=== PATIENT | female | born 1930 | race Caucasian/White ===

== ENCOUNTER → 2017-04-05 | Outpatient (CLI) | payer MEDICARE | END | disposition home or self-care (01) | LOC: KCIC US 14:12 | DX: N83.291 Other ovarian cyst, right side (principal); Z90.710 Acquired absence of both cervix and uterus | CPT/HCPCS: 76856 ==

== ENCOUNTER → 2017-04-14 | Outpatient (CLI) | payer MEDICARE ==
[2017-04-14] MEDS: IOHEXOL 240 MG/ML 50ML VIAL. PO (14:45)
[2017-04-14] MEDS: IOHEXOL 300 MG/ML 100ML VIAL. IV (15:11)
[2017-04-14 15:17] LABS: ISTAT CREATININE 0.7 mg/dL (0.6-1.1)
== END | disposition home or self-care (01) ==
LOC: KCIC CT 13:53
DX: N28.1 Cyst of kidney, acquired (principal); D73.89 Other diseases of spleen; Z90.49 Acquired absence of other specified parts of digestive tract
CPT/HCPCS: 74177; 82565; Q9966; Q9967

== ENCOUNTER 2017-04-26 10:33 | Inpatient (IN) | payer MEDICARE ==
[2017-04-26 11:10] LABS: ADD MAN DIFF? NO
[2017-04-26 11:14] LABS: BASO % 0 % (0-3); EOS # 0.1 x10^3/uL (0.0-0.7); EOS % 1 % (0-3); HEMATOCRIT 45.6 % (36.0-47.0); HEMOGLOBIN 15.1 g/dL (12.0-15.5); LYMPH # 1.2 x10^3/uL (1.0-4.8); LYMPH % 10 % (24-48); MEAN CORPUSCULAR HEMOGLOBIN 30 pg (25-35); MEAN CORPUSCULAR HGB CONC 33 g/dL (31-37); MEAN CORPUSCULAR VOLUME 89 fL (79-100); MONO # 0.5 x10^3/uL (0.0-1.1); MONO % 5 % (0-9); NEUT # 9.6 x10^3uL (1.8-7.7); NEUT % 83 % (31-73); PLATELET COUNT 157 x10^3/uL (140-400); RED CELL DISTRIBUTION WIDTH 13.4 % (11.5-14.5); WHITE BLOOD COUNT 11.5 x10^3/uL (4.0-11.0)
[2017-04-26 11:23] LABS: ANION GAP 8 (6-14); BLOOD UREA NITROGEN 13 mg/dL (7-20); BUN/CREATININE RATIO 19 (6-20); CALCIUM 9.4 mg/dL (8.5-10.1); CARBON DIOXIDE 35 mmol/L (21-32); CHLORIDE 98 mmol/L (98-107); CREATININE 0.7 mg/dL (0.6-1.0); GFR 79.5; GLUCOSE 131 mg/dL (70-99); POTASSIUM 4.3 mmol/L (3.5-5.1); SODIUM 141 mmol/L (136-145)
[2017-04-26 11:28] LABS: ALBUMIN 3.6 g/dL (3.4-5.0); ALBUMIN/GLOBULIN RATIO 0.8 (1.0-1.7); ALK PHOS 106 U/L (46-116); ALT (SGPT) 22 U/L (14-59); AST (SGOT) 29 U/L (15-37); TOTAL BILIRUBIN 0.8 mg/dL (0.2-1.0); TOTAL PROTEIN 7.9 g/dL (6.4-8.2)
[2017-04-26 11:31] LABS: TROPONINI < 0.017 ng/mL (0.000-0.055)
[2017-04-26 11:34] LABS: NT-PRO BNP 958 pg/mL (0-449)
[2017-04-26 11:35] LABS: THYROID STIM HORMONE (TSH) 1.832 uIU/mL (0.358-3.74)
[2017-04-26] MEDS: AZITHRMYCN 500MG IVPB FOR OMNI 250 ML IV (12:39)
[2017-04-26] MEDS ORDERED: HYDROcodone/APAP 10/325 1 TAB TABLET PO (12:45)
[2017-04-26] MEDS ORDERED: MAGNESIUM HYDROXIDE 2,400 MG/30 ML ORAL.SUSP. PO (12:45)
[2017-04-26] MEDS ORDERED: LIDOCAINE 2% 20 ML VIAL. (12:49)
[2017-04-26 12:52] LABS: INFLUENZA A PATIENT NEGATIVE (NEGATIVE); INFLUENZA B PATIENT NEGATIVE (NEGATIVE); OBC FLU VALID
[2017-04-26] MEDS ORDERED: MIDAZOLAM HCL/PF 2 MG/2 ML VIAL. (13:08)
[2017-04-26] MEDS ORDERED: fentaNYL PF VIAL 100 MCG/2 ML VIAL (13:08)
[2017-04-26] MEDS ORDERED: ONDANSETRON PF 4 MG/2 ML VIAL. IV (13:15)
[2017-04-26] MEDS: LIDOCAINE 2% 20 ML VIAL. IJ (14:03)
[2017-04-26] MEDS: fentaNYL PF VIAL 100 MCG/2 ML VIAL IV (14:03)
[2017-04-26] MEDS: MIDAZOLAM HCL/PF 2 MG/2 ML VIAL. IV (14:04)
[2017-04-26] MEDS ORDERED: ceFAZolin SODIUM 1 GM in IV DEXTROSE 5% 50 ML IV (14:15)
[2017-04-26] MEDS ORDERED: ZOLPIDEM 5 MG TABLET. PO (14:15)
[2017-04-26] MEDS: cefTRIAXone IV Push 1 GM VIAL. IVP (15:00)
[2017-04-26] MEDS ORDERED: CHOLECALCIFEROL (VITAMIN D3) 1,000 UNIT TABLET PO (15:00)
[2017-04-26] MEDS: IPRATRPIUM/ALBUTEROL 0.5/2.5MG 3 ML NEBU. NEB ×2 (15:59→19:16)
[2017-04-26] MEDS ORDERED: IPRATRPIUM/ALBUTEROL 0.5/2.5MG 3 ML NEBU. NEB (16:00)
[2017-04-26] MEDS: fentaNYL 25MCG/HR PATCH 1 PATCH PATCH.TD72 TD (16:17)
[2017-04-26] MEDS: LOSARTAN POTASSIUM 25 MG TABLET. PO (16:17)
[2017-04-26] MEDS: ceFAZolin SODIUM IV Push 1 GM VIAL. IVP ×2 (16:18→21:15)
[2017-04-26] MEDS: PANTOPRAZOLE 40 MG TABLET.DR. PO (16:28)
[2017-04-26] MEDS: ALPRAZolam 0.25 MG TABLET PO ×2 (17:00→20:58)
[2017-04-26] MEDS: BUDESONIDE 0.5 MG/2 ML NEBU. NEB (19:16)
[2017-04-26 20:49] LABS: POC GLUCOSE 145 mg/dL (70-99)
[2017-04-26] MEDS: PREGABALIN 75 MG CAPSULE PO (20:58)
[2017-04-26] MEDS: HYDROXYCHLOROQUINE 200 MG TABLET PO (20:58)
[2017-04-26] MEDS: DULoxetine HCL 20 MG CAPSULE.DR PO (20:58)
[2017-04-26] MEDS: DOCUSATE SODIUM 100 MG CAPSULE. PO (20:58)
[2017-04-26] MEDS: ZOLPIDEM 5 MG TABLET. PO (20:59)
[2017-04-26] MEDS: ACETAMINOPHEN 325 MG TABLET. PO (21:10)
[2017-04-26] MEDS: LABETALOL 20 MG/4 ML DISP.SYRIN. IVP (21:32)
[2017-04-27 05:51] LABS: ADD MAN DIFF? NO
[2017-04-27 05:56] LABS: BASO % 0 % (0-3); EOS # 0.1 x10^3/uL (0.0-0.7); EOS % 1 % (0-3); HEMATOCRIT 40.9 % (36.0-47.0); HEMOGLOBIN 13.2 g/dL (12.0-15.5); LYMPH # 1.7 x10^3/uL (1.0-4.8); LYMPH % 17 % (24-48); MEAN CORPUSCULAR HEMOGLOBIN 29 pg (25-35); MEAN CORPUSCULAR HGB CONC 32 g/dL (31-37); MEAN CORPUSCULAR VOLUME 91 fL (79-100); MONO # 0.7 x10^3/uL (0.0-1.1); MONO % 7 % (0-9); NEUT # 7.3 x10^3uL (1.8-7.7); NEUT % 74 % (31-73); PLATELET COUNT 141 x10^3/uL (140-400); RED BLOOD COUNT 4.52 x10^6/uL (3.50-5.40); RED CELL DISTRIBUTION WIDTH 13.5 % (11.5-14.5); WHITE BLOOD COUNT 9.8 x10^3/uL (4.0-11.0)
[2017-04-27] MEDS: ceFAZolin SODIUM IV Push 1 GM VIAL. IVP (06:11)
[2017-04-27 06:19] LABS: ANION GAP 8 (6-14); BLOOD UREA NITROGEN 11 mg/dL (7-20); CALCIUM 8.7 mg/dL (8.5-10.1); CARBON DIOXIDE 33 mmol/L (21-32); CHLORIDE 99 mmol/L (98-107); CHOLESTEROL 164 mg/dL (0-200); CREATININE 0.8 mg/dL (0.6-1.0); GFR 68.2; GLUCOSE 90 mg/dL (70-99); HDLC 62 mg/dL (40-60); LDLC 82 mg/dL (0-100); NON-HDL CHOLESTEROL 102 mg/dL (0-129); POTASSIUM 3.6 mmol/L (3.5-5.1); SODIUM 140 mmol/L (136-145); TRIGLYCERIDES 101 mg/dL (0-150); VLDLC 20 mg/dL (0-40)
[2017-04-27 06:23] LABS: CHOLESTEROL/HDL RATIO 2.6
[2017-04-27] MEDS: IPRATRPIUM/ALBUTEROL 0.5/2.5MG 3 ML NEBU. NEB ×4 (07:32→19:36)
[2017-04-27] MEDS: BUDESONIDE 0.5 MG/2 ML NEBU. NEB ×2 (07:32→19:36)
[2017-04-27 08:31] LABS: POC GLUCOSE 94 mg/dL (70-99)
[2017-04-27] MEDS: PANTOPRAZOLE 40 MG TABLET.DR. PO (08:53)
[2017-04-27] MEDS: AZITHROMYCIN 250 MG TABLET. PO (08:54)
[2017-04-27] MEDS: PREGABALIN 75 MG CAPSULE PO ×2 (08:55→20:51)
[2017-04-27] MEDS: DULoxetine HCL 20 MG CAPSULE.DR PO ×2 (08:55→20:51)
[2017-04-27] MEDS: HYDROXYCHLOROQUINE 200 MG TABLET PO ×2 (08:56→20:51)
[2017-04-27] MEDS: ALPRAZolam 0.25 MG TABLET PO ×2 (08:56→20:51)
[2017-04-27] MEDS: DOCUSATE SODIUM 100 MG CAPSULE. PO ×2 (08:57→20:51)
[2017-04-27] MEDS: LOSARTAN POTASSIUM 25 MG TABLET. PO (08:57)
[2017-04-27] MEDS ORDERED: LIDOCAINE 2%/EPI 1:100,000 20 ML VIAL. (12:04)
[2017-04-27 12:34] LABS: POC GLUCOSE 95 mg/dL (70-99)
[2017-04-27] MEDS ORDERED: MIDAZOLAM HCL/PF 2 MG/2 ML VIAL. ×2 (13:33→14:03)
[2017-04-27] MEDS ORDERED: fentaNYL PF VIAL 100 MCG/2 ML VIAL (13:33)
[2017-04-27] MEDS ORDERED: diphenhydrAMINE 50 MG/ML VIAL (14:13)
[2017-04-27] MEDS: diphenhydrAMINE 50 MG/ML VIAL IVP (15:02)
[2017-04-27] MEDS: MIDAZOLAM HCL/PF 2 MG/2 ML VIAL. IV (15:04)
[2017-04-27] MEDS: fentaNYL PF VIAL 100 MCG/2 ML VIAL IV (15:04)
[2017-04-27] MEDS: BACITRACIN 50,000 UNIT in IV NORMAL SALINE 250ML 250 ML IRR (15:04)
[2017-04-27] MEDS: LIDOCAINE 2%/EPI 1:100,000 20 ML VIAL. IJ (15:05)
[2017-04-27] MEDS: cefTRIAXone IV Push 1 GM VIAL. IVP (17:05)
[2017-04-27 17:43] LABS: POC GLUCOSE 208 mg/dL (70-99)
[2017-04-27] MEDS ORDERED: ONDANSETRON PF 4 MG/2 ML VIAL. IV (17:45)
[2017-04-27] MEDS ORDERED: NO ANTICOAGULANT THERAPY. MC (17:45)
[2017-04-27] MEDS: LACTOBACILLUS RHAMNOSUS GG 1 CAPSULE. PO (20:51)
[2017-04-27] MEDS: ZOLPIDEM 5 MG TABLET. PO (20:51)
[2017-04-27 21:00] LABS: POC GLUCOSE 149 mg/dL (70-99)
[2017-04-28 00:11] LABS: HEMOGLOBIN A1C 5.4 % (4.8-5.6)
[2017-04-28 03:22] LABS: ADD MAN DIFF? NO
[2017-04-28] MEDS: HYDROcodone/APAP 5/325MG 1 TAB TABLET PO (03:24)
[2017-04-28 03:36] LABS: ANION GAP 5 (6-14); BLOOD UREA NITROGEN 13 mg/dL (7-20); CARBON DIOXIDE 34 mmol/L (21-32); CHLORIDE 99 mmol/L (98-107); CREATININE 0.8 mg/dL (0.6-1.0); GFR 68.2; GLUCOSE 101 mg/dL (70-99); POTASSIUM 3.8 mmol/L (3.5-5.1); SODIUM 138 mmol/L (136-145)
[2017-04-28 05:04] LABS: BASO % 0 % (0-3); EOS # 0.2 x10^3/uL (0.0-0.7); EOS % 2 % (0-3); HEMATOCRIT 39.6 % (36.0-47.0); LYMPH # 1.5 x10^3/uL (1.0-4.8); LYMPH % 15 % (24-48); MEAN CORPUSCULAR HEMOGLOBIN 30 pg (25-35); MEAN CORPUSCULAR HGB CONC 33 g/dL (31-37); MEAN CORPUSCULAR VOLUME 90 fL (79-100); MONO # 0.8 x10^3/uL (0.0-1.1); MONO % 9 % (0-9); NEUT # 7.1 x10^3uL (1.8-7.7); NEUT % 75 % (31-73); PLATELET COUNT 139 x10^3/uL (140-400); RED CELL DISTRIBUTION WIDTH 13.8 % (11.5-14.5); WHITE BLOOD COUNT 9.5 x10^3/uL (4.0-11.0)
[2017-04-28] MEDS: IPRATRPIUM/ALBUTEROL 0.5/2.5MG 3 ML NEBU. NEB ×4 (07:36→20:06)
[2017-04-28] MEDS: BUDESONIDE 0.5 MG/2 ML NEBU. NEB ×2 (07:36→20:06)
[2017-04-28 09:02] LABS: POC GLUCOSE 93 mg/dL (70-99)
[2017-04-28] MEDS: PANTOPRAZOLE 40 MG TABLET.DR. PO (09:05)
[2017-04-28] MEDS: AZITHROMYCIN 250 MG TABLET. PO (09:05)
[2017-04-28] MEDS: DOCUSATE SODIUM 100 MG CAPSULE. PO ×2 (09:05→22:36)
[2017-04-28] MEDS: HYDROXYCHLOROQUINE 200 MG TABLET PO ×2 (09:05→22:41)
[2017-04-28] MEDS: LACTOBACILLUS RHAMNOSUS GG 1 CAPSULE. PO ×2 (09:05→22:42)
[2017-04-28] MEDS: ALPRAZolam 0.25 MG TABLET PO ×2 (09:05→22:41)
[2017-04-28] MEDS: PREGABALIN 75 MG CAPSULE PO ×2 (09:05→22:42)
[2017-04-28] MEDS: LOSARTAN POTASSIUM 25 MG TABLET. PO (09:06)
[2017-04-28] MEDS: DULoxetine HCL 20 MG CAPSULE.DR PO ×2 (11:06→22:43)
[2017-04-28] MEDS: LACTULOSE 20 GM/30 ML SOLUTION. PO (11:11)
[2017-04-28 21:40] LABS: POC GLUCOSE 155 mg/dL (70-99)
[2017-04-28] MEDS: CEFPODOXIME PROXETIL 100 MG TABLET. PO (22:41)
[2017-04-28] MEDS: ZOLPIDEM 5 MG TABLET. PO (22:42)
[2017-04-29] MEDS: BUDESONIDE 0.5 MG/2 ML NEBU. NEB (07:06)
[2017-04-29] MEDS: IPRATRPIUM/ALBUTEROL 0.5/2.5MG 3 ML NEBU. NEB ×2 (07:06→11:28)
[2017-04-29 08:02] LABS: POC GLUCOSE 121 mg/dL (70-99)
[2017-04-29] MEDS: DULoxetine HCL 20 MG CAPSULE.DR PO (08:35)
[2017-04-29] MEDS: PANTOPRAZOLE 40 MG TABLET.DR. PO (08:35)
[2017-04-29] MEDS: AZITHROMYCIN 250 MG TABLET. PO (08:35)
[2017-04-29] MEDS: CEFPODOXIME PROXETIL 100 MG TABLET. PO (08:35)
[2017-04-29] MEDS: HYDROXYCHLOROQUINE 200 MG TABLET PO (08:35)
[2017-04-29] MEDS: PREGABALIN 75 MG CAPSULE PO (08:36)
[2017-04-29] MEDS: LACTOBACILLUS RHAMNOSUS GG 1 CAPSULE. PO (08:36)
[2017-04-29] MEDS: DOCUSATE SODIUM 100 MG CAPSULE. PO (08:36)
[2017-04-29] MEDS: LOSARTAN POTASSIUM 25 MG TABLET. PO (08:36)
[2017-04-29] MEDS: ALPRAZolam 0.25 MG TABLET PO (08:36)
[2017-04-29 11:33] LABS: POC GLUCOSE 121 mg/dL (70-99)
[2017-04-29] MEDS: fentaNYL 25MCG/HR PATCH 1 PATCH PATCH.TD72 TD (11:51)
[2017-04-29] MEDS: CARVEDILOL 3.125 MG TABLET. PO (13:25)
== END 2017-04-29 15:17 | disposition home health service (06) | DRG 242 ==
LOC: ER 10:33 → 2 NORTH 13:00
PROC: 5A1213Z Performance of Cardiac Pacing, Intermittent (ICD-10-PCS; 2017-04-26)
PROC: 0JH606Z Insertion of Pacemaker, Dual Chamber into Chest Subcutaneous Tissue and Fascia, Open Approach (ICD-10-PCS; principal; 2017-04-27)
PROC: 02H63JZ Insertion of Pacemaker Lead into Right Atrium, Percutaneous Approach (ICD-10-PCS; 2017-04-27)
PROC: 02HK3JZ Insertion of Pacemaker Lead into Right Ventricle, Percutaneous Approach (ICD-10-PCS; 2017-04-27)
DX: I49.5 Sick sinus syndrome (principal); J96.21 Acute and chronic respiratory failure with hypoxia; I11.0 Hypertensive heart disease with heart failure; J18.9 Pneumonia, unspecified organism; E11.42 Type 2 diabetes mellitus with diabetic polyneuropathy; I50.9 Heart failure, unspecified; J44.0 Chronic obstructive pulmonary disease with (acute) lower respiratory infection; J44.1 Chronic obstructive pulmonary disease with (acute) exacerbation; E78.5 Hyperlipidemia, unspecified; G47.33 Obstructive sleep apnea (adult) (pediatric); G90.01 Carotid sinus syncope; I25.10 Atherosclerotic heart disease of native coronary artery without angina pectoris; J20.9 Acute bronchitis, unspecified; K21.9 Gastro-esophageal reflux disease without esophagitis; K59.00 Constipation, unspecified; M06.9 Rheumatoid arthritis, unspecified; M79.7 Fibromyalgia; Z80.8 Family history of malignant neoplasm of other organs or systems; Z82.49 Family history of ischemic heart disease and other diseases of the circulatory system; Z87.81 Personal history of (healed) traumatic fracture; Z87.891 Personal history of nicotine dependence; Z90.710 Acquired absence of both cervix and uterus; Z91.19 Patient's noncompliance with other medical treatment and regimen; Z99.81 Dependence on supplemental oxygen; E66.9 Obesity, unspecified; Z68.30 Body mass index [BMI] 30.0-30.9, adult; F32.9 Major depressive disorder, single episode, unspecified; G89.29 Other chronic pain; Z88.2 Allergy status to sulfonamides; Z91.041 Radiographic dye allergy status
CPT/HCPCS: 33210; 33217; 36415; 71045; 71250; 80048; 80053; 80061; 82962; 83036; 83880; 84443; 84484; 85025; 87804; 87804-59; 93005; 93306; 93970; 94640; 94760; 96365; 96367; 99152; 99153; 99285-25; C1785; C1892; C1898; J0456; J0690; J0696; J1200; J1644; J2250; J3010; J3490; J7050; J7620; J7626; Q0144

== ENCOUNTER → 2017-05-22 | Outpatient (CLI) | payer MEDICARE | END | disposition home or self-care (01) | LOC: PMGWOUND 13:13 | DX: E11.621 Type 2 diabetes mellitus with foot ulcer (principal); L97.412 Non-pressure chronic ulcer of right heel and midfoot with fat layer exposed; F32.9 Major depressive disorder, single episode, unspecified; F41.9 Anxiety disorder, unspecified; M19.90 Unspecified osteoarthritis, unspecified site; E78.00 Pure hypercholesterolemia, unspecified; E66.9 Obesity, unspecified; E11.42 Type 2 diabetes mellitus with diabetic polyneuropathy; J44.9 Chronic obstructive pulmonary disease, unspecified; K21.9 Gastro-esophageal reflux disease without esophagitis; I25.10 Atherosclerotic heart disease of native coronary artery without angina pectoris; J44.0 Chronic obstructive pulmonary disease with (acute) lower respiratory infection; J44.1 Chronic obstructive pulmonary disease with (acute) exacerbation; I11.0 Hypertensive heart disease with heart failure; I50.9 Heart failure, unspecified; E78.5 Hyperlipidemia, unspecified; G47.33 Obstructive sleep apnea (adult) (pediatric); G89.29 Other chronic pain; M06.9 Rheumatoid arthritis, unspecified; Z87.891 Personal history of nicotine dependence; Z90.49 Acquired absence of other specified parts of digestive tract; Z90.710 Acquired absence of both cervix and uterus; Z68.30 Body mass index [BMI] 30.0-30.9, adult | CPT/HCPCS: 97597 ==

== ENCOUNTER → 2017-05-30 | Outpatient (CLI) | payer MEDICARE | END | disposition home or self-care (01) | LOC: PMGWOUND 13:00 | DX: E11.621 Type 2 diabetes mellitus with foot ulcer (principal); L97.412 Non-pressure chronic ulcer of right heel and midfoot with fat layer exposed; F32.9 Major depressive disorder, single episode, unspecified; F41.9 Anxiety disorder, unspecified; M19.90 Unspecified osteoarthritis, unspecified site; E78.00 Pure hypercholesterolemia, unspecified; E66.9 Obesity, unspecified; E11.42 Type 2 diabetes mellitus with diabetic polyneuropathy; J44.9 Chronic obstructive pulmonary disease, unspecified; K21.9 Gastro-esophageal reflux disease without esophagitis; I25.10 Atherosclerotic heart disease of native coronary artery without angina pectoris; J44.0 Chronic obstructive pulmonary disease with (acute) lower respiratory infection; J44.1 Chronic obstructive pulmonary disease with (acute) exacerbation; I11.0 Hypertensive heart disease with heart failure; I50.9 Heart failure, unspecified; G47.33 Obstructive sleep apnea (adult) (pediatric); G89.29 Other chronic pain; M06.9 Rheumatoid arthritis, unspecified; Z87.891 Personal history of nicotine dependence; Z90.49 Acquired absence of other specified parts of digestive tract; Z90.710 Acquired absence of both cervix and uterus; Z68.30 Body mass index [BMI] 30.0-30.9, adult; Z95.0 Presence of cardiac pacemaker; Z98.62 Peripheral vascular angioplasty status | CPT/HCPCS: 99214 ==

== ENCOUNTER → 2017-06-06 | Outpatient (CLI) | payer MEDICARE | END | disposition home or self-care (01) | LOC: PMGWOUND 11:55 | DX: E11.621 Type 2 diabetes mellitus with foot ulcer (principal); L97.512 Non-pressure chronic ulcer of other part of right foot with fat layer exposed; L97.411 Non-pressure chronic ulcer of right heel and midfoot limited to breakdown of skin; F41.9 Anxiety disorder, unspecified; I25.10 Atherosclerotic heart disease of native coronary artery without angina pectoris; J44.1 Chronic obstructive pulmonary disease with (acute) exacerbation; K21.9 Gastro-esophageal reflux disease without esophagitis; I11.0 Hypertensive heart disease with heart failure; I50.9 Heart failure, unspecified; F32.9 Major depressive disorder, single episode, unspecified; G47.33 Obstructive sleep apnea (adult) (pediatric); G89.29 Other chronic pain; E78.00 Pure hypercholesterolemia, unspecified; M06.9 Rheumatoid arthritis, unspecified; E11.42 Type 2 diabetes mellitus with diabetic polyneuropathy; M19.90 Unspecified osteoarthritis, unspecified site; Z90.49 Acquired absence of other specified parts of digestive tract; Z90.710 Acquired absence of both cervix and uterus; Z87.891 Personal history of nicotine dependence; Z98.62 Peripheral vascular angioplasty status; Z68.30 Body mass index [BMI] 30.0-30.9, adult; Z95.0 Presence of cardiac pacemaker | CPT/HCPCS: 97597 ==

== ENCOUNTER 2018-02-13 07:30 | Emergency (ER) | payer MEDICARE ==
[~2018-02-13] VITALS: Ht 152.4 cm; Wt 69.4 kg
[~2018-02-13 07:30] MED LIST: ALBU2.5V14 IH; ALBU2.5V14 NEB; ALPR0.25 PO; ALPR0.254 PO; ALPR0.5T PO; ALPR0.5T10 PO; ALPR0.5T6 PO; AMOX500C PO; AZIT250T6 PO; BISA-42 PO; CARV12.511 PO; CARV3.1210 PO; CARV6.25 PO; CEFP100T PO; CHOL100013 PO; CLON0.2T PO; CRAN400T5 PO; CRAN500C6 PO; CRESTOR5 MG PO; CYCL10TA2 PO; DOCU-109 PO; DULO20CA PO; DULO30CA2 PO; DULO60CA6 PO; FENT1PAT13 TP; FENT1PAT15 TP; FENT1PAT17 TP; FENT1PAT90 TD; FLUT1DIS3 IH; FURO20TA3 PO; HYDR-2769 PO; HYDR-3135 PO; HYDR200T5 PO; INSU100I11 SQ; INSU100I16 SQ; LIDO700A39 TP; LIDO700A4 TP; LOSA25TA PO; LOSA25TA54 PO; MELA1TAB11 PO; MELA3TAB2 PO; METO-239 PO; MULT-208 PO; NIAC500C6 PO; OMEP20CA9 PO; POLY500P13 MC; POTA10TA12 PO; PRED-220 PO; PRED20TA PO; PREG75CA PO; TOBR5DRO6 OS; TOBR5DRO6 OU; ZOLP10TA4 PO; ZOLP5TAB PO; melatonin PO
[2018-02-13] MEDS ORDERED: ACETAMINOPHEN 325 MG TABLET. PO ONE (08:15)
--- NOTE | 2018-02-13 08:21 | PHYS DOC ---
Past Medical History Past Medical History: Arthritis, CAD, CHF, Constipation, COPD, Depression, Diabetes-Type II, Fibromyalgia, GERD, Hypertension, Pneumonia, UTI, Other Additional Past Medical Histor: NEUROPATHY Past Surgical History: Appendectomy, Cholecystectomy, Hysterectomy, Pacemaker, Other Additional Past Surgical Histo: NECK/BACK,HIP,EYE,CARPAL TUNNEL Alcohol Use: None Drug Use: None Adult General Chief Complaint Chief Complaint: LACERATION/AVULSION HPI HPI 87 y/o female presents to ER for complaints of mechanical fall. She reports she was attempting to get out of bed this morning when she lost her balance causing her to fall forward. Patient states she struck her head on the wooden floor having laceration to her forehead. Patient reports she had her corrective glasses on- she denies glasses broke during the fall. She reports she does have some tenderness around her eyebrows with no wounds or abrasions. Denies loss of consciousness. Patient denies any symptoms prior to the fall. Patient denies any dizziness or vision changes. Patient states she has chronic pain and has a fentanyl patch on. Patient denies any acute neck or back pain. Patient denies any vomiting episodes. Patient's son Tono who is at bedside denies patient with confusion or change in mental status since fall. Review of Systems Review of Systems Constitutional: Denies lethargy/confusion Eyes: Denies change in visual acuity, redness, or eye pain [] HENT: Denies nosebleed Respiratory: Denies cough or shortness of breath [] Cardiovascular: Denies CP GI: Denies abdominal pain, nausea, vomiting, bloody stools or diarrhea [] : Denies dysuria or hematuria [] Musculoskeletal: Reports chronic neck/back pain no acute changes. Reports lt upper arm pain Integument: Reports laceration mid forehead. Reports bruising to upper arms/ knees- which she reports she bruises easy and most bruising from previous injury Neurologic: Denies focal weakness or sensory changes. Denies dizziness. Reports mild WATSON All other systems were reviewed and found to be within normal limits, except as documented in this note. Current Medications Current Medications Current Medications Medications (Trade) Dose Ordered Sig/Lindsey Start Time Stop Time Status Last Admin Dose Admin Acetaminophen (Tylenol) 650 mg 1X ONCE 02/13/18 08:15 02/13/18 08:16 DC 02/13/18 08:15 650 MG Allergies Allergies Allergies Coded Allergies Type Severity Reaction Last Updated Verified Iodinated Contrast- Oral and IV Dye Allergy Intermediate Itching 07/31/17 Yes I S O L A T I O N *CONTACT* Allergy Unknown 07/31/17 Yes Physical Exam Physical Exam Constitutional: Well developed, well nourished, no acute distress, non-toxic appearance. Clear speech HENT: Normocephalic, abrasion/laceration mid forehead at hairline- no active bleeding/swelling or ecchymosis at site; bilateral ears normal, oropharynx moist , no oral injuries, bruising to bridge of nose- no swelling or open wounds. Bilat. nares patent Eyes: 2mm PERRLA, EOMI- no pain with eye movement, no nystagmus, conjunctiva normal, no discharge. [] Neck: Normal range of motion, diffuse tenderness on palp. of neck with pt reporting chronic in nature- no midline spinal deformity/crepitus, supple, no stridor. [] Cardiovascular: Heart rate regular rhythm, no murmur [] Lungs & Thorax: Bilateral breath sounds clear to auscultation. Resp. equal/ nonlabored. No chest wall tenderness/visible injury Abdomen: Bowel sounds normal, soft, no tenderness Skin: Warm, dry Back: Diffuse tenderness on palp. of back- no focal area or visible injury- pt reports pain to be chronic in nature with no acute change- no midline spinal deformity, no CVA tenderness. [] Extremities: Pelvis stable/nontender. No cyanosis, no clubbing, ROM intact, no edema. Bruising to upper extremities/bilat. knees- nontender on palp. with pt reporting she bruises easy and doesn't feel these are from today's fall. Lt upper arm midshaft tenderness with lateral ecchymosis- no deformity or open wounds. Pt has full ROM of lt shoulder/elbow/wrist/hand. 2+ radial bilat. 2+ posterior tibial/dorsalis pedis Neurologic: Alert and oriented X 3, normal motor function, normal sensory function, no focal deficits noted. [] Psychologic: Affect normal, judgement normal, mood normal. [] Current Patient Data Vital Signs Vital Signs Date Time Temp Pulse Resp B/P (MAP) Pulse Ox O2 Delivery O2 Flow Rate FiO2 02/13/18 10:24 82 20 186/85 (118) 96 Nasal Cannula 2.0 1/8/19 07:50 97.7 97.7 Lab Values Laboratory Tests Test 02/13/18 09:40 Urine Collection Type Clean catch Urine Color Yellow Urine Clarity Clear Urine pH 6.5 Urine Specific Landers 1.020 Urine Protein Negative mg/dL (NEG-TRACE) Urine Glucose (UA) Negative mg/dL (NEG) Urine Ketones (Stick) Negative mg/dL (NEG) Urine Blood Negative (NEG) Urine Nitrite Negative (NEG) Urine Bilirubin Negative (NEG) Urine Urobilinogen Dipstick 0.2 mg/dL (0.2 mg/dL) Urine Leukocyte Esterase Small (NEG) Urine RBC 0 /HPF (0-2) Urine WBC 1-4 /HPF (0-4) Urine Squamous Epithelial Cells Occ /LPF Urine Bacteria 0 /HPF (0-FEW) Urine Mucus Slight /LPF EKG EKG [] Radiology/Procedures Radiology/Procedures Laceration Repair by me: [id number] Anesthesia: none Location: Forehead hairline Foreign body: None detected after copious irrigation and exploration Technique: Dermabond Complexity: No subcutaneous sutures/edge excision Post Closure Length: 0.5 cm Patient's bleeding was easily controlled in the department and there is no indication of anemia. No evidence of neurologic injury, vascular injury, or foreign body. Patient is appropriate for outpatient follow up. 48 hour wound check. Scar minimization instructions given. PROCEDURE: CT HEAD AND CERVICAL SPINE WO Examination: CT head and cervical spine without contrast CT HEAD INDICATION: fall- front/back head injury
previous COMPARISON: None Available. Exposure: One or more of the following individualized dose reduction techniques were utilized for this examination: 1. Automated exposure control 2. Adjustment of the mA and/or kV according to patient size 3. Use of iterative reconstruction technique TECHNIQUE: 5 mm contiguous axial images were obtained from the skull base to the vertex in both bone and soft tissue algorithm. FINDINGS: Moderate bilateral periventricular white matter hypodensities likely chronic small vessel ischemic disease. There is mild soft tissue swelling identified in the mid upper forehead region likely secondary to soft tissue injury. No evidence of acute intracranial hemorrhage. No extra-axial fluid collections. No mass effect or midline shift. Ventricular size is appropriate. Basal cisterns are patent. No fractures identified.Silva-white differentiation is preserved.Paranasal sinuses and mastoid air cells are clear. IMPRESSION: 1. No acute intracranial findings. 2. Mild soft tissue swelling identified in the mid upper forehead region likely secondary to soft tissue injury. . CT CERVICAL SPINE INDICATION: fall- front/back head injury
previous COMPARISON: None Available. Technique: 2.5 mm contiguous axial images were obtained from the skull base through the cervicothoracic junction in both bone and soft tissue algorithm. Additional sagittal and coronal reconstructions were also performed. FINDINGS: Vertebral body heights are maintained. There is loss of normal cervical lordosis. The lateral masses of C1 are aligned upon C2. No fractures identified. Moderate to severe intervertebral disc height loss identified at C3-C4, C4-C5 vertebral levels. There is mild 2 mm anterolisthesis of C4 on C5. Moderate size anterior osteophyte formation identified at C4, C5, C6 vertebral levels. Diffuse disc bulges identified at C4-C5, C5-C6, C6-C7 vertebral levels. There is a small bony density measuring 7 mm extending from the medial left inferior facet of C4 extending into the spinal canal could be a bony excrescence or exostosis. Multilevel facet degenerative changes. Severe degenerative changes C1-C2 vertebral level. Calcification identified at the C1-C2 vertebral levels likely ligamentous calcification with mild narrowing of the cervicocranial junction. IMPRESSION: 1. Moderate to severe degenerative changes cervical spine as described above. There is a loss of normal cervical lordosis. No obvious acute fracture visualized. 2. A 7 mm small bony density extending from the medial left inferior facet of C4 extending into the spinal canal could be a bony excrescence or exostosis. Electronically signed by: Carl Medina MD (02/13/2018 10:14 AM) [facility] DICTATED and SIGNED BY: CARL MEDINA MD DATE: 02/13/18 0959 PROCEDURE: HUMERUS LEFT Left humerus, 2 views, 02/13/2017: HISTORY: Arm injury, pain There is mild patchy bony demineralization. Degenerative changes are present at the left shoulder. There are periarticular calcifications adjacent to the left AC joint. No acute fracture is identified. A pacemaker generator and leads are projected over the left upper chest. IMPRESSION: No acute bony abnormality is detected. Electronically signed by: Kenton Recinos MD (02/13/2018 8:52 AM) [facility] DICTATED and SIGNED BY: KENTON RECINOS MD DATE: 02/13/18 1022 Course & Med Decision Making Course & Med Decision Making Pertinent Labs and Imaging studies reviewed. (See chart for details) [] Dragon Disclaimer Dragon Disclaimer This electronic medical record was generated, in whole or in part, using a voice recognition dictation system. Departure Departure Impression: Primary Impression: Head injury Additional Impressions: Left upper arm injury Fall Disposition: HOME, SELF-CARE Condition: STABLE Referrals: KARAN KIMBLE MD (PCP) Patient Instructions: Arm Sling Use, [id number], Contusion, Fall Prevention and Home Safety, Head Injury, Adult, Laceration Care, Adult, Tissue Adhesive Wound Care Additional Instructions: Keep your appointment tomorrow with your primary care physician for reevaluation. Continue home medications as prescribed. Return to the emergency Department as soon as possible if experiencing any neurologic changes as discussed in head injury instructions. Problem Qualifiers CALVIN MCKEON APRN Feb 13, 2018 08:21
--- NOTE | 2018-02-13 08:56 | RAD ---
Left humerus, 2 views, 02/13/2017: HISTORY: Arm injury, pain There is mild patchy bony demineralization. Degenerative changes are present at the left shoulder. There are periarticular calcifications adjacent to the left AC joint. No acute fracture is identified. A pacemaker generator and leads are projected over the left upper chest. IMPRESSION: No acute bony abnormality is detected. Electronically signed by: Kenton Recinos MD (02/13/2018 8:52 AM) [facility]
[2018-02-13 10:01] LABS: BILIRUBIN,URINE NEGATIVE (NEG); CLARITY,URINE CLEAR; COLOR,URINE YELLOW; NITRITE,URINE NEGATIVE (NEG); PH,URINE 6.5; PROTEIN,URINE NEGATIVE (NEG-TRACE); UROBILINOGEN,URINE 0.2 mg/dL (0.2 mg/dL)
--- NOTE | 2018-02-13 10:19 | RAD ---
Examination: CT head and cervical spine without contrast CT HEAD INDICATION: fall- front/back head injury
previous COMPARISON: None Available. Exposure: One or more of the following individualized dose reduction techniques were utilized for this examination: 1. Automated exposure control 2. Adjustment of the mA and/or kV according to patient size 3. Use of iterative reconstruction technique TECHNIQUE: 5 mm contiguous axial images were obtained from the skull base to the vertex in both bone and soft tissue algorithm. FINDINGS: Moderate bilateral periventricular white matter hypodensities likely chronic small vessel ischemic disease. There is mild soft tissue swelling identified in the mid upper forehead region likely secondary to soft tissue injury. No evidence of acute intracranial hemorrhage. No extra-axial fluid collections. No mass effect or midline shift. Ventricular size is appropriate. Basal cisterns are patent. No fractures identified.Silva-white differentiation is preserved.Paranasal sinuses and mastoid air cells are clear. IMPRESSION: 1. No acute intracranial findings. 2. Mild soft tissue swelling identified in the mid upper forehead region likely secondary to soft tissue injury. . CT CERVICAL SPINE INDICATION: fall- front/back head injury
previous COMPARISON: None Available. Technique: 2.5 mm contiguous axial images were obtained from the skull base through the cervicothoracic junction in both bone and soft tissue algorithm. Additional sagittal and coronal reconstructions were also performed. FINDINGS: Vertebral body heights are maintained. There is loss of normal cervical lordosis. The lateral masses of C1 are aligned upon C2. No fractures identified. Moderate to severe intervertebral disc height loss identified at C3-C4, C4-C5 vertebral levels. There is mild 2 mm anterolisthesis of C4 on C5. Moderate size anterior osteophyte formation identified at C4, C5, C6 vertebral levels. Diffuse disc bulges identified at C4-C5, C5-C6, C6-C7 vertebral levels. There is a small bony density measuring 7 mm extending from the medial left inferior facet of C4 extending into the spinal canal could be a bony excrescence or exostosis. Multilevel facet degenerative changes. Severe degenerative changes C1-C2 vertebral level. Calcification identified at the C1-C2 vertebral levels likely ligamentous calcification with mild narrowing of the cervicocranial junction. IMPRESSION: 1. Moderate to severe degenerative changes cervical spine as described above. There is a loss of normal cervical lordosis. No obvious acute fracture visualized. 2. A 7 mm small bony density extending from the medial left inferior facet of C4 extending into the spinal canal could be a bony excrescence or exostosis. Electronically signed by: Carl Nelson MD (02/13/2018 10:14 AM) [facility]
[2018-02-13 10:20] LABS: BACTERIA,URINE 0 /HPF (0-FEW); RBC,URINE 0 /HPF (0-2); SQUAMOUS EPITHELIAL CELL,UR OCC /LPF
[2018-02-13 10:24] VITALS: BP 186/85
== END 2018-02-13 10:47 | disposition home or self-care (01) ==
LOC: ER 07:30
DX: S01.81XA Laceration without foreign body of other part of head, initial encounter (principal); S40.022A Contusion of left upper arm, initial encounter; M54.2 Cervicalgia; K21.9 Gastro-esophageal reflux disease without esophagitis; J44.9 Chronic obstructive pulmonary disease, unspecified; I11.0 Hypertensive heart disease with heart failure; I50.9 Heart failure, unspecified; E11.40 Type 2 diabetes mellitus with diabetic neuropathy, unspecified; I25.10 Atherosclerotic heart disease of native coronary artery without angina pectoris; Z95.0 Presence of cardiac pacemaker; Z91.041 Radiographic dye allergy status; W18.09XA Striking against other object with subsequent fall, initial encounter; Y93.89 Activity, other specified; Y92.89 Other specified places as the place of occurrence of the external cause; Y99.8 Other external cause status
CPT/HCPCS: 12011; 70450; 72125; 73060; 81001; 87086; 99284-25

== ENCOUNTER 2018-02-23 12:09 | Emergency (ER) | payer MEDICARE ==
[~2018-02-23] VITALS: Ht 152.4 cm; Wt 68.0 kg
[2018-02-23] MEDS: KETOROLAC 15 MG/ML VIAL. IV ONE (13:17)
[2018-02-23] MEDS: PROCHLORPERAZINE 10 MG/2 ML VIAL. IV ONE (13:18)
[2018-02-23] MEDS: MORPHINE SULFATE 4 MG/ML VIAL. IV ONE ×2 (13:18→14:34)
[2018-02-23] MEDS: IV NORMAL SALINE 500ML BAG 500 ML IV ONE (13:19)
[2018-02-23 13:49] LABS: CALCIUM 9.2 mg/dL (8.5-10.1); GFR 52.6; POTASSIUM 3.8 mmol/L (3.5-5.1)
[2018-02-23 14:22] LABS: BASO % 0 % (0-3); EOS # 0.1 x10^3/uL (0.0-0.7); EOS % 1 % (0-3); HEMATOCRIT 39.9 % (36.0-47.0); HEMOGLOBIN 13.5 g/dL (12.0-15.5); LYMPH # 1.3 x10^3/uL (1.0-4.8); LYMPH % 17 % (24-48); MEAN CORPUSCULAR HEMOGLOBIN 30 pg (25-35); MEAN CORPUSCULAR HGB CONC 34 g/dL (31-37); MEAN CORPUSCULAR VOLUME 88 fL (79-100); MONO # 0.5 x10^3/uL (0.0-1.1); MONO % 7 % (0-9); NEUT # 5.8 x10^3uL (1.8-7.7); NEUT % 76 % (31-73); PLATELET COUNT 172 x10^3/uL (140-400); RED BLOOD COUNT 4.54 x10^6/uL (3.50-5.40); RED CELL DISTRIBUTION WIDTH 14.5 % (11.5-14.5); WHITE BLOOD COUNT 7.7 x10^3/uL (4.0-11.0)
[2018-02-23] MEDS ORDERED: HYDR2TAB31 PO (15:02)
[2018-02-23 15:12] VITALS: BP 150/68
--- NOTE | 2018-02-23 15:18 | PHYS DOC ---
Past Medical History Past Medical History: Arthritis, CAD, CHF, Constipation, COPD, Depression, Diabetes-Type II, Fibromyalgia, GERD, Hypertension, Pneumonia, UTI, Other Additional Past Medical Histor: NEUROPATHY Past Surgical History: Appendectomy, Cholecystectomy, Hysterectomy, Pacemaker, Other Additional Past Surgical Histo: NECK/BACK,HIP,EYE,CARPAL TUNNEL Alcohol Use: None Drug Use: None Adult General Chief Complaint Chief Complaint: HEADACHE HPI HPI Patient is a 87 year old female who presents with generalized headaches. The patient fell about one week earlier. She was evaluated in this emergency department for facial trauma. She underwent CT scan of the head, neck, and face. There were no acute findings on her scan. She was discharged to home. The patient presents to the ER today complaining of persistent headaches. Headaches are bitemporal in nature and her normal pain medications including hydrocodone and fentanyl patch at home have not alleviated her headache symptoms. She also took some ibuprofen without relief. No nausea or vomiting. No vision changes. No dizziness or gait disturbance. The patient does have 24/7 nursing care in home at baseline. Primary complaint today is headache. No focal neurologic complaints. Review of Systems Review of Systems Constitutional: Denies fever or chills Eyes: Denies change in visual acuity HENT: Denies nasal congestion or sore throat Respiratory: Denies cough or shortness of breath Cardiovascular: No additional information not addressed in HPI GI: Denies abdominal pain, nausea, vomiting : Denies Musculoskeletal: Denies back pain Integument: Denies rash or skin lesions Neurologic: WATSON as documented above. No focal neurologic complaints Endocrine: Denies polyuria or polydipsia All other systems were reviewed and found to be within normal limits, except as documented in this note. Current Medications Current Medications Current Medications Medications (Trade) Dose Ordered Sig/Lindsey Start Time Stop Time Status Last Admin Dose Admin Ketorolac Tromethamine (Toradol 15mg Vial) 15 mg 1X ONCE 02/23/18 13:00 02/23/18 13:01 DC 02/23/18 13:17 15 MG Morphine Sulfate (Morphine Sulfate) 4 mg 1X ONCE 02/23/18 14:15 02/23/18 14:16 DC 02/23/18 14:34 4 MG Prochlorperazine Edisylate (Compazine) 10 mg 1X ONCE 02/23/18 13:00 02/23/18 13:01 DC 02/23/18 13:18 10 MG Sodium Chloride 500 ml @ 500 mls/hr 1X ONCE 02/23/18 13:00 02/23/18 13:59 DC 02/23/18 13:19 500 MLS/HR Allergies Allergies Allergies Coded Allergies Type Severity Reaction Last Updated Verified Iodinated Contrast- Oral and IV Dye Allergy Intermediate Itching 07/31/17 Yes I S O L A T I O N *CONTACT* Allergy Unknown 07/31/17 Yes Physical Exam Physical Exam Constitutional: Well developed, well nourished, no acute distress, non-toxic appearance HENT: Normocephalic, ecchymosis present around the bilateral orbits and zygoma, no acute swelling, bilateral external ears normal, oropharynx moist, no oral exudates, nose normal. Eyes: PERRLA, EOMI, conjunctiva normal Neck: Normal range of motion, no tenderness Cardiovascular:Heart rate regular rhythm, no murmur Lungs & Thorax: Bilateral breath sounds clear to auscultation Abdomen: Bowel sounds normal, soft, no tenderness Skin: Warm, dry, no erythema, no rash Back: No tenderness Extremities: No tenderness, no edema Neurologic: Alert and oriented X 3, normal motor function Psychologic: Affect normal Current Patient Data Vital Signs Vital Signs Date Time Temp Pulse Resp B/P (MAP) Pulse Ox O2 Delivery O2 Flow Rate FiO2 02/23/18 14:34 18 95 Room Air 02/23/18 12:28 97.5 65 156/67 (96) 2.0 97.5 Lab Values Laboratory Tests Test 02/23/18 13:10 White Blood Count 7.7 x10^3/uL (4.0-11.0) Red Blood Count 4.54 x10^6/uL (3.50-5.40) Hemoglobin 13.5 g/dL (12.0-15.5) Hematocrit 39.9 % (36.0-47.0) Mean Corpuscular Volume 88 fL (79-100) Mean Corpuscular Hemoglobin 30 pg (25-35) Mean Corpuscular Hemoglobin Concent 34 g/dL (31-37) Red Cell Distribution Width 14.5 % (11.5-14.5) Platelet Count 172 x10^3/uL (140-400) Neutrophils (%) (Auto) 76 % (31-73) H Lymphocytes (%) (Auto) 17 % (24-48) L Monocytes (%) (Auto) 7 % (0-9) Eosinophils (%) (Auto) 1 % (0-3) Basophils (%) (Auto) 0 % (0-3) Neutrophils # (Auto) 5.8 x10^3uL (1.8-7.7) Lymphocytes # (Auto) 1.3 x10^3/uL (1.0-4.8) Monocytes # (Auto) 0.5 x10^3/uL (0.0-1.1) Eosinophils # (Auto) 0.1 x10^3/uL (0.0-0.7) Basophils # (Auto) 0.0 x10^3/uL (0.0-0.2) Sodium Level 137 mmol/L (136-145) Potassium Level 3.8 mmol/L (3.5-5.1) Chloride Level 98 mmol/L (98-107) Carbon Dioxide Level 32 mmol/L (21-32) Anion Gap 7 (6-14) Blood Urea Nitrogen 16 mg/dL (7-20) Creatinine 1.0 mg/dL (0.6-1.0) Estimated GFR (Cockcroft-Gault) 52.6 Glucose Level 181 mg/dL (70-99) H Calcium Level 9.2 mg/dL (8.5-10.1) Troponin I Quantitative 0.023 ng/mL (0.000-0.055) Laboratory Tests 02/23/18 13:10 Laboratory Tests 02/23/18 13:10 EKG EKG [] Radiology/Procedures Radiology/Procedures [] Course & Med Decision Making Course & Med Decision Making Pertinent Labs and Imaging studies reviewed. (See chart for details) Patient is evaluated in the emergency department for headaches. She is initially given a dose of morphine, Compazine, and Toradol. This improved her headache mildly but it did return. Following that, she was given IV morphine only which did relieve her headache. I did review the patient's electronic medical record. She underwent CT scan of the head, C-spine, and face which were negative for acute findings. Today, the patient does have some residual ecchymosis bilaterally on the orbits. She has a normal neurologic exam. She has 5 over 5 motor strength. I discussed option of admission for pain control and possibly MRI to further evaluate her pain symptoms if indicated but the patient adamantly does not want to stay in the hospital. She is on chronic opiates at home and has increased tolerance as a result. Her hydrocodone at home has not been helping her pain symptoms. Plan today is for discharge to home. The patient was placed on Dilaudid tablets to use in lieu of of her hydrocodone to see if this relieves her pain symptoms. She also has some Flexeril at home which did offer her some relief. She is encouraged to continue to use that but not to mix with the Dilaudid. Lastly, the patient is advised to use some over- the-counter Excedrin as this may also offer some benefit for her headaches. Patient is advised to follow closely with her primary care physician, Dr. Castelan, or return to the ER for any new or worsening symptoms. She is agreeable to the plan of care. She is accompanied today by her family who are driving. Dragon Disclaimer Dragon Disclaimer This electronic medical record was generated, in whole or in part, using a voice recognition dictation system. Departure Departure Impression: Primary Impression: Post concussive syndrome Additional Impression: Generalized headaches Disposition: HOME, SELF-CARE Condition: GOOD Patient Instructions: Head Injury, Adult, [id number], Concussion and Brain Injury, [id number] Scripts Hydromorphone Hcl (DILAUDID) 2 Mg Tablet 1 TAB PO TID, #30 TAB Prov: JOB CRAMER DO 02/23/18 Problem Qualifiers JOB CRAMER DO Feb 23, 2018 15:18
== END 2018-02-23 15:19 | disposition home or self-care (01) ==
LOC: ER 12:09
DX: R51 Headache (principal); F07.81 Postconcussional syndrome; M19.90 Unspecified osteoarthritis, unspecified site; I25.10 Atherosclerotic heart disease of native coronary artery without angina pectoris; I11.0 Hypertensive heart disease with heart failure; J44.9 Chronic obstructive pulmonary disease, unspecified; K21.9 Gastro-esophageal reflux disease without esophagitis; E11.40 Type 2 diabetes mellitus with diabetic neuropathy, unspecified; Z90.49 Acquired absence of other specified parts of digestive tract; Z90.710 Acquired absence of both cervix and uterus; Z90.89 Acquired absence of other organs; Z95.0 Presence of cardiac pacemaker; Z91.041 Radiographic dye allergy status
CPT/HCPCS: 36415; 80048; 84484; 85025; 96374; 96375; 96376; 99284; J0780; J1885; J2270; J7040

== ENCOUNTER 2018-03-12 10:07 | Emergency (ER) | payer MEDICARE ==
[~2018-03-12] VITALS: Ht 152.4 cm; Wt 68.0 kg
[~2018-03-12 10:07] MED LIST changes: +HYDR2TAB31 PO; +LIDO700A21 TP; -LIDO700A39 TP; +OMEP20CA10 PO; -OMEP20CA9 PO
[2018-03-12 11:11] LABS: BASO % 0 % (0-3); EOS # 0.1 x10^3/uL (0.0-0.7); EOS % 1 % (0-3); HEMOGLOBIN 13.8 g/dL (12.0-15.5); LYMPH # 1.3 x10^3/uL (1.0-4.8); LYMPH % 19 % (24-48); MEAN CORPUSCULAR HEMOGLOBIN 29 pg (25-35); MEAN CORPUSCULAR HGB CONC 32 g/dL (31-37); MEAN CORPUSCULAR VOLUME 88 fL (79-100); MONO # 0.4 x10^3/uL (0.0-1.1); MONO % 6 % (0-9); NEUT # 5.1 x10^3uL (1.8-7.7); NEUT % 74 % (31-73); PLATELET COUNT 178 x10^3/uL (140-400); RED BLOOD COUNT 4.87 x10^6/uL (3.50-5.40); RED CELL DISTRIBUTION WIDTH 14.5 % (11.5-14.5); WHITE BLOOD COUNT 6.9 x10^3/uL (4.0-11.0)
--- NOTE | 2018-03-12 11:11 | RAD ---
Indication:PT STATES HAVING LEFT SIDED CHEST PAIN. TECHNIQUE:Portable AP chest X-ray COMPARISON:07/27/2017 FINDINGS: Heart is normal in size. Stable position of dual-lead cardiac pacer with leads projecting over the heart. Lungs are clear. No pneumothorax or pleural effusion. Visualized bony thorax is within normal limits. No acute pulmonary process. Electronically signed by: Brian Gallegos DO (03/12/2018 11:06 AM) [id number]
[2018-03-12 11:16] LABS: CALCIUM 9.4 mg/dL (8.5-10.1); CREATININE 1.7 mg/dL (0.6-1.0); GFR 28.5; POTASSIUM 3.6 mmol/L (3.5-5.1)
[2018-03-12 11:22] LABS: ALBUMIN 3.7 g/dL (3.4-5.0); ALBUMIN/GLOBULIN RATIO 0.9 (1.0-1.7); MAGNESIUM 1.9 mg/dL (1.8-2.4); TOTAL BILIRUBIN 0.6 mg/dL (0.2-1.0); TOTAL PROTEIN 7.9 g/dL (6.4-8.2)
[2018-03-12 11:26] LABS: PROTHROMBIN TIME PATIENT 13.2 SEC (11.7-14.0)
--- NOTE | 2018-03-12 11:27 | RAD ---
PQRS Compliance statement: One or more of the following individualized dose reduction techniques were utilized for this examination: 1. Automated exposure control. 2. Adjustment of the mA and/or kV according to patient size. 3. Use of iterative reconstruction technique. Indication:chest pain and weakness and headache
previous TECHNIQUE: CT head without IV contrast COMPARISON:02/13/2018 FINDINGS: No pathologic extra-axial or intra-axial fluid collection. Mild diffuse cerebral atrophy. The ventricles and basal cisterns are within normal limits. Confluent moderate periventricular and deep white matter low-attenuation is seen. No acute intracranial bleed. No focal loss of lindsay-white differentiation. Orbits are within normal limits. No suspicious calvarial lesion. Visualized paranasal sinuses and mastoid air cells are clear. IMPRESSION: 1. No acute intracranial process on this noncontrast CT. If concern for acute ischemic stroke is high, please consider MRI brain. 2. Moderate white matter changes, nonspecific but may be secondary to chronic microvascular ischemic disease. Electronically signed by: Brian Gallegos DO (03/12/2018 11:22 AM) [id number]
[2018-03-12 11:43] LABS: BILIRUBIN,URINE NEGATIVE (NEG); CLARITY,URINE CLEAR; COLOR,URINE YELLOW; NITRITE,URINE NEGATIVE (NEG); PROTEIN,URINE NEGATIVE (NEG-TRACE); UROBILINOGEN,URINE 0.2 mg/dL (0.2 mg/dL)
[2018-03-12 12:01] LABS: BACTERIA,URINE FEW /HPF (0-FEW); SQUAMOUS EPITHELIAL CELL,UR FEW /LPF
[2018-03-12 12:24] VITALS: BP 180/80
[2018-03-12] MEDS ORDERED: ONDA4TAB7 PO (12:24)
--- NOTE | 2018-03-12 12:25 | PHYS DOC ---
Past Medical History Past Medical History: Arthritis, CAD, CHF, Constipation, COPD, Depression, Diabetes-Type II, Fibromyalgia, GERD, Hypertension, Pneumonia, UTI, Other Additional Past Medical Histor: NEUROPATHY Past Surgical History: Appendectomy, Cholecystectomy, Hysterectomy, Pacemaker, Other Additional Past Surgical Histo: NECK/BACK,HIP,EYE,CARPAL TUNNEL, PACEMAKER Alcohol Use: None Drug Use: None Adult General Chief Complaint Chief Complaint: HEADACHE HPI HPI Patient is a 87 year old male who presents with complaining of headache and nausea and photophobia. Patient patient states she had an accidental fall from her bed that was about 3 feet high on February 13 and was seen in the emergency room and had unremarkable CT head and x-rays. Patient complaining of continuing to have headache as a constant pain with photophobia and nausea. Patient states she was in the emergency room twice with unremarkable finding but her headache is not getting better. Patient denies focal neuro deficit, vomiting, chest pain , shortness of breath, fever and chills, urinary symptom. Review of Systems Review of Systems Constitutional: Denies fever or chills [] Eyes: Denies change in visual acuity, redness, or eye pain [] HENT: Denies nasal congestion or sore throat [] Respiratory: Denies cough or shortness of breath [] Cardiovascular: No additional information not addressed in HPI [] GI: Denies abdominal pain, vomiting, bloody stools or diarrhea, reports nausea[ ] : Denies dysuria or hematuria [] Musculoskeletal: Denies back pain or joint pain [] Integument: Denies rash or skin lesions [] Neurologic: Reports headache, denies focal weakness or sensory changes [] Endocrine: Denies polyuria or polydipsia [] All other systems were reviewed and found to be within normal limits, except as documented in this note. Allergies Allergies Allergies Coded Allergies Type Severity Reaction Last Updated Verified Iodinated Contrast- Oral and IV Dye Allergy Intermediate Itching 07/31/17 Yes I S O L A T I O N *CONTACT* Allergy Unknown 07/31/17 Yes Physical Exam Physical Exam Constitutional: Well developed, well nourished, mild distress, non-toxic appearance. [] HENT: Normocephalic, atraumatic, bilateral external ears normal, oropharynx moist, no oral exudates, nose normal. [] Eyes: PERRLA, EOMI, conjunctiva normal, no discharge. [] Neck: Normal range of motion, no tenderness, supple, no stridor. [] Cardiovascular:Heart rate regular rhythm, no murmur [] Lungs & Thorax: Bilateral breath sounds clear to auscultation [] Abdomen: Bowel sounds normal, soft, no tenderness, no masses, no pulsatile masses. [] Skin: Warm, dry, no erythema, no rash. [] Back: No tenderness, no CVA tenderness. [] Extremities: No tenderness, no cyanosis, no clubbing, ROM intact, no edema. [] Neurologic: Alert and oriented X 3, normal motor function, normal sensory function, no focal deficits noted. [] Psychologic: Affect anxious, judgement normal, mood normal. [] Current Patient Data Vital Signs Vital Signs Date Time Temp Pulse Resp B/P (MAP) Pulse Ox O2 Delivery O2 Flow Rate FiO2 03/12/18 12:24 60 18 99 03/12/18 10:15 97.8 134/79 (97) Room Air 97.8 Lab Values Laboratory Tests Test 03/12/18 10:30 03/12/18 11:15 03/12/18 11:22 White Blood Count 6.9 x10^3/uL (4.0-11.0) Red Blood Count 4.87 x10^6/uL (3.50-5.40) Hemoglobin 13.8 g/dL (12.0-15.5) Hematocrit 43.0 % (36.0-47.0) Mean Corpuscular Volume 88 fL (79-100) Mean Corpuscular Hemoglobin 29 pg (25-35) Mean Corpuscular Hemoglobin Concent 32 g/dL (31-37) Red Cell Distribution Width 14.5 % (11.5-14.5) Platelet Count 178 x10^3/uL (140-400) Neutrophils (%) (Auto) 74 % (31-73) H Lymphocytes (%) (Auto) 19 % (24-48) L Monocytes (%) (Auto) 6 % (0-9) Eosinophils (%) (Auto) 1 % (0-3) Basophils (%) (Auto) 0 % (0-3) Neutrophils # (Auto) 5.1 x10^3uL (1.8-7.7) Lymphocytes # (Auto) 1.3 x10^3/uL (1.0-4.8) Monocytes # (Auto) 0.4 x10^3/uL (0.0-1.1) Eosinophils # (Auto) 0.1 x10^3/uL (0.0-0.7) Basophils # (Auto) 0.0 x10^3/uL (0.0-0.2) Prothrombin Time 13.2 SEC (11.7-14.0) Prothrombin Time INR 1.0 (0.8-1.1) Sodium Level 136 mmol/L (136-145) Potassium Level 3.6 mmol/L (3.5-5.1) Chloride Level 97 mmol/L (98-107) L Carbon Dioxide Level 27 mmol/L (21-32) Anion Gap 12 (6-14) Blood Urea Nitrogen 16 mg/dL (7-20) Creatinine 1.7 mg/dL (0.6-1.0) H Estimated GFR (Cockcroft-Gault) 28.5 BUN/Creatinine Ratio 9 (6-20) Glucose Level 171 mg/dL (70-99) H Calcium Level 9.4 mg/dL (8.5-10.1) Magnesium Level 1.9 mg/dL (1.8-2.4) Total Bilirubin 0.6 mg/dL (0.2-1.0) Aspartate Amino Transferase (AST) 29 U/L (15-37) Alanine Aminotransferase (ALT) 21 U/L (14-59) Alkaline Phosphatase 86 U/L (46-116) Creatine Kinase 143 U/L (26-192) Troponin I Quantitative < 0.017 ng/mL (0.000-0.055) SG-Nvd-E-Type Natriuretic Peptide 1636 pg/mL (0-449) H Total Protein 7.9 g/dL (6.4-8.2) Albumin 3.7 g/dL (3.4-5.0) Albumin/Globulin Ratio 0.9 (1.0-1.7) L Urine Collection Type U cath Urine Color Yellow Urine Clarity Clear Urine pH 6.0 Urine Specific [place] 1.015 Urine Protein Negative mg/dL (NEG-TRACE) Urine Glucose (UA) Negative mg/dL (NEG) Urine Ketones (Stick) Negative mg/dL (NEG) Urine Blood Negative (NEG) Urine Nitrite Negative (NEG) Urine Bilirubin Negative (NEG) Urine Urobilinogen Dipstick 0.2 mg/dL (0.2 mg/dL) Urine Leukocyte Esterase Negative (NEG) Urine RBC 1-2 /HPF (0-2) Urine WBC 1-4 /HPF (0-4) Urine Squamous Epithelial Cells Few /LPF Urine Bacteria Few /HPF (0-FEW) Urine Mucus Slight /LPF Lactic Acid Level 2.2 mmol/L (0.4-2.0) H Laboratory Tests 03/12/18 10:30 Laboratory Tests 03/12/18 10:30 EKG EKG EKG interpreted by me. EKG at 1102 showed normal sinus rhythm at rate of 64, left ugarte axis, left bundle branch block, no acute ST and T-wave abnormalities. Radiology/Procedures Radiology/Procedures [address] [address] IMAGING REPORT Signed PATIENT: SYBIL AUGUSTINE ACCOUNT: [id number] : 1930 LOCATION: ER AGE: 87 SEX: F EXAM STATUS: REG ER ORD. PHYSICIAN: REYES GARZA MD REASON: chest pain and weakness PROCEDURE: PORTABLE CHEST 1V Indication:PT STATES HAVING LEFT SIDED CHEST PAIN. TECHNIQUE:Portable AP chest X-ray COMPARISON:07/27/2017 FINDINGS: Heart is normal in size. Stable position of dual-lead cardiac pacer with leads projecting over the heart. Lungs are clear. No pneumothorax or pleural effusion. Visualized bony thorax is within normal limits. No acute pulmonary process. Electronically signed by: Brian Gallegos DO (03/12/2018 11:06 AM) [id number] DICTATED and SIGNED BY: BRIAN GALLEGOS DO DATE: 03/12/[address] [address] IMAGING REPORT Signed PATIENT: SYBIL AUGUSTINE ACCOUNT: [id number] : 1930 LOCATION: ER AGE: 87 SEX: F EXAM STATUS: REG ER ORD. PHYSICIAN: REYES GARZA MD REASON: chest pain and weakness and headache PROCEDURE: CT HEAD WO CONTRAST PQRS Compliance statement: One or more of the following individualized dose reduction techniques were utilized for this examination: 1. Automated exposure control. 2. Adjustment of the mA and/or kV according to patient size. 3. Use of iterative reconstruction technique. Indication:chest pain and weakness and headache
previous TECHNIQUE: CT head without IV contrast COMPARISON:02/13/2018 FINDINGS: No pathologic extra-axial or intra-axial fluid collection. Mild diffuse cerebral atrophy. The ventricles and basal cisterns are within normal limits. Confluent moderate periventricular and deep white matter low-attenuation is seen. No acute intracranial bleed. No focal loss of lindsay-white differentiation. Orbits are within normal limits. No suspicious calvarial lesion. Visualized paranasal sinuses and mastoid air cells are clear. IMPRESSION: 1. No acute intracranial process on this noncontrast CT. If concern for acute ischemic stroke is high, please consider MRI brain. 2. Moderate white matter changes, nonspecific but may be secondary to chronic microvascular ischemic disease. Electronically signed by: Brian Gallegos DO (03/12/2018 11:22 AM) [id number] DICTATED and SIGNED BY: BRIAN GALLEGOS DO DATE: 03/12/18 1119 Course & Med Decision Making Course & Med Decision Making Pertinent Labs and Imaging studies reviewed. (See chart for details) Evaluation of patient in ER showed 87-year-old patient with a fall 4 weeks ago and continued to have headache and nausea and photophobia. Patient unremarkable CT head and labs and EKG and UA and vital signs. I offered patient hospitalization for rehabilitation placement. Patient states she had 24 hours caregiver at home and doesn't want to go to rehabilitation. Patient advised to follow-up with her primary care physician for possible home health care and physical therapist for helping for her symptoms and referral to concussion specialist. Dragon Disclaimer Dragon Disclaimer This electronic medical record was generated, in whole or in part, using a voice recognition dictation system. Departure Departure Impression: Primary Impression: Concussion Additional Impressions: Fall at home Generalized weakness Nausea Headache Photophobia of both eyes Disposition: HOME, SELF-CARE (at 1220) Condition: STABLE Referrals: KARAN KIMBLE MD (PCP) Patient Instructions: Concussion and Brain Injury, Fall Prevention and Home Safety, Nausea, Adult Additional Instructions: Drink plenty of liquids Follow-up with your primary care physician in 2-3 days for providing home physical therapist Return to ER if not getting better Scripts Ondansetron Hcl (ZOFRAN) 4 Mg Tablet 4 MG PO PRN TID PRN for NAUSEA, #15 nausea/vomiting Prov: REYES GARZA MD 03/12/18 Problem Qualifiers REYES GARZA MD Mar 12, 2018 12:25
--- NOTE | 2018-03-12 13:56 | EKG ---
[facility] [address] [place] [address] Test Date: 2018-03-12 Test Time: 11:02:50 Pat Name: SYBIL AUGUSTINE Department: Room: Gender: F Electronic Operator: : 1930 Requested By: REYES GARZA Order Number: [id number] Reading MD: Iftikhar Cruz MD Measurements Intervals [place] Rate: 63 P: -90 CT: 180 QRS: -29 QRSD: 126 T: 128 QT: 460 QTc: 474 Interpretive Statements SINUS RHYTHM LEFTWARD AXIS LEFT BUNDLE BRANCH BLOCK Electronically Signed On 03-13-2018 10:40:46 [employer] by Iftikhar Cruz MD
[2018-03-13] MEDS ORDERED: BISA-42 PO (04:35)
[2018-03-13] MEDS ORDERED: CYCL10TA2 PO (04:35)
[2018-03-13] MEDS ORDERED: LOSA100T14 PO (04:35)
[2018-03-13] MEDS ORDERED: OMEP20CA10 PO (04:35)
[2018-03-13] MEDS ORDERED: SERT50TA PO (04:35)
[2018-03-13] MEDS ORDERED: CARV25TA2 PO (04:35)
[2018-03-13] MEDS ORDERED: MELA3TAB2 PO (04:35)
[2018-03-13] MEDS ORDERED: lidocaine patch 5% (04:42)
[2018-03-13] MEDS ORDERED: ALPR0.254 PO (10:06)
[2018-03-13] MEDS ORDERED: ACET325T9 PO (10:09)
[2018-03-13] MEDS ORDERED: ZOLP5TAB PO (10:09)
[2018-03-13] MEDS ORDERED: HYDR-2761 PO (10:09)
[2018-03-13] MEDS ORDERED: FENT1PAT13 TD (10:09)
[2018-03-13] MEDS ORDERED: IPRA3AMP29 NEB (10:14)
[2018-03-14] MEDS ORDERED: PREG50CA PO (10:42)
[2018-06-04] MEDS ORDERED: LIDO700A21 TP (14:49)
[2018-06-07] MEDS ORDERED: PRED20TA PO (13:17)
[2018-06-07] MEDS ORDERED: AMOX1TAB11 PO (13:17)
[2018-06-07] MEDS ORDERED: ASPI-612 PO (13:17)
== END 2018-03-12 12:45 | disposition home or self-care (01) ==
LOC: ER 10:07
DX: S06.0X9A Concussion with loss of consciousness of unspecified duration, initial encounter (principal); R51 Headache; R53.1 Weakness; H53.143 Visual discomfort, bilateral; R11.0 Nausea; J44.9 Chronic obstructive pulmonary disease, unspecified; K21.9 Gastro-esophageal reflux disease without esophagitis; E11.40 Type 2 diabetes mellitus with diabetic neuropathy, unspecified; I11.0 Hypertensive heart disease with heart failure; I50.9 Heart failure, unspecified; I25.10 Atherosclerotic heart disease of native coronary artery without angina pectoris; Z95.0 Presence of cardiac pacemaker; Z91.041 Radiographic dye allergy status; W06.XXXA Fall from bed, initial encounter; Y93.89 Activity, other specified; Y92.89 Other specified places as the place of occurrence of the external cause; Y99.8 Other external cause status
CPT/HCPCS: 36415; 70450; 71045; 80053; 81001; 82550; 83605; 83735; 83880; 84484; 85025; 85610; 93005; 99284-25

== ENCOUNTER 2018-03-12 23:48 | Inpatient (IN) | payer MEDICARE ==
[~2018-03-12] VITALS: Ht 152.4 cm; Wt 69.9 kg
[~2018-03-12 23:48] MED LIST changes: +ONDA4TAB7 PO
[2018-03-13] VITALS (17 sets, daily range): BP systolic 94–162; BP diastolic 39–94
--- NOTE | 2018-03-13 00:34 | PHYS DOC ---
Past Medical History Past Medical History: Arthritis, CAD, CHF, Constipation, COPD, Depression, Diabetes-Type II, Fibromyalgia, GERD, Hypertension, Pneumonia, UTI, Other Additional Past Medical Histor: NEUROPATHY Past Medical History Limited due to patient's altered mental status Past Surgical History: Appendectomy, Cholecystectomy, Hysterectomy, Pacemaker, Other Additional Past Surgical Histo: NECK/BACK,HIP,EYE,CARPAL TUNNEL, PACEMAKER Past Surgical History Limited due to patient's altered mental status Alcohol Use: None Drug Use: None Social History Limited due to patient's altered mental status Adult General Chief Complaint Chief Complaint: OVERDOSE HPI HPI Patient is a 87 year old female brought in by EMS for concern for possible opiate overdose. History limited secondary to severely altered mental status. Per EMS report patient was found unresponsive on the toilet by caregivers at her home. Daily medications include a fentanyl patch and hydrocodone which "are meds she's been taking for years" according to caregiver. Caregiver denies any extra or increased dose this evening. Caregiver also reports patient received Ambien this evening. The fentanyl patch was removed by EMS and she became responsive following one dose of Narcan while in transport but remained hypotensive. EMS reports systolic blood pressure down to 55 mmHg. On arrival patient was obtunded. Not able to speak but can follow some simple commands. Of note patient was seen here in the ED earlier today for persistent headache, nausea, photophobia since suffering a fall 4 weeks ago. [facility] review says she had an accidental fall from her bed that was 3 feet high on 02/13/[address] head and X-rays. Her CT head, labs, EKG, and UA from today were unremarkable. Acute rehab was offered but patient refused as she has 24 hour caregiver at home. Review of Systems Review of Systems Not able to obtain due to altered mental status Current Medications Current Medications Current Medications Medications (Trade) Dose Ordered Sig/Lindsey Start Time Stop Time Status Last Admin Dose Admin Naloxone HCl (Narcan) 1 mg 1X ONCE 03/13/18 01:00 03/13/18 01:01 DC 03/13/18 01:17 1 MG Allergies Allergies Allergies Coded Allergies Type Severity Reaction Last Updated Verified Iodinated Contrast- Oral and IV Dye Allergy Intermediate Itching 07/31/17 Yes I S O L A T I O N *CONTACT* Allergy Unknown 07/31/17 Yes Physical Exam Physical Exam Constitutional: obtunded, elderly[] HENT: bilateral infraorbital ecchymosis, no epistaxis noted Eyes: 2mm pupils bilaterally, nonreactive, conjunctiva normal, no discharge. [] Neck: supple, no stridor. [] Cardiovascular: Heart rate regular rhythm, no murmur [] Lungs & Thorax: Bilateral breath sounds clear to auscultation, no respiratory distress Abdomen: soft, no tenderness Skin: cool, dry, no rash, ecchymosis to bilateral face as above Extremities: no edema, moves all extremities Neurologic: GCS: 10, Eye opening response to speech, incomprehensible sounds, moves to localized pain, ] Current Patient Data Vital Signs Vital Signs Date Time Temp Pulse Resp B/P (MAP) Pulse Ox O2 Delivery O2 Flow Rate FiO2 03/13/18 01:31 84 18 148/71 (96) 100 Nasal Cannula 2.0 03/12/18 23:48 97.5 97.5 Lab Values Laboratory Tests Test 03/12/18 00:30 03/13/18 01:10 Urine Collection Type U cath Urine Color Yellow Urine Clarity Clear Urine pH 6.0 Urine Specific [place] 1.020 Urine Protein 30 mg/dL (NEG-TRACE) Urine Glucose (UA) Negative mg/dL (NEG) Urine Ketones (Stick) Negative mg/dL (NEG) Urine Blood Large (NEG) Urine Nitrite Negative (NEG) Urine Bilirubin Negative (NEG) Urine Urobilinogen Dipstick 1.0 mg/dL (0.2 mg/dL) Urine Leukocyte Esterase Small (NEG) Urine RBC 20-40 /HPF (0-2) Urine WBC 1-4 /HPF (0-4) Urine Squamous Epithelial Cells Few /LPF Urine Amorphous Sediment Present /HPF Urine Bacteria Mod /HPF (0-FEW) Urine Hyaline Casts Few /HPF Urine Mucus Mod /LPF Urine Opiates Screen Pos (NEG) Urine Methadone Screen Neg (NEG) Urine Barbiturates Neg (NEG) Urine Phencyclidine Screen Neg (NEG) Urine Amphetamine/Methamphetamine Neg (NEG) Urine Benzodiazepines Screen Pos (NEG) Urine Cocaine Screen Neg (NEG) Urine Cannabinoids Screen Neg (NEG) Urine Ethyl Alcohol Neg (NEG) White Blood Count 7.0 x10^3/uL (4.0-11.0) Red Blood Count 4.77 x10^6/uL (3.50-5.40) Hemoglobin 13.6 g/dL (12.0-15.5) Hematocrit 42.4 % (36.0-47.0) Mean Corpuscular Volume 89 fL (79-100) Mean Corpuscular Hemoglobin 29 pg (25-35) Mean Corpuscular Hemoglobin Concent 32 g/dL (31-37) Red Cell Distribution Width 14.7 % (11.5-14.5) H Platelet Count 178 x10^3/uL (140-400) Neutrophils (%) (Auto) 74 % (31-73) H Lymphocytes (%) (Auto) 18 % (24-48) L Monocytes (%) (Auto) 6 % (0-9) Eosinophils (%) (Auto) 2 % (0-3) Basophils (%) (Auto) 0 % (0-3) Neutrophils # (Auto) 5.2 x10^3uL (1.8-7.7) Lymphocytes # (Auto) 1.2 x10^3/uL (1.0-4.8) Monocytes # (Auto) 0.4 x10^3/uL (0.0-1.1) Eosinophils # (Auto) 0.1 x10^3/uL (0.0-0.7) Basophils # (Auto) 0.0 x10^3/uL (0.0-0.2) Prothrombin Time 13.4 SEC (11.7-14.0) Prothrombin Time INR 1.1 (0.8-1.1) PTT 26 SEC (24-38) Sodium Level 138 mmol/L (136-145) Potassium Level 3.6 mmol/L (3.5-5.1) Chloride Level 97 mmol/L (98-107) L Carbon Dioxide Level 31 mmol/L (21-32) Anion Gap 10 (6-14) Blood Urea Nitrogen 16 mg/dL (7-20) Creatinine 1.8 mg/dL (0.6-1.0) H Estimated GFR (Cockcroft-Gault) 26.7 BUN/Creatinine Ratio 9 (6-20) Glucose Level 136 mg/dL (70-99) H Lactic Acid Level 2.0 mmol/L (0.4-2.0) Calcium Level 9.3 mg/dL (8.5-10.1) Magnesium Level 1.9 mg/dL (1.8-2.4) Total Bilirubin 0.6 mg/dL (0.2-1.0) Aspartate Amino Transferase (AST) 25 U/L (15-37) Alanine Aminotransferase (ALT) 19 U/L (14-59) Alkaline Phosphatase 78 U/L (46-116) Ammonia < 10 mcmol/L (11-34) L Creatine Kinase 177 U/L (26-192) Creatine Kinase MB (Mass) 2.4 ng/mL (0.0-3.6) Creatine Kinase MB Relative Index 1.4 % (0-4) Troponin I Quantitative 0.027 ng/mL (0.000-0.055) Total Protein 7.4 g/dL (6.4-8.2) Albumin 3.5 g/dL (3.4-5.0) Albumin/Globulin Ratio 0.9 (1.0-1.7) L Ethyl Alcohol Level < 10 mg/dL (0-10) Laboratory Tests 03/13/18 01:10 Laboratory Tests 03/13/18 01:10 EKG EKG 03/12/18 at 23:57:50[] Normal sinus rhythm, LBBB, unchanged from previous EKG from 07/27/17 Radiology/Procedures Radiology/Procedures Portable Chest Xray (preliminary interpretation by ED physician): mild vascular congestion vs chronic fibrosis, no focal opacity PROCEDURE: CT HEAD AND CERVICAL SPINE WO EXAM: 1. CT HEAD WITHOUT CONTRAST. 2. CT CERVICAL SPINE WITHOUT CONTRAST. HISTORY: Altered mental status. Unresponsive, fall. TECHNIQUE: Computed tomography of the head and cervical spine was performed without intravenous contrast. COMPARISON: 03/12/2018. 02/13/2018. FINDINGS: There are limitations from motion artifact on some series. The examination remains diagnostic for the following. There is no intracranial hemorrhage. Hypoattenuation within the white matter indicates moderate chronic microangiopathic change. Prominence of the lateral ventricles and hemispheric sulci indicates mild to moderate atrophy. The visualized paranasal sinuses appear clear. There are changes of bilateral cataract surgery. The temporal bones are unremarkable. The calvarium reveals no suspicious lesions. Reversal of the normal lordosis is likely positional. There is 2 mm anterolisthesis at C4-5. There is moderate osteoarthritis at C1-2 with bulky pannus posteriorly. This measures up to 12 mm anteroposteriorly and results in moderate to severe central stenosis at the craniocervical junction. No fractures are identified. Degenerative disc disease is moderate to severe from C3 through C7 and within the upper thoracic spine. There is no prevertebral soft tissue swelling. At C2-3, facet osteoarthritis is severe on the right and mild on the left. Uncovertebral osteoarthritis is moderate bilaterally. There is a small posterior disc-osteophyte complex. Central canal stenosis appears mild. Neural foraminal stenosis is moderate to severe bilaterally. At C3-4, there is a small to moderate posterior disc bulge. Central canal stenosis appears mild to moderate. Uncovertebral osteoarthritis is moderate bilaterally. Neural foraminal stenosis is moderate to severe bilaterally. At C4-5, a moderate to large posterior disc-osteophyte complex and ossification of the ligamentum flavum on the left result in severe central canal stenosis. The cord is flattened with central canal diameter approximately 3 mm anteroposteriorly. Facet osteoarthritis is severe on the right. Uncovertebral osteoarthritis is moderate to severe bilaterally. Neural foraminal stenosis is moderate on the left and moderate to severe on the right. At C5-6, there is a small posterior disc bulge. Uncovertebral osteoarthritis is mild bilaterally. Neural foraminal stenosis is moderate on the right greater than left. Central canal stenosis appears mild. At C6-7, there is a moderate to large posterior disc-osteophyte complex. Central canal stenosis is moderate to severe. Uncovertebral osteoarthritis is severe bilaterally. Neural foraminal stenosis is moderate to severe bilaterally. Pacemaker leads are partially visualized. The proximal esophagus is mildly distended with debris. Carotid atherosclerotic calcifications are noted. IMPRESSION: 1. No acute intracranial findings. Moderate chronic microangiopathic white matter change and mild to moderate atrophy for patient age. 2. Motion artifact limits sensitivity for cervical fractures. None are seen. 3. 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 4. Ligamentum flavum hypertrophy and a posterior disc-osteophyte complex at C4-5 resulting in severe central canal stenosis with cord flattening and minimal anteroposterior central canal diameter 3 mm. 5. Additional central canal stenosis is moderate to severe at C6-7 and mild to moderate elsewhere. MRI could further assess stenosis if there is persistent concern. 6. Multifocal moderate to severe neural foraminal stenosis as above. *One or more of the following individualized dose reduction techniques were utilized for this examination: 1. Automated exposure control. 2. Adjustment of the mA and/or kV according to patient size. 3. Use of iterative reconstruction technique. Electronically signed by: Lucila López MD (03/13/2018 1:39 AM) [facility] Course & Med Decision Making Course & Med Decision Making Pertinent Labs and Imaging studies reviewed. (See chart for details) 87 year old female who presented with concern for opiate overdose. Patient has 24 hour caregiver at home responsible for her medication adherence and denies any change in dose or frequency this evening. She received one dose on Narcan while in transport and required an additional dose once she was here with improvement in her mentation. There were no significant findings on chest xray, no intracranial abnormalities on head CT. Cervical spine CT revealed degenerative changes and spinal stenosis. Also no significant laboratory abnormalities including electrolytes, ammonia, and alcohol level. Given her response to Narcan altered mental status likely due to her medications. Of note she was seen earlier today in the ED for persistent headache following a fall she suffered several weeks back. Her work up then was also unrevealing and she was discharged with recommendation of close follow up with her PCP. Patient will be admitted for further observation as she may require additional dose of Narcan. Patient requiring admission for further evaluation and treatment. Discussed with Dr. Castelan (PCP) who is in agreement with admission. Discussed findings and plan with patient and family, who acknowledge understanding and agreement. Dragon Disclaimer Dragon Disclaimer This electronic medical record was generated, in whole or in part, using a voice recognition dictation system. Departure Departure Impression: Primary Impression: Altered mental status Additional Impressions: Opioid overdose Hx of hypotension Disposition: ADMITTED INPATIENT Admitting Physician: Esau Castelan Condition: GUARDED Referrals: ESAU CASTELAN MD (PCP) Critical Care Time Critical care time was 30 minutes which includes time at bedside, spent in discussion of patient's care with specialists and/or family members, with interpretation of laboratory and/or radiological studies and is exclusive of procedures. Problem Qualifiers Primary Impression: Altered mental status Altered mental status type: unspecified Qualified Codes: R41.82 - Altered mental status, unspecified Additional Impressions: Opioid overdose Encounter type: initial encounter Injury intent: accidental or unintentional Qualified Codes: T40.2X1A - Poisoning by other opioids, accidental (unintentional), initial encounter ESAU BRITT DO Mar 13, 2018 00:34
[2018-03-13 00:45] LABS: BILIRUBIN,URINE NEGATIVE (NEG); CLARITY,URINE CLEAR; COLOR,URINE YELLOW; NITRITE,URINE NEGATIVE (NEG); PROTEIN,URINE 30 mg/dL (NEG-TRACE)
[2018-03-13 00:50] LABS: BARBITURATES NEG (NEG); BENZODIAZEPINES POS (NEG); CANNABINOIDS NEG (NEG); COCAINE NEG (NEG); METHADONE NEG (NEG); OPIATES POS (NEG); PHENCYCLIDINE NEG (NEG)
[2018-03-13 00:56] LABS: AMPHETAMINE/METHAMPHETAMINE NEG (NEG)
[2018-03-13] MEDS ORDERED: NALOXONE 2 MG/2 ML DISP.SYRIN. IV ONE (01:00)
[2018-03-13 01:13] LABS: BACTERIA,URINE MOD /HPF (0-FEW); RBC,URINE 20-40 /HPF (0-2)
[2018-03-13 01:14] LABS: AMORPHOUS SEDIMENT,UR PRESENT /HPF; HYALINE CASTS, URINE FEW /HPF; SQUAMOUS EPITHELIAL CELL,UR FEW /LPF
[2018-03-13 01:25] LABS: BASO % 0 % (0-3); EOS # 0.1 x10^3/uL (0.0-0.7); EOS % 2 % (0-3); HEMATOCRIT 42.4 % (36.0-47.0); HEMOGLOBIN 13.6 g/dL (12.0-15.5); LYMPH # 1.2 x10^3/uL (1.0-4.8); LYMPH % 18 % (24-48); MEAN CORPUSCULAR HEMOGLOBIN 29 pg (25-35); MEAN CORPUSCULAR HGB CONC 32 g/dL (31-37); MEAN CORPUSCULAR VOLUME 89 fL (79-100); MONO # 0.4 x10^3/uL (0.0-1.1); MONO % 6 % (0-9); NEUT # 5.2 x10^3uL (1.8-7.7); NEUT % 74 % (31-73); PLATELET COUNT 178 x10^3/uL (140-400); RED BLOOD COUNT 4.77 x10^6/uL (3.50-5.40); RED CELL DISTRIBUTION WIDTH 14.7 % (11.5-14.5)
[2018-03-13 01:36] LABS: CALCIUM 9.3 mg/dL (8.5-10.1); CREATININE 1.8 mg/dL (0.6-1.0); GFR 26.7; POTASSIUM 3.6 mmol/L (3.5-5.1)
[2018-03-13 01:38] LABS: PROTHROMBIN TIME PATIENT 13.4 SEC (11.7-14.0)
[2018-03-13 01:42] LABS: ALBUMIN 3.5 g/dL (3.4-5.0); ALBUMIN/GLOBULIN RATIO 0.9 (1.0-1.7); MAGNESIUM 1.9 mg/dL (1.8-2.4); TOTAL BILIRUBIN 0.6 mg/dL (0.2-1.0); TOTAL PROTEIN 7.4 g/dL (6.4-8.2)
--- NOTE | 2018-03-13 01:44 | RAD ---
EXAM: 1. CT HEAD WITHOUT CONTRAST. 2. CT CERVICAL SPINE WITHOUT CONTRAST. HISTORY: Altered mental status. Unresponsive, fall. TECHNIQUE: Computed tomography of the head and cervical spine was performed without intravenous contrast. COMPARISON: 03/12/2018. 02/13/2018. FINDINGS: There are limitations from motion artifact on some series. The examination remains diagnostic for the following. There is no intracranial hemorrhage. Hypoattenuation within the white matter indicates moderate chronic microangiopathic change. Prominence of the lateral ventricles and hemispheric sulci indicates mild to moderate atrophy. The visualized paranasal sinuses appear clear. There are changes of bilateral cataract surgery. The temporal bones are unremarkable. The calvarium reveals no suspicious lesions. Reversal of the normal lordosis is likely positional. There is 2 mm anterolisthesis at C4-5. There is moderate osteoarthritis at C1-2 with bulky pannus posteriorly. This measures up to 12 mm anteroposteriorly and results in moderate to severe central stenosis at the craniocervical junction. No fractures are identified. Degenerative disc disease is moderate to severe from C3 through C7 and within the upper thoracic spine. There is no prevertebral soft tissue swelling. At C2-3, facet osteoarthritis is severe on the right and mild on the left. Uncovertebral osteoarthritis is moderate bilaterally. There is a small posterior disc-osteophyte complex. Central canal stenosis appears mild. Neural foraminal stenosis is moderate to severe bilaterally. At C3-4, there is a small to moderate posterior disc bulge. Central canal stenosis appears mild to moderate. Uncovertebral osteoarthritis is moderate bilaterally. Neural foraminal stenosis is moderate to severe bilaterally. At C4-5, a moderate to large posterior disc-osteophyte complex and ossification of the ligamentum flavum on the left result in severe central canal stenosis. The cord is flattened with central canal diameter approximately 3 mm anteroposteriorly. Facet osteoarthritis is severe on the right. Uncovertebral osteoarthritis is moderate to severe bilaterally. Neural foraminal stenosis is moderate on the left and moderate to severe on the right. At C5-6, there is a small posterior disc bulge. Uncovertebral osteoarthritis is mild bilaterally. Neural foraminal stenosis is moderate on the right greater than left. Central canal stenosis appears mild. At C6-7, there is a moderate to large posterior disc-osteophyte complex. Central canal stenosis is moderate to severe. Uncovertebral osteoarthritis is severe bilaterally. Neural foraminal stenosis is moderate to severe bilaterally. Pacemaker leads are partially visualized. The proximal esophagus is mildly distended with debris. Carotid atherosclerotic calcifications are noted. IMPRESSION: 1. No acute intracranial findings. Moderate chronic microangiopathic white matter change and mild to moderate atrophy for patient age. 2. Motion artifact limits sensitivity for cervical fractures. None are seen. 3. 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 4. Ligamentum flavum hypertrophy and a posterior disc-osteophyte complex at C4-5 resulting in severe central canal stenosis with cord flattening and minimal anteroposterior central canal diameter 3 mm. 5. Additional central canal stenosis is moderate to severe at C6-7 and mild to moderate elsewhere. MRI could further assess stenosis if there is persistent concern. 6. Multifocal moderate to severe neural foraminal stenosis as above. *One or more of the following individualized dose reduction techniques were utilized for this examination: 1. Automated exposure control. 2. Adjustment of the mA and/or kV according to patient size. 3. Use of iterative reconstruction technique. Electronically signed by: Lucila López MD (03/13/2018 1:39 AM) [facility]
[2018-03-13] MEDS ORDERED: ONDANSETRON PF 4 MG/2 ML VIAL. IV PRN ×2 (02:00→10:15)
[2018-03-13] MEDS ORDERED: DEXTROSE 50% 25 GM / 50ML DISP.SYRIN. IV PRN (02:00)
[2018-03-13] MEDS ORDERED: NALOXONE 2 MG/2 ML DISP.SYRIN. IV PRN (02:00)
[2018-03-13] MEDS ORDERED: SERT50TA PO (04:35)
[2018-03-13] MEDS ORDERED: MELA3TAB2 PO (04:35)
[2018-03-13] MEDS ORDERED: CYCL10TA2 PO (04:35)
[2018-03-13] MEDS ORDERED: CARV25TA2 PO (04:35)
[2018-03-13] MEDS ORDERED: BISA-42 PO (04:35)
[2018-03-13] MEDS ORDERED: LOSA100T14 PO (04:35)
[2018-03-13] MEDS ORDERED: OMEP20CA10 PO (04:35)
[2018-03-13] MEDS ORDERED: lidocaine patch 5% (04:42)
[2018-03-13] MEDS ORDERED: BISACODYL 5 MG TABLET.DR. PO PRN (05:00)
--- NOTE | 2018-03-13 05:06 | NUR ---
Patient admitted to room 107 from the ER at 0235. Patient moved from ER cart to bed x 4 person assist. Heart monitor in place. SR/Apaced noted. Patient alert and answers questions appropriately. 2LNC on. Patient denies any pain or discomfort at this time. Call lightis within reach. Son is at bedside. Will monitor.
[2018-03-13] MEDS ORDERED: NON FORMULARY ITEM (Albuterol Sulfate (Albuterol Sulfate Conc Neb Soln) 1 VIAL) NEB SCH (06:00)
--- NOTE | 2018-03-13 06:39 | EKG ---
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
[2018-03-13] MEDS: INSULIN LISPRO 300 UNITS/3 ML INSULN.PEN. SQ SCH ×3 (07:58→17:00)
[2018-03-13] MEDS: PANTOPRAZOLE 40 MG TABLET.DR. PO SCH (07:59)
[2018-03-13] MEDS: CARVEDILOL 12.5 MG TABLET. PO SCH ×2 (08:00→17:43)
[2018-03-13] MEDS ORDERED: ALBUTEROL SULFATE 2.5 MG/3 ML NEBU. NEB SCH (08:00)
--- NOTE | 2018-03-13 08:00 | RAD ---
Examination: PORTABLE CHEST 1V History: ams;pt unresponsive Comparison/Correlation: 07/26/2017 CT chest without contrast, 03/12/2018 portable chest x-ray exam Findings: Supine portable frontal view chest was obtained. Dual-lead left-sided pacemaker is present. Right upper quadrant surgical clips are present. Heart size normal. No pneumothorax with the patient supine limiting assessment. Old left lower rib fractures are present. Pulmonary vasculature are within normal limits. Marked mitral annular calcification. Impression: No infiltrate. Electronically signed by: Walter Mckinney MD (03/13/2018 7:56 AM) [facility]
[2018-03-13] MEDS: BUDESONIDE 0.5 MG/2 ML NEBU. NEB SCH ×2 (08:31→20:46)
--- NOTE | 2018-03-13 08:40 | NUR ---
IP: Pt has had a hx of mrsa since 2007 with most recent + mrsa screen on 06/26/17. Pt to be in contact precautions until there are 2 negative screens 7 days apart and no open wounds.
[2018-03-13] MEDS ORDERED: CYCLOBENZAPRINE 10 MG TABLET. PO SCH (09:00)
[2018-03-13] MEDS ORDERED: PREGABALIN 75 MG CAPSULE PO SCH (09:00)
[2018-03-13] MEDS ORDERED: NON FORMULARY ITEM (Melatonin 10 MG) PO SCH (09:00)
[2018-03-13] MEDS ORDERED: NON FORMULARY ITEM (Fluticasone/Salmeterol (Advair 250-50 Diskus) 1 PUFF) IH SCH (09:00)
[2018-03-13] MEDS ORDERED: LOSARTAN POTASSIUM 50 MG TABLET. PO SCH (09:00)
[2018-03-13] MEDS: DOCUSATE SODIUM 100 MG CAPSULE. PO SCH ×2 (09:40→20:30)
[2018-03-13] MEDS: CHOLECALCIFEROL (VITAMIN D3) 1,000 UNIT TABLET PO SCH (09:40)
[2018-03-13] MEDS: SERTRALINE 50 MG TABLET. PO SCH (09:40)
[2018-03-13] MEDS: MULTIVITAMIN with MINERAL TABLET. PO SCH (09:40)
[2018-03-13] MEDS ORDERED: ALPR0.254 PO (10:06)
[2018-03-13] MEDS ORDERED: ACET325T9 PO (10:09)
[2018-03-13] MEDS ORDERED: HYDR-2761 PO (10:09)
[2018-03-13] MEDS ORDERED: ZOLP5TAB PO (10:09)
[2018-03-13] MEDS ORDERED: FENT1PAT13 TD (10:09)
[2018-03-13] MEDS ORDERED: IPRA3AMP29 NEB (10:14)
[2018-03-13] MEDS ORDERED: ACETAMINOPHEN 325 MG TABLET. PO PRN (10:15)
[2018-03-13] MEDS ORDERED: ZOLPIDEM 5 MG TABLET. PO PRN (10:15)
[2018-03-13] MEDS ORDERED: HYDROcodone/APAP 5/325MG 1 TAB TABLET PO PRN ×2 (10:15→11:15)
[2018-03-13] MEDS ORDERED: ALBUTEROL SULFATE 2.5 MG/3 ML NEBU. NEB PRN (11:00)
[2018-03-13] MEDS ORDERED: fentaNYL 12MCG/HR PATCH 1 PATCH PATCH.TD72 TD SCH (11:00)
--- NOTE | 2018-03-13 11:03 | PDOC ---
Provider Note Provider Note history and physical dictated [id number] KARAN KIMBLE MD Mar 13, 2018 11:03
[2018-03-13 11:07] LABS: CALCIUM 9.2 mg/dL (8.5-10.1); CREATININE 1.6 mg/dL (0.6-1.0); GFR 30.6; POTASSIUM 3.5 mmol/L (3.5-5.1)
[2018-03-13] MEDS ORDERED: PERFLUTREN PROTEIN-A MICROSPHR 0.22 MG/ML 3 ML VIAL. IV ONE (11:14)
--- NOTE | 2018-03-13 11:48 | HP ---
ADMIT DATE: 03/13/2018 LOCATION: Room 106. HISTORY OF PRESENT ILLNESS: The patient is an 87-year-old white female who lives at home with assistance, confined to a wheelchair, who has chronic debility and chronic low back pain and on chronic narcotics, who has a history of chronic diastolic congestive heart failure, diabetes mellitus type 2, hypertension, hyperlipidemia, chronic obstructive pulmonary disease, chronic hypoxic respiratory failure and diabetes mellitus type 2 with peripheral neuropathy, who apparently had a fall in 02/23/2018. She was having some headaches since that time and she went to the Emergency Room yesterday morning and a CAT scan of the head was unremarkable. She also had a CAT scan of cervical spine, which showed spinal stenosis, but no acute fracture and she was sent home. Then, last evening, she was sitting on the commode and was unresponsive. She got her usual Ambien last night as well as a hydrocodone prior to that and apparently EMT was by and gave her Narcan and she became more responsive. She was hypotensive and she when came into the Emergency Room her blood pressure was low at 55 systolic apparently in the field and then her blood pressures come off and in fact it has been on the high side since admission. CAT scan of the head and cervical spine as mentioned showed no acute abnormality, no subdural hematoma and she was admitted to the Intensive Care Unit. Urine drug screen was positive for benzodiazepine and opiates and she takes both of those at home. Her chest x-ray was unremarkable. She is admitted to the hospital for further evaluation and treatment. ALLERGIES AND INTOLERANCES: IV IODINE AND ORAL IODINE AND SHE ALSO HAS INTOLERANCES TO AMLODIPINE, ATORVASTATIN, CLONIDINE, DOXAZOSIN, FLUVASTATIN, LISINOPRIL, LOVASTATIN, NIACIN, NIFEDIPINE, AND CRESTOR. MEDICATIONS: Include Advair 250/50 mcg 1 puff b.i.d., albuterol nebulized treatments every 4 hours p.r.n., Xanax 0.25 mg at 5:00 p.m. and she takes 0.5 mg at bedtime, carvedilol 12.5 mg b.i.d., which was recently increased last week due to high blood pressure at home, Colace 100 mg b.i.d., Flexeril 10 mg b.i.d. p.r.n., fentanyl 25 mcg every 72 hours, furosemide 20 mg every day p.r.n., losartan 100 mg every day, Lyrica 75 mg b.i.d., melatonin 5 mg at bedtime, [place] 10/325 one tablet t.i.d. p.r.n., Nystatin powder b.i.d., omeprazole 20 mg b.i.d., Plaquenil 200 mg b.i.d., sertraline 50 mg every day, vitamin D at 1000 units every day, Ambien 10 mg at bedtime. PAST MEDICAL HISTORY: Significant for chronic diastolic congestive heart failure, chronic hypoxic respiratory failure, diabetes mellitus type 2, hypertension, hyperlipidemia, chronic obstructive pulmonary disease. She also has a history of debility and chronic low back pain. She also has a history of lumbar spondylosis, right ovarian cyst. She had a lumbar laminectomy in the past. She has fibromyalgia, gastroesophageal reflux disease, anemia. She had an esophageal stricture dilated, cataract extraction, right hip hemiarthroplasty for right hip fracture, last colonoscopy 04/2011 and she had a colon polypectomy, has a permanent pacemaker. SOCIAL HISTORY: She does not drink alcohol nor does she smoke cigarettes. She has 24-hour caregivers. FAMILY HISTORY: Remarkable for mother and father had brain cancer. Mother had congestive heart failure. REVIEW OF SYSTEMS: GENERAL: There has been no fever, chills or sweats in the last 3 days. CARDIOVASCULAR: No chest pain. PULMONARY: No cough or shortness of breath. GASTROINTESTINAL: She has not had a bowel movement a couple of days, but she has also had some nausea. ENDOCRINE: She has diabetes mellitus. NEUROLOGIC: Altered mental status as mentioned last night. The rest of systems reviewed are negative except as stated in history of present illness. PHYSICAL EXAMINATION: VITAL SIGNS: Temperature is 97.7 degrees, pulse 69, respiratory rate 15, blood pressure is 141/94, oxygen saturation 97% on room air. She was 100% on 2 liters per nasal cannula. HEENT: She has got esotropia involving the left eye. Mouth: Tongue is midline. NECK: There is no cervical lymphadenopathy or thyroid enlargement. HEART: Reveals an S1, S2. There is no S3 or murmur. LUNGS: Clear with decreased breath sounds. ABDOMEN: Obese and soft, nontender. EXTREMITIES: Lower extremities without edema. SKIN: No rashes. NEUROLOGIC: Revealed no focal weakness of the extremities or facial asymmetry and she is alert. LABORATORY DATA: Review of her laboratory test, the urine drug screen was positive for opiates and benzodiazepine, negative for alcohol. White count is 7, hemoglobin 13.6, platelet count 178,000 with 74 polys and 18 lymphocytes with INR of 1.1, PTT of 26. Sodium 138, potassium 3.6, chloride 97, total CO2 of 31, BUN of 16, creatinine 1.8, previous creatinine 1.0; blood sugar 136. Liver function tests normal. CPK 177. Troponin level is 0.027 and her albumin was 3.5. Urinalysis showed 1-4 white cells, 20-40 red blood cells. She did have a chest x-ray done, which showed no acute abnormality and no pneumothorax. She had old left rib fractures. Pulmonary vascularity was normal. She had a CAT scan of the head and cervical spine was done and basically had no acute abnormality. She does have a severe cervical spinal stenosis at C4-C5, moderate spinal stenosis at C6-C7. She did have an electrocardiogram done. ASSESSMENT: 1. Toxic encephalopathy, possibly from narcotics and the hypnotic and the tranquilizer. 2. Diabetes mellitus type 2 with peripheral neuropathy. 3. Hypertension. 4. Hyperlipidemia. 5. Chronic hypoxic respiratory failure. 6. Chronic obstructive pulmonary disease. 7. Hyperlipidemia. 8. Chronic diastolic congestive heart failure. 9. Debility. 10. 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 11. Cervical spinal stenosis. 12. Acute kidney injury. PLAN: At this time is to consult Dr. Nix for the acute kidney injury. We will get a renal ultrasound, discontinue losartan. Continue the carvedilol for hypertension. We will decrease the hydrocodone to 5/325 one tablet t.i.d. p.r.n. instead of 10 mg and will discontinue the Xanax at bedtime and just give her the Xanax 0.25 mg at 5:00 p.m., decrease the Ambien to 5 mg at bedtime p.r.n. and we will decrease the Lyrica to 50 mg b.i.d. with acute kidney injury and decrease the fentanyl patch to 12 mcg every 72 hours. She is going to need some narcotics as she has been on it for years and had tolerated well, but we will lower the doses. We will watch and see how she does. We will get a basic metabolic profile tomorrow. Continue with other current medications and she will be seen by Cardiology in consultation also. Obtain an echocardiogram, which she has not had one in the last 6 months and continue telemetry. KARAN KIMBLE MD DR: KATHY/ben JOB#: [id number] / [id number]
--- NOTE | 2018-03-13 11:55 | PDOC2 ---
CARDIAC CONSULT DATE OF CONSULT Date of Consult DATE: 03/13/18 TIME: 11:36 REASON FOR CONSULT Reason for Consult: syncope REFERRING PHYSICIAN Referring Physician: Flip SOURCE Source: Chart review, Patient HISTORY OF PRESENT ILLNESS HISTORY OF PRESENT ILLNESS This is a pleasant 87 yo female admitted for complains of passing out. Reports that she was sitting at the toilet just got transferred from by her plant tech. Apparently her WC was between her and the caregiver and she started getting dizzy with blurred vision then passed out. It was unclear how long she was unconscious but when EMS came her BP was 60/30. She took all her medications that night with ambien, lortab, fentanyl patch in place plus her BP meds. She said that she does not take anything for her DM. No palpitations at that time and no notation of seizure events. Reports that in 02/13/2018 she had a concussion apparently fell out of bed due to the rail failing to stay up when she moving to position herself and obtain a forehead laceration and ecchymoses around her orbital region which is almost gone. She has a PPM due to CSH and SSS. She was obtunded and was given narcan and her mentation slighlyt improved but her BP remained low during transport. Currently she is back to her usual mental state AOx3. No complains of pain, no CP, SOA. NO nausea or vomiting at that time. No prior CAD or CVA. PAST MEDICAL HISTORY Cardiovascular: CHF, HTN, Syncope, Hyperlipidemia, Other (SSS/CSH) Pulmonary: COPD, Pneumonia, Other (BOOP) CENTRAL NERVOUS SYSTEM: Periperal neuropathy GI: Constipation, GERD, Hemorrhoids Heme/Onc: Anemia NOS Psych: Anxiety Musculoskeletal: Osteoarthritis Rheumatologic: Fibromyalgia Infectious disease: No pertinent hx Renal/: UTI Endocrine: Diabetes (2) Dermatology: Other (right foot wound) PAST SURGICAL HISTORY Past Surgical History: Pacemaker, Total hip replacement (right), Other (colon polypectomy; lumbar laminectomy) FAMILY HISTORY Family History: Heart Disease SOCIAL HISTORY Smoke: No ALCOHOL: none Drugs: None Lives: Alone CURRENT MEDICATIONS CURRENT MEDICATIONS Current Medications Medications (Trade) Dose Ordered Sig/Lindsey Route PRN Reason Start Time Stop Time Status Last Admin Dose Admin Naloxone HCl (Narcan) 1 mg 1X ONCE IV 03/13/18 01:00 03/13/18 01:01 DC 03/13/18 01:17 Cyclobenzaprine HCl (Flexeril) 10 mg BID PO 03/13/18 09:00 03/13/18 10:53 DC 03/13/18 09:41 Docusate Sodium (Colace) 100 mg BID PO 03/13/18 09:00 03/13/18 09:40 Pregabalin (Lyrica) 75 mg BID PO 03/13/18 09:00 03/13/18 10:53 DC 03/13/18 09:40 Sertraline HCl (Zoloft) 50 mg DAILY PO 03/13/18 09:00 03/13/18 09:40 Carvedilol (Coreg) 12.5 mg BIDWMEALS PO 03/13/18 08:00 03/13/18 08:00 Vitamin D (Vitamin D3) 1,000 unit DAILY PO 03/13/18 09:00 03/13/18 09:40 Losartan Potassium (Cozaar) 100 mg DAILY PO 03/13/18 09:00 03/13/18 10:53 DC 03/13/18 09:40 Multivitamins (Thera M Plus) 1 tab DAILY PO 03/13/18 09:00 03/13/18 09:40 Pantoprazole Sodium (Protonix) 40 mg DAILYAC PO 03/13/18 07:30 03/13/18 07:59 Albuterol Sulfate (Ventolin Neb Soln) 2.5 mg RTQID [facility] 03/13/18 08:00 03/13/18 10:53 DC 03/13/18 08:31 Budesonide (Pulmicort) 0.5 mg RTBID [facility] 03/13/18 08:00 03/13/18 08:31 ALLERGIES ALLERGIES: Coded Allergies: Iodinated Contrast- Oral and IV Dye (Verified Allergy, Intermediate, Itching, 07/31/17) I S O L A T I O N *CONTACT* (Verified Allergy, Unknown, 07/31/17) mrsa screen + PHYSICAL EXAM General: Alert, Oriented X3, Cooperative, No acute distress HEENT: Mucous membr. moist/pink Lungs: Other Heart: Regular rate (Atrial paced ), Other (2/6 systolic murmur to LLS border) Abdomen: Soft, No tenderness Extremities: No cyanosis Skin: No breakdown, Other (almost gone inferorbital ecchymoses) Neuro: Normal speech, Sensation intact Psych/Mental Status: Mental status NL, Mood NL MUSCULOSKELETAL: Osteoarthritic changes both hands VITALS VITALS Vital Signs Date Time Temp Pulse Resp B/P (MAP) Pulse Ox O2 Delivery O2 Flow Rate FiO2 03/13/18 10:00 64 16 127/47 (73) 99 Nasal Cannula 2.0 03/13/18 08:00 97.7 97.7 LABS Lab: Laboratory Tests Test 03/13/18 01:10 03/13/18 05:05 03/13/18 07:45 03/13/18 07:58 White Blood Count 7.0 x10^3/uL (4.0-11.0) Red Blood Count 4.77 x10^6/uL (3.50-5.40) Hemoglobin 13.6 g/dL (12.0-15.5) Hematocrit 42.4 % (36.0-47.0) Mean Corpuscular Volume 89 fL (79-100) Mean Corpuscular Hemoglobin 29 pg (25-35) Mean Corpuscular Hemoglobin Concent 32 g/dL (31-37) Red Cell Distribution Width 14.7 % (11.5-14.5) Platelet Count 178 x10^3/uL (140-400) Neutrophils (%) (Auto) 74 % (31-73) Lymphocytes (%) (Auto) 18 % (24-48) Monocytes (%) (Auto) 6 % (0-9) Eosinophils (%) (Auto) 2 % (0-3) Basophils (%) (Auto) 0 % (0-3) Neutrophils # (Auto) 5.2 x10^3uL (1.8-7.7) Lymphocytes # (Auto) 1.2 x10^3/uL (1.0-4.8) Monocytes # (Auto) 0.4 x10^3/uL (0.0-1.1) Eosinophils # (Auto) 0.1 x10^3/uL (0.0-0.7) Basophils # (Auto) 0.0 x10^3/uL (0.0-0.2) Prothrombin Time 13.4 SEC (11.7-14.0) Prothromb Time International Ratio 1.1 (0.8-1.1) Activated Partial Thromboplast Time 26 SEC (24-38) Sodium Level 138 mmol/L (136-145) 136 mmol/L (136-145) Potassium Level 3.6 mmol/L (3.5-5.1) 3.5 mmol/L (3.5-5.1) Chloride Level 97 mmol/L (98-107) 100 mmol/L (98-107) Carbon Dioxide Level 31 mmol/L (21-32) 28 mmol/L (21-32) Anion Gap 10 (6-14) 8 (6-14) Blood Urea Nitrogen 16 mg/dL (7-20) 17 mg/dL (7-20) Creatinine 1.8 mg/dL (0.6-1.0) 1.6 mg/dL (0.6-1.0) Estimated GFR (Cockcroft-Gault) 26.7 30.6 BUN/Creatinine Ratio 9 (6-20) Glucose Level 136 mg/dL (70-99) 113 mg/dL (70-99) Lactic Acid Level 2.0 mmol/L (0.4-2.0) Calcium Level 9.3 mg/dL (8.5-10.1) 9.2 mg/dL (8.5-10.1) Magnesium Level 1.9 mg/dL (1.8-2.4) Total Bilirubin 0.6 mg/dL (0.2-1.0) Aspartate Amino Transf (AST/SGOT) 25 U/L (15-37) Alanine Aminotransferase (ALT/SGPT) 19 U/L (14-59) Alkaline Phosphatase 78 U/L (46-116) Ammonia < 10 mcmol/L (11-34) Creatine Kinase 177 U/L (26-192) Creatine Kinase MB (Mass) 2.4 ng/mL (0.0-3.6) Creatine Kinase MB Relative Index 1.4 % (0-4) Troponin I Quantitative 0.027 ng/mL (0.000-0.055) 0.033 ng/mL (0.000-0.055) 0.025 ng/mL (0.000-0.055) Total Protein 7.4 g/dL (6.4-8.2) Albumin 3.5 g/dL (3.4-5.0) Albumin/Globulin Ratio 0.9 (1.0-1.7) Ethyl Alcohol Level < 10 mg/dL (0-10) Glucose (Fingerstick) 88 mg/dL (70-99) ECHOCARDIOGRAM ECHOCARDIOGRAM <Conclusion> There is mild concentric left ventricular hypertrophy. The left ventricular systolic function is normal and the ejection fraction is within normal range. The Ejection Fraction is 60%. The left atrium size is normal. The right atrium size is normal. The aortic valve is not well visualized. Mitral annular calcification is severe. Doppler and Color-flow revealed trace mitral regurgitation. Doppler and Color Flow revealed trace to mild tricuspid regurgitation. The pulmonic valve is not well visualized. There is no evidence of significant pericardial effusion. DATE: 04/27/17 1650 ASSESSMENT/PLAN ASSESSMENT/PLAN 1. Syncope with nontraumatic fall: possibly from orthostasis secondary to polypharmacy, BP meds, benzo, and opioids. 2. Encephalopathy: likely med related. Currently resolved. 3. PPM insitu: due to SSS/CSH ([place]). Interrogation revelaed no associated arrhythmias with normal device function. Tele showed no arrhythmias. 4. HTN: controlled 5. DM2/HLP/DPN 6. 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 Severe Cervical stenosis 8. Traumatic mechanical fall with concussion: 02/13/2018 9. CKD3? Recommendations 1. TTE. Push fluids. 2. Will need adjustment to her medications particularly sleep meds and opioids. 3. Check for orthostasis 4. Restart BP regimen when BP is consitently adequate. 5. Follow up in office in 4 weeks. EMANUEL KELLEY APRN Mar 13, 2018 11:55
[2018-03-13] MEDS ORDERED: PERFLUTREN PROTEIN-A MICROSPHR 0.22 MG/ML 3 ML VIAL. IV PRN (12:00)
--- NOTE | 2018-03-13 12:37 | CARD ---
MR#: [id number] Date of Study: 03/13/2018 Ordering Physician: KARAN KIMBLE, Referring Physician: KARAN KIMBLE Tech: Ladonna Ross RDCS APPROVED REPORT EXAM: Two-dimensional and M-mode echocardiogram with Doppler and color Doppler. Other Information Quality : Fair Technically limited study due to body habitus. INDICATION Syncope Echo Enhancing Agent Agent/Amount Used: Optison 3mL Surgery/Intervention Pacemaker: 2D DIMENSIONS RVDd2.6 (2.9-3.5cm)Left Atrium(2D)4.0 (1.6-4.0cm) IVSd1.5 (0.7-1.1cm)Aortic Root(2D)2.6 (2.0-3.7cm) LVDd3.5 (3.9-5.9cm)LVOT Diameter2.0 (1.8-2.4cm) PWd1.4 (0.7-1.1cm)LVDs3.0 (2.5-4.0cm) FS (%) 27.0 %SV15.6 ml LVEF(%)55.0 (>50%) Aortic Valve AoV Peak Quique.178.8cm/sAoV VTI38.1cm AO Peak GR.12.8mmHgLVOT VTI 17.87cm AO Mean GR.7mmHgAVA (VTI)1.50cm2 Mitral Valve MV E Mjnvdnbp08.9cm/sMV E Peak Gr.5mmHg MV DECEL [id number] A Efrvsfvq410.8cm/s MV E Mean Gr.3mmHgE/A Ratio0.8 TDI Lateral E' P. V6.69cm/sMedial E' P. V4.31cm/s E/Lateral E'14.2E/Medial E'22.0 Tricuspid Valve TR P. [id number]/sRAP [id number] TR Peak Gr.44ihLmYXUO66pdCr Pulmonary Vein S1 Dwlywfzq61.2cm/sS2 Npuruwvb46.79cm/s D2 Awyowzqm93.8cm/s LEFT VENTRICLE The left ventricle is normal size. There is mild concentric left ventricular hypertrophy. The left ve ntricular systolic function is normal and the ejection fraction is within normal range. The Ejection Fraction is 55-60%. Apical motion consistent with pacemaker activation. Transmitral Doppler flow marysol zahira is Grade I-abnormal relaxation pattern. RIGHT VENTRICLE The right ventricle is normal size. There is normal right ventricular wall thickness. The right ventr icular systolic function is normal. There is a pacemaker in the RA/RV. ATRIA The left atrium is mildly dilated. The right atrium size is normal. The interatrial septum is intact with no evidence for an atrial septal defect or patent foramen ovale as noted on 2-D or Doppler imagi ng. AORTIC VALVE The aortic valve is calcified and displays decreased opening. Doppler and Color Flow revealed no sign ificant aortic regurgitation. There is no significant aortic valvular stenosis. MITRAL VALVE The mitral valve is calcified and displays decreased opening. Mitral annular calcification is severe. There is no evidence of mitral valve prolapse. There is no mitral valve stenosis. Doppler and Color- flow revealed trace to mild mitral regurgitation. TRICUSPID VALVE The tricuspid valve is normal in structure and function. Doppler and Color Flow revealed trace tricus pid regurgitation. There is moderate pulmonary hypertension. The PA pressure was estimated at 44 mmHg . There is no tricuspid valve stenosis. PULMONIC VALVE The pulmonic valve is not well visualized. Doppler and Color Flow revealed no pulmonic valvular regur gitation. There is no pulmonic valvular stenosis. GREAT VESSELS The aortic root is normal in size. The ascending aorta is normal in size. The IVC is normal in size a nd collapses >50% with inspiration. PERICARDIAL EFFUSION There is no evidence of significant pericardial effusion. Critical Notification Critical Value: No <Conclusion> The left ventricular systolic function is normal and the ejection fraction is within normal range. Th e Ejection Fraction is 55-60%. Apical motion consistent with pacemaker activation. There is a pacemaker in the RA/RV. Doppler and Color Flow revealed trace tricuspid regurgitation. There is moderate pulmonary hypertensi on. The PA pressure was estimated at 44 mmHg. Signed by : Iftikhar Cruz, Electronically Approved : 03/13/2018 12:35:49
--- NOTE | 2018-03-13 13:53 | PDOC2 ---
NEUROLOGY CONSULT Date of Admission Date of Admission DATE: 03/13/18 TIME: 13:50 Reason for Consult Reason for Consult: Syncope Referring Physician Referring Physician: Dr. Castelan Source Source: Caregiver (one of her private nurses), Chart review, Patient History of Present Illness History of Present Illness The patient is an 87-year-old right-handed female who fainted yesterday. She had a fall on February 13 striking her head and she was knocked out for a few moments. She was trying to get out of her bed and fell forward. Ever since then she has had headaches, blurred vision, nausea, and dizziness. She went to the emergency department yesterday for the symptoms and a repeat her head CT, negative as reviewed below. She also had a head CT and cervical spine CT at the time of her original injury. At baseline she gets around in a wheelchair, she is debilitated by severe neuropathy. I also note that she has severe cervical spondylosis which could contribute to this picture. In any event, the patient took her usual Ambien, Lortab, continued with her fentanyl patch, along with her blood pressure medicines. Her blood pressure has been running higher ever since the head injury. She then lost consciousness. No one witnessed any seizure activity. Systolic blood pressure was 68 per paramedics. Patient was given some Narcan and improved some, and she is feeling back to herself today. She has no history of stroke or other head injury. She has never had a seizure. Past Medical History Cardiovascular: CHF, HTN, Hyperlipidemia Pulmonary: COPD, Pneumonia, Other (sleep apnea) GI: Constipation, GERD, Hemorrhoids, Other (colonic polyps) Psych: Anxiety, Depression Musculoskeletal: low back pain (lumbar and cervical spondylosis), Osteoarthritis Rheumatologic: Fibromyalgia, Gout Renal/: UTI Endocrine: Diabetes Dermatology: Cellulitis Past Surgical History Past Surgical History: Pacemaker, Cholecystectomy, Cataract Removal, Total hip replacement (right), Hysterectomy, Other (cardiac cath, bilateral rotator cuff) Family History Family History: No pertinent hx (negative for seizures) Social History Social History , lives on her own, wheelchair bound, no alcohol or tobacco Current Medications Current Medications Current Medications Naloxone HCl (Narcan) 1 mg 1X ONCE IV Last administered on 03/13/18at 01:17; Start 03/13/18 at 01:00; Stop 03/13/18 at 01:01; Status DC Ondansetron HCl (Zofran) 4 mg PRN Q8HRS PRN IV NAUSEA/VOMITING 1ST CHOICE; Start 03/13/18 at 02:00; Stop 03/13/18 at 10:45; Status DC Insulin Human Lispro (HumaLOG) 0-5 UNITS TIDWMEALS SQ ; Start 03/13/18 at 08:00 Dextrose (Dextrose 50%-Water Syringe) 12.5 gm PRN Q15MIN PRN IV SEE COMMENTS; Start 03/13/18 at 02:00 Naloxone HCl (Narcan) 1 mg PRN Q2HR PRN IV CONFUSION; Start 03/13/18 at 02:00 Bisacodyl (Dulcolax Tab) 5 mg PRN DAILY PRN PO CONSTIPATION 1ST CHOICE; Start 03/13/18 at 05:00 Cyclobenzaprine HCl (Flexeril) 10 mg BID PO Last administered on 03/13/18at 09:41 ; Start 03/13/18 at 09:00; Stop 03/13/18 at 10:53; Status DC Docusate Sodium (Colace) 100 mg BID PO Last administered on 03/13/18at 09:40; Start 03/13/18 at 09:00 Pregabalin (Lyrica) 75 mg BID PO Last administered on 03/13/18at 09:40; Start 03/13/18 at 09:00; Stop 03/13/18 at 10:53; Status DC Sertraline HCl (Zoloft) 50 mg DAILY PO Last administered on 03/13/18at 09:40; Start 03/13/18 at 09:00 Non-Formulary Medication (Albuterol Sulfate (Albuterol Sulfate Conc Neb Soln)) 1 vial Q6HRS NEB ; Start 03/13/18 at 06:00; Status UNV Carvedilol (Coreg) 12.5 mg BIDWMEALS PO Last administered on 03/13/18at 08:00; Start 03/13/18 at 08:00 Vitamin D (Vitamin D3) 1,000 unit DAILY PO Last administered on 03/13/18at 09:40 ; Start 03/13/18 at 09:00 Non-Formulary Medication (Fluticasone/ Salmeterol (Advair 250-50 Diskus)) 1 puff BID IH ; Start 03/13/18 at 09:00; Status UNV Losartan Potassium (Cozaar) 100 mg DAILY PO Last administered on 03/13/18at 09:40 ; Start 03/13/18 at 09:00; Stop 03/13/18 at 10:53; Status DC Non-Formulary Medication (Melatonin ) 10 mg DAILY PO ; Start 03/13/18 at 09:00; Status UNV Multivitamins (Thera M Plus) 1 tab DAILY PO Last administered on 03/13/18at 09:40 ; Start 03/13/18 at 09:00 Pantoprazole Sodium (Protonix) 40 mg DAILYAC PO Last administered on 03/13/18at 07:59; Start 03/13/18 at 07:30 Albuterol Sulfate (Ventolin Neb Soln) 2.5 mg RTQID NEB Last administered on 03/13at 08:31; Start 03/13/18 at 08:00; Stop 03/13/18 at 10:53; Status DC Albuterol Sulfate (Ventolin Neb Soln) 2.5 mg PRN Q6HRS PRN NEB SHORTNESS OF BREATH; Start 03/13/18 at 05:15 Budesonide (Pulmicort) 0.5 mg RTBID NEB Last administered on 03/13/18at 08:31; Start 03/13/18 at 08:00 Acetaminophen (Tylenol) 325 mg PRN Q4HRS PRN PO MILD PAIN / TEMP; Start at 10:15 Alprazolam (Xanax) 0.25 mg DAILYWSUP PO ; Start 03/13/18 at 17:00 Fentanyl (Duragesic 12mcg/ Hr Patch) 1 patch Q72H TD Last administered on at 12:21; Start 03/13/18 at 11:00 Acetaminophen/ Hydrocodone Bitart (Lortab 5/325) 1 tab PRN Q8HRS PRN PO MODERATE-SEVERE PAIN; Start 03/13/18 at 10:15; Stop 03/13/18 at 11:05; Status DC Zolpidem Tartrate (Ambien) 5 mg PRN QHS PRN PO INSOMNIA; Start 03/13/18 at 10:15 Ondansetron HCl (Zofran) 4 mg PRN Q6HRS PRN IV NAUSEA/VOMITING; Start 03/13/18 at 10:15 Albuterol Sulfate (Ventolin Neb Soln) 2.5 mg RTQID PRN NEB SHORTNESS OF BREATH ; Start 03/13/18 at 11:00 Pregabalin (Lyrica) 50 mg BID PO ; Start 03/13/18 at 21:00 Acetaminophen/ Hydrocodone Bitart (Lortab 5/325) 1 tab PRN TID PRN PO MODERATE- SEVERE PAIN; Start 03/13/18 at 11:15 Perflutren Protein Type A Microsphe (Optison) 0.66 mg STK-MED ONCE IV ; Start at 11:14; Stop 03/13/18 at 11:16; Status DC Perflutren Protein Type A Microsphe (Optison) 0.66 mg PRN 1X PRN IV SEE COMMENTS Last administered on 03/13/18at 12:00; Start 03/13/18 at 12:00; Stop at 11:59 Active Scripts Active Lyrica (Pregabalin) 75 Mg Capsule 75 Mg PO BID 30 Days Reported Duoneb 0.5-3(2.5) Mg/3 Ml (Albuterol/Ipratropium) 3 Ml Ampul.neb 3 Ml NEB PRN Q4HRS PRN Tylenol (Acetaminophen) 325 Mg Tablet 1 Tab PO PRN Q4HRS Ambien (Zolpidem Tartrate) 5 Mg Tablet 5 Mg PO PRN QHS PRN Hydrocodone-Apap 5-325 (Hydrocodone Bit/Acetaminophen) 1 Tab Tablet 1 Tab PO PRN Q8HRS PRN FENTANYL 12mcg/hr (Fentanyl) 1 Each Patch.td72 1 Patch TD Q72H Alprazolam 0.25 Mg Tablet 1 Tab PO DAILY17 [lidocaine patch 5% ] DAILY Dulcolax (Bisacodyl) 5 Mg Tablet.dr 5 Mg PO PRN DAILY PRN Melatonin 3 Mg Tablet 10 Mg PO DAILY Carvedilol 25 Mg Tablet 12.5 Mg PO BIDWMEALS Losartan Potassium 100 Mg Tablet 100 Mg PO DAILY Zoloft (Sertraline Hcl) 50 Mg Tablet 1 Tab PO DAILY Cyclobenzaprine Hcl 10 Mg Tablet 1 Tab PO BID Omeprazole 20 Mg Capsule.dr 1 Cap PO DAILY Albuterol Sulfate Conc Neb Soln (Albuterol Sulfate) 2.5 Mg/0.5 Ml Vial.neb 1 Vial NEB Q6HRS Vitamin D (Cholecalciferol (Vitamin D3)) 1,000 Unit Capsule 1 Cap PO DAILY Advair 250-50 Diskus (Fluticasone/Salmeterol) 1 Each Disk.w.dev 1 Puff IH BID Multi-Day Vitamins (Multivitamin) 1 Each Tablet 1 Tab PO DAILY Colace (Docusate Sodium) 100 Mg Capsule 100 Mg PO BID Allergies Allergies: Coded Allergies: Iodinated Contrast- Oral and IV Dye (Verified Allergy, Intermediate, Itching, 07/31/17) I S O L A T I O N *CONTACT* (Verified Allergy, Unknown, 07/31/17) mrsa screen + amlodipine (Verified Allergy, Unknown, 03/13/18) doxazosin (Verified Allergy, Unknown, 03/13/18) lisinopril (Verified Allergy, Unknown, 03/13/18) niacin (Verified Allergy, Unknown, 03/13/18) atorvastatin (Verified Adverse Reaction, Unknown, 03/13/18) clonidine (Verified Adverse Reaction, Unknown, 03/13/18) fluvastatin (Verified Adverse Reaction, Unknown, 03/13/18) lovastatin (Verified Adverse Reaction, Unknown, 03/13/18) nifedipine (Verified Adverse Reaction, Unknown, 03/13/18) rosuvastatin (Verified Adverse Reaction, Unknown, 03/13/18) ROS Review of System Negative for fever, chills, weight loss, shortness of breath, chest pain, indigestion, hematochezia, melena, and dysuria. Full 14-point review of systems is negative. Physical Exam Physical Examination General: Well-developed, well-nourished, white female, in no acute distress HEENT: Normocephalic and�atraumatic.�Temporal arteries�pulsatile and nontender. Neck: Supple without bruit, no meningismus� Musculoskeletal: Stability:�see neurologic. Gait exam:�see neurologic. Tone:�see neurologic.� Strength:�see neurologic.� Neurological: Mental Status:�intact, orientation, memory, attention span/concentration, language, fund of knowledge normal. Cranial Nerves:�Pupils equal and reactive to light, extraocular movements are�intact, visual domínguez are full to confrontation. Facial sensation is normal. There is no facial asymmetry. Vestibulo-ocular reflex is intact. Palate elevates and tongue protrudes in midline. All other cranial related problems are negative except as mentioned before.�Reflexes:�0+ and symmetric with flexor plantar responses. Motor:�4/5 strength with normal tone and bulk. Coordination:�Finger-nose finger and heel-to -lechuga testing are normal. Rapid alternating movements and fine finger movements are intact. Gait:�Not tested. Sensory:�Diffuse loss sparing torso and face Vitals VITALS Vital Signs Date Time Temp Pulse Resp B/P (MAP) Pulse Ox O2 Delivery O2 Flow Rate FiO2 03/13/18 13:18 137/56 (83) 03/13/18 12:21 16 Nasal Cannula 2.0 03/13/18 12:00 97.8 77 96 97.8 Labs Labs Laboratory Tests Test 03/12/18 00:30 03/13/18 01:10 03/13/18 05:05 03/13/18 07:45 Urine Collection Type U cath Urine Color Yellow Urine Clarity Clear Urine pH 6.0 Urine Specific [place] 1.020 Urine Protein 30 mg/dL (NEG-TRACE) Urine Glucose (UA) Negative mg/dL (NEG) Urine Ketones (Stick) Negative mg/dL (NEG) Urine Blood Large (NEG) Urine Nitrite Negative (NEG) Urine Bilirubin Negative (NEG) Urine Urobilinogen Dipstick 1.0 mg/dL (0.2 mg/dL) Urine Leukocyte Esterase Small (NEG) Urine RBC 20-40 /HPF (0-2) Urine WBC 1-4 /HPF (0-4) Urine Squamous Epithelial Cells Few /LPF Urine Amorphous Sediment Present /HPF Urine Bacteria Mod /HPF (0-FEW) Urine Hyaline Casts Few /HPF Urine Mucus Mod /LPF Urine Opiates Screen Pos (NEG) Urine Methadone Screen Neg (NEG) Urine Barbiturates Neg (NEG) Urine Phencyclidine Screen Neg (NEG) Urine Amphetamine/Methamphetamine Neg (NEG) Urine Benzodiazepines Screen Pos (NEG) Urine Cocaine Screen Neg (NEG) Urine Cannabinoids Screen Neg (NEG) Urine Ethyl Alcohol Neg (NEG) White Blood Count 7.0 x10^3/uL (4.0-11.0) Red Blood Count 4.77 x10^6/uL (3.50-5.40) Hemoglobin 13.6 g/dL (12.0-15.5) Hematocrit 42.4 % (36.0-47.0) Mean Corpuscular Volume 89 fL (79-100) Mean Corpuscular Hemoglobin 29 pg (25-35) Mean Corpuscular Hemoglobin Concent 32 g/dL (31-37) Red Cell Distribution Width 14.7 % (11.5-14.5) Platelet Count 178 x10^3/uL (140-400) Neutrophils (%) (Auto) 74 % (31-73) Lymphocytes (%) (Auto) 18 % (24-48) Monocytes (%) (Auto) 6 % (0-9) Eosinophils (%) (Auto) 2 % (0-3) Basophils (%) (Auto) 0 % (0-3) Neutrophils # (Auto) 5.2 x10^3uL (1.8-7.7) Lymphocytes # (Auto) 1.2 x10^3/uL (1.0-4.8) Monocytes # (Auto) 0.4 x10^3/uL (0.0-1.1) Eosinophils # (Auto) 0.1 x10^3/uL (0.0-0.7) Basophils # (Auto) 0.0 x10^3/uL (0.0-0.2) Prothrombin Time 13.4 SEC (11.7-14.0) Prothromb Time International Ratio 1.1 (0.8-1.1) Activated Partial Thromboplast Time 26 SEC (24-38) Sodium Level 138 mmol/L (136-145) Potassium Level 3.6 mmol/L (3.5-5.1) Chloride Level 97 mmol/L (98-107) Carbon Dioxide Level 31 mmol/L (21-32) Anion Gap 10 (6-14) Blood Urea Nitrogen 16 mg/dL (7-20) Creatinine 1.8 mg/dL (0.6-1.0) Estimated GFR (Cockcroft-Gault) 26.7 BUN/Creatinine Ratio 9 (6-20) Glucose Level 136 mg/dL (70-99) Lactic Acid Level 2.0 mmol/L (0.4-2.0) Calcium Level 9.3 mg/dL (8.5-10.1) Magnesium Level 1.9 mg/dL (1.8-2.4) Total Bilirubin 0.6 mg/dL (0.2-1.0) Aspartate Amino Transf (AST/SGOT) 25 U/L (15-37) Alanine Aminotransferase (ALT/SGPT) 19 U/L (14-59) Alkaline Phosphatase 78 U/L (46-116) Ammonia < 10 mcmol/L (11-34) Creatine Kinase 177 U/L (26-192) Creatine Kinase MB (Mass) 2.4 ng/mL (0.0-3.6) Creatine Kinase MB Relative Index 1.4 % (0-4) Troponin I Quantitative 0.027 ng/mL (0.000-0.055) 0.033 ng/mL (0.000-0.055) Total Protein 7.4 g/dL (6.4-8.2) Albumin 3.5 g/dL (3.4-5.0) Albumin/Globulin Ratio 0.9 (1.0-1.7) Ethyl Alcohol Level < 10 mg/dL (0-10) Glucose (Fingerstick) 88 mg/dL (70-99) Test 03/13/18 07:58 03/13/18 12:17 Sodium Level 136 mmol/L (136-145) Potassium Level 3.5 mmol/L (3.5-5.1) Chloride Level 100 mmol/L (98-107) Carbon Dioxide Level 28 mmol/L (21-32) Anion Gap 8 (6-14) Blood Urea Nitrogen 17 mg/dL (7-20) Creatinine 1.6 mg/dL (0.6-1.0) Estimated GFR (Cockcroft-Gault) 30.6 Glucose Level 113 mg/dL (70-99) Calcium Level 9.2 mg/dL (8.5-10.1) Troponin I Quantitative 0.025 ng/mL (0.000-0.055) Glucose (Fingerstick) 95 mg/dL (70-99) Laboratory Tests Test 03/13/18 01:10 03/13/18 05:05 03/13/18 07:45 03/13/18 07:58 White Blood Count 7.0 x10^3/uL (4.0-11.0) Red Blood Count 4.77 x10^6/uL (3.50-5.40) Hemoglobin 13.6 g/dL (12.0-15.5) Hematocrit 42.4 % (36.0-47.0) Mean Corpuscular Volume 89 fL (79-100) Mean Corpuscular Hemoglobin 29 pg (25-35) Mean Corpuscular Hemoglobin Concent 32 g/dL (31-37) Red Cell Distribution Width 14.7 % (11.5-14.5) Platelet Count 178 x10^3/uL (140-400) Neutrophils (%) (Auto) 74 % (31-73) Lymphocytes (%) (Auto) 18 % (24-48) Monocytes (%) (Auto) 6 % (0-9) Eosinophils (%) (Auto) 2 % (0-3) Basophils (%) (Auto) 0 % (0-3) Neutrophils # (Auto) 5.2 x10^3uL (1.8-7.7) Lymphocytes # (Auto) 1.2 x10^3/uL (1.0-4.8) Monocytes # (Auto) 0.4 x10^3/uL (0.0-1.1) Eosinophils # (Auto) 0.1 x10^3/uL (0.0-0.7) Basophils # (Auto) 0.0 x10^3/uL (0.0-0.2) Prothrombin Time 13.4 SEC (11.7-14.0) Prothromb Time International Ratio 1.1 (0.8-1.1) Activated Partial Thromboplast Time 26 SEC (24-38) Sodium Level 138 mmol/L (136-145) 136 mmol/L (136-145) Potassium Level 3.6 mmol/L (3.5-5.1) 3.5 mmol/L (3.5-5.1) Chloride Level 97 mmol/L (98-107) 100 mmol/L (98-107) Carbon Dioxide Level 31 mmol/L (21-32) 28 mmol/L (21-32) Anion Gap 10 (6-14) 8 (6-14) Blood Urea Nitrogen 16 mg/dL (7-20) 17 mg/dL (7-20) Creatinine 1.8 mg/dL (0.6-1.0) 1.6 mg/dL (0.6-1.0) Estimated GFR (Cockcroft-Gault) 26.7 30.6 BUN/Creatinine Ratio 9 (6-20) Glucose Level 136 mg/dL (70-99) 113 mg/dL (70-99) Lactic Acid Level 2.0 mmol/L (0.4-2.0) Calcium Level 9.3 mg/dL (8.5-10.1) 9.2 mg/dL (8.5-10.1) Magnesium Level 1.9 mg/dL (1.8-2.4) Total Bilirubin 0.6 mg/dL (0.2-1.0) Aspartate Amino Transf (AST/SGOT) 25 U/L (15-37) Alanine Aminotransferase (ALT/SGPT) 19 U/L (14-59) Alkaline Phosphatase 78 U/L (46-116) Ammonia < 10 mcmol/L (11-34) Creatine Kinase 177 U/L (26-192) Creatine Kinase MB (Mass) 2.4 ng/mL (0.0-3.6) Creatine Kinase MB Relative Index 1.4 % (0-4) Troponin I Quantitative 0.027 ng/mL (0.000-0.055) 0.033 ng/mL (0.000-0.055) 0.025 ng/mL (0.000-0.055) Total Protein 7.4 g/dL (6.4-8.2) Albumin 3.5 g/dL (3.4-5.0) Albumin/Globulin Ratio 0.9 (1.0-1.7) Ethyl Alcohol Level < 10 mg/dL (0-10) Glucose (Fingerstick) 88 mg/dL (70-99) Test 03/13/18 12:17 Glucose (Fingerstick) 95 mg/dL (70-99) Images Images 1. CT HEAD WITHOUT CONTRAST. 2. CT CERVICAL SPINE WITHOUT CONTRAST. HISTORY: Altered mental status. Unresponsive, fall. TECHNIQUE: Computed tomography of the head and cervical spine was performed without intravenous contrast. COMPARISON: 03/12/2018. 02/13/2018. FINDINGS: There are limitations from motion artifact on some series. The examination remains diagnostic for the following. There is no intracranial hemorrhage. Hypoattenuation within the white matter indicates moderate chronic microangiopathic change. Prominence of the lateral ventricles and hemispheric sulci indicates mild to moderate atrophy. The visualized paranasal sinuses appear clear. There are changes of bilateral cataract surgery. The temporal bones are unremarkable. The calvarium reveals no suspicious lesions. Reversal of the normal lordosis is likely positional. There is 2 mm anterolisthesis at C4-5. There is moderate osteoarthritis at C1-2 with bulky pannus posteriorly. This measures up to 12 mm anteroposteriorly and results in moderate to severe central stenosis at the craniocervical junction. No fractures are identified. Degenerative disc disease is moderate to severe from C3 through C7 and within the upper thoracic spine. There is no prevertebral soft tissue swelling. At C2-3, facet osteoarthritis is severe on the right and mild on the left. Uncovertebral osteoarthritis is moderate bilaterally. There is a small posterior disc-osteophyte complex. Central canal stenosis appears mild. Neural foraminal stenosis is moderate to severe bilaterally. At C3-4, there is a small to moderate posterior disc bulge. Central canal stenosis appears mild to moderate. Uncovertebral osteoarthritis is moderate bilaterally. Neural foraminal stenosis is moderate to severe bilaterally. At C4-5, a moderate to large posterior disc-osteophyte complex and ossification of the ligamentum flavum on the left result in severe central canal stenosis. The cord is flattened with central canal diameter approximately 3 mm anteroposteriorly. Facet osteoarthritis is severe on the right. Uncovertebral osteoarthritis is moderate to severe bilaterally. Neural foraminal stenosis is moderate on the left and moderate to severe on the right. At C5-6, there is a small posterior disc bulge. Uncovertebral osteoarthritis is mild bilaterally. Neural foraminal stenosis is moderate on the right greater than left. Central canal stenosis appears mild. At C6-7, there is a moderate to large posterior disc-osteophyte complex. Central canal stenosis is moderate to severe. Uncovertebral osteoarthritis is severe bilaterally. Neural foraminal stenosis is moderate to severe bilaterally. Pacemaker leads are partially visualized. The proximal esophagus is mildly distended with debris. Carotid atherosclerotic calcifications are noted. IMPRESSION: 1. No acute intracranial findings. Moderate chronic microangiopathic white matter change and mild to moderate atrophy for patient age. 2. Motion artifact limits sensitivity for cervical fractures. None are seen. 3. 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 4. Ligamentum flavum hypertrophy and a posterior disc-osteophyte complex at C4-5 resulting in severe central canal stenosis with cord flattening and minimal anteroposterior central canal diameter 3 mm. 5. Additional central canal stenosis is moderate to severe at C6-7 and mild to moderate elsewhere. MRI could further assess stenosis if there is persistent concern. 6. Multifocal moderate to severe neural foraminal stenosis as above. Assessment/Plan Assessment/Plan Impression: Vasovagal syncope due to pain medications and antihypertensives. Postconcussion syndrome. Severe cervical spondylosis. Also history of lumbar spondylosis. 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 No evidence that she had a stroke or a seizure. Recommendations: Rehabilitation modalities. Neurosurgical intervention probably won't help with this situation overall, she has been wheelchair-bound for years. Cardiac workup. Lab work for other causes of neuropathy. Thank you for letting me help with the patient's care. JOVANY TY MD Mar 13, 2018 13:53
--- NOTE | 2018-03-13 14:14 | RAD ---
Examination: RENAL COMPLETE BILATERAL History: Acute kidney injury Comparison/Correlation: 10/08/2014 bilateral renal ultrasound exam, CT abdomen and pelvis without contrast 05/20/2011 Findings: Bilateral renal ultrasound exam was performed. Right kidney measures 10 cm x 5.16 x 4.6 cm. Left kidney measures 10.2 cm x 5.17 x 4.5 cm. Renal cortical echotexture and contours are normal. No evidence of nephrolithiasis. Right renal lower pole caliectasis is present. Right renal superior pole complex cyst cystic structure measuring up to 2.17 x 1.5 cm is present. Urinary bladder is unremarkable. Bilateral ureteral jets are present. Prevoid urinary bladder volume is 387 cc. Atherocalcific involvement of the aorta is present. Inferior vena cava and proximal aorta are partially obscured by bowel gas. Mid abdominal aortic diameter of 1.7 cm noted. Impression: Right lower pole caliectasis. This finding is new upon correlation with previous examination reports. Correlate clinically in determining further evaluation. No left hydronephrosis. Electronically signed by: Walter Mckinney MD (03/13/2018 2:10 PM) [facility]
[2018-03-13] MEDS ORDERED: ALPRAZolam 0.25 MG TABLET PO SCH (17:00)
[2018-03-13] MEDS: PREGABALIN 50 MG CAPSULE PO SCH (20:31)
[2018-03-13] MEDS: ALBUTEROL SULFATE 2.5 MG/3 ML NEBU. NEB PRN (20:47)
[2018-03-14 04:32] VITALS: BP 130/50
[2018-03-14] MEDS: BUDESONIDE 0.5 MG/2 ML NEBU. NEB SCH (07:51)
[2018-03-14] MEDS: ALBUTEROL SULFATE 2.5 MG/3 ML NEBU. NEB PRN (07:51)
[2018-03-14] MEDS: PANTOPRAZOLE 40 MG TABLET.DR. PO SCH (07:55)
[2018-03-14] MEDS: INSULIN LISPRO 300 UNITS/3 ML INSULN.PEN. SQ SCH (07:55)
[2018-03-14 07:59] VITALS: BP 177/68
[2018-03-14] MEDS: SERTRALINE 50 MG TABLET. PO SCH (08:45)
[2018-03-14] MEDS: DOCUSATE SODIUM 100 MG CAPSULE. PO SCH (08:45)
[2018-03-14] MEDS: MULTIVITAMIN with MINERAL TABLET. PO SCH (08:45)
[2018-03-14] MEDS: CHOLECALCIFEROL (VITAMIN D3) 1,000 UNIT TABLET PO SCH (08:45)
[2018-03-14] MEDS: PREGABALIN 50 MG CAPSULE PO SCH (08:46)
[2018-03-14] MEDS: CARVEDILOL 12.5 MG TABLET. PO SCH (08:46)
--- NOTE | 2018-03-14 10:35 | PDOC ---
PROGRESS NOTES Subjective Subjective feels well and wants to go home. lab and echo reviewed. renal ultrasound reviewed. Objective Objective Vital Signs Date Time Temp Pulse Resp B/P (MAP) Pulse Ox O2 Delivery O2 Flow Rate FiO2 03/14/18 08:46 89 177/68 03/14/18 07:59 97.6 18 95 Nasal Cannula 2.0 97.6 Intake and Output 03/14/18 07:01 Intake Total 940 ml Output Total 250 ml Balance 690 ml Intake Oral 940 ml Output Urine Total 250 ml Physical Exam Abdomen: Soft Heart: Regular rate, Normal S1, Normal S2 Extremities: No edema General: Alert HEENT: Atraumatic Lungs: Clear to auscultation Neuro: Normal speech Psych/Mental Status: Mental status NL Skin: No rashes Assessment Assessment Problems1. vasal vagal syncope 2. Diabetes mellitus type 2 with peripheral neuropathy. 3. Hypertension. 4. Hyperlipidemia. 5. Chronic hypoxic respiratory failure. 6. Chronic obstructive pulmonary disease. 7. Hyperlipidemia. 8. Chronic diastolic congestive heart failure. 9. Debility. 10. 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 11. Cervical spinal stenosis. 12. Acute kidney injury. toxic encephalopathy resolved Medical Problems: (1) Altered mental status Status: Acute (2) Hx of hypotension Status: Acute (3) Opioid overdose Status: Acute Plan Plan of Care decreased ambien and norco and fentanyl patch and xanax at dinner only continue carvedilol dismiss today Comment Review of Relevant I have reviewed the following items lizbeth (where applicable) has been applied. Labs Laboratory Tests Test 03/13/18 01:10 03/13/18 05:00 03/13/18 05:05 03/13/18 07:45 White Blood Count 7.0 x10^3/uL (4.0-11.0) Red Blood Count 4.77 x10^6/uL (3.50-5.40) Hemoglobin 13.6 g/dL (12.0-15.5) Hematocrit 42.4 % (36.0-47.0) Mean Corpuscular Volume 89 fL (79-100) Mean Corpuscular Hemoglobin 29 pg (25-35) Mean Corpuscular Hemoglobin Concent 32 g/dL (31-37) Red Cell Distribution Width 14.7 % (11.5-14.5) Platelet Count 178 x10^3/uL (140-400) Neutrophils (%) (Auto) 74 % (31-73) Lymphocytes (%) (Auto) 18 % (24-48) Monocytes (%) (Auto) 6 % (0-9) Eosinophils (%) (Auto) 2 % (0-3) Basophils (%) (Auto) 0 % (0-3) Neutrophils # (Auto) 5.2 x10^3uL (1.8-7.7) Lymphocytes # (Auto) 1.2 x10^3/uL (1.0-4.8) Monocytes # (Auto) 0.4 x10^3/uL (0.0-1.1) Eosinophils # (Auto) 0.1 x10^3/uL (0.0-0.7) Basophils # (Auto) 0.0 x10^3/uL (0.0-0.2) Prothrombin Time 13.4 SEC (11.7-14.0) Prothromb Time International Ratio 1.1 (0.8-1.1) Activated Partial Thromboplast Time 26 SEC (24-38) Sodium Level 138 mmol/L (136-145) Potassium Level 3.6 mmol/L (3.5-5.1) Chloride Level 97 mmol/L (98-107) Carbon Dioxide Level 31 mmol/L (21-32) Anion Gap 10 (6-14) Blood Urea Nitrogen 16 mg/dL (7-20) Creatinine 1.8 mg/dL (0.6-1.0) Estimated GFR (Cockcroft-Gault) 26.7 BUN/Creatinine Ratio 9 (6-20) Glucose Level 136 mg/dL (70-99) Lactic Acid Level 2.0 mmol/L (0.4-2.0) Calcium Level 9.3 mg/dL (8.5-10.1) Magnesium Level 1.9 mg/dL (1.8-2.4) Total Bilirubin 0.6 mg/dL (0.2-1.0) Aspartate Amino Transf (AST/SGOT) 25 U/L (15-37) Alanine Aminotransferase (ALT/SGPT) 19 U/L (14-59) Alkaline Phosphatase 78 U/L (46-116) Ammonia < 10 mcmol/L (11-34) Creatine Kinase 177 U/L (26-192) Creatine Kinase MB (Mass) 2.4 ng/mL (0.0-3.6) Creatine Kinase MB Relative Index 1.4 % (0-4) Troponin I Quantitative 0.027 ng/mL (0.000-0.055) 0.033 ng/mL (0.000-0.055) Total Protein 7.4 g/dL (6.4-8.2) Albumin 3.5 g/dL (3.4-5.0) Albumin/Globulin Ratio 0.9 (1.0-1.7) Ethyl Alcohol Level < 10 mg/dL (0-10) Nasal Screen MRSA (PCR) Positive (Negative) Glucose (Fingerstick) 88 mg/dL (70-99) Test 03/13/18 07:58 03/13/18 12:17 03/13/18 16:57 03/13/18 20:31 Sodium Level 136 mmol/L (136-145) Potassium Level 3.5 mmol/L (3.5-5.1) Chloride Level 100 mmol/L (98-107) Carbon Dioxide Level 28 mmol/L (21-32) Anion Gap 8 (6-14) Blood Urea Nitrogen 17 mg/dL (7-20) Creatinine 1.6 mg/dL (0.6-1.0) Estimated GFR (Cockcroft-Gault) 30.6 Glucose Level 113 mg/dL (70-99) Calcium Level 9.2 mg/dL (8.5-10.1) Troponin I Quantitative 0.025 ng/mL (0.000-0.055) Glucose (Fingerstick) 95 mg/dL (70-99) 116 mg/dL (70-99) 119 mg/dL (70-99) Test 03/14/18 04:05 03/14/18 07:49 Erythrocyte Sedimentation Rate 18 (0-25) Glucose (Fingerstick) 99 mg/dL (70-99) Laboratory Tests Test 03/13/18 12:17 03/13/18 16:57 03/13/18 20:31 03/14/18 04:05 Glucose (Fingerstick) 95 mg/dL (70-99) 116 mg/dL (70-99) 119 mg/dL (70-99) Erythrocyte Sedimentation Rate 18 (0-25) Test 03/14/18 07:49 Glucose (Fingerstick) 99 mg/dL (70-99) Medications Current Medications Naloxone HCl (Narcan) 1 mg 1X ONCE IV Last administered on 03/13/18at 01:17; Start 03/13/18 at 01:00; Stop 03/13/18 at 01:01; Status DC Ondansetron HCl (Zofran) 4 mg PRN Q8HRS PRN IV NAUSEA/VOMITING 1ST CHOICE; Start 03/13/18 at 02:00; Stop 03/13/18 at 10:45; Status DC Insulin Human Lispro (HumaLOG) 0-5 UNITS TIDWMEALS SQ ; Start 03/13/18 at 08:00 Dextrose (Dextrose 50%-Water Syringe) 12.5 gm PRN Q15MIN PRN IV SEE COMMENTS; Start 03/13/18 at 02:00 Naloxone HCl (Narcan) 1 mg PRN Q2HR PRN IV CONFUSION; Start 03/13/18 at 02:00 Bisacodyl (Dulcolax Tab) 5 mg PRN DAILY PRN PO CONSTIPATION 1ST CHOICE; Start 03/13/18 at 05:00 Cyclobenzaprine HCl (Flexeril) 10 mg BID PO Last administered on 03/13/18at 09:41 ; Start 03/13/18 at 09:00; Stop 03/13/18 at 10:53; Status DC Docusate Sodium (Colace) 100 mg BID PO Last administered on 03/14/18at 08:45; Start 03/13/18 at 09:00 Pregabalin (Lyrica) 75 mg BID PO Last administered on 03/13/18at 09:40; Start 03/13/18 at 09:00; Stop 03/13/18 at 10:53; Status DC Sertraline HCl (Zoloft) 50 mg DAILY PO Last administered on 03/14/18at 08:45; Start 03/13/18 at 09:00 Non-Formulary Medication (Albuterol Sulfate (Albuterol Sulfate Conc Neb Soln)) 1 vial Q6HRS NEB ; Start 03/13/18 at 06:00; Status UNV Carvedilol (Coreg) 12.5 mg BIDWMEALS PO Last administered on 03/14/18at 08:46; Start 03/13/18 at 08:00 Vitamin D (Vitamin D3) 1,000 unit DAILY PO Last administered on 03/14/18 08:45 ; Start 03/13/18 at 09:00 Non-Formulary Medication (Fluticasone/ Salmeterol (Advair 250-50 Diskus)) 1 puff BID IH ; Start 03/13/18 at 09:00; Status UNV Losartan Potassium (Cozaar) 100 mg DAILY PO Last administered on 03/13/18 09:40 ; Start 03/13/18 at 09:00; Stop 03/13/18 at 10:53; Status DC Non-Formulary Medication (Melatonin ) 10 mg DAILY PO ; Start 03/13/18 at 09:00; Status UNV Multivitamins (Thera M Plus) 1 tab DAILY PO Last administered on 03/14/18 08:45 ; Start 03/13/18 at 09:00 Pantoprazole Sodium (Protonix) 40 mg DAILYAC PO Last administered on 03/14/18 07:55; Start 03/13/18 at 07:30 Albuterol Sulfate (Ventolin Neb Soln) 2.5 mg RTQID NEB Last administered on 03/13 08:31; Start 03/13/18 at 08:00; Stop 03/13/18 at 10:53; Status DC Albuterol Sulfate (Ventolin Neb Soln) 2.5 mg PRN Q6HRS PRN NEB SHORTNESS OF BREATH Last administered on 03/14/18 07:51; Start 03/13/18 at 05:15 Budesonide (Pulmicort) 0.5 mg RTBID NEB Last administered on 03/14/18 07:51; Start 03/13/18 at 08:00 Acetaminophen (Tylenol) 325 mg PRN Q4HRS PRN PO MILD PAIN / TEMP Last administered on 03/13/18 20:31; Start 03/13/18 at 10:15 Alprazolam (Xanax) 0.25 mg DAILYWSUP PO Last administered on 03/13/18 17:42; Start 03/13/18 at 17:00 Fentanyl (Duragesic 12mcg/ Hr Patch) 1 patch Q72H TD Last administered on 12:21; Start 03/13/18 at 11:00 Acetaminophen/ Hydrocodone Bitart (Lortab 5/325) 1 tab PRN Q8HRS PRN PO MODERATE-SEVERE PAIN; Start 03/13/18 at 10:15; Stop 03/13/18 at 11:05; Status DC Zolpidem Tartrate (Ambien) 5 mg PRN QHS PRN PO INSOMNIA Last administered on 03/13/18at 20:31; Start 03/13/18 at 10:15 Ondansetron HCl (Zofran) 4 mg PRN Q6HRS PRN IV NAUSEA/VOMITING; Start 03/13/18 at 10:15 Albuterol Sulfate (Ventolin Neb Soln) 2.5 mg RTQID PRN NEB SHORTNESS OF BREATH ; Start 03/13/18 at 11:00 Pregabalin (Lyrica) 50 mg BID PO Last administered on 03/14/18at 08:46; Start 03/13/18 at 21:00 Acetaminophen/ Hydrocodone Bitart (Lortab 5/325) 1 tab PRN TID PRN PO MODERATE- SEVERE PAIN; Start 03/13/18 at 11:15 Perflutren Protein Type A Microsphe (Optison) 0.66 mg STK-MED ONCE IV ; Start at 11:14; Stop 03/13/18 at 11:16; Status DC Perflutren Protein Type A Microsphe (Optison) 0.66 mg PRN 1X PRN IV SEE COMMENTS Last administered on 03/13/18at 12:00; Start 03/13/18 at 12:00; Stop at 11:59 Active Scripts Active Lyrica (Pregabalin) 75 Mg Capsule 75 Mg PO BID 30 Days Reported Duoneb 0.5-3(2.5) Mg/3 Ml (Albuterol/Ipratropium) 3 Ml Ampul.neb 3 Ml NEB PRN Q4HRS PRN Tylenol (Acetaminophen) 325 Mg Tablet 1 Tab PO PRN Q4HRS Ambien (Zolpidem Tartrate) 5 Mg Tablet 5 Mg PO PRN QHS PRN Hydrocodone-Apap 5-325 (Hydrocodone Bit/Acetaminophen) 1 Tab Tablet 1 Tab PO PRN Q8HRS PRN FENTANYL 12mcg/hr (Fentanyl) 1 Each Patch.td72 1 Patch TD Q72H Alprazolam 0.25 Mg Tablet 1 Tab PO DAILY17 [lidocaine patch 5% ] DAILY Dulcolax (Bisacodyl) 5 Mg Tablet.dr 5 Mg PO PRN DAILY PRN Melatonin 3 Mg Tablet 10 Mg PO DAILY Carvedilol 25 Mg Tablet 12.5 Mg PO BIDWMEALS Losartan Potassium 100 Mg Tablet 100 Mg PO DAILY Zoloft (Sertraline Hcl) 50 Mg Tablet 1 Tab PO DAILY Cyclobenzaprine Hcl 10 Mg Tablet 1 Tab PO BID Omeprazole 20 Mg Capsule.dr 1 Cap PO DAILY Albuterol Sulfate Conc Neb Soln (Albuterol Sulfate) 2.5 Mg/0.5 Ml Vial.neb 1 Vial NEB Q6HRS Vitamin D (Cholecalciferol (Vitamin D3)) 1,000 Unit Capsule 1 Cap PO DAILY Advair 250-50 Diskus (Fluticasone/Salmeterol) 1 Each Disk.w.dev 1 Puff IH BID Multi-Day Vitamins (Multivitamin) 1 Each Tablet 1 Tab PO DAILY Colace (Docusate Sodium) 100 Mg Capsule 100 Mg PO BID Vitals/I & O Vital Sign - Last 24 Hours 03/13/18 03/13/18 03/13/18 03/13/18 12:00 12:21 13:17 13:18 Temp 97.8 97.8 Pulse 77 Resp 18 16 B/P (MAP) 145/64 (91) 136/46 (76) 137/56 (83) Pulse Ox 96 O2 Delivery Nasal Cannula Nasal Cannula O2 Flow Rate 2.0 2.0 03/13/18 03/13/18 03/13/18 03/13/18 13:30 15:45 17:38 17:43 Temp 97.6 97.6 Pulse 82 82 Resp 20 B/P (MAP) 136/64 (88) 132/50 (77) 132/50 Pulse Ox 95 95 O2 Delivery Nasal Cannula Nasal Cannula O2 Flow Rate 2.0 2.0 03/13/18 03/13/18 03/13/18 03/13/18 19:55 20:00 20:50 20:54 Temp 98.0 98.0 Pulse 73 Resp 20 B/P (MAP) 126/56 (79) Pulse Ox 97 95 95 O2 Delivery Nasal Cannula Nasal Cannula Nasal Cannula Nasal Cannula O2 Flow Rate 2.0 2.0 2.0 2.0 03/13/18 03/14/18 03/14/1803/14/19 23:48 04:32 07:52 07:59 Temp 97.9 98.0 97.6 97.9 98.0 97.6 Pulse 77 76 89 Resp 20 20 18 B/P (MAP) 148/40 (76) 130/50 (76) 177/68 (104) Pulse Ox 96 94 95 95 O2 Delivery Nasal Cannula Nasal Cannula Nasal Cannula Nasal Cannula O2 Flow Rate 2.0 2.0 2.0 2.0 03/14/18 08:46 Pulse 89 B/P (MAP) 177/68 Intake and Output 03/13/18 03/13/18 03/14/18 15:01 23:01 07:01 Intake Total 840 ml 100 ml Output Total 250 ml Balance 590 ml 100 ml KARAN KIMBLE MD Mar 14, 2018 10:35
[2018-03-14] MEDS ORDERED: PREG50CA PO (10:42)
--- NOTE | 2018-03-14 10:43 | PDOC ---
PROGRESS NOTES Assessment Problems Medical Problems: (1) Altered mental status Status: Acute (2) Hx of hypotension Status: Acute (3) Opioid overdose Status: Acute Vasovagal syncope due to pain medications and antihypertensives. Postconcussion syndrome. Severe cervical spondylosis. Also history of lumbar spondylosis. 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 Lab work so far negative or pending. No evidence that she had a stroke or a seizure. Plan Rehabilitation modalities. Neurosurgical intervention probably won't help with this situation overall, she has been wheelchair-bound for years. Cardiac workup. Okay for discharge, she already has 29/08 nursing at home Follow-up with me as needed, especially if postconcussion symptoms persist Subjective Feels much better, wants to go home Objective Vital Signs Date Time Temp Pulse Resp B/P (MAP) Pulse Ox O2 Delivery O2 Flow Rate FiO2 03/14/18 08:46 89 177/68 03/14/18 07:59 97.6 18 95 Nasal Cannula 2.0 97.6 Intake and Output 03/14/18 07:01 Intake Total 940 ml Output Total 250 ml Balance 690 ml Intake Oral 940 ml Output Urine Total 250 ml PHYSICAL EXAM Alert. Oriented to time, place and person. PERRL. EOMI. CN: no focal findings. Muscle tone: normal. Muscle strength: 4/5 DTR: 0+ Plantar reflex: flexor Gait: not examined in bed. Sensory exam: stocking-glove loss. No cerebellar signs elicited. Small healing ecchymoses below both eyes Review of Relevant I have reviewed the following items lizbeth (where applicable) has been applied. Labs Laboratory Tests Test 03/13/18 01:10 03/13/18 05:00 03/13/18 05:05 03/13/18 07:45 White Blood Count 7.0 x10^3/uL (4.0-11.0) Red Blood Count 4.77 x10^6/uL (3.50-5.40) Hemoglobin 13.6 g/dL (12.0-15.5) Hematocrit 42.4 % (36.0-47.0) Mean Corpuscular Volume 89 fL (79-100) Mean Corpuscular Hemoglobin 29 pg (25-35) Mean Corpuscular Hemoglobin Concent 32 g/dL (31-37) Red Cell Distribution Width 14.7 % (11.5-14.5) Platelet Count 178 x10^3/uL (140-400) Neutrophils (%) (Auto) 74 % (31-73) Lymphocytes (%) (Auto) 18 % (24-48) Monocytes (%) (Auto) 6 % (0-9) Eosinophils (%) (Auto) 2 % (0-3) Basophils (%) (Auto) 0 % (0-3) Neutrophils # (Auto) 5.2 x10^3uL (1.8-7.7) Lymphocytes # (Auto) 1.2 x10^3/uL (1.0-4.8) Monocytes # (Auto) 0.4 x10^3/uL (0.0-1.1) Eosinophils # (Auto) 0.1 x10^3/uL (0.0-0.7) Basophils # (Auto) 0.0 x10^3/uL (0.0-0.2) Prothrombin Time 13.4 SEC (11.7-14.0) Prothromb Time International Ratio 1.1 (0.8-1.1) Activated Partial Thromboplast Time 26 SEC (24-38) Sodium Level 138 mmol/L (136-145) Potassium Level 3.6 mmol/L (3.5-5.1) Chloride Level 97 mmol/L (98-107) Carbon Dioxide Level 31 mmol/L (21-32) Anion Gap 10 (6-14) Blood Urea Nitrogen 16 mg/dL (7-20) Creatinine 1.8 mg/dL (0.6-1.0) Estimated GFR (Cockcroft-Gault) 26.7 BUN/Creatinine Ratio 9 (6-20) Glucose Level 136 mg/dL (70-99) Lactic Acid Level 2.0 mmol/L (0.4-2.0) Calcium Level 9.3 mg/dL (8.5-10.1) Magnesium Level 1.9 mg/dL (1.8-2.4) Total Bilirubin 0.6 mg/dL (0.2-1.0) Aspartate Amino Transf (AST/SGOT) 25 U/L (15-37) Alanine Aminotransferase (ALT/SGPT) 19 U/L (14-59) Alkaline Phosphatase 78 U/L (46-116) Ammonia < 10 mcmol/L (11-34) Creatine Kinase 177 U/L (26-192) Creatine Kinase MB (Mass) 2.4 ng/mL (0.0-3.6) Creatine Kinase MB Relative Index 1.4 % (0-4) Troponin I Quantitative 0.027 ng/mL (0.000-0.055) 0.033 ng/mL (0.000-0.055) Total Protein 7.4 g/dL (6.4-8.2) Albumin 3.5 g/dL (3.4-5.0) Albumin/Globulin Ratio 0.9 (1.0-1.7) Ethyl Alcohol Level < 10 mg/dL (0-10) Nasal Screen MRSA (PCR) Positive (Negative) Glucose (Fingerstick) 88 mg/dL (70-99) Test 03/13/18 07:58 03/13/18 12:17 03/13/18 16:57 03/13/18 20:31 Sodium Level 136 mmol/L (136-145) Potassium Level 3.5 mmol/L (3.5-5.1) Chloride Level 100 mmol/L (98-107) Carbon Dioxide Level 28 mmol/L (21-32) Anion Gap 8 (6-14) Blood Urea Nitrogen 17 mg/dL (7-20) Creatinine 1.6 mg/dL (0.6-1.0) Estimated GFR (Cockcroft-Gault) 30.6 Glucose Level 113 mg/dL (70-99) Calcium Level 9.2 mg/dL (8.5-10.1) Troponin I Quantitative 0.025 ng/mL (0.000-0.055) Glucose (Fingerstick) 95 mg/dL (70-99) 116 mg/dL (70-99) 119 mg/dL (70-99) Test 03/14/18 04:05 03/14/18 07:49 Erythrocyte Sedimentation Rate 18 (0-25) Glucose (Fingerstick) 99 mg/dL (70-99) Laboratory Tests Test 03/13/18 12:17 03/13/18 16:57 03/13/18 20:31 03/14/18 04:05 Glucose (Fingerstick) 95 mg/dL (70-99) 116 mg/dL (70-99) 119 mg/dL (70-99) Erythrocyte Sedimentation Rate 18 (0-25) Test 03/14/18 07:49 Glucose (Fingerstick) 99 mg/dL (70-99) Medications Current Medications Naloxone HCl (Narcan) 1 mg 1X ONCE IV Last administered on 03/13/18at 01:17; Start 03/13/18 at 01:00; Stop 03/13/18 at 01:01; Status DC Ondansetron HCl (Zofran) 4 mg PRN Q8HRS PRN IV NAUSEA/VOMITING 1ST CHOICE; Start 03/13/18 at 02:00; Stop 03/13/18 at 10:45; Status DC Insulin Human Lispro (HumaLOG) 0-5 UNITS TIDWMEALS SQ ; Start 03/13/18 at 08:00 Dextrose (Dextrose 50%-Water Syringe) 12.5 gm PRN Q15MIN PRN IV SEE COMMENTS; Start 03/13/18 at 02:00 Naloxone HCl (Narcan) 1 mg PRN Q2HR PRN IV CONFUSION; Start 03/13/18 at 02:00 Bisacodyl (Dulcolax Tab) 5 mg PRN DAILY PRN PO CONSTIPATION 1ST CHOICE; Start 03/13/18 at 05:00 Cyclobenzaprine HCl (Flexeril) 10 mg BID PO Last administered on 03/13/18at 09:41 ; Start 03/13/18 at 09:00; Stop 03/13/18 at 10:53; Status DC Docusate Sodium (Colace) 100 mg BID PO Last administered on 03/14/18at 08:45; Start 03/13/18 at 09:00 Pregabalin (Lyrica) 75 mg BID PO Last administered on 03/13/18at 09:40; Start 03/13/18 at 09:00; Stop 03/13/18 at 10:53; Status DC Sertraline HCl (Zoloft) 50 mg DAILY PO Last administered on 03/14/18at 08:45; Start 03/13/18 at 09:00 Non-Formulary Medication (Albuterol Sulfate (Albuterol Sulfate Conc Neb Soln)) 1 vial Q6HRS NEB ; Start 03/13/18 at 06:00; Status UNV Carvedilol (Coreg) 12.5 mg BIDWMEALS PO Last administered on 03/14/18at 08:46; Start 03/13/18 at 08:00 Vitamin D (Vitamin D3) 1,000 unit DAILY PO Last administered on 03/14/18 08:45 ; Start 03/13/18 at 09:00 Non-Formulary Medication (Fluticasone/ Salmeterol (Advair 250-50 Diskus)) 1 puff BID IH ; Start 03/13/18 at 09:00; Status UNV Losartan Potassium (Cozaar) 100 mg DAILY PO Last administered on 03/13/18 09:40 ; Start 03/13/18 at 09:00; Stop 03/13/18 at 10:53; Status DC Non-Formulary Medication (Melatonin ) 10 mg DAILY PO ; Start 03/13/18 at 09:00; Status UNV Multivitamins (Thera M Plus) 1 tab DAILY PO Last administered on 03/14/18 08:45 ; Start 03/13/18 at 09:00 Pantoprazole Sodium (Protonix) 40 mg DAILYAC PO Last administered on 03/14/18 07:55; Start 03/13/18 at 07:30 Albuterol Sulfate (Ventolin Neb Soln) 2.5 mg RTQID NEB Last administered on 03/13 08:31; Start 03/13/18 at 08:00; Stop 03/13/18 at 10:53; Status DC Albuterol Sulfate (Ventolin Neb Soln) 2.5 mg PRN Q6HRS PRN NEB SHORTNESS OF BREATH Last administered on 03/14/18 07:51; Start 03/13/18 at 05:15 Budesonide (Pulmicort) 0.5 mg RTBID NEB Last administered on 03/14/18 07:51; Start 03/13/18 at 08:00 Acetaminophen (Tylenol) 325 mg PRN Q4HRS PRN PO MILD PAIN / TEMP Last administered on 03/13/18 20:31; Start 03/13/18 at 10:15 Alprazolam (Xanax) 0.25 mg DAILYWSUP PO Last administered on 03/13/18 17:42; Start 03/13/18 at 17:00 Fentanyl (Duragesic 12mcg/ Hr Patch) 1 patch Q72H TD Last administered on 12:21; Start 03/13/18 at 11:00 Acetaminophen/ Hydrocodone Bitart (Lortab 5/325) 1 tab PRN Q8HRS PRN PO MODERATE-SEVERE PAIN; Start 03/13/18 at 10:15; Stop 03/13/18 at 11:05; Status DC Zolpidem Tartrate (Ambien) 5 mg PRN QHS PRN PO INSOMNIA Last administered on 03/13/18at 20:31; Start 03/13/18 at 10:15 Ondansetron HCl (Zofran) 4 mg PRN Q6HRS PRN IV NAUSEA/VOMITING; Start 03/13/18 at 10:15 Albuterol Sulfate (Ventolin Neb Soln) 2.5 mg RTQID PRN NEB SHORTNESS OF BREATH ; Start 03/13/18 at 11:00 Pregabalin (Lyrica) 50 mg BID PO Last administered on 03/14/18at 08:46; Start 03/13/18 at 21:00 Acetaminophen/ Hydrocodone Bitart (Lortab 5/325) 1 tab PRN TID PRN PO MODERATE- SEVERE PAIN; Start 03/13/18 at 11:15 Perflutren Protein Type A Microsphe (Optison) 0.66 mg STK-MED ONCE IV ; Start at 11:14; Stop 03/13/18 at 11:16; Status DC Perflutren Protein Type A Microsphe (Optison) 0.66 mg PRN 1X PRN IV SEE COMMENTS Last administered on 03/13/18at 12:00; Start 03/13/18 at 12:00; Stop at 11:59 Active Scripts Active Lyrica (Pregabalin) 75 Mg Capsule 75 Mg PO BID 30 Days Reported Duoneb 0.5-3(2.5) Mg/3 Ml (Albuterol/Ipratropium) 3 Ml Ampul.neb 3 Ml NEB PRN Q4HRS PRN Tylenol (Acetaminophen) 325 Mg Tablet 1 Tab PO PRN Q4HRS Ambien (Zolpidem Tartrate) 5 Mg Tablet 5 Mg PO PRN QHS PRN Hydrocodone-Apap 5-325 (Hydrocodone Bit/Acetaminophen) 1 Tab Tablet 1 Tab PO PRN Q8HRS PRN FENTANYL 12mcg/hr (Fentanyl) 1 Each Patch.td72 1 Patch TD Q72H Alprazolam 0.25 Mg Tablet 1 Tab PO DAILY17 [lidocaine patch 5% ] DAILY Dulcolax (Bisacodyl) 5 Mg Tablet.dr 5 Mg PO PRN DAILY PRN Melatonin 3 Mg Tablet 10 Mg PO DAILY Carvedilol 25 Mg Tablet 12.5 Mg PO BIDWMEALS Losartan Potassium 100 Mg Tablet 100 Mg PO DAILY Zoloft (Sertraline Hcl) 50 Mg Tablet 1 Tab PO DAILY Cyclobenzaprine Hcl 10 Mg Tablet 1 Tab PO BID Omeprazole 20 Mg Capsule.dr 1 Cap PO DAILY Albuterol Sulfate Conc Neb Soln (Albuterol Sulfate) 2.5 Mg/0.5 Ml Vial.neb 1 Vial NEB Q6HRS Vitamin D (Cholecalciferol (Vitamin D3)) 1,000 Unit Capsule 1 Cap PO DAILY Advair 250-50 Diskus (Fluticasone/Salmeterol) 1 Each Disk.w.dev 1 Puff IH BID Multi-Day Vitamins (Multivitamin) 1 Each Tablet 1 Tab PO DAILY Colace (Docusate Sodium) 100 Mg Capsule 100 Mg PO BID Vitals/I & O Vital Sign - Last 24 Hours 03/13/18 03/13/18 03/13/18 03/13/18 12:00 12:21 13:17 13:18 Temp 97.8 97.8 Pulse 77 Resp 18 16 B/P (MAP) 145/64 (91) 136/46 (76) 137/56 (83) Pulse Ox 96 O2 Delivery Nasal Cannula Nasal Cannula O2 Flow Rate 2.0 2.0 03/13/18 03/13/18 03/13/18 03/13/18 13:30 15:45 17:38 17:43 Temp 97.6 97.6 Pulse 82 82 Resp 20 B/P (MAP) 136/64 (88) 132/50 (77) 132/50 Pulse Ox 95 95 O2 Delivery Nasal Cannula Nasal Cannula O2 Flow Rate 2.0 2.0 03/13/18 03/13/18 03/13/18 03/13/18 19:55 20:00 20:50 20:54 Temp 98.0 98.0 Pulse 73 Resp 20 B/P (MAP) 126/56 (79) Pulse Ox 97 95 95 O2 Delivery Nasal Cannula Nasal Cannula Nasal Cannula Nasal Cannula O2 Flow Rate 2.0 2.0 2.0 2.0 03/13/18 03/14/18 03/14/18 03/14/18 23:48 04:32 07:52 07:59 Temp 97.9 98.0 97.6 97.9 98.0 97.6 Pulse 77 76 89 Resp 20 20 18 B/P (MAP) 148/40 (76) 130/50 (76) 177/68 (104) Pulse Ox 96 94 95 95 O2 Delivery Nasal Cannula Nasal Cannula Nasal Cannula Nasal Cannula O2 Flow Rate 2.0 2.0 2.0 2.0 03/14/18 08:46 Pulse 89 B/P (MAP) 177/68 Intake and Output 03/13/18 03/13/18 03/14/18 15:01 23:01 07:01 Intake Total 840 ml 100 ml Output Total 250 ml Balance 590 ml 100 ml JOVANY TY MD Mar 14, 2018 10:43
--- NOTE | 2018-03-14 10:43 | DISCH ---
DISCHARGE INSTRUCTIONS Condition on Discharge Condition on Discharge: Stable Activity After Discharge Activity Instructions for Disc: Activity as tolerated Driving Instructions after Dis: Do not drive Weight Bearing Status after Di: As tolerated Diet after Discharge Diet after Discharge: Diabetic No Calorie Level Diet Texture: Regular Liquid Texture: Thin Liquid Wound Incision Care Wound/Incision Care: Change dressing Wound Care Equipment: Dressings Checks after Discharge Checks after discharge: Weigh Yourself Daily Contacting the DR. after DC Call your doctor for: If your condition worsens Follow-Up Follow up with: dr. kimble next week Treatment/Equipment after DC Adaptive Equipment Issued: None, Wheelchair Discharge Respiratory Equipmen: Oxygen KARAN KIMBLE MD Mar 14, 2018 10:43
--- NOTE | 2018-03-14 10:49 | PDOC ---
Provider Note Provider Note discharge summary dictated # [id number] KARAN KIMBLE MD Mar 14, 2018 10:49
[2018-03-14 10:51] VITALS: BP 170/82
--- NOTE | 2018-03-14 11:14 | PDOC2 ---
CONSULT Date of Consult Date of Consult DATE: 03/14/18 TIME: 11:09 Reason for Consult Reason for Consult: Renal failure Identification/Chief Complaint Chief Complaint None this am Source Source: Chart review, Patient History of Present Illness Reason for Visit: The patient is an 87-year-old white female has chronic debility, chronic low back pain -she is on chronic narcotics She has diastolic heart failure, DM , HTN, COPD She fell on 02/23/2018, recently stated having headaches since that time and she went to the Er, Ct scan head was unremarkable, CAT scan of cervical spine, which showed spinal stenosis, but no acute fracture and she was sent home. She was back to ER- unresponsive at home, on Ambien and Narcotics at home,was hypotensive in ER blood pressure 55 systolic apparently in the field Her chest x-ray was unremarkable. Renal consulted for RANDAL She denies any Past hx of CKD, currently feeling fine, ready to go home No N/V/D . No urinary complaints Past Medical History Cardiovascular: CHF, HTN, Hyperlipidemia Pulmonary: COPD, Pneumonia, Other (sleep apnea) CENTRAL NERVOUS SYSTEM: Periperal neuropathy GI: Constipation, GERD, Hemorrhoids, Other (colonic polyps) Heme/Onc: Anemia NOS Psych: Anxiety, Depression Musculoskeletal: low back pain (lumbar and cervical spondylosis), Osteoarthritis Rheumatologic: Fibromyalgia, Gout Infectious disease: No pertinent hx Renal/: UTI Endocrine: Diabetes Dermatology: Cellulitis Past Surgical History Past Surgical History: Pacemaker, Cholecystectomy, Cataract Removal, Total hip replacement (right), Hysterectomy, Other (cardiac cath, bilateral rotator cuff) Family History Family History: Heart Disease Social History No ALCOHOL: none Drugs: None Lives: Alone Current Problem List Problem List Problems Medical Problems: (1) Altered mental status Status: Acute (2) Hx of hypotension Status: Acute (3) Opioid overdose Status: Acute Current Medications Current Medications Current Medications Naloxone HCl (Narcan) 1 mg 1X ONCE IV Last administered on 03/13/18at 01:17; Start 03/13/18 at 01:00; Stop 03/13/18 at 01:01; Status DC Ondansetron HCl (Zofran) 4 mg PRN Q8HRS PRN IV NAUSEA/VOMITING 1ST CHOICE; Start 03/13/18 at 02:00; Stop 03/13/18 at 10:45; Status DC Insulin Human Lispro (HumaLOG) 0-5 UNITS TIDWMEALS SQ ; Start 03/13/18 at 08:00 Dextrose (Dextrose 50%-Water Syringe) 12.5 gm PRN Q15MIN PRN IV SEE COMMENTS; Start 03/13/18 at 02:00 Naloxone HCl (Narcan) 1 mg PRN Q2HR PRN IV CONFUSION; Start 03/13/18 at 02:00 Bisacodyl (Dulcolax Tab) 5 mg PRN DAILY PRN PO CONSTIPATION 1ST CHOICE; Start 03/13/18 at 05:00 Cyclobenzaprine HCl (Flexeril) 10 mg BID PO Last administered on 03/13/18at 09:41 ; Start 03/13/18 at 09:00; Stop 03/13/18 at 10:53; Status DC Docusate Sodium (Colace) 100 mg BID PO Last administered on 03/14/18at 08:45; Start 03/13/18 at 09:00 Pregabalin (Lyrica) 75 mg BID PO Last administered on 03/13/18at 09:40; Start 03/13/18 at 09:00; Stop 03/13/18 at 10:53; Status DC Sertraline HCl (Zoloft) 50 mg DAILY PO Last administered on 03/14/18at 08:45; Start 03/13/18 at 09:00 Non-Formulary Medication (Albuterol Sulfate (Albuterol Sulfate Conc Neb Soln)) 1 vial Q6HRS NEB ; Start 03/13/18 at 06:00; Status UNV Carvedilol (Coreg) 12.5 mg BIDWMEALS PO Last administered on 03/14/18at 08:46; Start 03/13/18 at 08:00 Vitamin D (Vitamin D3) 1,000 unit DAILY PO Last administered on 03/14/18at 08:45 ; Start 03/13/18 at 09:00 Non-Formulary Medication (Fluticasone/ Salmeterol (Advair 250-50 Diskus)) 1 puff BID IH ; Start 03/13/18 at 09:00; Status UNV Losartan Potassium (Cozaar) 100 mg DAILY PO Last administered on 03/13/18at 09:40 ; Start 03/13/18 at 09:00; Stop 03/13/18 at 10:53; Status DC Non-Formulary Medication (Melatonin ) 10 mg DAILY PO ; Start 03/13/18 at 09:00; Status UNV Multivitamins (Thera M Plus) 1 tab DAILY PO Last administered on 03/14/18 08:45 ; Start 03/13/18 at 09:00 Pantoprazole Sodium (Protonix) 40 mg DAILYAC PO Last administered on 03/14/18 07:55; Start 03/13/18 at 07:30 Albuterol Sulfate (Ventolin Neb Soln) 2.5 mg RTQID NEB Last administered on 03/13 08:31; Start 03/13/18 at 08:00; Stop 03/13/18 at 10:53; Status DC Albuterol Sulfate (Ventolin Neb Soln) 2.5 mg PRN Q6HRS PRN NEB SHORTNESS OF BREATH Last administered on 03/14/18 07:51; Start 03/13/18 at 05:15 Budesonide (Pulmicort) 0.5 mg RTBID NEB Last administered on 03/14/18 07:51; Start 03/13/18 at 08:00 Acetaminophen (Tylenol) 325 mg PRN Q4HRS PRN PO MILD PAIN / TEMP Last administered on 03/13/18 20:31; Start 03/13/18 at 10:15 Alprazolam (Xanax) 0.25 mg DAILYWSUP PO Last administered on 03/13/18 17:42; Start 03/13/18 at 17:00 Fentanyl (Duragesic 12mcg/ Hr Patch) 1 patch Q72H TD Last administered on 12:21; Start 03/13/18 at 11:00 Acetaminophen/ Hydrocodone Bitart (Lortab 5/325) 1 tab PRN Q8HRS PRN PO MODERATE-SEVERE PAIN; Start 03/13/18 at 10:15; Stop 03/13/18 at 11:05; Status DC Zolpidem Tartrate (Ambien) 5 mg PRN QHS PRN PO INSOMNIA Last administered on 20:31; Start 03/13/18 at 10:15 Ondansetron HCl (Zofran) 4 mg PRN Q6HRS PRN IV NAUSEA/VOMITING; Start 03/13/18 at 10:15 Albuterol Sulfate (Ventolin Neb Soln) 2.5 mg RTQID PRN NEB SHORTNESS OF BREATH ; Start 03/13/18 at 11:00 Pregabalin (Lyrica) 50 mg BID PO Last administered on 03/14/18at 08:46; Start 03/13/18 at 21:00 Acetaminophen/ Hydrocodone Bitart (Lortab 5/325) 1 tab PRN TID PRN PO MODERATE- SEVERE PAIN; Start 03/13/18 at 11:15 Perflutren Protein Type A Microsphe (Optison) 0.66 mg STK-MED ONCE IV ; Start at 11:14; Stop 03/13/18 at 11:16; Status DC Perflutren Protein Type A Microsphe (Optison) 0.66 mg PRN 1X PRN IV SEE COMMENTS Last administered on 03/13/18at 12:00; Start 03/13/18 at 12:00; Stop at 11:59 Active Scripts Active Lyrica (Pregabalin) 50 Mg Capsule 50 Mg PO BID Reported Duoneb 0.5-3(2.5) Mg/3 Ml (Albuterol/Ipratropium) 3 Ml Ampul.neb 3 Ml NEB PRN Q4HRS PRN Tylenol (Acetaminophen) 325 Mg Tablet 1 Tab PO PRN Q4HRS Ambien (Zolpidem Tartrate) 5 Mg Tablet 5 Mg PO PRN QHS PRN Hydrocodone-Apap 5-325 (Hydrocodone Bit/Acetaminophen) 1 Tab Tablet 1 Tab PO PRN Q8HRS PRN Alprazolam 0.25 Mg Tablet 1 Tab PO DAILY17 Melatonin 3 Mg Tablet 10 Mg PO DAILY Carvedilol 25 Mg Tablet 12.5 Mg PO BIDWMEALS Zoloft (Sertraline Hcl) 50 Mg Tablet 1 Tab PO DAILY Omeprazole 20 Mg Capsule. 1 Cap PO DAILY Vitamin D (Cholecalciferol (Vitamin D3)) 1,000 Unit Capsule 1 Cap PO DAILY Advair 250-50 Diskus (Fluticasone/Salmeterol) 1 Each Disk.w.dev 1 Puff IH BID Multi-Day Vitamins (Multivitamin) 1 Each Tablet 1 Tab PO DAILY Colace (Docusate Sodium) 100 Mg Capsule 100 Mg PO BID Allergies Allergies: Coded Allergies: Iodinated Contrast- Oral and IV Dye (Verified Allergy, Intermediate, Itching, 07/31/17) amlodipine (Verified Allergy, Intermediate, 03/14/18) doxazosin (Verified Allergy, Intermediate, 03/14/18) lisinopril (Verified Allergy, Intermediate, 03/14/18) niacin (Verified Allergy, Intermediate, 03/14/18) I S O L A T I O N *CONTACT* (Verified Allergy, Unknown, 07/31/17) mrsa screen + atorvastatin (Verified Adverse Reaction, Intermediate, 03/14/18) clonidine (Verified Adverse Reaction, Intermediate, 03/14/18) fluvastatin (Verified Adverse Reaction, Intermediate, 03/14/18) lovastatin (Verified Adverse Reaction, Intermediate, 03/14/18) nifedipine (Verified Adverse Reaction, Intermediate, 03/14/18) rosuvastatin (Verified Adverse Reaction, Intermediate, 03/14/18) ROS Review of System As per HPI Physical Exam Physical Exam GEN: NAD HEENT- OM moist Neck Supple CVS: RRR Lungs- - CTA, No use of access muscles GI: NT : No Gray, No CVA or SP tenderness Neuro Normal Skin No rash Ext- No edema Vital Signs Vital Signs Date Time Temp Pulse Resp B/P (MAP) Pulse Ox O2 Delivery O2 Flow Rate FiO2 03/14/18 10:51 98.3 94 17 170/82 (111) 96 Nasal Cannula 2.0 98.3 Assessment & Plan RANDAL - baseline appears to be Normal Creat Etiology Pre-renal/Dehydration Improving with IVF No labs today Getting dced- recommend fu BMP with PCP in 5-7 days Recommend follow up with our office [facility] In June as well CKD stage 2/3- may be her baseline Has DM and HTN Right renal lower pole caliectasis is present. Right renal superior pole complex cyst cystic structure measuring up to 2.17 x 1.5 cm is present On US- a sper pt has been there for 4 yrs or More Defer to primary , if new will need follow up with Urology Discussed above with Pt and RN Labs Labs Laboratory Tests Test 03/13/18 01:10 03/13/18 05:00 03/13/18 05:05 03/13/18 07:45 White Blood Count 7.0 x10^3/uL (4.0-11.0) Red Blood Count 4.77 x10^6/uL (3.50-5.40) Hemoglobin 13.6 g/dL (12.0-15.5) Hematocrit 42.4 % (36.0-47.0) Mean Corpuscular Volume 89 fL (79-100) Mean Corpuscular Hemoglobin 29 pg (25-35) Mean Corpuscular Hemoglobin Concent 32 g/dL (31-37) Red Cell Distribution Width 14.7 % (11.5-14.5) Platelet Count 178 x10^3/uL (140-400) Neutrophils (%) (Auto) 74 % (31-73) Lymphocytes (%) (Auto) 18 % (24-48) Monocytes (%) (Auto) 6 % (0-9) Eosinophils (%) (Auto) 2 % (0-3) Basophils (%) (Auto) 0 % (0-3) Neutrophils # (Auto) 5.2 x10^3uL (1.8-7.7) Lymphocytes # (Auto) 1.2 x10^3/uL (1.0-4.8) Monocytes # (Auto) 0.4 x10^3/uL (0.0-1.1) Eosinophils # (Auto) 0.1 x10^3/uL (0.0-0.7) Basophils # (Auto) 0.0 x10^3/uL (0.0-0.2) Prothrombin Time 13.4 SEC (11.7-14.0) Prothromb Time International Ratio 1.1 (0.8-1.1) Activated Partial Thromboplast Time 26 SEC (24-38) Sodium Level 138 mmol/L (136-145) Potassium Level 3.6 mmol/L (3.5-5.1) Chloride Level 97 mmol/L (98-107) Carbon Dioxide Level 31 mmol/L (21-32) Anion Gap 10 (6-14) Blood Urea Nitrogen 16 mg/dL (7-20) Creatinine 1.8 mg/dL (0.6-1.0) Estimated GFR (Cockcroft-Gault) 26.7 BUN/Creatinine Ratio 9 (6-20) Glucose Level 136 mg/dL (70-99) Lactic Acid Level 2.0 mmol/L (0.4-2.0) Calcium Level 9.3 mg/dL (8.5-10.1) Magnesium Level 1.9 mg/dL (1.8-2.4) Total Bilirubin 0.6 mg/dL (0.2-1.0) Aspartate Amino Transf (AST/SGOT) 25 U/L (15-37) Alanine Aminotransferase (ALT/SGPT) 19 U/L (14-59) Alkaline Phosphatase 78 U/L (46-116) Ammonia < 10 mcmol/L (11-34) Creatine Kinase 177 U/L (26-192) Creatine Kinase MB (Mass) 2.4 ng/mL (0.0-3.6) Creatine Kinase MB Relative Index 1.4 % (0-4) Troponin I Quantitative 0.027 ng/mL (0.000-0.055) 0.033 ng/mL (0.000-0.055) Total Protein 7.4 g/dL (6.4-8.2) Albumin 3.5 g/dL (3.4-5.0) Albumin/Globulin Ratio 0.9 (1.0-1.7) Ethyl Alcohol Level < 10 mg/dL (0-10) Nasal Screen MRSA (PCR) Positive (Negative) Glucose (Fingerstick) 88 mg/dL (70-99) Test 03/13/18 07:58 03/13/18 12:17 03/13/18 16:57 03/13/18 20:31 Sodium Level 136 mmol/L (136-145) Potassium Level 3.5 mmol/L (3.5-5.1) Chloride Level 100 mmol/L (98-107) Carbon Dioxide Level 28 mmol/L (21-32) Anion Gap 8 (6-14) Blood Urea Nitrogen 17 mg/dL (7-20) Creatinine 1.6 mg/dL (0.6-1.0) Estimated GFR (Cockcroft-Gault) 30.6 Glucose Level 113 mg/dL (70-99) Calcium Level 9.2 mg/dL (8.5-10.1) Troponin I Quantitative 0.025 ng/mL (0.000-0.055) Glucose (Fingerstick) 95 mg/dL (70-99) 116 mg/dL (70-99) 119 mg/dL (70-99) Test 03/14/18 04:05 03/14/18 07:49 Erythrocyte Sedimentation Rate 18 (0-25) Vitamin B12 Level 1745 pg/mL (247-911) Glucose (Fingerstick) 99 mg/dL (70-99) Laboratory Tests Test 03/13/18 12:17 03/13/18 16:57 03/13/18 20:31 03/14/18 04:05 Glucose (Fingerstick) 95 mg/dL (70-99) 116 mg/dL (70-99) 119 mg/dL (70-99) Erythrocyte Sedimentation Rate 18 (0-25) Vitamin B12 Level 1745 pg/mL (247-911) Test 03/14/18 07:49 Glucose (Fingerstick) 99 mg/dL (70-99) Review All relevant outside records, renal labs, imaging studies, telemetry/EKG's were reviewed. Images Images Renal US-- Right kidney measures 10 cm x 5.16 x 4.6 cm. Left kidney measures 10.2 cm x 5.17 x 4.5 cm. Renal cortical echotexture and contours are normal. No evidence of nephrolithiasis. Right renal lower pole caliectasis is present. Right renal superior pole complex cyst cystic structure measuring up to 2.17 x 1.5 cm is present. Urinary bladder is unremarkable. Bilateral ureteral jets are present. Prevoid urinary bladder volume is 387 cc. Atherocalcific involvement of the aorta is present. Inferior vena cava and proximal aorta are partially obscured by bowel gas. Mid abdominal aortic diameter of 1.7 cm noted. Impression: Right lower pole caliectasis. This finding is new upon correlation with previous examination reports. Correlate clinically in determining further evaluation. CINTIA WATTS MD Mar 14, 2018 11:14
--- NOTE | 2018-03-14 11:29 | DS ---
DATE OF DISCHARGE: 03/14/2018 CONSULTANTS: Include Dr. Cruz and Dr. Serrano. FINAL DIAGNOSES: 1. Vasovagal syncopal episode. 2. Toxic encephalopathy, resolved. 3. Diabetes mellitus type 2 with peripheral neuropathy. 4. Hypertension. 5. Hyperlipidemia. 6. Chronic hypoxic respiratory failure. 7. Chronic obstructive pulmonary disease. 8. Chronic diastolic congestive heart failure. 9. 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 10. Debility. 11. Cervical spinal stenosis. 12. Acute kidney injury. HOSPITAL COURSE: The patient is an 87-year-old white female who lives at home with 24-hour assistance, confined to a wheelchair, who has chronic debility and chronic low back pain, on chronic narcotics, who has a history of chronic diastolic congestive heart failure, diabetes mellitus type 2 with peripheral neuropathy, hypertension, hyperlipidemia, COPD, chronic hypoxic respiratory failure and had a fall on 02/23/2018. She had some headache subsequent to that. She went to the Emergency Room yesterday morning and CAT scan of the head was unremarkable. She was sent home. Last evening prior to admission, she was sitting on the commode and was unresponsive. She got a usual dose of Ambien and hydrocodone at night and EMT came and gave her Narcan and she became more responsive. She was hypotensive with a blood pressure of 55 in the field and then she came to the Emergency Room. Blood pressure eventually increased to the higher levels. In fact, her systolic was on the high side. CAT scan of the head and cervical spine was negative as mentioned except for cervical spinal stenosis. No acute fracture. Her urine drug screen was positive for benzodiazepine and opiates, which she does take. Chest x-ray was unremarkable. Echocardiogram showed preserved left ventricular ejection fraction with a biventricular pacemaker and moderate pulmonary hypertension. She was seen in consultation by Dr. Cruz and was felt to have a vasovagal syncopal episode. She was seen by Dr. Serrano for Neurology, who concurred. The patient does need chronic narcotics, but the doses were decreased by 50%. The fentanyl was decreased from 25 mcg every 72 hours to 12 mcg every 72 hours, hydrocodone was decreased from 10/325 one tablet t.i.d. p.r.n. to 5 mg t.i.d. p.r.n., Xanax was decreased to just 0.25 mg at 5 p.m. and then the dose at bedtime was discontinued. Lyrica was decreased to 50 mg b.i.d. from 75 mg b.i.d. Her losartan was discontinued as her serum creatinine increased to 1.5-1.6 and she was just treated with carvedilol. She had an ultrasound of her kidneys, which did not show any hydronephrosis. She did have caliectasis involving the right renal lower pole, but there was no hydronephrosis seen. In reviewing her laboratory test, her serum creatinine was 1.6. Nephrology consult was ordered, but the patient was never seen by the equine intern and the patient wanted to go home today. She therefore will be dismissed to home on fentanyl patch 12 mcg every 72 hours, 10 patches, no refill; Ambien 5 mg at bedtime p.r.n., 30 tablets, no refill; [place] 5/325 one tablet t.i.d. p.r.n. for severe pain, 90 tablets, no refill; Lyrica 50 mg 1 b.i.d., 60 tablets, 2 refills; carvedilol 12.5 mg b.i.d., 60 tablets and 2 refills. The patient will also be dismissed on Advair 250/50 mcg 1 puff b.i.d., albuterol nebulized treatments every 4 hours p.r.n. She will discontinue 0.5 mg of Xanax at bedtime. Continue the Colace 100 mg b.i.d., discontinue the Flexeril. Continue with the melatonin, I think the dose actually was 5 mg at bedtime, not 10 and she will also continue with omeprazole 20 mg b.i.d., Plaquenil 200 mg b.i.d., sertraline 50 mg every day, vitamin D 1000 units every day. Make an appointment to see Dr. Castelan in the office next week. KARAN CASTELAN MD DR: KATHY/ben JOB#: [id number] / [id number]
--- NOTE | 2018-03-14 12:32 | NUR ---
Discharge Note: SYBIL AUGUSTINE [address] [place] [address] Discharge instructions and discharge home medications reviewed with Patient and a copy given. All questions have been answered and understanding verbalized. The following instructions and handouts were given: Diet, activity, medication list and follow up instructions provided to patient and caregiver. Discontinued lines and drains: Peripheral IV discontinued and catheter intact. Patient discharged to Home w/services with Primary Tax Manager via Wheelchair
[2018-03-16 14:25] LABS: ALBUM 3.3 g/dL (2.9-4.4); ALPHA 1 0.2 g/dL (0.0-0.4); ALPHA 2 0.8 g/dL (0.4-1.0); BETA 0.9 g/dL (0.7-1.3); GAMMA 1.1 g/dL (0.4-1.8); PROTEIN TOTAL 6.3 g/dL (6.0-8.5); SPEP AG RATIO 1.1 (0.7-1.7)
[2018-03-16 16:16] LABS: ANA INTERP Negative (.)
[2018-06-04] MEDS ORDERED: LIDO700A21 TP (14:49)
== END 2018-03-14 12:00 | disposition home health service (06) | DRG 917 ==
LOC: ER 23:48 → 1 WEST ICU 03-13 01:45 → 6 SOUTH 03-13 13:54
PROVIDERS: ADMIT Internal Medicine; ATTEND Internal Medicine
PROC: 4B02XSZ Measurement of Cardiac Pacemaker, External Approach (ICD-10-PCS; principal; 2018-03-13)
DX: T40.2X1A Poisoning by other opioids, accidental (unintentional), initial encounter (principal); G92 Toxic encephalopathy; J96.11 Chronic respiratory failure with hypoxia; I50.32 Chronic diastolic (congestive) heart failure; I13.0 Hypertensive heart and chronic kidney disease with heart failure and stage 1 through stage 4 chronic kidney disease, or unspecified chronic kidney disease; N17.9 Acute kidney failure, unspecified; E11.42 Type 2 diabetes mellitus with diabetic polyneuropathy; E11.22 Type 2 diabetes mellitus with diabetic chronic kidney disease; J44.9 Chronic obstructive pulmonary disease, unspecified; M47.816 Spondylosis without myelopathy or radiculopathy, lumbar region; G89.29 Other chronic pain; M48.02 Spinal stenosis, cervical region; E78.5 Hyperlipidemia, unspecified; M47.812 Spondylosis without myelopathy or radiculopathy, cervical region; F07.81 Postconcussional syndrome; G47.30 Sleep apnea, unspecified; I25.10 Atherosclerotic heart disease of native coronary artery without angina pectoris; I27.20 Pulmonary hypertension, unspecified; K21.9 Gastro-esophageal reflux disease without esophagitis; M79.7 Fibromyalgia; N18.9 Chronic kidney disease, unspecified; Z96.641 Presence of right artificial hip joint; F32.9 Major depressive disorder, single episode, unspecified; F41.9 Anxiety disorder, unspecified; M19.90 Unspecified osteoarthritis, unspecified site; M10.9 Gout, unspecified; Z17.1 Estrogen receptor negative status [ER-]; Z79.891 Long term (current) use of opiate analgesic; Z80.8 Family history of malignant neoplasm of other organs or systems; Z82.49 Family history of ischemic heart disease and other diseases of the circulatory system; Z90.49 Acquired absence of other specified parts of digestive tract; Z86.010 Personal history of colon polyps; Z90.710 Acquired absence of both cervix and uterus; Z91.81 History of falling; Z95.0 Presence of cardiac pacemaker; Z99.3 Dependence on wheelchair; Z87.01 Personal history of pneumonia (recurrent); Z87.440 Personal history of urinary (tract) infections; Z87.81 Personal history of (healed) traumatic fracture; Z88.8 Allergy status to other drugs, medicaments and biological substances; Z88.6 Allergy status to analgesic agent; Z88.1 Allergy status to other antibiotic agents; Z91.041 Radiographic dye allergy status; Y92.89 Other specified places as the place of occurrence of the external cause
CPT/HCPCS: 99285; C8929; 36415; 70450; 71045; 72125; 76770; 80048; 80053; 80307; 81001; 82140; 82550; 82553; 82607; 82962; 83605; 83735; 83880; 84165; 84484; 85025; 85610; 85651; 85730; 86038; 87086; 87641; 93005; 94640; 94760; 96374; G0480; J1815; J2310; J7613; J7626; Q9956; G0378

== ENCOUNTER → 2018-04-30 | Outpatient (CLI) | payer MEDICARE ==
[~2018-04-30] MED LIST changes: +ACET325T9 PO; +AMLO5TAB10 PO; +AMOX1TAB11 PO; +ASPI-612 PO; +CARV25TA PO; +CARV25TA2 PO; +FENT1PAT13 TD; +HYDR-2761 PO; +IPRA3AMP29 NEB; -LIDO700A21 TP; +LIDO700A39 TP; +LOSA100T14 PO; +PREG50CA PO; +SENN-80 PO; +SERT100T PO; +SERT50TA PO; +lidocaine patch 5%
--- NOTE | 2018-04-30 16:54 | RAD ---
EXAM: Chest, single view. HISTORY: Nonproductive cough. COMPARISON: 03/12/2018 FINDINGS: A frontal view of the chest is obtained. There is slight increased left lung interstitial opacity. There is no consolidation, pleural effusion or pneumothorax. The heart is normal in size. There is a cardiac pacemaker with leads overlying expected position. There is a suspected small left shoulder joint loose body. IMPRESSION: Slight increased left lung interstitial opacity due to atelectasis or interstitial infiltrate. No consolidated pneumonia is seen. Electronically signed by: Ina King MD (04/30/2018 4:52 PM) [place] [id number]
== END | disposition home or self-care (01) ==
LOC: RAD 16:08
PROVIDERS: ATTEND Internal Medicine
DX: R05 Cough (principal); Z95.0 Presence of cardiac pacemaker
CPT/HCPCS: 71045

== ENCOUNTER 2018-05-20 13:50 | Emergency (ER) | payer MEDICARE ==
[~2018-05-20] VITALS: Ht 152.4 cm; Wt 68.0 kg
[~2018-05-20 13:50] MED LIST changes: -AMLO5TAB10 PO; -AMOX1TAB11 PO; -ASPI-612 PO; -CARV25TA PO; -SENN-80 PO; -SERT100T PO
--- NOTE | 2018-05-20 14:32 | RAD ---
EXAM: Chest, single view. HISTORY: Left-sided numbness. Hypertension. COMPARISON: 04/30/2018. FINDINGS: A frontal view of the chest is obtained. There is stable diffuse increased interstitial opacity. There is no consolidation, pleural effusion or pneumothorax. There is stable cardiac silhouette and there are stable cardiac pacemaker leads. There are healed rib fractures. IMPRESSION: Stable diffuse interstitial prominence without mohan congestion. Electronically signed by: Ina King MD (05/20/2018 2:29 PM) [id number]
[2018-05-20 14:53] LABS: BASO % 0 % (0-3); EOS # 0.1 x10^3/uL (0.0-0.7); EOS % 2 % (0-3); HEMATOCRIT 36.4 % (36.0-47.0); HEMOGLOBIN 11.5 g/dL (12.0-15.5); LYMPH # 1.2 x10^3/uL (1.0-4.8); LYMPH % 18 % (24-48); MEAN CORPUSCULAR HEMOGLOBIN 28 pg (25-35); MEAN CORPUSCULAR HGB CONC 32 g/dL (31-37); MEAN CORPUSCULAR VOLUME 88 fL (79-100); MONO # 0.5 x10^3/uL (0.0-1.1); MONO % 7 % (0-9); NEUT # 4.8 x10^3uL (1.8-7.7); NEUT % 72 % (31-73); PLATELET COUNT 178 x10^3/uL (140-400); RED BLOOD COUNT 4.15 x10^6/uL (3.50-5.40); RED CELL DISTRIBUTION WIDTH 14.2 % (11.5-14.5); WHITE BLOOD COUNT 6.7 x10^3/uL (4.0-11.0)
--- NOTE | 2018-05-20 14:58 | RAD ---
CT brain without contrast. HISTORY: Neurologic deficit, facial and upper extremity numbness CT scan of brain was done without contrast. Comparison is made to study from March 13. There is no intracranial hemorrhage or subdural hematoma. Ventricles are normal in size. There is no mass or shift of the midline. There is decreased density in the periventricular white matter consistent with chronic microvascular changes without significant change from the prior study. An acute CVA is not identified. Visualized sinuses are clear. IMPRESSION: 1. No intracranial hemorrhage or mass or acute finding noted. 2. Chronic white matter changes. Electronically signed by: Kavon Huynh MD (05/20/2018 2:55 PM) [id number]
[2018-05-20 15:01] LABS: CALCIUM 8.7 mg/dL (8.5-10.1); GFR 52.6; POTASSIUM 5.6 mmol/L (3.5-5.1)
[2018-05-20 15:02] LABS: PROTHROMBIN TIME PATIENT 13.8 SEC (11.7-14.0)
[2018-05-20 15:08] LABS: ALBUMIN 3.2 g/dL (3.4-5.0); ALBUMIN/GLOBULIN RATIO 0.8 (1.0-1.7); MAGNESIUM 2.1 mg/dL (1.8-2.4); TOTAL BILIRUBIN 0.2 mg/dL (0.2-1.0); TOTAL PROTEIN 7.3 g/dL (6.4-8.2)
[2018-05-20] MEDS ORDERED: ALBUTEROL SULFATE 2.5 MG/3 ML NEBU. CONT NEB ONE (15:30)
--- NOTE | 2018-05-20 16:02 | EKG ---
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
--- NOTE | 2018-05-20 17:07 | PHYS DOC ---
Past Medical History Past Medical History: Arthritis, CAD, CHF, Constipation, COPD, Depression, Diabetes-Type II, Fibromyalgia, GERD, Hypertension, Pneumonia, UTI, Other Additional Past Medical Histor: NEUROPATHY Past Surgical History: Appendectomy, Cholecystectomy, Hysterectomy, Pacemaker, Other Additional Past Surgical Histo: NECK/BACK,HIP,EYE,CARPAL TUNNEL Alcohol Use: None Drug Use: None Adult General Chief Complaint Chief Complaint: NEURO SYMPTOMS/DEFICITS [facility] HPI Patient is a 87 year old female who presents with complaining of left arm numbness. Patient states her physician changed her blood pressure medication recently and she had right upper extremity numbness few days ago that improved. Patient states she had left upper extremity numbness since last night that did not get better. Patient complaining of painful movement of left upper extremity weakness. Patient denies chest pain, shortness of breath, nausea and vomiting, urinary symptom, fever and chills. Review of Systems Review of Systems Constitutional: Denies fever or chills [] Eyes: Denies change in visual acuity, redness, or eye pain [] HENT: Denies nasal congestion or sore throat [] Respiratory: Denies cough or shortness of breath [] Cardiovascular: No additional information not addressed in HPI [] GI: Denies abdominal pain, nausea, vomiting, bloody stools or diarrhea [] : Denies dysuria or hematuria [] Musculoskeletal: Denies back pain or joint pain [] Integument: Denies rash or skin lesions [] Neurologic: Denies headache, focal weakness, reports sensory changes [] Endocrine: Denies polyuria or polydipsia [] All other systems were reviewed and found to be within normal limits, except as documented in this note. Current Medications Current Medications Current Medications Medications (Trade) Dose Ordered Sig/Lindsey Start Time Stop Time Status Last Admin Dose Admin Albuterol Sulfate (Ventolin Neb Soln) 10 mg 1X ONCE 05/20/18 15:30 05/20/18 15:31 DC 05/20/18 15:42 10 MG Sodium Polystyrene Sulfonate (Kayexalate) 30 gm 1X ONCE 05/20/18 17:15 05/20/18 17:16 DC 05/20/18 17:57 30 GM Allergies Allergies Allergies Coded Allergies Type Severity Reaction Last Updated Verified Iodinated Contrast- Oral and IV Dye Allergy Intermediate Itching 07/31/17 Yes amlodipine Allergy Intermediate 03/14/18 Yes doxazosin Allergy Intermediate 03/14/18 Yes lisinopril Allergy Intermediate 03/14/18 Yes niacin Allergy Intermediate 03/14/18 Yes I S O L A T I O N *CONTACT* Allergy Unknown 07/31/17 Yes atorvastatin Adverse Reaction Intermediate 03/14/18 Yes clonidine Adverse Reaction Intermediate 03/14/18 Yes fluvastatin Adverse Reaction Intermediate 03/14/18 Yes lovastatin Adverse Reaction Intermediate 03/14/18 Yes nifedipine Adverse Reaction Intermediate 03/14/18 Yes rosuvastatin Adverse Reaction Intermediate 03/14/18 Yes Physical Exam Physical Exam Constitutional: Well nourished, milddistress, non-toxic appearance. [] HENT: Normocephalic, atraumatic, bilateral external ears normal, oropharynx moist, no oral exudates, nose normal. [] Eyes: PERRLA, EOMI, conjunctiva normal, no discharge. [] Neck: Normal range of motion, no tenderness, supple, no stridor. [] Cardiovascular:Heart rate regular rhythm, no murmur [] Lungs & Thorax: Bilateral breath sounds clear to auscultation [] Abdomen: Bowel sounds normal, soft, no tenderness, no masses, no pulsatile masses. [] Skin: Warm, dry, no erythema, no rash. [] Back: No tenderness, no CVA tenderness. [] Extremities: No tenderness, no cyanosis, no clubbing, ROM intact, no edema. [] Neurologic: Alert and oriented X 3, normal motor function, normal sensory function, no left upper extremity paresthesia, no focal deficits noted. [] Psychologic: Affect anxious, judgement normal, mood normal. [] Current Patient Data Vital Signs Vital Signs Date Time Temp Pulse Resp B/P (MAP) Pulse Ox O2 Delivery O2 Flow Rate FiO2 05/20/18 17:30 64 16 100 05/20/18 15:42 Nasal Cannula 3.0 05/20/18 14:00 98.2 151/63 (92) 98.2 Lab Values Laboratory Tests Test 05/20/18 14:16 05/20/18 14:43 Glucose (Fingerstick) 108 mg/dL (70-99) H White Blood Count 6.7 x10^3/uL (4.0-11.0) Red Blood Count 4.15 x10^6/uL (3.50-5.40) Hemoglobin 11.5 g/dL (12.0-15.5) L Hematocrit 36.4 % (36.0-47.0) Mean Corpuscular Volume 88 fL (79-100) Mean Corpuscular Hemoglobin 28 pg (25-35) Mean Corpuscular Hemoglobin Concent 32 g/dL (31-37) Red Cell Distribution Width 14.2 % (11.5-14.5) Platelet Count 178 x10^3/uL (140-400) Neutrophils (%) (Auto) 72 % (31-73) Lymphocytes (%) (Auto) 18 % (24-48) L Monocytes (%) (Auto) 7 % (0-9) Eosinophils (%) (Auto) 2 % (0-3) Basophils (%) (Auto) 0 % (0-3) Neutrophils # (Auto) 4.8 x10^3uL (1.8-7.7) Lymphocytes # (Auto) 1.2 x10^3/uL (1.0-4.8) Monocytes # (Auto) 0.5 x10^3/uL (0.0-1.1) Eosinophils # (Auto) 0.1 x10^3/uL (0.0-0.7) Basophils # (Auto) 0.0 x10^3/uL (0.0-0.2) Prothrombin Time 13.8 SEC (11.7-14.0) Prothrombin Time INR 1.1 (0.8-1.1) PTT 30 SEC (24-38) Sodium Level 140 mmol/L (136-145) Potassium Level 5.6 mmol/L (3.5-5.1) H Chloride Level 102 mmol/L (98-107) Carbon Dioxide Level 32 mmol/L (21-32) Anion Gap 6 (6-14) Blood Urea Nitrogen 22 mg/dL (7-20) H Creatinine 1.0 mg/dL (0.6-1.0) Estimated GFR (Cockcroft-Gault) 52.6 BUN/Creatinine Ratio 22 (6-20) H Glucose Level 117 mg/dL (70-99) H Lactic Acid Level 0.8 mmol/L (0.4-2.0) Calcium Level 8.7 mg/dL (8.5-10.1) Magnesium Level 2.1 mg/dL (1.8-2.4) Total Bilirubin 0.2 mg/dL (0.2-1.0) Aspartate Amino Transferase (AST) 24 U/L (15-37) Alanine Aminotransferase (ALT) 16 U/L (14-59) Alkaline Phosphatase 79 U/L (46-116) Troponin I Quantitative < 0.017 ng/mL (0.000-0.055) PA-Ryx-H-Type Natriuretic Peptide 1143 pg/mL (0-449) H Total Protein 7.3 g/dL (6.4-8.2) Albumin 3.2 g/dL (3.4-5.0) L Albumin/Globulin Ratio 0.8 (1.0-1.7) L Laboratory Tests 05/20/18 14:43 Laboratory Tests 05/20/18 14:43 EKG EKG EKG interpreted by me. EKG at 1415 showed normal sinus rhythm at rate of 60, abnormal left axis deviation, ST and T wave abnormalities unchanged from previous EKG dated 03/12/2018, LVH, no acute ST and T-wave abnormalities. Radiology/Procedures Radiology/Procedures [][facility] [address] [place] [address] IMAGING REPORT Signed PATIENT: SYBIL AUGUSTINE ACCOUNT: [id number] : 1930 LOCATION: ER AGE: 87 SEX: F EXAM STATUS: PRE ER ORD. PHYSICIAN: REYES GARZA MD REASON: acute neurodeficit PROCEDURE: PORTABLE CHEST 1V EXAM: Chest, single view. HISTORY: Left-sided numbness. Hypertension. COMPARISON: 04/30/2018. FINDINGS: A frontal view of the chest is obtained. There is stable diffuse increased interstitial opacity. There is no consolidation, pleural effusion or pneumothorax. There is stable cardiac silhouette and there are stable cardiac pacemaker leads. There are healed rib fractures. IMPRESSION: Stable diffuse interstitial prominence without mohan congestion. Electronically signed by: Ina Purcell MD (05/20/2018 2:29 PM) [facility] DICTATED and SIGNED BY: INA PURCELL MD DATE: 05/20/18 6480 [facility] [address] [place] [address] IMAGING REPORT Signed PATIENT: SYBIL AUGUSTINE ACCOUNT: [id number] : 1930 LOCATION: ER AGE: 87 SEX: F EXAM STATUS: PRE ER ORD. PHYSICIAN: REYES GARZA MD REASON: acute neurodeficit PROCEDURE: CT HEAD WO CONTRAST CT brain without contrast. HISTORY: Neurologic deficit, facial and upper extremity numbness CT scan of brain was done without contrast. Comparison is made to study from March 13. There is no intracranial hemorrhage or subdural hematoma. Ventricles are normal in size. There is no mass or shift of the midline. There is decreased density in the periventricular white matter consistent with chronic microvascular changes without significant change from the prior study. An acute CVA is not identified. Visualized sinuses are clear. IMPRESSION: 1. No intracranial hemorrhage or mass or acute finding noted. 2. Chronic white matter changes. Electronically signed by: Kavon Huynh MD (05/20/2018 2:55 PM) [facility] DICTATED and SIGNED BY: KAVON HUYNH MD DATE: 05/20/18 145 Course & Med Decision Making Course & Med Decision Making Pertinent Labs and Imaging studies reviewed. (See chart for details) Evaluation of patient in ER showed 87-year-old female patient with complaining of left upper extremity paresthesia since yesterday that resolved in emergency room. Patient had unremarkable physical exam and CT head. Labs showed mild hypokalemia at 5.6 and patient treated with albuterol inhaler and Kayexalate. She also had mild elevation of BUN/creatinine BNP. Patient ambulated without problem. Patient did not want to wait to have urine test. Dr. Castelan, patient' s primary care physician was consulted at 1709 and he recommended to discharge patient home with follow-up with his office tomorrow. He reviewed the list of patient medication and stated patient is not on potassium supplement or potassium retaining medication. Dragon Disclaimer Dragon Disclaimer This electronic medical record was generated, in whole or in part, using a voice recognition dictation system. Departure Departure Impression: Primary Impression: Paresthesia Additional Impressions: Hypokalemia Renal insufficiency CHF (congestive heart failure) Disposition: HOME, SELF-CARE (at 1752) Condition: IMPROVED Referrals: KARAN CASTELAN MD (PCP) Patient Instructions: Hyperkalemia, Paresthesia Additional Instructions: Drink plenty of liquids Follow-up with your primary care physician tomorrow. Return to ER if not getting better NIHSS Stroke Scale NIH Stroke Scale: NIH Stroke Scale Response (Comments) Value Level of Consciousness: 0 Alert/Responsive 0 LOC Questions: 0 Answers both correctly 0 LOC Commands: 0 Performs both tasks 0 Best Gaze: 0 Normal 0 Visual: 0 No visual loss 0 Facial Palsy: 0 Normal, symmetrical 0 Motor - Left Arm 0 No drift 0 Motor - Right Arm 0 No drift 0 Motor - Left Leg 0 No drift 0 Motor: Right Leg 0 No drift 0 Limb Ataxia: 0 Absent 0 Sensory: 0 No loss 0 Best Language: 0 Normal 0 Dysathria: 0 Normal 0 Extinction and Inattention: 0 Normal 0 Total 0 Problem Qualifiers REYES GARZA MD May 20, 2018 17:07
[2018-05-20] MEDS ORDERED: SODIUM POLYSTYRENE SULFONATE 15 GM/60 ML ORAL.SUSP. PO ONE (17:15)
[2018-05-20 17:30] VITALS: BP 139/61
[2018-06-07] MEDS ORDERED: PRED20TA PO (13:17)
[2018-06-07] MEDS ORDERED: AMOX1TAB11 PO (13:17)
[2018-06-07] MEDS ORDERED: ASPI-612 PO (13:17)
== END 2018-05-20 18:04 | disposition home or self-care (01) ==
LOC: ER 13:50
DX: I11.0 Hypertensive heart disease with heart failure (principal); I50.9 Heart failure, unspecified; R20.2 Paresthesia of skin; E87.6 Hypokalemia; N28.9 Disorder of kidney and ureter, unspecified; E11.40 Type 2 diabetes mellitus with diabetic neuropathy, unspecified; I25.10 Atherosclerotic heart disease of native coronary artery without angina pectoris; K21.9 Gastro-esophageal reflux disease without esophagitis; J44.9 Chronic obstructive pulmonary disease, unspecified; Z90.89 Acquired absence of other organs; Z90.710 Acquired absence of both cervix and uterus; Z90.49 Acquired absence of other specified parts of digestive tract; Z95.0 Presence of cardiac pacemaker; Z91.041 Radiographic dye allergy status; Z91.040 Latex allergy status; Z88.6 Allergy status to analgesic agent; Z88.8 Allergy status to other drugs, medicaments and biological substances
CPT/HCPCS: 36415; 70450; 71045; 80053; 82962; 83605; 83735; 83880; 84484; 85025; 85610; 85730; 93005; 94644; 99285; J7613

== ENCOUNTER 2018-06-04 10:04 | Inpatient (IN) | payer MEDICARE ==
[2018-06-04] VITALS (14 sets, daily range): BP systolic 112–180; BP diastolic 42–67
[~2018-06-04] VITALS: Ht 152.4 cm; Wt 72.7 kg
[2018-06-04] MEDS ORDERED: IPRATRPIUM/ALBUTEROL 0.5/2.5MG 3 ML NEBU. NEB ONE (10:15)
[2018-06-04] MEDS ORDERED: methylPREDNISolone SOD SUCC PF 125 MG/2 ML VIAL. IV ONE (10:15)
[2018-06-04] MEDS ORDERED: IPRATRPIUM/ALBUTEROL 0.5/2.5MG 3 ML NEBU. ONE (10:18)
--- NOTE | 2018-06-04 10:18 | PHYS DOC ---
Past Medical History Past Medical History: Arthritis, CAD, CHF, Constipation, COPD, Depression, Diabetes-Type II, Fibromyalgia, GERD, Hypertension, Pneumonia, UTI, Other Additional Past Medical Histor: NEUROPATHY Past Surgical History: Appendectomy, Cholecystectomy, Hysterectomy, Pacemaker, Other Additional Past Surgical Histo: NECK/BACK,HIP,EYE,CARPAL TUNNEL Alcohol Use: None Drug Use: None Adult General Chief Complaint Chief Complaint: SHORTNESS OF BREATH HPI HPI Patient is a 87 year old female history of COPD on home oxygen 2 L has had increasing shortness of breath for 2 days now no cough no fever feel some chest tightness like it's hard to get a deep breath no other known injury or history lives at home alone with a caregiver Dr. Castelan is her doctor she has had pneumonia been admitted several times in the past for this. Symptoms are moderate slowly worsening with time no improvement with her nebulizer. Review of Systems Review of Systems Constitutional: Denies fever or chills [] Eyes: Denies change in visual acuity, redness, or eye pain [] HENT: Denies nasal congestion or sore throat [] Respiratory: Cardiovascular: No additional information not addressed in HPI [] GI: Denies abdominal pain, nausea, vomiting, bloody stools or diarrhea [] Musculoskeletal: Chronic pain Integument: Denies rash or skin lesions [] Neurologic: Denies headache, focal weakness or sensory changes [] Endocrine: Denies polyuria or polydipsia [] All other systems were reviewed and found to be within normal limits, except as documented in this note. Current Medications Current Medications Current Medications Medications (Trade) Dose Ordered Sig/Lindsey Start Time Stop Time Status Last Admin Dose Admin Albuterol/ Ipratropium (Duoneb) 3 ml STK-MED ONCE 06/04/18 10:18 06/04/18 10:19 DC Furosemide (Lasix) 20 mg 1X ONCE 06/04/18 11:30 06/04/18 11:31 DC 06/04/18 11:30 20 MG Methylprednisolone Sodium Succinate (SOLU-Medrol 125MG VIAL) 125 mg 1X ONCE 06/04/18 10:15 06/04/18 10:18 DC 06/04/18 10:31 125 MG Piperacillin Sod/ Tazobactam Sod (Zosyn Per Pharmacy) 1 each PRN DAILY PRN 06/04/18 11:00 Allergies Allergies Allergies Coded Allergies Type Severity Reaction Last Updated Verified Iodinated Contrast- Oral and IV Dye Allergy Intermediate Itching 07/31/17 Yes amlodipine Allergy Intermediate 03/14/18 Yes doxazosin Allergy Intermediate 03/14/18 Yes lisinopril Allergy Intermediate 03/14/18 Yes niacin Allergy Intermediate 03/14/18 Yes I S O L A T I O N *CONTACT* Allergy Unknown 07/31/17 Yes atorvastatin Adverse Reaction Intermediate 03/14/18 Yes clonidine Adverse Reaction Intermediate 03/14/18 Yes fluvastatin Adverse Reaction Intermediate 03/14/18 Yes lovastatin Adverse Reaction Intermediate 03/14/18 Yes nifedipine Adverse Reaction Intermediate 03/14/18 Yes rosuvastatin Adverse Reaction Intermediate 03/14/18 Yes Physical Exam Physical Exam Constitutional: Well developed, patient is ill-appearing overall appears hypoxic and nearly cyanotic on initial evaluation with a sat of 70-72 on 2 L this rapidly improved to 98 on a facemask and we're currently trying to trend down her oxygen to target a sat of 92% HENT: Normocephalic, atraumatic, bilateral external ears normal, oropharynx moist, no oral exudates, nose normal. [] Eyes: PERRLA, EOMI, conjunctiva normal, no discharge. [] Neck: Normal range of motion, no tenderness, supple, no stridor. [] Cardiovascular:Heart rate regular rhythm, 2/6 systolic murmur Lungs & Thorax: There are decreased bibasilar breath sounds Abdomen: Bowel sounds normal, soft, no tenderness, no masses, no pulsatile masses. [] Skin: Warm, dry, no erythema, no rash. [] Back: No tenderness, no CVA tenderness. [] Fentanyl patch dated 426 noted on her back Extremities: No tenderness, no cyanosis, no clubbing, ROM intact, 1+ symmetric edema Neurologic: Alert and oriented X 3, normal motor function, normal sensory function, no focal deficits noted. [] Psychologic: Affect normal, judgement normal, mood normal. [] Current Patient Data Vital Signs Vital Signs Date Time Temp Pulse Resp B/P (MAP) Pulse Ox O2 Delivery O2 Flow Rate FiO2 06/04/18 11:14 99 BiPAP/CPAP 40.0 06/04/18 10:05 98.3 86 24 131/60 (83) 98.3 Lab Values Laboratory Tests Test 06/04/18 10:20 06/04/18 10:50 White Blood Count 7.0 x10^3/uL (4.0-11.0) Red Blood Count 3.87 x10^6/uL (3.50-5.40) Hemoglobin 10.9 g/dL (12.0-15.5) L Hematocrit 34.2 % (36.0-47.0) L Mean Corpuscular Volume 89 fL (79-100) Mean Corpuscular Hemoglobin 28 pg (25-35) Mean Corpuscular Hemoglobin Concent 32 g/dL (31-37) Red Cell Distribution Width 15.3 % (11.5-14.5) H Platelet Count 178 x10^3/uL (140-400) Neutrophils (%) (Auto) 74 % (31-73) H Lymphocytes (%) (Auto) 17 % (24-48) L Monocytes (%) (Auto) 6 % (0-9) Eosinophils (%) (Auto) 3 % (0-3) Basophils (%) (Auto) 0 % (0-3) Neutrophils # (Auto) 5.2 x10^3uL (1.8-7.7) Lymphocytes # (Auto) 1.2 x10^3/uL (1.0-4.8) Monocytes # (Auto) 0.4 x10^3/uL (0.0-1.1) Eosinophils # (Auto) 0.2 x10^3/uL (0.0-0.7) Basophils # (Auto) 0.0 x10^3/uL (0.0-0.2) Prothrombin Time 13.9 SEC (11.7-14.0) Prothrombin Time INR 1.1 (0.8-1.1) Sodium Level 138 mmol/L (136-145) Potassium Level 4.7 mmol/L (3.5-5.1) Chloride Level 98 mmol/L (98-107) Carbon Dioxide Level 36 mmol/L (21-32) H Anion Gap 4 (6-14) L Blood Urea Nitrogen 14 mg/dL (7-20) Creatinine 0.9 mg/dL (0.6-1.0) Estimated GFR (Cockcroft-Gault) 59.4 BUN/Creatinine Ratio 16 (6-20) Glucose Level 106 mg/dL (70-99) H Lactic Acid Level 0.7 mmol/L (0.4-2.0) Calcium Level 9.1 mg/dL (8.5-10.1) Total Bilirubin 0.4 mg/dL (0.2-1.0) Aspartate Amino Transferase (AST) 22 U/L (15-37) Alanine Aminotransferase (ALT) 15 U/L (14-59) Alkaline Phosphatase 85 U/L (46-116) Troponin I Quantitative < 0.017 ng/mL (0.000-0.055) DO-Pkm-P-Type Natriuretic Peptide 1550 pg/mL (0-449) H Total Protein 7.2 g/dL (6.4-8.2) Albumin 3.4 g/dL (3.4-5.0) Albumin/Globulin Ratio 0.9 (1.0-1.7) L O2 Saturation 89 % (92-99) L Arterial Blood pH 7.29 (7.35-7.45) L Arterial Blood pCO2 at Patient Temp 80 mmHg (35-46) *H Arterial Blood pO2 at Patient Temp 60 mmHg (65-108) L Arterial Blood HCO3 38 mmol/L (21-28) H Arterial Blood Base Excess 9 mmol/L (-3-3) H FiO2 40% nc Laboratory Tests 06/04/18 10:20 Laboratory Tests 06/04/18 10:20 EKG EKG []Normal sinus rhythm rate of 79 NO STEMI NOTED. SIMILAR TO 03/12/18 Radiology/Procedures Radiology/Procedures [] Impressions: Impression: 1. There is again some reticular and interstitial opacity bilaterally, could be due to mild interstitial infiltrate or edema, no new lobar consolidation. Electronically signed by: Mateus Bui MD (06/04/2018 11:07 AM) [facility] DICTATED and SIGNED BY: MATEUS BUI MD DATE: 06/04/18 1107 Course & Med Decision Making Course & Med Decision Making Critical care time was 40 minutes minutes for management of acute hypoxemic respiratory failure with close oxygen titration bedside monitoring and reevaluation exclusive of procedures.Pertinent Labs and Imaging studies reviewed. (See chart for details) 3. Acute on chronic diastolic congestive heart failure. 5. Chronic hypoxic respiratory failure. 6. Diabetes mellitus type 2 with peripheral neuropathy. 7. Hypertension. 8. Hyperlipidemia. 9. Chronic obstructive pulmonary disease. 87-year-old female with history of the above presenting with 2 days of shortness of breath with hypoxia fairly profound 2 L 72% decreased breath sounds bilaterally improved workup sh9ows probable pulmonary edema (pna possible zosyn added), noted acute hypoxemic hypercarbic respiratory failure BiPAP was initiated due to the respiratory acidosis i spoked gerardo castelan admit to icu, consult cards and pulm. for now, keep full code. Dragon Disclaimer Dragon Disclaimer This electronic medical record was generated, in whole or in part, using a voice recognition dictation system. Departure Departure Impression: Primary Impression: COPD (chronic obstructive pulmonary disease) Additional Impression: Acute on chronic respiratory failure Disposition: ADMITTED INPATIENT Admitting Physician: Esau Castelan Condition: GUARDED Referrals: ESAU CASTELAN MD (PCP) Problem Qualifiers CARLO HEBERT MD Jun 04, 2018 10:18
[2018-06-04 10:39] LABS: BASO % 0 % (0-3); EOS # 0.2 x10^3/uL (0.0-0.7); EOS % 3 % (0-3); HEMATOCRIT 34.2 % (36.0-47.0); HEMOGLOBIN 10.9 g/dL (12.0-15.5); LYMPH # 1.2 x10^3/uL (1.0-4.8); LYMPH % 17 % (24-48); MEAN CORPUSCULAR HEMOGLOBIN 28 pg (25-35); MEAN CORPUSCULAR HGB CONC 32 g/dL (31-37); MEAN CORPUSCULAR VOLUME 89 fL (79-100); MONO # 0.4 x10^3/uL (0.0-1.1); MONO % 6 % (0-9); NEUT # 5.2 x10^3uL (1.8-7.7); NEUT % 74 % (31-73); PLATELET COUNT 178 x10^3/uL (140-400); RED BLOOD COUNT 3.87 x10^6/uL (3.50-5.40); RED CELL DISTRIBUTION WIDTH 15.3 % (11.5-14.5)
[2018-06-04 10:45] LABS: CALCIUM 9.1 mg/dL (8.5-10.1); CREATININE 0.9 mg/dL (0.6-1.0); GFR 59.4; POTASSIUM 4.7 mmol/L (3.5-5.1)
[2018-06-04 10:49] LABS: PROTHROMBIN TIME PATIENT 13.9 SEC (11.7-14.0)
[2018-06-04 10:51] LABS: ALBUMIN 3.4 g/dL (3.4-5.0); ALBUMIN/GLOBULIN RATIO 0.9 (1.0-1.7); TOTAL BILIRUBIN 0.4 mg/dL (0.2-1.0); TOTAL PROTEIN 7.2 g/dL (6.4-8.2)
[2018-06-04 10:58] LABS: BASE EXCESS ABG 9 mmol/L (-3-3); HCO3 ABG 38 mmol/L (21-28); PO2 ABG 60 mmHg (65-108); SAT O2 ABG 89 % (92-99)
[2018-06-04] MEDS ORDERED: PIP/TAZO PER PHARMACY MC PRN (11:00)
[2018-06-04 11:03] LABS: FIO2 ABG 40% NC; PCO2 ABG 80 mmHg (35-46)
--- NOTE | 2018-06-04 11:10 | RAD ---
PORTABLE CHEST 1V History: Shortness of air Comparison: May 20, 2018 Findings: Single view of the chest is submitted. There is again dual lead left electronic cardiac device. Heart size is stable. There is no pneumothorax or significant pleural fluid. There is no new lobar consolidation. There is some reticular and interstitial opacity bilaterally, overall stable in appearance. Impression: 1. There is again some reticular and interstitial opacity bilaterally, could be due to mild interstitial infiltrate or edema, no new lobar consolidation. Electronically signed by: Manuel Schroeder MD (06/04/2018 11:07 AM) [facility]
--- NOTE | 2018-06-04 11:23 | EKG ---
[facility] [address] [place] [address] Test Date: 2018-06-04 Test Time: 10:15:04 Pat Name: SYBIL AUGUSTINE Department: Room: Gender: F [employer] Attendant: : 1930 Requested By: CARLO HEBETR Order Number: [id number] Reading MD: Monster Zhang Measurements Intervals [place] Rate: 79 P: -9 CO: 180 QRS: -27 QRSD: 122 T: 117 QT: 400 QTc: 460 Interpretive Statements SINUS RHYTHM LEFTWARD AXIS QRS(T) CONTOUR ABNORMALITY CONSIDER ANTEROSEPTAL MYOCARDIAL DAMAGE ST & T ABNORMALITY, CONSIDER HIGH LATERAL ISCHEMIA OR LEFT VENTRICULAR STRAIN ABNORMAL ECG RI6.01 Compared to ECG 05/20/2018 14:15:54 No significant changes Electronically Signed On 06-08-2018 9:18:01 CDT by Monster Zhang
[2018-06-04] MEDS: PIPERACILLIN/TAZOBACTAM 3.375 GM in IV NORMAL SALINE 50ML 50 ML IV SCH ×2 (11:28→17:20)
[2018-06-04] MEDS ORDERED: FUROSEMIDE 20 MG/2 ML VIAL. IVP ONE (11:30)
--- NOTE | 2018-06-04 13:10 | NUR ---
Rec'd from ER per cart. A&O Placed on Bipap 22/07 R18 40%. IV patent. SL. Pur wick replaced after placed on bedpan as was placed by ER with fair results. Son at bedside. Seen by Dr Pizarro. Will cont adm process and keep sat >90-94%.
--- NOTE | 2018-06-04 13:28 | PDOC2 ---
CARDIAC CONSULT DATE OF CONSULT Date of Consult DATE: 06/04/18 TIME: 13:26 REASON FOR CONSULT Reason for Consult: CHF REFERRING PHYSICIAN Referring Physician: Dr. Grimaldo SOURCE Source: Chart review, Patient HISTORY OF PRESENT ILLNESS HISTORY OF PRESENT ILLNESS This is an 87 yo female, with a h/o COPD on chronic O2, who presented secondary to shortness of breath. Patient reports shortness of breath has been presently for the last couple of days. Progressively worsening. This morning, had some pain in her central chest. Describes as tightness and is worsened with deep breathing. Non-radiating. Denies any associated dizziness, diaphoresis, palpitations, or nausea/vomiting. Presently requiring BiPAP. PAST MEDICAL HISTORY Past Medical History Cardiovascular: CHF, HTN, Syncope, Hyperlipidemia, Other (SSS/CSH) Pulmonary: COPD, Pneumonia, Other (BOOP) CENTRAL NERVOUS SYSTEM: Periperal neuropathy GI: Constipation, GERD, Hemorrhoids Heme/Onc: Anemia NOS Psych: Anxiety Musculoskeletal: Osteoarthritis Rheumatologic: Fibromyalgia Infectious disease: No pertinent hx Renal/: UTI Endocrine: Diabetes (2) Dermatology: Other (right foot wound) PAST SURGICAL HISTORY Past Surgical History Pacemaker, Total hip replacement (right), Other (colon polypectomy; lumbar laminectomy) FAMILY HISTORY Family History: Heart Disease SOCIAL HISTORY Social History Smoke: Quit many years ago ALCOHOL: none Drugs: None Lives: Alone CURRENT MEDICATIONS CURRENT MEDICATIONS Current Medications Medications (Trade) Dose Ordered Sig/Lindsey Route PRN Reason Start Time Stop Time Status Last Admin Dose Admin Albuterol/ Ipratropium (Duoneb) 3 ml 1X ONCE NEB 06/04/18 10:15 06/04/18 10:18 DC 06/04/18 10:20 Methylprednisolone Sodium Succinate (SOLU-Medrol 125MG VIAL) 125 mg 1X ONCE IV 06/04/18 10:15 06/04/18 10:18 DC 06/04/18 10:31 Piperacillin Sod/ Tazobactam Sod 3.375 gm/Sodium Chloride 50 ml @ 100 mls/hr Q6HRS IV 06/04/18 12:00 06/04/18 11:28 Furosemide (Lasix) 20 mg 1X ONCE IVP 06/04/18 11:30 06/04/18 11:31 DC 06/04/18 11:30 Lorazepam (Ativan) 0.5 mg 1X ONCE IV 06/04/18 12:30 06/04/18 12:31 DC 06/04/18 12:27 ALLERGIES ALLERGIES: Coded Allergies: Iodinated Contrast- Oral and IV Dye (Verified Allergy, Intermediate, Itching, 07/31/17) amlodipine (Verified Allergy, Intermediate, 03/14/18) doxazosin (Verified Allergy, Intermediate, 03/14/18) lisinopril (Verified Allergy, Intermediate, 03/14/18) niacin (Verified Allergy, Intermediate, 03/14/18) I S O L A T I O N *CONTACT* (Verified Allergy, Unknown, 07/31/17) mrsa screen + atorvastatin (Verified Adverse Reaction, Intermediate, 03/14/18) clonidine (Verified Adverse Reaction, Intermediate, 03/14/18) fluvastatin (Verified Adverse Reaction, Intermediate, 03/14/18) lovastatin (Verified Adverse Reaction, Intermediate, 03/14/18) nifedipine (Verified Adverse Reaction, Intermediate, 03/14/18) rosuvastatin (Verified Adverse Reaction, Intermediate, 03/14/18) ROS Review of System 14 point ROS conducted with pertinent positives noted above in HPI PHYSICAL EXAM General: Alert, Oriented X3, Cooperative, No acute distress HEENT: Atraumatic, Mucous membr. moist/pink Lungs: Other (bibasilar crackles- on BiPAP) Heart: Regular rate, Other (distant heart tones) Extremities: No edema, Normal pulses Skin: No breakdown, No significant lesion Neuro: Sensation intact Psych/Mental Status: Mental status NL MUSCULOSKELETAL: Osteoarthritic changes both hands VITALS VITALS Vital Signs Date Time Temp Pulse Resp B/P (MAP) Pulse Ox O2 Delivery O2 Flow Rate FiO2 06/04/18 11:14 99 BiPAP/CPAP 40.0 06/04/18 10:05 98.3 86 24 131/60 (83) 98.3 LABS Lab: Laboratory Tests Test 06/04/18 10:20 06/04/18 10:50 White Blood Count 7.0 x10^3/uL (4.0-11.0) Red Blood Count 3.87 x10^6/uL (3.50-5.40) Hemoglobin 10.9 g/dL (12.0-15.5) Hematocrit 34.2 % (36.0-47.0) Mean Corpuscular Volume 89 fL (79-100) Mean Corpuscular Hemoglobin 28 pg (25-35) Mean Corpuscular Hemoglobin Concent 32 g/dL (31-37) Red Cell Distribution Width 15.3 % (11.5-14.5) Platelet Count 178 x10^3/uL (140-400) Neutrophils (%) (Auto) 74 % (31-73) Lymphocytes (%) (Auto) 17 % (24-48) Monocytes (%) (Auto) 6 % (0-9) Eosinophils (%) (Auto) 3 % (0-3) Basophils (%) (Auto) 0 % (0-3) Neutrophils # (Auto) 5.2 x10^3uL (1.8-7.7) Lymphocytes # (Auto) 1.2 x10^3/uL (1.0-4.8) Monocytes # (Auto) 0.4 x10^3/uL (0.0-1.1) Eosinophils # (Auto) 0.2 x10^3/uL (0.0-0.7) Basophils # (Auto) 0.0 x10^3/uL (0.0-0.2) Prothrombin Time 13.9 SEC (11.7-14.0) Prothromb Time International Ratio 1.1 (0.8-1.1) Sodium Level 138 mmol/L (136-145) Potassium Level 4.7 mmol/L (3.5-5.1) Chloride Level 98 mmol/L (98-107) Carbon Dioxide Level 36 mmol/L (21-32) Anion Gap 4 (6-14) Blood Urea Nitrogen 14 mg/dL (7-20) Creatinine 0.9 mg/dL (0.6-1.0) Estimated GFR (Cockcroft-Gault) 59.4 BUN/Creatinine Ratio 16 (6-20) Glucose Level 106 mg/dL (70-99) Lactic Acid Level 0.7 mmol/L (0.4-2.0) Calcium Level 9.1 mg/dL (8.5-10.1) Total Bilirubin 0.4 mg/dL (0.2-1.0) Aspartate Amino Transf (AST/SGOT) 22 U/L (15-37) Alanine Aminotransferase (ALT/SGPT) 15 U/L (14-59) Alkaline Phosphatase 85 U/L (46-116) Troponin I Quantitative < 0.017 ng/mL (0.000-0.055) RG-Vtf-A-Type Natriuretic Peptide 1550 pg/mL (0-449) Total Protein 7.2 g/dL (6.4-8.2) Albumin 3.4 g/dL (3.4-5.0) Albumin/Globulin Ratio 0.9 (1.0-1.7) O2 Saturation 89 % (92-99) Arterial Blood pH 7.29 (7.35-7.45) Arterial Blood pCO2 at Patient Temp 80 mmHg (35-46) Arterial Blood pO2 at Patient Temp 60 mmHg (65-108) Arterial Blood HCO3 38 mmol/L (21-28) Arterial Blood Base Excess 9 mmol/L (-3-3) FiO2 40% nc ECHOCARDIOGRAM ECHOCARDIOGRAM <Conclusion> There is mild concentric left ventricular hypertrophy. The left ventricular systolic function is normal and the ejection fraction is within normal range. The Ejection Fraction is 60%. The left atrium size is normal. The right atrium size is normal. The aortic valve is not well visualized. Mitral annular calcification is severe. Doppler and Color-flow revealed trace mitral regurgitation. Doppler and Color Flow revealed trace to mild tricuspid regurgitation. The pulmonic valve is not well visualized. There is no evidence of significant pericardial effusion. DATE: 04/27/17 1650 <Conclusion> The left ventricular systolic function is normal and the ejection fraction is within normal range. The Ejection Fraction is 55-60%. Apical motion consistent with pacemaker activation. There is a pacemaker in the RA/RV. Doppler and Color Flow revealed trace tricuspid regurgitation. There is moderate pulmonary hypertension. The PA pressure was estimated at 44 mmHg. DATE: 03/13/18 1235 ASSESSMENT/PLAN ASSESSMENT/PLAN 1. Acute respiratory failure with AE COPD and possible PNA. requiring BiPAP 2. Chronic diastolic HF; NT pro-BNP mildly elevated, but insignificant bases upon age adjustment. No JVD. Received IV Lasix in ED 3. Chest pain, atypical and most probably pleuritic in nature. Recent echo with preserved LV systolic function. 3. SSS s/p PPM ([facility]) 4. Accelerated HTN 5. Hyperlipidemia; not on statin 6. Diabetes, II; as per PCP 7. Chronic opioid use with fentanyl and lortab Recommendations Trend troponin Lipid panel No further aggressive diuresis warranted Resume home antiHTN therapy. Hydralazine IV PRN Lung optimization as per pulm Consider outpatient ischemic evaluation CHRIS URBANO APRN Jun 04, 2018 13:28
--- NOTE | 2018-06-04 13:40 | PDOC ---
PULMONARY PROGRESS NOTES Vitals Vital Signs Date Time Temp Pulse Resp B/P (MAP) Pulse Ox O2 Delivery O2 Flow Rate FiO2 06/04/18 11:14 99 BiPAP/CPAP 40.0 06/04/18 10:05 98.3 86 24 131/60 (83) 98.3 General: Alert Lungs: Crackles Cardiovascular: S1, S2 Abdomen: Soft, Non-tender Extremities: No Edema Labs Laboratory Tests Test 06/04/18 10:20 06/04/18 10:50 White Blood Count 7.0 x10^3/uL (4.0-11.0) Red Blood Count 3.87 x10^6/uL (3.50-5.40) Hemoglobin 10.9 g/dL (12.0-15.5) Hematocrit 34.2 % (36.0-47.0) Mean Corpuscular Volume 89 fL (79-100) Mean Corpuscular Hemoglobin 28 pg (25-35) Mean Corpuscular Hemoglobin Concent 32 g/dL (31-37) Red Cell Distribution Width 15.3 % (11.5-14.5) Platelet Count 178 x10^3/uL (140-400) Neutrophils (%) (Auto) 74 % (31-73) Lymphocytes (%) (Auto) 17 % (24-48) Monocytes (%) (Auto) 6 % (0-9) Eosinophils (%) (Auto) 3 % (0-3) Basophils (%) (Auto) 0 % (0-3) Neutrophils # (Auto) 5.2 x10^3uL (1.8-7.7) Lymphocytes # (Auto) 1.2 x10^3/uL (1.0-4.8) Monocytes # (Auto) 0.4 x10^3/uL (0.0-1.1) Eosinophils # (Auto) 0.2 x10^3/uL (0.0-0.7) Basophils # (Auto) 0.0 x10^3/uL (0.0-0.2) Prothrombin Time 13.9 SEC (11.7-14.0) Prothromb Time International Ratio 1.1 (0.8-1.1) Sodium Level 138 mmol/L (136-145) Potassium Level 4.7 mmol/L (3.5-5.1) Chloride Level 98 mmol/L (98-107) Carbon Dioxide Level 36 mmol/L (21-32) Anion Gap 4 (6-14) Blood Urea Nitrogen 14 mg/dL (7-20) Creatinine 0.9 mg/dL (0.6-1.0) Estimated GFR (Cockcroft-Gault) 59.4 BUN/Creatinine Ratio 16 (6-20) Glucose Level 106 mg/dL (70-99) Lactic Acid Level 0.7 mmol/L (0.4-2.0) Calcium Level 9.1 mg/dL (8.5-10.1) Total Bilirubin 0.4 mg/dL (0.2-1.0) Aspartate Amino Transf (AST/SGOT) 22 U/L (15-37) Alanine Aminotransferase (ALT/SGPT) 15 U/L (14-59) Alkaline Phosphatase 85 U/L (46-116) Troponin I Quantitative < 0.017 ng/mL (0.000-0.055) HA-Jbm-T-Type Natriuretic Peptide 1550 pg/mL (0-449) Total Protein 7.2 g/dL (6.4-8.2) Albumin 3.4 g/dL (3.4-5.0) Albumin/Globulin Ratio 0.9 (1.0-1.7) O2 Saturation 89 % (92-99) Arterial Blood pH 7.29 (7.35-7.45) Arterial Blood pCO2 at Patient Temp 80 mmHg (35-46) Arterial Blood pO2 at Patient Temp 60 mmHg (65-108) Arterial Blood HCO3 38 mmol/L (21-28) Arterial Blood Base Excess 9 mmol/L (-3-3) FiO2 40% nc Laboratory Tests Test 06/04/18 10:20 06/04/18 10:50 White Blood Count 7.0 x10^3/uL (4.0-11.0) Red Blood Count 3.87 x10^6/uL (3.50-5.40) Hemoglobin 10.9 g/dL (12.0-15.5) Hematocrit 34.2 % (36.0-47.0) Mean Corpuscular Volume 89 fL (79-100) Mean Corpuscular Hemoglobin 28 pg (25-35) Mean Corpuscular Hemoglobin Concent 32 g/dL (31-37) Red Cell Distribution Width 15.3 % (11.5-14.5) Platelet Count 178 x10^3/uL (140-400) Neutrophils (%) (Auto) 74 % (31-73) Lymphocytes (%) (Auto) 17 % (24-48) Monocytes (%) (Auto) 6 % (0-9) Eosinophils (%) (Auto) 3 % (0-3) Basophils (%) (Auto) 0 % (0-3) Neutrophils # (Auto) 5.2 x10^3uL (1.8-7.7) Lymphocytes # (Auto) 1.2 x10^3/uL (1.0-4.8) Monocytes # (Auto) 0.4 x10^3/uL (0.0-1.1) Eosinophils # (Auto) 0.2 x10^3/uL (0.0-0.7) Basophils # (Auto) 0.0 x10^3/uL (0.0-0.2) Prothrombin Time 13.9 SEC (11.7-14.0) Prothromb Time International Ratio 1.1 (0.8-1.1) Sodium Level 138 mmol/L (136-145) Potassium Level 4.7 mmol/L (3.5-5.1) Chloride Level 98 mmol/L (98-107) Carbon Dioxide Level 36 mmol/L (21-32) Anion Gap 4 (6-14) Blood Urea Nitrogen 14 mg/dL (7-20) Creatinine 0.9 mg/dL (0.6-1.0) Estimated GFR (Cockcroft-Gault) 59.4 BUN/Creatinine Ratio 16 (6-20) Glucose Level 106 mg/dL (70-99) Lactic Acid Level 0.7 mmol/L (0.4-2.0) Calcium Level 9.1 mg/dL (8.5-10.1) Total Bilirubin 0.4 mg/dL (0.2-1.0) Aspartate Amino Transf (AST/SGOT) 22 U/L (15-37) Alanine Aminotransferase (ALT/SGPT) 15 U/L (14-59) Alkaline Phosphatase 85 U/L (46-116) Troponin I Quantitative < 0.017 ng/mL (0.000-0.055) ZF-Gjt-K-Type Natriuretic Peptide 1550 pg/mL (0-449) Total Protein 7.2 g/dL (6.4-8.2) Albumin 3.4 g/dL (3.4-5.0) Albumin/Globulin Ratio 0.9 (1.0-1.7) O2 Saturation 89 % (92-99) Arterial Blood pH 7.29 (7.35-7.45) Arterial Blood pCO2 at Patient Temp 80 mmHg (35-46) Arterial Blood pO2 at Patient Temp 60 mmHg (65-108) Arterial Blood HCO3 38 mmol/L (21-28) Arterial Blood Base Excess 9 mmol/L (-3-3) FiO2 40% nc Medications Active Scripts Medications Dose Route/Sig Max Daily Dose Days Date Category Lyrica (Pregabalin) 50 Mg Capsule 50 Mg PO BID 03/14/18 Rx Duoneb 0.5-3(2.5) Mg/3 Ml (Albuterol/Ipratropium) 3 Ml Ampul.neb 3 Ml NEB PRN Q4HRS PRN 03/13/18 Reported Tylenol (Acetaminophen) 325 Mg Tablet 1 Tab PO PRN Q4HRS 03/13/18 Reported Ambien (Zolpidem Tartrate) 5 Mg Tablet 5 Mg PO PRN QHS PRN 03/13/18 Reported Hydrocodone-Apap 5-325 (Hydrocodone Bit/Acetaminophen) 1 Tab Tablet 1 Tab PO PRN Q8HRS PRN 03/13/18 Reported Alprazolam 0.25 Mg Tablet 1 Tab PO DAILY17 03/13/18 Reported Melatonin 3 Mg Tablet 10 Mg PO DAILY 03/13/18 Reported Carvedilol 25 Mg Tablet 12.5 Mg PO BIDWMEALS 03/13/18 Reported Zoloft (Sertraline Hcl) 50 Mg Tablet 1 Tab PO DAILY 03/13/18 Reported Omeprazole 20 Mg Capsule. 1 Cap PO DAILY 03/13/18 Reported Vitamin D (Cholecalciferol (Vitamin D3)) 1,000 Unit Capsule 1 Cap PO DAILY 06/24/17 Reported Advair 250-50 Diskus (Fluticasone/Salmeterol) 1 Each Disk.w.dev 1 Puff IH BID 06/24/17 Reported Multi-Day Vitamins (Multivitamin) 1 Each Tablet 1 Tab PO DAILY 01/18/16 Reported Colace (Docusate Sodium) 100 Mg Capsule 100 Mg PO BID 04/11/13 Reported Impression . NOTE DICTATED SEE DETAILS REGARDING MAC IN BAL FRO 07/2017 A/C RF/PNEUMONIA WILL CHECK CT CHEST SEE ORDERS MEDINA PAYNE MD Jun 04, 2018 13:40
[2018-06-04] MEDS ORDERED: ALBUTEROL SULFATE 2.5 MG/3 ML NEBU. NEB PRN (13:45)
--- NOTE | 2018-06-04 13:57 | NUR ---
IP: patient has hx of MRSA + nasal screen 03/13/18, requires contact precautions until 2 negative results 7 days apart.
[2018-06-04] MEDS ORDERED: methylPREDNISolone SOD SUCC PF 125 MG/2 ML VIAL. IV SCH (14:00)
[2018-06-04] MEDS ORDERED: LIDO700A39 TP (14:49)
[2018-06-04] MEDS ORDERED: AMLO5TAB10 PO (14:49)
[2018-06-04] MEDS ORDERED: SENN-80 PO (14:49)
[2018-06-04] MEDS ORDERED: PREG75CA PO (14:49)
[2018-06-04] MEDS ORDERED: FENT1PAT13 TD (14:49)
[2018-06-04] MEDS ORDERED: SERT100T PO (14:49)
[2018-06-04] MEDS ORDERED: ALPR0.5T PO (14:49)
[2018-06-04] MEDS ORDERED: CARV25TA PO (14:49)
[2018-06-04] MEDS ORDERED: OMEP20CA10 PO (14:49)
[2018-06-04] MEDS: DOXYCYCLINE HYCLATE 100 MG in IV DEXTROSE 5% 100ML 100 ML IV SCH ×2 (15:47→22:39)
[2018-06-04] MEDS ORDERED: ENOXAPARIN 30 MG/0.3 ML SYRINGE. SQ SCH (16:15)
[2018-06-04] MEDS ORDERED: ACETAMINOPHEN 325 MG TABLET. PO PRN (16:15)
[2018-06-04] MEDS: IPRATRPIUM/ALBUTEROL 0.5/2.5MG 3 ML NEBU. NEB SCH ×2 (17:00→19:41)
[2018-06-04] MEDS: ENOXAPARIN 40 MG/0.4 ML SYRINGE. SQ SCH (17:29)
[2018-06-04] MEDS: CARVEDILOL 12.5 MG TABLET. PO SCH (17:31)
--- NOTE | 2018-06-04 17:54 | PDOC ---
Provider Note Provider Note history and physical dictated # [id number] KARAN KIMBLE MD Jun 04, 2018 17:53
--- NOTE | 2018-06-04 20:29 | HP ---
ADMIT DATE: 06/04/2018 LOCATION: She is in Intensive Care Unit in room 106. HISTORY OF PRESENT ILLNESS: The patient is an 87-year-old white female with history of chronic obstructive pulmonary disease, chronic diastolic congestive heart failure, diabetes mellitus type 2 with peripheral neuropathy, hypertension, chronic pain, narcotic dependent, who was admitted to [facility] Emergency Room on 06/04/2018 with a 2-day history of increasing shortness of breath despite using her nebulizer treatments. She denied any significant cough. She sought help with the [facility] Emergency Room, she was hypoxic and hypercapnic and had to be placed on BiPAP. She comes admitted to the Intensive Care Unit for acute on chronic hypoxic and hypercapnic respiratory failure. She was seen by the soil fertility specialist, started on IV Solu-Medrol and also antibiotics. She is currently sleeping with BiPAP when I saw her in the Intensive Care Unit. ALLERGIES AND INTOLERANCES: INCLUDE IV IODINE, ATORVASTATIN, CLONIDINE, DOXAZOSIN, FLUVASTATIN, LISINOPRIL, LOVASTATIN, NIACIN, NIFEDIPINE, AND ROSUVASTATIN. MEDICATIONS PRIOR TO ADMISSION: Include Colace 100 mg b.i.d., vitamin D 1000 units every day, furosemide 20 mg every day p.r.n., melatonin 5 mg at bedtime, albuterol nebulizer treatments q.i.d., Plaquenil 200 mg every day, Advair 250/50 mcg 1 puff daily, MiraLax 17 grams every day as needed, Lyrica 75 mg b.i.d., sertraline 100 mg everyday, carvedilol 25 mg b.i.d., Ambien 5 mg at bedtime, amlodipine 5 mg every day, alprazolam 0.5 mg b.i.d., Masc[place] 5/325 one tablet t.i.d. p.r.n., fentanyl 12 mcg patch every 72 hours. PAST MEDICAL HISTORY: Significant for diabetes mellitus type 2, hypertension, hyperlipidemia, chronic pain, narcotic dependent, depression, diabetes mellitus with peripheral neuropathy, osteoarthritis, chronic obstructive pulmonary disease. She has had an open wound in the right foot in the past followed at the pain clinic in the past. She has generalized osteoarthritis. She has had lumbar spondylosis. She has had esophageal stricture dilated in 2013. She had a colonoscopy in 04/12/2011 and had a biopsy of colonic polyps, internal hemorrhoids. She had a cellulitis, right leg in 2010, pneumonia in the same year in 2010, bile acid gastritis in 2013. She had a cardiac catheterization in 2016, she had a laminectomy in the past, sick sinus syndrome treated with a permanent pacemaker 04/2017, cataract extraction, cholecystectomy, hysterectomy, right hip hemiarthroplasty for hip fracture in 09/2015. History of gout and gastritis in the past. SOCIAL HISTORY: She does not drink alcohol nor does she smoke cigarettes. She has attendants at home to help her. FAMILY HISTORY: Father had breast cancer. Mother had congestive heart failure. REVIEW OF SYSTEMS: Unobtainable as she is sleeping. PHYSICAL EXAMINATION: VITAL SIGNS: Temperature is 97.3 degrees, apical pulse is regular at 78, respiratory rate 23, blood pressure 150/63, oxygen saturation 97% on BiPAP. 40% FiO2. HEENT: Eyes gaze: She is sleeping. She got a BiPAP mask on her face. HEART: Reveals an S1, S2. There is no S3 or murmur. LUNGS: Clear anteriorly with decreased breath sounds. ABDOMEN: Soft, nontender. LOWER EXTREMITIES: Without edema. SKIN: No rashes. NEUROLOGIC: Limited because she is sleeping. LABORATORY DATA: White count 7.0, hemoglobin 10.9 with a platelet count of 178,000, 74 polys and 17 lymphocytes. Arterial blood gas showed a pH 7.29, pCO2 of 80, pO2 of 60, 40% nasal cannula and that was done in the Emergency Room. INR was 1.1. Sodium 138, potassium 4.7, chloride 98, total CO2 of 36, BUN 14, creatinine 0.9, blood sugar 106. Liver function tests were normal. Troponin level negative x 2. Lactic acid 0.2. ProBNP was 1550, albumin level was 3.4. Chest x-ray showed some reticular interstitial opacities bilaterally. EKG showed normal sinus rhythm, left axis deviation, left anterior hemiblock with delayed precordial R-wave progression. ASSESSMENT: 1. Acute on chronic hypoxic and hypercapnic respiratory failure. 2. Acute exacerbation of chronic obstructive pulmonary disease. 3. I suspect pneumonia. 4. Chronic diastolic congestive heart failure. 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 6. Hypertension. 7. Chronic pain, narcotic dependent. PLAN: At this time is to consult Dr. Pizarro, discussed the case with him and we will get a CAT scan of the chest without contrast. I Also ordered an echocardiogram. In addition, we will recheck x-ray. We will recheck her labs tomorrow. I have ordered some Lovenox for deep vein thrombosis prophylaxis. Continue with IV Solu-Medrol and the albuterol nebulizer treatment. She is on IV doxycycline. We will continue with the IV Zosyn. Continue with her Lyrica and sertraline. She received a single dose of IV Lasix in the Emergency Room. Continue carvedilol, amlodipine and see if she was on amlodipine prior to admission, will be double checked, she is not allergic to it. Also consult Dr. Hernandez and again she has Lovenox for deep vein thrombosis prophylaxis. KARAN KIMBLE MD DR: KATHY/ben JOB#: [id number] / [id number]
[2018-06-04] MEDS ORDERED: NON FORMULARY ITEM (Carvedilol (Coreg) 25 MG) PO SCH (21:00)
[2018-06-04] MEDS: methylPREDNISolone SOD SUCC PF 125 MG/2 ML VIAL. IV SCH (22:38)
[2018-06-04] MEDS: DOCUSATE SODIUM 100 MG CAPSULE. PO SCH (22:38)
[2018-06-04] MEDS: PREGABALIN 75 MG CAPSULE PO SCH (22:38)
[2018-06-05] VITALS (15 sets, daily range): BP systolic 116–180; BP diastolic 39–77
[2018-06-05] MEDS: PIPERACILLIN/TAZOBACTAM 3.375 GM in IV NORMAL SALINE 50ML 50 ML IV SCH ×4 (00:26→18:02)
[2018-06-05] MEDS ORDERED: ALPRAZolam 0.5 MG TABLET PO ONE (00:30)
[2018-06-05] MEDS ORDERED: fentaNYL 12MCG/HR PATCH 1 PATCH PATCH.TD72 TD SCH (01:00)
[2018-06-05 05:03] LABS: BASO % 0 % (0-3); EOS % 0 % (0-3); HEMATOCRIT 35.7 % (36.0-47.0); HEMOGLOBIN 11.5 g/dL (12.0-15.5); LYMPH # 0.6 x10^3/uL (1.0-4.8); LYMPH % 11 % (24-48); MEAN CORPUSCULAR HEMOGLOBIN 28 pg (25-35); MEAN CORPUSCULAR HGB CONC 32 g/dL (31-37); MEAN CORPUSCULAR VOLUME 87 fL (79-100); MONO # 0.1 x10^3/uL (0.0-1.1); MONO % 2 % (0-9); NEUT # 4.5 x10^3uL (1.8-7.7); NEUT % 87 % (31-73); PLATELET COUNT 193 x10^3/uL (140-400); WHITE BLOOD COUNT 5.1 x10^3/uL (4.0-11.0)
[2018-06-05 05:26] LABS: ALBUMIN 3.1 g/dL (3.4-5.0); ALBUMIN/GLOBULIN RATIO 0.7 (1.0-1.7); CALCIUM 9.1 mg/dL (8.5-10.1); CREATININE 0.9 mg/dL (0.6-1.0); GFR 59.4; POTASSIUM 3.9 mmol/L (3.5-5.1); TOTAL BILIRUBIN 0.7 mg/dL (0.2-1.0); TOTAL PROTEIN 7.6 g/dL (6.4-8.2)
[2018-06-05 06:45] LABS: % LYMPHS 5 % (24-48); % MONOS 2 % (0-10); % SEGS 93 % (35-66)
[2018-06-05 06:46] LABS: PLT ESTIMATE ADEQUATE (ADEQUATE)
[2018-06-05 06:47] LABS: ANISOCYTOSIS SLIGHT
[2018-06-05] MEDS: IPRATRPIUM/ALBUTEROL 0.5/2.5MG 3 ML NEBU. NEB SCH ×5 (07:00→21:05)
--- NOTE | 2018-06-05 07:12 | CONS ---
DATE OF CONSULTATION: 06/04/2018 ATTENDING PHYSICIAN: Esau Castelan MD REASON FOR CONSULTATION: The patient seen in pulmonary consultation at the request of Dr. Castelan for acute respiratory failure, abnormal chest x-ray. HISTORY OF PRESENT ILLNESS: The patient is an 87-year-old known to me from previous hospitalization a year ago. She was hospitalized with abnormal chest x-ray and CT chest. The patient underwent bronchoscopy. 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 The patient is to follow up with me on 07/17/2017. She was due to follow up in October. Apparently, she had some other medical issues and was unable to follow up. She is currently in the intensive care unit on BiPAP. I took the BiPAP off. She gives no history of ongoing infection. No fever, chills or night sweats. She has a cough, mostly nonproductive. She was just more short of air. An arterial blood gas revealed a pH of 7.29, pCO2 of 80, pO2 of 60. Her white count was 7.0. X-ray revealed some ill-defined infiltrates. PAST MEDICAL HISTORY: 1. Remarkable for previous pneumonia, presumptive BOOP. I think we held her steroids for a while and then underwent bronchoscopy and is status post bronchoscopy dated 07/31/2017. BAL grew out Mycobacterium avium complex. The patient never did follow up in the office as a consequence of suffering a concussion and then had hip replacement. 2. COPD. 3. Hypertension. 4. Rheumatoid arthritis. 5. Obesity. 6. Obstructive sleep apnea, noncompliant. 7. CHF. 8. Questionable fibromyalgia. 9. Gastric esophageal reflux. PAST SURGICAL HISTORY: Status post hysterectomy, cholecystectomy, pacemaker implantation. Neck, back and hip surgery. She also had carpal tunnel release. ALLERGIES: Multiple medications: Please see the list. She is not allergic to any antibiotics. REVIEW OF SYSTEMS: As indicated above. Otherwise, other systems could not be reviewed as a consequence of the patient being on BiPAP. CURRENT MEDICATION: List was reviewed. Home medication list was likewise reviewed. PHYSICAL EXAMINATION: VITAL SIGNS: The patient was afebrile. She was awake, alert, following commands. I did take her off BiPAP for a brief moment, she desaturated. HEENT: Eyes: The sclerae were nonicteric. NECK: Jugular venous distention was not elevated. No lymphadenopathy. CHEST: Full expansion. LUNGS: Crackles throughout both lung domínguez. No wheezes. CARDIOVASCULAR: Regular rate and rhythm with S1, S2, no S3. ABDOMEN: Soft, nontender, nondistended. EXTREMITIES: No clubbing, cyanosis or pitting edema. NEUROLOGIC: The patient was awake, alert, following commands. A detailed neuro exam was not performed. LABORATORY DATA: Reviewed. Again, there are reticular interstitial opacities bilaterally. White count was not elevated. Her microbiology from 07/31/2017 once again grew out Mycobacterium avium complex. IMPRESSION: 1. [id number] hypercapnic hypoxemic respiratory failure. 2. Acute exacerbation of chronic obstructive pulmonary disease. 3. 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 4. Rheumatoid arthritis. 5. Other comorbidities including obstructive sleep apnea, noncompliant with CPAP, depression, type 2 diabetes, fibromyalgia, and hypertension. PLAN: 1. We will initiate empiric antibiotics and steroids. 2. Nebulized treatments. 3. Continue BiPAP. 4. Repeat arterial blood gas. 5. Obtain CT chest, I will review it and make further recommendations. 6. Considering the patient's lack of symptoms, I would not treat the Mycobacterium avium complex that was grown back in July 2017. Depending on the CT scan of the chest, we may repeat bronchoscopy and obtain further cultures. Dr. Castelan, I do appreciate the privilege in sharing in the patient's care. MEDINA PAYNE MD DR: RUSSELL/ben JOB#: [id number] / [id number]
[2018-06-05] MEDS: PANTOPRAZOLE 40 MG TABLET.DR. PO SCH (07:40)
[2018-06-05] MEDS: amLODIPine BESYLATE 5 MG TABLET PO SCH (07:41)
[2018-06-05] MEDS: CARVEDILOL 12.5 MG TABLET. PO SCH ×2 (07:41→18:01)
[2018-06-05] MEDS: ALPRAZolam 0.5 MG TABLET PO SCH ×2 (07:42→20:35)
--- NOTE | 2018-06-05 09:13 | PDOC ---
PULMONARY PROGRESS NOTES Subjective PT NOT MORE SOA Vitals Vital Signs Date Time Temp Pulse Resp B/P (MAP) Pulse Ox O2 Delivery O2 Flow Rate FiO2 06/05/18 08:30 96 Nasal Cannula 5.0 06/05/18 08:00 98.0 61 18 157/62 (93) 98.0 ROS: No Nausea, No Chest Pain, No Abdominal Pain, No Increase Cough General: Alert Lungs: Crackles Cardiovascular: S1, S2 Abdomen: Soft, Non-tender Neuro Exam: Alert Extremities: No Edema Skin: Warm Labs Laboratory Tests Test 06/04/18 10:20 06/04/18 10:50 06/04/18 16:35 06/05/18 04:30 White Blood Count 7.0 x10^3/uL (4.0-11.0) 5.1 x10^3/uL (4.0-11.0) Red Blood Count 3.87 x10^6/uL (3.50-5.40) 4.10 x10^6/uL (3.50-5.40) Hemoglobin 10.9 g/dL (12.0-15.5) 11.5 g/dL (12.0-15.5) Hematocrit 34.2 % (36.0-47.0) 35.7 % (36.0-47.0) Mean Corpuscular Volume 89 fL (79-100) 87 fL (79-100) Mean Corpuscular Hemoglobin 28 pg (25-35) 28 pg (25-35) Mean Corpuscular Hemoglobin Concent 32 g/dL (31-37) 32 g/dL (31-37) Red Cell Distribution Width 15.3 % (11.5-14.5) 15.0 % (11.5-14.5) Platelet Count 178 x10^3/uL (140-400) 193 x10^3/uL (140-400) Neutrophils (%) (Auto) 74 % (31-73) 87 % (31-73) Lymphocytes (%) (Auto) 17 % (24-48) 11 % (24-48) Monocytes (%) (Auto) 6 % (0-9) 2 % (0-9) Eosinophils (%) (Auto) 3 % (0-3) 0 % (0-3) Basophils (%) (Auto) 0 % (0-3) 0 % (0-3) Neutrophils # (Auto) 5.2 x10^3uL (1.8-7.7) 4.5 x10^3uL (1.8-7.7) Lymphocytes # (Auto) 1.2 x10^3/uL (1.0-4.8) 0.6 x10^3/uL (1.0-4.8) Monocytes # (Auto) 0.4 x10^3/uL (0.0-1.1) 0.1 x10^3/uL (0.0-1.1) Eosinophils # (Auto) 0.2 x10^3/uL (0.0-0.7) 0.0 x10^3/uL (0.0-0.7) Basophils # (Auto) 0.0 x10^3/uL (0.0-0.2) 0.0 x10^3/uL (0.0-0.2) Prothrombin Time 13.9 SEC (11.7-14.0) Prothromb Time International Ratio 1.1 (0.8-1.1) Sodium Level 138 mmol/L (136-145) 135 mmol/L (136-145) Potassium Level 4.7 mmol/L (3.5-5.1) 3.9 mmol/L (3.5-5.1) Chloride Level 98 mmol/L (98-107) 94 mmol/L (98-107) Carbon Dioxide Level 36 mmol/L (21-32) 37 mmol/L (21-32) Anion Gap 4 (6-14) 4 (6-14) Blood Urea Nitrogen 14 mg/dL (7-20) 14 mg/dL (7-20) Creatinine 0.9 mg/dL (0.6-1.0) 0.9 mg/dL (0.6-1.0) Estimated GFR (Cockcroft-Gault) 59.4 59.4 BUN/Creatinine Ratio 16 (6-20) 16 (6-20) Glucose Level 106 mg/dL (70-99) 155 mg/dL (70-99) Lactic Acid Level 0.7 mmol/L (0.4-2.0) Calcium Level 9.1 mg/dL (8.5-10.1) 9.1 mg/dL (8.5-10.1) Total Bilirubin 0.4 mg/dL (0.2-1.0) 0.7 mg/dL (0.2-1.0) Aspartate Amino Transf (AST/SGOT) 22 U/L (15-37) 17 U/L (15-37) Alanine Aminotransferase (ALT/SGPT) 15 U/L (14-59) 13 U/L (14-59) Alkaline Phosphatase 85 U/L (46-116) 73 U/L (46-116) Troponin I Quantitative < 0.017 ng/mL (0.000-0.055) < 0.017 ng/mL (0.000-0.055) IM-Geq-C-Type Natriuretic Peptide 1550 pg/mL (0-449) Total Protein 7.2 g/dL (6.4-8.2) 7.6 g/dL (6.4-8.2) Albumin 3.4 g/dL (3.4-5.0) 3.1 g/dL (3.4-5.0) Albumin/Globulin Ratio 0.9 (1.0-1.7) 0.7 (1.0-1.7) O2 Saturation 89 % (92-99) Arterial Blood pH 7.29 (7.35-7.45) Arterial Blood pCO2 at Patient Temp 80 mmHg (35-46) Arterial Blood pO2 at Patient Temp 60 mmHg (65-108) Arterial Blood HCO3 38 mmol/L (21-28) Arterial Blood Base Excess 9 mmol/L (-3-3) FiO2 40% nc Segmented Neutrophils % 93 % (35-66) Lymphocytes % 5 % (24-48) Monocytes % 2 % (0-10) Platelet Estimate Adequate (ADEQUATE) Large Platelets Occ Giant Platelets Anisocytosis Slight Triglycerides Level 125 mg/dL (0-150) Cholesterol Level 183 mg/dL (0-200) LDL Cholesterol, Calculated 96 mg/dL (0-100) VLDL Cholesterol, Calculated 25 mg/dL (0-40) Non-HDL Cholesterol Calculated 121 mg/dL (0-129) HDL Cholesterol 62 mg/dL (40-60) Cholesterol/HDL Ratio 3.0 Test 06/05/18 08:23 Glucose (Fingerstick) 140 mg/dL (70-99) Laboratory Tests Test 06/04/18 10:20 06/04/18 10:50 06/04/18 16:35 06/05/18 04:30 White Blood Count 7.0 x10^3/uL (4.0-11.0) 5.1 x10^3/uL (4.0-11.0) Red Blood Count 3.87 x10^6/uL (3.50-5.40) 4.10 x10^6/uL (3.50-5.40) Hemoglobin 10.9 g/dL (12.0-15.5) 11.5 g/dL (12.0-15.5) Hematocrit 34.2 % (36.0-47.0) 35.7 % (36.0-47.0) Mean Corpuscular Volume 89 fL (79-100) 87 fL (79-100) Mean Corpuscular Hemoglobin 28 pg (25-35) 28 pg (25-35) Mean Corpuscular Hemoglobin Concent 32 g/dL (31-37) 32 g/dL (31-37) Red Cell Distribution Width 15.3 % (11.5-14.5) 15.0 % (11.5-14.5) Platelet Count 178 x10^3/uL (140-400) 193 x10^3/uL (140-400) Neutrophils (%) (Auto) 74 % (31-73) 87 % (31-73) Lymphocytes (%) (Auto) 17 % (24-48) 11 % (24-48) Monocytes (%) (Auto) 6 % (0-9) 2 % (0-9) Eosinophils (%) (Auto) 3 % (0-3) 0 % (0-3) Basophils (%) (Auto) 0 % (0-3) 0 % (0-3) Neutrophils # (Auto) 5.2 x10^3uL (1.8-7.7) 4.5 x10^3uL (1.8-7.7) Lymphocytes # (Auto) 1.2 x10^3/uL (1.0-4.8) 0.6 x10^3/uL (1.0-4.8) Monocytes # (Auto) 0.4 x10^3/uL (0.0-1.1) 0.1 x10^3/uL (0.0-1.1) Eosinophils # (Auto) 0.2 x10^3/uL (0.0-0.7) 0.0 x10^3/uL (0.0-0.7) Basophils # (Auto) 0.0 x10^3/uL (0.0-0.2) 0.0 x10^3/uL (0.0-0.2) Prothrombin Time 13.9 SEC (11.7-14.0) Prothromb Time International Ratio 1.1 (0.8-1.1) Sodium Level 138 mmol/L (136-145) 135 mmol/L (136-145) Potassium Level 4.7 mmol/L (3.5-5.1) 3.9 mmol/L (3.5-5.1) Chloride Level 98 mmol/L (98-107) 94 mmol/L (98-107) Carbon Dioxide Level 36 mmol/L (21-32) 37 mmol/L (21-32) Anion Gap 4 (6-14) 4 (6-14) Blood Urea Nitrogen 14 mg/dL (7-20) 14 mg/dL (7-20) Creatinine 0.9 mg/dL (0.6-1.0) 0.9 mg/dL (0.6-1.0) Estimated GFR (Cockcroft-Gault) 59.4 59.4 BUN/Creatinine Ratio 16 (6-20) 16 (6-20) Glucose Level 106 mg/dL (70-99) 155 mg/dL (70-99) Lactic Acid Level 0.7 mmol/L (0.4-2.0) Calcium Level 9.1 mg/dL (8.5-10.1) 9.1 mg/dL (8.5-10.1) Total Bilirubin 0.4 mg/dL (0.2-1.0) 0.7 mg/dL (0.2-1.0) Aspartate Amino Transf (AST/SGOT) 22 U/L (15-37) 17 U/L (15-37) Alanine Aminotransferase (ALT/SGPT) 15 U/L (14-59) 13 U/L (14-59) Alkaline Phosphatase 85 U/L (46-116) 73 U/L (46-116) Troponin I Quantitative < 0.017 ng/mL (0.000-0.055) < 0.017 ng/mL (0.000-0.055) ML-Zxk-A-Type Natriuretic Peptide 1550 pg/mL (0-449) Total Protein 7.2 g/dL (6.4-8.2) 7.6 g/dL (6.4-8.2) Albumin 3.4 g/dL (3.4-5.0) 3.1 g/dL (3.4-5.0) Albumin/Globulin Ratio 0.9 (1.0-1.7) 0.7 (1.0-1.7) O2 Saturation 89 % (92-99) Arterial Blood pH 7.29 (7.35-7.45) Arterial Blood pCO2 at Patient Temp 80 mmHg (35-46) Arterial Blood pO2 at Patient Temp 60 mmHg (65-108) Arterial Blood HCO3 38 mmol/L (21-28) Arterial Blood Base Excess 9 mmol/L (-3-3) FiO2 40% nc Segmented Neutrophils % 93 % (35-66) Lymphocytes % 5 % (24-48) Monocytes % 2 % (0-10) Platelet Estimate Adequate (ADEQUATE) Large Platelets Occ Giant Platelets Anisocytosis Slight Triglycerides Level 125 mg/dL (0-150) Cholesterol Level 183 mg/dL (0-200) LDL Cholesterol, Calculated 96 mg/dL (0-100) VLDL Cholesterol, Calculated 25 mg/dL (0-40) Non-HDL Cholesterol Calculated 121 mg/dL (0-129) HDL Cholesterol 62 mg/dL (40-60) Cholesterol/HDL Ratio 3.0 Test 06/05/18 08:23 Glucose (Fingerstick) 140 mg/dL (70-99) Medications Active Scripts Medications Dose Route/Sig Max Daily Dose Days Date Category Lyrica (Pregabalin) 50 Mg Capsule 50 Mg PO BID 03/14/18 Rx Duoneb 0.5-3(2.5) Mg/3 Ml (Albuterol/Ipratropium) 3 Ml Ampul.neb 3 Ml NEB PRN Q4HRS PRN 03/13/18 Reported Tylenol (Acetaminophen) 325 Mg Tablet 1 Tab PO PRN Q4HRS 03/13/18 Reported Ambien (Zolpidem Tartrate) 5 Mg Tablet 5 Mg PO PRN QHS PRN 03/13/18 Reported Hydrocodone-Apap 5-325 (Hydrocodone Bit/Acetaminophen) 1 Tab Tablet 1 Tab PO PRN Q8HRS PRN 03/13/18 Reported Alprazolam 0.25 Mg Tablet 1 Tab PO DAILY17 03/13/18 Reported Melatonin 3 Mg Tablet 10 Mg PO DAILY 03/13/18 Reported Carvedilol 25 Mg Tablet 12.5 Mg PO BIDWMEALS 03/13/18 Reported Zoloft (Sertraline Hcl) 50 Mg Tablet 1 Tab PO DAILY 03/13/18 Reported Omeprazole 20 Mg Capsule.dr 1 Cap PO DAILY 03/13/18 Reported Vitamin D (Cholecalciferol (Vitamin D3)) 1,000 Unit Capsule 1 Cap PO DAILY 06/24/17 Reported Advair 250-50 Diskus (Fluticasone/Salmeterol) 1 Each Disk.w.dev 1 Puff IH BID 06/24/17 Reported Multi-Day Vitamins (Multivitamin) 1 Each Tablet 1 Tab PO DAILY 01/18/16 Reported Colace (Docusate Sodium) 100 Mg Capsule 100 Mg PO BID 04/11/13 Reported Impression . IMPRESSION: 1. Awwxe-sh-zsofleu hypercapnic hypoxemic respiratory failure. 2. Acute exacerbation of chronic obstructive pulmonary disease. 3. 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 4. Rheumatoid arthritis. 5. Other comorbidities including obstructive sleep apnea, noncompliant with CPAP, depression, type 2 diabetes, fibromyalgia, and hypertension. CT CHEST IMPRESSION: 1. Patchy airspace opacities identified in the bilateral upper lobes and bibasilar lungs likely atelectasis or infiltrates. Small bilateral pleural effusions. . Coronary artery calcifications. Plan . CT BETTER NO NEED TO TREAT MAC FROM ONE YEAR AGO WILL CONTINUE ANTIBX TRANSFER ;OUT OF ICU 1. We will initiate empiric antibiotics and steroids. 2. Nebulized treatments. 3. Continue BiPAP. 4. Repeat arterial blood gas. 5. CT REVIEWED 6. Considering the patient's lack of symptoms, I would not treat the Mycobacterium avium complex that was grown back in July 2017. MEDINA PAYNE MD Jun 05, 2018 09:13
--- NOTE | 2018-06-05 09:56 | RAD ---
Examination: CT chest without contrast HISTORY: History of respiratory failure COMPARISON: 07/28/2017 TECHNIQUE: Axial CT images of chest were performed without IV contrast. Coronal and sagittal reformats are performed. Exposure: One or more of the following individualized dose reduction techniques were utilized for this examination: 1. Automated exposure control 2. Adjustment of the mA and/or kV according to patient size 3. Use of iterative reconstruction technique FINDINGS: The central airways are patent. Moderate cardiomegaly. Coronary artery calcifications identified. Calcification of the mitral valve identified. Left-sided cardiac pacer is again noted. Coronary artery calcifications identified. Few prominent mediastinal and hilar lymph nodes similar to prior exam. There are patchy airspace opacities identified in the bilateral upper lobes and the bibasilar lungs likely atelectasis or infiltrates. Small bilateral pleural effusions identified, right greater than left. The visualized noncontrasted liver, adrenals grossly appears unremarkable. Few calcified splenic granulomas identified Moderate degenerative changes thoracic spine. IMPRESSION: 1. Patchy airspace opacities identified in the bilateral upper lobes and bibasilar lungs likely atelectasis or infiltrates. Small bilateral pleural effusions. . Coronary artery calcifications. Electronically signed by: Carl Nelson MD (06/05/2018 9:53 AM) [id number]
[2018-06-05] MEDS: methylPREDNISolone SOD SUCC PF 125 MG/2 ML VIAL. IV SCH ×2 (09:59→20:35)
[2018-06-05] MEDS: DOXYCYCLINE HYCLATE 100 MG in IV DEXTROSE 5% 100ML 100 ML IV SCH ×2 (10:01→20:34)
[2018-06-05] MEDS: DOCUSATE SODIUM 100 MG CAPSULE. PO SCH ×2 (10:43→20:35)
[2018-06-05] MEDS: PREGABALIN 75 MG CAPSULE PO SCH ×2 (10:44→20:35)
[2018-06-05] MEDS: SERTRALINE 50 MG TABLET. PO SCH (10:44)
[2018-06-05] MEDS: HYDROcodone/APAP 5/325MG 1 TAB TABLET PO PRN (10:45)
[2018-06-05] MEDS ORDERED: METHYL SALICYLATE/MENTHOL TOPICAL OINTMENT 29GM TUBE. TP PRN (14:30)
--- NOTE | 2018-06-05 14:38 | CARD ---
MR#: [id number] Date of Study: 06/05/2018 Ordering Physician: KARAN KIMBLE, Referring Physician: KARAN KIMBLE, Tech: Jada Walker APPROVED REPORT EXAM: Two-dimensional and M-mode echocardiogram with Doppler and color Doppler. Other Information Quality : AverageHR: 60bpm Rhythm : Pacemaker INDICATION Dyspnea Congestive Heart Failure Surgery/Intervention Pacemaker: Date: 04/2017 RISK FACTORS Hypertension Diabetes 2D DIMENSIONS RVDd3.0 (2.9-3.5cm)Left Atrium(2D)4.1 (1.6-4.0cm) IVSd1.4 (0.7-1.1cm)Aortic Root(2D)2.7 (2.0-3.7cm) LVDd4.3 (3.9-5.9cm)LVOT Diameter2.0 (1.8-2.4cm) PWd1.1 (0.7-1.1cm)LVDs2.9 (2.5-4.0cm) FS (%) 32.8 %SV50.2 ml LVEF(%)61.6 (>50%) Aortic Valve AoV Peak Quique.206.5cm/sAoV VTI48.8cm AO Peak GR.17.1mmHgLVOT Peak Quique.162.7cm/s AO Mean GR.10mmHgAVA (VMAX)2.40cm2 Mitral Valve MV E Fivhlxoz828.6cm/sMV DECEL [id number] MV A Pthvshhq616.6cm/sE/A Ratio1.2 Pulmonary Valve PV Peak Adkfvndg886.8cm/s Tricuspid Valve TR P. Movlbtjc271wx/sRAP [id number] TR Peak Gr.14qmLbTISI32neKy Pulmonary Vein S1 Amovghny47.9cm/sD2 Uyywwcuv81.2cm/s PVa [id number] LEFT VENTRICLE The left ventricle is normal size. There is mild to moderate concentric left ventricular hypertrophy. The left ventricular systolic function is normal. The Ejection Fraction is 55-60%. There is normal L V segmental wall motion. The left ventricular diastolic function and filling is normal for age. RIGHT VENTRICLE The right ventricle is normal size. There is normal right ventricular wall thickness. The right ventr icular systolic function is normal. There is a pacemaker lead in the right ventricle. ATRIA The left atrium is mildly dilated. There is a pacemaker lead seen in the right atrium. The right atri um size is normal. The interatrial septum is intact with no evidence for an atrial septal defect or p atent foramen ovale as noted on 2-D or Doppler imaging. AORTIC VALVE The aortic valve is calcified but opens well. Doppler and Color Flow revealed no significant aortic r egurgitation. There is no significant aortic valvular stenosis. MITRAL VALVE The mitral valve is calcified and displays decreased opening. Mitral annular calcification is moderat e. There is no evidence of mitral valve prolapse. There is no mitral valve stenosis. Trace mitral reg urgitation. TRICUSPID VALVE The tricuspid valve is normal in structure and function. Doppler and Color Flow revealed trace to mil d tricuspid regurgitation with an estimated PAP of 60 mmHg. There is moderate pulmonary hypertension. There is no tricuspid valve stenosis. PULMONIC VALVE The pulmonary valve is normal in structure and function. Doppler and Color Flow revealed mild pulmoni c valvular regurgitation. GREAT VESSELS The aortic root is normal in size. The IVC is normal in size and collapses <50% with inspiration. PERICARDIAL EFFUSION There is no evidence of significant pericardial effusion. Critical Notification Critical Value: No <Conclusion> The left ventricular systolic function is normal. The Ejection Fraction is 55-60%. There is normal LV segmental wall motion. There is a pacemaker lead in the right atrium and right ventricle. The mitral valve is calcified and displays decreased opening but there is no obvious stenosis. Trace to mild tricuspid regurgitation with an estimated PAP of 60 mmHg. There is moderate pulmonary hypertension. There is no evidence of significant pericardial effusion. Signed by : David Jones, Electronically Approved : 06/05/2018 14:38:17
--- NOTE | 2018-06-05 14:59 | PDOC ---
PROGRESS NOTES Subjective Subjective seen earlier today. ct scan of chest noted. infiltrates upper and lower lung lobes. possible atelactasis vs infiltrate. denies cough. afebrile. on oxygen NC. echo with preserved LVEF with mod pulmonary HTN. Objective Objective Vital Signs Date Time Temp Pulse Resp B/P (MAP) Pulse Ox O2 Delivery O2 Flow Rate FiO2 06/05/18 14:20 97.5 64 18 116/76 (89) 98 Nasal Cannula 3.0 97.5 Intake and Output 06/05/18 07:00 Intake Total 350 ml Output Total 1800 ml Balance -1450 ml IV Total 350 ml Output Urine Total 1800 ml # Voids 2 Physical Exam Abdomen: Soft Heart: Regular rate, Normal S1, Normal S2 Extremities: No edema General: Alert HEENT: Atraumatic Lungs: Other (decreased breath sounds) Neuro: Normal speech Psych/Mental Status: Mental status NL Skin: No rashes Assessment Assessment Problems1. Acute on chronic hypoxic and hypercapnic respiratory failure. 2. Acute exacerbation of chronic obstructive pulmonary disease. 3. lung infiltrates vs atelactasis on ct chest 4. Chronic diastolic congestive heart failure. 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 6. Hypertension. 7. Chronic pain, narcotic dependent. Medical Problems: (1) Acute on chronic respiratory failure Status: Acute (2) COPD (chronic obstructive pulmonary disease) Status: Acute Plan Plan of Care continue antibiotics and nebulizer rx and iv solumedrol and oxygen Comment Review of Relevant I have reviewed the following items lizbeth (where applicable) has been applied. Labs Laboratory Tests Test 06/04/18 10:20 06/04/18 10:50 06/04/18 16:35 06/05/18 04:30 White Blood Count 7.0 x10^3/uL (4.0-11.0) 5.1 x10^3/uL (4.0-11.0) Red Blood Count 3.87 x10^6/uL (3.50-5.40) 4.10 x10^6/uL (3.50-5.40) Hemoglobin 10.9 g/dL (12.0-15.5) 11.5 g/dL (12.0-15.5) Hematocrit 34.2 % (36.0-47.0) 35.7 % (36.0-47.0) Mean Corpuscular Volume 89 fL (79-100) 87 fL (79-100) Mean Corpuscular Hemoglobin 28 pg (25-35) 28 pg (25-35) Mean Corpuscular Hemoglobin Concent 32 g/dL (31-37) 32 g/dL (31-37) Red Cell Distribution Width 15.3 % (11.5-14.5) 15.0 % (11.5-14.5) Platelet Count 178 x10^3/uL (140-400) 193 x10^3/uL (140-400) Neutrophils (%) (Auto) 74 % (31-73) 87 % (31-73) Lymphocytes (%) (Auto) 17 % (24-48) 11 % (24-48) Monocytes (%) (Auto) 6 % (0-9) 2 % (0-9) Eosinophils (%) (Auto) 3 % (0-3) 0 % (0-3) Basophils (%) (Auto) 0 % (0-3) 0 % (0-3) Neutrophils # (Auto) 5.2 x10^3uL (1.8-7.7) 4.5 x10^3uL (1.8-7.7) Lymphocytes # (Auto) 1.2 x10^3/uL (1.0-4.8) 0.6 x10^3/uL (1.0-4.8) Monocytes # (Auto) 0.4 x10^3/uL (0.0-1.1) 0.1 x10^3/uL (0.0-1.1) Eosinophils # (Auto) 0.2 x10^3/uL (0.0-0.7) 0.0 x10^3/uL (0.0-0.7) Basophils # (Auto) 0.0 x10^3/uL (0.0-0.2) 0.0 x10^3/uL (0.0-0.2) Prothrombin Time 13.9 SEC (11.7-14.0) Prothromb Time International Ratio 1.1 (0.8-1.1) Sodium Level 138 mmol/L (136-145) 135 mmol/L (136-145) Potassium Level 4.7 mmol/L (3.5-5.1) 3.9 mmol/L (3.5-5.1) Chloride Level 98 mmol/L (98-107) 94 mmol/L (98-107) Carbon Dioxide Level 36 mmol/L (21-32) 37 mmol/L (21-32) Anion Gap 4 (6-14) 4 (6-14) Blood Urea Nitrogen 14 mg/dL (7-20) 14 mg/dL (7-20) Creatinine 0.9 mg/dL (0.6-1.0) 0.9 mg/dL (0.6-1.0) Estimated GFR (Cockcroft-Gault) 59.4 59.4 BUN/Creatinine Ratio 16 (6-20) 16 (6-20) Glucose Level 106 mg/dL (70-99) 155 mg/dL (70-99) Lactic Acid Level 0.7 mmol/L (0.4-2.0) Calcium Level 9.1 mg/dL (8.5-10.1) 9.1 mg/dL (8.5-10.1) Total Bilirubin 0.4 mg/dL (0.2-1.0) 0.7 mg/dL (0.2-1.0) Aspartate Amino Transf (AST/SGOT) 22 U/L (15-37) 17 U/L (15-37) Alanine Aminotransferase (ALT/SGPT) 15 U/L (14-59) 13 U/L (14-59) Alkaline Phosphatase 85 U/L (46-116) 73 U/L (46-116) Troponin I Quantitative < 0.017 ng/mL (0.000-0.055) < 0.017 ng/mL (0.000-0.055) HJ-Xtn-M-Type Natriuretic Peptide 1550 pg/mL (0-449) Total Protein 7.2 g/dL (6.4-8.2) 7.6 g/dL (6.4-8.2) Albumin 3.4 g/dL (3.4-5.0) 3.1 g/dL (3.4-5.0) Albumin/Globulin Ratio 0.9 (1.0-1.7) 0.7 (1.0-1.7) O2 Saturation 89 % (92-99) Arterial Blood pH 7.29 (7.35-7.45) Arterial Blood pCO2 at Patient Temp 80 mmHg (35-46) Arterial Blood pO2 at Patient Temp 60 mmHg (65-108) Arterial Blood HCO3 38 mmol/L (21-28) Arterial Blood Base Excess 9 mmol/L (-3-3) FiO2 40% nc Segmented Neutrophils % 93 % (35-66) Lymphocytes % 5 % (24-48) Monocytes % 2 % (0-10) Platelet Estimate Adequate (ADEQUATE) Large Platelets Occ Giant Platelets Anisocytosis Slight Triglycerides Level 125 mg/dL (0-150) Cholesterol Level 183 mg/dL (0-200) LDL Cholesterol, Calculated 96 mg/dL (0-100) VLDL Cholesterol, Calculated 25 mg/dL (0-40) Non-HDL Cholesterol Calculated 121 mg/dL (0-129) HDL Cholesterol 62 mg/dL (40-60) Cholesterol/HDL Ratio 3.0 Test 06/05/18 08:23 06/05/18 11:30 Glucose (Fingerstick) 140 mg/dL (70-99) 114 mg/dL (70-99) Laboratory Tests Test 06/04/18 16:35 06/05/18 04:30 06/05/18 08:23 06/05/18 11:30 Troponin I Quantitative < 0.017 ng/mL (0.000-0.055) White Blood Count 5.1 x10^3/uL (4.0-11.0) Red Blood Count 4.10 x10^6/uL (3.50-5.40) Hemoglobin 11.5 g/dL (12.0-15.5) Hematocrit 35.7 % (36.0-47.0) Mean Corpuscular Volume 87 fL (79-100) Mean Corpuscular Hemoglobin 28 pg (25-35) Mean Corpuscular Hemoglobin Concent 32 g/dL (31-37) Red Cell Distribution Width 15.0 % (11.5-14.5) Platelet Count 193 x10^3/uL (140-400) Neutrophils (%) (Auto) 87 % (31-73) Lymphocytes (%) (Auto) 11 % (24-48) Monocytes (%) (Auto) 2 % (0-9) Eosinophils (%) (Auto) 0 % (0-3) Basophils (%) (Auto) 0 % (0-3) Neutrophils # (Auto) 4.5 x10^3uL (1.8-7.7) Lymphocytes # (Auto) 0.6 x10^3/uL (1.0-4.8) Monocytes # (Auto) 0.1 x10^3/uL (0.0-1.1) Eosinophils # (Auto) 0.0 x10^3/uL (0.0-0.7) Basophils # (Auto) 0.0 x10^3/uL (0.0-0.2) Segmented Neutrophils % 93 % (35-66) Lymphocytes % 5 % (24-48) Monocytes % 2 % (0-10) Platelet Estimate Adequate (ADEQUATE) Large Platelets Occ Giant Platelets Anisocytosis Slight Sodium Level 135 mmol/L (136-145) Potassium Level 3.9 mmol/L (3.5-5.1) Chloride Level 94 mmol/L (98-107) Carbon Dioxide Level 37 mmol/L (21-32) Anion Gap 4 (6-14) Blood Urea Nitrogen 14 mg/dL (7-20) Creatinine 0.9 mg/dL (0.6-1.0) Estimated GFR (Cockcroft-Gault) 59.4 BUN/Creatinine Ratio 16 (6-20) Glucose Level 155 mg/dL (70-99) Calcium Level 9.1 mg/dL (8.5-10.1) Total Bilirubin 0.7 mg/dL (0.2-1.0) Aspartate Amino Transf (AST/SGOT) 17 U/L (15-37) Alanine Aminotransferase (ALT/SGPT) 13 U/L (14-59) Alkaline Phosphatase 73 U/L (46-116) Total Protein 7.6 g/dL (6.4-8.2) Albumin 3.1 g/dL (3.4-5.0) Albumin/Globulin Ratio 0.7 (1.0-1.7) Triglycerides Level 125 mg/dL (0-150) Cholesterol Level 183 mg/dL (0-200) LDL Cholesterol, Calculated 96 mg/dL (0-100) VLDL Cholesterol, Calculated 25 mg/dL (0-40) Non-HDL Cholesterol Calculated 121 mg/dL (0-129) HDL Cholesterol 62 mg/dL (40-60) Cholesterol/HDL Ratio 3.0 Glucose (Fingerstick) 140 mg/dL (70-99) 114 mg/dL (70-99) Microbiology 06/04/18 Blood Culture - Preliminary, Resulted NO GROWTH AFTER 1 DAY Medications Current Medications Albuterol/ Ipratropium (Duoneb) 3 ml 1X ONCE NEB Last administered on 06/04/18a t 10:20; Start 06/04/18 at 10:15; Stop 06/04/18 at 10:18; Status DC Methylprednisolone Sodium Succinate (SOLU-Medrol 125MG VIAL) 125 mg 1X ONCE IV Last administered on 06/04/18at 10:31; Start 06/04/18 at 10:15; Stop 06/04/18 at 10:18; Status DC Albuterol/ Ipratropium (Duoneb) 3 ml STK-MED ONCE .ROUTE ; Start 06/04/18 at 10:18; Stop 06/04/18 at 10:19; Status DC Piperacillin Sod/ Tazobactam Sod (Zosyn Per Pharmacy) 1 each PRN DAILY PRN MC SEE COMMENTS; Start 06/04/18 at 11:00 Piperacillin Sod/ Tazobactam Sod 3.375 gm/Sodium Chloride 50 ml @ 100 mls/hr Q6HRS IV Last administered on 06/05/18at 12:26; Start 06/04/18 at 12:00 Furosemide (Lasix) 20 mg 1X ONCE IVP Last administered on 06/04/18at 11:30; Start 06/04/18 at 11:30; Stop 06/04/18 at 11:31; Status DC Albuterol/ Ipratropium (Duoneb) 3 ml RTQID NEB Last administered on 06/05/18at 12:18; Start 06/04/18 at 12:00; Stop 06/05/18 at 11:59; Status DC Lorazepam (Ativan) 0.5 mg 1X ONCE IV Last administered on 06/04/18at 12:27; Start 06/04/18 at 12:30; Stop 06/04/18 at 12:31; Status DC Doxycycline Hyclate 100 mg/ Dextrose 100 ml @ 50 mls/hr Q12HR IV Last administered on 06/05/18at 10:01; Start 06/04/18 at 14:00 Albuterol Sulfate (Ventolin Neb Soln) 2.5 mg PRN Q2HR PRN NEB DYSPNEA; Start 06/04/18 at 13:45 Albuterol/ Ipratropium (Duoneb) 3 ml RTQID NEB Last administered on 06/04/18 19:41; Start 06/04/18 at 13:00 Methylprednisolone Sodium Succinate (SOLU-Medrol 125MG VIAL) 80 mg Q12HR IV Last administered on 06/04/18at 15:48; Start 06/04/18 at 14:00; Stop 06/04/18 at 16:14; Status DC Enoxaparin Sodium (Lovenox 40mg Syringe) 40 mg Q24H SQ Last administered on 06/04/18 17:29; Start 06/04/18 at 14:00 Methylprednisolone Sodium Succinate (SOLU-Medrol 125MG VIAL) 40 mg Q12HR IV Last administered on 06/05/18 09:59; Start 06/04/18 at 21:00 Enoxaparin Sodium (Lovenox 30mg Syringe) 30 mg Q24H SQ ; Start 06/04/18 at 16:15; Status UNV Docusate Sodium (Colace) 100 mg BID PO Last administered on 06/05/18 10:43; Start 06/04/18 at 21:00 Pregabalin (Lyrica) 75 mg BID PO Last administered on 06/05/18 10:44; Start 06/04/18 at 21:00 Carvedilol (Coreg) 25 mg BIDWMEALS PO Last administered on 06/05/18 07:41; Start 06/04/18 at 17:00 Sertraline HCl (Zoloft) 100 mg DAILY PO Last administered on 06/05/18 10:44; Start 06/05/18 at 09:00 Acetaminophen (Tylenol) 650 mg PRN Q6HRS PRN PO MILD PAIN / TEMP; Start 06/04/18 at 16:15 Pantoprazole Sodium (Protonix) 40 mg DAILYAC PO Last administered on 06/05/18 07:40; Start 06/05/18 at 07:30 Amlodipine Besylate (Norvasc) 5 mg DAILY PO Last administered on 06/05/18 07:41; Start 06/05/18 at 09:00 Non-Formulary Medication (Carvedilol (Coreg)) 25 mg BID PO ; Start 06/04/18 at 21:00; Status UNV Alprazolam (Xanax) 0.5 mg BID PO Last administered on 06/05/18at 07:42; Start 06/05/18 at 09:00 Fentanyl (Duragesic 12mcg/ Hr Patch) 1 patch Q72H TD Last administered on 06/05/18at 00:43; Start 06/05/18 at 01:00 Acetaminophen/ Hydrocodone Bitart (Lortab 5/325) 1 tab PRN Q8HRS PRN PO SEVERE PAIN Last administered on 06/05/18at 10:45; Start 06/05/18 at 00:15 Alprazolam (Xanax) 0.5 mg 1X ONCE PO Last administered on 06/05/18at 00:26; Start 06/05/18 at 00:30; Stop 06/05/18 at 00:31; Status DC Multi-Ingredient Ointment (Analgesic Stringer) 1 shady PRN QID PRN TP MUSCLE PAIN; Start 06/05/18 at 14:30 Lactobacillus Rhamnosus (Culturelle) 1 cap BID PO ; Start 06/05/18 at 21:00 Active Scripts Active Reported Senna (Sennosides) 8.6 Mg Tablet 8.6 Mg PO BID Zoloft (Sertraline Hcl) 100 Mg Tablet 100 Mg PO DAILY Amlodipine Besylate 5 Mg Tablet 5 Mg PO DAILY Coreg (Carvedilol) 25 Mg Tablet 25 Mg PO BID Lidocaine 1 Each Adh..patch 1 Each TP DAILY FENTANYL 12mcg/hr (Fentanyl) 1 Each Patch.td72 1 Patch TD Q72H Xanax (Alprazolam) 0.5 Mg Tablet 1 Tab PO BID Lyrica (Pregabalin) 75 Mg Capsule 75 Mg PO BID Omeprazole 20 Mg Capsule.dr 20 Mg PO BID Duoneb 0.5-3(2.5) Mg/3 Ml (Albuterol/Ipratropium) 3 Ml Ampul.neb 3 Ml NEB PRN Q4HRS PRN Ambien (Zolpidem Tartrate) 5 Mg Tablet 5 Mg PO PRN QHS PRN Hydrocodone-Apap 5-325 (Hydrocodone Bit/Acetaminophen) 1 Tab Tablet 1 Tab PO PRN Q8HRS PRN Melatonin 3 Mg Tablet 10 Mg PO DAILY Vitamin D (Cholecalciferol (Vitamin D3)) 1,000 Unit Capsule 1 Cap PO DAILY Advair 250-50 Diskus (Fluticasone/Salmeterol) 1 Each Disk.w.dev 1 Puff IH BID Multi-Day Vitamins (Multivitamin) 1 Each Tablet 1 Tab PO DAILY Colace (Docusate Sodium) 100 Mg Capsule 100 Mg PO BID Vitals/I & O Vital Sign - Last 24 Hours 06/04/18 06/04/18 06/04/18 06/04/18 15:00 16:00 16:00 17:00 Temp 97.3 97.3 Pulse 84 68 74 Resp 23 17 15 B/P (MAP) 146/53 (84) 123/57 (79) 150/63 (92) Pulse Ox 98 98 98 O2 Delivery BiPAP/CPAP BiPAP/CPAP Bi-pap BiPAP/CPAP 06/04/18 06/04/18 06/04/18 06/04/18 17:00 17:31 18:00 19:00 Pulse 78 74 83 Resp 18 18 B/P (MAP) 150/63 154/64 (94) 153/67 (95) Pulse Ox 97 99 95 O2 Delivery BiPAP/CPAP BiPAP/CPAP Nasal Cannula O2 Flow Rate 40.0 4.0 06/04/18 06/04/18 06/04/18 06/04/18 19:42 20:00 20:00 20:00 Temp 209.3 209.3 Pulse 72 Resp 24 B/P (MAP) 127/61 (83) Pulse Ox 91 95 O2 Delivery Nasal Cannula Nasal Cannula Nasal Cannula O2 Flow Rate 5.0 4.0 4.0 4.0 06/04/18 06/04/18 06/04/18 06/04/18 21:00 22:00 23:00 23:59 Temp 98.5 98.5 98.5 98.5 Pulse 80 82 125 Resp 17 19 24 B/P (MAP) 117/42 (67) 112/54 (73) 151/62 (91) Pulse Ox 97 97 92 O2 Delivery Nasal Cannula Nasal Cannula Nasal Cannula Nasal Cannula O2 Flow Rate 4.0 4.0 4.0 4.0 06/05/18 06/05/18 06/05/18 06/05/18 00:00 00:01 00:43 01:00 Temp 98.7 98.7 Pulse 84 92 Resp 17 16 21 B/P (MAP) 180/77 (111) 149/69 (95) Pulse Ox 94 92 95 O2 Delivery Nasal Cannula Nasal Cannula Nasal Cannula O2 Flow Rate 4.0 4.0 5.0 4.0 06/05/18 06/05/18 06/05/18 06/05/18 02:00 03:00 04:00 04:00 Temp 98.7 98.7 Pulse 82 65 88 Resp 10 10 14 B/P (MAP) 133/63 (86) 154/68 (96) 153/60 (91) Pulse Ox 98 98 97 O2 Delivery Nasal Cannula Nasal Cannula Nasal Cannula Nasal Cannula O2 Flow Rate 4.0 4.0 4.0 4.0 06/05/18 06/05/18 06/05/18 06/05/18 04:43 05:00 06:00 07:00 Temp 98.2 98.2 Pulse 90 80 80 Resp 10 16 20 B/P (MAP) 124/68 (86) 176/66 (102) 180/71 (107) Pulse Ox 97 97 97 94 O2 Delivery Nasal Cannula Nasal Cannula Nasal Cannula Nasal Cannula O2 Flow Rate 4.0 4.0 4.0 4.0 06/05/18 06/05/18 06/05/18 06/05/18 07:41 07:41 08:00 08:00 Temp 98.0 98.0 Pulse 85 75 61 Resp 18 B/P (MAP) 180/71 180/71 157/62 (93) Pulse Ox 94 O2 Delivery Nasal Cannula Nasal Cannula O2 Flow Rate 4.0 4.0 06/05/18 06/05/18 06/05/18 06/05/18 08:30 09:00 10:00 10:45 Temp 98.0 98.2 98.0 98.2 Pulse 66 68 Resp 18 20 B/P (MAP) 131/53 (79) 165/59 (94) Pulse Ox 96 91 98 O2 Delivery Nasal Cannula Nasal Cannula Nasal Cannula Nasal Cannula O2 Flow Rate 5.0 4.0 5.0 5.0 06/05/18 06/05/18 06/05/18 06/05/18 11:00 12:18 12:26 14:20 Temp 98.2 97.5 98.2 97.5 Pulse 60 64 Resp 18 18 B/P (MAP) 164/56 (92) 116/76 (89) Pulse Ox 97 98 98 O2 Delivery Nasal Cannula Nasal Cannula Nasal Cannula Nasal Cannula O2 Flow Rate 4.0 5.0 4.0 3.0 Intake and Output 06/04/18 06/04/18 06/05/18 15:00 23:00 07:00 Intake Total 50 ml 150 ml 150 ml Output Total 1000 ml 800 ml 0 ml Balance -950 ml -650 ml 150 ml KARAN KIMBLE MD Jun 05, 2018 14:59
--- NOTE | 2018-06-05 15:35 | NUR ---
Patient was transferred from ICU [address] [place] [address] with all personal belongings, wheelchair, dentures, glasses, and clothing. Called report to TAMAR Ortiz and TAMAR Jenkins.
--- NOTE | 2018-06-05 16:52 | PDOC ---
CARDIO Progress Notes Date and Time Date of Service 06/05/2018 Time of Evaluation 1300 Subjective Subjective: No Chest Pain, No shortness of breath, No Palpitations Vitals Vitals Vital Signs Date Time Temp Pulse Resp B/P (MAP) Pulse Ox O2 Delivery O2 Flow Rate FiO2 06/05/18 14:20 97.5 64 18 116/76 (89) 98 Nasal Cannula 3.0 97.5 Weight Weight [ ] Input and Output Intake and Output Intake and Output 06/05/18 07:00 Intake Total 350 ml Output Total 1800 ml Balance -1450 ml IV Total 350 ml Output Urine Total 1800 ml # Voids 2 Laboratory Labs Laboratory Tests Test 06/05/18 04:30 06/05/18 08:23 06/05/18 11:30 White Blood Count 5.1 x10^3/uL (4.0-11.0) Red Blood Count 4.10 x10^6/uL (3.50-5.40) Hemoglobin 11.5 g/dL (12.0-15.5) Hematocrit 35.7 % (36.0-47.0) Mean Corpuscular Volume 87 fL (79-100) Mean Corpuscular Hemoglobin 28 pg (25-35) Mean Corpuscular Hemoglobin Concent 32 g/dL (31-37) Red Cell Distribution Width 15.0 % (11.5-14.5) Platelet Count 193 x10^3/uL (140-400) Neutrophils (%) (Auto) 87 % (31-73) Lymphocytes (%) (Auto) 11 % (24-48) Monocytes (%) (Auto) 2 % (0-9) Eosinophils (%) (Auto) 0 % (0-3) Basophils (%) (Auto) 0 % (0-3) Neutrophils # (Auto) 4.5 x10^3uL (1.8-7.7) Lymphocytes # (Auto) 0.6 x10^3/uL (1.0-4.8) Monocytes # (Auto) 0.1 x10^3/uL (0.0-1.1) Eosinophils # (Auto) 0.0 x10^3/uL (0.0-0.7) Basophils # (Auto) 0.0 x10^3/uL (0.0-0.2) Segmented Neutrophils % 93 % (35-66) Lymphocytes % 5 % (24-48) Monocytes % 2 % (0-10) Platelet Estimate Adequate (ADEQUATE) Large Platelets Occ Giant Platelets Anisocytosis Slight Sodium Level 135 mmol/L (136-145) Potassium Level 3.9 mmol/L (3.5-5.1) Chloride Level 94 mmol/L (98-107) Carbon Dioxide Level 37 mmol/L (21-32) Anion Gap 4 (6-14) Blood Urea Nitrogen 14 mg/dL (7-20) Creatinine 0.9 mg/dL (0.6-1.0) Estimated GFR (Cockcroft-Gault) 59.4 BUN/Creatinine Ratio 16 (6-20) Glucose Level 155 mg/dL (70-99) Calcium Level 9.1 mg/dL (8.5-10.1) Total Bilirubin 0.7 mg/dL (0.2-1.0) Aspartate Amino Transf (AST/SGOT) 17 U/L (15-37) Alanine Aminotransferase (ALT/SGPT) 13 U/L (14-59) Alkaline Phosphatase 73 U/L (46-116) Total Protein 7.6 g/dL (6.4-8.2) Albumin 3.1 g/dL (3.4-5.0) Albumin/Globulin Ratio 0.7 (1.0-1.7) Triglycerides Level 125 mg/dL (0-150) Cholesterol Level 183 mg/dL (0-200) LDL Cholesterol, Calculated 96 mg/dL (0-100) VLDL Cholesterol, Calculated 25 mg/dL (0-40) Non-HDL Cholesterol Calculated 121 mg/dL (0-129) HDL Cholesterol 62 mg/dL (40-60) Cholesterol/HDL Ratio 3.0 Glucose (Fingerstick) 140 mg/dL (70-99) 114 mg/dL (70-99) Microbiology Micro Microbiology 06/04/18 Blood Culture - Preliminary, Resulted NO GROWTH AFTER 1 DAY Physical Exam HEENT: Neck Supple W Full Motion Chest: Symmetric LUNGS: Clear to Auscultation Heart: S1S2, RRR (A paced) Abdomen: Soft N/T Extremities: No Calf Tenderness Neurology: alert, oriented, follow commands Assessment Assessment 1. Acute respiratory failure with AECOPD/moderate pulmonary HTN and possible PNA. SOA better. 2. Chronic diastolic CHF; compensated 3. Atypical Chest pain, EF and WM nml. Likely pleuritic 3. SSS s/p PPM ([facility] [facility]) A paced, stable 4. Accelerated HTN: controlled 5. Hyperlipidemia; not on statin 6. Diabetes, II; as per PCP 7. Chronic opioid use with fentanyl and lortab Recommendations 1. Consider outpt MPI. CT chest pending 2. No further aggressive diuresis warranted, may transfer to 6S 3. Continue secondayr prevention measures. 4. Follow up in 4 weeks. EMANUEL KELLEY [employer] Jun 05, 2018 16:52
[2018-06-05] MEDS: ENOXAPARIN 40 MG/0.4 ML SYRINGE. SQ SCH (18:01)
[2018-06-05] MEDS: LACTOBACILLUS RHAMNOSUS GG 1 CAPSULE. PO SCH (20:35)
[2018-06-06] MEDS: PIPERACILLIN/TAZOBACTAM 3.375 GM in IV NORMAL SALINE 50ML 50 ML IV SCH ×4 (01:00→17:27)
[2018-06-06] MEDS: HYDROcodone/APAP 5/325MG 1 TAB TABLET PO PRN (02:55)
[2018-06-06 03:00] VITALS: BP 151/63
[2018-06-06 07:00] VITALS: BP 160/80
[2018-06-06] MEDS: IPRATRPIUM/ALBUTEROL 0.5/2.5MG 3 ML NEBU. NEB SCH ×6 (07:02→20:43)
[2018-06-06] MEDS: ALPRAZolam 0.5 MG TABLET PO SCH ×2 (08:35→21:08)
[2018-06-06] MEDS: CARVEDILOL 12.5 MG TABLET. PO SCH ×2 (08:36→17:00)
[2018-06-06] MEDS: methylPREDNISolone SOD SUCC PF 125 MG/2 ML VIAL. IV SCH (08:37)
[2018-06-06] MEDS: LACTOBACILLUS RHAMNOSUS GG 1 CAPSULE. PO SCH ×2 (08:38→21:08)
[2018-06-06] MEDS: PREGABALIN 75 MG CAPSULE PO SCH ×2 (08:38→21:08)
[2018-06-06] MEDS: SERTRALINE 50 MG TABLET. PO SCH (08:38)
[2018-06-06] MEDS: ASPIRIN ENTERIC COATED 81 MG TABLET.DR. PO SCH (08:38)
[2018-06-06] MEDS: DOCUSATE SODIUM 100 MG CAPSULE. PO SCH ×2 (08:39→21:08)
[2018-06-06] MEDS: DOXYCYCLINE HYCLATE 100 MG in IV DEXTROSE 5% 100ML 100 ML IV SCH (08:39)
[2018-06-06] MEDS: PANTOPRAZOLE 40 MG TABLET.DR. PO SCH (08:39)
[2018-06-06] MEDS: amLODIPine BESYLATE 5 MG TABLET PO SCH (08:47)
[2018-06-06 11:00] VITALS: BP 111/66
--- NOTE | 2018-06-06 13:21 | PDOC ---
PULMONARY PROGRESS NOTES Subjective PT NOT MORE SOA Vitals Vital Signs Date Time Temp Pulse Resp B/P (MAP) Pulse Ox O2 Delivery O2 Flow Rate FiO2 06/06/18 11:00 97.9 62 18 111/66 (81) 93 Nasal Cannula 2.0 97.9 ROS: No Nausea, No Chest Pain, No Abdominal Pain, No Increase Cough General: Alert Lungs: Crackles Cardiovascular: S1, S2 Abdomen: Soft, Non-tender Neuro Exam: Alert Extremities: No Edema Skin: Warm Labs Laboratory Tests Test 06/04/18 16:35 06/04/18 18:00 06/05/18 04:30 06/05/18 08:23 Troponin I Quantitative < 0.017 ng/mL (0.000-0.055) Nasal Screen MRSA (PCR) Negative (Negative) White Blood Count 5.1 x10^3/uL (4.0-11.0) Red Blood Count 4.10 x10^6/uL (3.50-5.40) Hemoglobin 11.5 g/dL (12.0-15.5) Hematocrit 35.7 % (36.0-47.0) Mean Corpuscular Volume 87 fL (79-100) Mean Corpuscular Hemoglobin 28 pg (25-35) Mean Corpuscular Hemoglobin Concent 32 g/dL (31-37) Red Cell Distribution Width 15.0 % (11.5-14.5) Platelet Count 193 x10^3/uL (140-400) Neutrophils (%) (Auto) 87 % (31-73) Lymphocytes (%) (Auto) 11 % (24-48) Monocytes (%) (Auto) 2 % (0-9) Eosinophils (%) (Auto) 0 % (0-3) Basophils (%) (Auto) 0 % (0-3) Neutrophils # (Auto) 4.5 x10^3uL (1.8-7.7) Lymphocytes # (Auto) 0.6 x10^3/uL (1.0-4.8) Monocytes # (Auto) 0.1 x10^3/uL (0.0-1.1) Eosinophils # (Auto) 0.0 x10^3/uL (0.0-0.7) Basophils # (Auto) 0.0 x10^3/uL (0.0-0.2) Segmented Neutrophils % 93 % (35-66) Lymphocytes % 5 % (24-48) Monocytes % 2 % (0-10) Platelet Estimate Adequate (ADEQUATE) Large Platelets Occ Giant Platelets Anisocytosis Slight Sodium Level 135 mmol/L (136-145) Potassium Level 3.9 mmol/L (3.5-5.1) Chloride Level 94 mmol/L (98-107) Carbon Dioxide Level 37 mmol/L (21-32) Anion Gap 4 (6-14) Blood Urea Nitrogen 14 mg/dL (7-20) Creatinine 0.9 mg/dL (0.6-1.0) Estimated GFR (Cockcroft-Gault) 59.4 BUN/Creatinine Ratio 16 (6-20) Glucose Level 155 mg/dL (70-99) Calcium Level 9.1 mg/dL (8.5-10.1) Total Bilirubin 0.7 mg/dL (0.2-1.0) Aspartate Amino Transf (AST/SGOT) 17 U/L (15-37) Alanine Aminotransferase (ALT/SGPT) 13 U/L (14-59) Alkaline Phosphatase 73 U/L (46-116) Total Protein 7.6 g/dL (6.4-8.2) Albumin 3.1 g/dL (3.4-5.0) Albumin/Globulin Ratio 0.7 (1.0-1.7) Triglycerides Level 125 mg/dL (0-150) Cholesterol Level 183 mg/dL (0-200) LDL Cholesterol, Calculated 96 mg/dL (0-100) VLDL Cholesterol, Calculated 25 mg/dL (0-40) Non-HDL Cholesterol Calculated 121 mg/dL (0-129) HDL Cholesterol 62 mg/dL (40-60) Cholesterol/HDL Ratio 3.0 Glucose (Fingerstick) 140 mg/dL (70-99) Test 06/05/18 11:30 06/05/18 16:44 06/05/18 21:12 06/06/18 07:26 Glucose (Fingerstick) 114 mg/dL (70-99) 115 mg/dL (70-99) 112 mg/dL (70-99) 129 mg/dL (70-99) Test 06/06/18 12:02 Glucose (Fingerstick) 136 mg/dL (70-99) Laboratory Tests Test 06/05/18 16:44 06/05/18 21:12 06/06/18 07:26 06/06/18 12:02 Glucose (Fingerstick) 115 mg/dL (70-99) 112 mg/dL (70-99) 129 mg/dL (70-99) 136 mg/dL (70-99) Medications Active Scripts Medications Dose Route/Sig Max Daily Dose Days Date Category Lyrica (Pregabalin) 50 Mg Capsule 50 Mg PO BID 03/14/18 Rx Duoneb 0.5-3(2.5) Mg/3 Ml (Albuterol/Ipratropium) 3 Ml Ampul.neb 3 Ml NEB PRN Q4HRS PRN 03/13/18 Reported Tylenol (Acetaminophen) 325 Mg Tablet 1 Tab PO PRN Q4HRS 03/13/18 Reported Ambien (Zolpidem Tartrate) 5 Mg Tablet 5 Mg PO PRN QHS PRN 03/13/18 Reported Hydrocodone-Apap 5-325 (Hydrocodone Bit/Acetaminophen) 1 Tab Tablet 1 Tab PO PRN Q8HRS PRN 03/13/18 Reported Alprazolam 0.25 Mg Tablet 1 Tab PO DAILY17 03/13/18 Reported Melatonin 3 Mg Tablet 10 Mg PO DAILY 03/13/18 Reported Carvedilol 25 Mg Tablet 12.5 Mg PO BIDWMEALS 03/13/18 Reported Zoloft (Sertraline Hcl) 50 Mg Tablet 1 Tab PO DAILY 03/13/18 Reported Omeprazole 20 Mg Capsule. 1 Cap PO DAILY 03/13/18 Reported Vitamin D (Cholecalciferol (Vitamin D3)) 1,000 Unit Capsule 1 Cap PO DAILY 06/24/17 Reported Advair 250-50 Diskus (Fluticasone/Salmeterol) 1 Each Disk.w.dev 1 Puff IH BID 06/24/17 Reported Multi-Day Vitamins (Multivitamin) 1 Each Tablet 1 Tab PO DAILY 01/18/16 Reported Colace (Docusate Sodium) 100 Mg Capsule 100 Mg PO BID 04/11/13 Reported Impression . IMPRESSION: 1. Bzaas-ke-osmwjdt hypercapnic hypoxemic respiratory failure. 2. Acute exacerbation of chronic obstructive pulmonary disease. 3. 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 4. Rheumatoid arthritis. 5. Other comorbidities including obstructive sleep apnea, noncompliant with CPAP, depression, type 2 diabetes, fibromyalgia, and hypertension. CT CHEST IMPRESSION: 1. Patchy airspace opacities identified in the bilateral upper lobes and bibasilar lungs likely atelectasis or infiltrates. Small bilateral pleural effusions. . Coronary artery calcifications. Plan . FOLLOW UIP IN MY OFFICE ONCE D/C SPOKE WITH HER HEALTH CARE PROVIDER CT BETTER NO NEED TO TREAT MAC FROM ONE YEAR AGO ORAL ANTIBX AND PRED 02 MEDINA COSTA MD June 06, 2018 13:21
[2018-06-06] MEDS: ENOXAPARIN 40 MG/0.4 ML SYRINGE. SQ SCH (14:22)
[2018-06-06 15:00] VITALS: BP 155/69
--- NOTE | 2018-06-06 15:40 | NUR ---
SW consulted for 24 hour care at home. Chart reviewed and MOON RN. PT/OT recommends home with assistance and pt has private home care 29/08 at home. No other needs noted at this time.
--- NOTE | 2018-06-06 16:09 | PDOC ---
PROGRESS NOTES Subjective Subjective hurts all over,. seen earlier today. blood sugars are okay. not short of breath. Objective Objective Vital Signs Date Time Temp Pulse Resp B/P (MAP) Pulse Ox O2 Delivery O2 Flow Rate FiO2 06/06/18 15:08 Nasal Cannula 2.0 06/06/18 15:00 97.9 78 18 155/69 (97) 95 97.9 Intake and Output 06/06/18 06:59 Intake Total 350 ml Output Total 450 ml Balance -100 ml Intake Oral 350 ml Output Urine Total 450 ml # Bowel Movements 1 Physical Exam Abdomen: Soft Heart: Regular rate, Normal S1, Normal S2 Extremities: No edema General: Alert HEENT: Atraumatic Lungs: Other (decreased breath sounds) Neuro: Normal speech Psych/Mental Status: Mental status NL Skin: No rashes Assessment Assessment Problems. Acute on chronic hypoxic and hypercapnic respiratory failure. 2. Acute exacerbation of chronic obstructive pulmonary disease. 3. lung infiltrates vs atelactasis on ct chest 4. Chronic diastolic congestive heart failure. 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 6. Hypertension. 7. Chronic pain, narcotic dependent. Medical Problems: Medical Problems: (1) Acute on chronic respiratory failure Status: Acute (2) COPD (chronic obstructive pulmonary disease) Status: Acute Plan Plan of Care continue iv solumedrol continue doxycycline but switch to po and iv zosyn continue fentanyl patch and prn norco continue bid xanax Comment Review of Relevant I have reviewed the following items lizbeth (where applicable) has been applied. Labs Laboratory Tests Test 06/04/18 16:35 06/04/18 18:00 06/05/18 04:30 06/05/18 08:23 Troponin I Quantitative < 0.017 ng/mL (0.000-0.055) Nasal Screen MRSA (PCR) Negative (Negative) White Blood Count 5.1 x10^3/uL (4.0-11.0) Red Blood Count 4.10 x10^6/uL (3.50-5.40) Hemoglobin 11.5 g/dL (12.0-15.5) Hematocrit 35.7 % (36.0-47.0) Mean Corpuscular Volume 87 fL (79-100) Mean Corpuscular Hemoglobin 28 pg (25-35) Mean Corpuscular Hemoglobin Concent 32 g/dL (31-37) Red Cell Distribution Width 15.0 % (11.5-14.5) Platelet Count 193 x10^3/uL (140-400) Neutrophils (%) (Auto) 87 % (31-73) Lymphocytes (%) (Auto) 11 % (24-48) Monocytes (%) (Auto) 2 % (0-9) Eosinophils (%) (Auto) 0 % (0-3) Basophils (%) (Auto) 0 % (0-3) Neutrophils # (Auto) 4.5 x10^3uL (1.8-7.7) Lymphocytes # (Auto) 0.6 x10^3/uL (1.0-4.8) Monocytes # (Auto) 0.1 x10^3/uL (0.0-1.1) Eosinophils # (Auto) 0.0 x10^3/uL (0.0-0.7) Basophils # (Auto) 0.0 x10^3/uL (0.0-0.2) Segmented Neutrophils % 93 % (35-66) Lymphocytes % 5 % (24-48) Monocytes % 2 % (0-10) Platelet Estimate Adequate (ADEQUATE) Large Platelets Occ Giant Platelets Anisocytosis Slight Sodium Level 135 mmol/L (136-145) Potassium Level 3.9 mmol/L (3.5-5.1) Chloride Level 94 mmol/L (98-107) Carbon Dioxide Level 37 mmol/L (21-32) Anion Gap 4 (6-14) Blood Urea Nitrogen 14 mg/dL (7-20) Creatinine 0.9 mg/dL (0.6-1.0) Estimated GFR (Cockcroft-Gault) 59.4 BUN/Creatinine Ratio 16 (6-20) Glucose Level 155 mg/dL (70-99) Calcium Level 9.1 mg/dL (8.5-10.1) Total Bilirubin 0.7 mg/dL (0.2-1.0) Aspartate Amino Transf (AST/SGOT) 17 U/L (15-37) Alanine Aminotransferase (ALT/SGPT) 13 U/L (14-59) Alkaline Phosphatase 73 U/L (46-116) Total Protein 7.6 g/dL (6.4-8.2) Albumin 3.1 g/dL (3.4-5.0) Albumin/Globulin Ratio 0.7 (1.0-1.7) Triglycerides Level 125 mg/dL (0-150) Cholesterol Level 183 mg/dL (0-200) LDL Cholesterol, Calculated 96 mg/dL (0-100) VLDL Cholesterol, Calculated 25 mg/dL (0-40) Non-HDL Cholesterol Calculated 121 mg/dL (0-129) HDL Cholesterol 62 mg/dL (40-60) Cholesterol/HDL Ratio 3.0 Glucose (Fingerstick) 140 mg/dL (70-99) Test 06/05/18 11:30 06/05/18 16:44 06/05/18 21:12 06/06/18 07:26 Glucose (Fingerstick) 114 mg/dL (70-99) 115 mg/dL (70-99) 112 mg/dL (70-99) 129 mg/dL (70-99) Test 06/06/18 12:02 Glucose (Fingerstick) 136 mg/dL (70-99) Laboratory Tests Test 06/05/18 16:44 06/05/18 21:12 06/06/18 07:26 06/06/18 12:02 Glucose (Fingerstick) 115 mg/dL (70-99) 112 mg/dL (70-99) 129 mg/dL (70-99) 136 mg/dL (70-99) Microbiology 06/04/18 Blood Culture - Preliminary, Resulted NO GROWTH AFTER 2 DAYS Medications Current Medications Albuterol/ Ipratropium (Duoneb) 3 ml 1X ONCE NEB Last administered on 06/04/18at 10:20; Start 06/04/18 at 10:15; Stop 06/04/18 at 10:18; Status DC Methylprednisolone Sodium Succinate (SOLU-Medrol 125MG VIAL) 125 mg 1X ONCE IV Last administered on 06/04/18at 10:31; Start 06/04/18 at 10:15; Stop 06/04/18 at 10:18; Status DC Albuterol/ Ipratropium (Duoneb) 3 ml STK-MED ONCE .ROUTE ; Start 06/04/18 at 10:18; Stop 06/04/18 at 10:19; Status DC Piperacillin Sod/ Tazobactam Sod (Zosyn Per Pharmacy) 1 each PRN DAILY PRN MC SEE COMMENTS; Start 06/04/18 at 11:00 Piperacillin Sod/ Tazobactam Sod 3.375 gm/Sodium Chloride 50 ml @ 100 mls/hr Q6HRS IV Last administered on 06/06/18 12:54; Start 06/04/18 at 12:00 Furosemide (Lasix) 20 mg 1X ONCE IVP Last administered on 06/04/18at 11:30; Start 06/04/18 at 11:30; Stop 06/04/18 at 11:31; Status DC Albuterol/ Ipratropium (Duoneb) 3 ml RTQID NEB Last administered on 06/06/18at 07:02; Start 06/04/18 at 12:00; Stop 06/05/18 at 11:59; Status DC Lorazepam (Ativan) 0.5 mg 1X ONCE IV Last administered on 06/04/18at 12:27; Start 06/04/18 at 12:30; Stop 06/04/18 at 12:31; Status DC Doxycycline Hyclate 100 mg/ Dextrose 100 ml @ 50 mls/hr Q12HR IV Last administered on 06/06/18at 08:39; Start 06/04/18 at 14:00 Albuterol Sulfate (Ventolin Neb Soln) 2.5 mg PRN Q2HR PRN NEB DYSPNEA; Start 06/04/18 at 13:45 Albuterol/ Ipratropium (Duoneb) 3 ml RTQID NEB Last administered on 06/06/18at 15:05; Start 06/04/18 at 13:00 Methylprednisolone Sodium Succinate (SOLU-Medrol 125MG VIAL) 80 mg Q12HR IV Last administered on 06/04/18at 15:48; Start 06/04/18 at 14:00; Stop 06/04/18 at 16:14; Status DC Enoxaparin Sodium (Lovenox 40mg Syringe) 40 mg Q24H SQ Last administered on 06/06/18 14:22; Start 06/04/18 at 14:00 Methylprednisolone Sodium Succinate (SOLU-Medrol 125MG VIAL) 40 mg Q12HR IV Last administered on 06/06/18at 08:37; Start 06/04/18 at 21:00 Enoxaparin Sodium (Lovenox 30mg Syringe) 30 mg Q24H SQ ; Start 06/04/18 at 16:15; Status UNV Docusate Sodium (Colace) 100 mg BID PO Last administered on 06/05/18 20:35; Start 06/04/18 at 21:00 Pregabalin (Lyrica) 75 mg BID PO Last administered on 06/06/18 08:38; Start 06/04/18 at 21:00 Carvedilol (Coreg) 25 mg BIDWMEALS PO Last administered on 06/06/18 08:36; Sta rt 06/04/18 at 17:00 Sertraline HCl (Zoloft) 100 mg DAILY PO Last administered on 06/06/18 08:38; Start 06/05/18 at 09:00 Acetaminophen (Tylenol) 650 mg PRN Q6HRS PRN PO MILD PAIN / TEMP; Start 06/04/18 at 16:15 Pantoprazole Sodium (Protonix) 40 mg DAILYAC PO Last administered on 06/06/18 08:39; Start 06/05/18 at 07:30 Amlodipine Besylate (Norvasc) 5 mg DAILY PO Last administered on 06/06/18 08:47; Start 06/05/18 at 09:00 Non-Formulary Medication (Carvedilol (Coreg)) 25 mg BID PO ; Start 06/04/18 at 21:00; Status UNV Alprazolam (Xanax) 0.5 mg BID PO Last administered on 06/06/18 08:35; Start 06/05/18 at 09:00 Fentanyl (Duragesic 12mcg/ Hr Patch) 1 patch Q72H TD Last administered on 06/05/18 00:43; Start 06/05/18 at 01:00 Acetaminophen/ Hydrocodone Bitart (Lortab 5/325) 1 tab PRN Q8HRS PRN PO SEVERE PAIN Last administered on 06/06/18 02:55; Start 06/05/18 at 00:15 Alprazolam (Xanax) 0.5 mg 1X ONCE PO Last administered on 06/05/18 00:26; Start 06/05/18 at 00:30; Stop 06/05/18 at 00:31; Status DC Multi-Ingredient Ointment (Analgesic [place]) 1 shady PRN QID PRN TP MUSCLE PAIN; Start 06/05/18 at 14:30 Lactobacillus Rhamnosus (Culturelle) 1 cap BID PO Last administered on 06/06/18at 08:38; Start 06/05/18 at 21:00 Aspirin (Ecotrin) 81 mg DAILYWBKFT PO Last administered on 06/06/18at 08:38; Start 06/06/18 at 08:00 Active Scripts Active Reported Senna (Sennosides) 8.6 Mg Tablet 8.6 Mg PO BID Zoloft (Sertraline Hcl) 100 Mg Tablet 100 Mg PO DAILY Amlodipine Besylate 5 Mg Tablet 5 Mg PO DAILY Coreg (Carvedilol) 25 Mg Tablet 25 Mg PO BID Lidocaine 1 Each Adh..patch 1 Each TP DAILY FENTANYL 12mcg/hr (Fentanyl) 1 Each Patch.td72 1 Patch TD Q72H Xanax (Alprazolam) 0.5 Mg Tablet 1 Tab PO BID Lyrica (Pregabalin) 75 Mg Capsule 75 Mg PO BID Omeprazole 20 Mg Capsule.dr 20 Mg PO BID Duoneb 0.5-3(2.5) Mg/3 Ml (Albuterol/Ipratropium) 3 Ml Ampul.neb 3 Ml NEB PRN Q4HRS PRN Ambien (Zolpidem Tartrate) 5 Mg Tablet 5 Mg PO PRN QHS PRN Hydrocodone-Apap 5-325 (Hydrocodone Bit/Acetaminophen) 1 Tab Tablet 1 Tab PO PRN Q8HRS PRN Melatonin 3 Mg Tablet 10 Mg PO DAILY Vitamin D (Cholecalciferol (Vitamin D3)) 1,000 Unit Capsule 1 Cap PO DAILY Advair 250-50 Diskus (Fluticasone/Salmeterol) 1 Each Disk.w.dev 1 Puff IH BID Multi-Day Vitamins (Multivitamin) 1 Each Tablet 1 Tab PO DAILY Colace (Docusate Sodium) 100 Mg Capsule 100 Mg PO BID Vitals/I & O Vital Sign - Last 24 Hours 06/05/18 06/05/18 06/05/18 06/05/18 18:01 19:00 20:00 21:07 Temp 97.9 97.9 Pulse 63 60 Resp 18 B/P (MAP) 142/49 116/39 (64) Pulse Ox 97 97 O2 Delivery Nasal Cannula Nasal Cannula Nasal Cannula O2 Flow Rate 3.0 4.0 3.0 06/05/18 06/06/18 06/06/18 06/06/18 22:41 02:55 03:00 03:55 Temp 98.4 98.8 98.4 98.8 Pulse 61 74 Resp 18 17 B/P (MAP) 147/57 (87) 151/63 (92) Pulse Ox 98 94 O2 Delivery Nasal Cannula Nasal Cannula Nasal Cannula Nasal Cannula O2 Flow Rate 3.0 3.0 3.0 3.0 06/06/18 06/06/18 06/06/18 06/06/18 07:00 07:04 08:00 08:36 Temp 97.8 97.8 Pulse 84 84 Resp 18 B/P (MAP) 160/80 (106) 160/80 Pulse Ox 94 97 O2 Delivery Nasal Cannula Nasal Cannula Nasal Cannula O2 Flow Rate 3.0 3.0 3.0 06/06/18 06/06/18 06/06/18 06/06/18 08:47 10:58 11:00 15:00 Temp 97.9 97.9 97.9 97.9 Pulse 84 62 78 Resp 18 18 B/P (MAP) 160/80 111/66 (81) 155/69 (97) Pulse Ox 93 95 O2 Delivery Nasal Cannula Nasal Cannula Nasal Cannula O2 Flow Rate 2.0 2.0 2.0 06/06/18 15:08 O2 Delivery Nasal Cannula O2 Flow Rate 2.0 Intake and Output 06/05/18 06/05/18 06/06/18 14:59 22:59 06:59 Intake Total 250 ml 100 ml Output Total 300 ml 150 ml Balance -50 ml -50 ml KARAN KIMBLE MD June 06, 2018 16:09
[2018-06-06 19:00] VITALS: BP 125/48
[2018-06-06] MEDS: AMOXICILLIN/K CLAV 875/125MG TABLET. PO SCH (21:08)
[2018-06-06] MEDS: DOXYCYCLINE HYCLATE 100 MG TABLET PO SCH (21:08)
[2018-06-06 23:00] VITALS: BP 134/66
[2018-06-07 03:00] VITALS: BP 171/67
[2018-06-07] MEDS: HYDROcodone/APAP 5/325MG 1 TAB TABLET PO PRN (03:58)
[2018-06-07 07:00] VITALS: BP 182/78
[2018-06-07] MEDS: IPRATRPIUM/ALBUTEROL 0.5/2.5MG 3 ML NEBU. NEB SCH ×2 (07:47→11:37)
[2018-06-07] MEDS: PANTOPRAZOLE 40 MG TABLET.DR. PO SCH (08:00)
[2018-06-07] MEDS ORDERED: predniSONE 20 MG TABLET PO SCH (09:00)
[2018-06-07] MEDS: SERTRALINE 50 MG TABLET. PO SCH (09:25)
[2018-06-07] MEDS: AMOXICILLIN/K CLAV 875/125MG TABLET. PO SCH (09:25)
[2018-06-07] MEDS: LACTOBACILLUS RHAMNOSUS GG 1 CAPSULE. PO SCH (09:25)
[2018-06-07] MEDS: ASPIRIN ENTERIC COATED 81 MG TABLET.DR. PO SCH (09:26)
[2018-06-07] MEDS: amLODIPine BESYLATE 5 MG TABLET PO SCH (09:26)
[2018-06-07] MEDS: DOCUSATE SODIUM 100 MG CAPSULE. PO SCH (09:26)
[2018-06-07] MEDS: PREGABALIN 75 MG CAPSULE PO SCH (09:27)
[2018-06-07] MEDS: DOXYCYCLINE HYCLATE 100 MG TABLET PO SCH (09:28)
[2018-06-07] MEDS: ALPRAZolam 0.5 MG TABLET PO SCH (09:28)
[2018-06-07] MEDS: CARVEDILOL 12.5 MG TABLET. PO SCH (09:28)
[2018-06-07 11:00] VITALS: BP 100/45
--- NOTE | 2018-06-07 12:13 | PDOC ---
PULMONARY PROGRESS NOTES Subjective PT NOT MORE SOA Vitals Vital Signs Date Time Temp Pulse Resp B/P (MAP) Pulse Ox O2 Delivery O2 Flow Rate FiO2 06/07/18 11:38 Nasal Cannula 2.0 06/07/18 11:00 97.8 60 16 100/45 (63) 94 97.8 ROS: No Nausea, No Chest Pain, No Abdominal Pain, No Increase Cough General: Alert Lungs: Clear Cardiovascular: S1, S2 Abdomen: Soft, Non-tender Neuro Exam: Alert Extremities: No Edema Skin: Warm Labs Laboratory Tests Test 06/05/18 16:44 06/05/18 21:12 06/06/18 07:26 06/06/18 12:02 Glucose (Fingerstick) 115 mg/dL (70-99) 112 mg/dL (70-99) 129 mg/dL (70-99) 136 mg/dL (70-99) Test 06/06/18 17:22 06/06/18 21:03 06/07/18 07:50 06/07/18 11:02 Glucose (Fingerstick) 183 mg/dL (70-99) 114 mg/dL (70-99) 86 mg/dL (70-99) 120 mg/dL (70-99) Laboratory Tests Test 06/06/18 17:22 06/06/18 21:03 06/07/18 07:50 06/07/18 11:02 Glucose (Fingerstick) 183 mg/dL (70-99) 114 mg/dL (70-99) 86 mg/dL (70-99) 120 mg/dL (70-99) Medications Active Scripts Medications Dose Route/Sig Max Daily Dose Days Date Category Lyrica (Pregabalin) 50 Mg Capsule 50 Mg PO BID 03/14/18 Rx Duoneb 0.5-3(2.5) Mg/3 Ml (Albuterol/Ipratropium) 3 Ml Ampul.neb 3 Ml NEB PRN Q4HRS PRN 03/13/18 Reported Tylenol (Acetaminophen) 325 Mg Tablet 1 Tab PO PRN Q4HRS 03/13/18 Reported Ambien (Zolpidem Tartrate) 5 Mg Tablet 5 Mg PO PRN QHS PRN 03/13/18 Reported Hydrocodone-Apap 5-325 (Hydrocodone Bit/Acetaminophen) 1 Tab Tablet 1 Tab PO PRN Q8HRS PRN 03/13/18 Reported Alprazolam 0.25 Mg Tablet 1 Tab PO DAILY17 03/13/18 Reported Melatonin 3 Mg Tablet 10 Mg PO DAILY 03/13/18 Reported Carvedilol 25 Mg Tablet 12.5 Mg PO BIDWMEALS 03/13/18 Reported Zoloft (Sertraline Hcl) 50 Mg Tablet 1 Tab PO DAILY 03/13/18 Reported Omeprazole 20 Mg Capsule.dr 1 Cap PO DAILY 03/13/18 Reported Vitamin D (Cholecalciferol (Vitamin D3)) 1,000 Unit Capsule 1 Cap PO DAILY 06/24/17 Reported Advair 250-50 Diskus (Fluticasone/Salmeterol) 1 Each Disk.w.dev 1 Puff IH BID 06/24/17 Reported Multi-Day Vitamins (Multivitamin) 1 Each Tablet 1 Tab PO DAILY 01/18/16 Reported Colace (Docusate Sodium) 100 Mg Capsule 100 Mg PO BID 04/11/13 Reported Impression . IMPRESSION: 1. [id number] hypercapnic hypoxemic respiratory failure. 2. Acute exacerbation of chronic obstructive pulmonary disease. 3. 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 4. Rheumatoid arthritis. 5. Other comorbidities including obstructive sleep apnea, noncompliant with CPAP, depression, type 2 diabetes, fibromyalgia, and hypertension. CT CHEST IMPRESSION: 1. Patchy airspace opacities identified in the bilateral upper lobes and bibasilar lungs likely atelectasis or infiltrates. Small bilateral pleural effusions. . Coronary artery calcifications. Plan . FOLLOW UIP WITH DR PAYNE IN OFFICE ONCE D/C . DR PAYNE SPOKE WITH HER HEALTH CARE PROVIDER CT BETTER. NO NEED TO TREAT MAC FROM ONE YEAR AGO ORAL ANTIBX AND PRED 02 YONI DUFFY MD June 07, 2018 12:13
--- NOTE | 2018-06-07 13:09 | PDOC ---
PROGRESS NOTES Subjective Subjective feels well. not short of breath . Objective Objective Vital Signs Date Time Temp Pulse Resp B/P (MAP) Pulse Ox O2 Delivery O2 Flow Rate FiO2 06/07/18 11:38 Nasal Cannula 2.0 06/07/18 11:00 97.8 60 16 100/45 (63) 94 97.8 Intake and Output 06/07/18 06:59 Intake Total 720 ml Balance 720 ml Intake Oral 720 ml # Voids 5 # Bowel Movements 2 Physical Exam Abdomen: Soft Heart: Regular rate, Normal S1, Normal S2 Extremities: No edema General: Alert HEENT: Atraumatic Lungs: Other (decreased breath sounds) Neuro: Normal speech Psych/Mental Status: Mental status NL Skin: No rashes Assessment Assessment Problems Acute on chronic hypoxic and hypercapnic respiratory failure. improved 2. Acute exacerbation of chronic obstructive pulmonary disease. better 3. lung infiltrates vs atelactasis on ct chest 4. Chronic diastolic congestive heart failure. 5. Diabetes mellitus type 2 with neuropathy 6. Hypertension. 7. Chronic pain, narcotic dependent. Medical Problems: (1) Acute on chronic respiratory failure Status: Acute (2) COPD (chronic obstructive pulmonary disease) Status: Acute Plan Plan of Care continue prednisone taper and oral antibiotics dismiss today Comment Review of Relevant I have reviewed the following items lizbeth (where applicable) has been applied. Labs Laboratory Tests Test 06/05/18 16:44 06/05/18 21:12 06/06/18 07:26 06/06/18 12:02 Glucose (Fingerstick) 115 mg/dL (70-99) 112 mg/dL (70-99) 129 mg/dL (70-99) 136 mg/dL (70-99) Test 06/06/18 17:22 06/06/18 21:03 06/07/18 07:50 06/07/18 11:02 Glucose (Fingerstick) 183 mg/dL (70-99) 114 mg/dL (70-99) 86 mg/dL (70-99) 120 mg/dL (70-99) Laboratory Tests Test 06/06/18 17:22 06/06/18 21:03 06/07/18 07:50 06/07/18 11:02 Glucose (Fingerstick) 183 mg/dL (70-99) 114 mg/dL (70-99) 86 mg/dL (70-99) 120 mg/dL (70-99) Microbiology 06/04/18 Blood Culture - Preliminary, Resulted NO GROWTH AFTER 2 DAYS Medications Current Medications Albuterol/ Ipratropium (Duoneb) 3 ml 1X ONCE NEB Last administered on 06/04/18at 10:20; Start 06/04/18 at 10:15; Stop 06/04/18 at 10:18; Status DC Methylprednisolone Sodium Succinate (SOLU-Medrol 125MG VIAL) 125 mg 1X ONCE IV Last administered on 06/04/18at 10:31; Start 06/04/18 at 10:15; Stop 06/04/18 at 10:18; Status DC Albuterol/ Ipratropium (Duoneb) 3 ml STK-MED ONCE .ROUTE ; Start 06/04/18 at 10:18; Stop 06/04/18 at 10:19; Status DC Piperacillin Sod/ Tazobactam Sod (Zosyn Per Pharmacy) 1 each PRN DAILY PRN [facility] SEE COMMENTS; Start 06/04/18 at 11:00 Piperacillin Sod/ Tazobactam Sod 3.375 gm/Sodium Chloride 50 ml @ 100 mls/hr Q6HRS IV Last administered on 06/06/18at 17:27; Start 06/04/18 at 12:00; Stop 06/06/18 at 17:52; Status DC Furosemide (Lasix) 20 mg 1X ONCE IVP Last administered on 06/04/18at 11:30; Start 06/04/18 at 11:30; Stop 06/04/18 at 11:31; Status DC Albuterol/ Ipratropium (Duoneb) 3 ml RTQID NEB Last administered on 06/06/18at 07:02; Start 06/04/18 at 12:00; Stop 06/05/18 at 11:59; Status DC Lorazepam (Ativan) 0.5 mg 1X ONCE IV Last administered on 06/04/18at 12:27; Start 06/04/18 at 12:30; Stop 06/04/18 at 12:31; Status DC Doxycycline Hyclate 100 mg/ Dextrose 100 ml @ 50 mls/hr Q12HR IV Last a dministered on 06/06/18at 08:39; Start 06/04/18 at 14:00; Stop 06/06/18 at 16:07; Status DC Albuterol Sulfate (Ventolin Neb Soln) 2.5 mg PRN Q2HR PRN NEB DYSPNEA; Start 06/04/18 at 13:45 Albuterol/ Ipratropium (Duoneb) 3 ml RTQID NEB Last administered on 06/07/18 11:37; Start 06/04/18 at 13:00 Methylprednisolone Sodium Succinate (SOLU-Medrol 125MG VIAL) 80 mg Q12HR IV Last administered on 06/04/18at 15:48; Start 06/04/18 at 14:00; Stop 06/04/18 at 16:14; Status DC Enoxaparin Sodium (Lovenox 40mg Syringe) 40 mg Q24H SQ Last administered on 06/06/18 14:22; Start 06/04/18 at 14:00 Methylprednisolone Sodium Succinate (SOLU-Medrol 125MG VIAL) 40 mg Q12HR IV Last administered on 06/06/18 08:37; Start 06/04/18 at 21:00; Stop 06/06/18 at 17:52; Status DC Enoxaparin Sodium (Lovenox 30mg Syringe) 30 mg Q24H SQ ; Start 06/04/18 at 16:15; Status UNV Docusate Sodium (Colace) 100 mg BID PO Last administered on 06/07/18 09:26; Start 06/04/18 at 21:00 Pregabalin (Lyrica) 75 mg BID PO Last administered on 06/07/18 09:27; Start 06/04/18 at 21:00 Carvedilol (Coreg) 25 mg BIDWMEALS PO Last administered on 06/07/18 09:28; Start 06/04/18 at 17:00 Sertraline HCl (Zoloft) 100 mg DAILY PO Last administered on 06/07/18 09:25; Start 06/05/18 at 09:00 Acetaminophen (Tylenol) 650 mg PRN Q6HRS PRN PO MILD PAIN / TEMP; Start 06/04/18 at 16:15 Pantoprazole Sodium (Protonix) 40 mg DAILYAC PO Last administered on 06/07/18 08:00; Start 06/05/18 at 07:30 Amlodipine Besylate (Norvasc) 5 mg DAILY PO Last administered on 06/07/18 09:26; Start 06/05/18 at 09:00 Non-Formulary Medication (Carvedilol (Coreg)) 25 mg BID PO ; Start 06/04/18 at 21:00; Status UNV Alprazolam (Xanax) 0.5 mg BID PO Last administered on 06/07/18 09:28; Start 06/05/18 at 09:00 Fentanyl (Duragesic 12mcg/ Hr Patch) 1 patch Q72H TD Last administered on 06/05/18 00:43; Start 06/05/18 at 01:00 Acetaminophen/ Hydrocodone Bitart (Lortab 5/325) 1 tab PRN Q8HRS PRN PO SEVERE PAIN Last administered on 06/07/18 03:58; Start 06/05/18 at 00:15 Alprazolam (Xanax) 0.5 mg 1X ONCE PO Last administered on 06/05/18 00:26; Start 06/05/18 at 00:30; Stop 06/05/18 at 00:31; Status DC Multi-Ingredient Ointment (Analgesic [place]) 1 shady PRN QID PRN TP MUSCLE PAIN; Start 06/05/18 at 14:30 Lactobacillus Rhamnosus (Culturelle) 1 cap BID PO Last administered on 06/07/18 09:25; Start 06/05/18 at 21:00 Aspirin (Ecotrin) 81 mg DAILYWBKFT PO Last administered on 06/07/18 09:26; Start 06/06/18 at 08:00 Doxycycline Hyclate (Vibra-Tab) 100 mg BID PO Last administered on 06/07/18 09:28; Start 06/06/18 at 21:00 Prednisone (Prednisone) 30 mg DAILY PO Last administered on 06/07/18 09:26; Start 06/07/18 at 09:00 Amoxicillin/ Clavulanate Potassium (Augmentin 875/ 125mg) 1 tab BID PO Last administered on 06/07/18 09:25; Start 06/06/18 at 21:00 Active Scripts Active Reported Senna (Sennosides) 8.6 Mg Tablet 8.6 Mg PO BID Zoloft (Sertraline Hcl) 100 Mg Tablet 100 Mg PO DAILY Amlodipine Besylate 5 Mg Tablet 5 Mg PO DAILY Coreg (Carvedilol) 25 Mg Tablet 25 Mg PO BID Lidocaine 1 Each Adh..patch 1 Each TP DAILY FENTANYL 12mcg/hr (Fentanyl) 1 Each Patch.td72 1 Patch TD Q72H Xanax (Alprazolam) 0.5 Mg Tablet 1 Tab PO BID Lyrica (Pregabalin) 75 Mg Capsule 75 Mg PO BID Omeprazole 20 Mg Capsule.dr 20 Mg PO BID Duoneb 0.5-3(2.5) Mg/3 Ml (Albuterol/Ipratropium) 3 Ml Ampul.neb 3 Ml NEB PRN Q4HRS PRN Ambien (Zolpidem Tartrate) 5 Mg Tablet 5 Mg PO PRN QHS PRN Hydrocodone-Apap 5-325 (Hydrocodone Bit/Acetaminophen) 1 Tab Tablet 1 Tab PO PRN Q8HRS PRN Melatonin 3 Mg Tablet 10 Mg PO DAILY Vitamin D (Cholecalciferol (Vitamin D3)) 1,000 Unit Capsule 1 Cap PO DAILY Advair 250-50 Diskus (Fluticasone/Salmeterol) 1 Each Disk.w.dev 1 Puff IH BID Multi-Day Vitamins (Multivitamin) 1 Each Tablet 1 Tab PO DAILY Colace (Docusate Sodium) 100 Mg Capsule 100 Mg PO BID Vitals/I & O Vital Sign - Last 24 Hours 06/06/18 06/06/18 06/06/18 06/06/18 15:00 15:08 17:00 19:00 Temp 97.9 98.6 97.9 98.6 Pulse 78 78 64 Resp 18 16 B/P (MAP) 155/69 (97) 155/69 125/48 (73) Pulse Ox 95 95 O2 Delivery Nasal Cannula Nasal Cannula Nasal Cannula O2 Flow Rate 2.0 2.0 1.0 06/06/18 06/06/18 06/06/18 06/07/18 20:00 20:44 23:00 03:00 Temp 98.0 98.1 98.0 98.1 Pulse 61 73 Resp 16 15 B/P (MAP) 134/66 (88) 171/67 (101) Pulse Ox 95 93 96 O2 Delivery Nasal Cannula Nasal Cannula Nasal Cannula Nasal Cannula O2 Flow Rate 1.0 1.0 1.0 06/07/18 06/07/18 06/07/18 06/07/18 03:58 04:58 07:00 07:49 Temp 97.8 97.8 Pulse 84 Resp 20 B/P (MAP) 182/78 (112) Pulse Ox 95 85 O2 Delivery Nasal Cannula Room Air Nasal Cannula Nasal Cannula O2 Flow Rate 1.0 1.0 06/07/18 06/07/18 06/07/18 06/07/18 08:00 09:26 09:28 11:00 Temp 97.8 97.8 Pulse 84 84 60 Resp 16 B/P (MAP) 182/78 182/78 100/45 (63) Pulse Ox 94 O2 Delivery Nasal Cannula Nasal Cannula O2 Flow Rate 1.0 2.0 06/07/18 11:38 O2 Delivery Nasal Cannula O2 Flow Rate 2.0 Intake and Output 06/06/18 06/06/18 06/07/18 14:59 22:59 06:59 Intake Total 480 ml 240 ml Balance 480 ml 240 ml KARAN KIMBLE MD June 07, 2018 13:09
[2018-06-07] MEDS ORDERED: PRED20TA PO (13:17)
[2018-06-07] MEDS ORDERED: AMOX1TAB11 PO (13:17)
[2018-06-07] MEDS ORDERED: ASPI-612 PO (13:17)
--- NOTE | 2018-06-07 13:17 | DISCH ---
DISCHARGE INSTRUCTIONS Condition on Discharge Condition on Discharge: Stable Activity After Discharge Activity Instructions for Disc: Activity as tolerated Driving Instructions after Dis: Do not drive Weight Bearing Status after Di: As tolerated Diet after Discharge Diet after Discharge: Diabetic No Calorie Level Diet Texture: Regular Liquid Texture: Thin Liquid Wound Incision Care Wound/Incision Care: Change dressing Wound Care Equipment: Dressings Checks after Discharge Checks after discharge: Weigh Yourself Daily Contacting the DR. after DC Call your doctor for: If your condition worsens Follow-Up Follow up with: dr. kimble next week Treatment/Equipment after DC Adaptive Equipment Issued: None, Wheelchair Discharge Respiratory Equipmen: Oxygen KARAN KIMBLE MD June 07, 2018 13:17
--- NOTE | 2018-06-07 13:24 | PDOC ---
Provider Note Provider Note discharge summary dictated # [id number] KARAN KIMBLE MD June 07, 2018 13:24
--- NOTE | 2018-06-07 14:00 | NUR ---
Discharged with daughter to home. Ambulated with her own wheelchair. Prescriptions of prednisone and amoxicillin to finalize the treatment of her respiratory issues. With follow up appointments with [facility] for the following week. Took IV out.
--- NOTE | 2018-06-07 19:24 | DS ---
DATE OF DISCHARGE: 06/07/2018 CONSULTANTS: Dr. Pizarro, Dr. Reed and Dr. Hernandez. FINAL DIAGNOSES: 1. Acute on chronic hypoxic and hypercapnic respiratory failure. 2. Acute exacerbation of chronic obstructive pulmonary disease. 3. Diabetes mellitus type 2. 4. Hypertension. 5. Chronic pain, narcotic dependent. 6. Chronic diastolic congestive heart failure. HOSPITAL COURSE: The patient is an 87-year-old white female with a history of COPD and chronic diastolic congestive heart failure, diabetes mellitus type 2 with peripheral neuropathy, hypertension, chronic pain, narcotic dependent, admitted to [facility] Emergency Room on 06/04/2018 with a two-day history of increasing shortness of breath despite using her nebulizer treatments. She denied any significant cough. She sought help at the [facility] Emergency Room. She had acute on chronic hypoxic and hypercapnic respiratory failure, treated with BiPAP and admitted to the Intensive Care Unit. She eventually was weaned off the BiPAP and switched to oxygen per nasal cannula, weaned down to 2 liters per nasal cannula, which she takes at home, seen by Dr. Pizarro and Dr. Reed for Pulmonary and Dr. Hernandez for Cardiology. An echocardiogram showed a preserved left ventricular ejection fraction. She was treated with IV doxycycline and Zosyn and switched to Augmentin. She did not have any significant cough. She had some lung infiltrates in her chest x-ray. 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 Dr. Pizarro felt that it did not need to be treated as it was not causing any symptoms. She had some patchy airspace opacities noted on her CAT scan of the chest, small bilateral pleural effusions with coronary artery calcifications. She continued to improve and she has a 24-hour attendant at home. DISCHARGE MEDICATIONS: She will be dismissed to home on Colace 100 mg b.i.d., vitamin D 1000 units every day, furosemide 20 mg every day p.r.n., melatonin 5 mg at bedtime, albuterol nebulizer treatments q.i.d., Plaquenil 200 mg every day, Advair 250/50 mcg 1 puff b.i.d., MiraLax 17 grams every day p.r.n., Lyrica 75 mg b.i.d., sertraline 100 mg every day, carvedilol 25 mg b.i.d., Ambien 5 mg at bedtime, amlodipine 5 mg every day, alprazolam 0.5 mg b.i.d., [place] 5/325 one tablet t.i.d. p.r.n. and fentanyl patch 12 mcg every 72 hours. DISCHARGE INSTRUCTIONS: She will make an appointment to see Dr. Castelan in the office in 1-2 weeks and follow up with Dr. Pizarro. She will follow up with Dr. Reed in the office in a couple of weeks. She will be dismissed on Augmentin 875 mg 1 b.i.d. for 3 days, prednisone 30 mg for 1 day, 20 mg daily for 2 days and then 10 mg every day for 2 days and then she will stop the prednisone. KARAN CASTELAN MD DR: KATHY/ben JOB#: [id number] / [id number]
== END 2018-06-07 14:00 | disposition home or self-care (01) | DRG 871 ==
LOC: ER 10:04 → 1 WEST ICU 11:50 → 6 SOUTH 06-05 14:11
PROVIDERS: ADMIT Internal Medicine; ATTEND Internal Medicine
PROC: 5A09357 Assistance with Respiratory Ventilation, Less than 24 Consecutive Hours, Continuous Positive Airway Pressure (ICD-10-PCS; principal; 2018-06-04)
DX: A41.9 Sepsis, unspecified organism (principal); J18.9 Pneumonia, unspecified organism; J96.22 Acute and chronic respiratory failure with hypercapnia; J96.21 Acute and chronic respiratory failure with hypoxia; J44.1 Chronic obstructive pulmonary disease with (acute) exacerbation; I50.32 Chronic diastolic (congestive) heart failure; E11.21 Type 2 diabetes mellitus with diabetic nephropathy; E11.42 Type 2 diabetes mellitus with diabetic polyneuropathy; E78.5 Hyperlipidemia, unspecified; F32.9 Major depressive disorder, single episode, unspecified; G47.33 Obstructive sleep apnea (adult) (pediatric); G89.29 Other chronic pain; I11.0 Hypertensive heart disease with heart failure; I25.10 Atherosclerotic heart disease of native coronary artery without angina pectoris; K21.9 Gastro-esophageal reflux disease without esophagitis; M06.9 Rheumatoid arthritis, unspecified; M15.9 Polyosteoarthritis, unspecified; M79.7 Fibromyalgia; Z79.891 Long term (current) use of opiate analgesic; E66.9 Obesity, unspecified; F41.9 Anxiety disorder, unspecified; M10.9 Gout, unspecified; Z80.3 Family history of malignant neoplasm of breast; Z96.641 Presence of right artificial hip joint; Z82.49 Family history of ischemic heart disease and other diseases of the circulatory system; Z87.01 Personal history of pneumonia (recurrent); Z86.010 Personal history of colon polyps; Z90.49 Acquired absence of other specified parts of digestive tract; Z90.710 Acquired absence of both cervix and uterus; Z91.19 Patient's noncompliance with other medical treatment and regimen; Z95.0 Presence of cardiac pacemaker; Z99.81 Dependence on supplemental oxygen; Z87.440 Personal history of urinary (tract) infections; Z68.31 Body mass index [BMI] 31.0-31.9, adult
CPT/HCPCS: 36415; 36600; 71045; 71250; 80053; 80061; 82805; 82962; 83605; 83880; 84484; 85007; 85025; 85610; 87040; 87641; 93005; 93306; 94640; 94660; 94760; 96374; 96375; 99291; J1650; J1940; J2060; J2543; J2930; J3490; J7512; J7620

== ENCOUNTER 2019-01-04 10:16 | Inpatient (IN) | payer MEDICARE ==
[~2019-01-04] VITALS: Ht 152.4 cm; Wt 74.8 kg
[~2019-01-04 10:16] MED LIST changes: +AMLO5TAB10 PO; +AMOX1TAB11 PO; +ASPI-612 PO; +CARV25TA PO; +LIDO700A21 TP; -LIDO700A39 TP; -MELA3TAB2 PO; +MELA3TAB56 PO; +OMEP-229 PO; -OMEP20CA10 PO; +SENN-80 PO; +SERT100T PO
--- NOTE | 2019-01-04 10:39 | PHYS DOC ---
Past Medical History Past Medical History: Arthritis, CAD, CHF, Constipation, COPD, Depression, Diabetes-Type II, Fibromyalgia, GERD, Hypertension, Pneumonia, UTI, Other Additional Past Medical Histor: NEUROPATHY Past Surgical History: Appendectomy, Cholecystectomy, Hysterectomy, Pacemaker, Other Additional Past Surgical Histo: NECK/BACK,HIP,EYE,CARPAL TUNNEL Alcohol Use: None Drug Use: None Adult General Chief Complaint Chief Complaint: SHORTNESS OF BREATH HPI HPI 88-year-old female presents to the emergency department with complaints of fever, vomiting, diarrhea, shortness of breath. Caregivers at bedside and states this morning oxygen saturations were low at 83%. She generally wears 2 L nasal cannula however states she turned up to 3-4 with improvement oxygen saturations. Patient has a history of congestive heart failure, hypertension, pneumonia, COPD. Nothing makes her symptoms worse, nothing makes her symptoms better. Review of Systems Review of Systems Constitutional: Fever Eyes: Denies change in visual acuity, redness, or eye pain [] HENT: Denies nasal congestion or sore throat [] Respiratory: Cough, shortness of breath Cardiovascular: No additional information not addressed in HPI [] GI: Vomiting, diarrhea : Denies dysuria or hematuria [] Musculoskeletal: Denies back pain or joint pain [] Integument: Denies rash or skin lesions [] Neurologic: Denies headache, focal weakness or sensory changes [] All other systems were reviewed and found to be within normal limits, except as documented in this note. Current Medications Current Medications Current Medications Medications (Trade) Dose Ordered Sig/Lindsey Start Time Stop Time Status Last Admin Dose Admin Acetaminophen (Tylenol) 650 mg PRN Q4HRS PRN 01/04/19 11:45 01/05/19 11:44 Albuterol/ Ipratropium (Duoneb) 3 ml RTQID 01/04/19 12:00 01/05/19 11:59 Furosemide (Lasix) 40 mg 1X ONCE 01/04/19 10:45 01/04/19 10:46 DC 01/04/19 11:07 40 MG Heparin Sodium (Porcine) (Heparin Sodium) 1,700 unit PRN Q6HRS PRN 01/04/19 11:45 Heparin Sodium/ Dextrose 500 ml @ 16.3 mls/hr CONT PRN 01/04/19 11:45 Nitroglycerin (Nitrostat) 0.4 mg PRN Q5MIN PRN 01/04/19 11:45 01/05/19 11:44 Ondansetron HCl (Zofran) 4 mg PRN Q8HRS PRN 01/04/19 11:45 01/05/19 11:44 Allergies Allergies Allergies Coded Allergies Type Severity Reaction Last Updated Verified Iodinated Contrast Media Allergy Intermediate Itching 07/31/17 Yes doxazosin Allergy Intermediate 03/14/18 Yes lisinopril Allergy Intermediate 03/14/18 Yes niacin Allergy Intermediate 03/14/18 Yes I S O L A T I O N *CONTACT* Allergy Unknown 07/31/17 Yes atorvastatin Adverse Reaction Intermediate 03/14/18 Yes clonidine Adverse Reaction Intermediate 03/14/18 Yes fluvastatin Adverse Reaction Intermediate 03/14/18 Yes lovastatin Adverse Reaction Intermediate 03/14/18 Yes nifedipine Adverse Reaction Intermediate 03/14/18 Yes rosuvastatin Adverse Reaction Intermediate 03/14/18 Yes Physical Exam Physical Exam Constitutional: Well developed, well nourished, no acute distress, non-toxic appearance. [] HENT: Normocephalic, atraumatic, bilateral external ears normal, oropharynx moist, no oral exudates, nose normal. [] Eyes: PERRLA, EOMI, conjunctiva normal, no discharge. [] Cardiovascular:Heart rate regular rhythm, no murmur [] Lungs & Thorax: Decreased breath sounds, crackles Abdomen: Bowel sounds normal, soft, no tenderness, no masses, no pulsatile masses. [] Skin: Warm, dry, no erythema, no rash. [] Back: No tenderness, no CVA tenderness. [] Extremities: No tenderness, no edema. [] Neurologic: Alert and oriented X 3, no focal deficits noted. [] Psychologic: Affect normal, judgement normal, mood normal. [] Current Patient Data Vital Signs Vital Signs Date Time Temp Pulse Resp B/P (MAP) Pulse Ox O2 Delivery O2 Flow Rate FiO2 01/04/19 10:53 98 Nasal Cannula 3.0 01/04/19 10:29 99.9 89 16 98/49 (65) 99.9 Lab Values Laboratory Tests Test 01/04/19 11:01 White Blood Count 8.4 x10^3/uL (4.0-11.0) Red Blood Count 4.01 x10^6/uL (3.50-5.40) Hemoglobin 9.7 g/dL (12.0-15.5) L Hematocrit 31.5 % (36.0-47.0) L Mean Corpuscular Volume 79 fL (79-100) Mean Corpuscular Hemoglobin 24 pg (25-35) L Mean Corpuscular Hemoglobin Concent 31 g/dL (31-37) Red Cell Distribution Width 17.5 % (11.5-14.5) H Platelet Count 117 x10^3/uL (140-400) L Neutrophils (%) (Auto) 86 % (31-73) H Lymphocytes (%) (Auto) 6 % (24-48) L Monocytes (%) (Auto) 8 % (0-9) Eosinophils (%) (Auto) 0 % (0-3) Basophils (%) (Auto) 0 % (0-3) Neutrophils # (Auto) 7.2 x10^3/uL (1.8-7.7) Lymphocytes # (Auto) 0.5 x10^3/uL (1.0-4.8) L Monocytes # (Auto) 0.7 x10^3/uL (0.0-1.1) Eosinophils # (Auto) 0.0 x10^3/uL (0.0-0.7) Basophils # (Auto) 0.0 x10^3/uL (0.0-0.2) Segmented Neutrophils % 85 % (35-66) H Band Neutrophils % 9 % (0-9) Lymphocytes % 4 % (24-48) L Monocytes % 2 % (0-10) Platelet Estimate Decreased (ADEQUATE) Basophilic Stippling Present Anisocytosis Slight Sodium Level 141 mmol/L (136-145) Potassium Level 4.3 mmol/L (3.5-5.1) Chloride Level 102 mmol/L (98-107) Carbon Dioxide Level 35 mmol/L (21-32) H Anion Gap 4 (6-14) L Blood Urea Nitrogen 25 mg/dL (7-20) H Creatinine 1.4 mg/dL (0.6-1.0) H Estimated GFR (Cockcroft-Gault) 35.6 BUN/Creatinine Ratio 18 (6-20) Glucose Level 126 mg/dL (70-99) H Lactic Acid Level 1.0 mmol/L (0.4-2.0) Calcium Level 7.9 mg/dL (8.5-10.1) L Total Bilirubin 0.4 mg/dL (0.2-1.0) Aspartate Amino Transferase (AST) 33 U/L (15-37) Alanine Aminotransferase (ALT) 13 U/L (14-59) L Alkaline Phosphatase 63 U/L (46-116) Troponin I Quantitative 2.224 ng/mL (0.000-0.055) QG-Qfe-O-Type Natriuretic Peptide 6335 pg/mL (0-449) H Total Protein 6.8 g/dL (6.4-8.2) Albumin 2.7 g/dL (3.4-5.0) L Albumin/Globulin Ratio 0.7 (1.0-1.7) L Laboratory Tests 01/04/19 11:01 Laboratory Tests 01/04/19 11:01 EKG EKG EKG reviewed, heart rate 88, left axis deviation no evidence of ST elevation VA appreciated, interpretation time 1254[] Radiology/Procedures Radiology/Procedures [facility] [address] [place] [address] IMAGING REPORT Signed PATIENT: SYBIL AUGUSTINE ACCOUNT: [id number] : 1930 LOCATION: ER AGE: 88 SEX: F EXAM STATUS: REG ER ORD. PHYSICIAN: FIDELIA SONG MD REASON: cough/fever SOB PROCEDURE: CHEST AP ONLY Single AP view of the chest. Comparison: 06/04/2018. Indication: Cough fever shortness of breath Findings: Left subclavian pacemaker stable. The heart is enlarged but stable. There is no pneumothorax or effusion. Persistent pulmonary vascular congestion. Impression: 1. Cardiomegaly and mild vascular congestion suggests CHF. Electronically signed by: Judd Hassan MD (01/04/2019 10:51 AM) [facility] DICTATED and SIGNED BY: JUDD HASSAN MD DATE: 01/04/19 1051 [] Course & Med Decision Making Course & Med Decision Making Pertinent Labs and Imaging studies reviewed. (See chart for details) []88-year-old female presents to the emergency department with complaints of fever, vomiting, diarrhea, shortness of breath. Caregivers at bedside and states this morning oxygen saturations were low at 83%. She generally wears 2 L nasal cannula however states she turned up to 3-4 with improvement oxygen saturations. Patient has a history of congestive heart failure, hypertension, pneumonia, COPD. Nothing makes her symptoms worse, nothing makes her symptoms better. Dragon Disclaimer Dragon Disclaimer This electronic medical record was generated, in whole or in part, using a voice recognition dictation system. Departure Departure Impression: Primary Impression: CHF exacerbation Additional Impressions: Acute and chronic respiratory failure Elevated troponin Disposition: ADMITTED INPATIENT Admitting Physician: Esau Castelan Condition: STABLE Referrals: ESAU CASTELAN MD (PCP) Critical Care Time Critical care time was 35 minutes exclusive of procedures. Problem Qualifiers Primary Impression: CHF exacerbation Heart failure type: unspecified Qualified Codes: I50.9 - Heart failure, unspecified FIDELIA SONG MD Jan 04, 2019 10:39
[2019-01-04] MEDS ORDERED: FUROSEMIDE 40 MG/4 ML VIAL. IVP ONE (10:45)
[2019-01-04] MEDS ORDERED: IPRATRPIUM/ALBUTEROL 0.5/2.5MG 3 ML NEBU. NEB ONE (10:45)
--- NOTE | 2019-01-04 10:54 | RAD ---
Single AP view of the chest. Comparison: 06/04/2018. Indication: Cough fever shortness of breath Findings: Left subclavian pacemaker stable. The heart is enlarged but stable. There is no pneumothorax or effusion. Persistent pulmonary vascular congestion. Impression: 1. Cardiomegaly and mild vascular congestion suggests CHF. Electronically signed by: Judd Hassan MD (01/04/2019 10:51 AM) [facility]
[2019-01-04 11:12] LABS: BASO % 0 % (0-3); EOS % 0 % (0-3); HEMATOCRIT 31.5 % (36.0-47.0); HEMOGLOBIN 9.7 g/dL (12.0-15.5); LYMPH # 0.5 x10^3/uL (1.0-4.8); LYMPH % 6 % (24-48); MEAN CORPUSCULAR HEMOGLOBIN 24 pg (25-35); MEAN CORPUSCULAR HGB CONC 31 g/dL (31-37); MEAN CORPUSCULAR VOLUME 79 fL (79-100); MONO # 0.7 x10^3/uL (0.0-1.1); MONO % 8 % (0-9); NEUT # 7.2 x10^3/uL (1.8-7.7); NEUT % 86 % (31-73); PLATELET COUNT 117 x10^3/uL (140-400); RED BLOOD COUNT 4.01 x10^6/uL (3.50-5.40); RED CELL DISTRIBUTION WIDTH 17.5 % (11.5-14.5); WHITE BLOOD COUNT 8.4 x10^3/uL (4.0-11.0)
[2019-01-04 11:20] LABS: CALCIUM 7.9 mg/dL (8.5-10.1); CREATININE 1.4 mg/dL (0.6-1.0); GFR 35.6; POTASSIUM 4.3 mmol/L (3.5-5.1)
[2019-01-04 11:26] LABS: ALBUMIN 2.7 g/dL (3.4-5.0); ALBUMIN/GLOBULIN RATIO 0.7 (1.0-1.7); TOTAL BILIRUBIN 0.4 mg/dL (0.2-1.0); TOTAL PROTEIN 6.8 g/dL (6.4-8.2)
[2019-01-04 11:36] LABS: % BANDS 9 % (0-9); % LYMPHS 4 % (24-48); % MONOS 2 % (0-10); % SEGS 85 % (35-66); ANISOCYTOSIS SLIGHT; PLT ESTIMATE DECREASED (ADEQUATE)
[2019-01-04] MEDS ORDERED: ACETAMINOPHEN 325 MG TABLET. PO PRN (11:45)
[2019-01-04] MEDS ORDERED: NITROGLYCERIN SUBLINGUAL 0.4 MG BOTTLE OF 25. SL PRN ×2 (11:45→19:00)
[2019-01-04] MEDS ORDERED: HEPARIN for IV BOLUS 10,000 UNIT/10 ML VIAL. IV PRN (11:45)
[2019-01-04] MEDS ORDERED: ONDANSETRON PF 4 MG/2 ML VIAL. IV PRN (11:45)
[2019-01-04] MEDS ORDERED: HEPARIN 25,000UTS/500ML PREMIX 500 ML IV PRN (11:45)
[2019-01-04] MEDS: IPRATRPIUM/ALBUTEROL 0.5/2.5MG 3 ML NEBU. NEB SCH ×3 (11:48→20:52)
[2019-01-04] MEDS ORDERED: ASPIRIN 325 MG TABLET PO ONE (13:15)
[2019-01-04] MEDS ORDERED: ZOLPIDEM 5 MG TABLET. PO PRN (13:15)
--- NOTE | 2019-01-04 13:17 | PDOC ---
Provider Note Provider Note history and physical dictated # [id number] KARAN KIMBLE MD Jan 04, 2019 13:17
[2019-01-04] MEDS ORDERED: HEPARIN for IV BOLUS 10,000 UNIT/10 ML VIAL. IV ONE (13:30)
--- NOTE | 2019-01-04 13:42 | HP ---
ADMIT DATE: 01/04/2019 LOCATION: She will be admitted to room #203. HISTORY OF PRESENT ILLNESS: The patient is an 88-year-old white female with history of diabetes mellitus type 2 with peripheral neuropathy, hypertension, hyperlipidemia, chronic obstructive pulmonary disease, chronic hypoxic respiratory failure, and chronic diastolic congestive heart failure, who notes an onset of shortness of breath yesterday, which progressed. She normally uses oxygen 2 liters per nasal cannula at home, but had to increase to 3-4 liters at home because her oxygen saturations were in the low 80s. She denies any cough or wheezing. She admits to some loose stools. She denies any dysuria. She was short of breath and she went to the [facility] Emergency Room where her troponin levels were noted to be elevated at 2.2 and pro-BNP was elevated at 6335, BUN was 25, creatinine was 1.4 and her creatinine is usually less than 1. She also had a chest x-ray which consists of congestive heart failure. She denied any chest pain and she subsequently went to the hospital for further evaluation of her shortness of breath and fever. She was noted to have a temperature of 99.9 degrees in the Emergency Room. She also wishes to be a DO NOT RESUSCITATE and her son was in the room who supported that. She received Lasix 40 mg IV in the Emergency Room. ALLERGIES: Include IV IODINE, ATORVASTATIN, CLONIDINE, DOXAZOSIN, FLUVASTATIN, LISINOPRIL, LOVASTATIN, NIACIN, NIFEDIPINE, and CRESTOR. MEDICATIONS: Include Advair 250 mcg 1 puff b.i.d., albuterol nebulized treatments q.i.d. p.r.n., alprazolam 0.5 mg b.i.d., carvedilol 12.5 mg b.i.d., Colace 100 mg b.i.d., fentanyl 12 mcg patch every 72 hours, furosemide 20 mg every day p.r.n., Lyrica 75 mg b.i.d., melatonin 5 mg at bedtime, [place] 5/325 b.i.d. p.r.n., omeprazole 20 mg b.i.d., Plaquenil 200 mg b.i.d., sertraline 100 mg every day, vitamin D 1000 units every day and Ambien 5 mg at bedtime. PAST MEDICAL HISTORY: Significant for diabetes mellitus type 2, treated with diet, she is with peripheral neuropathy, hypertension, hyperlipidemia, chronic obstructive pulmonary disease, chronic hypoxic respiratory failure, on oxygen 2 liters per nasal cannula at home. Fibromyalgia, depression and lumbar spondylosis. She had an esophageal stricture dilated in 2013. She has had a cholecystectomy, right hip hemiarthroplasty in 2015, had a cardiac catheterization in 2006, had a hysterectomy, lumbar laminectomy, cataract extraction and a permanent pacemaker placed in 04/2017 for sick sinus syndrome. Her last echocardiogram was done on 06/05/2018, which showed a left ventricular ejection fraction of 55-60%. SOCIAL HISTORY: She has a in-home caregiver. She does not drink alcohol nor does she smoke cigarettes. She is . She is confined to a wheelchair. FAMILY HISTORY: Noncontributory. REVIEW OF SYSTEMS: GENERAL: She denies any chills or sweats, but had a fever in the Emergency Room. CARDIOVASCULAR: Denies any chest pain. PULMONARY: She has shortness of breath. GASTROINTESTINAL: She had loose stools. ENDOCRINE: She has diabetes mellitus. SKIN: No rashes. Rest of systems are reviewed and are negative except as stated in history of present illness. PHYSICAL EXAMINATION: VITAL SIGNS: Temperature 98.9 degrees, pulse 89, respiratory rate 16, and blood pressure 98/49. Emergency Room doctor said that the last blood pressure was 108 systolic, although I do not see it written. Oxygen saturation 98% on 3 liters per nasal cannula and was 97% on 4 liters nasal cannula on admission. HEENT: Eyes, gaze is conjugate. Mouth is symmetrical. She is edentulous. Tongue is midline without yeast. NECK: No cervical lymphadenopathy or JVD. HEART: Reveals an S1, S2. There is no S3 or murmur. She has got a pacemaker below the left clavicle. LUNGS: Revealed some crackles in the bases with decreased breath sounds bilaterally. ABDOMEN: Bowel sounds are positive, soft, not distended. She does have some right and left lower quadrant tenderness without guarding. EXTREMITIES: Lower extremities without edema. Dorsalis pedis pulses 2+ bilaterally. SKIN: No rashes. NEUROLOGIC: She seems to be a little slow on responses to questions. Her eyes are closed most of the time, but she resides and is coherent, answers questions appropriately, but slower than usual. She has got 5/5 bilateral hand reel cutter, able to dorsi and plantarflex both feet, bend her knees a little bit. SKIN: No rashes. LABORATORY DATA: On review of her test results, the electrocardiogram showed normal sinus rhythm, left axis deviation, left anterior hemiblock with delayed precordial R-wave progression. She had a chest x-ray done, which showed the heart is enlarged, but stable. No pneumothorax or effusion. She had a persistent pulmonary vascular congestion, suggesting congestive heart failure. Her white count was 8.4, hemoglobin 9.7. Previous hemoglobin was 11.5. Platelet count is 117,000, previously it was 193,000. She had 86 polys and 6 lymphocytes and white cell differential. Sodium 141, potassium 4.3, chloride 102, total CO2 of 35, BUN 25, creatinine 1.4, and blood sugar 126. The liver function tests were normal. Albumin 2.7. ProBNP was 6335. Troponin levels increased to 2.2. Lactic acid was 1.0. Urinalysis has not done yet. ASSESSMENT: 1. Non-ST segment elevated myocardial infarction. 2. Acute on chronic diastolic congestive heart failure. 3. Diabetes mellitus type 2 with peripheral neuropathy. 4. Hypertension. 5. Hyperlipidemia with statin intolerance. 6. Acute kidney injury. 7. Acute on chronic hypoxic respiratory failure. 8. Fibromyalgia. 9. Chronic pain. 10. Fever. 11. Diarrhea. 12. Anemia of chronic disease with some progression in the anemia. 13. Thrombocytopenia. 14. Chronic obstructive pulmonary disease. 15. Severe protein-calorie malnutrition. 16. Metabolic encephalopathy. PLAN: At this time is to consult Dr. Cruz for Cardiology. We will admit her to the hospital to telemetry. Do serial cardiac enzymes. I have ordered an echocardiogram. Repeat her CBC and BMP tomorrow. She was given some Lasix in the Emergency Room 40 mg IV. We will continue with her home medications. Blood pressure is running on the low side, so we will decrease the carvedilol to 6.25 mg b.i.d. She wishes to be a do not resuscitate. We will order SCDs for deep vein thrombosis prophylaxis. We will also check a lipid profile tomorrow and discontinue her Colace. Culture of blood if her temperature is 100.5 or higher. Urinalysis and urine culture has also been ordered. She denies being on any antibiotics in the last month. KARAN KIMBLE MD DR: Kenia JOB#: [id number] / [id number]
[2019-01-04 15:00] VITALS: BP 92/42
[2019-01-04] MEDS: CARVEDILOL 6.25 MG TABLET. PO SCH (17:50)
[2019-01-04 19:00] VITALS: BP 141/55
[2019-01-04] MEDS: HYDROcodone/APAP 5/325MG 1 TAB TABLET PO PRN (19:09)
[2019-01-04 19:40] LABS: BILIRUBIN,URINE NEGATIVE (NEG); CLARITY,URINE CLEAR; COLOR,URINE YELLOW; NITRITE,URINE NEGATIVE (NEG); PH,URINE 5.5; PROTEIN,URINE 30 mg/dL (NEG-TRACE); UROBILINOGEN,URINE 0.2 mg/dL (0.2 mg/dL)
[2019-01-04] MEDS ORDERED: VANCOMYCIN PER PHARMACY MC PRN (19:45)
[2019-01-04 19:49] LABS: BACTERIA,URINE MODERATE /HPF (0-FEW); RBC,URINE TNTC /HPF (0-2); SQUAMOUS EPITHELIAL CELL,UR MOD /LPF; YEAST,URINE PRESENT /HPF
[2019-01-04 20:16] LABS: INFLUENZA A PATIENT NEGATIVE (NEGATIVE); INFLUENZA B PATIENT NEGATIVE (NEGATIVE)
[2019-01-04] MEDS ORDERED: VANCOMYCIN 1.75 GM in IV NORMAL SALINE 500ML BAG 500 ML IV ONE (20:45)
[2019-01-04] MEDS: fentaNYL 12MCG/HR PATCH 1 PATCH PATCH.TD72 TD SCH (20:50)
--- NOTE | 2019-01-04 20:56 | NUR ---
PT ADMITTED TO THE UNIT AT APPROX 1415 SON PRESENT UPON ADMISSION. PT EXTREMELY DROWSY AND SMELLS OF URINE. PT BATHED AND NEW GOWN ON. PT ABLE TO ANSWER QUESTIONS APPROPRIATELY AND WILL AROUSE EASILY. HISTORY OBTAINED FROM CAREGIVER SHAYE, GRANDDAUGHTER AND PT. WOUND NOTED TO BUTTOCKS AND PICTURED. CAREGIVER STATES THAT THIS IS ON THE HEALING END OF A BAD PRESSURE ULCER. PT HAS OLD DIABETIC FOOT ULCER ON RIGHT HEEL THAT IS SCABBED OVER AND CALLOUSED. SCRAP TO TOES ON RIGHT FOOT WITH SCABS, SOME NODULE ON BOTTOM RIGHT FOOT AND BLOOD BLISTER UNOPENED TO THE LEFT FOOT.
[2019-01-04] MEDS: HYDROXYCHLOROQUINE 200 MG TABLET PO SCH (21:00)
[2019-01-04] MEDS: ALPRAZolam 0.5 MG TABLET PO SCH (21:00)
[2019-01-04] MEDS ORDERED: CEFEPIME HCL IV Push 1 GM VIAL. IVP SCH ×2 (21:00)
[2019-01-04] MEDS ORDERED: VANCOMYCIN 1.5 GM in IV NORMAL SALINE 500ML BAG 500 ML IV ONE (21:00)
[2019-01-04] MEDS: PREGABALIN 75 MG CAPSULE PO SCH (21:00)
--- NOTE | 2019-01-04 21:28 | NUR ---
Pharmacy Vancomycin Dosing Note S:Consulted to monitor and dose vancomycin started 01/04/19. O:SYBIL AUGUSTINE is a 88 year old F with Empiric . Height: 5 feet, 0 inches Weight: 68.669836 kg [place] Body Weight: 45.50 Adjusted Body Weight: 54.50 Dosing Weight: Actual Other Antibiotics: CEFEPIME LABS: Last BUN: 25 Last Creatinine: 1.4 Creatinine Clearance: 24 mL/min Last WBC: 8.4 Last Procalcitonin: Tmax (past 24 hours): Microbiology: I/O: Drug Levels: Last level: on at Last dose given 01/04/19 at 2130 Vancomycin Dosing: Loading Dose: 1500 mg x1 Dosing Weight: Actual Target Trough: 15-20 A: Based on: WEIGHT, CRCL~24, SHA, P: 1. INITIATE Vancomycin 1000 mg IV q48h AFTER 1500 MG LOADING DOSE 2. Follow up LEVEL PRIOR TO 3RD DOSE IF PT REMAINS ON VANC. 3. Pharmacy will continue to monitor, follow and adjust therapy as needed. ALEX XIE [facility], 01/04/19 [id number]
[2019-01-04] MEDS ORDERED: ANTI-COAG MONITOR BY PHARMACY. MC PRN (21:30)
[2019-01-04 22:53] VITALS: BP 99/47
[2019-01-05 03:00] VITALS: BP 188/64
[2019-01-05 05:26] LABS: ALBUMIN 2.6 g/dL (3.4-5.0); ALBUMIN/GLOBULIN RATIO 0.6 (1.0-1.7); CALCIUM 7.9 mg/dL (8.5-10.1); GFR 52.4; MAGNESIUM 1.6 mg/dL (1.8-2.4); POTASSIUM 3.9 mmol/L (3.5-5.1); TOTAL BILIRUBIN 0.5 mg/dL (0.2-1.0); TOTAL PROTEIN 6.8 g/dL (6.4-8.2)
[2019-01-05 05:35] LABS: CHOLESTEROL/HDL RATIO 3.6
[2019-01-05 05:58] LABS: BASO % 0 % (0-3); EOS % 0 % (0-3); HEMATOCRIT 30.9 % (36.0-47.0); HEMOGLOBIN 9.6 g/dL (12.0-15.5); LYMPH # 0.5 x10^3/uL (1.0-4.8); LYMPH % 6 % (24-48); MEAN CORPUSCULAR HEMOGLOBIN 24 pg (25-35); MEAN CORPUSCULAR HGB CONC 31 g/dL (31-37); MEAN CORPUSCULAR VOLUME 79 fL (79-100); MONO # 0.6 x10^3/uL (0.0-1.1); MONO % 7 % (0-9); NEUT % 86 % (31-73); PLATELET COUNT 101 x10^3/uL (140-400); RED BLOOD COUNT 3.93 x10^6/uL (3.50-5.40); RED CELL DISTRIBUTION WIDTH 17.6 % (11.5-14.5)
[2019-01-05 07:00] VITALS: BP 112/33
[2019-01-05] MEDS: IPRATRPIUM/ALBUTEROL 0.5/2.5MG 3 ML NEBU. NEB SCH ×2 (08:07→11:43)
[2019-01-05] MEDS: PREGABALIN 75 MG CAPSULE PO SCH ×2 (08:48→21:13)
[2019-01-05] MEDS: ALPRAZolam 0.5 MG TABLET PO SCH ×2 (08:48→21:12)
[2019-01-05] MEDS: PANTOPRAZOLE 40 MG TABLET.DR. PO SCH (08:48)
[2019-01-05] MEDS: CHOLECALCIFEROL (VITAMIN D3) 1,000 UNIT TABLET PO SCH (08:48)
[2019-01-05] MEDS: HYDROXYCHLOROQUINE 200 MG TABLET PO SCH ×2 (08:49→21:12)
[2019-01-05] MEDS: SERTRALINE 50 MG TABLET. PO SCH (08:49)
[2019-01-05] MEDS: ASPIRIN CHEWABLE 81 MG TABLET. PO SCH (08:49)
[2019-01-05] MEDS: CARVEDILOL 6.25 MG TABLET. PO SCH ×2 (08:49→17:43)
[2019-01-05] MEDS ORDERED: fentaNYL 12MCG/HR PATCH 1 PATCH PATCH.TD72 TD SCH (09:00)
--- NOTE | 2019-01-05 10:11 | EKG ---
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
--- NOTE | 2019-01-05 10:11 | PDOC ---
Infectious Disease Note Vital Sign Vital Signs Vital Signs Date Time Temp Pulse Resp B/P (MAP) Pulse Ox O2 Delivery O2 Flow Rate FiO2 01/05/19 08:49 98 141/58 01/05/19 08:10 95 Nasal Cannula 4.0 01/05/19 07:00 100.6 22 100.6 Labs Lab Laboratory Tests Test 01/04/19 11:01 01/04/19 14:20 01/04/19 17:17 01/04/19 19:27 White Blood Count 8.4 x10^3/uL (4.0-11.0) Red Blood Count 4.01 x10^6/uL (3.50-5.40) Hemoglobin 9.7 g/dL (12.0-15.5) Hematocrit 31.5 % (36.0-47.0) Mean Corpuscular Volume 79 fL (79-100) Mean Corpuscular Hemoglobin 24 pg (25-35) Mean Corpuscular Hemoglobin Concent 31 g/dL (31-37) Red Cell Distribution Width 17.5 % (11.5-14.5) Platelet Count 117 x10^3/uL (140-400) Neutrophils (%) (Auto) 86 % (31-73) Lymphocytes (%) (Auto) 6 % (24-48) Monocytes (%) (Auto) 8 % (0-9) Eosinophils (%) (Auto) 0 % (0-3) Basophils (%) (Auto) 0 % (0-3) Neutrophils # (Auto) 7.2 x10^3/uL (1.8-7.7) Lymphocytes # (Auto) 0.5 x10^3/uL (1.0-4.8) Monocytes # (Auto) 0.7 x10^3/uL (0.0-1.1) Eosinophils # (Auto) 0.0 x10^3/uL (0.0-0.7) Basophils # (Auto) 0.0 x10^3/uL (0.0-0.2) Segmented Neutrophils % 85 % (35-66) Band Neutrophils % 9 % (0-9) Lymphocytes % 4 % (24-48) Monocytes % 2 % (0-10) Platelet Estimate Decreased (ADEQUATE) Basophilic Stippling Present Anisocytosis Slight Sodium Level 141 mmol/L (136-145) Potassium Level 4.3 mmol/L (3.5-5.1) Chloride Level 102 mmol/L (98-107) Carbon Dioxide Level 35 mmol/L (21-32) Anion Gap 4 (6-14) Blood Urea Nitrogen 25 mg/dL (7-20) Creatinine 1.4 mg/dL (0.6-1.0) Estimated GFR (Cockcroft-Gault) 35.6 BUN/Creatinine Ratio 18 (6-20) Glucose Level 126 mg/dL (70-99) Lactic Acid Level 1.0 mmol/L (0.4-2.0) Calcium Level 7.9 mg/dL (8.5-10.1) Total Bilirubin 0.4 mg/dL (0.2-1.0) Aspartate Amino Transf (AST/SGOT) 33 U/L (15-37) Alanine Aminotransferase (ALT/SGPT) 13 U/L (14-59) Alkaline Phosphatase 63 U/L (46-116) Troponin I Quantitative 2.224 ng/mL (0.000-0.055) 2.419 ng/mL (0.000-0.055) PQ-Mmr-L-Type Natriuretic Peptide 6335 pg/mL (0-449) Total Protein 6.8 g/dL (6.4-8.2) Albumin 2.7 g/dL (3.4-5.0) Albumin/Globulin Ratio 0.7 (1.0-1.7) Glucose (Fingerstick) 112 mg/dL (70-99) Urine Collection Type Unknown Urine Color Yellow Urine Clarity Clear Urine pH 5.5 Urine Specific [place] 1.015 Urine Protein 30 mg/dL (NEG-TRACE) Urine Glucose (UA) Negative mg/dL (NEG) Urine Ketones (Stick) Negative mg/dL (NEG) Urine Blood Large (NEG) Urine Nitrite Negative (NEG) Urine Bilirubin Negative (NEG) Urine Urobilinogen Dipstick 0.2 mg/dL (0.2 mg/dL) Urine Leukocyte Esterase Negative (NEG) Urine RBC Tntc /HPF (0-2) Urine WBC 5-10 /HPF (0-4) Urine Squamous Epithelial Cells Mod /LPF Urine Bacteria Moderate /HPF (0-FEW) Urine Yeast Present /HPF Test 01/04/19 19:30 01/04/19 20:00 01/04/19 20:43 01/05/19 04:45 Influenza Type A Antigen Negative (NEGATIVE) Influenza Type B Antigen Negative (NEGATIVE) Heparin Anti-Xa Act, Unfractionated 0.43 IU/mL (0.30-0.70) 0.26 IU/mL (0.30-0.70) Troponin I Quantitative 3.036 ng/mL (0.000-0.055) Glucose (Fingerstick) 137 mg/dL (70-99) White Blood Count 8.0 x10^3/uL (4.0-11.0) Red Blood Count 3.93 x10^6/uL (3.50-5.40) Hemoglobin 9.6 g/dL (12.0-15.5) Hematocrit 30.9 % (36.0-47.0) Mean Corpuscular Volume 79 fL (79-100) Mean Corpuscular Hemoglobin 24 pg (25-35) Mean Corpuscular Hemoglobin Concent 31 g/dL (31-37) Red Cell Distribution Width 17.6 % (11.5-14.5) Platelet Count 101 x10^3/uL (140-400) Neutrophils (%) (Auto) 86 % (31-73) Lymphocytes (%) (Auto) 6 % (24-48) Monocytes (%) (Auto) 7 % (0-9) Eosinophils (%) (Auto) 0 % (0-3) Basophils (%) (Auto) 0 % (0-3) Neutrophils # (Auto) 7.0 x10^3/uL (1.8-7.7) Lymphocytes # (Auto) 0.5 x10^3/uL (1.0-4.8) Monocytes # (Auto) 0.6 x10^3/uL (0.0-1.1) Eosinophils # (Auto) 0.0 x10^3/uL (0.0-0.7) Basophils # (Auto) 0.0 x10^3/uL (0.0-0.2) Sodium Level 138 mmol/L (136-145) Potassium Level 3.9 mmol/L (3.5-5.1) Chloride Level 99 mmol/L (98-107) Carbon Dioxide Level 34 mmol/L (21-32) Anion Gap 5 (6-14) Blood Urea Nitrogen 26 mg/dL (7-20) Creatinine 1.0 mg/dL (0.6-1.0) Estimated GFR (Cockcroft-Gault) 52.4 BUN/Creatinine Ratio 26 (6-20) Glucose Level 129 mg/dL (70-99) Calcium Level 7.9 mg/dL (8.5-10.1) Magnesium Level 1.6 mg/dL (1.8-2.4) Total Bilirubin 0.5 mg/dL (0.2-1.0) Aspartate Amino Transf (AST/SGOT) 73 U/L (15-37) Alanine Aminotransferase (ALT/SGPT) 14 U/L (14-59) Alkaline Phosphatase 59 U/L (46-116) Total Protein 6.8 g/dL (6.4-8.2) Albumin 2.6 g/dL (3.4-5.0) Albumin/Globulin Ratio 0.6 (1.0-1.7) Triglycerides Level 131 mg/dL (0-150) Cholesterol Level 168 mg/dL (0-200) LDL Cholesterol, Calculated 95 mg/dL (0-100) VLDL Cholesterol, Calculated 26 mg/dL (0-40) Non-HDL Cholesterol Calculated 121 mg/dL (0-129) HDL Cholesterol 47 mg/dL (40-60) Cholesterol/HDL Ratio 3.6 Test 01/05/19 08:25 Glucose (Fingerstick) 119 mg/dL (70-99) Micro 01/04. BLOOD CULTURE Final GRAM POSITIVE COCCI IN CHAINS, SUGGESTIVE OF STREP, IN 2 OF 4 BOTTLES, ONE OF TWO SETS. Objective Assessment Bacteremia with GPC, POA 01/04 (2 of 4 bottles) Fever Questionable UTI, POA h/o MRSA Acute-on chronic respiratory failure Acute-on chronic CHF SHA - better RA on plaquenil Diabetes Pacemaker Plan Plan of Care vancomycin per phamacy protocal Continue Cefepime but adjust dose for renal function f/u cultures Labs in am Maintain aspiration precautions Contact isolation D/w nursing Thank you [id number] Attending Co-Sign The patient was seen and interviewed as well as examined at the bedside. The chart was reviewed. The case was discussed. Agree with the plan of care. RONNIE RANDHAWA APRN Jan 05, 2019 10:11 KRISTIN DARLING MD Jan 05, 2019 12:36
--- NOTE | 2019-01-05 10:34 | CARD ---
MR#: [id number] Date of Study: 01/04/2019 Ordering Physician: KARAN KIMBLE, Referring Physician: KARAN KIMBLE Tech: Ladonna Ross RDCS APPROVED REPORT EXAM: Two-dimensional and M-mode echocardiogram with Doppler and color Doppler. Other Information Quality : Fair Technically limited study due to body habitus. INDICATION Congestive Heart Failure Non STEMI 2D DIMENSIONS RVDd2.4 (2.9-3.5cm)Left Atrium(2D)3.5 (1.6-4.0cm) IVSd0.9 (0.7-1.1cm)Aortic Root(2D)2.6 (2.0-3.7cm) LVDd3.4 (3.9-5.9cm)LVOT Diameter1.9 (1.8-2.4cm) PWd0.9 (0.7-1.1cm)LVDs2.3 (2.5-4.0cm) FS (%) 30.6 %SV27.9 ml LVEF(%)59.3 (>50%) Aortic Valve AoV Peak Quique.191.6cm/sAoV VTI36.4cm AO Peak GR.14.7mmHgLVOT VTI 21.17cm AO Mean GR.9mmHgAVA (VTI)1.70cm2 Mitral Valve MV E Dxezefpn511.5cm/sMV DECEL ZCIF233ne MV A Pxevdszk145.0cm/sE/A Ratio1.2 TDI Lateral E' P. V4.25cm/sMedial E' P. V4.57cm/s E/Lateral E'31.4E/Medial E'29.2 Tricuspid Valve TR P. Tqyuqaow635tm/sRAP [id number] TR Peak Gr.82hvKqYLGH63zjRa Pulmonary Vein S1 Plnyruww84.9cm/sS2 Rijabgqk12.87cm/s D2 Ttyywsqn51.9cm/s LEFT VENTRICLE The left ventricle is normal size. There is normal left ventricular wall thickness. The left ventricu lar systolic function is normal and the ejection fraction is within normal range. The Ejection Fracti on is 55-60%. There is grossly normal LV segmental wall motion. Not well visualized. Tissue Doppler i maging reveals moderate left ventricular diastolic dysfunction. RIGHT VENTRICLE The right ventricle is normal size. The right ventricular systolic function is normal. ATRIA The left atrium is mildly dilated. The right atrium size is normal. The interatrial septum is intact with no evidence for an atrial septal defect or patent foramen ovale as noted on 2-D or Doppler imagi ng. AORTIC VALVE The aortic valve is not well visualized. Doppler and Color Flow revealed no significant aortic regurg itation. Calculated aortic valve area is 1.7 cm2 with maximum pressure gradient of 15 mmHg and mean p ressure gradient of 9 mmHg. Doppler and color-flow analysis revealed mild aortic stenosis. MITRAL VALVE The mitral valve is heavily calcified and displays decreased opening. Mitral annular calcification is severe. There is no evidence of mitral valve prolapse. Calculated mitral valve area is 1.7 cm2 with m aximum pressure gradient of 9 mmHg and mean pressure gradient of 6 mmHg. There is moderate mitral raquel ve stenosis. TRICUSPID VALVE Doppler and Color Flow revealed trace to mild tricuspid regurgitation. There is moderate pulmonary hy pertension. The PA pressure was estimated at 51 mmHg. There is no tricuspid valve stenosis. PULMONIC VALVE The pulmonic valve is not well visualized. Doppler and Color Flow revealed no pulmonic valvular regur gitation. There is no pulmonic valvular stenosis. GREAT VESSELS The aortic root is normal in size. The ascending aorta is not well seen. The IVC is normal in size an d collapses >50% with inspiration. PERICARDIAL EFFUSION There is no evidence of significant pericardial effusion. Critical Notification Critical Value: No <Conclusion> The left ventricular systolic function is normal and the ejection fraction is within normal range. Th e Ejection Fraction is 55-60%. There is grossly normal LV segmental wall motion. Not well visualized. Calculated mitral valve area is 1.7 cm2 with maximum pressure gradient of 9 mmHg and mean pressure gr adient of 6 mmHg. There is moderate mitral valve stenosis. Doppler and Color Flow revealed trace to mild tricuspid regurgitation. There is moderate pulmonary hy pertension. The PA pressure was estimated at 51 mmHg. Signed by : Iftikhar Cruz, Electronically Approved : 01/05/2019 10:34:06
[2019-01-05] MEDS: VANCOMYCIN PER PHARMACY MC PRN (10:41)
[2019-01-05 11:00] VITALS: BP 105/46
--- NOTE | 2019-01-05 11:01 | CONS ---
DATE OF CONSULTATION: 01/05/2019 REQUESTING PHYSICIAN: Dr. Castelan. REASON FOR CONSULTATION: Positive blood culture. HISTORY OF PRESENT ILLNESS: This patient is an 86-year-old female with a past medical history of chronic hypoxic respiratory failure, COPD, oxygen dependent on 2 liters, chronic congestive heart failure and type 2 diabetes, wheelchair bound, who lives at home with 24-hour care. She presented to the ER with worsening shortness of air and elevated troponin level. A chest x-ray showed persistent pulmonary vascular congestion. Blood cultures have returned with Gram-positive cocci in chains suggestive of strep in 2 of 4 bottles. She has been running fevers since. She feels weak and is not very hungry. She denies chest pain or cough. Denies nausea, vomiting, constipation or diarrhea. Her oxygen requirements have increased to 4 liters. Denies rash or itching. She has a Gray catheter in place. Urinalysis was positive for wbc, bacteria, squamous epithelial cells and yeast. Urine culture is pending. PAST MEDICAL HISTORY: History of urinary tract infection with viridans strep E. coli (resistant to ampicillin, Cipro, Levaquin, Bactrim and intermediate susceptibility to nitrofurantoin), history of H. influenza pneumonia, history of MRSA, history of Mycobacterium avium complex in 2018; chronic respiratory failure; COPD, oxygen dependent, 2 liters; chronic diastolic congestive heart failure; hypertension; rheumatoid arthritis obesity; obstructive sleep apnea; fibromyalgia; gastroesophageal reflux disease; diabetes; peripheral neuropathy. PAST SURGICAL HISTORY: Pacemaker placement, lumbar laminectomy, esophageal dilatation, cataract extraction, right hip hemiarthroplasty, colonoscopy with polypectomy. SOCIAL HISTORY: The patient is and lives at home. She is wheelchair bound. She has 24-hour care. She has a Yorkie. She is a former smoker. FAMILY HISTORY: Brain cancer and congestive heart failure. ALLERGIES: Reviewed on the APR. No antibiotics listed. MEDICATIONS: Vancomycin, cefepime, Lasix, heparin, Plaquenil, DuoNeb. Other medications are available and have been reviewed on the APR. REVIEW OF SYSTEMS: Per HPI, otherwise all other review of systems are negative. PHYSICAL EXAMINATION: VITAL SIGNS: Temperature is 100.6, T-max 101.6, blood pressure 141/58, heart rate 98, respiratory rate 22, pulse oximetry 95% on 4 liters oxygen. BMI 33.6. GENERAL: The patient is propped up in bed, resting quietly, arouses to name. HEENT: Pupils equally round. Oral cavity had pink and moist. Dentures in place. NECK: Supple. LUNGS: Diminished aeration in the bases. Nonlabored. HEART: S1 and S2 regular. Pacemaker. ABDOMEN: Obese, soft and nontender with bowel sounds present. GENITOURINARY: Gray in place. EXTREMITIES: No gross edema or cyanosis. SKIN: Warm to touch, no signs of rash. NEUROLOGIC: Arouses to name. Answers simple questions appropriately, but somewhat lethargic and attention span decreased. LABORATORY DATA: Today's WBC 8.0, hemoglobin 9.6, platelets 101. Creatinine 1.0 from 1.4, BUN 26. Sodium 138, potassium 3.9, glucose 129. Lactic acid 1.0. Total bilirubin 0.4, AST 33, ALT 13, albumin 2.7. Troponin 2.419. Urinalysis per HPI. Blood cultures show gram-positive cocci in chains, 2 of 4 bottles (11-29). Urine culture is pending. Influenza screen is negative. Chest x-ray shows cardiomegaly and mild vascular congestion suggestive of CHF. IMPRESSION: 1. Bacteremia with Gram-positive cocci, present on admission. 2. Fever. 3. Questionable urinary tract infection present on admission. 4. History of MRSA. 5. Acute on chronic respiratory failure. 6. Acute on chronic congestive heart failure. 7. Acute kidney injury, improved. 8. Rheumatoid arthritis, on Plaquenil. 9. Diabetes. PLAN: Continue with vancomycin per pharmacy protocol as well as cefepime, but adjust dose for renal function. Awaiting identification of GPC and susceptibilities. We will follow up on urine culture. Labs have been ordered for the morning. Monitor temperature. Maintain aspiration precautions. Contact isolation for history of MRSA. Thank you, Dr. Castelan, for asking us to participate in this patient's care. Should you have further questions or concerns, please call. KRISTIN DARLING MD DR: ANTIONETTE/ben JOB#: [id number] / [id number]
--- NOTE | 2019-01-05 11:06 | PDOC ---
PROGRESS NOTES Subjective Subjective she does not feel well. febrile yesterday. blood culture positive for GPC suggesting strep. started iv vancomycin and cefepime yesterday. has pyuria. wbc normal. currently on iv heparin. NSR now. echo with preserved LVEF with mod mitral stenosis Objective Objective Vital Signs Date Time Temp Pulse Resp B/P (MAP) Pulse Ox O2 Delivery O2 Flow Rate FiO2 01/05/19 08:49 98 141/58 01/05/19 08:10 95 Nasal Cannula 4.0 01/05/19 07:00 100.6 22 100.6 Intake and Output 01/05/19 07:00 Intake Total 1209 ml Output Total 1150 ml Balance 59 ml Intake Oral 520 ml IV Total 689 ml Output Urine Total 1150 ml Physical Exam Abdomen: Soft, Other (mild bilateral lower abdominal tenderness without guarding. not distended. bowel sounds heard.) Heart: Regular rate, Normal S1, Normal S2 Extremities: No edema General: Other (sleepy but does talk) HEENT: Atraumatic Lungs: Clear to auscultation Neuro: Normal speech Psych/Mental Status: Mood NL Skin: No rashes Assessment Assessment ProblemsASSESSMENT: 1. Non-ST segment elevated myocardial infarction. 2. Acute on chronic diastolic congestive heart failure. 3. GPC bacteremia suggesting strep with sepsis 4. pyuria 5. Hyperlipidemia with statin intolerance. 6. Acute kidney injury. due to dehydration resolved 7. Acute on chronic hypoxic respiratory failure. 8. Fibromyalgia. 9. Chronic pain. 10. Fever. 11. Diarrhea. 12. Anemia of chronic disease with some progression in the anemia. 13. Thrombocytopenia. 14. Chronic obstructive pulmonary disease. 15. Severe protein-calorie malnutrition. 16. Metabolic encephalopathy. diabetes mellitus type 2 with peripheral neuropathy hypertension moderate mitral stenosis per echo Medical Problems: (1) Acute and chronic respiratory failure Status: Acute (2) CHF exacerbation Status: Acute (3) Elevated troponin Status: Acute Plan Plan of Care d/c iv heparin drip SQ heparin for DVT prophylaxis continue iv vancomycin and cefepime cxr tomorrow lab tomorrow Comment Review of Relevant I have reviewed the following items lizbeth (where applicable) has been applied. Labs Laboratory Tests Test 01/04/19 11:01 01/04/19 14:20 01/04/19 17:17 01/04/19 19:27 White Blood Count 8.4 x10^3/uL (4.0-11.0) Red Blood Count 4.01 x10^6/uL (3.50-5.40) Hemoglobin 9.7 g/dL (12.0-15.5) Hematocrit 31.5 % (36.0-47.0) Mean Corpuscular Volume 79 fL (79-100) Mean Corpuscular Hemoglobin 24 pg (25-35) Mean Corpuscular Hemoglobin Concent 31 g/dL (31-37) Red Cell Distribution Width 17.5 % (11.5-14.5) Platelet Count 117 x10^3/uL (140-400) Neutrophils (%) (Auto) 86 % (31-73) Lymphocytes (%) (Auto) 6 % (24-48) Monocytes (%) (Auto) 8 % (0-9) Eosinophils (%) (Auto) 0 % (0-3) Basophils (%) (Auto) 0 % (0-3) Neutrophils # (Auto) 7.2 x10^3/uL (1.8-7.7) Lymphocytes # (Auto) 0.5 x10^3/uL (1.0-4.8) Monocytes # (Auto) 0.7 x10^3/uL (0.0-1.1) Eosinophils # (Auto) 0.0 x10^3/uL (0.0-0.7) Basophils # (Auto) 0.0 x10^3/uL (0.0-0.2) Segmented Neutrophils % 85 % (35-66) Band Neutrophils % 9 % (0-9) Lymphocytes % 4 % (24-48) Monocytes % 2 % (0-10) Platelet Estimate Decreased (ADEQUATE) Basophilic Stippling Present Anisocytosis Slight Sodium Level 141 mmol/L (136-145) Potassium Level 4.3 mmol/L (3.5-5.1) Chloride Level 102 mmol/L (98-107) Carbon Dioxide Level 35 mmol/L (21-32) Anion Gap 4 (6-14) Blood Urea Nitrogen 25 mg/dL (7-20) Creatinine 1.4 mg/dL (0.6-1.0) Estimated GFR (Cockcroft-Gault) 35.6 BUN/Creatinine Ratio 18 (6-20) Glucose Level 126 mg/dL (70-99) Lactic Acid Level 1.0 mmol/L (0.4-2.0) Calcium Level 7.9 mg/dL (8.5-10.1) Total Bilirubin 0.4 mg/dL (0.2-1.0) Aspartate Amino Transf (AST/SGOT) 33 U/L (15-37) Alanine Aminotransferase (ALT/SGPT) 13 U/L (14-59) Alkaline Phosphatase 63 U/L (46-116) Troponin I Quantitative 2.224 ng/mL (0.000-0.055) 2.419 ng/mL (0.000-0.055) BK-Rxm-Z-Type Natriuretic Peptide 6335 pg/mL (0-449) Total Protein 6.8 g/dL (6.4-8.2) Albumin 2.7 g/dL (3.4-5.0) Albumin/Globulin Ratio 0.7 (1.0-1.7) Glucose (Fingerstick) 112 mg/dL (70-99) Urine Collection Type Unknown Urine Color Yellow Urine Clarity Clear Urine pH 5.5 Urine Specific [place] 1.015 Urine Protein 30 mg/dL (NEG-TRACE) Urine Glucose (UA) Negative mg/dL (NEG) Urine Ketones (Stick) Negative mg/dL (NEG) Urine Blood Large (NEG) Urine Nitrite Negative (NEG) Urine Bilirubin Negative (NEG) Urine Urobilinogen Dipstick 0.2 mg/dL (0.2 mg/dL) Urine Leukocyte Esterase Negative (NEG) Urine RBC Tntc /HPF (0-2) Urine WBC 5-10 /HPF (0-4) Urine Squamous Epithelial Cells Mod /LPF Urine Bacteria Moderate /HPF (0-FEW) Urine Yeast Present /HPF Test 01/04/19 19:30 01/04/19 20:00 01/04/19 20:43 01/05/19 04:45 Influenza Type A Antigen Negative (NEGATIVE) Influenza Type B Antigen Negative (NEGATIVE) Heparin Anti-Xa Act, Unfractionated 0.43 IU/mL (0.30-0.70) 0.26 IU/mL (0.30-0.70) Troponin I Quantitative 3.036 ng/mL (0.000-0.055) Glucose (Fingerstick) 137 mg/dL (70-99) White Blood Count 8.0 x10^3/uL (4.0-11.0) Red Blood Count 3.93 x10^6/uL (3.50-5.40) Hemoglobin 9.6 g/dL (12.0-15.5) Hematocrit 30.9 % (36.0-47.0) Mean Corpuscular Volume 79 fL (79-100) Mean Corpuscular Hemoglobin 24 pg (25-35) Mean Corpuscular Hemoglobin Concent 31 g/dL (31-37) Red Cell Distribution Width 17.6 % (11.5-14.5) Platelet Count 101 x10^3/uL (140-400) Neutrophils (%) (Auto) 86 % (31-73) Lymphocytes (%) (Auto) 6 % (24-48) Monocytes (%) (Auto) 7 % (0-9) Eosinophils (%) (Auto) 0 % (0-3) Basophils (%) (Auto) 0 % (0-3) Neutrophils # (Auto) 7.0 x10^3/uL (1.8-7.7) Lymphocytes # (Auto) 0.5 x10^3/uL (1.0-4.8) Monocytes # (Auto) 0.6 x10^3/uL (0.0-1.1) Eosinophils # (Auto) 0.0 x10^3/uL (0.0-0.7) Basophils # (Auto) 0.0 x10^3/uL (0.0-0.2) Sodium Level 138 mmol/L (136-145) Potassium Level 3.9 mmol/L (3.5-5.1) Chloride Level 99 mmol/L (98-107) Carbon Dioxide Level 34 mmol/L (21-32) Anion Gap 5 (6-14) Blood Urea Nitrogen 26 mg/dL (7-20) Creatinine 1.0 mg/dL (0.6-1.0) Estimated GFR (Cockcroft-Gault) 52.4 BUN/Creatinine Ratio 26 (6-20) Glucose Level 129 mg/dL (70-99) Calcium Level 7.9 mg/dL (8.5-10.1) Magnesium Level 1.6 mg/dL (1.8-2.4) Total Bilirubin 0.5 mg/dL (0.2-1.0) Aspartate Amino Transf (AST/SGOT) 73 U/L (15-37) Alanine Aminotransferase (ALT/SGPT) 14 U/L (14-59) Alkaline Phosphatase 59 U/L (46-116) Total Protein 6.8 g/dL (6.4-8.2) Albumin 2.6 g/dL (3.4-5.0) Albumin/Globulin Ratio 0.6 (1.0-1.7) Triglycerides Level 131 mg/dL (0-150) Cholesterol Level 168 mg/dL (0-200) LDL Cholesterol, Calculated 95 mg/dL (0-100) VLDL Cholesterol, Calculated 26 mg/dL (0-40) Non-HDL Cholesterol Calculated 121 mg/dL (0-129) HDL Cholesterol 47 mg/dL (40-60) Cholesterol/HDL Ratio 3.6 Test 01/05/19 08:25 Glucose (Fingerstick) 119 mg/dL (70-99) Laboratory Tests Test 01/04/19 11:01 01/04/19 14:20 01/04/19 17:17 01/04/19 19:27 White Blood Count 8.4 x10^3/uL (4.0-11.0) Red Blood Count 4.01 x10^6/uL (3.50-5.40) Hemoglobin 9.7 g/dL (12.0-15.5) Hematocrit 31.5 % (36.0-47.0) Mean Corpuscular Volume 79 fL (79-100) Mean Corpuscular Hemoglobin 24 pg (25-35) Mean Corpuscular Hemoglobin Concent 31 g/dL (31-37) Red Cell Distribution Width 17.5 % (11.5-14.5) Platelet Count 117 x10^3/uL (140-400) Neutrophils (%) (Auto) 86 % (31-73) Lymphocytes (%) (Auto) 6 % (24-48) Monocytes (%) (Auto) 8 % (0-9) Eosinophils (%) (Auto) 0 % (0-3) Basophils (%) (Auto) 0 % (0-3) Neutrophils # (Auto) 7.2 x10^3/uL (1.8-7.7) Lymphocytes # (Auto) 0.5 x10^3/uL (1.0-4.8) Monocytes # (Auto) 0.7 x10^3/uL (0.0-1.1) Eosinophils # (Auto) 0.0 x10^3/uL (0.0-0.7) Basophils # (Auto) 0.0 x10^3/uL (0.0-0.2) Segmented Neutrophils % 85 % (35-66) Band Neutrophils % 9 % (0-9) Lymphocytes % 4 % (24-48) Monocytes % 2 % (0-10) Platelet Estimate Decreased (ADEQUATE) Basophilic Stippling Present Anisocytosis Slight Sodium Level 141 mmol/L (136-145) Potassium Level 4.3 mmol/L (3.5-5.1) Chloride Level 102 mmol/L (98-107) Carbon Dioxide Level 35 mmol/L (21-32) Anion Gap 4 (6-14) Blood Urea Nitrogen 25 mg/dL (7-20) Creatinine 1.4 mg/dL (0.6-1.0) Estimated GFR (Cockcroft-Gault) 35.6 BUN/Creatinine Ratio 18 (6-20) Glucose Level 126 mg/dL (70-99) Lactic Acid Level 1.0 mmol/L (0.4-2.0) Calcium Level 7.9 mg/dL (8.5-10.1) Total Bilirubin 0.4 mg/dL (0.2-1.0) Aspartate Amino Transf (AST/SGOT) 33 U/L (15-37) Alanine Aminotransferase (ALT/SGPT) 13 U/L (14-59) Alkaline Phosphatase 63 U/L (46-116) Troponin I Quantitative 2.224 ng/mL (0.000-0.055) 2.419 ng/mL (0.000-0.055) AY-Nuu-M-Type Natriuretic Peptide 6335 pg/mL (0-449) Total Protein 6.8 g/dL (6.4-8.2) Albumin 2.7 g/dL (3.4-5.0) Albumin/Globulin Ratio 0.7 (1.0-1.7) Glucose (Fingerstick) 112 mg/dL (70-99) Urine Collection Type Unknown Urine Color Yellow Urine Clarity Clear Urine pH 5.5 Urine Specific [place] 1.015 Urine Protein 30 mg/dL (NEG-TRACE) Urine Glucose (UA) Negative mg/dL (NEG) Urine Ketones (Stick) Negative mg/dL (NEG) Urine Blood Large (NEG) Urine Nitrite Negative (NEG) Urine Bilirubin Negative (NEG) Urine Urobilinogen Dipstick 0.2 mg/dL (0.2 mg/dL) Urine Leukocyte Esterase Negative (NEG) Urine RBC Tntc /HPF (0-2) Urine WBC 5-10 /HPF (0-4) Urine Squamous Epithelial Cells Mod /LPF Urine Bacteria Moderate /HPF (0-FEW) Urine Yeast Present /HPF Test 01/04/19 19:30 01/04/19 20:00 01/04/19 20:43 01/05/19 04:45 Influenza Type A Antigen Negative (NEGATIVE) Influenza Type B Antigen Negative (NEGATIVE) Heparin Anti-Xa Act, Unfractionated 0.43 IU/mL (0.30-0.70) 0.26 IU/mL (0.30-0.70) Troponin I Quantitative 3.036 ng/mL (0.000-0.055) Glucose (Fingerstick) 137 mg/dL (70-99) White Blood Count 8.0 x10^3/uL (4.0-11.0) Red Blood Count 3.93 x10^6/uL (3.50-5.40) Hemoglobin 9.6 g/dL (12.0-15.5) Hematocrit 30.9 % (36.0-47.0) Mean Corpuscular Volume 79 fL (79-100) Mean Corpuscular Hemoglobin 24 pg (25-35) Mean Corpuscular Hemoglobin Concent 31 g/dL (31-37) Red Cell Distribution Width 17.6 % (11.5-14.5) Platelet Count 101 x10^3/uL (140-400) Neutrophils (%) (Auto) 86 % (31-73) Lymphocytes (%) (Auto) 6 % (24-48) Monocytes (%) (Auto) 7 % (0-9) Eosinophils (%) (Auto) 0 % (0-3) Basophils (%) (Auto) 0 % (0-3) Neutrophils # (Auto) 7.0 x10^3/uL (1.8-7.7) Lymphocytes # (Auto) 0.5 x10^3/uL (1.0-4.8) Monocytes # (Auto) 0.6 x10^3/uL (0.0-1.1) Eosinophils # (Auto) 0.0 x10^3/uL (0.0-0.7) Basophils # (Auto) 0.0 x10^3/uL (0.0-0.2) Sodium Level 138 mmol/L (136-145) Potassium Level 3.9 mmol/L (3.5-5.1) Chloride Level 99 mmol/L (98-107) Carbon Dioxide Level 34 mmol/L (21-32) Anion Gap 5 (6-14) Blood Urea Nitrogen 26 mg/dL (7-20) Creatinine 1.0 mg/dL (0.6-1.0) Estimated GFR (Cockcroft-Gault) 52.4 BUN/Creatinine Ratio 26 (6-20) Glucose Level 129 mg/dL (70-99) Calcium Level 7.9 mg/dL (8.5-10.1) Magnesium Level 1.6 mg/dL (1.8-2.4) Total Bilirubin 0.5 mg/dL (0.2-1.0) Aspartate Amino Transf (AST/SGOT) 73 U/L (15-37) Alanine Aminotransferase (ALT/SGPT) 14 U/L (14-59) Alkaline Phosphatase 59 U/L (46-116) Total Protein 6.8 g/dL (6.4-8.2) Albumin 2.6 g/dL (3.4-5.0) Albumin/Globulin Ratio 0.6 (1.0-1.7) Triglycerides Level 131 mg/dL (0-150) Cholesterol Level 168 mg/dL (0-200) LDL Cholesterol, Calculated 95 mg/dL (0-100) VLDL Cholesterol, Calculated 26 mg/dL (0-40) Non-HDL Cholesterol Calculated 121 mg/dL (0-129) HDL Cholesterol 47 mg/dL (40-60) Cholesterol/HDL Ratio 3.6 Test 01/05/19 08:25 Glucose (Fingerstick) 119 mg/dL (70-99) Microbiology 01/04/19 Blood Culture - Final, Complete Medications Current Medications Albuterol/ Ipratropium (Duoneb) 3 ml 1X ONCE NEB Last administered on 01/04/19at 10:45; Start 01/04/19 at 10:45; Stop 01/04/19 at 10:46; Status DC Furosemide (Lasix) 40 mg 1X ONCE IVP Last administered on 01/04/19at 11:07; Start 01/04/19 at 10:45; Stop 01/04/19 at 10:46; Status DC Heparin Sodium/ Dextrose 500 ml @ 16.3 mls/hr CONT PRN IV protocol Last administered on 01/04/19at 13:30; Start 01/04/19 at 11:45 Heparin Sodium (Porcine) (Heparin Sodium) 1,700 unit PRN Q6HRS PRN IV FOR UFH LEVEL LESS THAN 0.2; Start 01/04/19 at 11:45 Ondansetron HCl (Zofran) 4 mg PRN Q8HRS PRN IV NAUSEA/VOMITING; Start 01/04/19 at 11:45; Stop 01/05/19 at 11:44 Acetaminophen (Tylenol) 650 mg PRN Q4HRS PRN PO FEVER; Start 01/04/19 at 1 1:45; Stop 01/05/19 at 11:44 Nitroglycerin (Nitrostat) 0.4 mg PRN Q5MIN PRN SL CHEST PAIN; Start 01/04/19 at 11:45; Stop 01/04/19 at 18:59; Status DC Albuterol/ Ipratropium (Duoneb) 3 ml RTQID NEB Last administered on 01/05/19at 08:07; Start 01/04/19 at 12:00; Stop 01/05/19 at 11:59 Heparin Sodium (Porcine) (Heparin Sodium) 4,000 unit 1X ONCE IV Last administered on 01/04/19at 13:28; Start 01/04/19 at 13:30; Stop 01/04/19 at 13:31; Status DC Carvedilol (Coreg) 6.25 mg BIDWMEALS PO Last administered on 01/05/19at 08:49; Start 01/04/19 at 17:00 Aspirin (Ede Aspirin) 325 mg 1X ONCE PO Last administered on 01/04/19at 15:17; Start 01/04/19 at 13:15; Stop 01/04/19 at 13:47; Status DC Aspirin (Children'S Aspirin) 81 mg DAILYWBKFT PO Last administered on 01/05/19at 08:49; Start 01/05/19 at 08:00 Alprazolam (Xanax) 0.5 mg BID PO Last administered on 01/05/19 08:48; Start 01/04/19 at 21:00 Fentanyl (Duragesic 12mcg/ Hr Patch) 1 patch Q3DAYS TD ; Start 01/05/19 at 09:00; Stop 01/04/19 at 18:59; Status DC Pregabalin (Lyrica) 75 mg BID PO Last administered on 01/05/19 08:48; Start 01/04/19 at 21:00 Acetaminophen/ Hydrocodone Bitart (Lortab 5/325) 1 tab PRN BID PRN PO PAIN Last administered on 01/04/19 19:09; Start 01/04/19 at 13:15 Pantoprazole Sodium (Protonix) 40 mg DAILY PO Last administered on 01/05/19 08:48; Start 01/05/19 at 09:00 Hydroxychloroquine Sulfate (Plaquenil) 200 mg BID PO Last administered on 01/05/19 08:49; Start 01/04/19 at 21:00 Sertraline HCl (Zoloft) 100 mg DAILY PO Last administered on 01/05/19 08:49; Start 01/05/19 at 09:00 Zolpidem Tartrate (Ambien) 5 mg PRN QHS PRN PO INSOMNIA; Start 01/04/19 at 13:15 Ondansetron HCl (Zofran Odt) 4 mg PRN Q6HRS PRN PO NAUSEA; Start 01/04/19 at 13:15 Vitamin D (Vitamin D3) 1,000 unit DAILY PO Last administered on 01/05/19 08:48; Start 01/05/19 at 09:00 Albuterol Sulfate (Ventolin Neb Soln) 2.5 mg PRN Q4HRS PRN NEB WHEEZING; Start 01/04/19 at 13:15 Fentanyl (Duragesic 12mcg/ Hr Patch) 1 patch Q3DAYS TD Last administered on 01/04/19at 20:50; Start 01/04/19 at 19:00 Nitroglycerin (Nitrostat) 0.4 mg PRN Q5MIN PRN SL CHEST PAIN; Start 01/04/19 at 19:00; Stop 01/05/19 at 18:59 Cefepime HCl (Maxipime) 1 gm Q12HR IVP ; Start 01/04/19 at 21:00; Stop 01/04/19 at 20:40; Status DC Vancomycin HCl (Vanco Per Pharmacy) 1 each 1X PRN PRN MC SEE COMMENTS Last administered on 01/04/19at 21:25; Start 01/04/19 at 19:45; Stop 01/05/19 at 07:50; Status DC Vancomycin HCl 1.75 gm/Sodium Chloride 500 ml @ 250 mls/hr 1X ONCE IV ; Start 01/04/19 at 20:45; Stop 01/04/19 at 22:44; Status Cancel Cefepime HCl (Maxipime) 1 gm QHS IVP Last administered on 01/04/19at 23:17; Start 01/04/19 at 21:00; Stop 01/05/19 at 09:49; Status DC Vancomycin HCl 1.5 gm/Sodium Chloride 500 ml @ 250 mls/hr 1X ONCE IV Last administered on 01/04/19at 21:19; Start 01/04/19 at 21:00; Stop 01/04/19 at 22:59; Status DC Info (Anti-Coagulation Monitoring By Pharmacy) 1 each PRN DAILY PRN MC SEE COMMENTS Last administered on 01/05/19at 10:49; Start 01/04/19 at 21:30 Vancomycin HCl 1 gm/Sodium Chloride 250 ml @ 250 mls/hr Q48H IV ; Start 01/06/19 at 21:00; Stop 01/05/19 at 10:30; Status DC Vancomycin HCl (Vanco Per Pharmacy) 1 each PRN DAILY PRN MC SEE COMMENTS Last administered on 01/05/19at 10:41; Start 01/05/19 at 07:45 Cefepime HCl (Maxipime) 1 gm BID IVP ; Start 01/05/19 at 10:00 Vancomycin HCl 1 gm/Sodium Chloride 250 ml @ 250 mls/hr QHS IV ; Start 01/05/19 at 21:00 Vancomycin HCl (Vancomycin Trough Level) 1 each 1X ONCE MC ; Start 01/06/19 at 20:30; Stop 01/06/19 at 20:31 Active Scripts Active Prednisone 20 Mg Tablet 30 Mg PO DAILY 4 Days Aspirin Ec (Aspirin) 81 Mg Tablet.dr 81 Mg PO DAILYWBKFT Amox Tr-K Clv 875-125 Mg Tab (Amoxicillin/Potassium Clav) 1 Each Tablet 1 Tab PO BID Reported Senna (Sennosides) 8.6 Mg Tablet 8.6 Mg PO BID Zoloft (Sertraline Hcl) 100 Mg Tablet 100 Mg PO DAILY Amlodipine Besylate 5 Mg Tablet 5 Mg PO DAILY Coreg (Carvedilol) 25 Mg Tablet 25 Mg PO BID Lidocaine 1 Each Adh..patch 1 Each TP DAILY FENTANYL 12mcg/hr (Fentanyl) 1 Each Patch.td72 1 Patch TD Q72H Xanax (Alprazolam) 0.5 Mg Tablet 1 Tab PO BID Lyrica (Pregabalin) 75 Mg Capsule 75 Mg PO BID Omeprazole 20 Mg Capsule.dr 20 Mg PO BID Duoneb 0.5-3(2.5) Mg/3 Ml (Albuterol/Ipratropium) 3 Ml Ampul.neb 3 Ml NEB PRN Q4HRS PRN Ambien (Zolpidem Tartrate) 5 Mg Tablet 5 Mg PO PRN QHS PRN Hydrocodone-Apap 5-325 (Hydrocodone Bit/Acetaminophen) 1 Tab Tablet 1 Tab PO PRN Q8HRS PRN Vitamin D (Cholecalciferol (Vitamin D3)) 1,000 Unit Capsule 1 Cap PO DAILY Advair 250-50 Diskus (Fluticasone/Salmeterol) 1 Each Disk.w.dev 1 Puff IH BID Multi-Day Vitamins (Multivitamin) 1 Each Tablet 1 Tab PO DAILY Colace (Docusate Sodium) 100 Mg Capsule 100 Mg PO BID Vitals/I & O Vital Sign - Last 24 Hours 01/04/19 01/04/19 01/04/19 01/04/19 11:30 12:00 12:30 13:00 Pulse 80 82 80 86 Resp 16 17 17 16 B/P (MAP) 102/50 (67) 107/53 (71) 111/54 (73) 121/57 (78) Pulse Ox 98 98 98 95 O2 Delivery Nasal Cannula Nasal Cannula Nasal Cannula Nasal Cannula O2 Flow Rate 4.0 4.0 4.0 4.0 01/04/19 01/04/19 01/04/19 01/04/19 13:30 14:15 14:54 15:00 Temp 98.7 98.7 Pulse 84 75 Resp 17 18 B/P (MAP) 108/53 (71) 92/42 (59) Pulse Ox 95 98 99 O2 Delivery Nasal Cannula Nasal Cannula Nasal Cannula Nasal Cannula O2 Flow Rate 4.0 4.0 4.0 4.0 01/04/19 01/04/19 01/04/19 01/04/19 17:50 19:00 19:09 20:00 Temp 101.6 101.6 Pulse 75 100 Resp 16 B/P (MAP) 132/47 141/55 (83) Pulse Ox 95 99 O2 Delivery Nasal Cannula Nasal Cannula O2 Flow Rate 4.0 4.0 4.0 01/04/19 01/04/19 01/04/19 01/04/19 20:09 20:50 20:54 22:53 Temp 100.0 100.0 Pulse 77 Resp 16 B/P (MAP) 99/47 (64) Pulse Ox 99 99 98 94 O2 Delivery Nasal Cannula Nasal Cannula Nasal Cannula O2 Flow Rate 4.0 4.0 4.0 4.0 01/05/19 01/05/19 01/05/19 01/05/19 00:50 03:00 07:00 07:54 Temp 99.6 100.6 99.6 100.6 Pulse 100 94 Resp 22 22 B/P (MAP) 188/64 (105) 112/33 (59) Pulse Ox 94 95 O2 Delivery Nasal Cannula Nasal Cannula Nasal Cannula Nasal Cannula O2 Flow Rate 4.0 4.0 4.0 4.0 01/05/19 01/05/19 08:10 08:49 Pulse 98 B/P (MAP) 141/58 Pulse Ox 95 O2 Delivery Nasal Cannula O2 Flow Rate 4.0 Intake and Output 01/04/19 01/04/19 01/05/19 15:00 23:00 07:00 Intake Total 120 ml 1089 ml Output Total 550 ml 600 ml Balance -430 ml 489 ml KARAN KIMBLE MD Jan 05, 2019 11:06
[2019-01-05] MEDS ORDERED: MAGNESIUM SULFATE 2GM 50 ML IV ONE (11:15)
[2019-01-05] MEDS: CEFEPIME HCL IV Push 1 GM VIAL. IVP SCH ×2 (11:28→21:15)
[2019-01-05] MEDS: ENOXAPARIN 40 MG/0.4 ML SYRINGE. SQ SCH (11:29)
--- NOTE | 2019-01-05 13:17 | CONS ---
DATE OF CONSULTATION: 01/05/2019 CONSULTING PHYSICIAN: Dr. Castelan. HISTORY OF PRESENT ILLNESS: The patient is an elderly 88-year-old woman who comes into the hospital in the setting of worsening dyspnea. She has baseline exertional dyspnea and has been essentially bedbound due to spinal canal disease and significant lower extremity weakness. In this setting, she had to increase her oxygen levels because of worsening shortness of breath. Upon arrival to the ER, she was noted to have an elevated troponin of 2.2 with a BNP of greater than 6000. She was given intravenous Lasix and admitted for further evaluation and treatment. This morning, she reports that her breathing is improved. Her troponin peaked at about 3.1. She denies any current chest pain. Previously, she had made clear wishes regarding her wanting to be a do not resuscitate and continue conservative management. PAST MEDICAL HISTORY: 1. History of permanent pacemaker with sick sinus syndrome in 2018. 2. Diastolic heart failure and moderate mitral stenosis with an ejection fraction of 60% on echo in 12/2018. 3. COPD, on home oxygen therapy. 4. Hypertension. 5. Dyslipidemia. 6. History of chronic kidney disease. 7. Thrombocytopenia. 8. History of metabolic encephalopathy. CURRENT CARDIOVASCULAR MEDICATIONS: 1. Aspirin 81 mg daily. 2. Carvedilol 6.25 mg b.i.d. 3. Lovenox 40 mg q. 24 hours. She was initially started on heparin under the presumption that this was a non-ST elevation GA type 1, but over the last 24 hours given her improvement, this was felt to be mostly type 2. ALLERGIES: REVIEWED AND INCLUDE IODINATED CONTRAST, ATORVASTATIN, CLONIDINE, DOXAZOSIN, FLUVASTATIN, LISINOPRIL, LOVASTATIN, NIACIN, NIFEDIPINE, ROSUVASTATIN. REVIEW OF SYSTEMS: Negative unless otherwise mentioned above in HPI. PHYSICAL EXAMINATION: VITAL SIGNS: Afebrile, 93, 20, 105/46, 93% on 4 liters nasal cannula. GENERAL: She is sleepy, but arousable. HEAD AND NECK: Unremarkable. CARDIAC: Regular rate and rhythm without any clear murmurs identified. LUNGS: Notable for decreased breath sounds at the bases. ABDOMEN: Obese, protuberant, nontender, nondistended. EXTREMITIES: Reveal 1+ edema. NEUROLOGIC: She has weakness of the lower extremities, which is symmetric. DIAGNOSTIC STUDIES: Hemoglobin 9.6 and platelet count 101. Creatinine 1.0. Troponin of 3.03. Echocardiogram demonstrates normal LV systolic function with a [id number] mitral stenosis and moderate pulmonary hypertension. Chest x-ray demonstrates cardiomegaly and mild vascular congestion. IMPRESSION: 1. Dyspnea, likely a combination of chronic obstructive pulmonary disease and diastolic heart failure. 2. Non-ST elevation myocardial infarction type 2. 3. Hypertension. 4. Dyslipidemia. 5. Chronic debility. RECOMMENDATIONS: At this present time given the patient's significant debility, lack of any significant wall motion abnormalities and echocardiogram and lack of any anginal symptoms with an EKG that is a fairly benign, we will defer any further aggressive interventions. I agree with Dr. Castelan about discontinuation of heparin. Continue aspirin and carvedilol therapy. She has multiple allergies as noted and therefore does not qualify for lisinopril or statin therapy at this time. Could consider cardiac catheterization or CT angiography to rule out left main disease, although at this present time given the patient's chronically ill state, would not pursue any further aggressive measures. Thank you for this consultation. INDER WRIGHT MD DR: LITA/ben JOB#: [id number] / [id number]
[2019-01-05 15:00] VITALS: BP 109/45
[2019-01-05] MEDS: ALBUTEROL SULFATE 2.5 MG/3 ML NEBU. NEB PRN (15:53)
[2019-01-05 20:21] VITALS: BP 115/45
[2019-01-05] MEDS: HYDROcodone/APAP 5/325MG 1 TAB TABLET PO PRN (21:13)
[2019-01-05] MEDS: VANCOMYCIN 1 GM in IV NORMAL SALINE 250ML 250 ML IV SCH (21:15)
[2019-01-05 23:12] VITALS: BP 98/40
[2019-01-06] VITALS (7 sets, daily range): BP systolic 103–179; BP diastolic 45–77
[2019-01-06 05:01] LABS: BASO % 0 % (0-3); EOS % 1 % (0-3); HEMATOCRIT 30.8 % (36.0-47.0); HEMOGLOBIN 9.5 g/dL (12.0-15.5); LYMPH # 0.6 x10^3/uL (1.0-4.8); LYMPH % 7 % (24-48); MEAN CORPUSCULAR HEMOGLOBIN 24 pg (25-35); MEAN CORPUSCULAR HGB CONC 31 g/dL (31-37); MEAN CORPUSCULAR VOLUME 79 fL (79-100); MONO # 0.7 x10^3/uL (0.0-1.1); MONO % 9 % (0-9); NEUT % 83 % (31-73); PLATELET COUNT 112 x10^3/uL (140-400); RED CELL DISTRIBUTION WIDTH 17.5 % (11.5-14.5); WHITE BLOOD COUNT 8.5 x10^3/uL (4.0-11.0)
[2019-01-06 05:23] LABS: CALCIUM 8.6 mg/dL (8.5-10.1); CREATININE 0.9 mg/dL (0.6-1.0); GFR 59.2; MAGNESIUM 2.1 mg/dL (1.8-2.4); POTASSIUM 3.8 mmol/L (3.5-5.1)
[2019-01-06] MEDS: ALPRAZolam 0.5 MG TABLET PO SCH (07:56)
[2019-01-06] MEDS: CEFEPIME HCL IV Push 1 GM VIAL. IVP SCH ×2 (07:56→22:42)
[2019-01-06] MEDS: PANTOPRAZOLE 40 MG TABLET.DR. PO SCH (07:57)
[2019-01-06] MEDS: ASPIRIN CHEWABLE 81 MG TABLET. PO SCH (07:57)
[2019-01-06] MEDS: PREGABALIN 75 MG CAPSULE PO SCH (07:57)
[2019-01-06] MEDS: SERTRALINE 50 MG TABLET. PO SCH (07:57)
[2019-01-06] MEDS: CARVEDILOL 6.25 MG TABLET. PO SCH ×2 (07:57→18:26)
[2019-01-06] MEDS: HYDROXYCHLOROQUINE 200 MG TABLET PO SCH ×2 (07:57→21:21)
[2019-01-06] MEDS: CHOLECALCIFEROL (VITAMIN D3) 1,000 UNIT TABLET PO SCH (07:58)
[2019-01-06] MEDS: ONDANSETRON ODT 4 MG TAB.RAPDIS. PO PRN (07:59)
--- NOTE | 2019-01-06 09:39 | PDOC ---
Infectious Disease Note Subjective Subjective Resting quietly No fevers last 24 hours Remains on 4L o2 Vital Sign Vital Signs Vital Signs Date Time Temp Pulse Resp B/P (MAP) Pulse Ox O2 Delivery O2 Flow Rate FiO2 01/06/19 07:57 92 179/77 01/06/19 07:00 98.8 18 94 Nasal Cannula 4.0 98.8 Physical Exam PHYSICAL EXAM GENERAL: Asleep HEENT: Oral cavity had pink and moist. Dentures in place. NECK: Supple. LUNGS: Diminished aeration, nonlabored. HEART: S1 and S2 regular. Pacemaker. ABDOMEN: Obese, soft and nontender with bowel sounds present. GENITOURINARY: Gray in place. EXTREMITIES: No gross edema or cyanosis. SKIN: Warm to touch, no signs of rash. Labs Lab Laboratory Tests Test 01/06/19 04:30 01/06/19 08:02 White Blood Count 8.5 x10^3/uL (4.0-11.0) Red Blood Count 3.90 x10^6/uL (3.50-5.40) Hemoglobin 9.5 g/dL (12.0-15.5) Hematocrit 30.8 % (36.0-47.0) Mean Corpuscular Volume 79 fL (79-100) Mean Corpuscular Hemoglobin 24 pg (25-35) Mean Corpuscular Hemoglobin Concent 31 g/dL (31-37) Red Cell Distribution Width 17.5 % (11.5-14.5) Platelet Count 112 x10^3/uL (140-400) Neutrophils (%) (Auto) 83 % (31-73) Lymphocytes (%) (Auto) 7 % (24-48) Monocytes (%) (Auto) 9 % (0-9) Eosinophils (%) (Auto) 1 % (0-3) Basophils (%) (Auto) 0 % (0-3) Neutrophils # (Auto) 7.0 x10^3/uL (1.8-7.7) Lymphocytes # (Auto) 0.6 x10^3/uL (1.0-4.8) Monocytes # (Auto) 0.7 x10^3/uL (0.0-1.1) Eosinophils # (Auto) 0.0 x10^3/uL (0.0-0.7) Basophils # (Auto) 0.0 x10^3/uL (0.0-0.2) Sodium Level 138 mmol/L (136-145) Potassium Level 3.8 mmol/L (3.5-5.1) Chloride Level 99 mmol/L (98-107) Carbon Dioxide Level 33 mmol/L (21-32) Anion Gap 6 (6-14) Blood Urea Nitrogen 33 mg/dL (7-20) Creatinine 0.9 mg/dL (0.6-1.0) Estimated GFR (Cockcroft-Gault) 59.2 Glucose Level 120 mg/dL (70-99) Calcium Level 8.6 mg/dL (8.5-10.1) Magnesium Level 2.1 mg/dL (1.8-2.4) Glucose (Fingerstick) 113 mg/dL (70-99) Micro 01/04. BLOOD CULTURE Final GRAM POSITIVE COCCI IN CHAINS, SUGGESTIVE OF STREP, IN 2 OF 4 BOTTLES, ONE OF TWO SETS. Objective Assessment Bacteremia with GPC, POA 01/04 (2 of 4 bottles) Fever Questionable UTI, POA h/o MRSA Acute-on chronic respiratory failure. 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 The chart was reviewed. The case was discussed. Agree with the plan of care. RONNIE RANDHAWA APRN Jan 06, 2019 09:39 KRISTIN DARLING MD Jan 06, 2019 13:11
--- NOTE | 2019-01-06 10:23 | PDOC ---
PROGRESS NOTES Subjective Subjective sleeping. nurse notes she has been sleepy. eating poorly. lab reviewed. cxr report pending. Objective Objective Vital Signs Date Time Temp Pulse Resp B/P (MAP) Pulse Ox O2 Delivery O2 Flow Rate FiO2 01/06/19 08:01 Nasal Cannula 4.0 01/06/19 07:57 92 179/77 01/06/19 07:00 98.8 18 94 98.8 Intake and Output 01/06/19 07:00 Intake Total 820 ml Output Total 900 ml Balance -80 ml Intake Oral 570 ml IV Total 250 ml Output Urine Total 900 ml Physical Exam Abdomen: Soft Heart: Regular rate, Normal S1, Normal S2 Extremities: No edema General: Other (sleeping) HEENT: Atraumatic Lungs: Clear to auscultation Neuro: Other (sleeping) Psych/Mental Status: Other (sleeping) Skin: No rashes Assessment Assessment Problems1. Non-ST segment elevated myocardial infarction. 2. Acute on chronic diastolic congestive heart failure. clinically compensated 3. GPC bacteremia suggesting strep with sepsis. sepsis resolved 4. pyuria. urine culture pending 5. Hyperlipidemia with statin intolerance. 6. Acute kidney injury. due to dehydration resolved 7. Acute on chronic hypoxic respiratory failure. 8. Fibromyalgia. 9. Chronic pain. 10. Fever. resolved 11. Diarrhea. resolved 12. Anemia of chronic disease with some progression in the anemia. 13. Thrombocytopenia. stable 14. Chronic obstructive pulmonary disease. 15. Severe protein-calorie malnutrition. 16. Metabolic encephalopathy. diabetes mellitus type 2 with peripheral neuropathy hypertension moderate mitral stenosis per echo Medical Problems: (1) Acute and chronic respiratory failure Status: Acute (2) CHF exacerbation Status: Acute (3) Elevated troponin Status: Acute Plan Plan of Care d/c sertraline start hs mirtazepine for depression and to stimulate her appetite change xanax to bid prn continue iv vancomycin and cefepime continue oxygen and nebulizer rx await final blood and urine culture results Comment Review of Relevant I have reviewed the following items lizbeth (where applicable) has been applied. Labs Laboratory Tests Test 01/04/19 11:01 01/04/19 14:20 01/04/19 17:17 01/04/19 19:00 White Blood Count 8.4 x10^3/uL (4.0-11.0) Red Blood Count 4.01 x10^6/uL (3.50-5.40) Hemoglobin 9.7 g/dL (12.0-15.5) Hematocrit 31.5 % (36.0-47.0) Mean Corpuscular Volume 79 fL (79-100) Mean Corpuscular Hemoglobin 24 pg (25-35) Mean Corpuscular Hemoglobin Concent 31 g/dL (31-37) Red Cell Distribution Width 17.5 % (11.5-14.5) Platelet Count 117 x10^3/uL (140-400) Neutrophils (%) (Auto) 86 % (31-73) Lymphocytes (%) (Auto) 6 % (24-48) Monocytes (%) (Auto) 8 % (0-9) Eosinophils (%) (Auto) 0 % (0-3) Basophils (%) (Auto) 0 % (0-3) Neutrophils # (Auto) 7.2 x10^3/uL (1.8-7.7) Lymphocytes # (Auto) 0.5 x10^3/uL (1.0-4.8) Monocytes # (Auto) 0.7 x10^3/uL (0.0-1.1) Eosinophils # (Auto) 0.0 x10^3/uL (0.0-0.7) Basophils # (Auto) 0.0 x10^3/uL (0.0-0.2) Segmented Neutrophils % 85 % (35-66) Band Neutrophils % 9 % (0-9) Lymphocytes % 4 % (24-48) Monocytes % 2 % (0-10) Platelet Estimate Decreased (ADEQUATE) Basophilic Stippling Present Anisocytosis Slight Sodium Level 141 mmol/L (136-145) Potassium Level 4.3 mmol/L (3.5-5.1) Chloride Level 102 mmol/L (98-107) Carbon Dioxide Level 35 mmol/L (21-32) Anion Gap 4 (6-14) Blood Urea Nitrogen 25 mg/dL (7-20) Creatinine 1.4 mg/dL (0.6-1.0) Estimated GFR (Cockcroft-Gault) 35.6 BUN/Creatinine Ratio 18 (6-20) Glucose Level 126 mg/dL (70-99) Lactic Acid Level 1.0 mmol/L (0.4-2.0) Calcium Level 7.9 mg/dL (8.5-10.1) Total Bilirubin 0.4 mg/dL (0.2-1.0) Aspartate Amino Transf (AST/SGOT) 33 U/L (15-37) Alanine Aminotransferase (ALT/SGPT) 13 U/L (14-59) Alkaline Phosphatase 63 U/L (46-116) Troponin I Quantitative 2.224 ng/mL (0.000-0.055) 2.419 ng/mL (0.000-0.055) TB-Ybe-B-Type Natriuretic Peptide 6335 pg/mL (0-449) Total Protein 6.8 g/dL (6.4-8.2) Albumin 2.7 g/dL (3.4-5.0) Albumin/Globulin Ratio 0.7 (1.0-1.7) Glucose (Fingerstick) 112 mg/dL (70-99) Nasal Screen MRSA (PCR) Negative (Negative) Test 01/04/19 19:27 01/04/19 19:30 01/04/19 20:00 01/04/19 20:43 Urine Collection Type Unknown Urine Color Yellow Urine Clarity Clear Urine pH 5.5 Urine Specific [place] 1.015 Urine Protein 30 mg/dL (NEG-TRACE) Urine Glucose (UA) Negative mg/dL (NEG) Urine Ketones (Stick) Negative mg/dL (NEG) Urine Blood Large (NEG) Urine Nitrite Negative (NEG) Urine Bilirubin Negative (NEG) Urine Urobilinogen Dipstick 0.2 mg/dL (0.2 mg/dL) Urine Leukocyte Esterase Negative (NEG) Urine RBC Tntc /HPF (0-2) Urine WBC 5-10 /HPF (0-4) Urine Squamous Epithelial Cells Mod /LPF Urine Bacteria Moderate /HPF (0-FEW) Urine Yeast Present /HPF Influenza Type A Antigen Negative (NEGATIVE) Influenza Type B Antigen Negative (NEGATIVE) Heparin Anti-Xa Act, Unfractionated 0.43 IU/mL (0.30-0.70) Troponin I Quantitative 3.036 ng/mL (0.000-0.055) Glucose (Fingerstick) 137 mg/dL (70-99) Test 01/05/19 04:45 01/05/19 08:25 01/06/19 04:30 01/06/19 08:02 White Blood Count 8.0 x10^3/uL (4.0-11.0) 8.5 x10^3/uL (4.0-11.0) Red Blood Count 3.93 x10^6/uL (3.50-5.40) 3.90 x10^6/uL (3.50-5.40) Hemoglobin 9.6 g/dL (12.0-15.5) 9.5 g/dL (12.0-15.5) Hematocrit 30.9 % (36.0-47.0) 30.8 % (36.0-47.0) Mean Corpuscular Volume 79 fL (79-100) 79 fL (79-100) Mean Corpuscular Hemoglobin 24 pg (25-35) 24 pg (25-35) Mean Corpuscular Hemoglobin Concent 31 g/dL (31-37) 31 g/dL (31-37) Red Cell Distribution Width 17.6 % (11.5-14.5) 17.5 % (11.5-14.5) Platelet Count 101 x10^3/uL (140-400) 112 x10^3/uL (140-400) Neutrophils (%) (Auto) 86 % (31-73) 83 % (31-73) Lymphocytes (%) (Auto) 6 % (24-48) 7 % (24-48) Monocytes (%) (Auto) 7 % (0-9) 9 % (0-9) Eosinophils (%) (Auto) 0 % (0-3) 1 % (0-3) Basophils (%) (Auto) 0 % (0-3) 0 % (0-3) Neutrophils # (Auto) 7.0 x10^3/uL (1.8-7.7) 7.0 x10^3/uL (1.8-7.7) Lymphocytes # (Auto) 0.5 x10^3/uL (1.0-4.8) 0.6 x10^3/uL (1.0-4.8) Monocytes # (Auto) 0.6 x10^3/uL (0.0-1.1) 0.7 x10^3/uL (0.0-1.1) Eosinophils # (Auto) 0.0 x10^3/uL (0.0-0.7) 0.0 x10^3/uL (0.0-0.7) Basophils # (Auto) 0.0 x10^3/uL (0.0-0.2) 0.0 x10^3/uL (0.0-0.2) Heparin Anti-Xa Act, Unfractionated 0.26 IU/mL (0.30-0.70) Sodium Level 138 mmol/L (136-145) 138 mmol/L (136-145) Potassium Level 3.9 mmol/L (3.5-5.1) 3.8 mmol/L (3.5-5.1) Chloride Level 99 mmol/L (98-107) 99 mmol/L (98-107) Carbon Dioxide Level 34 mmol/L (21-32) 33 mmol/L (21-32) Anion Gap 5 (6-14) 6 (6-14) Blood Urea Nitrogen 26 mg/dL (7-20) 33 mg/dL (7-20) Creatinine 1.0 mg/dL (0.6-1.0) 0.9 mg/dL (0.6-1.0) Estimated GFR (Cockcroft-Gault) 52.4 59.2 BUN/Creatinine Ratio 26 (6-20) Glucose Level 129 mg/dL (70-99) 120 mg/dL (70-99) Calcium Level 7.9 mg/dL (8.5-10.1) 8.6 mg/dL (8.5-10.1) Magnesium Level 1.6 mg/dL (1.8-2.4) 2.1 mg/dL (1.8-2.4) Total Bilirubin 0.5 mg/dL (0.2-1.0) Aspartate Amino Transf (AST/SGOT) 73 U/L (15-37) Alanine Aminotransferase (ALT/SGPT) 14 U/L (14-59) Alkaline Phosphatase 59 U/L (46-116) Total Protein 6.8 g/dL (6.4-8.2) Albumin 2.6 g/dL (3.4-5.0) Albumin/Globulin Ratio 0.6 (1.0-1.7) Triglycerides Level 131 mg/dL (0-150) Cholesterol Level 168 mg/dL (0-200) LDL Cholesterol, Calculated 95 mg/dL (0-100) VLDL Cholesterol, Calculated 26 mg/dL (0-40) Non-HDL Cholesterol Calculated 121 mg/dL (0-129) HDL Cholesterol 47 mg/dL (40-60) Cholesterol/HDL Ratio 3.6 Glucose (Fingerstick) 119 mg/dL (70-99) 113 mg/dL (70-99) Laboratory Tests Test 01/06/19 04:30 01/06/19 08:02 White Blood Count 8.5 x10^3/uL (4.0-11.0) Red Blood Count 3.90 x10^6/uL (3.50-5.40) Hemoglobin 9.5 g/dL (12.0-15.5) Hematocrit 30.8 % (36.0-47.0) Mean Corpuscular Volume 79 fL (79-100) Mean Corpuscular Hemoglobin 24 pg (25-35) Mean Corpuscular Hemoglobin Concent 31 g/dL (31-37) Red Cell Distribution Width 17.5 % (11.5-14.5) Platelet Count 112 x10^3/uL (140-400) Neutrophils (%) (Auto) 83 % (31-73) Lymphocytes (%) (Auto) 7 % (24-48) Monocytes (%) (Auto) 9 % (0-9) Eosinophils (%) (Auto) 1 % (0-3) Basophils (%) (Auto) 0 % (0-3) Neutrophils # (Auto) 7.0 x10^3/uL (1.8-7.7) Lymphocytes # (Auto) 0.6 x10^3/uL (1.0-4.8) Monocytes # (Auto) 0.7 x10^3/uL (0.0-1.1) Eosinophils # (Auto) 0.0 x10^3/uL (0.0-0.7) Basophils # (Auto) 0.0 x10^3/uL (0.0-0.2) Sodium Level 138 mmol/L (136-145) Potassium Level 3.8 mmol/L (3.5-5.1) Chloride Level 99 mmol/L (98-107) Carbon Dioxide Level 33 mmol/L (21-32) Anion Gap 6 (6-14) Blood Urea Nitrogen 33 mg/dL (7-20) Creatinine 0.9 mg/dL (0.6-1.0) Estimated GFR (Cockcroft-Gault) 59.2 Glucose Level 120 mg/dL (70-99) Calcium Level 8.6 mg/dL (8.5-10.1) Magnesium Level 2.1 mg/dL (1.8-2.4) Glucose (Fingerstick) 113 mg/dL (70-99) Microbiology 01/04/19 Blood Culture - Preliminary, Resulted NO GROWTH AFTER 1 DAY Medications Current Medications Albuterol/ Ipratropium (Duoneb) 3 ml 1X ONCE NEB Last administered on 01/04/19at 10:45; Start 01/04/19 at 10:45; Stop 01/04/19 at 10:46; Status DC Furosemide (Lasix) 40 mg 1X ONCE IVP Last administered on 01/04/19at 11:07; Start 01/04/19 at 10:45; Stop 01/04/19 at 10:46; Status DC Heparin Sodium/ Dextrose 500 ml @ 16.3 mls/hr CONT PRN IV protocol Last administered on 01/04/19at 13:30; Start 01/04/19 at 11:45; Stop 01/05/19 at 11:04; Status DC Heparin Sodium (Porcine) (Heparin Sodium) 1,700 unit PRN Q6HRS PRN IV FOR UFH LEVEL LESS THAN 0.2; Start 01/04/19 at 11:45; Stop 01/05/19 at 11:04; Status DC Ondansetron HCl (Zofran) 4 mg PRN Q8HRS PRN IV NAUSEA/VOMITING; Start 01/04/19 at 11:45; Stop 01/05/19 at 11:44; Status DC Acetaminophen (Tylenol) 650 mg PRN Q4HRS PRN PO FEVER; Start 01/04/19 at 11:45; Stop 01/05/19 at 11:44; Status DC Nitroglycerin (Nitrostat) 0.4 mg PRN Q5MIN PRN SL CHEST PAIN; Start 01/04/19 at 11:45; Stop 01/04/19 at 18:59; Status DC Albuterol/ Ipratropium (Duoneb) 3 ml RTQID NEB Last administered on 01/05/19at 11:43; Start 01/04/19 at 12:00; Stop 01/05/19 at 11:59; Status DC Heparin Sodium (Porcine) (Heparin Sodium) 4,000 unit 1X ONCE IV Last administered on 01/04/19 13:28; Start 01/04/19 at 13:30; Stop 01/04/19 at 13:31; Status DC Carvedilol (Coreg) 6.25 mg BIDWMEALS PO Last administered on 01/06/19 07:57; Start 01/04/19 at 17:00 Aspirin (Ede Aspirin) 325 mg 1X ONCE PO Last administered on 01/04/19at 15:17; Start 01/04/19 at 13:15; Stop 01/04/19 at 13:47; Status DC Aspirin (Children'S Aspirin) 81 mg DAILYWBKFT PO Last administered on 01/06/19 07:57; Start 01/05/19 at 08:00 Alprazolam (Xanax) 0.5 mg BID PO Last administered on 01/06/19 07:56; Start 01/04/19 at 21:00 Fentanyl (Duragesic 12mcg/ Hr Patch) 1 patch Q3DAYS TD ; Start 01/05/19 at 09:00; Stop 01/04/19 at 18:59; Status DC Pregabalin (Lyrica) 75 mg BID PO Last administered on 01/06/19 07:57; Start 01/04/19 at 21:00 Acetaminophen/ Hydrocodone Bitart (Lortab 5/325) 1 tab PRN BID PRN PO PAIN Last administered on 01/05/19at 21:13; Start 01/04/19 at 13:15 Pantoprazole Sodium (Protonix) 40 mg DAILY PO Last administered on 01/06/19 07:57; Start 01/05/19 at 09:00 Hydroxychloroquine Sulfate (Plaquenil) 200 mg BID PO Last administered on 01/06/19 07:57; Start 01/04/19 at 21:00 Sertraline HCl (Zoloft) 100 mg DAILY PO Last administered on 01/06/19 07:57; Start 01/05/19 at 09:00 Zolpidem Tartrate (Ambien) 5 mg PRN QHS PRN PO INSOMNIA; Start 01/04/19 at 13:15 Ondansetron HCl (Zofran Odt) 4 mg PRN Q6HRS PRN PO NAUSEA Last administered on 01/06/19 07:59; Start 01/04/19 at 13:15 Vitamin D (Vitamin D3) 1,000 unit DAILY PO Last administered on 01/06/19 07:58; Start 01/05/19 at 09:00 Albuterol Sulfate (Ventolin Neb Soln) 2.5 mg PRN Q4HRS PRN NEB WHEEZING Last administered on 01/05/19at 15:53; Start 01/04/19 at 13:15 Fentanyl (Duragesic 12mcg/ Hr Patch) 1 patch Q3DAYS TD Last administered on 01/04/19at 20:50; Start 01/04/19 at 19:00 Nitroglycerin (Nitrostat) 0.4 mg PRN Q5MIN PRN SL CHEST PAIN; Start 01/04/19 at 19:00; Stop 01/05/19 at 18:59; Status DC Cefepime HCl (Maxipime) 1 gm Q12HR IVP ; Start 01/04/19 at 21:00; Stop at 20:40; Status DC Vancomycin HCl (Vanco Per Pharmacy) 1 each 1X PRN PRN MC SEE COMMENTS Last administered on 01/04/19at 21:25; Start 01/04/19 at 19:45; Stop 01/05/19 at 07:50; Status DC Vancomycin HCl 1.75 gm/Sodium Chloride 500 ml @ 250 mls/hr 1X ONCE IV ; Start 01/04/19 at 20:45; Stop 01/04/19 at 22:44; Status Cancel Cefepime HCl (Maxipime) 1 gm QHS IVP Last administered on 01/04/19at 23:17; Start 01/04/19 at 21:00; Stop 01/05/19 at 09:49; Status DC Vancomycin HCl 1.5 gm/Sodium Chloride 500 ml @ 250 mls/hr 1X ONCE IV Last administered on 01/04/19at 21:19; Start 01/04/19 at 21:00; Stop 01/04/19 at 22:59; Status DC Info (Anti-Coagulation Monitoring By Pharmacy) 1 each PRN DAILY PRN MC SEE COMMENTS Last administered on 01/05/19at 10:49; Start 01/04/19 at 21:30 Vancomycin HCl 1 gm/Sodium Chloride 250 ml @ 250 mls/hr Q48H IV ; Start 01/06/19 at 21:00; Stop 01/05/19 at 10:30; Status DC Vancomycin HCl (Vanco Per Pharmacy) 1 each PRN DAILY PRN MC SEE COMMENTS Last administered on 01/05/19at 10:41; Start 01/05/19 at 07:45 Cefepime HCl (Maxipime) 1 gm BID IVP Last administered on 01/06/19at 07:56; Start 01/05/19 at 10:00 Vancomycin HCl 1 gm/Sodium Chloride 250 ml @ 250 mls/hr QHS IV Last administered on 01/05/19at 21:15; Start 01/05/19 at 21:00 Vancomycin HCl (Vancomycin Trough Level) 1 each 1X ONCE MC ; Start 01/06/19 at 20:30; Stop 01/06/19 at 20:31 Enoxaparin Sodium (Lovenox 40mg Syringe) 40 mg Q24H SQ Last administered on 01/05/19at 11:29; Start 01/05/19 at 12:00 Magnesium Sulfate 50 ml @ 25 mls/hr 1X ONCE IV Last administered on 01/05/19at 12:32; Start 01/05/19 at 11:15; Stop 01/05/19 at 13:14; Status DC Active Scripts Active Prednisone 20 Mg Tablet 30 Mg PO DAILY 4 Days Aspirin Ec (Aspirin) 81 Mg Tablet.dr 81 Mg PO DAILYWBKFT Amox Tr-K Clv 875-125 Mg Tab (Amoxicillin/Potassium Clav) 1 Each Tablet 1 Tab PO BID Reported Senna (Sennosides) 8.6 Mg Tablet 8.6 Mg PO BID Zoloft (Sertraline Hcl) 100 Mg Tablet 100 Mg PO DAILY Amlodipine Besylate 5 Mg Tablet 5 Mg PO DAILY Coreg (Carvedilol) 25 Mg Tablet 25 Mg PO BID Lidocaine 1 Each Adh..patch 1 Each TP DAILY FENTANYL 12mcg/hr (Fentanyl) 1 Each Patch.td72 1 Patch TD Q72H Xanax (Alprazolam) 0.5 Mg Tablet 1 Tab PO BID Lyrica (Pregabalin) 75 Mg Capsule 75 Mg PO BID Omeprazole 20 Mg Capsule.dr 20 Mg PO BID Duoneb 0.5-3(2.5) Mg/3 Ml (Albuterol/Ipratropium) 3 Ml Ampul.neb 3 Ml NEB PRN Q4HRS PRN Ambien (Zolpidem Tartrate) 5 Mg Tablet 5 Mg PO PRN QHS PRN Hydrocodone-Apap 5-325 (Hydrocodone Bit/Acetaminophen) 1 Tab Tablet 1 Tab PO PRN Q8HRS PRN Vitamin D (Cholecalciferol (Vitamin D3)) 1,000 Unit Capsule 1 Cap PO DAILY Advair 250-50 Diskus (Fluticasone/Salmeterol) 1 Each Disk.w.dev 1 Puff IH BID Multi-Day Vitamins (Multivitamin) 1 Each Tablet 1 Tab PO DAILY Colace (Docusate Sodium) 100 Mg Capsule 100 Mg PO BID Vitals/I & O Vital Sign - Last 24 Hours 01/05/19 01/05/19 01/05/19 01/05/19 11:00 11:50 15:00 15:57 Temp 99.4 99.4 99.4 99.4 Pulse 93 90 Resp 20 18 B/P (MAP) 105/46 (65) 109/45 (66) Pulse Ox 93 93 O2 Delivery Nasal Cannula Nasal Cannula Nasal Cannula Nasal Cannula O2 Flow Rate 4.0 4.0 4.0 4.0 01/05/19 01/05/19 01/05/19 01/05/19 17:43 20:00 20:21 21:13 Temp 99.8 99.8 Pulse 81 74 Resp 16 B/P (MAP) 130/56 115/45 (68) Pulse Ox 96 96 O2 Delivery Nasal Cannula Nasal Cannula Nasal Cannula O2 Flow Rate 4.0 4.0 4.0 01/05/19 01/05/19 01/06/19 01/06/19 22:13 23:12 03:00 07:00 Temp 98.3 98.4 98.8 98.3 98.4 98.8 Pulse 78 87 88 Resp 16 18 18 B/P (MAP) 98/40 (59) 131/53 (79) 179/77 (111) Pulse Ox 94 95 94 O2 Delivery Nasal Cannula Nasal Cannula Nasal Cannula Nasal Cannula O2 Flow Rate 4.0 4.0 4.0 4.0 01/06/19 01/06/19 07:57 08:01 Pulse 92 B/P (MAP) 179/77 O2 Delivery Nasal Cannula O2 Flow Rate 4.0 Intake and Output 1101/05/19 01/06/19 15:00 23:00 07:00 Intake Total 170 ml 550 ml 100 ml Output Total 150 ml 200 ml 550 ml Balance 20 ml 350 ml -450 ml KARAN KIMBLE MD Jan 06, 2019 10:23
[2019-01-06] MEDS ORDERED: ALPRAZolam 0.5 MG TABLET PO PRN (10:30)
--- NOTE | 2019-01-06 10:38 | RAD ---
CHEST AP ONLY History: Fever, CHF Comparison: January 04, 2019 Findings: Single view of the chest is submitted. There is again dual lead left electronic cardiac device. Pericardial cardiac silhouette is somewhat enlarged although unchanged. There is atherosclerotic calcification near aortic arch. There is somewhat increased right perihilar and right base airspace opacity. There is persistent interstitial opacity greater on the left. There is no significant dependent pleural fluid. Impression: 1. There is somewhat increased right perihilar and right lung base airspace opacity which may be infectious infiltrate. There is again degree of interstitial opacity which could be due to interstitial edema or infiltrate. Electronically signed by: Manuel Schroeder MD (01/06/2019 10:35 AM) [facility] [place]
[2019-01-06] MEDS ORDERED: PREGABALIN 75 MG CAPSULE PO SCH (11:00)
[2019-01-06] MEDS: ENOXAPARIN 40 MG/0.4 ML SYRINGE. SQ SCH (11:27)
[2019-01-06] MEDS: VANCOMYCIN PER PHARMACY MC PRN ×3 (12:02→23:25)
[2019-01-06] MEDS ORDERED: MIRTAZAPINE 15 MG TABLET PO SCH (21:00)
[2019-01-06] MEDS ORDERED: VANCOMYCIN 1 GM in IV NORMAL SALINE 250ML 250 ML IV SCH (21:00)
[2019-01-06] MEDS: VANCOMYCIN 1 GM in IV NORMAL SALINE 250ML 250 ML IV SCH (21:00)
[2019-01-06] MEDS: PREGABALIN 50 MG CAPSULE PO SCH (21:21)
[2019-01-06] MEDS: HYDROcodone/APAP 5/325MG 1 TAB TABLET PO PRN (21:21)
[2019-01-06 21:38] LABS: VANC TR 8.1 mcg/mL (10.0-20.0)
[2019-01-06] MEDS: VANCOMYCIN 1.25 GM in IV NORMAL SALINE 250ML 250 ML IV SCH (23:01)
--- NOTE | 2019-01-06 23:27 | NUR ---
Pharmacy Vancomycin Dosing Note S: Consulted to monitor and dose vancomycin started 01/04/19. O: SYBIL AUGUSTINE is a 88 year old F with Bacteremia Empiric UTI, . Other Antibiotics: CEFEPIME 1GM IV BID LABS: Last BUN: 33 Last Creatinine: 0.9 Creatinine Clearance: 36.8 mL/min Last WBC: 8.5 Last Procalcitonin: Tmax (past 24 hours): 99.8 Microbiology: I/O: 820/900 Drug Levels: Last Trough level: 8.1 on 01/06/19 at 2030 Last dose given 01/05/19 at 2100 Vancomycin Dosing: Dosing Weight: Actual Target Trough: 15-20 A: Based on: Trough, Updated Actual Wt and CrCl P: 1. 01/06/19 2300 Increase Vancomycin 1250 mg IV q24h 2. Follow up Trough level on 01/08/19 at 2230 3. Pharmacy will continue to monitor, follow and adjust therapy as needed. CHRIS TORRES RPH, 01/06/19 2327 Signed: 01/06/19 at 2328 by CHRIS TORRES RPH PHA
[2019-01-07 02:01] VITALS: BP 143/57
[2019-01-07 07:09] LABS: BASO % 0 % (0-3); EOS # 0.1 x10^3/uL (0.0-0.7); EOS % 1 % (0-3); HEMATOCRIT 32.2 % (36.0-47.0); HEMOGLOBIN 9.9 g/dL (12.0-15.5); LYMPH # 0.9 x10^3/uL (1.0-4.8); LYMPH % 11 % (24-48); MEAN CORPUSCULAR HEMOGLOBIN 24 pg (25-35); MEAN CORPUSCULAR HGB CONC 31 g/dL (31-37); MEAN CORPUSCULAR VOLUME 79 fL (79-100); MONO # 0.8 x10^3/uL (0.0-1.1); MONO % 10 % (0-9); NEUT # 6.5 x10^3/uL (1.8-7.7); NEUT % 78 % (31-73); PLATELET COUNT 116 x10^3/uL (140-400); RED CELL DISTRIBUTION WIDTH 17.2 % (11.5-14.5); WHITE BLOOD COUNT 8.3 x10^3/uL (4.0-11.0)
[2019-01-07 07:20] VITALS: BP 156/54
[2019-01-07 08:02] LABS: CALCIUM 8.5 mg/dL (8.5-10.1); CREATININE 0.8 mg/dL (0.6-1.0); GFR 67.8; POTASSIUM 4.1 mmol/L (3.5-5.1)
[2019-01-07] MEDS: ASPIRIN CHEWABLE 81 MG TABLET. PO SCH (08:57)
[2019-01-07] MEDS: CARVEDILOL 6.25 MG TABLET. PO SCH ×2 (08:57→16:29)
[2019-01-07] MEDS: HYDROXYCHLOROQUINE 200 MG TABLET PO SCH ×2 (08:57→22:23)
[2019-01-07] MEDS: CHOLECALCIFEROL (VITAMIN D3) 1,000 UNIT TABLET PO SCH (08:58)
[2019-01-07] MEDS: PREGABALIN 50 MG CAPSULE PO SCH ×2 (08:58→22:22)
[2019-01-07] MEDS: PANTOPRAZOLE 40 MG TABLET.DR. PO SCH (08:58)
[2019-01-07] MEDS: CEFEPIME HCL IV Push 1 GM VIAL. IVP SCH ×2 (09:04→22:21)
[2019-01-07] MEDS: fentaNYL 12MCG/HR PATCH 1 PATCH PATCH.TD72 TD SCH (09:06)
--- NOTE | 2019-01-07 09:26 | NUR ---
IP: Pt has had a hx of mrsa since 2007 with most current a + mrsa screen on 03/13/18. Pt to be in contact precautions until there are 2 negative screens 7 days apart.
--- NOTE | 2019-01-07 10:07 | PDOC ---
Infectious Disease Note Subjective: Subjective Resting quietly No fevers last 24 hours has chills denies any n/v/d/abdo pain has weakness Vital Signs: Vital Signs Vital Signs Date Time Temp Pulse Resp B/P (MAP) Pulse Ox O2 Delivery O2 Flow Rate FiO2 01/07/19 09:06 12 99 Nasal Cannula 3.0 01/07/19 08:57 82 156/54 01/07/19 07:20 98.9 98.9 Physical Exam: PHYSICAL EXAM GENERAL: Asleep HEENT: Oral cavity had pink and moist. Dentures in place. NECK: Supple. LUNGS: Diminished aeration, nonlabored. HEART: S1 and S2 regular. Pacemaker. ABDOMEN: Obese, soft and nontender with bowel sounds present. GENITOURINARY: Gray in place. EXTREMITIES: No gross edema or cyanosis. SKIN: Warm to touch, no signs of rash. Medications: Inpatient Meds: Current Medications Medications (Trade) Dose Ordered Sig/Lindsey Start Time Stop Time Status Last Admin Dose Admin Acetaminophen (Tylenol) 650 mg PRN Q4HRS PRN 01/04/19 11:45 01/05/19 11:44 DC Acetaminophen/ Hydrocodone Bitart (Lortab 5/325) 1 tab PRN BID PRN 01/04/19 13:15 01/06/19 21:21 1 TAB Albuterol Sulfate (Ventolin Neb Soln) 2.5 mg PRN Q4HRS PRN 01/04/19 13:15 01/05/19 15:53 2.5 MG Albuterol/ Ipratropium (Duoneb) 3 ml RTQID 01/04/19 12:00 01/05/19 11:59 DC 01/05/19 11:43 3 ML Alprazolam (Xanax) 0.25 mg PRN BID PRN 01/06/19 10:30 Aspirin (Ede Aspirin) 325 mg 1X ONCE 01/04/19 13:15 01/04/19 13:47 DC 01/04/19 15:17 325 MG Aspirin (Children'S Aspirin) 81 mg DAILYWBKFT 01/05/19 08:00 01/07/19 08:57 81 MG Carvedilol (Coreg) 6.25 mg BIDWMEALS 01/04/19 17:00 01/07/19 08:57 6.25 MG Cefepime HCl (Maxipime) 1 gm BID 01/05/19 10:00 01/07/19 09:04 1 GM Enoxaparin Sodium (Lovenox 40mg Syringe) 40 mg Q24H 01/05/19 12:00 01/06/19 11:27 40 MG Fentanyl (Duragesic 12mcg/ Hr Patch) 1 patch Q3DAYS 01/04/19 19:00 01/07/19 09:06 1 PATCH Furosemide (Lasix) 40 mg 1X ONCE 01/04/19 10:45 01/04/19 10:46 DC 01/04/19 11:07 40 MG Heparin Sodium (Porcine) (Heparin Sodium) 4,000 unit 1X ONCE 01/04/19 13:30 01/04/19 13:31 DC 01/04/19 13:28 4,000 UNIT Heparin Sodium/ Dextrose 500 ml @ 16.3 mls/hr CONT PRN 01/04/19 11:45 01/05/19 11:04 DC 01/04/19 13:30 16.3 MLS/HR Hydroxychloroquine Sulfate (Plaquenil) 200 mg BID 01/04/19 21:00 01/07/19 08:57 200 MG Info (Anti-Coagulation Monitoring By Pharmacy) 1 each PRN DAILY PRN 01/04/19 21:30 01/05/19 10:49 1 EACH Magnesium Sulfate 50 ml @ 25 mls/hr 1X ONCE 01/05/19 11:15 01/05/19 13:14 DC 01/05/19 12:32 25 MLS/HR Mirtazapine (Remeron) 15 mg QHS 01/06/19 21:00 01/06/19 21:21 15 MG Nitroglycerin (Nitrostat) 0.4 mg PRN Q5MIN PRN 01/04/19 19:00 01/05/19 18:59 DC Ondansetron HCl (Zofran Odt) 4 mg PRN Q6HRS PRN 01/04/19 13:15 01/06/19 07:59 4 MG Ondansetron HCl (Zofran) 4 mg PRN Q8HRS PRN 01/04/19 11:45 01/05/19 11:44 DC Pantoprazole Sodium (Protonix) 40 mg DAILY 01/05/19 09:00 01/07/19 08:58 40 MG Pregabalin (Lyrica) 50 mg BID 01/06/19 21:00 01/07/19 08:58 50 MG Sertraline HCl (Zoloft) 100 mg DAILY 01/05/19 09:00 01/06/19 10:19 DC 01/06/19 07:57 100 MG Vancomycin HCl (Vanco Per Pharmacy) 1 each PRN DAILY PRN 01/05/19 07:45 01/06/19 23:25 1 EACH Vancomycin HCl (Vancomycin Trough Level) 1 each 1X ONCE 01/08/19 22:30 01/08/19 22:31 Vancomycin HCl 1.25 gm/Sodium Chloride 250 ml @ 167 mls/hr Q24H 01/06/19 23:00 01/06/19 23:01 167 MLS/HR Vancomycin HCl 1.5 gm/Sodium Chloride 500 ml @ 250 mls/hr 1X ONCE 01/04/19 21:00 01/04/19 22:59 DC 01/04/19 21:19 250 MLS/HR Vancomycin HCl 1.75 gm/Sodium Chloride 500 ml @ 250 mls/hr 1X ONCE 01/04/19 20:45 01/04/19 22:44 Cancel Vancomycin HCl 1 gm/Sodium Chloride 250 ml @ 250 mls/hr QHS 01/05/19 21:00 01/06/19 22:44 DC 01/05/19 21:15 250 MLS/HR Vitamin D (Vitamin D3) 1,000 unit DAILY 01/05/19 09:00 01/07/19 08:58 1,000 UNIT Zolpidem Tartrate (Ambien) 5 mg PRN QHS PRN 01/04/19 13:15 Labs: Lab Laboratory Tests Test 01/06/19 21:18 01/07/19 05:50 01/07/19 07:22 Vancomycin Level Trough 8.1 mcg/mL (10.0-20.0) Vancomycin Last Dose Date 01/05/19 Vancomycin Last Dose Time 2100 White Blood Count 8.3 x10^3/uL (4.0-11.0) Red Blood Count 4.10 x10^6/uL (3.50-5.40) Hemoglobin 9.9 g/dL (12.0-15.5) Hematocrit 32.2 % (36.0-47.0) Mean Corpuscular Volume 79 fL (79-100) Mean Corpuscular Hemoglobin 24 pg (25-35) Mean Corpuscular Hemoglobin Concent 31 g/dL (31-37) Red Cell Distribution Width 17.2 % (11.5-14.5) Platelet Count 116 x10^3/uL (140-400) Neutrophils (%) (Auto) 78 % (31-73) Lymphocytes (%) (Auto) 11 % (24-48) Monocytes (%) (Auto) 10 % (0-9) Eosinophils (%) (Auto) 1 % (0-3) Basophils (%) (Auto) 0 % (0-3) Neutrophils # (Auto) 6.5 x10^3/uL (1.8-7.7) Lymphocytes # (Auto) 0.9 x10^3/uL (1.0-4.8) Monocytes # (Auto) 0.8 x10^3/uL (0.0-1.1) Eosinophils # (Auto) 0.1 x10^3/uL (0.0-0.7) Basophils # (Auto) 0.0 x10^3/uL (0.0-0.2) Sodium Level 140 mmol/L (136-145) Potassium Level 4.1 mmol/L (3.5-5.1) Chloride Level 100 mmol/L (98-107) Carbon Dioxide Level 33 mmol/L (21-32) Anion Gap 7 (6-14) Blood Urea Nitrogen 33 mg/dL (7-20) Creatinine 0.8 mg/dL (0.6-1.0) Estimated GFR (Cockcroft-Gault) 67.8 Glucose Level 82 mg/dL (70-99) Calcium Level 8.5 mg/dL (8.5-10.1) Glucose (Fingerstick) 86 mg/dL (70-99) Objective: Assessment: Bacteremia with GPC, POA 01/04 (2 of 4 bottles) Fever Questionable UTI, POA h/o MRSA Acute-on chronic respiratory failure. 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
--- NOTE | 2019-01-07 10:26 | PDOC ---
PROGRESS NOTES Subjective Subjective she is alert and talking but confused. discussed with son at bedside. lab reviewed. cxr showed increased right perihilar and RLL lung infiltrate . discussed with dr. Hernandez. Objective Objective Vital Signs Date Time Temp Pulse Resp B/P (MAP) Pulse Ox O2 Delivery O2 Flow Rate FiO2 01/07/19 09:06 12 99 Nasal Cannula 3.0 01/07/19 08:57 82 156/54 01/07/19 07:20 98.9 98.9 Intake and Output 01/07/19 07:00 Intake Total 650 ml Output Total 675 ml Balance -25 ml Intake Oral 400 ml IV Total 250 ml Output Urine Total 675 ml # Bowel Movements 1 Physical Exam Abdomen: Soft Heart: Regular rate, Normal S1, Normal S2 Extremities: No edema General: Alert HEENT: Atraumatic Lungs: Other (takes poor deep breaths so decreased breath sounds bilaterally) Neuro: Other (confused) Psych/Mental Status: Other (confused) Skin: No rashes Assessment Assessment Problems1. Non-ST segment elevated myocardial infarction. 2. Acute on chronic diastolic congestive heart failure. clinically compensated 3. GPC bacteremia suggesting strep with sepsis. sepsis resolved 4. pyuria. urine culture pending 5. Hyperlipidemia with statin intolerance. 6. Acute kidney injury. due to dehydration resolved 7. Acute on chronic hypoxic respiratory failure. 8. Fibromyalgia. 9. Chronic pain. 10. Fever. resolved 11. Diarrhea. resolved 12. Anemia of chronic disease with some progression in the anemia. 13. Thrombocytopenia. stable 14. Chronic obstructive pulmonary disease. 15. Severe protein-calorie malnutrition. 16. Metabolic encephalopathy. diabetes mellitus type 2 with peripheral neuropathy hypertension moderate mitral stenosis per echo Medical Problems: (1) Acute and chronic respiratory failure Status: Acute (2) CHF exacerbation Status: Acute (3) Elevated troponin Status: Acute Plan Plan of Care continue iv vancomycin and cefepime await blood and urine culture results decrease hs mirtazepine d/c prn xanax Comment Review of Relevant I have reviewed the following items lizbeth (where applicable) has been applied. Labs Laboratory Tests Test 01/06/19 04:30 01/06/19 08:02 01/06/19 21:18 01/07/19 05:50 White Blood Count 8.5 x10^3/uL (4.0-11.0) 8.3 x10^3/uL (4.0-11.0) Red Blood Count 3.90 x10^6/uL (3.50-5.40) 4.10 x10^6/uL (3.50-5.40) Hemoglobin 9.5 g/dL (12.0-15.5) 9.9 g/dL (12.0-15.5) Hematocrit 30.8 % (36.0-47.0) 32.2 % (36.0-47.0) Mean Corpuscular Volume 79 fL (79-100) 79 fL (79-100) Mean Corpuscular Hemoglobin 24 pg (25-35) 24 pg (25-35) Mean Corpuscular Hemoglobin Concent 31 g/dL (31-37) 31 g/dL (31-37) Red Cell Distribution Width 17.5 % (11.5-14.5) 17.2 % (11.5-14.5) Platelet Count 112 x10^3/uL (140-400) 116 x10^3/uL (140-400) Neutrophils (%) (Auto) 83 % (31-73) 78 % (31-73) Lymphocytes (%) (Auto) 7 % (24-48) 11 % (24-48) Monocytes (%) (Auto) 9 % (0-9) 10 % (0-9) Eosinophils (%) (Auto) 1 % (0-3) 1 % (0-3) Basophils (%) (Auto) 0 % (0-3) 0 % (0-3) Neutrophils # (Auto) 7.0 x10^3/uL (1.8-7.7) 6.5 x10^3/uL (1.8-7.7) Lymphocytes # (Auto) 0.6 x10^3/uL (1.0-4.8) 0.9 x10^3/uL (1.0-4.8) Monocytes # (Auto) 0.7 x10^3/uL (0.0-1.1) 0.8 x10^3/uL (0.0-1.1) Eosinophils # (Auto) 0.0 x10^3/uL (0.0-0.7) 0.1 x10^3/uL (0.0-0.7) Basophils # (Auto) 0.0 x10^3/uL (0.0-0.2) 0.0 x10^3/uL (0.0-0.2) Sodium Level 138 mmol/L (136-145) 140 mmol/L (136-145) Potassium Level 3.8 mmol/L (3.5-5.1) 4.1 mmol/L (3.5-5.1) Chloride Level 99 mmol/L (98-107) 100 mmol/L (98-107) Carbon Dioxide Level 33 mmol/L (21-32) 33 mmol/L (21-32) Anion Gap 6 (6-14) 7 (6-14) Blood Urea Nitrogen 33 mg/dL (7-20) 33 mg/dL (7-20) Creatinine 0.9 mg/dL (0.6-1.0) 0.8 mg/dL (0.6-1.0) Estimated GFR (Cockcroft-Gault) 59.2 67.8 Glucose Level 120 mg/dL (70-99) 82 mg/dL (70-99) Calcium Level 8.6 mg/dL (8.5-10.1) 8.5 mg/dL (8.5-10.1) Magnesium Level 2.1 mg/dL (1.8-2.4) Glucose (Fingerstick) 113 mg/dL (70-99) Vancomycin Level Trough 8.1 mcg/mL (10.0-20.0) Vancomycin Last Dose Date 01/05/19 Vancomycin Last Dose Time 2100 Test 01/07/19 07:22 Glucose (Fingerstick) 86 mg/dL (70-99) Laboratory Tests Test 01/06/19 21:18 01/07/19 05:50 01/07/19 07:22 Vancomycin Level Trough 8.1 mcg/mL (10.0-20.0) Vancomycin Last Dose Date 01/05/19 Vancomycin Last Dose Time 2100 White Blood Count 8.3 x10^3/uL (4.0-11.0) Red Blood Count 4.10 x10^6/uL (3.50-5.40) Hemoglobin 9.9 g/dL (12.0-15.5) Hematocrit 32.2 % (36.0-47.0) Mean Corpuscular Volume 79 fL (79-100) Mean Corpuscular Hemoglobin 24 pg (25-35) Mean Corpuscular Hemoglobin Concent 31 g/dL (31-37) Red Cell Distribution Width 17.2 % (11.5-14.5) Platelet Count 116 x10^3/uL (140-400) Neutrophils (%) (Auto) 78 % (31-73) Lymphocytes (%) (Auto) 11 % (24-48) Monocytes (%) (Auto) 10 % (0-9) Eosinophils (%) (Auto) 1 % (0-3) Basophils (%) (Auto) 0 % (0-3) Neutrophils # (Auto) 6.5 x10^3/uL (1.8-7.7) Lymphocytes # (Auto) 0.9 x10^3/uL (1.0-4.8) Monocytes # (Auto) 0.8 x10^3/uL (0.0-1.1) Eosinophils # (Auto) 0.1 x10^3/uL (0.0-0.7) Basophils # (Auto) 0.0 x10^3/uL (0.0-0.2) Sodium Level 140 mmol/L (136-145) Potassium Level 4.1 mmol/L (3.5-5.1) Chloride Level 100 mmol/L (98-107) Carbon Dioxide Level 33 mmol/L (21-32) Anion Gap 7 (6-14) Blood Urea Nitrogen 33 mg/dL (7-20) Creatinine 0.8 mg/dL (0.6-1.0) Estimated GFR (Cockcroft-Gault) 67.8 Glucose Level 82 mg/dL (70-99) Calcium Level 8.5 mg/dL (8.5-10.1) Glucose (Fingerstick) 86 mg/dL (70-99) Microbiology 01/04/19 Blood Culture - Preliminary, Resulted NO GROWTH AFTER 2 DAYS Medications Current Medications Albuterol/ Ipratropium (Duoneb) 3 ml 1X ONCE NEB Last administered on 01/04/19at 10:45; Start 01/04/19 at 10:45; Stop 01/04/19 at 10:46; Status DC Furosemide (Lasix) 40 mg 1X ONCE IVP Last administered on 01/04/19at 11:07; Start 01/04/19 at 10:45; Stop 01/04/19 at 10:46; Status DC Heparin Sodium/ Dextrose 500 ml @ 16.3 mls/hr CONT PRN IV protocol Last administered on 01/04/19at 13:30; Start 01/04/19 at 11:45; Stop 01/05/19 at 11:04; Status DC Heparin Sodium (Porcine) (Heparin Sodium) 1,700 unit PRN Q6HRS PRN IV FOR UFH LEVEL LESS THAN 0.2; Start 01/04/19 at 11:45; Stop 01/05/19 at 11:04; Status DC Ondansetron HCl (Zofran) 4 mg PRN Q8HRS PRN IV NAUSEA/VOMITING; Start 01/04/19 at 11:45; Stop 01/05/19 at 11:44; Status DC Acetaminophen (Tylenol) 650 mg PRN Q4HRS PRN PO FEVER; Start 01/04/19 at 11:45; Stop 01/05/19 at 11:44; Status DC Nitroglycerin (Nitrostat) 0.4 mg PRN Q5MIN PRN SL CHEST PAIN; Start 01/04/19 at 11:45; Stop 01/04/19 at 18:59; Status DC Albuterol/ Ipratropium (Duoneb) 3 ml RTQID NEB Last administered on 01/05/19at 11:43; Start 01/04/19 at 12:00; Stop 01/05/19 at 11:59; Status DC Heparin Sodium (Porcine) (Heparin Sodium) 4,000 unit 1X ONCE IV Last administered on 01/04/19at 13:28; Start 01/04/19 at 13:30; Stop 01/04/19 at 13:31; Status DC Carvedilol (Coreg) 6.25 mg BIDWMEALS PO Last administered on 01/07/19at 08:57; Start 01/04/19 at 17:00 Aspirin (Ede Aspirin) 325 mg 1X ONCE PO Last administered on 01/04/19at 15:17; Start 01/04/19 at 13:15; Stop 01/04/19 at 13:47; Status DC Aspirin (Children'S Aspirin) 81 mg DAILYWBKFT PO Last administered on 01/07/19at 08:57; Start 01/05/19 at 08:00 Alprazolam (Xanax) 0.5 mg BID PO Last administered on 01/06/19 07:56; Start 01/04/19 at 21:00; Stop 01/06/19 at 10:19; Status DC Fentanyl (Duragesic 12mcg/ Hr Patch) 1 patch Q3DAYS TD ; Start 01/05/19 at 09:00; Stop 01/04/19 at 18:59; Status DC Pregabalin (Lyrica) 75 mg BID PO Last administered on 01/06/19 07:57; Start 01/04/19 at 21:00; Stop 01/06/19 at 10:19; Status DC Acetaminophen/ Hydrocodone Bitart (Lortab 5/325) 1 tab PRN BID PRN PO PAIN Last administered on 01/06/19 21:21; Start 01/04/19 at 13:15 Pantoprazole Sodium (Protonix) 40 mg DAILY PO Last administered on 01/07/19 08:58; Start 01/05/19 at 09:00 Hydroxychloroquine Sulfate (Plaquenil) 200 mg BID PO Last administered on 01/07/19 08:57; Start 01/04/19 at 21:00 Sertraline HCl (Zoloft) 100 mg DAILY PO Last administered on 01/06/19 07:57; Start 01/05/19 at 09:00; Stop 01/06/19 at 10:19; Status DC Zolpidem Tartrate (Ambien) 5 mg PRN QHS PRN PO INSOMNIA; Start 01/04/19 at 13:15 Ondansetron HCl (Zofran Odt) 4 mg PRN Q6HRS PRN PO NAUSEA Last administered on 01/06/19 07:59; Start 01/04/19 at 13:15 Vitamin D (Vitamin D3) 1,000 unit DAILY PO Last administered on 01/07/19 08:58; Start 01/05/19 at 09:00 Albuterol Sulfate (Ventolin Neb Soln) 2.5 mg PRN Q4HRS PRN NEB WHEEZING Last administered on 01/05/19 15:53; Start 01/04/19 at 13:15 Fentanyl (Duragesic 12mcg/ Hr Patch) 1 patch Q3DAYS TD Last administered on 01/07/19 09:06; Start 01/04/19 at 19:00 Nitroglycerin (Nitrostat) 0.4 mg PRN Q5MIN PRN SL CHEST PAIN; Start 01/04/19 at 19:00; Stop 01/05/19 at 18:59; Status DC Cefepime HCl (Maxipime) 1 gm Q12HR IVP ; Start 01/04/19 at 21:00; Stop 01/04/19 at 20:40; Status DC Vancomycin HCl (Vanco Per Pharmacy) 1 each 1X PRN PRN MC SEE COMMENTS Last administered on 01/04/19at 21:25; Start 01/04/19 at 19:45; Stop 01/05/19 at 07:50; Status DC Vancomycin HCl 1.75 gm/Sodium Chloride 500 ml @ 250 mls/hr 1X ONCE IV ; Start 01/04/19 at 20:45; Stop 01/04/19 at 22:44; Status Cancel Cefepime HCl (Maxipime) 1 gm QHS IVP Last administered on 01/04/19at 23:17; Start 01/04/19 at 21:00; Stop 01/05/19 at 09:49; Status DC Vancomycin HCl 1.5 gm/Sodium Chloride 500 ml @ 250 mls/hr 1X ONCE IV Last administered on 01/04/19at 21:19; Start 01/04/19 at 21:00; Stop 01/04/19 at 22:59; Status DC Info (Anti-Coagulation Monitoring By Pharmacy) 1 each PRN DAILY PRN MC SEE COMMENTS Last administered on 01/05/19at 10:49; Start 01/04/19 at 21:30 Vancomycin HCl 1 gm/Sodium Chloride 250 ml @ 250 mls/hr Q48H IV ; Start 01/06/19 at 21:00; Stop 01/05/19 at 10:30; Status DC Vancomycin HCl (Vanco Per Pharmacy) 1 each PRN DAILY PRN MC SEE COMMENTS Last administered on 01/06/19at 23:25; Start 01/05/19 at 07:45 Cefepime HCl (Maxipime) 1 gm BID IVP Last administered on 01/07/19at 09:04; Start 01/05/19 at 10:00 Vancomycin HCl 1 gm/Sodium Chloride 250 ml @ 250 mls/hr QHS IV Last administered on 01/05/19at 21:15; Start 01/05/19 at 21:00; Stop 01/06/19 at 22:44; Status DC Vancomycin HCl (Vancomycin Trough Level) 1 each 1X ONCE MC Last administered on 01/06/19at 20:30; Start 01/06/19 at 20:30; Stop 01/06/19 at 20:31; Status DC Enoxaparin Sodium (Lovenox 40mg Syringe) 40 mg Q24H SQ Last administered on 01/06/19at 11:27; Start 01/05/19 at 12:00 Magnesium Sulfate 50 ml @ 25 mls/hr 1X ONCE IV Last administered on 01/05/19at 12:32; Start 01/05/19 at 11:15; Stop 01/05/19 at 13:14; Status DC Alprazolam (Xanax) 0.25 mg PRN BID PRN PO ANXIETY / AGITATION; Start 01/06/19 a t 10:30 Pregabalin (Lyrica) 50 mg BID PO ; Start 01/06/19 at 11:00; Stop 01/06/19 at 11:04; Status DC Mirtazapine (Remeron) 15 mg QHS PO Last administered on 01/06/19at 21:21; Start 01/06/19 at 21:00 Pregabalin (Lyrica) 50 mg BID PO Last administered on 01/07/19at 08:58; Start 01/06/19 at 21:00 Vancomycin HCl 1.25 gm/Sodium Chloride 250 ml @ 167 mls/hr Q24H IV Last administered on 01/06/19at 23:01; Start 01/06/19 at 23:00 Vancomycin HCl (Vancomycin Trough Level) 1 each 1X ONCE MC ; Start 01/08/19 at 22:30; Stop 01/08/19 at 22:31 Active Scripts Active Prednisone 20 Mg Tablet 30 Mg PO DAILY 4 Days Aspirin Ec (Aspirin) 81 Mg Tablet.dr 81 Mg PO DAILYWBKFT Amox Tr-K Clv 875-125 Mg Tab (Amoxicillin/Potassium Clav) 1 Each Tablet 1 Tab PO BID Reported Senna (Sennosides) 8.6 Mg Tablet 8.6 Mg PO BID Zoloft (Sertraline Hcl) 100 Mg Tablet 100 Mg PO DAILY Amlodipine Besylate 5 Mg Tablet 5 Mg PO DAILY Coreg (Carvedilol) 25 Mg Tablet 25 Mg PO BID Lidocaine 1 Each Adh..patch 1 Each TP DAILY FENTANYL 12mcg/hr (Fentanyl) 1 Each Patch.td72 1 Patch TD Q72H Xanax (Alprazolam) 0.5 Mg Tablet 1 Tab PO BID Lyrica (Pregabalin) 75 Mg Capsule 75 Mg PO BID Omeprazole 20 Mg Capsule.dr 20 Mg PO BID Duoneb 0.5-3(2.5) Mg/3 Ml (Albuterol/Ipratropium) 3 Ml Ampul.neb 3 Ml NEB PRN Q4HRS PRN Ambien (Zolpidem Tartrate) 5 Mg Tablet 5 Mg PO PRN QHS PRN Hydrocodone-Apap 5-325 (Hydrocodone Bit/Acetaminophen) 1 Tab Tablet 1 Tab PO PRN Q8HRS PRN Vitamin D (Cholecalciferol (Vitamin D3)) 1,000 Unit Capsule 1 Cap PO DAILY Advair 250-50 Diskus (Fluticasone/Salmeterol) 1 Each Disk.w.dev 1 Puff IH BID Multi-Day Vitamins (Multivitamin) 1 Each Tablet 1 Tab PO DAILY Colace (Docusate Sodium) 100 Mg Capsule 100 Mg PO BID Vitals/I & O Vital Sign - Last 24 Hours 01/06/19 01/06/19 01/06/19 01/06/19 11:00 15:00 18:26 19:38 Temp 98.8 98.4 98.6 98.8 98.4 98.6 Pulse 80 80 83 86 Resp 18 16 14 B/P (MAP) 116/52 (73) 122/54 (76) 121/52 119/52 (74) Pulse Ox 96 99 95 O2 Delivery Nasal Cannula Nasal Cannula Nasal Cannula O2 Flow Rate 4.0 2.0 4.0 01/06/19 01/06/19 01/06/19 01/06/19 20:00 21:21 22:21 23:46 Temp 99.0 99.0 Pulse 71 Resp 12 B/P (MAP) 103/45 (64) Pulse Ox 95 100 O2 Delivery Nasal Cannula Nasal Cannula Nasal Cannula Nasal Cannula O2 Flow Rate 4.0 4.0 4.0 4.0 01/07/19 01/07/19 01/07/19 01/07/19 02:01 07:20 08:00 08:57 Temp 98.0 98.9 98.0 98.9 Pulse 75 82 82 Resp 14 14 B/P (MAP) 143/57 (85) 156/54 (88) 156/54 Pulse Ox 99 100 O2 Delivery Nasal Cannula Nasal Cannula Nasal Cannula O2 Flow Rate 4.0 4.0 3.0 01/07/19 09:06 Resp 12 Pulse Ox 99 O2 Delivery Nasal Cannula O2 Flow Rate 3.0 Intake and Output 01/06/19 01/06/19 01/07/19 15:00 23:00 07:00 Intake Total 100 ml 200 ml 350 ml Output Total 125 ml 550 ml Balance -25 ml 200 ml -200 ml KARAN KIMBLE MD Jan 07, 2019 10:26
[2019-01-07 10:41] VITALS: BP 137/59
--- NOTE | 2019-01-07 10:51 | NUR ---
SS following for discharge planning. SS reviewed pt chart. Pt is from home with caregiver and is currently requiring oxygen. No PT/OT needs identified at this time. SS will continue to follow for discharge planning.
[2019-01-07] MEDS: ENOXAPARIN 40 MG/0.4 ML SYRINGE. SQ SCH (13:02)
--- NOTE | 2019-01-07 13:18 | PDOC ---
CARDIO Progress Notes Date and Time Date of Service 01/07/19 Time of Evaluation 1300 Subjective Subjective: No Chest Pain, No shortness of breath Vitals Vitals Vital Signs Date Time Temp Pulse Resp B/P (MAP) Pulse Ox O2 Delivery O2 Flow Rate FiO2 01/07/19 13:02 90 Nasal Cannula 3.0 01/07/19 10:41 98.3 89 14 137/59 (85) 98.3 Weight Weight [ ] Input and Output Intake and Output Intake and Output 01/07/19 09:00 Intake Total 650 ml Output Total 675 ml Balance -25 ml Intake Oral 400 ml IV Total 250 ml Output Urine Total 675 ml # Bowel Movements 1 Laboratory Labs Laboratory Tests Test 01/06/19 21:18 01/07/19 05:50 01/07/19 07:22 Vancomycin Level Trough 8.1 mcg/mL (10.0-20.0) Vancomycin Last Dose Date 01/05/19 Vancomycin Last Dose Time 2100 White Blood Count 8.3 x10^3/uL (4.0-11.0) Red Blood Count 4.10 x10^6/uL (3.50-5.40) Hemoglobin 9.9 g/dL (12.0-15.5) Hematocrit 32.2 % (36.0-47.0) Mean Corpuscular Volume 79 fL (79-100) Mean Corpuscular Hemoglobin 24 pg (25-35) Mean Corpuscular Hemoglobin Concent 31 g/dL (31-37) Red Cell Distribution Width 17.2 % (11.5-14.5) Platelet Count 116 x10^3/uL (140-400) Neutrophils (%) (Auto) 78 % (31-73) Lymphocytes (%) (Auto) 11 % (24-48) Monocytes (%) (Auto) 10 % (0-9) Eosinophils (%) (Auto) 1 % (0-3) Basophils (%) (Auto) 0 % (0-3) Neutrophils # (Auto) 6.5 x10^3/uL (1.8-7.7) Lymphocytes # (Auto) 0.9 x10^3/uL (1.0-4.8) Monocytes # (Auto) 0.8 x10^3/uL (0.0-1.1) Eosinophils # (Auto) 0.1 x10^3/uL (0.0-0.7) Basophils # (Auto) 0.0 x10^3/uL (0.0-0.2) Sodium Level 140 mmol/L (136-145) Potassium Level 4.1 mmol/L (3.5-5.1) Chloride Level 100 mmol/L (98-107) Carbon Dioxide Level 33 mmol/L (21-32) Anion Gap 7 (6-14) Blood Urea Nitrogen 33 mg/dL (7-20) Creatinine 0.8 mg/dL (0.6-1.0) Estimated GFR (Cockcroft-Gault) 67.8 Glucose Level 82 mg/dL (70-99) Calcium Level 8.5 mg/dL (8.5-10.1) Procalcitonin 1.69 ng/mL (0.00-0.10) Glucose (Fingerstick) 86 mg/dL (70-99) Microbiology Micro Microbiology 01/04/19 Blood Culture - Preliminary, Resulted NO GROWTH AFTER 2 DAYS 01/04/19 Urine Culture - Final, Complete 01/04/19 Urine Culture Result 1 (NIKOLAS) - Final, Complete Physical Exam HEENT: Neck Supple W Full Motion Chest: Symmetric LUNGS: Clear to Auscultation Heart: S1S2, RRR, murmurs (3/6 systolic murmur ) Abdomen: Soft N/T Extremities: No Calf Tenderness Neurology: alert, follow commands, confused Assessment Assessment 1. Dyspnea in the setting of AE COPD and mild diastolic CHF; improved. 2. Acute on chronic diastolic CHF; Echo with preserved LV systolic function. Appears compensated following diuresis. Supportive care from a CV standpoint. 3. NSTEMI; trop peak 3. Possible type II, demand ischemia with multiple noted culprits. Echo with preserved LV systolic function. Medical management 4. Hypertension; remains mildly elevated. Add Norvasc. 5. Hyperlipidemia; LDL 95 6. SSS s/p PPM 7. Mitral stenosis, moderate 7. CKD 8. Bacteremia, sepsis. ? UTI; continue as per ID. 9. Metabolic encephalopathy CHRIS URBANO APRN Jan 07, 2019 13:18
[2019-01-07 14:07] VITALS: BP 151/59
--- NOTE | 2019-01-07 17:51 | NUR ---
Wound Care: Patient seen per wound care consult. See wound assessment. Patient has stage II pressure ulcer to coccyx. Wound cleansed and assessed. Recommendations for contact layer (left in room) and Aquacel foam dressing. Dressing applied. No other wounds noted upon complete head to toe assessment. Bilateral foams are on heels for protection. Patient repositioned to right side using wedge. Patient on a P-50 bed at this time. Bilateral heels floated using pillows. Dressing change instructions left in room. Bed lowered and call light in reach. Bed alarm set. Will follow patient regarding wound care.
[2019-01-07] MEDS: amLODIPine BESYLATE 5 MG TABLET PO SCH (18:05)
[2019-01-07 19:20] VITALS: BP 104/38
[2019-01-07] MEDS: VANCOMYCIN 1.25 GM in IV NORMAL SALINE 250ML 250 ML IV SCH (22:21)
[2019-01-07] MEDS: LACTOBACILLUS RHAMNOSUS GG 1 CAPSULE. PO SCH (22:22)
[2019-01-07] MEDS: MIRTAZAPINE 15 MG TABLET PO SCH (22:23)
[2019-01-07 22:30] VITALS: BP 151/56
[2019-01-08 03:20] VITALS: BP 148/63
[2019-01-08 07:00] VITALS: BP 144/65
--- NOTE | 2019-01-08 07:09 | PDOC ---
Infectious Disease Note Subjective: Subjective pt sleepy but arousable No fevers no chills denies any n/v/d/abdo pain Vital Signs: Vital Signs Vital Signs Date Time Temp Pulse Resp B/P (MAP) Pulse Ox O2 Delivery O2 Flow Rate FiO2 01/08/19 03:20 99.1 84 20 148/63 (91) 99 Nasal Cannula 3.0 99.1 Physical Exam: PHYSICAL EXAM GENERAL: Asleep HEENT: Oral cavity had pink and moist. Dentures in place. NECK: Supple. LUNGS: Diminished aeration, nonlabored. HEART: S1 and S2 regular. Pacemaker. ABDOMEN: Obese, soft and nontender with bowel sounds present. GENITOURINARY: Gray in place. EXTREMITIES: No gross edema or cyanosis. SKIN: Warm to touch, no signs of rash. Medications: Inpatient Meds: Current Medications Medications (Trade) Dose Ordered Sig/Lindsey Start Time Stop Time Status Last Admin Dose Admin Acetaminophen (Tylenol) 650 mg PRN Q4HRS PRN 01/04/19 11:45 01/05/19 11:44 DC Acetaminophen/ Hydrocodone Bitart (Lortab 5/325) 1 tab PRN BID PRN 01/04/19 13:15 01/06/19 21:21 1 TAB Albuterol Sulfate (Ventolin Neb Soln) 2.5 mg PRN Q4HRS PRN 01/04/19 13:15 01/05/19 15:53 2.5 MG Albuterol/ Ipratropium (Duoneb) 3 ml RTQID 01/04/19 12:00 01/05/19 11:59 DC 01/05/19 11:43 3 ML Alprazolam (Xanax) 0.25 mg PRN BID PRN 01/06/19 10:30 01/07/19 10:27 DC Amlodipine Besylate (Norvasc) 5 mg DAILY 01/07/19 18:00 01/07/19 18:05 5 MG Aspirin (Ede Aspirin) 325 mg 1X ONCE 01/04/19 13:15 01/04/19 13:47 DC 01/04/19 15:17 325 MG Aspirin (Children'S Aspirin) 81 mg DAILYWBKFT 01/05/19 08:00 01/07/19 08:57 81 MG Carvedilol (Coreg) 6.25 mg BIDWMEALS 01/04/19 17:00 01/07/19 16:29 6.25 MG Cefepime HCl (Maxipime) 1 gm BID 01/05/19 10:00 01/07/19 22:21 1 GM Enoxaparin Sodium (Lovenox 40mg Syringe) 40 mg Q24H 01/05/19 12:00 01/07/19 13:02 40 MG Fentanyl (Duragesic 12mcg/ Hr Patch) 1 patch Q3DAYS 01/04/19 19:00 01/07/19 09:06 1 PATCH Furosemide (Lasix) 40 mg 1X ONCE 01/04/19 10:45 01/04/19 10:46 DC 01/04/19 11:07 40 MG Heparin Sodium (Porcine) (Heparin Sodium) 4,000 unit 1X ONCE 01/04/19 13:30 01/04/19 13:31 DC 01/04/19 13:28 4,000 UNIT Heparin Sodium/ Dextrose 500 ml @ 16.3 mls/hr CONT PRN 01/04/19 11:45 01/05/19 11:04 DC 01/04/19 13:30 16.3 MLS/HR Hydroxychloroquine Sulfate (Plaquenil) 200 mg BID 01/04/19 21:00 01/07/19 22:23 200 MG Info (Anti-Coagulation Monitoring By Pharmacy) 1 each PRN DAILY PRN 01/04/19 21:30 01/05/19 10:49 1 EACH Lactobacillus Rhamnosus (Culturelle) 1 cap BID 01/07/19 21:00 01/07/19 22:22 1 CAP Magnesium Sulfate 50 ml @ 25 mls/hr 1X ONCE 01/05/19 11:15 01/05/19 13:14 DC 01/05/19 12:32 25 MLS/HR Mirtazapine (Remeron) 7.5 mg QHS 01/07/19 21:00 01/07/19 22:23 7.5 MG Nitroglycerin (Nitrostat) 0.4 mg PRN Q5MIN PRN 01/04/19 19:00 01/05/19 18:59 DC Ondansetron HCl (Zofran Odt) 4 mg PRN Q6HRS PRN 01/04/19 13:15 01/06/19 07:59 4 MG Ondansetron HCl (Zofran) 4 mg PRN Q8HRS PRN 01/04/19 11:45 01/05/19 11:44 DC Pantoprazole Sodium (Protonix) 40 mg DAILY 01/05/19 09:00 01/07/19 08:58 40 MG Pregabalin (Lyrica) 50 mg BID 01/06/19 21:00 01/07/19 22:22 50 MG Sertraline HCl (Zoloft) 100 mg DAILY 01/05/19 09:00 01/06/19 10:19 DC 01/06/19 07:57 100 MG Vancomycin HCl (Vanco Per Pharmacy) 1 each PRN DAILY PRN 01/05/19 07:45 01/06/19 23:25 1 EACH Vancomycin HCl (Vancomycin Trough Level) 1 each 1X ONCE 01/08/19 22:30 01/08/19 22:31 Vancomycin HCl 1.25 gm/Sodium Chloride 250 ml @ 167 mls/hr Q24H 01/06/19 23:00 01/07/19 22:21 167 MLS/HR Vancomycin HCl 1.5 gm/Sodium Chloride 500 ml @ 250 mls/hr 1X ONCE 01/04/19 21:00 01/04/19 22:59 DC 01/04/19 21:19 250 MLS/HR Vancomycin HCl 1.75 gm/Sodium Chloride 500 ml @ 250 mls/hr 1X ONCE 01/04/19 20:45 01/04/19 22:44 Cancel Vancomycin HCl 1 gm/Sodium Chloride 250 ml @ 250 mls/hr QHS 01/05/19 21:00 01/06/19 22:44 DC 01/05/19 21:15 250 MLS/HR Vitamin D (Vitamin D3) 1,000 unit DAILY 01/05/19 09:00 01/07/19 08:58 1,000 UNIT Zolpidem Tartrate (Ambien) 5 mg PRN QHS PRN 01/04/19 13:15 01/07/19 10:27 DC Labs: Lab Laboratory Tests Test 01/07/19 07:22 Glucose (Fingerstick) 86 mg/dL (70-99) Objective: Assessment: Grp B strep Bacteremia POA 01/04 (2 of 4 bottles) Fever resolved Questionable UTI, POA h/o MRSA Acute-on chronic respiratory failure. Influenza neg Acute-on chronic CHF SHA - better RA on plaquenil Diabetes Pacemaker Plan: Plan of Care DC Vanc Change cefepime to ceftriaxone f/u cultures f/u ct head Maintain aspiration precautions d/w EUSEBIO Sprague MD Jan 08, 2019 07:09
[2019-01-08] MEDS: cefTRIAXone IV Push 2 GM VIAL. IVP SCH (08:11)
[2019-01-08] MEDS: HYDROXYCHLOROQUINE 200 MG TABLET PO SCH ×2 (08:12→21:37)
[2019-01-08] MEDS: CHOLECALCIFEROL (VITAMIN D3) 1,000 UNIT TABLET PO SCH (08:12)
[2019-01-08] MEDS: CARVEDILOL 6.25 MG TABLET. PO SCH ×2 (08:12→17:33)
[2019-01-08] MEDS: PREGABALIN 50 MG CAPSULE PO SCH (08:12)
[2019-01-08] MEDS: PANTOPRAZOLE 40 MG TABLET.DR. PO SCH (08:13)
[2019-01-08] MEDS: LACTOBACILLUS RHAMNOSUS GG 1 CAPSULE. PO SCH (08:13)
[2019-01-08] MEDS: amLODIPine BESYLATE 5 MG TABLET PO SCH (08:13)
[2019-01-08] MEDS: ASPIRIN CHEWABLE 81 MG TABLET. PO SCH (08:13)
--- NOTE | 2019-01-08 10:06 | PDOC ---
PROGRESS NOTES Subjective Subjective more alert and talking. confused. knows she is in hospital but does not know year or month. discussed with family at bedside and nurse. ate most of breakfast today. Objective Objective Vital Signs Date Time Temp Pulse Resp B/P (MAP) Pulse Ox O2 Delivery O2 Flow Rate FiO2 01/08/19 08:13 76 144/65 01/08/19 08:00 Nasal Cannula 4.0 01/08/19 07:00 98.9 20 98 98.9 Intake and Output 01/08/19 07:00 Intake Total 885 ml Output Total 950 ml Balance -65 ml Intake Oral 650 ml IV Total 235 ml Output Urine Total 950 ml # Bowel Movements 2 Physical Exam Abdomen: Soft Heart: Normal S1, Normal S2 Extremities: No edema General: Alert, Other (confused) HEENT: Atraumatic Lungs: Other (clear anteriorly) Neuro: Normal speech Psych/Mental Status: Mood NL Skin: No rashes Assessment Assessment Problems. Non-ST segment elevated myocardial infarction. 2. Acute on chronic diastolic congestive heart failure. clinically compensated 3. Group B streptococcus bacteremia 4. urine culture negative 5. Hyperlipidemia with statin intolerance. 6. Acute kidney injury. due to dehydration resolved 7. Acute on chronic hypoxic respiratory failure. 8. Fibromyalgia. 9. Chronic pain. 10. Fever. resolved 11. Diarrhea. resolved 12. Anemia of chronic disease with some progression in the anemia. 13. Thrombocytopenia. stable 14. Chronic obstructive pulmonary disease. 15. Severe protein-calorie malnutrition. 16. Metabolic encephalopathy. diabetes mellitus type 2 with peripheral neuropathy hypertension moderate mitral stenosis per echo Medical Problems: (1) Acute and chronic respiratory failure Status: Acute (2) CHF exacerbation Status: Acute (3) Elevated troponin Status: Acute Plan Plan of Care continue iv rocephin ct head decrease lyrica d/c and remove fentanyl patch lab tomorrow Comment Review of Relevant I have reviewed the following items lizbeth (where applicable) has been applied. Labs Laboratory Tests Test 01/06/19 21:18 01/07/19 05:50 01/07/19 07:22 Vancomycin Level Trough 8.1 mcg/mL (10.0-20.0) Vancomycin Last Dose Date 01/05/19 Vancomycin Last Dose Time 2100 White Blood Count 8.3 x10^3/uL (4.0-11.0) Red Blood Count 4.10 x10^6/uL (3.50-5.40) Hemoglobin 9.9 g/dL (12.0-15.5) Hematocrit 32.2 % (36.0-47.0) Mean Corpuscular Volume 79 fL (79-100) Mean Corpuscular Hemoglobin 24 pg (25-35) Mean Corpuscular Hemoglobin Concent 31 g/dL (31-37) Red Cell Distribution Width 17.2 % (11.5-14.5) Platelet Count 116 x10^3/uL (140-400) Neutrophils (%) (Auto) 78 % (31-73) Lymphocytes (%) (Auto) 11 % (24-48) Monocytes (%) (Auto) 10 % (0-9) Eosinophils (%) (Auto) 1 % (0-3) Basophils (%) (Auto) 0 % (0-3) Neutrophils # (Auto) 6.5 x10^3/uL (1.8-7.7) Lymphocytes # (Auto) 0.9 x10^3/uL (1.0-4.8) Monocytes # (Auto) 0.8 x10^3/uL (0.0-1.1) Eosinophils # (Auto) 0.1 x10^3/uL (0.0-0.7) Basophils # (Auto) 0.0 x10^3/uL (0.0-0.2) Sodium Level 140 mmol/L (136-145) Potassium Level 4.1 mmol/L (3.5-5.1) Chloride Level 100 mmol/L (98-107) Carbon Dioxide Level 33 mmol/L (21-32) Anion Gap 7 (6-14) Blood Urea Nitrogen 33 mg/dL (7-20) Creatinine 0.8 mg/dL (0.6-1.0) Estimated GFR (Cockcroft-Gault) 67.8 Glucose Level 82 mg/dL (70-99) Calcium Level 8.5 mg/dL (8.5-10.1) Procalcitonin 1.69 ng/mL (0.00-0.10) Glucose (Fingerstick) 86 mg/dL (70-99) Microbiology 01/04/19 Blood Culture - Preliminary, Resulted NO GROWTH AFTER 3 DAYS 01/04/19 Urine Culture - Final, Complete 01/04/19 Urine Culture Result 1 (NIKOLAS) - Final, Complete Medications Current Medications Albuterol/ Ipratropium (Duoneb) 3 ml 1X ONCE NEB Last administered on 01/04/19at 10:45; Start 01/04/19 at 10:45; Stop 01/04/19 at 10:46; Status DC Furosemide (Lasix) 40 mg 1X ONCE IVP Last administered on 01/04/19at 11:07; Start 01/04/19 at 10:45; Stop 01/04/19 at 10:46; Status DC Heparin Sodium/ Dextrose 500 ml @ 16.3 mls/hr CONT PRN IV protocol Last administered on 01/04/19at 13:30; Start 01/04/19 at 11:45; Stop 01/05/19 at 11:04; Status DC Heparin Sodium (Porcine) (Heparin Sodium) 1,700 unit PRN Q6HRS PRN IV FOR UFH LEVEL LESS THAN 0.2; Start 01/04/19 at 11:45; Stop 01/05/19 at 11:04; Status DC Ondansetron HCl (Zofran) 4 mg PRN Q8HRS PRN IV NAUSEA/VOMITING; Start 01/04/19 at 11:45; Stop 01/05/19 at 11:44; Status DC Acetaminophen (Tylenol) 650 mg PRN Q4HRS PRN PO FEVER; Start 01/04/19 at 11:45; Stop 01/05/19 at 11:44; Status DC Nitroglycerin (Nitrostat) 0.4 mg PRN Q5MIN PRN SL CHEST PAIN; Start 01/04/19 at 11:45; Stop 01/04/19 at 18:59; Status DC Albuterol/ Ipratropium (Duoneb) 3 ml RTQID NEB Last administered on 01/05/19at 11:43; Start 01/04/19 at 12:00; Stop 01/05/19 at 11:59; Status DC Heparin Sodium (Porcine) (Heparin Sodium) 4,000 unit 1X ONCE IV Last administered on 01/04/19at 13:28; Start 01/04/19 at 13:30; Stop 01/04/19 at 13:31; Status DC Carvedilol (Coreg) 6.25 mg BIDWMEALS PO Last administered on 01/08/19at 08:12; Start 01/04/19 at 17:00 Aspirin (Ede Aspirin) 325 mg 1X ONCE PO Last administered on 01/04/19at 15:17; Start 01/04/19 at 13:15; Stop 01/04/19 at 13:47; Status DC Aspirin (Children'S Aspirin) 81 mg DAILYWBKFT PO Last administered on 01/08/19at 08:13; Start 01/05/19 at 08:00 Alprazolam (Xanax) 0.5 mg BID PO Last administered on 01/06/19at 07:56; Start 01/04/19 at 21:00; Stop 01/06/19 at 10:19; Status DC Fentanyl (Duragesic 12mcg/ Hr Patch) 1 patch Q3DAYS TD ; Start 01/05/19 at 09:00; Stop 01/04/19 at 18:59; Status DC Pregabalin (Lyrica) 75 mg BID PO Last administered on 01/06/19at 07:57; Start 01/04/19 at 21:00; Stop 01/06/19 at 10:19; Status DC Acetaminophen/ Hydrocodone Bitart (Lortab 5/325) 1 tab PRN BID PRN PO PAIN Last administered on 01/06/19at 21:21; Start 01/04/19 at 13:15 Pantoprazole Sodium (Protonix) 40 mg DAILY PO Last administered on 01/08/19at 08:13; Start 01/05/19 at 09:00 Hydroxychloroquine Sulfate (Plaquenil) 200 mg BID PO Last administered on 01/08/19at 08:12; Start 01/04/19 at 21:00 Sertraline HCl (Zoloft) 100 mg DAILY PO Last administered on 01/06/19at 07:57; Start 01/05/19 at 09:00; Stop 01/06/19 at 10:19; Status DC Zolpidem Tartrate (Ambien) 5 mg PRN QHS PRN PO INSOMNIA; Start 01/04/19 at 13:15; Stop 01/07/19 at 10:27; Status DC Ondansetron HCl (Zofran Odt) 4 mg PRN Q6HRS PRN PO NAUSEA Last administered on 01/06/19at 07:59; Start 01/04/19 at 13:15 Vitamin D (Vitamin D3) 1,000 unit DAILY PO Last administered on 01/08/19 08:12; Start 01/05/19 at 09:00 Albuterol Sulfate (Ventolin Neb Soln) 2.5 mg PRN Q4HRS PRN NEB WHEEZING Last administered on 01/05/19at 15:53; Start 01/04/19 at 13:15 Fentanyl (Duragesic 12mcg/ Hr Patch) 1 patch Q3DAYS TD Last administered on 01/07/19at 09:06; Start 01/04/19 at 19:00 Nitroglycerin (Nitrostat) 0.4 mg PRN Q5MIN PRN SL CHEST PAIN; Start 01/04/19 at 19:00; Stop 01/05/19 at 18:59; Status DC Cefepime HCl (Maxipime) 1 gm Q12HR IVP ; Start 01/04/19 at 21:00; Stop 01/04/19 at 20:40; Status DC Vancomycin HCl (Vanco Per Pharmacy) 1 each 1X PRN PRN MC SEE COMMENTS Last administered on 01/04/19at 21:25; Start 01/04/19 at 19:45; Stop 01/05/19 at 07:50; Status DC Vancomycin HCl 1.75 gm/Sodium Chloride 500 ml @ 250 mls/hr 1X ONCE IV ; Start 01/04/19 at 20:45; Stop 01/04/19 at 22:44; Status Cancel Cefepime HCl (Maxipime) 1 gm QHS IVP Last administered on 01/04/19at 23:17; Start 01/04/19 at 21:00; Stop 01/05/19 at 09:49; Status DC Vancomycin HCl 1.5 gm/Sodium Chloride 500 ml @ 250 mls/hr 1X ONCE IV Last administered on 01/04/19at 21:19; Start 01/04/19 at 21:00; Stop 01/04/19 at 22:59; Status DC Info (Anti-Coagulation Monitoring By Pharmacy) 1 each PRN DAILY PRN MC SEE COMMENTS Last administered on 01/05/19at 10:49; Start 01/04/19 at 21:30 Vancomycin HCl 1 gm/Sodium Chloride 250 ml @ 250 mls/hr Q48H IV ; Start 01/06/19 at 21:00; Stop 01/05/19 at 10:30; Status DC Vancomycin HCl (Vanco Per Pharmacy) 1 each PRN DAILY PRN MC SEE COMMENTS Last administered on 01/06/19at 23:25; Start 01/05/19 at 07:45 Cefepime HCl (Maxipime) 1 gm BID IVP Last administered on 01/07/19at 22:21; Start 01/05/19 at 10:00; Stop 01/08/19 at 07:11; Status DC Vancomycin HCl 1 gm/Sodium Chloride 250 ml @ 250 mls/hr QHS IV Last administered on 01/05/19at 21:15; Start 01/05/19 at 21:00; Stop 01/06/19 at 22:44; Status DC Vancomycin HCl (Vancomycin Trough Level) 1 each 1X ONCE MC Last administered on 01/06/19at 20:30; Start 01/06/19 at 20:30; Stop 01/06/19 at 20:31; Status DC Enoxaparin Sodium (Lovenox 40mg Syringe) 40 mg Q24H SQ Last administered on 01/07/19at 13:02; Start 01/05/19 at 12:00 Magnesium Sulfate 50 ml @ 25 mls/hr 1X ONCE IV Last administered on 01/05/19at 12:32; Start 01/05/19 at 11:15; Stop 01/05/19 at 13:14; Status DC Alprazolam (Xanax) 0.25 mg PRN BID PRN PO ANXIETY / AGITATION; Start 01/06/19 at 10:30; Stop 01/07/19 at 10:27; Status DC Pregabalin (Lyrica) 50 mg BID PO ; Start 01/06/19 at 11:00; Stop 01/06/19 at 11:04; Status DC Mirtazapine (Remeron) 15 mg QHS PO Last administered on 01/06/19at 21:21; Start 01/06/19 at 21:00; Stop 01/07/19 at 10:27; Status DC Pregabalin (Lyrica) 50 mg BID PO Last administered on 01/08/19at 08:12; Start 01/06/19 at 21:00 Vancomycin HCl 1.25 gm/Sodium Chloride 250 ml @ 167 mls/hr Q24H IV Last administered on 01/07/19at 22:21; Start 01/06/19 at 23:00; Stop 01/08/19 at 07:11; Status DC Vancomycin HCl (Vancomycin Trough Level) 1 each 1X ONCE MC ; Start 01/08/19 at 22:30; Stop 01/08/19 at 22:31 Mirtazapine (Remeron) 7.5 mg QHS PO Last administered on 01/07/19at 22:23; Start 01/07/19 at 21:00 Lactobacillus Rhamnosus (Culturelle) 1 cap BID PO Last administered on 01/08/19at 08:13; Start 01/07/19 at 21:00 Amlodipine Besylate (Norvasc) 5 mg DAILY PO Last administered on 01/08/19at 08:13; Start 01/07/19 at 18:00 Ceftriaxone Sodium (Rocephin) 2 gm Q24H IVP Last administered on 01/08/19at 08:11; Start 01/08/19 at 07:30 Active Scripts Active Prednisone 20 Mg Tablet 30 Mg PO DAILY 4 Days Aspirin Ec (Aspirin) 81 Mg Tablet.dr 81 Mg PO DAILYWBKFT Amox Tr-K Clv 875-125 Mg Tab (Amoxicillin/Potassium Clav) 1 Each Tablet 1 Tab PO BID Reported Senna (Sennosides) 8.6 Mg Tablet 8.6 Mg PO BID Zoloft (Sertraline Hcl) 100 Mg Tablet 100 Mg PO DAILY Amlodipine Besylate 5 Mg Tablet 5 Mg PO DAILY Coreg (Carvedilol) 25 Mg Tablet 25 Mg PO BID Lidocaine 1 Each Adh..patch 1 Each TP DAILY FENTANYL 12mcg/hr (Fentanyl) 1 Each Patch.td72 1 Patch TD Q72H Xanax (Alprazolam) 0.5 Mg Tablet 1 Tab PO BID Lyrica (Pregabalin) 75 Mg Capsule 75 Mg PO BID Omeprazole 20 Mg Capsule.dr 20 Mg PO BID Duoneb 0.5-3(2.5) Mg/3 Ml (Albuterol/Ipratropium) 3 Ml Ampul.neb 3 Ml NEB PRN Q4HRS PRN Ambien (Zolpidem Tartrate) 5 Mg Tablet 5 Mg PO PRN QHS PRN Hydrocodone-Apap 5-325 (Hydrocodone Bit/Acetaminophen) 1 Tab Tablet 1 Tab PO PRN Q8HRS PRN Vitamin D (Cholecalciferol (Vitamin D3)) 1,000 Unit Capsule 1 Cap PO DAILY Advair 250-50 Diskus (Fluticasone/Salmeterol) 1 Each Disk.w.dev 1 Puff IH BID Multi-Day Vitamins (Multivitamin) 1 Each Tablet 1 Tab PO DAILY Colace (Docusate Sodium) 100 Mg Capsule 100 Mg PO BID Vitals/I & O Vital Sign - Last 24 Hours 01/07/19 01/07/19 01/07/19 01/07/19 10:41 13:02 14:07 16:29 Temp 98.3 98.3 98.3 98.3 Pulse 89 93 93 Resp 14 14 B/P (MAP) 137/59 (85) 151/59 (89) 151/59 Pulse Ox 95 90 93 O2 Delivery Nasal Cannula Nasal Cannula Nasal Cannula O2 Flow Rate 4.0 3.0 4.0 01/07/19 01/07/19 01/07/19 01/07/19 18:05 19:20 20:00 22:30 Temp 100.3 99.5 100.3 99.5 Pulse 93 95 87 Resp 20 B/P (MAP) 151/59 104/38 (60) 151/56 (87) Pulse Ox 95 96 O2 Delivery Nasal Cannula Nasal Cannula Nasal Cannula O2 Flow Rate 3.0 3.0 3.0 01/08/19 01/08/19 01/08/19 01/08/19 03:20 07:00 08:00 08:12 Temp 99.1 98.9 99.1 98.9 Pulse 84 76 76 Resp 20 20 B/P (MAP) 148/63 (91) 144/65 (91) 144/65 Pulse Ox 99 98 O2 Delivery Nasal Cannula Nasal Cannula Nasal Cannula O2 Flow Rate 3.0 4.0 4.0 01/08/19 08:13 Pulse 76 B/P (MAP) 144/65 Intake and Output 01/07/19 01/07/19 01/08/19 15:00 23:00 07:00 Intake Total 100 ml 350 ml 435 ml Output Total 450 ml 500 ml Balance 100 ml -100 ml -65 ml KARAN KIMBLE MD Jan 08, 2019 10:05
[2019-01-08 10:53] VITALS: BP 102/45
--- NOTE | 2019-01-08 11:34 | PDOC ---
CARDIO Progress Notes Date and Time Date of Service 01/08/2019 Time of Evaluation 1110 Subjective Subjective: No Chest Pain, No shortness of breath, No Palpitations Vitals Vitals Vital Signs Date Time Temp Pulse Resp B/P (MAP) Pulse Ox O2 Delivery O2 Flow Rate FiO2 01/08/19 10:53 98.7 78 20 102/45 (64) 97 Nasal Cannula 4.0 98.7 Weight Weight [ ] Input and Output Intake and Output Intake and Output 01/08/19 07:00 Intake Total 885 ml Output Total 950 ml Balance -65 ml Intake Oral 650 ml IV Total 235 ml Output Urine Total 950 ml # Bowel Movements 2 Microbiology Micro Microbiology 01/04/19 Blood Culture - Preliminary, Resulted NO GROWTH AFTER 3 DAYS 01/04/19 Urine Culture - Final, Complete 01/04/19 Urine Culture Result 1 (NIKOLAS) - Final, Complete Physical Exam HEENT: Neck Supple W Full Motion Chest: Symmetric LUNGS: Other (basilar crackles) Heart: S1S2, RRR (SR), murmurs (3/6 cpial diastolic murmur ) Abdomen: Soft N/T Extremities: No Calf Tenderness Neurology: alert, follow commands, other (periods of confusion) Assessment Assessment 1. Acute on chronic respiratory failure with underlying AECOPD, CHF, and possible aspiration 2. Acute on chronic diastolic CHF: compensated. preserved EF 3. NSTEMI: peaked troponin at 3, likely demand mediated, type 2 4. Sepsis with bacteremia and possible UTI. ID following 5. HTN: controlled, 6. 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 intolerant to statins 7. SSS s/p PPM 8. 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 Metabolic encephalopathy 9. Hx of RA Recommendations 1. ASA. Statin, continue coreg. 2. Outpt stress test. 3. WEN is a consideration if ID deemed it warranted. 4. Supportive care EMANUEL KELLEY [employer] OPERATOR Jan 08, 2019 11:33
[2019-01-08] MEDS: ENOXAPARIN 40 MG/0.4 ML SYRINGE. SQ SCH (12:25)
--- NOTE | 2019-01-08 12:48 | RAD ---
EXAM: Head CT without contrast. HISTORY: Altered mental status. TECHNIQUE: Computed tomographic images of the head were obtained without contrast.. *One or more of the following individualized dose reduction techniques were utilized for this examination: 1. Automated exposure control. 2. Adjustment of the mA and/or kV according to patient size. 3. Use of iterative reconstruction technique. COMPARISON: 05/20/2018. FINDINGS: There is no acute or subacute extra-axial or intraparenchymal hemorrhage. There is no mass effect or midline shift. There is no hydrocephalus. There are areas of decreased attenuation within the cerebral white matter, nonspecific and likely related to chronic small vessel disease. There is cerebral volume loss. There are incidental calcifications within the basal ganglia. There is calcified plaque within the distal vertebral and internal carotid arteries. There is ethmoid sinus because of thickening. There is evidence of lens surgery. The mastoid air cells are clear. There is no suspicious calvarial lesion. IMPRESSION: 1. No acute intracranial finding. Note is made that MRI is more sensitive for acute infarction. 2. Decreased aeration within the cerebral white matter, likely due to chronic small vessel disease. Electronically signed by: Ina King MD (01/08/2019 12:45 PM) [id number]
[2019-01-08 15:27] VITALS: BP 160/59
[2019-01-08 19:20] VITALS: BP 139/69
[2019-01-08] MEDS: HYDROcodone/APAP 5/325MG 1 TAB TABLET PO PRN (21:37)
[2019-01-08] MEDS: PREGABALIN 25 MG CAPSULE PO SCH (21:37)
[2019-01-08] MEDS: MIRTAZAPINE 15 MG TABLET PO SCH (21:38)
[2019-01-08 23:15] VITALS: BP 162/69
[2019-01-09 03:15] VITALS: BP 163/66
[2019-01-09] MEDS: ALBUTEROL SULFATE 2.5 MG/3 ML NEBU. NEB PRN (03:49)
[2019-01-09 05:42] LABS: BASO % 0 % (0-3); EOS # 0.1 x10^3/uL (0.0-0.7); EOS % 1 % (0-3); HEMATOCRIT 30.6 % (36.0-47.0); HEMOGLOBIN 9.4 g/dL (12.0-15.5); LYMPH # 0.8 x10^3/uL (1.0-4.8); LYMPH % 8 % (24-48); MEAN CORPUSCULAR HEMOGLOBIN 24 pg (25-35); MEAN CORPUSCULAR HGB CONC 31 g/dL (31-37); MEAN CORPUSCULAR VOLUME 78 fL (79-100); MONO # 0.8 x10^3/uL (0.0-1.1); MONO % 8 % (0-9); NEUT # 8.5 x10^3/uL (1.8-7.7); NEUT % 83 % (31-73); PLATELET COUNT 142 x10^3/uL (140-400); RED BLOOD COUNT 3.93 x10^6/uL (3.50-5.40); RED CELL DISTRIBUTION WIDTH 16.6 % (11.5-14.5); WHITE BLOOD COUNT 10.3 x10^3/uL (4.0-11.0)
[2019-01-09 06:02] LABS: CREATININE 0.8 mg/dL (0.6-1.0); GFR 67.8; POTASSIUM 3.7 mmol/L (3.5-5.1)
[2019-01-09 06:57] VITALS: BP 160/72
--- NOTE | 2019-01-09 08:30 | PDOC ---
Infectious Disease Note Subjective: Subjective pt sleepy but arousable No fevers no chills denies any n/v/d/abdo pain Vital Signs: Vital Signs Vital Signs Date Time Temp Pulse Resp B/P (MAP) Pulse Ox O2 Delivery O2 Flow Rate FiO2 01/09/19 06:57 98.6 91 20 160/72 (101) 96 Nasal Cannula 4.0 98.6 Physical Exam: PHYSICAL EXAM GENERAL: Asleep HEENT: Oral cavity had pink and moist. Dentures in place. NECK: Supple. LUNGS: Diminished aeration, nonlabored. HEART: S1 and S2 regular. Pacemaker. ABDOMEN: Obese, soft and nontender with bowel sounds present. GENITOURINARY: Gray in place. EXTREMITIES: No gross edema or cyanosis. SKIN: Warm to touch, no signs of rash. Medications: Inpatient Meds: Current Medications Medications (Trade) Dose Ordered Sig/Lindsey Start Time Stop Time Status Last Admin Dose Admin Acetaminophen (Tylenol) 650 mg PRN Q4HRS PRN 01/04/19 11:45 01/05/19 11:44 DC Acetaminophen/ Hydrocodone Bitart (Lortab 5/325) 1 tab PRN BID PRN 01/04/19 13:15 01/08/19 21:37 1 TAB Albuterol Sulfate (Ventolin Neb Soln) 2.5 mg PRN Q4HRS PRN 01/04/19 13:15 01/09/19 03:49 2.5 MG Albuterol/ Ipratropium (Duoneb) 3 ml RTQID 01/04/19 12:00 01/05/19 11:59 DC 01/05/19 11:43 3 ML Alprazolam (Xanax) 0.25 mg PRN BID PRN 01/06/19 10:30 01/07/19 10:27 DC Amlodipine Besylate (Norvasc) 5 mg DAILY 01/07/19 18:00 01/08/19 08:13 5 MG Aspirin (Ede Aspirin) 325 mg 1X ONCE 01/04/19 13:15 01/04/19 13:47 DC 01/04/19 15:17 325 MG Aspirin (Children'S Aspirin) 81 mg DAILYWBKFT 01/05/19 08:00 01/08/19 08:13 81 MG Carvedilol (Coreg) 6.25 mg BIDWMEALS 01/04/19 17:00 01/08/19 17:33 6.25 MG Cefepime HCl (Maxipime) 1 gm BID 01/05/19 10:00 01/08/19 07:11 DC 01/07/19 22:21 1 GM Ceftriaxone Sodium (Rocephin) 2 gm Q24H 01/08/19 07:30 01/08/19 08:11 2 GM Enoxaparin Sodium (Lovenox 40mg Syringe) 40 mg Q24H 01/05/19 12:00 01/08/19 12:25 40 MG Fentanyl (Duragesic 12mcg/ Hr Patch) 1 patch Q3DAYS 01/04/19 19:00 01/08/19 10:07 DC 01/07/19 09:06 1 PATCH Furosemide (Lasix) 40 mg 1X ONCE 01/04/19 10:45 01/04/19 10:46 DC 01/04/19 11:07 40 MG Heparin Sodium (Porcine) (Heparin Sodium) 4,000 unit 1X ONCE 01/04/19 13:30 01/04/19 13:31 DC 01/04/19 13:28 4,000 UNIT Heparin Sodium/ Dextrose 500 ml @ 16.3 mls/hr CONT PRN 01/04/19 11:45 01/05/19 11:04 DC 01/04/19 13:30 16.3 MLS/HR Hydroxychloroquine Sulfate (Plaquenil) 200 mg BID 01/04/19 21:00 01/08/19 21:37 200 MG Info (Anti-Coagulation Monitoring By Pharmacy) 1 each PRN DAILY PRN 01/04/19 21:30 01/08/19 10:59 DC 01/05/19 10:49 1 EACH Lactobacillus Rhamnosus (Culturelle) 1 cap BID 01/07/19 21:00 01/08/19 11:05 DC 01/08/19 08:13 1 CAP Magnesium Sulfate 50 ml @ 25 mls/hr 1X ONCE 01/05/19 11:15 01/05/19 13:14 DC 01/05/19 12:32 25 MLS/HR Mirtazapine (Remeron) 7.5 mg QHS 01/07/19 21:00 01/08/19 21:38 7.5 MG Nitroglycerin (Nitrostat) 0.4 mg PRN Q5MIN PRN 01/04/19 19:00 01/05/19 18:59 DC Ondansetron HCl (Zofran Odt) 4 mg PRN Q6HRS PRN 01/04/19 13:15 01/06/19 07:59 4 MG Ondansetron HCl (Zofran) 4 mg PRN Q8HRS PRN 01/04/19 11:45 01/05/19 11:44 DC Pantoprazole Sodium (Protonix) 40 mg DAILY 01/05/19 09:00 01/08/19 08:13 40 MG Pregabalin (Lyrica) 25 mg BID 01/08/19 21:00 01/08/19 21:37 25 MG Sertraline HCl (Zoloft) 100 mg DAILY 01/05/19 09:00 01/06/19 10:19 DC 01/06/19 07:57 100 MG Vancomycin HCl (Vanco Per Pharmacy) 1 each PRN DAILY PRN 01/05/19 07:45 01/08/19 10:59 DC 01/06/19 23:25 1 EACH Vancomycin HCl (Vancomycin Trough Level) 1 each 1X ONCE 01/08/19 22:30 01/08/19 11:06 DC Vancomycin HCl 1.25 gm/Sodium Chloride 250 ml @ 167 mls/hr Q24H 01/06/19 23:00 01/08/19 07:11 DC 01/07/19 22:21 167 MLS/HR Vancomycin HCl 1.5 gm/Sodium Chloride 500 ml @ 250 mls/hr 1X ONCE 01/04/19 21:00 01/04/19 22:59 DC 01/04/19 21:19 250 MLS/HR Vancomycin HCl 1.75 gm/Sodium Chloride 500 ml @ 250 mls/hr 1X ONCE 01/04/19 20:45 01/04/19 22:44 Cancel Vancomycin HCl 1 gm/Sodium Chloride 250 ml @ 250 mls/hr QHS 01/05/19 21:00 01/06/19 22:44 DC 01/05/19 21:15 250 MLS/HR Vitamin D (Vitamin D3) 1,000 unit DAILY 01/05/19 09:00 01/08/19 08:12 1,000 UNIT Zolpidem Tartrate (Ambien) 5 mg PRN QHS PRN 01/04/19 13:15 01/07/19 10:27 DC Labs: Lab Laboratory Tests Test 01/08/19 20:46 01/09/19 05:20 Glucose (Fingerstick) 189 mg/dL (70-99) White Blood Count 10.3 x10^3/uL (4.0-11.0) Red Blood Count 3.93 x10^6/uL (3.50-5.40) Hemoglobin 9.4 g/dL (12.0-15.5) Hematocrit 30.6 % (36.0-47.0) Mean Corpuscular Volume 78 fL (79-100) Mean Corpuscular Hemoglobin 24 pg (25-35) Mean Corpuscular Hemoglobin Concent 31 g/dL (31-37) Red Cell Distribution Width 16.6 % (11.5-14.5) Platelet Count 142 x10^3/uL (140-400) Neutrophils (%) (Auto) 83 % (31-73) Lymphocytes (%) (Auto) 8 % (24-48) Monocytes (%) (Auto) 8 % (0-9) Eosinophils (%) (Auto) 1 % (0-3) Basophils (%) (Auto) 0 % (0-3) Neutrophils # (Auto) 8.5 x10^3/uL (1.8-7.7) Lymphocytes # (Auto) 0.8 x10^3/uL (1.0-4.8) Monocytes # (Auto) 0.8 x10^3/uL (0.0-1.1) Eosinophils # (Auto) 0.1 x10^3/uL (0.0-0.7) Basophils # (Auto) 0.0 x10^3/uL (0.0-0.2) Sodium Level 142 mmol/L (136-145) Potassium Level 3.7 mmol/L (3.5-5.1) Chloride Level 102 mmol/L (98-107) Carbon Dioxide Level 35 mmol/L (21-32) Anion Gap 5 (6-14) Blood Urea Nitrogen 28 mg/dL (7-20) Creatinine 0.8 mg/dL (0.6-1.0) Estimated GFR (Cockcroft-Gault) 67.8 Glucose Level 112 mg/dL (70-99) Calcium Level 9.0 mg/dL (8.5-10.1) Objective: Assessment: Grp B strep Bacteremia POA 01/04 (2 of 4 bottles) Fever resolved Questionable UTI, POA h/o MRSA Acute-on chronic respiratory failure. 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
[2019-01-09 10:13] VITALS: BP 185/81
[2019-01-09] MEDS ORDERED: CARVEDILOL 6.25 MG TABLET. PO SCH (10:30)
--- NOTE | 2019-01-09 10:32 | PDOC ---
PROGRESS NOTES Subjective Subjective she is more alert. feels better but says she is short of breath. oxygen sat 99% on oxygen 4LNC. denies cough. bp is high. lab reviewed Objective Objective Vital Signs Date Time Temp Pulse Resp B/P (MAP) Pulse Ox O2 Delivery O2 Flow Rate FiO2 01/09/19 10:13 99.0 101 20 185/81 (115) 99 Nasal Cannula 4.0 99.0 Intake and Output 01/09/19 07:00 Intake Total 740 ml Output Total 850 ml Balance -110 ml Intake Oral 740 ml Output Urine Total 850 ml Physical Exam Abdomen: Soft Heart: Normal S1, Normal S2 Extremities: No edema General: Alert HEENT: Atraumatic Lungs: Clear to auscultation, Other (decreased breath sounds) Neuro: Normal speech Psych/Mental Status: Mood NL Skin: No rashes Assessment Assessment Problems Non-ST segment elevated myocardial infarction. 2. Acute on chronic diastolic congestive heart failure. clinically compensated 3. Group B streptococcus bacteremia 4. 5. Hyperlipidemia with statin intolerance. 6. Acute kidney injury. due to dehydration resolved 7. Acute on chronic hypoxic respiratory failure. 8. Fibromyalgia. 9. Chronic pain. 10. Fever. resolved 11. Diarrhea. resolved 12. Anemia of chronic disease with some progression in the anemia. 13. Thrombocytopenia. resolved 14. Chronic obstructive pulmonary disease. 15. Severe protein-calorie malnutrition. 16. Metabolic encephalopathy. diabetes mellitus type 2 with peripheral neuropathy hypertension. bp high moderate mitral stenosis per echo Medical Problems: (1) Acute and chronic respiratory failure Status: Acute (2) CHF exacerbation Status: Acute (3) Elevated troponin Status: Acute Plan Plan of Care continue iv rocephin cxr and oxgen and nebulizer rx increase carvedilol and continue amlodipine Comment Review of Relevant I have reviewed the following items lizbeth (where applicable) has been applied. Labs Laboratory Tests Test 01/08/19 20:46 01/09/19 05:20 Glucose (Fingerstick) 189 mg/dL (70-99) White Blood Count 10.3 x10^3/uL (4.0-11.0) Red Blood Count 3.93 x10^6/uL (3.50-5.40) Hemoglobin 9.4 g/dL (12.0-15.5) Hematocrit 30.6 % (36.0-47.0) Mean Corpuscular Volume 78 fL (79-100) Mean Corpuscular Hemoglobin 24 pg (25-35) Mean Corpuscular Hemoglobin Concent 31 g/dL (31-37) Red Cell Distribution Width 16.6 % (11.5-14.5) Platelet Count 142 x10^3/uL (140-400) Neutrophils (%) (Auto) 83 % (31-73) Lymphocytes (%) (Auto) 8 % (24-48) Monocytes (%) (Auto) 8 % (0-9) Eosinophils (%) (Auto) 1 % (0-3) Basophils (%) (Auto) 0 % (0-3) Neutrophils # (Auto) 8.5 x10^3/uL (1.8-7.7) Lymphocytes # (Auto) 0.8 x10^3/uL (1.0-4.8) Monocytes # (Auto) 0.8 x10^3/uL (0.0-1.1) Eosinophils # (Auto) 0.1 x10^3/uL (0.0-0.7) Basophils # (Auto) 0.0 x10^3/uL (0.0-0.2) Sodium Level 142 mmol/L (136-145) Potassium Level 3.7 mmol/L (3.5-5.1) Chloride Level 102 mmol/L (98-107) Carbon Dioxide Level 35 mmol/L (21-32) Anion Gap 5 (6-14) Blood Urea Nitrogen 28 mg/dL (7-20) Creatinine 0.8 mg/dL (0.6-1.0) Estimated GFR (Cockcroft-Gault) 67.8 Glucose Level 112 mg/dL (70-99) Calcium Level 9.0 mg/dL (8.5-10.1) Laboratory Tests Test 01/08/19 20:46 01/09/19 05:20 Glucose (Fingerstick) 189 mg/dL (70-99) White Blood Count 10.3 x10^3/uL (4.0-11.0) Red Blood Count 3.93 x10^6/uL (3.50-5.40) Hemoglobin 9.4 g/dL (12.0-15.5) Hematocrit 30.6 % (36.0-47.0) Mean Corpuscular Volume 78 fL (79-100) Mean Corpuscular Hemoglobin 24 pg (25-35) Mean Corpuscular Hemoglobin Concent 31 g/dL (31-37) Red Cell Distribution Width 16.6 % (11.5-14.5) Platelet Count 142 x10^3/uL (140-400) Neutrophils (%) (Auto) 83 % (31-73) Lymphocytes (%) (Auto) 8 % (24-48) Monocytes (%) (Auto) 8 % (0-9) Eosinophils (%) (Auto) 1 % (0-3) Basophils (%) (Auto) 0 % (0-3) Neutrophils # (Auto) 8.5 x10^3/uL (1.8-7.7) Lymphocytes # (Auto) 0.8 x10^3/uL (1.0-4.8) Monocytes # (Auto) 0.8 x10^3/uL (0.0-1.1) Eosinophils # (Auto) 0.1 x10^3/uL (0.0-0.7) Basophils # (Auto) 0.0 x10^3/uL (0.0-0.2) Sodium Level 142 mmol/L (136-145) Potassium Level 3.7 mmol/L (3.5-5.1) Chloride Level 102 mmol/L (98-107) Carbon Dioxide Level 35 mmol/L (21-32) Anion Gap 5 (6-14) Blood Urea Nitrogen 28 mg/dL (7-20) Creatinine 0.8 mg/dL (0.6-1.0) Estimated GFR (Cockcroft-Gault) 67.8 Glucose Level 112 mg/dL (70-99) Calcium Level 9.0 mg/dL (8.5-10.1) Microbiology 01/04/19 Blood Culture - Preliminary, Resulted NO GROWTH AFTER 4 DAYS 01/04/19 Urine Culture - Final, Complete 01/04/19 Urine Culture Result 1 (NIKOLAS) - Final, Complete Medications Current Medications Albuterol/ Ipratropium (Duoneb) 3 ml 1X ONCE NEB Last administered on at 10:45; Start 01/04/19 at 10:45; Stop 01/04/19 at 10:46; Status DC Furosemide (Lasix) 40 mg 1X ONCE IVP Last administered on 01/04/19at 11:07; Start 01/04/19 at 10:45; Stop 01/04/19 at 10:46; Status DC Heparin Sodium/ Dextrose 500 ml @ 16.3 mls/hr CONT PRN IV protocol Last administered on 01/04/19at 13:30; Start 01/04/19 at 11:45; Stop 01/05/19 at 11:04; Status DC Heparin Sodium (Porcine) (Heparin Sodium) 1,700 unit PRN Q6HRS PRN IV FOR UFH LEVEL LESS THAN 0.2; Start 01/04/19 at 11:45; Stop 01/05/19 at 11:04; Status DC Ondansetron HCl (Zofran) 4 mg PRN Q8HRS PRN IV NAUSEA/VOMITING; Start 01/04/19 at 11:45; Stop 01/05/19 at 11:44; Status DC Acetaminophen (Tylenol) 650 mg PRN Q4HRS PRN PO FEVER; Start 01/04/19 at 11:45; Stop 01/05/19 at 11:44; Status DC Nitroglycerin (Nitrostat) 0.4 mg PRN Q5MIN PRN SL CHEST PAIN; Start 01/04/19 at 11:45; Stop 01/04/19 at 18:59; Status DC Albuterol/ Ipratropium (Duoneb) 3 ml RTQID NEB Last administered on 01/05/19at 11:43; Start 01/04/19 at 12:00; Stop 01/05/19 at 11:59; Status DC Heparin Sodium (Porcine) (Heparin Sodium) 4,000 unit 1X ONCE IV Last administered on 01/04/19at 13:28; Start 01/04/19 at 13:30; Stop 01/04/19 at 13:31; Status DC Carvedilol (Coreg) 6.25 mg BIDWMEALS PO Last administered on 01/08/19at 17:33; Start 01/04/19 at 17:00 Aspirin (Ede Aspirin) 325 mg 1X ONCE PO Last administered on 01/04/19at 15:17; Start 01/04/19 at 13:15; Stop 01/04/19 at 13:47; Status DC Aspirin (Children'S Aspirin) 81 mg DAILYWBKFT PO Last administered on 01/08/19at 08:13; Start 01/05/19 at 08:00 Alprazolam (Xanax) 0.5 mg BID PO Last administered on 01/06/19 07:56; Start 01/04/19 at 21:00; Stop 01/06/19 at 10:19; Status DC Fentanyl (Duragesic 12mcg/ Hr Patch) 1 patch Q3DAYS TD ; Start 01/05/19 at 09:00; Stop 01/04/19 at 18:59; Status DC Pregabalin (Lyrica) 75 mg BID PO Last administered on 01/06/19 07:57; Start 01/04/19 at 21:00; Stop 01/06/19 at 10:19; Status DC Acetaminophen/ Hydrocodone Bitart (Lortab 5/325) 1 tab PRN BID PRN PO PAIN Last administered on 01/08/19 21:37; Start 01/04/19 at 13:15 Pantoprazole Sodium (Protonix) 40 mg DAILY PO Last administered on 01/08/19 08:13; Start 01/05/19 at 09:00 Hydroxychloroquine Sulfate (Plaquenil) 200 mg BID PO Last administered on 01/08/19 21:37; Start 01/04/19 at 21:00 Sertraline HCl (Zoloft) 100 mg DAILY PO Last administered on 01/06/19 07:57; Start 01/05/19 at 09:00; Stop 01/06/19 at 10:19; Status DC Zolpidem Tartrate (Ambien) 5 mg PRN QHS PRN PO INSOMNIA; Start 01/04/19 at 13:15; Stop 01/07/19 at 10:27; Status DC Ondansetron HCl (Zofran Odt) 4 mg PRN Q6HRS PRN PO NAUSEA Last administered on 01/06/19 07:59; Start 01/04/19 at 13:15 Vitamin D (Vitamin D3) 1,000 unit DAILY PO Last administered on 01/08/19 08:12; Start 01/05/19 at 09:00 Albuterol Sulfate (Ventolin Neb Soln) 2.5 mg PRN Q4HRS PRN NEB WHEEZING Last administered on 01/09/19 03:49; Start 01/04/19 at 13:15 Fentanyl (Duragesic 12mcg/ Hr Patch) 1 patch Q3DAYS TD Last administered on 01/07/19at 09:06; Start 01/04/19 at 19:00; Stop 01/08/19 at 10:07; Status DC Nitroglycerin (Nitrostat) 0.4 mg PRN Q5MIN PRN SL CHEST PAIN; Start 01/04/19 at 19:00; Stop 01/05/19 at 18:59; Status DC Cefepime HCl (Maxipime) 1 gm Q12HR IVP ; Start 01/04/19 at 21:00; Stop at 20:40; Status DC Vancomycin HCl (Vanco Per Pharmacy) 1 each 1X PRN PRN MC SEE COMMENTS Last administered on 01/04/19at 21:25; Start 01/04/19 at 19:45; Stop 01/05/19 at 07:50; Status DC Vancomycin HCl 1.75 gm/Sodium Chloride 500 ml @ 250 mls/hr 1X ONCE IV ; Start 01/04/19 at 20:45; Stop 01/04/19 at 22:44; Status Cancel Cefepime HCl (Maxipime) 1 gm QHS IVP Last administered on 01/04/19at 23:17; Start 01/04/19 at 21:00; Stop 01/05/19 at 09:49; Status DC Vancomycin HCl 1.5 gm/Sodium Chloride 500 ml @ 250 mls/hr 1X ONCE IV Last administered on 01/04/19at 21:19; Start 01/04/19 at 21:00; Stop 01/04/19 at 22:59; Status DC Info (Anti-Coagulation Monitoring By Pharmacy) 1 each PRN DAILY PRN MC SEE COMMENTS Last administered on 01/05/19at 10:49; Start 01/04/19 at 21:30; Stop 01/08/19 at 10:59; Status DC Vancomycin HCl 1 gm/Sodium Chloride 250 ml @ 250 mls/hr Q48H IV ; Start 01/06/19 at 21:00; Stop 01/05/19 at 10:30; Status DC Vancomycin HCl (Vanco Per Pharmacy) 1 each PRN DAILY PRN MC SEE COMMENTS Last administered on 01/06/19at 23:25; Start 01/05/19 at 07:45; Stop 01/08/19 at 10:59; Status DC Cefepime HCl (Maxipime) 1 gm BID IVP Last administered on 01/07/19at 22:21; Start 01/05/19 at 10:00; Stop 01/08/19 at 07:11; Status DC Vancomycin HCl 1 gm/Sodium Chloride 250 ml @ 250 mls/hr QHS IV Last administered on 01/05/19at 21:15; Start 01/05/19 at 21:00; Stop 01/06/19 at 22:44; Status DC Vancomycin HCl (Vancomycin Trough Level) 1 each 1X ONCE MC Last administered on 01/06/19at 20:30; Start 01/06/19 at 20:30; Stop 01/06/19 at 20:31; Status DC Enoxaparin Sodium (Lovenox 40mg Syringe) 40 mg Q24H SQ Last administered on 01/08/19at 12:25; Start 01/05/19 at 12:00 Magnesium Sulfate 50 ml @ 25 mls/hr 1X ONCE IV Last administered on 01/05/19at 12:32; Start 01/05/19 at 11:15; Stop 01/05/19 at 13:14; Status DC Alprazolam (Xanax) 0.25 mg PRN BID PRN PO ANXIETY / AGITATION; Start 01/06/19 at 10:30; Stop 01/07/19 at 10:27; Status DC Pregabalin (Lyrica) 50 mg BID PO ; Start 01/06/19 at 11:00; Stop 01/06/19 at 11:04; Status DC Mirtazapine (Remeron) 15 mg QHS PO Last administered on 01/06/19at 21:21; Start 01/06/19 at 21:00; Stop 01/07/19 at 10:27; Status DC Pregabalin (Lyrica) 50 mg BID PO Last administered on 01/08/19at 08:12; Start 01/06/19 at 21:00; Stop 01/08/19 at 10:01; Status DC Vancomycin HCl 1.25 gm/Sodium Chloride 250 ml @ 167 mls/hr Q24H IV Last admin istered on 01/07/19at 22:21; Start 01/06/19 at 23:00; Stop 01/08/19 at 07:11; Status DC Vancomycin HCl (Vancomycin Trough Level) 1 each 1X ONCE MC ; Start 01/08/19 at 22:30; Stop 01/08/19 at 11:06; Status DC Mirtazapine (Remeron) 7.5 mg QHS PO Last administered on 01/08/19at 21:38; Start 01/07/19 at 21:00 Lactobacillus Rhamnosus (Culturelle) 1 cap BID PO Last administered on 01/08/19at 08:13; Start 01/07/19 at 21:00; Stop 01/08/19 at 11:05; Status DC Amlodipine Besylate (Norvasc) 5 mg DAILY PO Last administered on 01/08/19at 08:13; Start 01/07/19 at 18:00 Ceftriaxone Sodium (Rocephin) 2 gm Q24H IVP Last administered on 01/08/19at 08:11; Start 01/08/19 at 07:30 Pregabalin (Lyrica) 25 mg BID PO Last administered on 01/08/19at 21:37; Start 01/08/19 at 21:00 Active Scripts Active Prednisone 20 Mg Tablet 30 Mg PO DAILY 4 Days Aspirin Ec (Aspirin) 81 Mg Tablet. 81 Mg PO DAILYWBKFT Amox Tr-K Clv 875-125 Mg Tab (Amoxicillin/Potassium Clav) 1 Each Tablet 1 Tab PO BID Reported Senna (Sennosides) 8.6 Mg Tablet 8.6 Mg PO BID Zoloft (Sertraline Hcl) 100 Mg Tablet 100 Mg PO DAILY Amlodipine Besylate 5 Mg Tablet 5 Mg PO DAILY Coreg (Carvedilol) 25 Mg Tablet 25 Mg PO BID Lidocaine 1 Each Adh..patch 1 Each TP DAILY FENTANYL 12mcg/hr (Fentanyl) 1 Each Patch.td72 1 Patch TD Q72H Xanax (Alprazolam) 0.5 Mg Tablet 1 Tab PO BID Lyrica (Pregabalin) 75 Mg Capsule 75 Mg PO BID Omeprazole 20 Mg Capsule.dr 20 Mg PO BID Duoneb 0.5-3(2.5) Mg/3 Ml (Albuterol/Ipratropium) 3 Ml Ampul.neb 3 Ml NEB PRN Q4HRS PRN Ambien (Zolpidem Tartrate) 5 Mg Tablet 5 Mg PO PRN QHS PRN Hydrocodone-Apap 5-325 (Hydrocodone Bit/Acetaminophen) 1 Tab Tablet 1 Tab PO PRN Q8HRS PRN Vitamin D (Cholecalciferol (Vitamin D3)) 1,000 Unit Capsule 1 Cap PO DAILY Advair 250-50 Diskus (Fluticasone/Salmeterol) 1 Each Disk.w.dev 1 Puff IH BID Multi-Day Vitamins (Multivitamin) 1 Each Tablet 1 Tab PO DAILY Colace (Docusate Sodium) 100 Mg Capsule 100 Mg PO BID Vitals/I & O Vital Sign - Last 24 Hours 01/08/19 01/08/19 01/08/19 01/08/19 10:53 15:27 17:33 19:20 Temp 98.7 98.6 98.3 98.7 98.6 98.3 Pulse 78 84 84 82 Resp 20 20 22 B/P (MAP) 102/45 (64) 160/59 (92) 160/59 139/69 (92) Pulse Ox 97 96 98 O2 Delivery Nasal Cannula Nasal Cannula Nasal Cannula O2 Flow Rate 4.0 4.0 4.0 01/08/19 01/08/19 01/08/19 01/09/19 20:00 22:37 23:15 03:15 Temp 98.6 99.4 98.6 99.4 Pulse 81 88 Resp 20 20 B/P (MAP) 162/69 (100) 163/66 (98) Pulse Ox 98 98 96 O2 Delivery Nasal Cannula Nasal Cannula Nasal Cannula Nasal Cannula O2 Flow Rate 4.0 4.0 4.0 4.0 01/09/19 01/09/19 01/09/19 03:49 06:57 10:13 Temp 98.6 99.0 98.6 99.0 Pulse 91 101 Resp 20 20 B/P (MAP) 160/72 (101) 185/81 (115) Pulse Ox 96 99 O2 Delivery Nasal Cannula Nasal Cannula Nasal Cannula O2 Flow Rate 4.0 4.0 4.0 Intake and Output 01/08/19 01/08/19 01/09/19 15:00 23:00 07:00 Intake Total 220 ml 120 ml 400 ml Output Total 400 ml 450 ml Balance 220 ml -280 ml -50 ml KARAN KIMBLE MD Jan 09, 2019 10:32
--- NOTE | 2019-01-09 10:36 | NUR ---
SS following up with discharge planning. No discharge needs noted at this time. Pt is from home with caregiver and is currently requiring oxygen. SS will continue to follow for discharge planning.
[2019-01-09] MEDS ORDERED: ALBUTEROL SULFATE 2.5 MG/3 ML NEBU. NEB PRN (10:45)
[2019-01-09] MEDS: cefTRIAXone IV Push 2 GM VIAL. IVP SCH (10:49)
[2019-01-09] MEDS: HYDROcodone/APAP 5/325MG 1 TAB TABLET PO PRN (10:51)
[2019-01-09] MEDS: PREGABALIN 25 MG CAPSULE PO SCH ×2 (10:55→20:47)
[2019-01-09] MEDS: CHOLECALCIFEROL (VITAMIN D3) 1,000 UNIT TABLET PO SCH (10:55)
[2019-01-09] MEDS: ASPIRIN CHEWABLE 81 MG TABLET. PO SCH (10:56)
[2019-01-09] MEDS: PANTOPRAZOLE 40 MG TABLET.DR. PO SCH (10:56)
[2019-01-09] MEDS: HYDROXYCHLOROQUINE 200 MG TABLET PO SCH ×2 (10:56→20:47)
[2019-01-09] MEDS ORDERED: amLODIPine BESYLATE 5 MG TABLET PO ONE (11:00)
--- NOTE | 2019-01-09 11:00 | PDOC ---
CARDIO Progress Notes Date and Time Date of Service 01/09/2019 Time of Evaluation 1040 Subjective Subjective: No Chest Pain, No Palpitations, Other (currently SOA) Vitals Vitals Vital Signs Date Time Temp Pulse Resp B/P (MAP) Pulse Ox O2 Delivery O2 Flow Rate FiO2 01/09/19 10:13 99.0 101 20 185/81 (115) 99 Nasal Cannula 4.0 99.0 Weight Weight [ ] Input and Output Intake and Output Intake and Output 01/09/19 07:00 Intake Total 740 ml Output Total 850 ml Balance -110 ml Intake Oral 740 ml Output Urine Total 850 ml Laboratory Labs Laboratory Tests Test 01/08/19 20:46 01/09/19 05:20 Glucose (Fingerstick) 189 mg/dL (70-99) White Blood Count 10.3 x10^3/uL (4.0-11.0) Red Blood Count 3.93 x10^6/uL (3.50-5.40) Hemoglobin 9.4 g/dL (12.0-15.5) Hematocrit 30.6 % (36.0-47.0) Mean Corpuscular Volume 78 fL (79-100) Mean Corpuscular Hemoglobin 24 pg (25-35) Mean Corpuscular Hemoglobin Concent 31 g/dL (31-37) Red Cell Distribution Width 16.6 % (11.5-14.5) Platelet Count 142 x10^3/uL (140-400) Neutrophils (%) (Auto) 83 % (31-73) Lymphocytes (%) (Auto) 8 % (24-48) Monocytes (%) (Auto) 8 % (0-9) Eosinophils (%) (Auto) 1 % (0-3) Basophils (%) (Auto) 0 % (0-3) Neutrophils # (Auto) 8.5 x10^3/uL (1.8-7.7) Lymphocytes # (Auto) 0.8 x10^3/uL (1.0-4.8) Monocytes # (Auto) 0.8 x10^3/uL (0.0-1.1) Eosinophils # (Auto) 0.1 x10^3/uL (0.0-0.7) Basophils # (Auto) 0.0 x10^3/uL (0.0-0.2) Sodium Level 142 mmol/L (136-145) Potassium Level 3.7 mmol/L (3.5-5.1) Chloride Level 102 mmol/L (98-107) Carbon Dioxide Level 35 mmol/L (21-32) Anion Gap 5 (6-14) Blood Urea Nitrogen 28 mg/dL (7-20) Creatinine 0.8 mg/dL (0.6-1.0) Estimated GFR (Cockcroft-Gault) 67.8 Glucose Level 112 mg/dL (70-99) Calcium Level 9.0 mg/dL (8.5-10.1) Microbiology Micro Microbiology 01/04/19 Blood Culture - Preliminary, Resulted NO GROWTH AFTER 4 DAYS 01/04/19 Urine Culture - Final, Complete 01/04/19 Urine Culture Result 1 (NIKOLAS) - Final, Complete Physical Exam HEENT: Neck Supple W Full Motion Chest: Symmetric LUNGS: Other (diminished with faint wheeze) Heart: S1S2, RRR (SR), murmurs (3/6 cpial diastolic murmur ) Abdomen: Soft N/T Extremities: No Edema, No Calf Tenderness Neurology: alert, follow commands, other (periods of confusion) Assessment Assessment 1. Acute on chronic respiratory failure with underlying AECOPD, CHF, and possible aspiration 2. Acute on chronic diastolic CHF: preserved EF 3. NSTEMI: peaked troponin at 3, likely demand mediated, type 2 4. Sepsis with bacteremia and possible UTI. ID following 5. HTN: labile 6. 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 intolerant to statins 7. SSS s/p PPM 8. 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 Metabolic encephalopathy: better 9. Hx of RA Recommendations 1. ASA. Statin, continue coreg. Increase norvasc. CXR today. albuterol. Lasix 2. Outpt stress test. 3. WEN is a consideration if ID deemed it warranted. 4. Supportive care EMANUEL KELLEY APRN Jan 09, 2019 11:00
[2019-01-09] MEDS: IPRATRPIUM/ALBUTEROL 0.5/2.5MG 3 ML NEBU. NEB SCH ×3 (11:23→19:31)
[2019-01-09] MEDS ORDERED: POTASSIUM CHLORIDE 20 MEQ TABLET.ER. PO ONE (11:45)
[2019-01-09] MEDS ORDERED: FUROSEMIDE 40 MG/4 ML VIAL. IVP ONE (11:45)
--- NOTE | 2019-01-09 12:13 | RAD ---
CHEST AP ONLY Clinical Indication: Shortness of breath Comparison: AP chest, 3 days ago. Findings: Left chest dual-chamber pacer. Atherosclerotic thoracic aorta. Cardiac size upper limits of normal. Dense mitral annular calcification. Increased interstitial markings are unchanged, may be chronic. Bilateral perihilar airspace opacities are unchanged. Right basilar airspace opacities are mildly worse. Cannot exclude trace left pleural effusion. There is no pneumothorax. Bones appear stable. IMPRESSION: 1. Right basilar airspace disease is mildly worse. Bilateral perihilar opacities are unchanged. 2. Small left pleural effusion. 3. Increased interstitial markings are unchanged. Electronically signed by: Mehran Resendiz MD (01/09/2019 12:10 PM) [id number]
[2019-01-09] MEDS: ENOXAPARIN 40 MG/0.4 ML SYRINGE. SQ SCH (13:52)
[2019-01-09 14:18] VITALS: BP 139/57
[2019-01-09 18:02] VITALS: BP 141/47
[2019-01-09] MEDS: CARVEDILOL 6.25 MG TABLET. PO SCH (18:52)
[2019-01-09] MEDS: MIRTAZAPINE 15 MG TABLET PO SCH (20:48)
[2019-01-09 23:04] VITALS: BP 155/65
[2019-01-10] MEDS: HYDROcodone/APAP 5/325MG 1 TAB TABLET PO PRN ×3 (02:09→22:10)
[2019-01-10 03:09] VITALS: BP 140/49
[2019-01-10 07:00] VITALS: BP 145/64
[2019-01-10] MEDS: IPRATRPIUM/ALBUTEROL 0.5/2.5MG 3 ML NEBU. NEB SCH ×4 (07:23→21:23)
--- NOTE | 2019-01-10 08:34 | PDOC ---
Infectious Disease Note Subjective: Subjective pt says doing ok still sob has some back discomfort No fevers no chills denies any n/v/d/abdo pain Vital Signs: Vital Signs Vital Signs Date Time Temp Pulse Resp B/P (MAP) Pulse Ox O2 Delivery O2 Flow Rate FiO2 01/10/19 07:23 93 Nasal Cannula 3.0 01/10/19 07:00 98.8 81 18 145/64 (91) 98.8 Physical Exam: PHYSICAL EXAM GENERAL: Asleep HEENT: Oral cavity had pink and moist. Dentures in place. NECK: Supple. LUNGS: Diminished aeration, nonlabored. HEART: S1 and S2 regular. Pacemaker. ABDOMEN: Obese, soft and nontender with bowel sounds present. GENITOURINARY: Gray in place. EXTREMITIES: No gross edema or cyanosis. SKIN: Warm to touch, no signs of rash. Medications: Inpatient Meds: Current Medications Medications (Trade) Dose Ordered Sig/Lindsey Start Time Stop Time Status Last Admin Dose Admin Acetaminophen (Tylenol) 650 mg PRN Q4HRS PRN 01/04/19 11:45 01/05/19 11:44 DC Acetaminophen/ Hydrocodone Bitart (Lortab 5/325) 1 tab PRN BID PRN 01/04/19 13:15 01/10/19 02:09 1 TAB Albuterol Sulfate (Ventolin Neb Soln) 2.5 mg PRN Q4HRS PRN 01/09/19 10:45 Albuterol/ Ipratropium (Duoneb) 3 ml RTQID 01/09/19 12:00 01/10/19 07:23 3 ML Alprazolam (Xanax) 0.25 mg PRN BID PRN 01/06/19 10:30 01/07/19 10:27 DC Amlodipine Besylate (Norvasc) 5 mg 1X ONCE 01/09/19 11:00 01/09/19 11:04 DC 01/09/19 11:00 5 MG Aspirin (Ede Aspirin) 325 mg 1X ONCE 01/04/19 13:15 01/04/19 13:47 DC 01/04/19 15:17 325 MG Aspirin (Children'S Aspirin) 81 mg DAILYWBKFT 01/05/19 08:00 01/09/19 10:56 81 MG Carvedilol (Coreg) 6.25 mg BIDWMEALS 01/09/19 17:00 01/09/19 18:52 6.25 MG Cefepime HCl (Maxipime) 1 gm BID 01/05/19 10:00 01/08/19 07:11 DC 01/07/19 22:21 1 GM Ceftriaxone Sodium (Rocephin) 2 gm Q24H 01/08/19 07:30 01/09/19 10:49 2 GM Enoxaparin Sodium (Lovenox 40mg Syringe) 40 mg Q24H 01/05/19 12:00 01/09/19 13:52 40 MG Fentanyl (Duragesic 12mcg/ Hr Patch) 1 patch Q3DAYS 01/04/19 19:00 01/08/19 10:07 DC 01/07/19 09:06 1 PATCH Furosemide (Lasix) 40 mg 1X ONCE 01/09/19 11:45 01/09/19 11:46 DC 01/09/19 13:49 40 MG Heparin Sodium (Porcine) (Heparin Sodium) 4,000 unit 1X ONCE 01/04/19 13:30 01/04/19 13:31 DC 01/04/19 13:28 4,000 UNIT Heparin Sodium/ Dextrose 500 ml @ 16.3 mls/hr CONT PRN 01/04/19 11:45 01/05/19 11:04 DC 01/04/19 13:30 16.3 MLS/HR Hydroxychloroquine Sulfate (Plaquenil) 200 mg BID 01/04/19 21:00 01/09/19 20:47 200 MG Info (Anti-Coagulation Monitoring By Pharmacy) 1 each PRN DAILY PRN 01/04/19 21:30 01/08/19 10:59 DC 01/05/19 10:49 1 EACH Lactobacillus Rhamnosus (Culturelle) 1 cap BID 01/07/19 21:00 01/08/19 11:05 DC 01/08/19 08:13 1 CAP Magnesium Sulfate 50 ml @ 25 mls/hr 1X ONCE 01/05/19 11:15 01/05/19 13:14 DC 01/05/19 12:32 25 MLS/HR Mirtazapine (Remeron) 7.5 mg QHS 01/07/19 21:00 01/09/19 20:48 7.5 MG Nitroglycerin (Nitrostat) 0.4 mg PRN Q5MIN PRN 01/04/19 19:00 01/05/19 18:59 DC Ondansetron HCl (Zofran Odt) 4 mg PRN Q6HRS PRN 01/04/19 13:15 01/06/19 07:59 4 MG Ondansetron HCl (Zofran) 4 mg PRN Q8HRS PRN 01/04/19 11:45 01/05/19 11:44 DC Pantoprazole Sodium (Protonix) 40 mg DAILY 01/05/19 09:00 01/09/19 10:56 40 MG Potassium Chloride (Klor-Con) 20 meq 1X ONCE 01/09/19 11:45 01/09/19 11:46 DC 01/09/19 13:50 20 MEQ Pregabalin (Lyrica) 25 mg BID 01/08/19 21:00 01/09/19 20:47 25 MG Sertraline HCl (Zoloft) 100 mg DAILY 01/05/19 09:00 01/06/19 10:19 DC 01/06/19 07:57 100 MG Vancomycin HCl (Vanco Per Pharmacy) 1 each PRN DAILY PRN 01/05/19 07:45 01/08/19 10:59 DC 01/06/19 23:25 1 EACH Vancomycin HCl (Vancomycin Trough Level) 1 each 1X ONCE 01/08/19 22:30 01/08/19 11:06 DC Vancomycin HCl 1.25 gm/Sodium Chloride 250 ml @ 167 mls/hr Q24H 01/06/19 23:00 01/08/19 07:11 DC 01/07/19 22:21 167 MLS/HR Vancomycin HCl 1.5 gm/Sodium Chloride 500 ml @ 250 mls/hr 1X ONCE 01/04/19 21:00 01/04/19 22:59 DC 01/04/19 21:19 250 MLS/HR Vancomycin HCl 1.75 gm/Sodium Chloride 500 ml @ 250 mls/hr 1X ONCE 01/04/19 20:45 01/04/19 22:44 Cancel Vancomycin HCl 1 gm/Sodium Chloride 250 ml @ 250 mls/hr QHS 01/05/19 21:00 01/06/19 22:44 DC 01/05/19 21:15 250 MLS/HR Vitamin D (Vitamin D3) 1,000 unit DAILY 01/05/19 09:00 01/09/19 10:55 1,000 UNIT Zolpidem Tartrate (Ambien) 5 mg PRN QHS PRN 01/04/19 13:15 01/07/19 10:27 DC Labs: Lab Laboratory Tests Test 01/10/19 07:37 Glucose (Fingerstick) 107 mg/dL (70-99) Objective: Assessment: Grp B strep Bacteremia POA 01/04 (2 of 4 bottles) Fever resolved Questionable UTI, POA ,lactobacillus in uc ,likely contaminant h/o MRSA Acute-on chronic respiratory failure. Influenza neg Acute-on chronic CHF SHA - better RA on plaquenil Diabetes Pacemaker encephalopathy ct head no acute changes Plan: Plan of Care cont ceftriaxone for now will deescalate soon to po antibiotics f/u cultures Maintain aspiration precautions d/w EUSEBIO Sprague MD Jan 10, 2019 08:34
[2019-01-10] MEDS: PREGABALIN 25 MG CAPSULE PO SCH ×2 (08:37→22:11)
[2019-01-10] MEDS: PANTOPRAZOLE 40 MG TABLET.DR. PO SCH (08:38)
[2019-01-10] MEDS: CARVEDILOL 6.25 MG TABLET. PO SCH ×2 (08:38→16:17)
[2019-01-10] MEDS: amLODIPine BESYLATE 10 MG TABLET PO SCH (08:39)
[2019-01-10] MEDS: ASPIRIN CHEWABLE 81 MG TABLET. PO SCH (08:40)
[2019-01-10] MEDS: HYDROXYCHLOROQUINE 200 MG TABLET PO SCH ×2 (08:40→22:11)
[2019-01-10] MEDS: CHOLECALCIFEROL (VITAMIN D3) 1,000 UNIT TABLET PO SCH (08:40)
[2019-01-10] MEDS: cefTRIAXone IV Push 2 GM VIAL. IVP SCH (08:40)
[2019-01-10] MEDS ORDERED: FUROSEMIDE 40 MG/4 ML VIAL. IVP ONE (09:15)
[2019-01-10 10:19] LABS: CALCIUM 9.2 mg/dL (8.5-10.1); CREATININE 0.7 mg/dL (0.6-1.0); GFR 79.2; MAGNESIUM 1.7 mg/dL (1.8-2.4); POTASSIUM 3.6 mmol/L (3.5-5.1)
--- NOTE | 2019-01-10 10:42 | PDOC ---
CARDIO Progress Notes Date and Time Date of Service 01/10/2019 Time of Evaluation 0920 Subjective Subjective: No Chest Pain, No Palpitations, Other (SOA better today) Vitals Vitals Vital Signs Date Time Temp Pulse Resp B/P (MAP) Pulse Ox O2 Delivery O2 Flow Rate FiO2 01/10/19 08:39 81 145/64 01/10/19 07:23 93 Nasal Cannula 3.0 01/10/19 07:00 98.8 18 98.8 Weight Weight [ ] Input and Output Intake and Output Intake and Output 01/10/19 07:00 Intake Total 500 ml Output Total 2050 ml Balance -1550 ml Intake Oral 500 ml Output Urine Total 2050 ml Laboratory Labs Laboratory Tests Test 01/10/19 07:37 01/10/19 08:25 Glucose (Fingerstick) 107 mg/dL (70-99) Sodium Level 139 mmol/L (136-145) Potassium Level 3.6 mmol/L (3.5-5.1) Chloride Level 97 mmol/L (98-107) Carbon Dioxide Level 38 mmol/L (21-32) Anion Gap 4 (6-14) Blood Urea Nitrogen 22 mg/dL (7-20) Creatinine 0.7 mg/dL (0.6-1.0) Estimated GFR (Cockcroft-Gault) 79.2 Glucose Level 134 mg/dL (70-99) Calcium Level 9.2 mg/dL (8.5-10.1) Magnesium Level 1.7 mg/dL (1.8-2.4) Microbiology Micro Microbiology 01/04/19 Blood Culture - Final, Complete NO GROWTH AFTER 5 DAYS 01/04/19 Urine Culture - Final, Complete 01/04/19 Urine Culture Result 1 (NIKOLAS) - Final, Complete Physical Exam HEENT: Neck Supple W Full Motion Chest: Symmetric LUNGS: Other (diminished ) Heart: S1S2, RRR (SR), murmurs (3/6 cpial diastolic murmur ) Abdomen: Soft N/T Extremities: No Edema, No Calf Tenderness Neurology: alert, oriented, follow commands Assessment Assessment 1. Acute on chronic respiratory failure with underlying AECOPD, CHF, and possible aspiration 2. Acute on chronic diastolic CHF: preserved EF 3. NSTEMI: peaked troponin at 3, likely demand mediated, type 2 4. Sepsis with bacteremia and possible UTI. ID following 5. HTN: better with lasix and increased norvasc 6. 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 intolerant to statins 7. SSS s/p PPM 8. Moderate mitral stenosis 7. CKD 2 8. Metabolic encephalopathy:improved 9. Hx of RA 10. Contraction alkalosis Recommendations 1. ASA. Statin, continue coreg, norvasc. Lasix 20 mg IV then 20 mg PO daily. Low dose only and PRN. 2. Outpt stress test. 3. WEN is a consideration if ID deemed it warranted. 4. Supportive care 5. Consider for PCSK9i as an outpt. Follow up as outpt. EMANUEL KELLEY CHIEF METER READER Jan 10, 2019 10:42
[2019-01-10 10:43] VITALS: BP 125/52
[2019-01-10] MEDS ORDERED: FUROSEMIDE 20 MG/2 ML VIAL. IVP ONE (10:45)
[2019-01-10] MEDS ORDERED: POTASSIUM CHLORIDE 20 MEQ TABLET.ER. PO ONE (10:45)
--- NOTE | 2019-01-10 11:53 | PDOC ---
PROGRESS NOTES Subjective Subjective sleepy but talks to me. afebrile. not short of breath now. lasix 20 mg iv ordered by cardiology today. cxr report noted Objective Objective Vital Signs Date Time Temp Pulse Resp B/P (MAP) Pulse Ox O2 Delivery O2 Flow Rate FiO2 01/10/19 11:37 97 Nasal Cannula 3.0 01/10/19 10:43 99.0 74 18 125/52 (76) 99.0 Intake and Output 01/10/19 07:00 Intake Total 500 ml Output Total 2050 ml Balance -1550 ml Intake Oral 500 ml Output Urine Total 2050 ml Physical Exam Abdomen: Soft Heart: Regular rate, Normal S1, Normal S2 Extremities: No edema General: Alert HEENT: Atraumatic Lungs: Clear to auscultation Neuro: Normal speech Psych/Mental Status: Mood NL, Other (sleepy) Skin: No rashes Assessment Assessment Problems Non-ST segment elevated myocardial infarction. 2. Acute on chronic diastolic congestive heart failure. better compensated 3. Group B streptococcus bacteremia 4. 5. Hyperlipidemia with statin intolerance. 6. Acute kidney injury. due to dehydration resolved 7. Acute on chronic hypoxic respiratory failure. 8. Fibromyalgia. 9. Chronic pain. 10. Fever. resolved 11. Diarrhea. resolved 12. Anemia of chronic disease with some progression in the anemia. 13. Thrombocytopenia. resolved 14. Chronic obstructive pulmonary disease. 15. Severe protein-calorie malnutrition. 16. Metabolic encephalopathy. diabetes mellitus type 2 with peripheral neuropathy hypertension. bp high moderate mitral stenosis per echo Medical Problems: (1) Acute and chronic respiratory failure Status: Acute (2) CHF exacerbation Status: Acute (3) Elevated troponin Status: Acute Plan Plan of Care continue iv rocephin continue oxygen and nebulizer rx furosemide per cardiology labs tomorrow Comment Review of Relevant I have reviewed the following items lizbeth (where applicable) has been applied. Labs Laboratory Tests Test 01/08/19 20:46 01/09/19 05:20 01/10/19 07:37 01/10/19 08:25 Glucose (Fingerstick) 189 mg/dL (70-99) 107 mg/dL (70-99) White Blood Count 10.3 x10^3/uL (4.0-11.0) Red Blood Count 3.93 x10^6/uL (3.50-5.40) Hemoglobin 9.4 g/dL (12.0-15.5) Hematocrit 30.6 % (36.0-47.0) Mean Corpuscular Volume 78 fL (79-100) Mean Corpuscular Hemoglobin 24 pg (25-35) Mean Corpuscular Hemoglobin Concent 31 g/dL (31-37) Red Cell Distribution Width 16.6 % (11.5-14.5) Platelet Count 142 x10^3/uL (140-400) Neutrophils (%) (Auto) 83 % (31-73) Lymphocytes (%) (Auto) 8 % (24-48) Monocytes (%) (Auto) 8 % (0-9) Eosinophils (%) (Auto) 1 % (0-3) Basophils (%) (Auto) 0 % (0-3) Neutrophils # (Auto) 8.5 x10^3/uL (1.8-7.7) Lymphocytes # (Auto) 0.8 x10^3/uL (1.0-4.8) Monocytes # (Auto) 0.8 x10^3/uL (0.0-1.1) Eosinophils # (Auto) 0.1 x10^3/uL (0.0-0.7) Basophils # (Auto) 0.0 x10^3/uL (0.0-0.2) Sodium Level 142 mmol/L (136-145) 139 mmol/L (136-145) Potassium Level 3.7 mmol/L (3.5-5.1) 3.6 mmol/L (3.5-5.1) Chloride Level 102 mmol/L (98-107) 97 mmol/L (98-107) Carbon Dioxide Level 35 mmol/L (21-32) 38 mmol/L (21-32) Anion Gap 5 (6-14) 4 (6-14) Blood Urea Nitrogen 28 mg/dL (7-20) 22 mg/dL (7-20) Creatinine 0.8 mg/dL (0.6-1.0) 0.7 mg/dL (0.6-1.0) Estimated GFR (Cockcroft-Gault) 67.8 79.2 Glucose Level 112 mg/dL (70-99) 134 mg/dL (70-99) Calcium Level 9.0 mg/dL (8.5-10.1) 9.2 mg/dL (8.5-10.1) Magnesium Level 1.7 mg/dL (1.8-2.4) Laboratory Tests Test 01/10/19 07:37 01/10/19 08:25 Glucose (Fingerstick) 107 mg/dL (70-99) Sodium Level 139 mmol/L (136-145) Potassium Level 3.6 mmol/L (3.5-5.1) Chloride Level 97 mmol/L (98-107) Carbon Dioxide Level 38 mmol/L (21-32) Anion Gap 4 (6-14) Blood Urea Nitrogen 22 mg/dL (7-20) Creatinine 0.7 mg/dL (0.6-1.0) Estimated GFR (Cockcroft-Gault) 79.2 Glucose Level 134 mg/dL (70-99) Calcium Level 9.2 mg/dL (8.5-10.1) Magnesium Level 1.7 mg/dL (1.8-2.4) Microbiology 01/04/19 Blood Culture - Final, Complete NO GROWTH AFTER 5 DAYS 01/04/19 Urine Culture - Final, Complete 01/04/19 Urine Culture Result 1 (NIKOLAS) - Final, Complete Medications Current Medications Albuterol/ Ipratropium (Duoneb) 3 ml 1X ONCE NEB Last administered on 01/04/19at 10:45; Start 01/04/19 at 10:45; Stop 01/04/19 at 10:46; Status DC Furosemide (Lasix) 40 mg 1X ONCE IVP Last administered on 01/04/19at 11:07; Start 01/04/19 at 10:45; Stop 01/04/19 at 10:46; Status DC Heparin Sodium/ Dextrose 500 ml @ 16.3 mls/hr CONT PRN IV protocol Last administered on 01/04/19at 13:30; Start 01/04/19 at 11:45; Stop 01/05/19 at 11:04; Status DC Heparin Sodium (Porcine) (Heparin Sodium) 1,700 unit PRN Q6HRS PRN IV FOR UFH LEVEL LESS THAN 0.2; Start 01/04/19 at 11:45; Stop 01/05/19 at 11:04; Status DC Ondansetron HCl (Zofran) 4 mg PRN Q8HRS PRN IV NAUSEA/VOMITING; Start 01/04/19 at 11:45; Stop 01/05/19 at 11:44; Status DC Acetaminophen (Tylenol) 650 mg PRN Q4HRS PRN PO FEVER; Start 01/04/19 at 11:45; Stop 01/05/19 at 11:44; Status DC Nitroglycerin (Nitrostat) 0.4 mg PRN Q5MIN PRN SL CHEST PAIN; Start 01/04/19 at 11:45; Stop 01/04/19 at 18:59; Status DC Albuterol/ Ipratropium (Duoneb) 3 ml RTQID NEB Last administered on 01/05/19at 11:43; Start 01/04/19 at 12:00; Stop 01/05/19 at 11:59; Status DC Heparin Sodium (Porcine) (Heparin Sodium) 4,000 unit 1X ONCE IV Last administered on 01/04/19at 13:28; Start 01/04/19 at 13:30; Stop 01/04/19 at 13:31; Status DC Carvedilol (Coreg) 6.25 mg BIDWMEALS PO Last administered on 01/08/19at 17:33; Start 01/04/19 at 17:00; Stop 01/09/19 at 10:29; Status DC Aspirin (Ede Aspirin) 325 mg 1X ONCE PO Last administered on 01/04/19at 15:17; Start 01/04/19 at 13:15; Stop 01/04/19 at 13:47; Status DC Aspirin (Children'S Aspirin) 81 mg DAILYWBKFT PO Last administered on 01/10/19at 08:40; Start 01/05/19 at 08:00 Alprazolam (Xanax) 0.5 mg BID PO Last administered on 01/06/19at 07:56; Start 01/04/19 at 21:00; Stop 01/06/19 at 10:19; Status DC Fentanyl (Duragesic 12mcg/ Hr Patch) 1 patch Q3DAYS TD ; Start 01/05/19 at 09:00; Stop 01/04/19 at 18:59; Status DC Pregabalin (Lyrica) 75 mg BID PO Last administered on 01/06/19at 07:57; Start 01/04/19 at 21:00; Stop 01/06/19 at 10:19; Status DC Acetaminophen/ Hydrocodone Bitart (Lortab 5/325) 1 tab PRN BID PRN PO PAIN Last administered on 01/10/19 02:09; Start 01/04/19 at 13:15 Pantoprazole Sodium (Protonix) 40 mg DAILY PO Last administered on 01/10/19 08:38; Start 01/05/19 at 09:00 Hydroxychloroquine Sulfate (Plaquenil) 200 mg BID PO Last administered on 01/10/19 08:40; Start 01/04/19 at 21:00 Sertraline HCl (Zoloft) 100 mg DAILY PO Last administered on 01/06/19 07:57; Start 01/05/19 at 09:00; Stop 01/06/19 at 10:19; Status DC Zolpidem Tartrate (Ambien) 5 mg PRN QHS PRN PO INSOMNIA; Start 01/04/19 at 13:15; Stop 01/07/19 at 10:27; Status DC Ondansetron HCl (Zofran Odt) 4 mg PRN Q6HRS PRN PO NAUSEA Last administered on 01/06/19at 07:59; Start 01/04/19 at 13:15 Vitamin D (Vitamin D3) 1,000 unit DAILY PO Last administered on 01/10/19 08:40; Start 01/05/19 at 09:00 Albuterol Sulfate (Ventolin Neb Soln) 2.5 mg PRN Q4HRS PRN NEB WHEEZING Last administered on 01/09/19 03:49; Start 01/04/19 at 13:15; Stop 01/09/19 at 10:39; Status DC Fentanyl (Duragesic 12mcg/ Hr Patch) 1 patch Q3DAYS TD Last administered on 01/07/19 09:06; Start 01/04/19 at 19:00; Stop 01/08/19 at 10:07; Status DC Nitroglycerin (Nitrostat) 0.4 mg PRN Q5MIN PRN SL CHEST PAIN; Start 01/04/19 at 19:00; Stop 01/05/19 at 18:59; Status DC Cefepime HCl (Maxipime) 1 gm Q12HR IVP ; Start 01/04/19 at 21:00; Stop 1 03/06/18 at 20:40; Status DC Vancomycin HCl (Vanco Per Pharmacy) 1 each 1X PRN PRN MC SEE COMMENTS Last administered on 01/04/19at 21:25; Start 01/04/19 at 19:45; Stop 01/05/19 at 07:50; Status DC Vancomycin HCl 1.75 gm/Sodium Chloride 500 ml @ 250 mls/hr 1X ONCE IV ; Start 01/04/19 at 20:45; Stop 01/04/19 at 22:44; Status Cancel Cefepime HCl (Maxipime) 1 gm QHS IVP Last administered on 01/04/19at 23:17; Start 01/04/19 at 21:00; Stop 01/05/19 at 09:49; Status DC Vancomycin HCl 1.5 gm/Sodium Chloride 500 ml @ 250 mls/hr 1X ONCE IV Last administered on 01/04/19at 21:19; Start 01/04/19 at 21:00; Stop 01/04/19 at 22:59; Status DC Info (Anti-Coagulation Monitoring By Pharmacy) 1 each PRN DAILY PRN MC SEE COMMENTS Last administered on 01/05/19at 10:49; Start 01/04/19 at 21:30; Stop 01/08/19 at 10:59; Status DC Vancomycin HCl 1 gm/Sodium Chloride 250 ml @ 250 mls/hr Q48H IV ; Start 01/06/19 at 21:00; Stop 01/05/19 at 10:30; Status DC Vancomycin HCl (Vanco Per Pharmacy) 1 each PRN DAILY PRN MC SEE COMMENTS Last administered on 01/06/19at 23:25; Start 01/05/19 at 07:45; Stop 01/08/19 at 10:59; Status DC Cefepime HCl (Maxipime) 1 gm BID IVP Last administered on 01/07/19at 22:21; Start 01/05/19 at 10:00; Stop 01/08/19 at 07:11; Status DC Vancomycin HCl 1 gm/Sodium Chloride 250 ml @ 250 mls/hr QHS IV Last administered on 01/05/19at 21:15; Start 01/05/19 at 21:00; Stop 01/06/19 at 22:44; Status DC Vancomycin HCl (Vancomycin Trough Level) 1 each 1X ONCE MC Last administered on 01/06/19at 20:30; Start 01/06/19 at 20:30; Stop 01/06/19 at 20:31; Status DC Enoxaparin Sodium (Lovenox 40mg Syringe) 40 mg Q24H SQ Last administered on 01/09/19at 13:52; Start 01/05/19 at 12:00 Magnesium Sulfate 50 ml @ 25 mls/hr 1X ONCE IV Last administered on 01/05/19at 12:32; Start 01/05/19 at 11:15; Stop 01/05/19 at 13:14; Status DC Alprazolam (Xanax) 0.25 mg PRN BID PRN PO ANXIETY / AGITATION; Start 01/06/19 at 10:30; Stop 01/07/19 at 10:27; Status DC Pregabalin (Lyrica) 50 mg BID PO ; Start 01/06/19 at 11:00; Stop 01/06/19 at 11:04; Status DC Mirtazapine (Remeron) 15 mg QHS PO Last administered on 01/06/19at 21:21; Start 01/06/19 at 21:00; Stop 01/07/19 at 10:27; Status DC Pregabalin (Lyrica) 50 mg BID PO Last administered on 01/08/19at 08:12; Start 01/06/19 at 21:00; Stop 01/08/19 at 10:01; Status DC Vancomycin HCl 1.25 gm/Sodium Chloride 250 ml @ 167 mls/hr Q24H IV Last admi nistered on 01/07/19at 22:21; Start 01/06/19 at 23:00; Stop 01/08/19 at 07:11; Status DC Vancomycin HCl (Vancomycin Trough Level) 1 each 1X ONCE MC ; Start 01/08/19 at 22:30; Stop 01/08/19 at 11:06; Status DC Mirtazapine (Remeron) 7.5 mg QHS PO Last administered on 01/09/19at 20:48; Start 01/07/19 at 21:00 Lactobacillus Rhamnosus (Culturelle) 1 cap BID PO Last administered on at 08:13; Start 01/07/19 at 21:00; Stop 01/08/19 at 11:05; Status DC Amlodipine Besylate (Norvasc) 5 mg DAILY PO Last administered on 01/08/19at 08:13; Start 01/07/19 at 18:00; Stop 01/09/19 at 11:00; Status DC Ceftriaxone Sodium (Rocephin) 2 gm Q24H IVP Last administered on 01/10/19at 08:40; Start 01/08/19 at 07:30 Pregabalin (Lyrica) 25 mg BID PO Last administered on 01/10/19at 08:37; Start 01/08/19 at 21:00 Carvedilol (Coreg) 12.5 mg BIDWMEALS PO ; Start 01/09/19 at 10:30; Stop 01/09/19 at 11:00; Status DC Albuterol/ Ipratropium (Duoneb) 3 ml RTQID NEB Last administered on 01/10/19at 11:36; Start 01/09/19 at 12:00 Albuterol Sulfate (Ventolin Neb Soln) 2.5 mg PRN Q4HRS PRN NEB SHORTNESS OF BREATH; Start 01/09/19 at 10:45 Amlodipine Besylate (Norvasc) 10 mg DAILY PO Last administered on 01/10/19at 08:39; Start 01/10/19 at 09:00 Carvedilol (Coreg) 6.25 mg BIDWMEALS PO Last administered on 01/10/19at 08:38; Start 01/09/19 at 17:00 Amlodipine Besylate (Norvasc) 5 mg 1X ONCE PO Last administered on 01/09/19at 11:00; Start 01/09/19 at 11:00; Stop 01/09/19 at 11:04; Status DC Furosemide (Lasix) 40 mg 1X ONCE IVP Last administered on 01/09/19at 13:49; Start 01/09/19 at 11:45; Stop 01/09/19 at 11:46; Status DC Potassium Chloride (Klor-Con) 20 meq 1X ONCE PO Last administered on 01/09/19at 13:50; Start 01/09/19 at 11:45; Stop 01/09/19 at 11:46; Status DC Furosemide (Lasix) 40 mg 1X ONCE IVP ; Start 01/10/19 at 09:15; Stop 01/10/19 at 09:17; Status DC Furosemide (Lasix) 20 mg 1X ONCE IVP ; Start 01/10/19 at 10:45; Stop 01/10/19 at 10:46; Status DC Potassium Chloride (Klor-Con) 20 meq 1X ONCE PO ; Start 01/10/19 at 10:45; Sto p 01/10/19 at 10:46; Status DC Furosemide (Lasix) 20 mg DAILY PO ; Start 01/11/19 at 09:00 Aspirin (Ecotrin) 81 mg DAILYWBKFT PO ; Start 01/10/19 at 11:00 Active Scripts Active Prednisone 20 Mg Tablet 30 Mg PO DAILY 4 Days Aspirin Ec (Aspirin) 81 Mg Tablet.dr 81 Mg PO DAILYWBKFT Amox Tr-K Clv 875-125 Mg Tab (Amoxicillin/Potassium Clav) 1 Each Tablet 1 Tab PO BID Reported Senna (Sennosides) 8.6 Mg Tablet 8.6 Mg PO BID Zoloft (Sertraline Hcl) 100 Mg Tablet 100 Mg PO DAILY Amlodipine Besylate 5 Mg Tablet 5 Mg PO DAILY Coreg (Carvedilol) 25 Mg Tablet 25 Mg PO BID Lidocaine 1 Each Adh..patch 1 Each TP DAILY FENTANYL 12mcg/hr (Fentanyl) 1 Each Patch.td72 1 Patch TD Q72H Xanax (Alprazolam) 0.5 Mg Tablet 1 Tab PO BID Lyrica (Pregabalin) 75 Mg Capsule 75 Mg PO BID Omeprazole 20 Mg Capsule.dr 20 Mg PO BID Duoneb 0.5-3(2.5) Mg/3 Ml (Albuterol/Ipratropium) 3 Ml Ampul.neb 3 Ml NEB PRN Q4HRS PRN Ambien (Zolpidem Tartrate) 5 Mg Tablet 5 Mg PO PRN QHS PRN Hydrocodone-Apap 5-325 (Hydrocodone Bit/Acetaminophen) 1 Tab Tablet 1 Tab PO PRN Q8HRS PRN Vitamin D (Cholecalciferol (Vitamin D3)) 1,000 Unit Capsule 1 Cap PO DAILY Advair 250-50 Diskus (Fluticasone/Salmeterol) 1 Each Disk.w.dev 1 Puff IH BID Multi-Day Vitamins (Multivitamin) 1 Each Tablet 1 Tab PO DAILY Colace (Docusate Sodium) 100 Mg Capsule 100 Mg PO BID Vitals/I & O Vital Sign - Last 24 Hours 01/09/19 01/09/19 01/09/19 01/09/19 11:51 14:18 15:39 18:02 Temp 98.8 98.2 98.8 98.2 Pulse 75 67 Resp 20 20 B/P (MAP) 139/57 (84) 141/47 (78) Pulse Ox 99 100 99 100 O2 Delivery Nasal Cannula Nasal Cannula Nasal Cannula Nasal Cannula O2 Flow Rate 4.0 4.0 4.0 4.0 01/09/19 01/09/19 01/09/19 01/09/19 18:52 19:32 20:00 23:04 Temp 99.2 99.2 Pulse 67 81 Resp 22 B/P (MAP) 141/47 155/65 (95) Pulse Ox 98 98 O2 Delivery Nasal Cannula Nasal Cannula Nasal Cannula O2 Flow Rate 4.0 4.0 3.0 01/10/19 01/10/19 01/10/19 01/10/19 02:09 03:09 03:11 07:00 Temp 99.1 98.8 99.1 98.8 Pulse 79 81 Resp 20 18 18 18 B/P (MAP) 140/49 (79) 145/64 (91) Pulse Ox 98 96 96 93 O2 Delivery Nasal Cannula Nasal Cannula Nasal Cannula Nasal Cannula O2 Flow Rate 3.0 3.0 3.0 3.0 01/10/19 01/10/19 01/10/19 01/10/19 07:23 08:38 08:39 10:43 Temp 99.0 99.0 Pulse 81 81 74 Resp 18 B/P (MAP) 145/64 145/64 125/52 (76) Pulse Ox 93 96 O2 Delivery Nasal Cannula Nasal Cannula O2 Flow Rate 3.0 3.0 01/10/19 11:37 Pulse Ox 97 O2 Delivery Nasal Cannula O2 Flow Rate 3.0 Intake and Output 01/09/19 01/09/19 01/10/19 15:00 23:00 07:00 Intake Total 500 ml Output Total 1250 ml 800 ml Balance -750 ml -800 ml KARAN KIMBLE MD Jan 10, 2019 11:53
[2019-01-10] MEDS ORDERED: MAGNESIUM SULFATE 2GM 50 ML IV ONE (12:30)
[2019-01-10] MEDS: ENOXAPARIN 40 MG/0.4 ML SYRINGE. SQ SCH (13:05)
[2019-01-10] MEDS: SERTRALINE 50 MG TABLET. PO SCH (13:05)
[2019-01-10 15:00] VITALS: BP 137/68
[2019-01-10] MEDS ORDERED: LACTULOSE 20 GM/30 ML SOLUTION. PO ONE ×2 (16:00→17:00)
[2019-01-10] MEDS: ASPIRIN ENTERIC COATED 81 MG TABLET.DR. PO SCH (16:17)
[2019-01-10 19:04] VITALS: BP 132/50
[2019-01-10 22:38] VITALS: BP 134/55
[2019-01-11 03:10] VITALS: BP 152/65
[2019-01-11 04:13] LABS: BASO # 0.1 x10^3/uL (0.0-0.2); BASO % 0 % (0-3); EOS # 0.1 x10^3/uL (0.0-0.7); EOS % 1 % (0-3); HEMATOCRIT 31.9 % (36.0-47.0); HEMOGLOBIN 9.8 g/dL (12.0-15.5); LYMPH # 0.5 x10^3/uL (1.0-4.8); LYMPH % 4 % (24-48); MEAN CORPUSCULAR HEMOGLOBIN 24 pg (25-35); MEAN CORPUSCULAR HGB CONC 31 g/dL (31-37); MEAN CORPUSCULAR VOLUME 78 fL (79-100); MONO # 0.8 x10^3/uL (0.0-1.1); MONO % 6 % (0-9); NEUT # 11.7 x10^3/uL (1.8-7.7); NEUT % 89 % (31-73); PLATELET COUNT 219 x10^3/uL (140-400); RED BLOOD COUNT 4.12 x10^6/uL (3.50-5.40); RED CELL DISTRIBUTION WIDTH 16.9 % (11.5-14.5); WHITE BLOOD COUNT 13.2 x10^3/uL (4.0-11.0)
[2019-01-11 04:24] LABS: CALCIUM 9.5 mg/dL (8.5-10.1); CREATININE 0.8 mg/dL (0.6-1.0); GFR 67.8; MAGNESIUM 2.1 mg/dL (1.8-2.4)
[2019-01-11 04:31] LABS: POTASSIUM 2.8 mmol/L (3.5-5.1)
[2019-01-11] MEDS: HYDROcodone/APAP 5/325MG 1 TAB TABLET PO PRN (04:54)
[2019-01-11] MEDS ORDERED: POTASSIUM CHLORIDE 20 MEQ TABLET.ER. PO ONE ×2 (07:00→12:30)
[2019-01-11] MEDS: IPRATRPIUM/ALBUTEROL 0.5/2.5MG 3 ML NEBU. NEB SCH ×4 (07:08→19:34)
[2019-01-11 07:12] VITALS: BP 144/52
[2019-01-11] MEDS: cefTRIAXone IV Push 2 GM VIAL. IVP SCH (08:16)
[2019-01-11] MEDS: MULTIVITAMIN I-VITE TABLET. PO SCH (08:16)
[2019-01-11] MEDS: ASPIRIN ENTERIC COATED 81 MG TABLET.DR. PO SCH (08:17)
[2019-01-11] MEDS: SERTRALINE 50 MG TABLET. PO SCH (08:18)
[2019-01-11] MEDS: PREGABALIN 25 MG CAPSULE PO SCH ×2 (08:18→22:15)
[2019-01-11] MEDS: ONDANSETRON ODT 4 MG TAB.RAPDIS. PO PRN (08:18)
[2019-01-11] MEDS: ASCORBIC ACID 500 MG TABLET PO SCH (08:18)
[2019-01-11] MEDS: CHOLECALCIFEROL (VITAMIN D3) 1,000 UNIT TABLET PO SCH (08:18)
[2019-01-11] MEDS: PANTOPRAZOLE 40 MG TABLET.DR. PO SCH (08:18)
[2019-01-11] MEDS: POTASSIUM CHLORIDE 20 MEQ TABLET.ER. PO SCH (08:18)
[2019-01-11] MEDS: CARVEDILOL 6.25 MG TABLET. PO SCH ×2 (08:19→18:17)
[2019-01-11] MEDS: HYDROXYCHLOROQUINE 200 MG TABLET PO SCH ×2 (08:19→22:12)
[2019-01-11] MEDS: amLODIPine BESYLATE 10 MG TABLET PO SCH (08:19)
--- NOTE | 2019-01-11 08:54 | PDOC ---
Infectious Disease Note Subjective: Subjective pt says doing ok still sob No fevers / chills/n/v/d/abdo pain Vital Signs: Vital Signs Vital Signs Date Time Temp Pulse Resp B/P (MAP) Pulse Ox O2 Delivery O2 Flow Rate FiO2 01/11/19 08:19 89 144/52 01/11/19 07:12 98.6 18 99 Nasal Cannula 3.0 98.6 Physical Exam: PHYSICAL EXAM GENERAL: Asleep HEENT: Oral cavity had pink and moist. Dentures in place. NECK: Supple. LUNGS: Diminished aeration, nonlabored. HEART: S1 and S2 regular. Pacemaker. ABDOMEN: Obese, soft and nontender with bowel sounds present. GENITOURINARY: Gray in place. EXTREMITIES: No gross edema or cyanosis. SKIN: Warm to touch, no signs of rash. Medications: Inpatient Meds: Current Medications Medications (Trade) Dose Ordered Sig/Lindsey Start Time Stop Time Status Last Admin Dose Admin Acetaminophen (Tylenol) 650 mg PRN Q4HRS PRN 01/04/19 11:45 01/05/19 11:44 DC Acetaminophen/ Hydrocodone Bitart (Lortab 5/325) 1 tab PRN BID PRN 01/04/19 13:15 01/11/19 04:54 Albuterol Sulfate (Ventolin Neb Soln) 2.5 mg PRN Q4HRS PRN 01/09/19 10:45 Albuterol/ Ipratropium (Duoneb) 3 ml RTQID 01/09/19 12:00 01/11/19 07:08 Alprazolam (Xanax) 0.25 mg PRN BID PRN 01/06/19 10:30 01/07/19 10:27 DC Amlodipine Besylate (Norvasc) 5 mg 1X ONCE 01/09/19 11:00 01/09/19 11:04 DC 01/09/19 11:00 Ascorbic Acid (Vitamin C) 500 mg DAILY 01/11/19 09:00 01/11/19 08:18 Aspirin (Ede Aspirin) 325 mg 1X ONCE 01/04/19 13:15 01/04/19 13:47 DC 01/04/19 15:17 Aspirin (Children'S Aspirin) 81 mg DAILYWBKFT 01/05/19 08:00 01/10/19 13:38 DC 01/10/19 08:40 Aspirin (Ecotrin) 81 mg DAILYWBKFT 01/10/19 11:00 01/11/19 08:17 Carvedilol (Coreg) 6.25 mg BIDWMEALS 01/09/19 17:00 01/11/19 08:19 Cefepime HCl (Maxipime) 1 gm BID 01/05/19 10:00 01/08/19 07:11 DC 01/07/19 22:21 Ceftriaxone Sodium (Rocephin) 2 gm Q24H 01/08/19 07:30 01/11/19 08:16 Enoxaparin Sodium (Lovenox 40mg Syringe) 40 mg Q24H 01/05/19 12:00 01/10/19 13:05 Fentanyl (Duragesic 12mcg/ Hr Patch) 1 patch Q3DAYS 01/04/19 19:00 01/08/19 10:07 DC 01/07/19 09:06 Furosemide (Lasix) 20 mg DAILY 01/11/19 09:00 01/11/19 06:22 DC Heparin Sodium (Porcine) (Heparin Sodium) 4,000 unit 1X ONCE 01/04/19 13:30 01/04/19 13:31 DC 01/04/19 13:28 Heparin Sodium/ Dextrose 500 ml @ 16.3 mls/hr CONT PRN 01/04/19 11:45 01/05/19 11:04 DC 01/04/19 13:30 Hydroxychloroquine Sulfate (Plaquenil) 200 mg BID 01/04/19 21:00 01/11/19 08:19 Info (Anti-Coagulation Monitoring By Pharmacy) 1 each PRN DAILY PRN 01/04/19 21:30 01/08/19 10:59 DC 01/05/19 10:49 Lactobacillus Rhamnosus (Culturelle) 1 cap BID 01/07/19 21:00 01/08/19 11:05 DC 01/08/19 08:13 Lactulose (Lactulose) 20 gm 1X ONCE 01/10/19 16:00 01/10/19 16:03 DC 01/10/19 16:18 Magnesium Sulfate 50 ml @ 25 mls/hr 1X ONCE 01/10/19 12:30 01/10/19 14:29 DC 01/10/19 13:04 Mirtazapine (Remeron) 7.5 mg QHS 01/07/19 21:00 01/10/19 11:55 DC 01/09/19 20:48 Multivitamins/ Minerals (I-Sarah) 1 tab DAILY 01/11/19 09:00 01/11/19 08:16 Nitroglycerin (Nitrostat) 0.4 mg PRN Q5MIN PRN 01/04/19 19:00 01/05/19 18:59 DC Ondansetron HCl (Zofran Odt) 4 mg PRN Q6HRS PRN 01/04/19 13:15 01/11/19 08:18 Ondansetron HCl (Zofran) 4 mg PRN Q8HRS PRN 01/04/19 11:45 01/05/19 11:44 DC Pantoprazole Sodium (Protonix) 40 mg DAILY 01/05/19 09:00 01/11/19 08:18 Potassium Chloride (Klor-Con) 40 meq 1X ONCE 01/11/19 07:00 01/11/19 07:01 DC 01/11/19 08:17 Pregabalin (Lyrica) 25 mg BID 01/08/19 21:00 01/11/19 08:18 Sertraline HCl (Zoloft) 50 mg DAILY 01/10/19 13:00 01/11/19 08:18 Vancomycin HCl (Vanco Per Pharmacy) 1 each PRN DAILY PRN 01/05/19 07:45 01/08/19 10:59 DC 01/06/19 23:25 Vancomycin HCl (Vancomycin Trough Level) 1 each 1X ONCE 01/08/19 22:30 01/08/19 11:06 DC Vancomycin HCl 1.25 gm/Sodium Chloride 250 ml @ 167 mls/hr Q24H 01/06/19 23:00 01/08/19 07:11 DC 01/07/19 22:21 Vancomycin HCl 1.5 gm/Sodium Chloride 500 ml @ 250 mls/hr 1X ONCE 01/04/19 21:00 01/04/19 22:59 DC 01/04/19 21:19 Vancomycin HCl 1.75 gm/Sodium Chloride 500 ml @ 250 mls/hr 1X ONCE 01/04/19 20:45 01/04/19 22:44 Cancel Vancomycin HCl 1 gm/Sodium Chloride 250 ml @ 250 mls/hr QHS 01/05/19 21:00 01/06/19 22:44 DC 01/05/19 21:15 Vitamin D (Vitamin D3) 1,000 unit DAILY 01/05/19 09:00 01/11/19 08:18 Zolpidem Tartrate (Ambien) 5 mg PRN QHS PRN 01/04/19 13:15 01/07/19 10:27 DC Labs: Lab Laboratory Tests Test 01/10/19 13:02 01/10/19 16:27 01/10/19 21:12 01/11/19 03:30 Glucose (Fingerstick) 179 mg/dL (70-99) 139 mg/dL (70-99) 180 mg/dL (70-99) White Blood Count 13.2 x10^3/uL (4.0-11.0) Red Blood Count 4.12 x10^6/uL (3.50-5.40) Hemoglobin 9.8 g/dL (12.0-15.5) Hematocrit 31.9 % (36.0-47.0) Mean Corpuscular Volume 78 fL (79-100) Mean Corpuscular Hemoglobin 24 pg (25-35) Mean Corpuscular Hemoglobin Concent 31 g/dL (31-37) Red Cell Distribution Width 16.9 % (11.5-14.5) Platelet Count 219 x10^3/uL (140-400) Neutrophils (%) (Auto) 89 % (31-73) Lymphocytes (%) (Auto) 4 % (24-48) Monocytes (%) (Auto) 6 % (0-9) Eosinophils (%) (Auto) 1 % (0-3) Basophils (%) (Auto) 0 % (0-3) Neutrophils # (Auto) 11.7 x10^3/uL (1.8-7.7) Lymphocytes # (Auto) 0.5 x10^3/uL (1.0-4.8) Monocytes # (Auto) 0.8 x10^3/uL (0.0-1.1) Eosinophils # (Auto) 0.1 x10^3/uL (0.0-0.7) Basophils # (Auto) 0.1 x10^3/uL (0.0-0.2) Sodium Level 140 mmol/L (136-145) Potassium Level 2.8 mmol/L (3.5-5.1) Chloride Level 97 mmol/L (98-107) Carbon Dioxide Level 36 mmol/L (21-32) Anion Gap 7 (6-14) Blood Urea Nitrogen 22 mg/dL (7-20) Creatinine 0.8 mg/dL (0.6-1.0) Estimated GFR (Cockcroft-Gault) 67.8 Glucose Level 151 mg/dL (70-99) Calcium Level 9.5 mg/dL (8.5-10.1) Magnesium Level 2.1 mg/dL (1.8-2.4) Test 01/11/19 07:14 Glucose (Fingerstick) 140 mg/dL (70-99) Objective: Assessment: Grp B strep Bacteremia POA 01/04 (2 of 4 bottles) Fever resolved Questionable UTI, POA ,lactobacillus in uc ,likely contaminant h/o MRSA Acute-on chronic respiratory failure. 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 reactive constipation Plan: Plan of Care Change Ceftriaxone to Keflex for 6 more days monitor wbc trend will sign out,call if questions Maintain aspiration precautions d/w EUSEBIO Sprague MD Jan 11, 2019 08:54
[2019-01-11] MEDS ORDERED: FUROSEMIDE 20 MG TABLET PO SCH (09:00)
[2019-01-11] MEDS: CEPHALEXIN 250 MG CAPSULE. PO SCH ×3 (10:04→22:11)
--- NOTE | 2019-01-11 10:26 | PDOC ---
PROGRESS NOTES Subjective Subjective feels better. potassium low 2.8 . frequent soft BM today. lacutlose times 2 given yesterday. Objective Objective Vital Signs Date Time Temp Pulse Resp B/P (MAP) Pulse Ox O2 Delivery O2 Flow Rate FiO2 01/11/19 08:19 89 144/52 01/11/19 08:00 Nasal Cannula 3.0 01/11/19 07:12 98.6 18 99 98.6 Intake and Output 01/11/19 07:00 Intake Total 620 ml Output Total 1325 ml Balance -705 ml Intake Oral 620 ml Output Urine Total 1325 ml Physical Exam Abdomen: Soft Heart: Normal S1, Normal S2 Extremities: No edema General: Alert HEENT: Atraumatic Lungs: Clear to auscultation Neuro: Normal speech Psych/Mental Status: Mood NL Skin: No rashes Assessment Assessment ProblemsNon-ST segment elevated myocardial infarction. 2. Acute on chronic diastolic congestive heart failure. better compensated 3. Group B streptococcus bacteremia 4. 5. Hyperlipidemia with statin intolerance. 6. Acute kidney injury. due to dehydration resolved 7. Acute on chronic hypoxic respiratory failure. 8. Fibromyalgia. 9. Chronic pain. 10. Fever. resolved 11. Diarrhea. resolved 12. Anemia of chronic disease with some progression in the anemia. 13. Thrombocytopenia. resolved 14. Chronic obstructive pulmonary disease. 15. Severe protein-calorie malnutrition. 16. Metabolic encephalopathy. diabetes mellitus type 2 with peripheral neuropathy hypertension. bp high moderate mitral stenosis per echo hypokalemia leukocytosis Medical Problems: (1) Acute and chronic respiratory failure Status: Acute (2) CHF exacerbation Status: Acute (3) Elevated troponin Status: Acute Plan Plan of Care replete kcl continue keflex d/c pantoja lab tomorrow d/c diuretics Comment Review of Relevant I have reviewed the following items lizbeth (where applicable) has been applied. Labs Laboratory Tests Test 01/10/19 07:37 01/10/19 08:25 01/10/19 13:02 01/10/19 16:27 Glucose (Fingerstick) 107 mg/dL (70-99) 179 mg/dL (70-99) 139 mg/dL (70-99) Sodium Level 139 mmol/L (136-145) Potassium Level 3.6 mmol/L (3.5-5.1) Chloride Level 97 mmol/L (98-107) Carbon Dioxide Level 38 mmol/L (21-32) Anion Gap 4 (6-14) Blood Urea Nitrogen 22 mg/dL (7-20) Creatinine 0.7 mg/dL (0.6-1.0) Estimated GFR (Cockcroft-Gault) 79.2 Glucose Level 134 mg/dL (70-99) Calcium Level 9.2 mg/dL (8.5-10.1) Magnesium Level 1.7 mg/dL (1.8-2.4) Test 01/10/19 21:12 01/11/19 03:30 01/11/19 07:14 Glucose (Fingerstick) 180 mg/dL (70-99) 140 mg/dL (70-99) White Blood Count 13.2 x10^3/uL (4.0-11.0) Red Blood Count 4.12 x10^6/uL (3.50-5.40) Hemoglobin 9.8 g/dL (12.0-15.5) Hematocrit 31.9 % (36.0-47.0) Mean Corpuscular Volume 78 fL (79-100) Mean Corpuscular Hemoglobin 24 pg (25-35) Mean Corpuscular Hemoglobin Concent 31 g/dL (31-37) Red Cell Distribution Width 16.9 % (11.5-14.5) Platelet Count 219 x10^3/uL (140-400) Neutrophils (%) (Auto) 89 % (31-73) Lymphocytes (%) (Auto) 4 % (24-48) Monocytes (%) (Auto) 6 % (0-9) Eosinophils (%) (Auto) 1 % (0-3) Basophils (%) (Auto) 0 % (0-3) Neutrophils # (Auto) 11.7 x10^3/uL (1.8-7.7) Lymphocytes # (Auto) 0.5 x10^3/uL (1.0-4.8) Monocytes # (Auto) 0.8 x10^3/uL (0.0-1.1) Eosinophils # (Auto) 0.1 x10^3/uL (0.0-0.7) Basophils # (Auto) 0.1 x10^3/uL (0.0-0.2) Sodium Level 140 mmol/L (136-145) Potassium Level 2.8 mmol/L (3.5-5.1) Chloride Level 97 mmol/L (98-107) Carbon Dioxide Level 36 mmol/L (21-32) Anion Gap 7 (6-14) Blood Urea Nitrogen 22 mg/dL (7-20) Creatinine 0.8 mg/dL (0.6-1.0) Estimated GFR (Cockcroft-Gault) 67.8 Glucose Level 151 mg/dL (70-99) Calcium Level 9.5 mg/dL (8.5-10.1) Magnesium Level 2.1 mg/dL (1.8-2.4) Laboratory Tests Test 01/10/19 13:02 01/10/19 16:27 01/10/19 21:12 01/11/19 03:30 Glucose (Fingerstick) 179 mg/dL (70-99) 139 mg/dL (70-99) 180 mg/dL (70-99) White Blood Count 13.2 x10^3/uL (4.0-11.0) Red Blood Count 4.12 x10^6/uL (3.50-5.40) Hemoglobin 9.8 g/dL (12.0-15.5) Hematocrit 31.9 % (36.0-47.0) Mean Corpuscular Volume 78 fL (79-100) Mean Corpuscular Hemoglobin 24 pg (25-35) Mean Corpuscular Hemoglobin Concent 31 g/dL (31-37) Red Cell Distribution Width 16.9 % (11.5-14.5) Platelet Count 219 x10^3/uL (140-400) Neutrophils (%) (Auto) 89 % (31-73) Lymphocytes (%) (Auto) 4 % (24-48) Monocytes (%) (Auto) 6 % (0-9) Eosinophils (%) (Auto) 1 % (0-3) Basophils (%) (Auto) 0 % (0-3) Neutrophils # (Auto) 11.7 x10^3/uL (1.8-7.7) Lymphocytes # (Auto) 0.5 x10^3/uL (1.0-4.8) Monocytes # (Auto) 0.8 x10^3/uL (0.0-1.1) Eosinophils # (Auto) 0.1 x10^3/uL (0.0-0.7) Basophils # (Auto) 0.1 x10^3/uL (0.0-0.2) Sodium Level 140 mmol/L (136-145) Potassium Level 2.8 mmol/L (3.5-5.1) Chloride Level 97 mmol/L (98-107) Carbon Dioxide Level 36 mmol/L (21-32) Anion Gap 7 (6-14) Blood Urea Nitrogen 22 mg/dL (7-20) Creatinine 0.8 mg/dL (0.6-1.0) Estimated GFR (Cockcroft-Gault) 67.8 Glucose Level 151 mg/dL (70-99) Calcium Level 9.5 mg/dL (8.5-10.1) Magnesium Level 2.1 mg/dL (1.8-2.4) Test 01/11/19 07:14 Glucose (Fingerstick) 140 mg/dL (70-99) Microbiology 01/04/19 Blood Culture - Final, Complete NO GROWTH AFTER 5 DAYS 01/04/19 Urine Culture - Final, Complete 01/04/19 Urine Culture Result 1 (NIKOLAS) - Final, Complete Medications Current Medications Albuterol/ Ipratropium (Duoneb) 3 ml 1X ONCE NEB Last administered on 01/04/19at 10:45; Start 01/04/19 at 10:45; Stop 01/04/19 at 10:46; Status DC Furosemide (Lasix) 40 mg 1X ONCE IVP Last administered on 01/04/19at 11:07; Start 01/04/19 at 10:45; Stop 01/04/19 at 10:46; Status DC Heparin Sodium/ Dextrose 500 ml @ 16.3 mls/hr CONT PRN IV protocol Last administered on 01/04/19at 13:30; Start 01/04/19 at 11:45; Stop 01/05/19 at 11:04; Status DC Heparin Sodium (Porcine) (Heparin Sodium) 1,700 unit PRN Q6HRS PRN IV FOR UFH LEVEL LESS THAN 0.2; Start 01/04/19 at 11:45; Stop 01/05/19 at 11:04; Status DC Ondansetron HCl (Zofran) 4 mg PRN Q8HRS PRN IV NAUSEA/VOMITING; Start 01/04/19 at 11:45; Stop 01/05/19 at 11:44; Status DC Acetaminophen (Tylenol) 650 mg PRN Q4HRS PRN PO FEVER; Start 01/04/19 at 11:45; Stop 01/05/19 at 11:44; Status DC Nitroglycerin (Nitrostat) 0.4 mg PRN Q5MIN PRN SL CHEST PAIN; Start 01/04/19 at 11:45; Stop 01/04/19 at 18:59; Status DC Albuterol/ Ipratropium (Duoneb) 3 ml RTQID NEB Last administered on 01/05/19at 11:43; Start 01/04/19 at 12:00; Stop 01/05/19 at 11:59; Status DC Heparin Sodium (Porcine) (Heparin Sodium) 4,000 unit 1X ONCE IV Last administered on 01/04/19at 13:28; Start 01/04/19 at 13:30; Stop 01/04/19 at 13:31; Status DC Carvedilol (Coreg) 6.25 mg BIDWMEALS PO Last administered on 01/08/19at 17:33; Start 01/04/19 at 17:00; Stop 01/09/19 at 10:29; Status DC Aspirin (Ede Aspirin) 325 mg 1X ONCE PO Last administered on 01/04/19at 15:17; Start 01/04/19 at 13:15; Stop 01/04/19 at 13:47; Status DC Aspirin (Children'S Aspirin) 81 mg DAILYWBKFT PO Last administered on 01/10/19at 08:40; Start 01/05/19 at 08:00; Stop 01/10/19 at 13:38; Status DC Alprazolam (Xanax) 0.5 mg BID PO Last administered on 01/06/19at 07:56; Start 01/04/19 at 21:00; Stop 01/06/19 at 10:19; Status DC Fentanyl (Duragesic 12mcg/ Hr Patch) 1 patch Q3DAYS TD ; Start 01/05/19 at 09:00; Stop 01/04/19 at 18:59; Status DC Pregabalin (Lyrica) 75 mg BID PO Last administered on 01/06/19at 07:57; Start 01/04/19 at 21:00; Stop 01/06/19 at 10:19; Status DC Acetaminophen/ Hydrocodone Bitart (Lortab 5/325) 1 tab PRN BID PRN PO PAIN Last administered on 01/11/19 04:54; Start 01/04/19 at 13:15 Pantoprazole Sodium (Protonix) 40 mg DAILY PO Last administered on 01/11/19at 08:18; Start 01/05/19 at 09:00 Hydroxychloroquine Sulfate (Plaquenil) 200 mg BID PO Last administered on 01/11/19 08:19; Start 01/04/19 at 21:00 Sertraline HCl (Zoloft) 100 mg DAILY PO Last administered on 01/06/19at 07:57; Start 01/05/19 at 09:00; Stop 01/06/19 at 10:19; Status DC Zolpidem Tartrate (Ambien) 5 mg PRN QHS PRN PO INSOMNIA; Start 01/04/19 at 13:15; Stop 01/07/19 at 10:27; Status DC Ondansetron HCl (Zofran Odt) 4 mg PRN Q6HRS PRN PO NAUSEA Last administered on 01/11/19at 08:18; Start 01/04/19 at 13:15 Vitamin D (Vitamin D3) 1,000 unit DAILY PO Last administered on 01/11/19 08:18; Start 01/05/19 at 09:00 Albuterol Sulfate (Ventolin Neb Soln) 2.5 mg PRN Q4HRS PRN NEB WHEEZING Last administered on 01/09/19at 03:49; Start 01/04/19 at 13:15; Stop 01/09/19 at 10:39; Status DC Fentanyl (Duragesic 12mcg/ Hr Patch) 1 patch Q3DAYS TD Last administered on 01/07/19 09:06; Start 01/04/19 at 19:00; Stop 01/08/19 at 10:07; Status DC Nitroglycerin (Nitrostat) 0.4 mg PRN Q5MIN PRN SL CHEST PAIN; Start 01/04/19 at 19:00; Stop 01/05/19 at 18:59; Status DC Cefepime HCl (Maxipime) 1 gm Q12HR IVP ; Start 01/04/19 at 21:00; Stop 12/08 10/25 at 20:40; Status DC Vancomycin HCl (Vanco Per Pharmacy) 1 each 1X PRN PRN MC SEE COMMENTS Last administered on 01/04/19at 21:25; Start 01/04/19 at 19:45; Stop 01/05/19 at 07:50; Status DC Vancomycin HCl 1.75 gm/Sodium Chloride 500 ml @ 250 mls/hr 1X ONCE IV ; Start 01/04/19 at 20:45; Stop 01/04/19 at 22:44; Status Cancel Cefepime HCl (Maxipime) 1 gm QHS IVP Last administered on 01/04/19at 23:17; Start 01/04/19 at 21:00; Stop 01/05/19 at 09:49; Status DC Vancomycin HCl 1.5 gm/Sodium Chloride 500 ml @ 250 mls/hr 1X ONCE IV Last administered on 01/04/19at 21:19; Start 01/04/19 at 21:00; Stop 01/04/19 at 22:59; Status DC Info (Anti-Coagulation Monitoring By Pharmacy) 1 each PRN DAILY PRN MC SEE COMMENTS Last administered on 01/05/19at 10:49; Start 01/04/19 at 21:30; Stop 01/08/19 at 10:59; Status DC Vancomycin HCl 1 gm/Sodium Chloride 250 ml @ 250 mls/hr Q48H IV ; Start 01/06/19 at 21:00; Stop 01/05/19 at 10:30; Status DC Vancomycin HCl (Vanco Per Pharmacy) 1 each PRN DAILY PRN MC SEE COMMENTS Last administered on 01/06/19at 23:25; Start 01/05/19 at 07:45; Stop 01/08/19 at 10:59; Status DC Cefepime HCl (Maxipime) 1 gm BID IVP Last administered on 01/07/19at 22:21; Start 01/05/19 at 10:00; Stop 01/08/19 at 07:11; Status DC Vancomycin HCl 1 gm/Sodium Chloride 250 ml @ 250 mls/hr QHS IV Last administered on 01/05/19at 21:15; Start 01/05/19 at 21:00; Stop 01/06/19 at 22:44; Status DC Vancomycin HCl (Vancomycin Trough Level) 1 each 1X ONCE MC Last administered on 01/06/19at 20:30; Start 01/06/19 at 20:30; Stop 01/06/19 at 20:31; Status DC Enoxaparin Sodium (Lovenox 40mg Syringe) 40 mg Q24H SQ Last administered on 01/10/19at 13:05; Start 01/05/19 at 12:00 Magnesium Sulfate 50 ml @ 25 mls/hr 1X ONCE IV Last administered on 01/05/19at 12:32; Start 01/05/19 at 11:15; Stop 01/05/19 at 13:14; Status DC Alprazolam (Xanax) 0.25 mg PRN BID PRN PO ANXIETY / AGITATION; Start 01/06/19 at 10:30; Stop 01/07/19 at 10:27; Status DC Pregabalin (Lyrica) 50 mg BID PO ; Start 01/06/19 at 11:00; Stop 01/06/19 at 11:04; Status DC Mirtazapine (Remeron) 15 mg QHS PO Last administered on 01/06/19at 21:21; Start 01/06/19 at 21:00; Stop 01/07/19 at 10:27; Status DC Pregabalin (Lyrica) 50 mg BID PO Last administered on 01/08/19at 08:12; Start 01/06/19 at 21:00; Stop 01/08/19 at 10:01; Status DC Vancomycin HCl 1.25 gm/Sodium Chloride 250 ml @ 167 mls/hr Q24H IV Last administered on 01/07/19at 22:21; Start 01/06/19 at 23:00; Stop 01/08/19 at 07:11; Status DC Vancomycin HCl (Vancomycin Trough Level) 1 each 1X ONCE MC ; Start 01/08/19 at 22:30; Stop 01/08/19 at 11:06; Status DC Mirtazapine (Remeron) 7.5 mg QHS PO Last administered on 01/09/19at 20:48; Start 01/07/19 at 21:00; Stop 01/10/19 at 11:55; Status DC Lactobacillus Rhamnosus (Culturelle) 1 cap BID PO Last administered on 01/08/19at 08:13; Start 01/07/19 at 21:00; Stop 01/08/19 at 11:05; Status DC Amlodipine Besylate (Norvasc) 5 mg DAILY PO Last administered on 01/08/19 08:13; Start 01/07/19 at 18:00; Stop 01/09/19 at 11:00; Status DC Ceftriaxone Sodium (Rocephin) 2 gm Q24H IVP Last administered on 01/11/19at 08:16; Start 01/08/19 at 07:30; Stop 01/11/19 at 09:20; Status DC Pregabalin (Lyrica) 25 mg BID PO Last administered on 01/11/19at 08:18; Start 01/08/19 at 21:00 Carvedilol (Coreg) 12.5 mg BIDWMEALS PO ; Start 01/09/19 at 10:30; Stop 01/09/19 at 11:00; Status DC Albuterol/ Ipratropium (Duoneb) 3 ml RTQID NEB Last administered on 01/11/19at 07:08; Start 01/09/19 at 12:00 Albuterol Sulfate (Ventolin Neb Soln) 2.5 mg PRN Q4HRS PRN NEB SHORTNESS OF BREATH; Start 01/09/19 at 10:45 Amlodipine Besylate (Norvasc) 10 mg DAILY PO Last administered on 01/11/19at 08:19; Start 01/10/19 at 09:00 Carvedilol (Coreg) 6.25 mg BIDWMEALS PO Last administered on 01/11/19at 08:19; Start 01/09/19 at 17:00 Amlodipine Besylate (Norvasc) 5 mg 1X ONCE PO Last administered on 01/09/19at 11:00; Start 01/09/19 at 11:00; Stop 01/09/19 at 11:04; Status DC Furosemide (Lasix) 40 mg 1X ONCE IVP Last administered on 01/09/19at 13:49; Start 01/09/19 at 11:45; Stop 01/09/19 at 11:46; Status DC Potassium Chloride (Klor-Con) 20 meq 1X ONCE PO Last administered on 01/09/19at 13:50; Start 01/09/19 at 11:45; Stop 01/09/19 at 11:46; Status DC Furosemide (Lasix) 40 mg 1X ONCE IVP ; Start 01/10/19 at 09:15; Stop 01/10/19 at 09:17; Status DC Furosemide (Lasix) 20 mg 1X ONCE IVP Last administered on 01/10/19at 13:05; Start 01/10/19 at 10:45; Stop 01/11/19 at 06:22; Status DC Potassium Chloride (Klor-Con) 20 meq 1X ONCE PO Last administered on 01/10/19at 13:04; Start 01/10/19 at 10:45; Stop 01/10/19 at 10:46; Status DC Furosemide (Lasix) 20 mg DAILY PO ; Start 01/11/19 at 09:00; Stop 01/11/19 at 06:22; Status DC Aspirin (Ecotrin) 81 mg DAILYWBKFT PO Last administered on 01/11/19at 08:17; Start 01/10/19 at 11:00 Sertraline HCl (Zoloft) 50 mg DAILY PO Last administered on 01/11/19 08:18; Start 01/10/19 at 13:00 Magnesium Sulfate 50 ml @ 25 mls/hr 1X ONCE IV Last administered on 01/10/19at 13:04; Start 01/10/19 at 12:30; Stop 01/10/19 at 14:29; Status DC Potassium Chloride (Klor-Con) 20 meq DAILYWBKFT PO Last administered on 01/11/19at 08:18; Start 01/11/19 at 08:00 Lactulose (Lactulose) 20 gm 1X ONCE PO Last administered on 01/10/19at 17:46; Start 01/10/19 at 17:00; Stop 01/10/19 at 17:01; Status DC Lactulose (Lactulose) 20 gm 1X ONCE PO Last administered on 01/10/19at 16:18; Start 01/10/19 at 16:00; Stop 01/10/19 at 16:03; Status DC Multivitamins/ Minerals (I-Sarah) 1 tab DAILY PO Last administered on 01/11/19at 08:16; Start 01/11/19 at 09:00 Ascorbic Acid (Vitamin C) 500 mg DAILY PO Last administered on 01/11/19at 08:18; Start 01/11/19 at 09:00 Potassium Chloride (Klor-Con) 40 meq 1X ONCE PO Last administered on 01/11/19at 08:17; Start 01/11/19 at 07:00; Stop 01/11/19 at 07:01; Status DC Cephalexin HCl (Keflex) 500 mg TID PO Last administered on 01/11/19at 10:04; Start 01/11/19 at 10:00 Active Scripts Active Prednisone 20 Mg Tablet 30 Mg PO DAILY 4 Days Aspirin Ec (Aspirin) 81 Mg Tablet.dr 81 Mg PO DAILYWBKFT Amox Tr-K Clv 875-125 Mg Tab (Amoxicillin/Potassium Clav) 1 Each Tablet 1 Tab PO BID Reported Senna (Sennosides) 8.6 Mg Tablet 8.6 Mg PO BID Zoloft (Sertraline Hcl) 100 Mg Tablet 100 Mg PO DAILY Amlodipine Besylate 5 Mg Tablet 5 Mg PO DAILY Coreg (Carvedilol) 25 Mg Tablet 25 Mg PO BID Lidocaine 1 Each Adh..patch 1 Each TP DAILY FENTANYL 12mcg/hr (Fentanyl) 1 Each Patch.td72 1 Patch TD Q72H Xanax (Alprazolam) 0.5 Mg Tablet 1 Tab PO BID Lyrica (Pregabalin) 75 Mg Capsule 75 Mg PO BID Omeprazole 20 Mg Capsule.dr 20 Mg PO BID Duoneb 0.5-3(2.5) Mg/3 Ml (Albuterol/Ipratropium) 3 Ml Ampul.neb 3 Ml NEB PRN Q4HRS PRN Ambien (Zolpidem Tartrate) 5 Mg Tablet 5 Mg PO PRN QHS PRN Hydrocodone-Apap 5-325 (Hydrocodone Bit/Acetaminophen) 1 Tab Tablet 1 Tab PO PRN Q8HRS PRN Vitamin D (Cholecalciferol (Vitamin D3)) 1,000 Unit Capsule 1 Cap PO DAILY Advair 250-50 Diskus (Fluticasone/Salmeterol) 1 Each Disk.w.dev 1 Puff IH BID Multi-Day Vitamins (Multivitamin) 1 Each Tablet 1 Tab PO DAILY Colace (Docusate Sodium) 100 Mg Capsule 100 Mg PO BID Vitals/I & O Vital Sign - Last 24 Hours 01/10/19 01/10/19 01/10/19 01/10/19 10:43 11:37 15:00 15:13 Temp 99.0 98.5 99.0 98.5 Pulse 74 82 Resp 18 20 B/P (MAP) 125/52 (76) 137/68 (91) Pulse Ox 96 97 96 96 O2 Delivery Nasal Cannula Nasal Cannula Nasal Cannula Nasal Cannula O2 Flow Rate 3.0 3.0 3.0 3.0 01/10/19 01/10/19 01/10/19 01/10/19 16:17 16:18 17:18 19:04 Temp 97.9 97.9 Pulse 82 74 Resp 18 B/P (MAP) 137/68 132/50 (77) Pulse Ox 96 96 97 O2 Delivery Nasal Cannula Nasal Cannula Nasal Cannula O2 Flow Rate 3.0 3.0 3.0 01/10/19 01/10/19 01/10/19 01/11/19 20:00 21:23 22:38 03:10 Temp 98.0 98.2 98.0 98.2 Pulse 74 76 Resp 18 18 B/P (MAP) 134/55 (81) 152/65 (94) Pulse Ox 98 98 97 O2 Delivery Nasal Cannula Nasal Cannula Nasal Cannula Nasal Cannula O2 Flow Rate 3.0 3.0 3.0 3.0 01/11/19 01/11/19 01/11/19 01/11/19 07:09 07:12 08:00 08:19 Temp 98.6 98.6 Pulse 89 89 Resp 18 B/P (MAP) 144/52 (82) 144/52 Pulse Ox 99 99 O2 Delivery Nasal Cannula Nasal Cannula Nasal Cannula O2 Flow Rate 3.0 3.0 3.0 01/11/19 08:19 Pulse 89 B/P (MAP) 144/52 Intake and Output 01/10/19 01/10/19 01/11/19 15:00 23:00 07:00 Intake Total 150 ml 200 ml 270 ml Output Total 175 ml 350 ml 800 ml Balance -25 ml -150 ml -530 ml KARAN KIMBLE MD Jan 11, 2019 10:26
[2019-01-11 10:42] VITALS: BP 118/48
[2019-01-11] MEDS: ENOXAPARIN 40 MG/0.4 ML SYRINGE. SQ SCH (12:09)
[2019-01-11 14:17] VITALS: BP 121/44
--- NOTE | 2019-01-11 15:31 | PDOC ---
PROGRESS NOTES Subjective Subjective Patient seen and examined Objective Objective Vital Signs Date Time Temp Pulse Resp B/P (MAP) Pulse Ox O2 Delivery O2 Flow Rate FiO2 01/11/19 14:17 98.0 66 18 121/44 (69) 99 Nasal Cannula 3.0 98.0 Intake and Output0 01/11/19 07:00 Intake Total 620 ml Output Total 1325 ml Balance -705 ml Intake Oral 620 ml Output Urine Total 1325 ml Physical Exam Abdomen: Normal bowel sounds Heart: Other (irregular rhythm) General: mild distress Lungs: Other (mildly decreased breath sounds) Assessment Assessment Problems Medical Problems: (1) Acute and chronic respiratory failure Status: Acute (2) CHF exacerbation Status: Acute (3) Elevated troponin Status: Acute 1. Acute on chronic respiratory failure with underlying AECOPD, CHF, and possible aspiration. Patient mildly improved but continues to be severely limited. 2. Acute on chronic diastolic CHF: preserved EF 3. NSTEMI: peaked troponin at 3, likely demand mediated, type 2. Continuing on medical treatment. 4. Sepsis with bacteremia and possible UTI. ID following 5. HTN: better 6. 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 intolerant to statins 7. SSS s/p PPM 8. Moderate mitral stenosis 7. CKD 2 8. Metabolic encephalopathy:improved 9. Hypokalemia. Morning level of 2.8 treated and repeat level of 3.5. Comment Review of Relevant I have reviewed the following items lizbeth (where applicable) has been applied. Labs Laboratory Tests Test 01/10/19 07:37 01/10/19 08:25 01/10/19 13:02 01/10/19 16:27 Glucose (Fingerstick) 107 mg/dL (70-99) 179 mg/dL (70-99) 139 mg/dL (70-99) Sodium Level 139 mmol/L (136-145) Potassium Level 3.6 mmol/L (3.5-5.1) Chloride Level 97 mmol/L (98-107) Carbon Dioxide Level 38 mmol/L (21-32) Anion Gap 4 (6-14) Blood Urea Nitrogen 22 mg/dL (7-20) Creatinine 0.7 mg/dL (0.6-1.0) Estimated GFR (Cockcroft-Gault) 79.2 Glucose Level 134 mg/dL (70-99) Calcium Level 9.2 mg/dL (8.5-10.1) Magnesium Level 1.7 mg/dL (1.8-2.4) Test 01/10/19 21:12 01/11/19 03:30 01/11/19 07:14 01/11/19 11:00 Glucose (Fingerstick) 180 mg/dL (70-99) 140 mg/dL (70-99) White Blood Count 13.2 x10^3/uL (4.0-11.0) Red Blood Count 4.12 x10^6/uL (3.50-5.40) Hemoglobin 9.8 g/dL (12.0-15.5) Hematocrit 31.9 % (36.0-47.0) Mean Corpuscular Volume 78 fL (79-100) Mean Corpuscular Hemoglobin 24 pg (25-35) Mean Corpuscular Hemoglobin Concent 31 g/dL (31-37) Red Cell Distribution Width 16.9 % (11.5-14.5) Platelet Count 219 x10^3/uL (140-400) Neutrophils (%) (Auto) 89 % (31-73) Lymphocytes (%) (Auto) 4 % (24-48) Monocytes (%) (Auto) 6 % (0-9) Eosinophils (%) (Auto) 1 % (0-3) Basophils (%) (Auto) 0 % (0-3) Neutrophils # (Auto) 11.7 x10^3/uL (1.8-7.7) Lymphocytes # (Auto) 0.5 x10^3/uL (1.0-4.8) Monocytes # (Auto) 0.8 x10^3/uL (0.0-1.1) Eosinophils # (Auto) 0.1 x10^3/uL (0.0-0.7) Basophils # (Auto) 0.1 x10^3/uL (0.0-0.2) Sodium Level 140 mmol/L (136-145) Potassium Level 2.8 mmol/L (3.5-5.1) 3.5 mmol/L (3.5-5.1) Chloride Level 97 mmol/L (98-107) Carbon Dioxide Level 36 mmol/L (21-32) Anion Gap 7 (6-14) Blood Urea Nitrogen 22 mg/dL (7-20) Creatinine 0.8 mg/dL (0.6-1.0) Estimated GFR (Cockcroft-Gault) 67.8 Glucose Level 151 mg/dL (70-99) Calcium Level 9.5 mg/dL (8.5-10.1) Magnesium Level 2.1 mg/dL (1.8-2.4) Laboratory Tests Test 01/10/19 16:27 01/10/19 21:12 01/11/19 03:30 01/11/19 07:14 Glucose (Fingerstick) 139 mg/dL (70-99) 180 mg/dL (70-99) 140 mg/dL (70-99) White Blood Count 13.2 x10^3/uL (4.0-11.0) Red Blood Count 4.12 x10^6/uL (3.50-5.40) Hemoglobin 9.8 g/dL (12.0-15.5) Hematocrit 31.9 % (36.0-47.0) Mean Corpuscular Volume 78 fL (79-100) Mean Corpuscular Hemoglobin 24 pg (25-35) Mean Corpuscular Hemoglobin Concent 31 g/dL (31-37) Red Cell Distribution Width 16.9 % (11.5-14.5) Platelet Count 219 x10^3/uL (140-400) Neutrophils (%) (Auto) 89 % (31-73) Lymphocytes (%) (Auto) 4 % (24-48) Monocytes (%) (Auto) 6 % (0-9) Eosinophils (%) (Auto) 1 % (0-3) Basophils (%) (Auto) 0 % (0-3) Neutrophils # (Auto) 11.7 x10^3/uL (1.8-7.7) Lymphocytes # (Auto) 0.5 x10^3/uL (1.0-4.8) Monocytes # (Auto) 0.8 x10^3/uL (0.0-1.1) Eosinophils # (Auto) 0.1 x10^3/uL (0.0-0.7) Basophils # (Auto) 0.1 x10^3/uL (0.0-0.2) Sodium Level 140 mmol/L (136-145) Potassium Level 2.8 mmol/L (3.5-5.1) Chloride Level 97 mmol/L (98-107) Carbon Dioxide Level 36 mmol/L (21-32) Anion Gap 7 (6-14) Blood Urea Nitrogen 22 mg/dL (7-20) Creatinine 0.8 mg/dL (0.6-1.0) Estimated GFR (Cockcroft-Gault) 67.8 Glucose Level 151 mg/dL (70-99) Calcium Level 9.5 mg/dL (8.5-10.1) Magnesium Level 2.1 mg/dL (1.8-2.4) Test 01/11/19 11:00 Potassium Level 3.5 mmol/L (3.5-5.1) Microbiology 01/04/19 Blood Culture - Final, Complete NO GROWTH AFTER 5 DAYS 01/04/19 Urine Culture - Final, Complete 01/04/19 Urine Culture Result 1 (NIKOLAS) - Final, Complete Medications Current Medications Albuterol/ Ipratropium (Duoneb) 3 ml 1X ONCE NEB Last administered on 01/04/19at 10:45; Start 01/04/19 at 10:45; Stop 01/04/19 at 10:46; Status DC Furosemide (Lasix) 40 mg 1X ONCE IVP Last administered on 01/04/19at 11:07; Start 01/04/19 at 10:45; Stop 01/04/19 at 10:46; Status DC Heparin Sodium/ Dextrose 500 ml @ 16.3 mls/hr CONT PRN IV protocol Last administered on 01/04/19at 13:30; Start 01/04/19 at 11:45; Stop 01/05/19 at 11:04; Status DC Heparin Sodium (Porcine) (Heparin Sodium) 1,700 unit PRN Q6HRS PRN IV FOR UFH LEVEL LESS THAN 0.2; Start 01/04/19 at 11:45; Stop 01/05/19 at 11:04; Status DC Ondansetron HCl (Zofran) 4 mg PRN Q8HRS PRN IV NAUSEA/VOMITING; Start 01/04/19 at 11:45; Stop 01/05/19 at 11:44; Status DC Acetaminophen (Tylenol) 650 mg PRN Q4HRS PRN PO FEVER; Start 01/04/19 at 11:45; Stop 01/05/19 at 11:44; Status DC Nitroglycerin (Nitrostat) 0.4 mg PRN Q5MIN PRN SL CHEST PAIN; Start 01/04/19 at 11:45; Stop 01/04/19 at 18:59; Status DC Albuterol/ Ipratropium (Duoneb) 3 ml RTQID NEB Last administered on 01/05/19at 11:43; Start 01/04/19 at 12:00; Stop 01/05/19 at 11:59; Status DC Heparin Sodium (Porcine) (Heparin Sodium) 4,000 unit 1X ONCE IV Last administered on 01/04/19at 13:28; Start 01/04/19 at 13:30; Stop 01/04/19 at 13:31; Status DC Carvedilol (Coreg) 6.25 mg BIDWMEALS PO Last administered on 01/08/19at 17:33; Start 01/04/19 at 17:00; Stop 01/09/19 at 10:29; Status DC Aspirin (Ede Aspirin) 325 mg 1X ONCE PO Last administered on 01/04/19at 15:17; Start 01/04/19 at 13:15; Stop 01/04/19 at 13:47; Status DC Aspirin (Children'S Aspirin) 81 mg DAILYWBKFT PO Last administered on 01/10/19at 08:40; Start 01/05/19 at 08:00; Stop 01/10/19 at 13:38; Status DC Alprazolam (Xanax) 0.5 mg BID PO Last administered on 01/06/19at 07:56; Start 01/04/19 at 21:00; Stop 01/06/19 at 10:19; Status DC Fentanyl (Duragesic 12mcg/ Hr Patch) 1 patch Q3DAYS TD ; Start 01/05/19 at 09:00; Stop 01/04/19 at 18:59; Status DC Pregabalin (Lyrica) 75 mg BID PO Last administered on 01/06/19at 07:57; Start 01/04/19 at 21:00; Stop 01/06/19 at 10:19; Status DC Acetaminophen/ Hydrocodone Bitart (Lortab 5/325) 1 tab PRN BID PRN PO PAIN Last administered on 01/11/19at 04:54; Start 01/04/19 at 13:15 Pantoprazole Sodium (Protonix) 40 mg DAILY PO Last administered on 01/11/19 08:18; Start 01/05/19 at 09:00 Hydroxychloroquine Sulfate (Plaquenil) 200 mg BID PO Last administered on 01/11/19 08:19; Start 01/04/19 at 21:00 Sertraline HCl (Zoloft) 100 mg DAILY PO Last administered on 01/06/19at 07:57; Start 01/05/19 at 09:00; Stop 01/06/19 at 10:19; Status DC Zolpidem Tartrate (Ambien) 5 mg PRN QHS PRN PO INSOMNIA; Start 01/04/19 at 13:15; Stop 01/07/19 at 10:27; Status DC Ondansetron HCl (Zofran Odt) 4 mg PRN Q6HRS PRN PO NAUSEA Last administered on 01/11/19 08:18; Start 01/04/19 at 13:15 Vitamin D (Vitamin D3) 1,000 unit DAILY PO Last administered on 01/11/19 08:18; Start 01/05/19 at 09:00 Albuterol Sulfate (Ventolin Neb Soln) 2.5 mg PRN Q4HRS PRN NEB WHEEZING Last administered on 01/09/19 03:49; Start 01/04/19 at 13:15; Stop 01/09/19 at 10:39; Status DC Fentanyl (Duragesic 12mcg/ Hr Patch) 1 patch Q3DAYS TD Last administered on 01/07/19 09:06; Start 01/04/19 at 19:00; Stop 01/08/19 at 10:07; Status DC Nitroglycerin (Nitrostat) 0.4 mg PRN Q5MIN PRN SL CHEST PAIN; Start 01/04/19 at 19:00; Stop 01/05/19 at 18:59; Status DC Cefepime HCl (Maxipime) 1 gm Q12HR IVP ; Start 01/04/19 at 21:00; Stop 01/04/19 at 20:40; Status DC Vancomycin HCl (Vanco Per Pharmacy) 1 each 1X PRN PRN MC SEE COMMENTS Last administered on 01/04/19at 21:25; Start 01/04/19 at 19:45; Stop 01/05/19 at 07:50; Status DC Vancomycin HCl 1.75 gm/Sodium Chloride 500 ml @ 250 mls/hr 1X ONCE IV ; Start 01/04/19 at 20:45; Stop 01/04/19 at 22:44; Status Cancel Cefepime HCl (Maxipime) 1 gm QHS IVP Last administered on 01/04/19at 23:17; Start 01/04/19 at 21:00; Stop 01/05/19 at 09:49; Status DC Vancomycin HCl 1.5 gm/Sodium Chloride 500 ml @ 250 mls/hr 1X ONCE IV Last administered on 01/04/19at 21:19; Start 01/04/19 at 21:00; Stop 01/04/19 at 22:59; Status DC Info (Anti-Coagulation Monitoring By Pharmacy) 1 each PRN DAILY PRN MC SEE COMMENTS Last administered on 01/05/19at 10:49; Start 01/04/19 at 21:30; Stop 01/08/19 at 10:59; Status DC Vancomycin HCl 1 gm/Sodium Chloride 250 ml @ 250 mls/hr Q48H IV ; Start 01/06/19 at 21:00; Stop 01/05/19 at 10:30; Status DC Vancomycin HCl (Vanco Per Pharmacy) 1 each PRN DAILY PRN MC SEE COMMENTS Last administered on 01/06/19at 23:25; Start 01/05/19 at 07:45; Stop 01/08/19 at 10:59; Status DC Cefepime HCl (Maxipime) 1 gm BID IVP Last administered on 01/07/19at 22:21; Start 01/05/19 at 10:00; Stop 01/08/19 at 07:11; Status DC Vancomycin HCl 1 gm/Sodium Chloride 250 ml @ 250 mls/hr QHS IV Last administered on 01/05/19at 21:15; Start 01/05/19 at 21:00; Stop 01/06/19 at 22:44; Status DC Vancomycin HCl (Vancomycin Trough Level) 1 each 1X ONCE MC Last administered on 01/06/19at 20:30; Start 01/06/19 at 20:30; Stop 01/06/19 at 20:31; Status DC Enoxaparin Sodium (Lovenox 40mg Syringe) 40 mg Q24H SQ Last administered on 01/11/19at 12:09; Start 01/05/19 at 12:00 Magnesium Sulfate 50 ml @ 25 mls/hr 1X ONCE IV Last administered on 01/05/19at 12:32; Start 01/05/19 at 11:15; Stop 01/05/19 at 13:14; Status DC Alprazolam (Xanax) 0.25 mg PRN BID PRN PO ANXIETY / AGITATION; Start 01/06/19 at 10:30; Stop 01/07/19 at 10:27; Status DC Pregabalin (Lyrica) 50 mg BID PO ; Start 01/06/19 at 11:00; Stop 01/06/19 at 11:04; Status DC Mirtazapine (Remeron) 15 mg QHS PO Last administered on 01/06/19at 21:21; Start 01/06/19 at 21:00; Stop 01/07/19 at 10:27; Status DC Pregabalin (Lyrica) 50 mg BID PO Last administered on 01/08/19at 08:12; Start 01/06/19 at 21:00; Stop 01/08/19 at 10:01; Status DC Vancomycin HCl 1.25 gm/Sodium Chloride 250 ml @ 167 mls/hr Q24H IV Last administered on 01/07/19at 22:21; Start 01/06/19 at 23:00; Stop 01/08/19 at 07:11; Status DC Vancomycin HCl (Vancomycin Trough Level) 1 each 1X ONCE MC ; Start 01/08/19 at 22:30; Stop 01/08/19 at 11:06; Status DC Mirtazapine (Remeron) 7.5 mg QHS PO Last administered on 01/09/19at 20:48; Start 01/07/19 at 21:00; Stop 01/10/19 at 11:55; Status DC Lactobacillus Rhamnosus (Culturelle) 1 cap BID PO Last administered on 01/08/19at 08:13; Start 01/07/19 at 21:00; Stop 01/08/19 at 11:05; Status DC Amlodipine Besylate (Norvasc) 5 mg DAILY PO Last administered on 01/08/19at 08:13; Start 01/07/19 at 18:00; Stop 01/09/19 at 11:00; Status DC Ceftriaxone Sodium (Rocephin) 2 gm Q24H IVP Last administered on 01/11/19at 08:16; Start 01/08/19 at 07:30; Stop 01/11/19 at 09:20; Status DC Pregabalin (Lyrica) 25 mg BID PO Last administered on 01/11/19at 08:18; Start 01/08/19 at 21:00 Carvedilol (Coreg) 12.5 mg BIDWMEALS PO ; Start 01/09/19 at 10:30; Stop 01/09/19 at 11:00; Status DC Albuterol/ Ipratropium (Duoneb) 3 ml RTQID NEB Last administered on 01/11/19at 11:20; Start 01/09/19 at 12:00 Albuterol Sulfate (Ventolin Neb Soln) 2.5 mg PRN Q4HRS PRN NEB SHORTNESS OF BREATH; Start 01/09/19 at 10:45 Amlodipine Besylate (Norvasc) 10 mg DAILY PO Last administered on 01/11/19at 08:19; Start 01/10/19 at 09:00 Carvedilol (Coreg) 6.25 mg BIDWMEALS PO Last administered on 01/11/19at 08:19; Start 01/09/19 at 17:00 Amlodipine Besylate (Norvasc) 5 mg 1X ONCE PO Last administered on 01/09/19at 11:00; Start 01/09/19 at 11:00; Stop 01/09/19 at 11:04; Status DC Furosemide (Lasix) 40 mg 1X ONCE IVP Last administered on 01/09/19at 13:49; Start 01/09/19 at 11:45; Stop 01/09/19 at 11:46; Status DC Potassium Chloride (Klor-Con) 20 meq 1X ONCE PO Last administered on 01/09/19at 13:50; Start 01/09/19 at 11:45; Stop 01/09/19 at 11:46; Status DC Furosemide (Lasix) 40 mg 1X ONCE IVP ; Start 01/10/19 at 09:15; Stop 01/10/19 at 09:17; Status DC Furosemide (Lasix) 20 mg 1X ONCE IVP Last administered on 01/10/19at 13:05; Start 01/10/19 at 10:45; Stop 01/11/19 at 06:22; Status DC Potassium Chloride (Klor-Con) 20 meq 1X ONCE PO Last administered on 01/10/19at 13:04; Start 01/10/19 at 10:45; Stop 01/10/19 at 10:46; Status DC Furosemide (Lasix) 20 mg DAILY PO ; Start 01/11/19 at 09:00; Stop 01/11/19 at 06:22; Status DC Aspirin (Ecotrin) 81 mg DAILYWBKFT PO Last administered on 01/11/19at 08:17; Start 01/10/19 at 11:00 Sertraline HCl (Zoloft) 50 mg DAILY PO Last administered on 01/11/19at 08:18; Start 01/10/19 at 13:00 Magnesium Sulfate 50 ml @ 25 mls/hr 1X ONCE IV Last administered on 01/10/19at 13:04; Start 01/10/19 at 12:30; Stop 01/10/19 at 14:29; Status DC Potassium Chloride (Klor-Con) 20 meq DAILYWBKFT PO Last administered on 01/11/19at 08:18; Start 01/11/19 at 08:00 Lactulose (Lactulose) 20 gm 1X ONCE PO Last administered on 01/10/19at 17:46; Start 01/10/19 at 17:00; Stop 01/10/19 at 17:01; Status DC Lactulose (Lactulose) 20 gm 1X ONCE PO Last administered on 01/10/19at 16:18; Start 01/10/19 at 16:00; Stop 01/10/19 at 16:03; Status DC Multivitamins/ Minerals (I-Sarah) 1 tab DAILY PO Last administered on 01/11/19at 08:16; Start 01/11/19 at 09:00 Ascorbic Acid (Vitamin C) 500 mg DAILY PO Last administered on 01/11/19at 08:18; Start 01/11/19 at 09:00 Potassium Chloride (Klor-Con) 40 meq 1X ONCE PO Last administered on 01/11/19at 08:17; Start 01/11/19 at 07:00; Stop 01/11/19 at 07:01; Status DC Cephalexin HCl (Keflex) 500 mg TID PO Last administered on 01/11/19at 13:48; S tart 01/11/19 at 10:00 Potassium Chloride (Klor-Con) 20 meq 1X ONCE PO Last administered on 01/11/19at 12:09; Start 01/11/19 at 12:30; Stop 01/11/19 at 12:31; Status DC Active Scripts Active Prednisone 20 Mg Tablet 30 Mg PO DAILY 4 Days Aspirin Ec (Aspirin) 81 Mg Tablet.dr 81 Mg PO DAILYWBKFT Amox Tr-K Clv 875-125 Mg Tab (Amoxicillin/Potassium Clav) 1 Each Tablet 1 Tab PO BID Reported Senna (Sennosides) 8.6 Mg Tablet 8.6 Mg PO BID Zoloft (Sertraline Hcl) 100 Mg Tablet 100 Mg PO DAILY Amlodipine Besylate 5 Mg Tablet 5 Mg PO DAILY Coreg (Carvedilol) 25 Mg Tablet 25 Mg PO BID Lidocaine 1 Each Adh..patch 1 Each TP DAILY FENTANYL 12mcg/hr (Fentanyl) 1 Each Patch.td72 1 Patch TD Q72H Xanax (Alprazolam) 0.5 Mg Tablet 1 Tab PO BID Lyrica (Pregabalin) 75 Mg Capsule 75 Mg PO BID Omeprazole 20 Mg Capsule.dr 20 Mg PO BID Duoneb 0.5-3(2.5) Mg/3 Ml (Albuterol/Ipratropium) 3 Ml Ampul.neb 3 Ml NEB PRN Q4HRS PRN Ambien (Zolpidem Tartrate) 5 Mg Tablet 5 Mg PO PRN QHS PRN Hydrocodone-Apap 5-325 (Hydrocodone Bit/Acetaminophen) 1 Tab Tablet 1 Tab PO PRN Q8HRS PRN Vitamin D (Cholecalciferol (Vitamin D3)) 1,000 Unit Capsule 1 Cap PO DAILY Advair 250-50 Diskus (Fluticasone/Salmeterol) 1 Each Disk.w.dev 1 Puff IH BID Multi-Day Vitamins (Multivitamin) 1 Each Tablet 1 Tab PO DAILY Colace (Docusate Sodium) 100 Mg Capsule 100 Mg PO BID Vitals/I & O Vital Sign - Last 24 Hours 01/10/19 01/10/19 01/10/19 01/10/19 16:17 16:18 17:18 19:04 Temp 97.9 97.9 Pulse 82 74 Resp 18 B/P (MAP) 137/68 132/50 (77) Pulse Ox 96 96 97 O2 Delivery Nasal Cannula Nasal Cannula Nasal Cannula O2 Flow Rate 3.0 3.0 3.0 01/10/19 01/10/19 01/10/19 01/11/19 20:00 21:23 22:38 03:10 Temp 98.0 98.2 98.0 98.2 Pulse 74 76 Resp 18 18 B/P (MAP) 134/55 (81) 152/65 (94) Pulse Ox 98 98 97 O2 Delivery Nasal Cannula Nasal Cannula Nasal Cannula Nasal Cannula O2 Flow Rate 3.0 3.0 3.0 3.0 01/11/19 01/11/19 01/11/19 01/11/19 07:09 07:12 08:00 08:19 Temp 98.6 98.6 Pulse 89 89 Resp 18 B/P (MAP) 144/52 (82) 144/52 Pulse Ox 99 99 O2 Delivery Nasal Cannula Nasal Cannula Nasal Cannula O2 Flow Rate 3.0 3.0 3.0 01/11/19 01/11/19 01/11/19 01/11/19 08:19 10:42 11:22 14:17 Temp 98.0 98.0 98.0 98.0 Pulse 89 68 66 Resp 18 18 B/P (MAP) 144/52 118/48 (71) 121/44 (69) Pulse Ox 97 99 99 O2 Delivery Nasal Cannula Nasal Cannula Nasal Cannula O2 Flow Rate 3.0 3.0 3.0 Intake and Output 01/10/19 01/10/19 01/11/19 15:00 23:00 07:00 Intake Total 150 ml 200 ml 270 ml Output Total 175 ml 350 ml 800 ml Balance -25 ml -150 ml -530 ml CECILIA NIXON MD Jan 11, 2019 15:31
--- NOTE | 2019-01-11 15:42 | NUR ---
SS following up with discharge planning. PT evaluated and recommended halfway unit at discharge. SS met with pt and discussed with pt's family via phone. Pt and pt's family agreeable to halfway unit and requested that pt go to [facility], ; fax [phone], due to previous experience. SS phoned and faxed referral to [facility]. SS will await acceptance decision and will proceed accordingly with discharge planning.
[2019-01-11 19:30] VITALS: BP 146/62
[2019-01-11 23:45] VITALS: BP 132/53
[2019-01-12] MEDS: HYDROcodone/APAP 5/325MG 1 TAB TABLET PO PRN ×2 (02:33→16:16)
[2019-01-12 03:45] VITALS: BP 141/52
[2019-01-12 04:55] LABS: BASO # 0.1 x10^3/uL (0.0-0.2); BASO % 1 % (0-3); EOS # 0.2 x10^3/uL (0.0-0.7); EOS % 2 % (0-3); HEMATOCRIT 31.2 % (36.0-47.0); HEMOGLOBIN 9.6 g/dL (12.0-15.5); LYMPH % 9 % (24-48); MEAN CORPUSCULAR HEMOGLOBIN 24 pg (25-35); MEAN CORPUSCULAR HGB CONC 31 g/dL (31-37); MEAN CORPUSCULAR VOLUME 77 fL (79-100); MONO # 0.7 x10^3/uL (0.0-1.1); MONO % 6 % (0-9); NEUT # 9.3 x10^3/uL (1.8-7.7); NEUT % 82 % (31-73); PLATELET COUNT 255 x10^3/uL (140-400); RED BLOOD COUNT 4.04 x10^6/uL (3.50-5.40); RED CELL DISTRIBUTION WIDTH 16.8 % (11.5-14.5); WHITE BLOOD COUNT 11.3 x10^3/uL (4.0-11.0)
[2019-01-12 05:19] LABS: CALCIUM 9.2 mg/dL (8.5-10.1); CREATININE 0.7 mg/dL (0.6-1.0); GFR 79.2; MAGNESIUM 1.9 mg/dL (1.8-2.4); POTASSIUM 4.2 mmol/L (3.5-5.1)
[2019-01-12 07:00] VITALS: BP 158/61
[2019-01-12] MEDS: IPRATRPIUM/ALBUTEROL 0.5/2.5MG 3 ML NEBU. NEB SCH ×4 (07:23→19:35)
[2019-01-12] MEDS: POTASSIUM CHLORIDE 20 MEQ TABLET.ER. PO SCH (08:14)
[2019-01-12] MEDS: ASPIRIN ENTERIC COATED 81 MG TABLET.DR. PO SCH (08:14)
[2019-01-12] MEDS: MULTIVITAMIN I-VITE TABLET. PO SCH (08:15)
[2019-01-12] MEDS: CARVEDILOL 6.25 MG TABLET. PO SCH ×2 (08:15→17:57)
[2019-01-12] MEDS: PANTOPRAZOLE 40 MG TABLET.DR. PO SCH (08:15)
[2019-01-12] MEDS: PREGABALIN 25 MG CAPSULE PO SCH ×2 (08:15→21:10)
[2019-01-12] MEDS: amLODIPine BESYLATE 10 MG TABLET PO SCH (08:16)
[2019-01-12] MEDS: CEPHALEXIN 250 MG CAPSULE. PO SCH ×3 (08:16→21:10)
[2019-01-12] MEDS: HYDROXYCHLOROQUINE 200 MG TABLET PO SCH ×2 (08:16→21:10)
[2019-01-12] MEDS: SERTRALINE 50 MG TABLET. PO SCH (08:16)
[2019-01-12] MEDS: CHOLECALCIFEROL (VITAMIN D3) 1,000 UNIT TABLET PO SCH (08:16)
[2019-01-12] MEDS: ASCORBIC ACID 500 MG TABLET PO SCH (08:16)
--- NOTE | 2019-01-12 11:09 | PDOC ---
PROGRESS NOTES Subjective Subjective complains of lower abdominal pain and has tenderness. did not eat breakfast. had a BM yesterday. has purewick.lab reviewed. alert. family at bedside. discussed with nurse. Objective Objective Vital Signs Date Time Temp Pulse Resp B/P (MAP) Pulse Ox O2 Delivery O2 Flow Rate FiO2 01/12/19 08:16 77 158/61 01/12/19 08:00 Nasal Cannula 2.0 01/12/19 07:29 87 01/12/19 07:00 98.7 24 98.7 Intake and Output 01/12/19 07:00 Intake Total 1000 ml Output Total 250 ml Balance 750 ml Intake Oral 1000 ml Output Urine Total 250 ml # Voids 2 # Bowel Movements 4 Physical Exam Abdomen: Soft, Other (lower abdominal tenderness . no guarding. ) Extremities: No edema General: Alert HEENT: Atraumatic Lungs: Clear to auscultation Neuro: Normal speech Psych/Mental Status: Mental status NL Skin: No rashes Assessment Assessment ProblemsNon-ST segment elevated myocardial infarction. 2. Acute on chronic diastolic congestive heart failure. compensated 3. Group B streptococcus bacteremia now on keflex 4. 5. Hyperlipidemia with statin intolerance. 6. Acute kidney injury. due to dehydration resolved 7. Acute on chronic hypoxic respiratory failure. 8. Fibromyalgia. 9. Chronic pain. 10. Fever. resolved 11. Diarrhea. resolved 12. Anemia of chronic disease with some progression in the anemia. 13. Thrombocytopenia. resolved 14. Chronic obstructive pulmonary disease. 15. Severe protein-calorie malnutrition. 16. Metabolic encephalopathy. diabetes mellitus type 2 with peripheral neuropathy hypertension. moderate mitral stenosis per echo lower abdominal pain Medical Problems: (1) Acute and chronic respiratory failure Status: Acute (2) CHF exacerbation Status: Acute (3) Elevated troponin Status: Acute Plan Plan of Care stat ct scan of abdomen and pelvis without iv contrast lab tomorrow continue keflex Comment Review of Relevant I have reviewed the following items lizbeth (where applicable) has been applied. Labs Laboratory Tests Test 01/10/19 13:02 01/10/19 16:27 01/10/19 21:12 01/11/19 03:30 Glucose (Fingerstick) 179 mg/dL (70-99) 139 mg/dL (70-99) 180 mg/dL (70-99) White Blood Count 13.2 x10^3/uL (4.0-11.0) Red Blood Count 4.12 x10^6/uL (3.50-5.40) Hemoglobin 9.8 g/dL (12.0-15.5) Hematocrit 31.9 % (36.0-47.0) Mean Corpuscular Volume 78 fL (79-100) Mean Corpuscular Hemoglobin 24 pg (25-35) Mean Corpuscular Hemoglobin Concent 31 g/dL (31-37) Red Cell Distribution Width 16.9 % (11.5-14.5) Platelet Count 219 x10^3/uL (140-400) Neutrophils (%) (Auto) 89 % (31-73) Lymphocytes (%) (Auto) 4 % (24-48) Monocytes (%) (Auto) 6 % (0-9) Eosinophils (%) (Auto) 1 % (0-3) Basophils (%) (Auto) 0 % (0-3) Neutrophils # (Auto) 11.7 x10^3/uL (1.8-7.7) Lymphocytes # (Auto) 0.5 x10^3/uL (1.0-4.8) Monocytes # (Auto) 0.8 x10^3/uL (0.0-1.1) Eosinophils # (Auto) 0.1 x10^3/uL (0.0-0.7) Basophils # (Auto) 0.1 x10^3/uL (0.0-0.2) Sodium Level 140 mmol/L (136-145) Potassium Level 2.8 mmol/L (3.5-5.1) Chloride Level 97 mmol/L (98-107) Carbon Dioxide Level 36 mmol/L (21-32) Anion Gap 7 (6-14) Blood Urea Nitrogen 22 mg/dL (7-20) Creatinine 0.8 mg/dL (0.6-1.0) Estimated GFR (Cockcroft-Gault) 67.8 Glucose Level 151 mg/dL (70-99) Calcium Level 9.5 mg/dL (8.5-10.1) Magnesium Level 2.1 mg/dL (1.8-2.4) Test 01/11/19 07:14 01/11/19 08:35 01/11/19 11:00 01/12/19 04:30 Glucose (Fingerstick) 140 mg/dL (70-99) Nasal Screen MRSA (PCR) Positive (Negative) Potassium Level 3.5 mmol/L (3.5-5.1) 4.2 mmol/L (3.5-5.1) White Blood Count 11.3 x10^3/uL (4.0-11.0) Red Blood Count 4.04 x10^6/uL (3.50-5.40) Hemoglobin 9.6 g/dL (12.0-15.5) Hematocrit 31.2 % (36.0-47.0) Mean Corpuscular Volume 77 fL (79-100) Mean Corpuscular Hemoglobin 24 pg (25-35) Mean Corpuscular Hemoglobin Concent 31 g/dL (31-37) Red Cell Distribution Width 16.8 % (11.5-14.5) Platelet Count 255 x10^3/uL (140-400) Neutrophils (%) (Auto) 82 % (31-73) Lymphocytes (%) (Auto) 9 % (24-48) Monocytes (%) (Auto) 6 % (0-9) Eosinophils (%) (Auto) 2 % (0-3) Basophils (%) (Auto) 1 % (0-3) Neutrophils # (Auto) 9.3 x10^3/uL (1.8-7.7) Lymphocytes # (Auto) 1.0 x10^3/uL (1.0-4.8) Monocytes # (Auto) 0.7 x10^3/uL (0.0-1.1) Eosinophils # (Auto) 0.2 x10^3/uL (0.0-0.7) Basophils # (Auto) 0.1 x10^3/uL (0.0-0.2) Sodium Level 137 mmol/L (136-145) Chloride Level 97 mmol/L (98-107) Carbon Dioxide Level 36 mmol/L (21-32) Anion Gap 4 (6-14) Blood Urea Nitrogen 21 mg/dL (7-20) Creatinine 0.7 mg/dL (0.6-1.0) Estimated GFR (Cockcroft-Gault) 79.2 Glucose Level 112 mg/dL (70-99) Calcium Level 9.2 mg/dL (8.5-10.1) Magnesium Level 1.9 mg/dL (1.8-2.4) Laboratory Tests Test 01/12/19 04:30 White Blood Count 11.3 x10^3/uL (4.0-11.0) Red Blood Count 4.04 x10^6/uL (3.50-5.40) Hemoglobin 9.6 g/dL (12.0-15.5) Hematocrit 31.2 % (36.0-47.0) Mean Corpuscular Volume 77 fL (79-100) Mean Corpuscular Hemoglobin 24 pg (25-35) Mean Corpuscular Hemoglobin Concent 31 g/dL (31-37) Red Cell Distribution Width 16.8 % (11.5-14.5) Platelet Count 255 x10^3/uL (140-400) Neutrophils (%) (Auto) 82 % (31-73) Lymphocytes (%) (Auto) 9 % (24-48) Monocytes (%) (Auto) 6 % (0-9) Eosinophils (%) (Auto) 2 % (0-3) Basophils (%) (Auto) 1 % (0-3) Neutrophils # (Auto) 9.3 x10^3/uL (1.8-7.7) Lymphocytes # (Auto) 1.0 x10^3/uL (1.0-4.8) Monocytes # (Auto) 0.7 x10^3/uL (0.0-1.1) Eosinophils # (Auto) 0.2 x10^3/uL (0.0-0.7) Basophils # (Auto) 0.1 x10^3/uL (0.0-0.2) Sodium Level 137 mmol/L (136-145) Potassium Level 4.2 mmol/L (3.5-5.1) Chloride Level 97 mmol/L (98-107) Carbon Dioxide Level 36 mmol/L (21-32) Anion Gap 4 (6-14) Blood Urea Nitrogen 21 mg/dL (7-20) Creatinine 0.7 mg/dL (0.6-1.0) Estimated GFR (Cockcroft-Gault) 79.2 Glucose Level 112 mg/dL (70-99) Calcium Level 9.2 mg/dL (8.5-10.1) Magnesium Level 1.9 mg/dL (1.8-2.4) Microbiology 01/04/19 Blood Culture - Final, Complete NO GROWTH AFTER 5 DAYS 01/04/19 Urine Culture - Final, Complete 01/04/19 Urine Culture Result 1 (NIKOLAS) - Final, Complete Medications Current Medications Albuterol/ Ipratropium (Duoneb) 3 ml 1X ONCE NEB Last administered on 01/04/19at 10:45; Start 01/04/19 at 10:45; Stop 01/04/19 at 10:46; Status DC Furosemide (Lasix) 40 mg 1X ONCE IVP Last administered on 01/04/19at 11:07; Start 01/04/19 at 10:45; Stop 01/04/19 at 10:46; Status DC Heparin Sodium/ Dextrose 500 ml @ 16.3 mls/hr CONT PRN IV protocol Last administered on 01/04/19at 13:30; Start 01/04/19 at 11:45; Stop 01/05/19 at 11:04; Status DC Heparin Sodium (Porcine) (Heparin Sodium) 1,700 unit PRN Q6HRS PRN IV FOR UFH LEVEL LESS THAN 0.2; Start 01/04/19 at 11:45; Stop 01/05/19 at 11:04; Status DC Ondansetron HCl (Zofran) 4 mg PRN Q8HRS PRN IV NAUSEA/VOMITING; Start 01/04/19 at 11:45; Stop 01/05/19 at 11:44; Status DC Acetaminophen (Tylenol) 650 mg PRN Q4HRS PRN PO FEVER; Start 01/04/19 at 11:45 ; Stop 01/05/19 at 11:44; Status DC Nitroglycerin (Nitrostat) 0.4 mg PRN Q5MIN PRN SL CHEST PAIN; Start 01/04/19 at 11:45; Stop 01/04/19 at 18:59; Status DC Albuterol/ Ipratropium (Duoneb) 3 ml RTQID NEB Last administered on 01/05/19at 11:43; Start 01/04/19 at 12:00; Stop 01/05/19 at 11:59; Status DC Heparin Sodium (Porcine) (Heparin Sodium) 4,000 unit 1X ONCE IV Last a dministered on 01/04/19at 13:28; Start 01/04/19 at 13:30; Stop 01/04/19 at 13:31; Status DC Carvedilol (Coreg) 6.25 mg BIDWMEALS PO Last administered on 01/08/19at 17:33; Start 01/04/19 at 17:00; Stop 01/09/19 at 10:29; Status DC Aspirin (Ede Aspirin) 325 mg 1X ONCE PO Last administered on 01/04/19at 15:17; Start 01/04/19 at 13:15; Stop 01/04/19 at 13:47; Status DC Aspirin (Children'S Aspirin) 81 mg DAILYWBKFT PO Last administered on 01/10/19at 08:40; Start 01/05/19 at 08:00; Stop 01/10/19 at 13:38; Status DC Alprazolam (Xanax) 0.5 mg BID PO Last administered on 01/06/19at 07:56; Start 01/04/19 at 21:00; Stop 01/06/19 at 10:19; Status DC Fentanyl (Duragesic 12mcg/ Hr Patch) 1 patch Q3DAYS TD ; Start 01/05/19 at 09:00; Stop 01/04/19 at 18:59; Status DC Pregabalin (Lyrica) 75 mg BID PO Last administered on 01/06/19at 07:57; Start 01/04/19 at 21:00; Stop 01/06/19 at 10:19; Status DC Acetaminophen/ Hydrocodone Bitart (Lortab 5/325) 1 tab PRN BID PRN PO PAIN Last administered on 01/12/19at 02:33; Start 01/04/19 at 13:15 Pantoprazole Sodium (Protonix) 40 mg DAILY PO Last administered on 01/12/19at 08:15; Start 01/05/19 at 09:00 Hydroxychloroquine Sulfate (Plaquenil) 200 mg BID PO Last administered on 01/12/19at 08:16; Start 01/04/19 at 21:00 Sertraline HCl (Zoloft) 100 mg DAILY PO Last administered on 01/06/19at 07:57; Start 01/05/19 at 09:00; Stop 01/06/19 at 10:19; Status DC Zolpidem Tartrate (Ambien) 5 mg PRN QHS PRN PO INSOMNIA; Start 01/04/19 at 13:15; Stop 01/07/19 at 10:27; Status DC Ondansetron HCl (Zofran Odt) 4 mg PRN Q6HRS PRN PO NAUSEA Last administered on 01/11/19 08:18; Start 01/04/19 at 13:15 Vitamin D (Vitamin D3) 1,000 unit DAILY PO Last administered on 01/12/19 08:16; Start 01/05/19 at 09:00 Albuterol Sulfate (Ventolin Neb Soln) 2.5 mg PRN Q4HRS PRN NEB WHEEZING Last administered on 01/09/19 03:49; Start 01/04/19 at 13:15; Stop 01/09/19 at 10:39; Status DC Fentanyl (Duragesic 12mcg/ Hr Patch) 1 patch Q3DAYS TD Last administered on 01/07/19 09:06; Start 01/04/19 at 19:00; Stop 01/08/19 at 10:07; Status DC Nitroglycerin (Nitrostat) 0.4 mg PRN Q5MIN PRN SL CHEST PAIN; Start 01/04/19 at 19:00; Stop 01/05/19 at 18:59; Status DC Cefepime HCl (Maxipime) 1 gm Q12HR IVP ; Start 01/04/19 at 21:00; Stop 01/04/19 at 20:40; Status DC Vancomycin HCl (Vanco Per Pharmacy) 1 each 1X PRN PRN MC SEE COMMENTS Last administered on 01/04/19at 21:25; Start 01/04/19 at 19:45; Stop 01/05/19 at 07:50; Status DC Vancomycin HCl 1.75 gm/Sodium Chloride 500 ml @ 250 mls/hr 1X ONCE IV ; Start 01/04/19 at 20:45; Stop 01/04/19 at 22:44; Status Cancel Cefepime HCl (Maxipime) 1 gm QHS IVP Last administered on 01/04/19at 23:17; Start 01/04/19 at 21:00; Stop 01/05/19 at 09:49; Status DC Vancomycin HCl 1.5 gm/Sodium Chloride 500 ml @ 250 mls/hr 1X ONCE IV Last administered on 01/04/19at 21:19; Start 01/04/19 at 21:00; Stop 01/04/19 at 22:59; Status DC Info (Anti-Coagulation Monitoring By Pharmacy) 1 each PRN DAILY PRN MC SEE COMMENTS Last administered on 01/05/19at 10:49; Start 01/04/19 at 21:30; Stop 01/08/19 at 10:59; Status DC Vancomycin HCl 1 gm/Sodium Chloride 250 ml @ 250 mls/hr Q48H IV ; Start 01/06/19 at 21:00; Stop 01/05/19 at 10:30; Status DC Vancomycin HCl (Vanco Per Pharmacy) 1 each PRN DAILY PRN MC SEE COMMENTS Last administered on 01/06/19at 23:25; Start 01/05/19 at 07:45; Stop 01/08/19 at 10:59; Status DC Cefepime HCl (Maxipime) 1 gm BID IVP Last administered on 01/07/19at 22:21; Start 01/05/19 at 10:00; Stop 01/08/19 at 07:11; Status DC Vancomycin HCl 1 gm/Sodium Chloride 250 ml @ 250 mls/hr QHS IV Last administered on 01/05/19at 21:15; Start 01/05/19 at 21:00; Stop 01/06/19 at 22:44; Status DC Vancomycin HCl (Vancomycin Trough Level) 1 each 1X ONCE MC Last administered on 01/06/19at 20:30; Start 01/06/19 at 20:30; Stop 01/06/19 at 20:31; Status DC Enoxaparin Sodium (Lovenox 40mg Syringe) 40 mg Q24H SQ Last administered on 01/11/19at 12:09; Start 01/05/19 at 12:00 Magnesium Sulfate 50 ml @ 25 mls/hr 1X ONCE IV Last administered on 01/05/19at 12:32; Start 01/05/19 at 11:15; Stop 01/05/19 at 13:14; Status DC Alprazolam (Xanax) 0.25 mg PRN BID PRN PO ANXIETY / AGITATION; Start 01/06/19 at 10:30; Stop 01/07/19 at 10:27; Status DC Pregabalin (Lyrica) 50 mg BID PO ; Start 01/06/19 at 11:00; Stop 01/06/19 at 11:04; Status DC Mirtazapine (Remeron) 15 mg QHS PO Last administered on 01/06/19at 21:21; Start 01/06/19 at 21:00; Stop 01/07/19 at 10:27; Status DC Pregabalin (Lyrica) 50 mg BID PO Last administered on 01/08/19 08:12; Start 01/06/19 at 21:00; Stop 01/08/19 at 10:01; Status DC Vancomycin HCl 1.25 gm/Sodium Chloride 250 ml @ 167 mls/hr Q24H IV Last administered on 01/07/19at 22:21; Start 01/06/19 at 23:00; Stop 01/08/19 at 07:11; Status DC Vancomycin HCl (Vancomycin Trough Level) 1 each 1X ONCE MC ; Start 01/08/19 at 22:30; Stop 01/08/19 at 11:06; Status DC Mirtazapine (Remeron) 7.5 mg QHS PO Last administered on 01/09/19at 20:48; Start 01/07/19 at 21:00; Stop 01/10/19 at 11:55; Status DC Lactobacillus Rhamnosus (Culturelle) 1 cap BID PO Last administered on 01/08/19 08:13; Start 01/07/19 at 21:00; Stop 01/08/19 at 11:05; Status DC Amlodipine Besylate (Norvasc) 5 mg DAILY PO Last administered on 01/08/19 08:13; Start 01/07/19 at 18:00; Stop 01/09/19 at 11:00; Status DC Ceftriaxone Sodium (Rocephin) 2 gm Q24H IVP Last administered on 01/11/19at 08:16; Start 01/08/19 at 07:30; Stop 01/11/19 at 09:20; Status DC Pregabalin (Lyrica) 25 mg BID PO Last administered on 01/12/19at 08:15; Start 01/08/19 at 21:00 Carvedilol (Coreg) 12.5 mg BIDWMEALS PO ; Start 01/09/19 at 10:30; Stop 01/09/19 at 11:00; Status DC Albuterol/ Ipratropium (Duoneb) 3 ml RTQID NEB Last administered on 01/12/19at 07:23; Start 01/09/19 at 12:00 Albuterol Sulfate (Ventolin Neb Soln) 2.5 mg PRN Q4HRS PRN NEB SHORTNESS OF BREATH; Start 01/09/19 at 10:45 Amlodipine Besylate (Norvasc) 10 mg DAILY PO Last administered on 01/12/19 08:16; Start 01/10/19 at 09:00 Carvedilol (Coreg) 6.25 mg BIDWMEALS PO Last administered on 01/12/19 08:15; Start 01/09/19 at 17:00 Amlodipine Besylate (Norvasc) 5 mg 1X ONCE PO Last administered on 01/09/19 11:00; Start 01/09/19 at 11:00; Stop 01/09/19 at 11:04; Status DC Furosemide (Lasix) 40 mg 1X ONCE IVP Last administered on 01/09/19at 13:49; Start 01/09/19 at 11:45; Stop 01/09/19 at 11:46; Status DC Potassium Chloride (Klor-Con) 20 meq 1X ONCE PO Last administered on 01/09/19at 13:50; Start 01/09/19 at 11:45; Stop 01/09/19 at 11:46; Status DC Furosemide (Lasix) 40 mg 1X ONCE IVP ; Start 01/10/19 at 09:15; Stop 01/10/19 at 09:17; Status DC Furosemide (Lasix) 20 mg 1X ONCE IVP Last administered on 01/10/19at 13:05; Start 01/10/19 at 10:45; Stop 01/11/19 at 06:22; Status DC Potassium Chloride (Klor-Con) 20 meq 1X ONCE PO Last administered on 01/10/19at 13:04; Start 01/10/19 at 10:45; Stop 01/10/19 at 10:46; Status DC Furosemide (Lasix) 20 mg DAILY PO ; Start 01/11/19 at 09:00; Stop 01/11/19 at 06:22; Status DC Aspirin (Ecotrin) 81 mg DAILYWBKFT PO Last administered on 01/12/19at 08:14; Start 01/10/19 at 11:00 Sertraline HCl (Zoloft) 50 mg DAILY PO Last administered on 12/7/19at 08:16; Start 01/10/19 at 13:00 Magnesium Sulfate 50 ml @ 25 mls/hr 1X ONCE IV Last administered on 01/10/19at 13:04; Start 01/10/19 at 12:30; Stop 01/10/19 at 14:29; Status DC Potassium Chloride (Klor-Con) 20 meq DAILYWBKFT PO Last administered on 01/12/19at 08:14; Start 01/11/19 at 08:00 Lactulose (Lactulose) 20 gm 1X ONCE PO Last administered on 01/10/19at 17:46; Start 01/10/19 at 17:00; Stop 01/10/19 at 17:01; Status DC Lactulose (Lactulose) 20 gm 1X ONCE PO Last administered on 01/10/19at 16:18; Start 01/10/19 at 16:00; Stop 01/10/19 at 16:03; Status DC Multivitamins/ Minerals (I-Sarah) 1 tab DAILY PO Last administered on 01/12/19at 08:15; Start 01/11/19 at 09:00 Ascorbic Acid (Vitamin C) 500 mg DAILY PO Last administered on 01/12/19 08:16; Start 01/11/19 at 09:00 Potassium Chloride (Klor-Con) 40 meq 1X ONCE PO Last administered on 01/11/19at 08:17; Start 01/11/19 at 07:00; Stop 01/11/19 at 07:01; Status DC Cephalexin HCl (Keflex) 500 mg TID PO Last administered on 01/12/19 08:16; Start 01/11/19 at 10:00 Potassium Chloride (Klor-Con) 20 meq 1X ONCE PO Last administered on 01/11/19at 12:09; Start 01/11/19 at 12:30; Stop 01/11/19 at 12:31; Status DC Active Scripts Active Prednisone 20 Mg Tablet 30 Mg PO DAILY 4 Days Aspirin Ec (Aspirin) 81 Mg Tablet.dr 81 Mg PO DAILYWBKFT Amox Tr-K Clv 875-125 Mg Tab (Amoxicillin/Potassium Clav) 1 Each Tablet 1 Tab PO BID Reported Senna (Sennosides) 8.6 Mg Tablet 8.6 Mg PO BID Zoloft (Sertraline Hcl) 100 Mg Tablet 100 Mg PO DAILY Amlodipine Besylate 5 Mg Tablet 5 Mg PO DAILY Coreg (Carvedilol) 25 Mg Tablet 25 Mg PO BID Lidocaine 1 Each Adh..patch 1 Each TP DAILY FENTANYL 12mcg/hr (Fentanyl) 1 Each Patch.td72 1 Patch TD Q72H Xanax (Alprazolam) 0.5 Mg Tablet 1 Tab PO BID Lyrica (Pregabalin) 75 Mg Capsule 75 Mg PO BID Omeprazole 20 Mg Capsule.dr 20 Mg PO BID Duoneb 0.5-3(2.5) Mg/3 Ml (Albuterol/Ipratropium) 3 Ml Ampul.neb 3 Ml NEB PRN Q4HRS PRN Ambien (Zolpidem Tartrate) 5 Mg Tablet 5 Mg PO PRN QHS PRN Hydrocodone-Apap 5-325 (Hydrocodone Bit/Acetaminophen) 1 Tab Tablet 1 Tab PO PRN Q8HRS PRN Vitamin D (Cholecalciferol (Vitamin D3)) 1,000 Unit Capsule 1 Cap PO DAILY Advair 250-50 Diskus (Fluticasone/Salmeterol) 1 Each Disk.w.dev 1 Puff IH BID Multi-Day Vitamins (Multivitamin) 1 Each Tablet 1 Tab PO DAILY Colace (Docusate Sodium) 100 Mg Capsule 100 Mg PO BID Vitals/I & O Vital Sign - Last 24 Hours 01/11/19 01/11/19 01/11/19 01/11/19 11:22 14:17 15:36 18:17 Temp 98.0 98.0 Pulse 66 66 Resp 18 B/P (MAP) 121/44 (69) 121/44 Pulse Ox 99 99 O2 Delivery Nasal Cannula Nasal Cannula Nasal Cannula O2 Flow Rate 3.0 3.0 2.0 01/11/19 01/11/19 01/11/19 01/11/19 19:30 19:37 20:00 23:45 Temp 98.2 98.7 98.2 98.7 Pulse 74 70 Resp 22 20 B/P (MAP) 146/62 (90) 132/53 (79) Pulse Ox 98 91 95 O2 Delivery Nasal Cannula Nasal Cannula Nasal Cannula Nasal Cannula O2 Flow Rate 2.0 2.0 2.0 2.0 01/12/19 01/12/19 01/12/19 01/12/19 02:33 03:33 03:45 07:00 Temp 98.6 98.7 98.6 98.7 Pulse 76 81 Resp 24 24 B/P (MAP) 141/52 (81) 158/61 (93) Pulse Ox 94 94 O2 Delivery Nasal Cannula Nasal Cannula Nasal Cannula Nasal Cannula O2 Flow Rate 2.0 2.0 2.0 01/12/19 01/12/19 01/12/19 01/12/19 07:29 08:00 08:15 08:16 Pulse 77 77 B/P (MAP) 158/61 158/61 Pulse Ox 87 O2 Delivery Nasal Cannula O2 Flow Rate 2.0 Intake and Output 01/11/19 01/11/19 01/12/19 15:00 23:00 07:00 Intake Total 600 ml 400 ml Output Total 250 ml Balance 350 ml 400 ml KARAN KIMBLE MD Jan 12, 2019 11:09
[2019-01-12 11:59] VITALS: BP 123/53
--- NOTE | 2019-01-12 13:49 | RAD ---
Study: CT abdomen and pelvis without contrast Indication: Lower abdominal pain. Comparison: 04/14/2017 Technique: Helical CT imaging performed of the abdomen and pelvis without the use of intravenous contrast. Sagittal and coronal reformats were obtained. One or more of the following individualized dose reduction techniques were utilized for this examination: 1. Automated exposure control 2. Adjustment of the mA and/or kV according to patient size 3. Use of iterative reconstruction technique. Findings: Dense mitral annular calcifications. Pacer wires. Lower lung scarring and atelectasis. Pleural-based nodule at the left lower lobe is unchanged. No new suspicious nodule. Several remote rib fractures. Unremarkable liver. Status post cholecystectomy. No discrete pancreatic mass. Numerous splenic granulomas borderline prominent size of the spleen. Unremarkable adrenal glands. Exophytic cystic structure with thin peripheral calcification measures slightly larger from the prior. Nonspecific perinephric fat stranding. No hydroureteronephrosis. Mild urinary bladder distention. Small focus of air within the bladder. Redemonstrated cystic structure adjacent to the right aspect of the bladder dome that is slightly smaller in size from the prior. Absent uterus. No adnexal mass. Unremarkable colon. Nonobstructed small bowel. The stomach is not well evaluated due to collapse. Extensive calcific plaque throughout the aorta and seen at the branch vessel ostia. No aneurysmal dilatation. No adenopathy. No free fluid or air. Extensive streak artifact from a right hip arthroplasty construct. No complication involving the construct is identified. Degenerative changes at the left hip, pubic symphysis and sacroiliac joints. No CT manifestations of a sacral insufficiency fracture. Advanced degenerative changes throughout the visualized spine. Multilevel neural foraminal and central canal stenosis. Central canal encroachment is most pronounced at L3-L4 but is also present at T11-T12 in the setting of a prominent calcific focus at the ventral epidural space. Impression: 1. No acute abnormality is seen throughout the abdomen or pelvis to account for the patient's symptoms. No bowel obstruction. 2. Small focus of air within the urinary bladder of uncertain etiology. Recommend correlation for recent instrumentation. No urinary bladder wall thickening is appreciated to suggest cystitis. A cystic structure is again seen to the right of the bladder dome and is slightly smaller in size from the prior. This again could represent a bladder diverticulum. 3. Slight interval enlargement of a cystic focus exophytic off the right kidney with thin peripheral calcification. This measures 1.5 cm compared to 1.1 cm. Nonemergent renal sonography is recommended to evaluate for complex features. 4. Additional chronic findings as above. Electronically signed by: ANJALI BLAKE MD (01/12/2019 1:46 PM) [facility]
[2019-01-12] MEDS ORDERED: DICYCLOMINE HCL 10 MG CAPSULE PO PRN (14:30)
[2019-01-12] MEDS: ENOXAPARIN 40 MG/0.4 ML SYRINGE. SQ SCH (14:39)
[2019-01-12 15:00] VITALS: BP 145/75
[2019-01-12 19:10] VITALS: BP 115/41
[2019-01-12 23:30] VITALS: BP 169/70
[2019-01-13 03:55] VITALS: BP 164/66
[2019-01-13 06:23] LABS: BASO % 0 % (0-3); EOS # 0.2 x10^3/uL (0.0-0.7); EOS % 1 % (0-3); HEMATOCRIT 34.1 % (36.0-47.0); HEMOGLOBIN 10.4 g/dL (12.0-15.5); LYMPH % 8 % (24-48); MEAN CORPUSCULAR HEMOGLOBIN 24 pg (25-35); MEAN CORPUSCULAR HGB CONC 31 g/dL (31-37); MEAN CORPUSCULAR VOLUME 77 fL (79-100); MONO # 0.7 x10^3/uL (0.0-1.1); MONO % 6 % (0-9); NEUT # 9.9 x10^3/uL (1.8-7.7); NEUT % 84 % (31-73); PLATELET COUNT 300 x10^3/uL (140-400); RED BLOOD COUNT 4.42 x10^6/uL (3.50-5.40); RED CELL DISTRIBUTION WIDTH 16.5 % (11.5-14.5); WHITE BLOOD COUNT 11.8 x10^3/uL (4.0-11.0)
[2019-01-13 06:50] LABS: ALBUMIN 2.7 g/dL (3.4-5.0); ALBUMIN/GLOBULIN RATIO 0.5 (1.0-1.7); CALCIUM 9.3 mg/dL (8.5-10.1); CREATININE 0.6 mg/dL (0.6-1.0); GFR 94.6; TOTAL BILIRUBIN 0.4 mg/dL (0.2-1.0)
[2019-01-13 07:00] VITALS: BP 163/63
[2019-01-13] MEDS: IPRATRPIUM/ALBUTEROL 0.5/2.5MG 3 ML NEBU. NEB SCH ×4 (07:11→19:40)
[2019-01-13] MEDS: MULTIVITAMIN I-VITE TABLET. PO SCH (08:50)
[2019-01-13] MEDS: SERTRALINE 50 MG TABLET. PO SCH (08:51)
[2019-01-13] MEDS: PREGABALIN 25 MG CAPSULE PO SCH ×2 (08:51→19:48)
[2019-01-13] MEDS: HYDROXYCHLOROQUINE 200 MG TABLET PO SCH ×2 (08:51→19:48)
[2019-01-13] MEDS: CARVEDILOL 6.25 MG TABLET. PO SCH ×2 (08:51→17:00)
[2019-01-13] MEDS: CHOLECALCIFEROL (VITAMIN D3) 1,000 UNIT TABLET PO SCH (08:51)
[2019-01-13] MEDS: ASCORBIC ACID 500 MG TABLET PO SCH (08:51)
[2019-01-13] MEDS: amLODIPine BESYLATE 10 MG TABLET PO SCH (08:51)
[2019-01-13] MEDS: ASPIRIN ENTERIC COATED 81 MG TABLET.DR. PO SCH (08:52)
[2019-01-13] MEDS: CEPHALEXIN 250 MG CAPSULE. PO SCH ×3 (08:52→19:49)
[2019-01-13] MEDS: HYDROcodone/APAP 5/325MG 1 TAB TABLET PO PRN (08:52)
--- NOTE | 2019-01-13 10:57 | PDOC ---
PROGRESS NOTES Subjective Subjective feels better. alert. denies abdominal pain. ct abdomen and pelvis is negative. coherent. lab reviewed. Objective Objective Vital Signs Date Time Temp Pulse Resp B/P (MAP) Pulse Ox O2 Delivery O2 Flow Rate FiO2 01/13/19 08:52 Nasal Cannula 3.0 01/13/19 08:51 84 01/13/19 08:51 163/63 01/13/19 07:14 95 01/13/19 07:00 97.6 18 97.6 Intake and Output 01/13/19 07:00 Intake Total 250 ml Output Total 325 ml Balance -75 ml Intake Oral 250 ml Output Urine Total 325 ml # Voids 6 Physical Exam Abdomen: Soft, No tenderness Heart: Regular rate, Normal S1, Normal S2 Extremities: No edema General: Alert Lungs: Clear to auscultation Neuro: Normal speech Psych/Mental Status: Mental status NL Skin: No rashes Assessment Assessment ProblemsNon-ST segment elevated myocardial infarction. 2. Acute on chronic diastolic congestive heart failure. compensated 3. Group B streptococcus bacteremia now on keflex 4. 5. Hyperlipidemia with statin intolerance. 6. Acute kidney injury. due to dehydration resolved 7. Acute on chronic hypoxic respiratory failure. 8. Fibromyalgia. 9. Chronic pain. 10. Fever. resolved 11. Diarrhea. resolved 12. Anemia of chronic disease with some progression in the anemia. 13. Thrombocytopenia. resolved 14. Chronic obstructive pulmonary disease. 15. Severe protein-calorie malnutrition. 16. Metabolic encephalopathy.improved diabetes mellitus type 2 with peripheral neuropathy hypertension. moderate mitral stenosis per echo lower abdominal pain resolved Medical Problems: (1) Acute and chronic respiratory failure Status: Acute (2) CHF exacerbation Status: Acute (3) Elevated troponin Status: Acute Plan Plan of Care dismiss tomorrow to [facility] continue same meds PT and OT Comment Review of Relevant I have reviewed the following items lizbeth (where applicable) has been applied. Labs Laboratory Tests Test 01/11/19 11:00 01/12/19 04:30 01/13/19 06:10 Potassium Level 3.5 mmol/L (3.5-5.1) 4.2 mmol/L (3.5-5.1) 4.0 mmol/L (3.5-5.1) White Blood Count 11.3 x10^3/uL (4.0-11.0) 11.8 x10^3/uL (4.0-11.0) Red Blood Count 4.04 x10^6/uL (3.50-5.40) 4.42 x10^6/uL (3.50-5.40) Hemoglobin 9.6 g/dL (12.0-15.5) 10.4 g/dL (12.0-15.5) Hematocrit 31.2 % (36.0-47.0) 34.1 % (36.0-47.0) Mean Corpuscular Volume 77 fL (79-100) 77 fL (79-100) Mean Corpuscular Hemoglobin 24 pg (25-35) 24 pg (25-35) Mean Corpuscular Hemoglobin Concent 31 g/dL (31-37) 31 g/dL (31-37) Red Cell Distribution Width 16.8 % (11.5-14.5) 16.5 % (11.5-14.5) Platelet Count 255 x10^3/uL (140-400) 300 x10^3/uL (140-400) Neutrophils (%) (Auto) 82 % (31-73) 84 % (31-73) Lymphocytes (%) (Auto) 9 % (24-48) 8 % (24-48) Monocytes (%) (Auto) 6 % (0-9) 6 % (0-9) Eosinophils (%) (Auto) 2 % (0-3) 1 % (0-3) Basophils (%) (Auto) 1 % (0-3) 0 % (0-3) Neutrophils # (Auto) 9.3 x10^3/uL (1.8-7.7) 9.9 x10^3/uL (1.8-7.7) Lymphocytes # (Auto) 1.0 x10^3/uL (1.0-4.8) 1.0 x10^3/uL (1.0-4.8) Monocytes # (Auto) 0.7 x10^3/uL (0.0-1.1) 0.7 x10^3/uL (0.0-1.1) Eosinophils # (Auto) 0.2 x10^3/uL (0.0-0.7) 0.2 x10^3/uL (0.0-0.7) Basophils # (Auto) 0.1 x10^3/uL (0.0-0.2) 0.0 x10^3/uL (0.0-0.2) Sodium Level 137 mmol/L (136-145) 133 mmol/L (136-145) Chloride Level 97 mmol/L (98-107) 95 mmol/L (98-107) Carbon Dioxide Level 36 mmol/L (21-32) 32 mmol/L (21-32) Anion Gap 4 (6-14) 6 (6-14) Blood Urea Nitrogen 21 mg/dL (7-20) 16 mg/dL (7-20) Creatinine 0.7 mg/dL (0.6-1.0) 0.6 mg/dL (0.6-1.0) Estimated GFR (Cockcroft-Gault) 79.2 94.6 Glucose Level 112 mg/dL (70-99) 115 mg/dL (70-99) Calcium Level 9.2 mg/dL (8.5-10.1) 9.3 mg/dL (8.5-10.1) Magnesium Level 1.9 mg/dL (1.8-2.4) BUN/Creatinine Ratio 27 (6-20) Total Bilirubin 0.4 mg/dL (0.2-1.0) Aspartate Amino Transf (AST/SGOT) 27 U/L (15-37) Alanine Aminotransferase (ALT/SGPT) 11 U/L (14-59) Alkaline Phosphatase 76 U/L (46-116) Total Protein 8.0 g/dL (6.4-8.2) Albumin 2.7 g/dL (3.4-5.0) Albumin/Globulin Ratio 0.5 (1.0-1.7) Laboratory Tests Test 01/13/19 06:10 White Blood Count 11.8 x10^3/uL (4.0-11.0) Red Blood Count 4.42 x10^6/uL (3.50-5.40) Hemoglobin 10.4 g/dL (12.0-15.5) Hematocrit 34.1 % (36.0-47.0) Mean Corpuscular Volume 77 fL (79-100) Mean Corpuscular Hemoglobin 24 pg (25-35) Mean Corpuscular Hemoglobin Concent 31 g/dL (31-37) Red Cell Distribution Width 16.5 % (11.5-14.5) Platelet Count 300 x10^3/uL (140-400) Neutrophils (%) (Auto) 84 % (31-73) Lymphocytes (%) (Auto) 8 % (24-48) Monocytes (%) (Auto) 6 % (0-9) Eosinophils (%) (Auto) 1 % (0-3) Basophils (%) (Auto) 0 % (0-3) Neutrophils # (Auto) 9.9 x10^3/uL (1.8-7.7) Lymphocytes # (Auto) 1.0 x10^3/uL (1.0-4.8) Monocytes # (Auto) 0.7 x10^3/uL (0.0-1.1) Eosinophils # (Auto) 0.2 x10^3/uL (0.0-0.7) Basophils # (Auto) 0.0 x10^3/uL (0.0-0.2) Sodium Level 133 mmol/L (136-145) Potassium Level 4.0 mmol/L (3.5-5.1) Chloride Level 95 mmol/L (98-107) Carbon Dioxide Level 32 mmol/L (21-32) Anion Gap 6 (6-14) Blood Urea Nitrogen 16 mg/dL (7-20) Creatinine 0.6 mg/dL (0.6-1.0) Estimated GFR (Cockcroft-Gault) 94.6 BUN/Creatinine Ratio 27 (6-20) Glucose Level 115 mg/dL (70-99) Calcium Level 9.3 mg/dL (8.5-10.1) Total Bilirubin 0.4 mg/dL (0.2-1.0) Aspartate Amino Transf (AST/SGOT) 27 U/L (15-37) Alanine Aminotransferase (ALT/SGPT) 11 U/L (14-59) Alkaline Phosphatase 76 U/L (46-116) Total Protein 8.0 g/dL (6.4-8.2) Albumin 2.7 g/dL (3.4-5.0) Albumin/Globulin Ratio 0.5 (1.0-1.7) Microbiology 01/04/19 Blood Culture - Final, Complete NO GROWTH AFTER 5 DAYS 01/04/19 Urine Culture - Final, Complete 01/04/19 Urine Culture Result 1 (NIKOLAS) - Final, Complete Medications Current Medications Albuterol/ Ipratropium (Duoneb) 3 ml 1X ONCE NEB Last administered on 01/04/19at 10:45; Start 01/04/19 at 10:45; Stop 01/04/19 at 10:46; Status DC Furosemide (Lasix) 40 mg 1X ONCE IVP Last administered on 01/04/19at 11:07; Start 01/04/19 at 10:45; Stop 01/04/19 at 10:46; Status DC Heparin Sodium/ Dextrose 500 ml @ 16.3 mls/hr CONT PRN IV protocol Last administered on 01/04/19at 13:30; Start 01/04/19 at 11:45; Stop 01/05/19 at 1 1:04; Status DC Heparin Sodium (Porcine) (Heparin Sodium) 1,700 unit PRN Q6HRS PRN IV FOR UFH LEVEL LESS THAN 0.2; Start 01/04/19 at 11:45; Stop 01/05/19 at 11:04; Status DC Ondansetron HCl (Zofran) 4 mg PRN Q8HRS PRN IV NAUSEA/VOMITING; Start 01/04/19 at 11:45; Stop 01/05/19 at 11:44; Status DC Acetaminophen (Tylenol) 650 mg PRN Q4HRS PRN PO FEVER; Start 01/04/19 at 11: 45; Stop 01/05/19 at 11:44; Status DC Nitroglycerin (Nitrostat) 0.4 mg PRN Q5MIN PRN SL CHEST PAIN; Start 01/04/19 at 11:45; Stop 01/04/19 at 18:59; Status DC Albuterol/ Ipratropium (Duoneb) 3 ml RTQID NEB Last administered on 01/05/19at 11:43; Start 01/04/19 at 12:00; Stop 01/05/19 at 11:59; Status DC Heparin Sodium (Porcine) (Heparin Sodium) 4,000 unit 1X ONCE IV Last administered on 01/04/19at 13:28; Start 01/04/19 at 13:30; Stop 01/04/19 at 13:31; Status DC Carvedilol (Coreg) 6.25 mg BIDWMEALS PO Last administered on 01/08/19at 17:33; Start 01/04/19 at 17:00; Stop 01/09/19 at 10:29; Status DC Aspirin (Ede Aspirin) 325 mg 1X ONCE PO Last administered on 01/04/19at 15:17; Start 01/04/19 at 13:15; Stop 01/04/19 at 13:47; Status DC Aspirin (Children'S Aspirin) 81 mg DAILYWBKFT PO Last administered on 01/10/19at 08:40; Start 01/05/19 at 08:00; Stop 01/10/19 at 13:38; Status DC Alprazolam (Xanax) 0.5 mg BID PO Last administered on 01/06/19at 07:56; Start 01/04/19 at 21:00; Stop 01/06/19 at 10:19; Status DC Fentanyl (Duragesic 12mcg/ Hr Patch) 1 patch Q3DAYS TD ; Start 01/05/19 at 09:00; Stop 01/04/19 at 18:59; Status DC Pregabalin (Lyrica) 75 mg BID PO Last administered on 01/06/19at 07:57; Start 01/04/19 at 21:00; Stop 01/06/19 at 10:19; Status DC Acetaminophen/ Hydrocodone Bitart (Lortab 5/325) 1 tab PRN BID PRN PO PAIN Last administered on 01/13/19at 08:52; Start 01/04/19 at 13:15 Pantoprazole Sodium (Protonix) 40 mg DAILY PO Last administered on 01/12/19at 08:15; Start 01/05/19 at 09:00 Hydroxychloroquine Sulfate (Plaquenil) 200 mg BID PO Last administered on 01/13/19at 08:51; Start 01/04/19 at 21:00 Sertraline HCl (Zoloft) 100 mg DAILY PO Last administered on 01/06/19at 07:57; Start 01/05/19 at 09:00; Stop 01/06/19 at 10:19; Status DC Zolpidem Tartrate (Ambien) 5 mg PRN QHS PRN PO INSOMNIA; Start 01/04/19 at 13:15; Stop 01/07/19 at 10:27; Status DC Ondansetron HCl (Zofran Odt) 4 mg PRN Q6HRS PRN PO NAUSEA Last administered on 01/11/19 08:18; Start 01/04/19 at 13:15 Vitamin D (Vitamin D3) 1,000 unit DAILY PO Last administered on 01/13/19 08:51; Start 01/05/19 at 09:00 Albuterol Sulfate (Ventolin Neb Soln) 2.5 mg PRN Q4HRS PRN NEB WHEEZING Last administered on 01/09/19 03:49; Start 01/04/19 at 13:15; Stop 01/09/19 at 10:39; Status DC Fentanyl (Duragesic 12mcg/ Hr Patch) 1 patch Q3DAYS TD Last administered on 01/07/19 09:06; Start 01/04/19 at 19:00; Stop 01/08/19 at 10:07; Status DC Nitroglycerin (Nitrostat) 0.4 mg PRN Q5MIN PRN SL CHEST PAIN; Start 01/04/19 at 19:00; Stop 01/05/19 at 18:59; Status DC Cefepime HCl (Maxipime) 1 gm Q12HR IVP ; Start 01/04/19 at 21:00; Stop 01/04/19 at 20:40; Status DC Vancomycin HCl (Vanco Per Pharmacy) 1 each 1X PRN PRN MC SEE COMMENTS Last administered on 01/04/19at 21:25; Start 01/04/19 at 19:45; Stop 01/05/19 at 07:50; Status DC Vancomycin HCl 1.75 gm/Sodium Chloride 500 ml @ 250 mls/hr 1X ONCE IV ; Start 01/04/19 at 20:45; Stop 01/04/19 at 22:44; Status Cancel Cefepime HCl (Maxipime) 1 gm QHS IVP Last administered on 01/04/19at 23:17; Start 01/04/19 at 21:00; Stop 01/05/19 at 09:49; Status DC Vancomycin HCl 1.5 gm/Sodium Chloride 500 ml @ 250 mls/hr 1X ONCE IV Last administered on 01/04/19at 21:19; Start 01/04/19 at 21:00; Stop 01/04/19 at 22:59; Status DC Info (Anti-Coagulation Monitoring By Pharmacy) 1 each PRN DAILY PRN MC SEE COMMENTS Last administered on 01/05/19at 10:49; Start 01/04/19 at 21:30; Stop 01/08/19 at 10:59; Status DC Vancomycin HCl 1 gm/Sodium Chloride 250 ml @ 250 mls/hr Q48H IV ; Start 01/06/19 at 21:00; Stop 01/05/19 at 10:30; Status DC Vancomycin HCl (Vanco Per Pharmacy) 1 each PRN DAILY PRN MC SEE COMMENTS Last administered on 01/06/19at 23:25; Start 01/05/19 at 07:45; Stop 01/08/19 at 10:59; Status DC Cefepime HCl (Maxipime) 1 gm BID IVP Last administered on 01/07/19at 22:21; Start 01/05/19 at 10:00; Stop 01/08/19 at 07:11; Status DC Vancomycin HCl 1 gm/Sodium Chloride 250 ml @ 250 mls/hr QHS IV Last administered on 01/05/19at 21:15; Start 01/05/19 at 21:00; Stop 01/06/19 at 22:44; Status DC Vancomycin HCl (Vancomycin Trough Level) 1 each 1X ONCE MC Last administered on 01/06/19at 20:30; Start 01/06/19 at 20:30; Stop 01/06/19 at 20:31; Status DC Enoxaparin Sodium (Lovenox 40mg Syringe) 40 mg Q24H SQ Last administered on 01/12/19at 14:39; Start 01/05/19 at 12:00 Magnesium Sulfate 50 ml @ 25 mls/hr 1X ONCE IV Last administered on 01/05/19at 12:32; Start 01/05/19 at 11:15; Stop 01/05/19 at 13:14; Status DC Alprazolam (Xanax) 0.25 mg PRN BID PRN PO ANXIETY / AGITATION; Start 01/06/19 at 10:30; Stop 01/07/19 at 10:27; Status DC Pregabalin (Lyrica) 50 mg BID PO ; Start 01/06/19 at 11:00; Stop 01/06/19 at 11:04; Status DC Mirtazapine (Remeron) 15 mg QHS PO Last administered on 01/06/19at 21:21; Start 01/06/19 at 21:00; Stop 01/07/19 at 10:27; Status DC Pregabalin (Lyrica) 50 mg BID PO Last administered on 01/08/19at 08:12; Start 01/06/19 at 21:00; Stop 01/08/19 at 10:01; Status DC Vancomycin HCl 1.25 gm/Sodium Chloride 250 ml @ 167 mls/hr Q24H IV Last administered on 01/07/19at 22:21; Start 01/06/19 at 23:00; Stop 01/08/19 at 07:11; Status DC Vancomycin HCl (Vancomycin Trough Level) 1 each 1X ONCE MC ; Start 01/08/19 at 22:30; Stop 01/08/19 at 11:06; Status DC Mirtazapine (Remeron) 7.5 mg QHS PO Last administered on 01/09/19at 20:48; Start 01/07/19 at 21:00; Stop 01/10/19 at 11:55; Status DC Lactobacillus Rhamnosus (Culturelle) 1 cap BID PO Last administered on 01/08/19at 08:13; Start 01/07/19 at 21:00; Stop 01/08/19 at 11:05; Status DC Amlodipine Besylate (Norvasc) 5 mg DAILY PO Last administered on 01/08/19at 08:13; Start 01/07/19 at 18:00; Stop 01/09/19 at 11:00; Status DC Ceftriaxone Sodium (Rocephin) 2 gm Q24H IVP Last administered on 01/11/19at 08:16; Start 01/08/19 at 07:30; Stop 01/11/19 at 09:20; Status DC Pregabalin (Lyrica) 25 mg BID PO Last administered on 01/13/19at 08:51; Start 01/08/19 at 21:00 Carvedilol (Coreg) 12.5 mg BIDWMEALS PO ; Start 01/09/19 at 10:30; Stop 01/09/19 at 11:00; Status DC Albuterol/ Ipratropium (Duoneb) 3 ml RTQID NEB Last administered on 01/13/19at 07:11; Start 01/09/19 at 12:00 Albuterol Sulfate (Ventolin Neb Soln) 2.5 mg PRN Q4HRS PRN NEB SHORTNESS OF BREATH; Start 01/09/19 at 10:45 Amlodipine Besylate (Norvasc) 10 mg DAILY PO Last administered on 01/13/19 08:51; Start 01/10/19 at 09:00 Carvedilol (Coreg) 6.25 mg BIDWMEALS PO Last administered on 01/13/19 08:51; Start 01/09/19 at 17:00 Amlodipine Besylate (Norvasc) 5 mg 1X ONCE PO Last administered on 01/09/19at 11:00; Start 01/09/19 at 11:00; Stop 01/09/19 at 11:04; Status DC Furosemide (Lasix) 40 mg 1X ONCE IVP Last administered on 01/09/19 13:49; Start 01/09/19 at 11:45; Stop 01/09/19 at 11:46; Status DC Potassium Chloride (Klor-Con) 20 meq 1X ONCE PO Last administered on 01/09/19at 13:50; Start 01/09/19 at 11:45; Stop 01/09/19 at 11:46; Status DC Furosemide (Lasix) 40 mg 1X ONCE IVP ; Start 01/10/19 at 09:15; Stop 01/10/19 at 09:17; Status DC Furosemide (Lasix) 20 mg 1X ONCE IVP Last administered on 01/10/19at 13:05; Start 01/10/19 at 10:45; Stop 01/11/19 at 06:22; Status DC Potassium Chloride (Klor-Con) 20 meq 1X ONCE PO Last administered on 01/10/19at 13:04; Start 01/10/19 at 10:45; Stop 01/10/19 at 10:46; Status DC Furosemide (Lasix) 20 mg DAILY PO ; Start 01/11/19 at 09:00; Stop 01/11/19 at 06:22; Status DC Aspirin (Ecotrin) 81 mg DAILYWBKFT PO Last administered on 01/13/19 08:52; Start 01/10/19 at 11:00 Sertraline HCl (Zoloft) 50 mg DAILY PO Last administered on 01/13/19 08:51; Start 01/10/19 at 13:00 Magnesium Sulfate 50 ml @ 25 mls/hr 1X ONCE IV Last administered on 01/10/19at 13:04; Start 01/10/19 at 12:30; Stop 01/10/19 at 14:29; Status DC Potassium Chloride (Klor-Con) 20 meq DAILYWBKFT PO Last administered on 01/12/19at 08:14; Start 01/11/19 at 08:00; Stop 01/12/19 at 11:05; Status DC Lactulose (Lactulose) 20 gm 1X ONCE PO Last administered on 01/10/19at 17:46; Start 01/10/19 at 17:00; Stop 01/10/19 at 17:01; Status DC Lactulose (Lactulose) 20 gm 1X ONCE PO Last administered on 01/10/19at 16:18; Start 01/10/19 at 16:00; Stop 01/10/19 at 16:03; Status DC Multivitamins/ Minerals (I-Sarah) 1 tab DAILY PO Last administered on 01/13/19at 08:50; Start 01/11/19 at 09:00 Ascorbic Acid (Vitamin C) 500 mg DAILY PO Last administered on 01/13/19at 08:51; Start 01/11/19 at 09:00 Potassium Chloride (Klor-Con) 40 meq 1X ONCE PO Last administered on 01/11/19at 08:17; Start 01/11/19 at 07:00; Stop 01/11/19 at 07:01; Status DC Cephalexin HCl (Keflex) 500 mg TID PO Last administered on 01/13/19at 08:52; Start 01/11/19 at 10:00 Potassium Chloride (Klor-Con) 20 meq 1X ONCE PO Last administered on 01/11/19at 12:09; Start 01/11/19 at 12:30; Stop 01/11/19 at 12:31; Status DC Dicyclomine HCl (Bentyl) 10 mg PRN Q6HRS PRN PO IBS Last administered on 01/12/19at 14:39; Start 01/12/19 at 14:30 Active Scripts Active Prednisone 20 Mg Tablet 30 Mg PO DAILY 4 Days Aspirin Ec (Aspirin) 81 Mg Tablet.dr 81 Mg PO DAILYWBKFT Amox Tr-K Clv 875-125 Mg Tab (Amoxicillin/Potassium Clav) 1 Each Tablet 1 Tab PO BID Reported Senna (Sennosides) 8.6 Mg Tablet 8.6 Mg PO BID Zoloft (Sertraline Hcl) 100 Mg Tablet 100 Mg PO DAILY Amlodipine Besylate 5 Mg Tablet 5 Mg PO DAILY Coreg (Carvedilol) 25 Mg Tablet 25 Mg PO BID Lidocaine 1 Each Adh..patch 1 Each TP DAILY FENTANYL 12mcg/hr (Fentanyl) 1 Each Patch.td72 1 Patch TD Q72H Xanax (Alprazolam) 0.5 Mg Tablet 1 Tab PO BID Lyrica (Pregabalin) 75 Mg Capsule 75 Mg PO BID Omeprazole 20 Mg Capsule.dr 20 Mg PO BID Duoneb 0.5-3(2.5) Mg/3 Ml (Albuterol/Ipratropium) 3 Ml Ampul.neb 3 Ml NEB PRN Q4 HRS PRN Ambien (Zolpidem Tartrate) 5 Mg Tablet 5 Mg PO PRN QHS PRN Hydrocodone-Apap 5-325 (Hydrocodone Bit/Acetaminophen) 1 Tab Tablet 1 Tab PO PRN Q8HRS PRN Vitamin D (Cholecalciferol (Vitamin D3)) 1,000 Unit Capsule 1 Cap PO DAILY Advair 250-50 Diskus (Fluticasone/Salmeterol) 1 Each Disk.w.dev 1 Puff IH BID Multi-Day Vitamins (Multivitamin) 1 Each Tablet 1 Tab PO DAILY Colace (Docusate Sodium) 100 Mg Capsule 100 Mg PO BID Vitals/I & O Vital Sign - Last 24 Hours 01/12/19 01/12/19 01/12/19 01/12/19 11:40 11:59 15:00 16:08 Temp 98.6 98.5 98.6 98.5 Pulse 70 80 Resp 24 24 B/P (MAP) 123/53 (76) 145/75 (98) Pulse Ox 91 97 96 95 O2 Delivery Nasal Cannula Nasal Cannula Nasal Cannula Nasal Cannula O2 Flow Rate 2.0 2.0 2.0 3.0 01/12/19 01/12/19 01/12/19 01/12/19 16:16 17:16 17:57 19:10 Temp 97.1 97.1 Pulse 91 72 Resp 20 18 21 B/P (MAP) 175/70 115/41 (65) Pulse Ox 96 O2 Delivery Nasal Cannula Nasal Cannula Nasal Cannula O2 Flow Rate 2.0 2.0 2.0 01/12/19 01/12/19 01/12/19 01/13/19 19:38 20:01 23:30 03:55 Temp 97.9 97.7 97.9 97.7 Pulse 85 92 Resp 22 21 B/P (MAP) 169/70 (103) 164/66 (98) Pulse Ox 95 96 97 O2 Delivery Nasal Cannula Nasal Cannula Nasal Cannula Nasal Cannula O2 Flow Rate 3.0 2.0 2.0 2.0 01/13/19 01/13/19 01/13/19 01/13/19 07:00 07:14 08:00 08:51 Temp 97.6 97.6 Pulse 92 83 Resp 18 B/P (MAP) 163/63 (96) 163/63 Pulse Ox 98 95 O2 Delivery Nasal Cannula Nasal Cannula Nasal Cannula O2 Flow Rate 2.0 3.0 2.0 01/13/19 01/13/19 08:51 08:52 Pulse 84 O2 Delivery Nasal Cannula O2 Flow Rate 3.0 Intake and Output 01/12/19 01/12/19 01/13/19 15:00 23:00 07:00 Intake Total 250 ml Output Total 325 ml Balance 250 ml -325 ml KARAN KIMBLE MD Jan 13, 2019 10:57
[2019-01-13 11:00] VITALS: BP 132/50
[2019-01-13] MEDS ORDERED: ASCO500T2 PO (11:08)
[2019-01-13] MEDS ORDERED: SERT50TA8 PO (11:08)
[2019-01-13] MEDS ORDERED: PANT40TA77 PO (11:08)
[2019-01-13] MEDS ORDERED: CARV6.2511 PO (11:08)
[2019-01-13] MEDS ORDERED: PREG25CA PO (11:08)
[2019-01-13] MEDS ORDERED: HYDR-2761 PO (11:08)
[2019-01-13] MEDS ORDERED: ENOX40DI3 SQ (11:08)
[2019-01-13] MEDS ORDERED: AMLO10TA8 PO (11:08)
[2019-01-13] MEDS ORDERED: IPRA3AMP29 NEB (11:08)
[2019-01-13] MEDS ORDERED: CEPH250C PO (11:08)
--- NOTE | 2019-01-13 11:11 | SNU/HH DC ---
DISCHARGE ORDERS DISCHARGE INFORMATION: DISCHARGE DATE: Jan 13, 2019 FINAL DIAGNOSIS Problems Medical Problems: (1) Acute and chronic respiratory failure Status: Acute (2) CHF exacerbation Status: Acute (3) Elevated troponin Status: Acute CONDITION ON DISCHARGE: Stable CODE STATUS: Code Status: DNR/DNI [facility]: SNF STAY <30 DAYS: Yes POST DISCHARGE ORDERS: ACTIVITY ORDERS: Activity as tolerated WEIGHT BEARING STATUS: As tolerated DIET AFTER DISCHARGE: ADA WOUND/INCISION CARE: Change dressing CHECKS AFTER DISCHARGE: CHECKS AFTER DISCHARGE: Weigh Yourself Daily FOLLOW-UP: PHYSICIAN FOLLOW-UP: dr. kimble after dismissal from SNF TREATMENT/EQUIPMENT ORDERS: ADAPTIVE EQUIPMENT NEEDED: None, Wheelchair RESPIRATORY EQUIPMENT NEEDED: Oxygen Physical Therapy For: Evalulation/Treatment Occupational Therapy For: Evaluation/Treatment DISCHARGE MEDICATIONS: Home Meds Active Scripts Ascorbic Acid (VITAMIN C) 500 Mg Tablet, 500 MG PO DAILY for vitamin, #30 TAB Prov:KARAN KIMBLE MD 01/13/19 Pantoprazole Sodium (PANTOPRAZOLE SODIUM ) 40 Mg Tablet.dr, 40 MG PO DAILY for gerd, #30 TAB.SR Prov:KARAN KIMBLE MD 01/13/19 Sertraline Hcl (SERTRALINE HCL) 50 Mg Tablet, 50 MG PO DAILY for depression, #30 TAB Prov:KARAN KIMBLE MD 01/13/19 Pregabalin (LYRICA) 25 Mg Capsule, 25 MG PO BID for fibromyalgia , #60 CAP Prov:KARAN KIMBLE MD 01/13/19 Amlodipine Besylate (AMLODIPINE BESYLATE) 10 Mg Tablet, 10 MG PO DAILY for HTN, #30 TAB Prov:KARAN KIMBLE MD 01/13/19 Carvedilol (CARVEDILOL ) 6.25 Mg Tablet, 6.25 MG PO BIDWMEALS for HTN, #60 TAB Prov:KARAN KIMBLE MD 01/13/19 Enoxaparin Sodium (ENOXAPARIN SODIUM) 40 Mg/0.4 Ml Disp.syrin, 40 MG SQ Q24H for dvt prophylaxis, #15 DIS.SYR Prov:KARAN KIMBLE MD 01/13/19 Ipratropium/Albuterol Sulfate (DUONEB 0.5-3(2.5) MG/3 ML) 3 Ml Ampul.neb, 3 ML NEB RTQID for copd, #120 EACH Prov:KARAN KIMBLE MD 01/13/19 Cephalexin (CEPHALEXIN) 250 Mg Capsule, 500 MG PO TID for strep bacteremia for 3 Days, #18 CAP stop on 01/17 Prov:KARAN KIMBLE MD 01/13/19 Hydrocodone Bit/Acetaminophen (HYDROCODONE-APAP 5-325 ) 1 Tab Tablet, 1 TAB PO PRN Q8HRS PRN for PAIN, #30 TAB 0 Refills Prov:KARAN KIMBLE MD 01/13/19 Aspirin (ASPIRIN EC) 81 Mg Tablet.dr, 81 MG PO DAILYWBKFT for CAD, #30 TAB.SR Prov:KARAN KIMBLE MD 06/07/18 Reported Medications Ipratropium/Albuterol Sulfate (DUONEB 0.5-3(2.5) MG/3 ML) 3 Ml Ampul.neb, 3 ML NEB PRN Q4HRS PRN for SHORTNESS OF BREATH, EACH 03/13/18 Cholecalciferol (Vitamin D3) (VITAMIN D) 1,000 Unit Capsule, 1 CAP PO DAILY, #30 CAP 3 Refills 06/24/17 Multivitamin (MULTI-DAY VITAMINS) 1 Each Tablet, 1 TAB PO DAILY, #30 TAB 01/18/16 Discontinued Reported Medications Sennosides (SENNA) 8.6 Mg Tablet, 8.6 MG PO BID for constipation, TAB 06/04/18 Sertraline Hcl (ZOLOFT) 100 Mg Tablet, 100 MG PO DAILY for ANTI-DEPRESSANT, TAB 0 Refills 06/04/18 Amlodipine Besylate (AMLODIPINE BESYLATE) 5 Mg Tablet, 5 MG PO DAILY for BP, TAB 06/04/18 Carvedilol (COREG) 25 Mg Tablet, 25 MG PO BID for CARDIAC, TAB 06/04/18 Lidocaine (Lidocaine PATCH ) 1 Each Adh..patch, 1 EACH TP DAILY for lower back apin, PATCH 06/04/18 Fentanyl (FENTANYL 12mcg/hr) 1 Each Patch.td72, 1 PATCH TD Q72H for pain, PATCH 06/04/18 Alprazolam (XANAX) 0.5 Mg Tablet, 1 TAB PO BID for anxiety, #60 TAB 06/04/18 Pregabalin (LYRICA) 75 Mg Capsule, 75 MG PO BID for psych, CAP 06/04/18 Omeprazole (OMEPRAZOLE) 20 Mg Capsule.dr, 20 MG PO BID for gerd, CAP 06/04/18 Zolpidem Tartrate (AMBIEN) 5 Mg Tablet, 5 MG PO PRN QHS PRN for INSOMNIA, TAB 0 Refills 03/13/18 Fluticasone/Salmeterol (ADVAIR 250-50 DISKUS) 1 Each Disk.w.dev, 1 PUFF IH BID, #3 INHALER 3 Refills 06/24/17 Docusate Sodium (COLACE) 100 Mg Capsule, 100 MG PO BID 04/11/13 Discontinued Scripts Prednisone (PREDNISONE) 20 Mg Tablet, 30 MG PO DAILY for copd exacerbation for 4 Days, #6 TAB Prov:KARAN KIMBLE MD 06/07/18 Amoxicillin/Potassium Clav (AMOX TR-K CLV 875-125 MG TAB) 1 Each Tablet, 1 TAB PO BID for URI, #6 TAB Prov:KARAN KIMBLE MD 06/07/18 KARAN KIMBLE MD Jan 13, 2019 11:11
[2019-01-13] MEDS ORDERED: HYDR200T5 PO (11:15)
--- NOTE | 2019-01-13 11:21 | PDOC ---
Provider Note Provider Note discharge summary dictated # [id number] KARAN KIMBLE MD Jan 13, 2019 11:21
--- NOTE | 2019-01-13 12:02 | DS ---
DATE OF DISCHARGE: 01/14/2019 CONSULTANTS: Dr. Kurtis Lubin, Dr. Cruz. FINAL DIAGNOSES: 1. Non-ST segment elevated myocardial infarction. 2. Acute on chronic diastolic congestive heart failure. 3. Acute on chronic hypoxic respiratory failure. 4. Diabetes mellitus type 2 with peripheral neuropathy. 5. Hypertension. 6. Hyperlipidemia with statin intolerance. 7. Acute kidney injury. 8. Fibromyalgia. 9. Chronic pain. 10. Anemia of chronic disease. 11. Thrombocytopenia, which resolved. 12. Chronic obstructive pulmonary disease. 13. Severe protein-calorie malnutrition. 14. Metabolic encephalopathy. 15. Polyarthritis. 16. Lower abdominal pain, which resolved with a negative CAT scan. 17. She did have a group B Streptococcus bacteremia with sepsis. HOSPITAL COURSE: The patient is an 88-year-old white female with history of diabetes mellitus type 2 with peripheral neuropathy, hypertension, hyperlipidemia, COPD, chronic hypoxic respiratory failure and chronic diastolic congestive heart failure and noted the onset of shortness of breath, which progressed. She uses oxygen 2 liters nasal cannula at home but increased it to 4 liters and denied any cough or wheezing. She did have some loose stools. Denied any dysuria. [facility]. Troponin levels noted to be elevated at 2.2. ProBNP was increased to 6335, BUN 25, creatinine 1.4. An echocardiogram showed a preserved left ventricular ejection fraction. She was thought to have [id number] diastolic congestive heart failure. She had moderate mitral stenosis and moderate pulmonary hypertension on her echocardiogram. She did receive some IV Lasix and she was seen by Dr. Cruz for Cardiology and Dr. Kurtis Lubin for Infectious Disease. She is a do not resuscitate. The patient's congestive heart failure was compensated. She developed a metabolic encephalopathy and her fentanyl patch was discontinued. Her hydrocodone was continued at b.i.d. p.r.n. at 5/325 mg and her Lyrica was decreased from 75 mg b.i.d. to 25 mg b.i.d. Her mental status improved. Her carvedilol was adjusted and she also was treated with amlodipine for hypertension. She received nebulizer treatments and she has continued to improve. Her mental status also improved. She was eating and drinking much better. Gray catheter was discontinued. She is quite weak and she will be dismissed to a prison facility on 01/14/2019 and will be dismissed on albuterol nebulized treatments q.i.d. and every 4 hours p.r.n. amlodipine 10 mg every day, vitamin C 500 mg every day, aspirin 81 mg every day, carvedilol 6.25 mg b.i.d. and she will be on Keflex 500 mg t.i.d. for a few more days and that will be discontinued, I believe on 01/17/2019; she was on IV antibiotics prior to that; vitamin D at 1000 units every day; Bentyl 10 mg every 6 hours p.r.n.; Lovenox 40 mg subcutaneous daily while she is at the prison facility; Plaquenil 200 mg b.i.d.; [place] 5/325 one b.i.d. p.r.n., 30 tablets, no refill and she will also be dismissed on DuoNeb nebulizer treatments and multiple vitamin once a day and sertraline 50 mg every day, Lyrica 25 mg b.i.d., Protonix 40 mg every day. She received physical and occupational therapy at prison facility. KARAN KIMBLE MD DR: KATHY/ben JOB#: [id number] / [id number]
[2019-01-13] MEDS: ENOXAPARIN 40 MG/0.4 ML SYRINGE. SQ SCH (12:29)
[2019-01-13] MEDS: PANTOPRAZOLE 40 MG TABLET.DR. PO SCH (12:29)
[2019-01-13 13:17] LABS: % BANDS 1 % (0-9); % BASOS 2 % (0-3); % EOS 2 % (0-5); % LYMPHS 13 % (24-48); % MONOS 4 % (0-10); % MYELOS 1 % (0-0); % SEGS 77 % (35-66); PLT ESTIMATE ADEQUATE (ADEQUATE)
[2019-01-13 15:00] VITALS: BP 126/54
[2019-01-13 19:12] VITALS: BP 153/66
[2019-01-13 22:58] VITALS: BP 157/59
[2019-01-14 03:01] VITALS: BP 134/53
[2019-01-14 07:00] VITALS: BP 129/55
[2019-01-14] MEDS: IPRATRPIUM/ALBUTEROL 0.5/2.5MG 3 ML NEBU. NEB SCH ×2 (08:00→11:52)
[2019-01-14] MEDS: SERTRALINE 50 MG TABLET. PO SCH (08:34)
[2019-01-14] MEDS: HYDROXYCHLOROQUINE 200 MG TABLET PO SCH (08:34)
[2019-01-14] MEDS: CEPHALEXIN 250 MG CAPSULE. PO SCH (08:35)
[2019-01-14] MEDS: MULTIVITAMIN I-VITE TABLET. PO SCH (08:35)
[2019-01-14] MEDS: PREGABALIN 25 MG CAPSULE PO SCH (08:35)
[2019-01-14] MEDS: CARVEDILOL 6.25 MG TABLET. PO SCH (08:35)
[2019-01-14] MEDS: PANTOPRAZOLE 40 MG TABLET.DR. PO SCH (08:35)
[2019-01-14] MEDS: CHOLECALCIFEROL (VITAMIN D3) 1,000 UNIT TABLET PO SCH (08:35)
[2019-01-14] MEDS: ASPIRIN ENTERIC COATED 81 MG TABLET.DR. PO SCH (08:35)
[2019-01-14] MEDS: ASCORBIC ACID 500 MG TABLET PO SCH (08:35)
[2019-01-14] MEDS: amLODIPine BESYLATE 10 MG TABLET PO SCH (08:35)
--- NOTE | 2019-01-14 09:44 | PDOC ---
PROGRESS NOTES Subjective Subjective feels better. alert discussed with family. Objective Objective Vital Signs Date Time Temp Pulse Resp B/P (MAP) Pulse Ox O2 Delivery O2 Flow Rate FiO2 01/14/19 08:35 81 129/55 01/14/19 08:21 94 Nasal Cannula 3.0 01/14/19 07:00 98.6 18 98.6 Intake and Output 01/14/19 07:00 Intake Total 300 ml Output Total 200 ml Balance 100 ml Intake Oral 300 ml Output Urine Total 200 ml # Voids 6 Physical Exam Abdomen: Soft Heart: Regular rate, Normal S1, Normal S2 Extremities: No edema General: Alert HEENT: Atraumatic Lungs: Clear to auscultation Neuro: Normal speech Psych/Mental Status: Mood NL Skin: No rashes Assessment Assessment ProblemsNon-ST segment elevated myocardial infarction. 2. Acute on chronic diastolic congestive heart failure. compensated 3. Group B streptococcus bacteremia now on keflex 4. 5. Hyperlipidemia with statin intolerance. 6. Acute kidney injury. due to dehydration resolved 7. Acute on chronic hypoxic respiratory failure. 8. Fibromyalgia. 9. Chronic pain. 10. Fever. resolved 11. Diarrhea. resolved 12. Anemia of chronic disease with some progression in the anemia. 13. Thrombocytopenia. resolved 14. Chronic obstructive pulmonary disease. 15. Severe protein-calorie malnutrition. 16. Metabolic encephalopathy.improved diabetes mellitus type 2 with peripheral neuropathy hypertension. moderate mitral stenosis per echo lower abdominal pain resolved Medical Problems: (1) Acute and chronic respiratory failure Status: Acute (2) CHF exacerbation Status: Acute (3) Elevated troponin Status: Acute Plan Plan of Care dismiss to snf today Comment Review of Relevant I have reviewed the following items lizbeth (where applicable) has been applied. Labs Laboratory Tests Test 01/13/19 06:10 White Blood Count 11.8 x10^3/uL (4.0-11.0) Red Blood Count 4.42 x10^6/uL (3.50-5.40) Hemoglobin 10.4 g/dL (12.0-15.5) Hematocrit 34.1 % (36.0-47.0) Mean Corpuscular Volume 77 fL (79-100) Mean Corpuscular Hemoglobin 24 pg (25-35) Mean Corpuscular Hemoglobin Concent 31 g/dL (31-37) Red Cell Distribution Width 16.5 % (11.5-14.5) Platelet Count 300 x10^3/uL (140-400) Neutrophils (%) (Auto) 84 % (31-73) Lymphocytes (%) (Auto) 8 % (24-48) Monocytes (%) (Auto) 6 % (0-9) Eosinophils (%) (Auto) 1 % (0-3) Basophils (%) (Auto) 0 % (0-3) Neutrophils # (Auto) 9.9 x10^3/uL (1.8-7.7) Lymphocytes # (Auto) 1.0 x10^3/uL (1.0-4.8) Monocytes # (Auto) 0.7 x10^3/uL (0.0-1.1) Eosinophils # (Auto) 0.2 x10^3/uL (0.0-0.7) Basophils # (Auto) 0.0 x10^3/uL (0.0-0.2) Segmented Neutrophils % 77 % (35-66) Band Neutrophils % 1 % (0-9) Lymphocytes % 13 % (24-48) Monocytes % 4 % (0-10) Eosinophils % 2 % (0-5) Basophils % 2 % (0-3) Myelocytes % 1 % (0-0) Platelet Estimate Adequate (ADEQUATE) Sodium Level 133 mmol/L (136-145) Potassium Level 4.0 mmol/L (3.5-5.1) Chloride Level 95 mmol/L (98-107) Carbon Dioxide Level 32 mmol/L (21-32) Anion Gap 6 (6-14) Blood Urea Nitrogen 16 mg/dL (7-20) Creatinine 0.6 mg/dL (0.6-1.0) Estimated GFR (Cockcroft-Gault) 94.6 BUN/Creatinine Ratio 27 (6-20) Glucose Level 115 mg/dL (70-99) Calcium Level 9.3 mg/dL (8.5-10.1) Total Bilirubin 0.4 mg/dL (0.2-1.0) Aspartate Amino Transf (AST/SGOT) 27 U/L (15-37) Alanine Aminotransferase (ALT/SGPT) 11 U/L (14-59) Alkaline Phosphatase 76 U/L (46-116) Total Protein 8.0 g/dL (6.4-8.2) Albumin 2.7 g/dL (3.4-5.0) Albumin/Globulin Ratio 0.5 (1.0-1.7) Microbiology 01/04/19 Blood Culture - Final, Complete NO GROWTH AFTER 5 DAYS 01/04/19 Urine Culture - Final, Complete 01/04/19 Urine Culture Result 1 (NIKOLAS) - Final, Complete Medications Current Medications Albuterol/ Ipratropium (Duoneb) 3 ml 1X ONCE NEB Last administered on 01/04/19at 10:45; Start 01/04/19 at 10:45; Stop 01/04/19 at 10:46; Status DC Furosemide (Lasix) 40 mg 1X ONCE IVP Last administered on 01/04/19at 11:07; Start 01/04/19 at 10:45; Stop 01/04/19 at 10:46; Status DC Heparin Sodium/ Dextrose 500 ml @ 16.3 mls/hr CONT PRN IV protocol Last administered on 01/04/19at 13:30; Start 01/04/19 at 11:45; Stop 01/05/19 at 11:04; Status DC Heparin Sodium (Porcine) (Heparin Sodium) 1,700 unit PRN Q6HRS PRN IV FOR UFH LEVEL LESS THAN 0.2; Start 01/04/19 at 11:45; Stop 01/05/19 at 11:04; Status DC Ondansetron HCl (Zofran) 4 mg PRN Q8HRS PRN IV NAUSEA/VOMITING; Start 01/04/19 at 11:45; Stop 01/05/19 at 11:44; Status DC Acetaminophen (Tylenol) 650 mg PRN Q4HRS PRN PO FEVER; Start 01/04/19 at 11:45; Stop 01/05/19 at 11:44; Status DC Nitroglycerin (Nitrostat) 0.4 mg PRN Q5MIN PRN SL CHEST PAIN; Start 01/04/19 at 11:45; Stop 01/04/19 at 18:59; Status DC Albuterol/ Ipratropium (Duoneb) 3 ml RTQID NEB Last administered on 01/05/19at 11:43; Start 01/04/19 at 12:00; Stop 01/05/19 at 11:59; Status DC Heparin Sodium (Porcine) (Heparin Sodium) 4,000 unit 1X ONCE IV Last administered on 01/04/19at 13:28; Start 01/04/19 at 13:30; Stop 01/04/19 at 13:31; Status DC Carvedilol (Coreg) 6.25 mg BIDWMEALS PO Last administered on 01/08/19at 17:33; Start 01/04/19 at 17:00; Stop 01/09/19 at 10:29; Status DC Aspirin (Ede Aspirin) 325 mg 1X ONCE PO Last administered on 01/04/19at 15:17; Start 01/04/19 at 13:15; Stop 01/04/19 at 13:47; Status DC Aspirin (Children'S Aspirin) 81 mg DAILYWBKFT PO Last administered on 01/10/19at 08:40; Start 01/05/19 at 08:00; Stop 01/10/19 at 13:38; Status DC Alprazolam (Xanax) 0.5 mg BID PO Last administered on 01/06/19at 07:56; Start 01/04/19 at 21:00; Stop 01/06/19 at 10:19; Status DC Fentanyl (Duragesic 12mcg/ Hr Patch) 1 patch Q3DAYS TD ; Start 01/05/19 at 09:00; Stop 01/04/19 at 18:59; Status DC Pregabalin (Lyrica) 75 mg BID PO Last administered on 01/06/19 07:57; Start 01/04/19 at 21:00; Stop 01/06/19 at 10:19; Status DC Acetaminophen/ Hydrocodone Bitart (Lortab 5/325) 1 tab PRN BID PRN PO PAIN Last administered on 01/13/19at 08:52; Start 01/04/19 at 13:15 Pantoprazole Sodium (Protonix) 40 mg DAILY PO Last administered on 01/14/19 08:35; Start 01/05/19 at 09:00 Hydroxychloroquine Sulfate (Plaquenil) 200 mg BID PO Last administered on 01/14/19 08:34; Start 01/04/19 at 21:00 Sertraline HCl (Zoloft) 100 mg DAILY PO Last administered on 01/06/19at 07:57; Start 01/05/19 at 09:00; Stop 01/06/19 at 10:19; Status DC Zolpidem Tartrate (Ambien) 5 mg PRN QHS PRN PO INSOMNIA; Start 01/04/19 at 13:15; Stop 01/07/19 at 10:27; Status DC Ondansetron HCl (Zofran Odt) 4 mg PRN Q6HRS PRN PO NAUSEA Last administered on 01/11/19 08:18; Start 01/04/19 at 13:15 Vitamin D (Vitamin D3) 1,000 unit DAILY PO Last administered on 01/14/19at 08:35; Start 01/05/19 at 09:00 Albuterol Sulfate (Ventolin Neb Soln) 2.5 mg PRN Q4HRS PRN NEB WHEEZING Last administered on 01/09/19 03:49; Start 01/04/19 at 13:15; Stop 01/09/19 at 10:39; Status DC Fentanyl (Duragesic 12mcg/ Hr Patch) 1 patch Q3DAYS TD Last administered on 01/07/19 09:06; Start 01/04/19 at 19:00; Stop 01/08/19 at 10:07; Status DC Nitroglycerin (Nitrostat) 0.4 mg PRN Q5MIN PRN SL CHEST PAIN; Start 01/04/19 at 19:00; Stop 01/05/19 at 18:59; Status DC Cefepime HCl (Maxipime) 1 gm Q12HR IVP ; Start 01/04/19 at 21:00; Stop 01/04/19 at 20:40; Status DC Vancomycin HCl (Vanco Per Pharmacy) 1 each 1X PRN PRN MC SEE COMMENTS Last administered on 01/04/19at 21:25; Start 01/04/19 at 19:45; Stop 01/05/19 at 07:50; Status DC Vancomycin HCl 1.75 gm/Sodium Chloride 500 ml @ 250 mls/hr 1X ONCE IV ; Start 01/04/19 at 20:45; Stop 01/04/19 at 22:44; Status Cancel Cefepime HCl (Maxipime) 1 gm QHS IVP Last administered on 01/04/19at 23:17; Start 01/04/19 at 21:00; Stop 01/05/19 at 09:49; Status DC Vancomycin HCl 1.5 gm/Sodium Chloride 500 ml @ 250 mls/hr 1X ONCE IV Last administered on 01/04/19at 21:19; Start 01/04/19 at 21:00; Stop 01/04/19 at 22:59; Status DC Info (Anti-Coagulation Monitoring By Pharmacy) 1 each PRN DAILY PRN MC SEE COMMENTS Last administered on 01/05/19at 10:49; Start 01/04/19 at 21:30; Stop 01/08/19 at 10:59; Status DC Vancomycin HCl 1 gm/Sodium Chloride 250 ml @ 250 mls/hr Q48H IV ; Start 01/06/19 at 21:00; Stop 01/05/19 at 10:30; Status DC Vancomycin HCl (Vanco Per Pharmacy) 1 each PRN DAILY PRN MC SEE COMMENTS Last administered on 01/06/19at 23:25; Start 01/05/19 at 07:45; Stop 01/08/19 at 10:59; Status DC Cefepime HCl (Maxipime) 1 gm BID IVP Last administered on 01/07/19at 22:21; Start 01/05/19 at 10:00; Stop 01/08/19 at 07:11; Status DC Vancomycin HCl 1 gm/Sodium Chloride 250 ml @ 250 mls/hr QHS IV Last administered on 01/05/19at 21:15; Start 01/05/19 at 21:00; Stop 01/06/19 at 22:44; Status DC Vancomycin HCl (Vancomycin Trough Level) 1 each 1X ONCE MC Last administered on 01/06/19at 20:30; Start 01/06/19 at 20:30; Stop 01/06/19 at 20:31; Status DC Enoxaparin Sodium (Lovenox 40mg Syringe) 40 mg Q24H SQ Last administered on 01/13/19at 12:29; Start 01/05/19 at 12:00 Magnesium Sulfate 50 ml @ 25 mls/hr 1X ONCE IV Last administered on 01/05/19at 12:32; Start 01/05/19 at 11:15; Stop 01/05/19 at 13:14; Status DC Alprazolam (Xanax) 0.25 mg PRN BID PRN PO ANXIETY / AGITATION; Start 01/06/19 at 10:30; Stop 01/07/19 at 10:27; Status DC Pregabalin (Lyrica) 50 mg BID PO ; Start 01/06/19 at 11:00; Stop 01/06/19 at 11:04; Status DC Mirtazapine (Remeron) 15 mg QHS PO Last administered on 01/06/19at 21:21; Start 01/06/19 at 21:00; Stop 01/07/19 at 10:27; Status DC Pregabalin (Lyrica) 50 mg BID PO Last administered on 01/08/19at 08:12; Start 01/06/19 at 21:00; Stop 01/08/19 at 10:01; Status DC Vancomycin HCl 1.25 gm/Sodium Chloride 250 ml @ 167 mls/hr Q24H IV Last administered on 01/07/19at 22:21; Start 01/06/19 at 23:00; Stop 01/08/19 at 07:11; Status DC Vancomycin HCl (Vancomycin Trough Level) 1 each 1X ONCE MC ; Start 01/08/19 at 22:30; Stop 01/08/19 at 11:06; Status DC Mirtazapine (Remeron) 7.5 mg QHS PO Last administered on 01/09/19at 20:48; Start 01/07/19 at 21:00; Stop 01/10/19 at 11:55; Status DC Lactobacillus Rhamnosus (Culturelle) 1 cap BID PO Last administered on 01/08/19at 08:13; Start 01/07/19 at 21:00; Stop 01/08/19 at 11:05; Status DC Amlodipine Besylate (Norvasc) 5 mg DAILY PO Last administered on 01/08/19at 08:13; Start 01/07/19 at 18:00; Stop 01/09/19 at 11:00; Status DC Ceftriaxone Sodium (Rocephin) 2 gm Q24H IVP Last administered on 01/11/19at 08:16; Start 01/08/19 at 07:30; Stop 01/11/19 at 09:20; Status DC Pregabalin (Lyrica) 25 mg BID PO Last administered on 01/14/19at 08:35; Start 01/08/19 at 21:00 Carvedilol (Coreg) 12.5 mg BIDWMEALS PO ; Start 01/09/19 at 10:30; Stop 01/09/19 at 11:00; Status DC Albuterol/ Ipratropium (Duoneb) 3 ml RTQID NEB Last administered on 01/14/19at 08:00; Start 01/09/19 at 12:00 Albuterol Sulfate (Ventolin Neb Soln) 2.5 mg PRN Q4HRS PRN NEB SHORTNESS OF BREATH; Start 01/09/19 at 10:45 Amlodipine Besylate (Norvasc) 10 mg DAILY PO Last administered on 01/14/19at 08:35; Start 01/10/19 at 09:00 Carvedilol (Coreg) 6.25 mg BIDWMEALS PO Last administered on 01/14/19 08:35; Start 01/09/19 at 17:00 Amlodipine Besylate (Norvasc) 5 mg 1X ONCE PO Last administered on 01/09/19at 11:00; Start 01/09/19 at 11:00; Stop 01/09/19 at 11:04; Status DC Furosemide (Lasix) 40 mg 1X ONCE IVP Last administered on 01/09/19at 13:49; Start 01/09/19 at 11:45; Stop 01/09/19 at 11:46; Status DC Potassium Chloride (Klor-Con) 20 meq 1X ONCE PO Last administered on 01/09/19at 13:50; Start 01/09/19 at 11:45; Stop 01/09/19 at 11:46; Status DC Furosemide (Lasix) 40 mg 1X ONCE IVP ; Start 01/10/19 at 09:15; Stop 01/10/19 at 09:17; Status DC Furosemide (Lasix) 20 mg 1X ONCE IVP Last administered on 01/10/19at 13:05; Start 01/10/19 at 10:45; Stop 01/11/19 at 06:22; Status DC Potassium Chloride (Klor-Con) 20 meq 1X ONCE PO Last administered on 01/10/19at 13:04; Start 01/10/19 at 10:45; Stop 01/10/19 at 10:46; Status DC Furosemide (Lasix) 20 mg DAILY PO ; Start 01/11/19 at 09:00; Stop 01/11/19 at 06:22; Status DC Aspirin (Ecotrin) 81 mg DAILYWBKFT PO Last administered on 01/14/19at 08:35; Start 01/10/19 at 11:00 Sertraline HCl (Zoloft) 50 mg DAILY PO Last administered on 01/14/19 08:34; Start 01/10/19 at 13:00 Magnesium Sulfate 50 ml @ 25 mls/hr 1X ONCE IV Last administered on 01/10/19at 13:04; Start 01/10/19 at 12:30; Stop 01/10/19 at 14:29; Status DC Potassium Chloride (Klor-Con) 20 meq DAILYWBKFT PO Last administered on 01/12/19 08:14; Start 01/11/19 at 08:00; Stop 01/12/19 at 11:05; Status DC Lactulose (Lactulose) 20 gm 1X ONCE PO Last administered on 01/10/19 17:46; Start 01/10/19 at 17:00; Stop 01/10/19 at 17:01; Status DC Lactulose (Lactulose) 20 gm 1X ONCE PO Last administered on 01/10/19at 16:18; Start 01/10/19 at 16:00; Stop 01/10/19 at 16:03; Status DC Multivitamins/ Minerals (I-Sarah) 1 tab DAILY PO Last administered on 01/14/19 08:35; Start 01/11/19 at 09:00 Ascorbic Acid (Vitamin C) 500 mg DAILY PO Last administered on 01/14/19 08:35; Start 01/11/19 at 09:00 Potassium Chloride (Klor-Con) 40 meq 1X ONCE PO Last administered on 01/11/19 08:17; Start 01/11/19 at 07:00; Stop 01/11/19 at 07:01; Status DC Cephalexin HCl (Keflex) 500 mg TID PO Last administered on 01/14/19 08:35; Start 01/11/19 at 10:00 Potassium Chloride (Klor-Con) 20 meq 1X ONCE PO Last administered on 01/11/19at 12:09; Start 01/11/19 at 12:30; Stop 01/11/19 at 12:31; Status DC Dicyclomine HCl (Bentyl) 10 mg PRN Q6HRS PRN PO IBS Last administered on 01/12/19at 14:39; Start 01/12/19 at 14:30 Active Scripts Active Hydroxychloroquine Sulfate 200 Mg Tablet 200 Mg PO BID Vitamin C (Ascorbic Acid) 500 Mg Tablet 500 Mg PO DAILY Pantoprazole Sodium (Pantoprazole Sodium) 40 Mg Tablet. 40 Mg PO DAILY Sertraline Hcl 50 Mg Tablet 50 Mg PO DAILY Lyrica (Pregabalin) 25 Mg Capsule 25 Mg PO BID Amlodipine Besylate 10 Mg Tablet 10 Mg PO DAILY Carvedilol (Carvedilol) 6.25 Mg Tablet 6.25 Mg PO BIDWMEALS Enoxaparin Sodium 40 Mg/0.4 Ml Disp.syrin 40 Mg SQ Q24H Duoneb 0.5-3(2.5) Mg/3 Ml (Albuterol/Ipratropium) 3 Ml Ampul.neb 3 Ml NEB RTQID Cephalexin 250 Mg Capsule 500 Mg PO TID 3 Days stop on 01/17 Hydrocodone-Apap 5-325 (Hydrocodone Bit/Acetaminophen) 1 Tab Tablet 1 Tab PO PRN Q8HRS PRN Aspirin Ec (Aspirin) 81 Mg Tablet. 81 Mg PO DAILYWBKFT Reported Duoneb 0.5-3(2.5) Mg/3 Ml (Albuterol/Ipratropium) 3 Ml Ampul.neb 3 Ml NEB PRN Q4HRS PRN Vitamin D (Cholecalciferol (Vitamin D3)) 1,000 Unit Capsule 1 Cap PO DAILY Multi-Day Vitamins (Multivitamin) 1 Each Tablet 1 Tab PO DAILY Vitals/I & O Vital Sign - Last 24 Hours 01/13/19 01/13/19 01/13/19 01/13/19 09:52 11:00 15:00 16:37 Temp 98.5 98.3 98.5 98.3 Pulse 64 76 Resp 18 18 B/P (MAP) 132/50 (77) 126/54 (78) Pulse Ox 97 99 95 O2 Delivery Nasal Cannula Nasal Cannula Nasal Cannula Nasal Cannula O2 Flow Rate 3.0 2.0 2.0 3.0 01/13/19 01/13/19 01/13/19 01/13/19 19:12 19:13 19:42 22:58 Temp 98.3 98.4 98.3 98.4 Pulse 77 86 Resp 20 18 B/P (MAP) 153/66 (95) 157/59 (91) Pulse Ox 98 95 97 O2 Delivery Nasal Cannula Nasal Cannula Nasal Cannula Nasal Cannula O2 Flow Rate 2.0 2.0 3.0 2.0 01/14/19 01/14/19 01/14/19 01/14/19 03:01 07:00 08:21 08:35 Temp 98.2 98.6 98.2 98.6 Pulse 79 81 81 Resp 18 18 B/P (MAP) 134/53 (80) 129/55 (79) 129/55 Pulse Ox 96 97 94 O2 Delivery Nasal Cannula Nasal Cannula Nasal Cannula O2 Flow Rate 2.0 2.0 3.0 01/14/19 08:35 Pulse 81 B/P (MAP) 129/55 Intake and Output 01/13/19 01/13/19 01/14/19 15:00 23:00 07:00 Intake Total 0 ml 300 ml Output Total 200 ml Balance -200 ml 300 ml KARAN KIMBLE MD Jan 14, 2019 09:44
--- NOTE | 2019-01-14 10:17 | NUR ---
SS following up with discharge planning. Discharge order on the chart. SS phoned and faxed discharge orders and script to [facility], ; fax [phone]. Pt will discharge today and go to [facility] at 1300 via stretcher. Transportation arranged by [facility]. Pt, pt's family, and pt's RN notified.
[2019-01-14 11:00] VITALS: BP 119/48
== END 2019-01-14 12:45 | DRG 871 ==
LOC: ER 10:16 → 2 NORTH 11:44
PROVIDERS: ADMIT Internal Medicine; ATTEND Internal Medicine
DX: A40.1 Sepsis due to streptococcus, group B (principal); I21.A1 Myocardial infarction type 2; I50.33 Acute on chronic diastolic (congestive) heart failure; E43 Unspecified severe protein-calorie malnutrition; G93.41 Metabolic encephalopathy; J96.21 Acute and chronic respiratory failure with hypoxia; E87.3 Alkalosis; I13.0 Hypertensive heart and chronic kidney disease with heart failure and stage 1 through stage 4 chronic kidney disease, or unspecified chronic kidney disease; J44.1 Chronic obstructive pulmonary disease with (acute) exacerbation; N17.9 Acute kidney failure, unspecified; N39.0 Urinary tract infection, site not specified; D63.8 Anemia in other chronic diseases classified elsewhere; D69.6 Thrombocytopenia, unspecified; E11.22 Type 2 diabetes mellitus with diabetic chronic kidney disease; E11.42 Type 2 diabetes mellitus with diabetic polyneuropathy; E78.5 Hyperlipidemia, unspecified; E86.0 Dehydration; E87.6 Hypokalemia; F32.9 Major depressive disorder, single episode, unspecified; G89.29 Other chronic pain; I25.10 Atherosclerotic heart disease of native coronary artery without angina pectoris; I25.2 Old myocardial infarction; K59.00 Constipation, unspecified; M79.7 Fibromyalgia; N18.3 Chronic kidney disease, stage 3 (moderate); Z66 Do not resuscitate; Z74.01 Bed confinement status; Z79.82 Long term (current) use of aspirin; Z79.899 Other long term (current) drug therapy; Z80.8 Family history of malignant neoplasm of other organs or systems; Z82.49 Family history of ischemic heart disease and other diseases of the circulatory system; Z86.14 Personal history of Methicillin resistant Staphylococcus aureus infection; Z87.440 Personal history of urinary (tract) infections; Z87.891 Personal history of nicotine dependence; Z90.49 Acquired absence of other specified parts of digestive tract; Z90.710 Acquired absence of both cervix and uterus; Z99.3 Dependence on wheelchair; Z99.81 Dependence on supplemental oxygen; E66.9 Obesity, unspecified; G47.33 Obstructive sleep apnea (adult) (pediatric); M19.90 Unspecified osteoarthritis, unspecified site
CPT/HCPCS: 36415; 70450; 71045; 74176; 80048; 80053; 80061; 80202; 81001; 82962; 83605; 83735; 83880; 84132; 84145; 84484; 85007; 85025; 85520; 87040; 87077; 87086; 87205; 87641; 87804; 93005; 93306; 94640; 94760; 96365; 96375; 96376; J0692; J0696; J1644; J1650; J1940; J3370; J3475; J7040; J7050; J7613; J7620; Q0162; 97110; 99291-25; G0378; J7030

== ENCOUNTER 2019-07-12 10:11 | Inpatient (IN) | payer MEDICARE ==
[~2019-07-12] VITALS: Ht 152.4 cm; Wt 74.9 kg
[~2019-07-12 10:11] MED LIST changes: +AMLO10TA8 PO; +ASCO500T4 PO; +CARV6.2511 PO; +CEPH250C PO; +ENOX40DI3 SQ; +MELA3TAB4 PO; -MELA3TAB56 PO; -OMEP-229 PO; +OMEP20CA16 PO; +PANT40TA77 PO; +PREG-9 PO; +PREG25CA41 PO; -PREG50CA PO; +PREG50CA91 PO; -PREG75CA PO; +SENN-182 PO; -SENN-80 PO; +SERT50TA8 PO
[2019-07-12 11:42] LABS: BASO % 0 % (0-3); EOS # 0.2 x10^3/uL (0.0-0.7); EOS % 3 % (0-3); HEMATOCRIT 29.1 % (36.0-47.0); HEMOGLOBIN 8.9 g/dL (12.0-15.5); LYMPH # 0.8 x10^3/uL (1.0-4.8); LYMPH % 12 % (24-48); MEAN CORPUSCULAR HEMOGLOBIN 23 pg (25-35); MEAN CORPUSCULAR HGB CONC 31 g/dL (31-37); MEAN CORPUSCULAR VOLUME 75 fL (79-100); MONO # 0.3 x10^3/uL (0.0-1.1); MONO % 5 % (0-9); NEUT # 5.2 x10^3/uL (1.8-7.7); NEUT % 80 % (31-73); PLATELET COUNT 169 x10^3/uL (140-400); RED BLOOD COUNT 3.89 x10^6/uL (3.50-5.40); RED CELL DISTRIBUTION WIDTH 17.1 % (11.5-14.5); WHITE BLOOD COUNT 6.4 x10^3/uL (4.0-11.0)
[2019-07-12 11:52] LABS: CALCIUM 8.4 mg/dL (8.5-10.1); CREATININE 0.8 mg/dL (0.6-1.0); GFR 67.8; POTASSIUM 4.3 mmol/L (3.5-5.1)
[2019-07-12 11:56] LABS: PROTHROMBIN TIME PATIENT 13.2 SEC (11.7-14.0)
[2019-07-12 11:58] LABS: ALBUMIN 3.1 g/dL (3.4-5.0); ALBUMIN/GLOBULIN RATIO 0.8 (1.0-1.7); MAGNESIUM 1.8 mg/dL (1.8-2.4); TOTAL BILIRUBIN 0.2 mg/dL (0.2-1.0); TOTAL PROTEIN 6.8 g/dL (6.4-8.2)
--- NOTE | 2019-07-12 12:02 | RAD ---
PORTABLE CHEST 1V Clinical indications: Shortness of air COMPARISON: January 22, 2019. Findings: Bilateral interstitial and nodular lung infiltrates are seen which may represent pulmonary edema. Small bilateral pleural effusions are seen right greater than left. There is elevation of the right hemidiaphragm. This may be due to subpulmonic effusion. No pneumothorax is seen. Heart size is stable. 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 The mediastinum is stable. Old healed left rib cage fractures are seen. IMPRESSION: Moderate CHF. Electronically signed by: Kin Corral MD (07/12/2019 11:59 AM) [id number]
[2019-07-12 12:21] LABS: BILIRUBIN,URINE NEGATIVE (NEG); CLARITY,URINE CLEAR; COLOR,URINE YELLOW; NITRITE,URINE NEGATIVE (NEG); PROTEIN,URINE NEGATIVE (NEG-TRACE); UROBILINOGEN,URINE 0.2 mg/dL (0.2 mg/dL)
[2019-07-12 12:36] LABS: BACTERIA,URINE MODERATE /HPF (0-FEW); RBC,URINE 0 /HPF (0-2)
--- NOTE | 2019-07-12 12:45 | EKG ---
[facility] [address] [place] [id number] Test Date: 2019-07-12 Test Time: 11:37:44 Pat Name: SYBIL AUGUSTINE Department: Room: Gender: F [employer] Operator: : [id number] Requested By: DELMIS LAL Order Number: [id number] Reading MD: Iftikhar Cruz MD Measurements Intervals [place] Rate: 74 P: -40 [place]: 178 QRS: -28 QRSD: 140 T: 118 QT: 418 QTc: 464 Interpretive Statements SINUS RHYTHM LBBB CONSIDER SEPTAL INFARCT - OLD Electronically Signed On 07-18-2019 11:06:12 CDT by Iftikhar Cruz MD
[2019-07-12] MEDS ORDERED: FUROSEMIDE 40 MG/4 ML VIAL. IVP ONE (13:00)
[2019-07-12] MEDS ORDERED: ONDANSETRON PF 4 MG/2 ML VIAL. IV PRN (13:45)
--- NOTE | 2019-07-12 13:46 | PHYS DOC ---
Past Medical History Past Medical History: Arthritis, CAD, CHF, Constipation, COPD, Depression, Diabetes-Type II, Fibromyalgia, GERD, Hypertension, Pneumonia, UTI, Other Additional Past Medical Histor: NEUROPATHY Past Surgical History: Appendectomy, Cholecystectomy, Hysterectomy, Pacemaker, Other Additional Past Surgical Histo: NECK/BACK,HIP,EYE,CARPAL TUNNEL Smoking Status: Former Smoker Alcohol Use: None Drug Use: None General Adult EDM: Chief Complaint: SHORTNESS OF BREATH HPI: HPI: Patient is a 88 year old female who was brought here by EMS from home due to trouble breathing, low oxygen saturation. Patient is normally on for 2 L of oxygen at home. For the last few days, she has been having shortness of breath when she was laying down flat. Patient was on 2 L of oxygen daily but lately has to increase to 3 L daily. Her home health nurse checked on her today, found her with low oxygen saturation so she called EMS to take her here for evaluation. Patient denies any cough or fever, no chest pain, no abdominal pain. Patient denies being exposed to anybody with the coronavirus infection. Review of Systems: Review of Systems: Constitutional: Denies fever or chills. [] Eyes: Denies change in visual acuity. [] HENT: Denies nasal congestion or sore throat. [] Respiratory: Denies cough , positive for shortness of breath. [] Cardiovascular: Denies chest pain or edema. [] GI: Denies abdominal pain, nausea, vomiting, bloody stools or diarrhea. [] : Denies dysuria. [] Musculoskeletal: Denies back pain or joint pain. [] Integument: Denies rash. [] Neurologic: Denies headache, focal weakness or sensory changes. [] Endocrine: Denies polyuria or polydipsia. [] Lymphatic: Denies swollen glands. [] Psychiatric: Denies depression or anxiety. [] Heart Score: Risk Factors: Risk Factors: DM, Current or recent (<one month) smoker, HTN, HLP, family history of CAD, obesity. Risk Scores: Score 0 - 3: 2.5% MACE over next 6 weeks - Discharge Home Score 4 - 6: 20.3% MACE over next 6 weeks - Admit for Clinical Observation Score 7 - 10: 72.7% MACE over next 6 weeks - Early Invasive Strategies Current Medications: Current Medications Medications (Trade) Dose Ordered Sig/Lindsey Start Time Stop Time Status Last Admin Dose Admin Furosemide (Lasix) 60 mg 1X ONCE 07/12/19 13:00 07/12/19 13:01 DC 07/12/19 13:09 60 MG Ondansetron HCl (Zofran) 4 mg PRN Q8HRS PRN 07/12/19 13:45 07/13/19 13:44 Allergies: Allergies: Allergies Coded Allergies Type Severity Reaction Last Updated Verified Iodinated Contrast Media Allergy Intermediate Itching 07/31/17 Yes doxazosin Allergy Intermediate 03/14/18 Yes lisinopril Allergy Intermediate 03/14/18 Yes niacin Allergy Intermediate 03/14/18 Yes I S O L A T I O N *CONTACT* Allergy Unknown 07/31/17 Yes atorvastatin Adverse Reaction Intermediate 03/14/18 Yes clonidine Adverse Reaction Intermediate 03/14/18 Yes fluvastatin Adverse Reaction Intermediate 03/14/18 Yes lovastatin Adverse Reaction Intermediate 03/14/18 Yes nifedipine Adverse Reaction Intermediate 03/14/18 Yes rosuvastatin Adverse Reaction Intermediate 03/14/18 Yes Physical Exam: PE: Constitutional: Well developed, well nourished, no acute distress, non-toxic appearance. [] HENT: Normocephalic, atraumatic, bilateral external ears normal, oropharynx moist, no oral exudates, nose normal. FACIAL EDEMA, PERIORBITAL EDEMA. Eyes: PERRLA, EOMI, conjunctiva normal, no discharge. [] Neck: Normal range of motion, no tenderness, supple, no stridor. [] Cardiovascular:Heart rate regular rhythm, no murmur [] Lungs & Thorax: Bilateral breath sounds WITH DIFFUSE RALES, TACHYPNIC. Abdomen: Bowel sounds normal, soft, no tenderness, no masses, no pulsatile masses. [] Skin: Warm, dry, no erythema, no rash. [] Back: No tenderness, no CVA tenderness. [] Extremities: No tenderness, no cyanosis, no clubbing, ROM intact, no edema. [] Neurologic: Alert and oriented X 3, normal motor function, normal sensory function, no focal deficits noted. [] Psychologic: Affect normal, judgement normal, mood normal. [] Current Patient Data: Labs: Laboratory Tests Test 07/12/19 11:28 07/12/19 12:13 White Blood Count 6.4 x10^3/uL (4.0-11.0) Red Blood Count 3.89 x10^6/uL (3.50-5.40) Hemoglobin 8.9 g/dL (12.0-15.5) L Hematocrit 29.1 % (36.0-47.0) L Mean Corpuscular Volume 75 fL (79-100) L Mean Corpuscular Hemoglobin 23 pg (25-35) L Mean Corpuscular Hemoglobin Concent 31 g/dL (31-37) Red Cell Distribution Width 17.1 % (11.5-14.5) H Platelet Count 169 x10^3/uL (140-400) Neutrophils (%) (Auto) 80 % (31-73) H Lymphocytes (%) (Auto) 12 % (24-48) L Monocytes (%) (Auto) 5 % (0-9) Eosinophils (%) (Auto) 3 % (0-3) Basophils (%) (Auto) 0 % (0-3) Neutrophils # (Auto) 5.2 x10^3/uL (1.8-7.7) Lymphocytes # (Auto) 0.8 x10^3/uL (1.0-4.8) L Monocytes # (Auto) 0.3 x10^3/uL (0.0-1.1) Eosinophils # (Auto) 0.2 x10^3/uL (0.0-0.7) Basophils # (Auto) 0.0 x10^3/uL (0.0-0.2) Platelet Estimate Pending Prothrombin Time 13.2 SEC (11.7-14.0) Prothrombin Time INR 1.0 (0.8-1.1) Sodium Level 141 mmol/L (136-145) Potassium Level 4.3 mmol/L (3.5-5.1) Chloride Level 101 mmol/L (98-107) Carbon Dioxide Level 37 mmol/L (21-32) H Anion Gap 3 (6-14) L Blood Urea Nitrogen 22 mg/dL (7-20) H Creatinine 0.8 mg/dL (0.6-1.0) Estimated GFR (Cockcroft-Gault) 67.8 BUN/Creatinine Ratio 28 (6-20) H Glucose Level 135 mg/dL (70-99) H Calcium Level 8.4 mg/dL (8.5-10.1) L Magnesium Level 1.8 mg/dL (1.8-2.4) Total Bilirubin 0.2 mg/dL (0.2-1.0) Aspartate Amino Transferase (AST) 24 U/L (15-37) Alanine Aminotransferase (ALT) 16 U/L (14-59) Alkaline Phosphatase 85 U/L (46-116) Troponin I Quantitative < 0.017 ng/mL (0.000-0.055) IX-Voe-M-Type Natriuretic Peptide 929 pg/mL (0-449) H Total Protein 6.8 g/dL (6.4-8.2) Albumin 3.1 g/dL (3.4-5.0) L Albumin/Globulin Ratio 0.8 (1.0-1.7) L Urine Collection Type Unknown Urine Color Yellow Urine Clarity Clear Urine pH 7.0 (<5.0-8.0) Urine Specific [place] 1.015 (1.000-1.030) Urine Protein Negative mg/dL (NEG-TRACE) Urine Glucose (UA) Negative mg/dL (NEG) Urine Ketones (Stick) Negative mg/dL (NEG) Urine Blood Negative (NEG) Urine Nitrite Negative (NEG) Urine Bilirubin Negative (NEG) Urine Urobilinogen Dipstick 0.2 mg/dL (0.2 mg/dL) Urine Leukocyte Esterase Trace (NEG) Urine RBC 0 /HPF (0-2) Urine WBC 1-4 /HPF (0-4) Urine Bacteria Moderate /HPF (0-FEW) Laboratory Tests 07/12/19 11:28 Laboratory Tests 07/12/19 11:28 Vital Signs: Vital Signs Date Time Temp Pulse Resp B/P (MAP) Pulse Ox O2 Delivery O2 Flow Rate FiO2 07/12/19 12:40 70 18 106/38 (60) 98 Nasal Cannula 2.0 07/12/19 10:41 98.4 98.4 EKG: EKG: EKG was done at 1137, heart rate of 74 bpm, sinus rhythm, no ST segment elevation, Radiology/Procedures: Radiology/Procedures: [facility] [address] [place] [address] IMAGING REPORT Signed PATIENT: SYBIL AUGUSTINE ACCOUNT: [id number] : 1930 LOCATION: ER AGE: 88 SEX: F EXAM STATUS: REG ER ORD. PHYSICIAN: DELMIS LAL DO REASON: SOA PROCEDURE: PORTABLE CHEST 1V PORTABLE CHEST 1V Clinical indications: Shortness of air COMPARISON: January 22, 2019. Findings: Bilateral interstitial and nodular lung infiltrates are seen which may represent pulmonary edema. Small bilateral pleural effusions are seen right greater than left. There is elevation of the right hemidiaphragm. This may be due to subpulmonic effusion. No pneumothorax is seen. Heart size is stable. 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 The mediastinum is stable. Old healed left rib cage fractures are seen. IMPRESSION: Moderate CHF. Electronically signed by: Angelito Corral MD (07/12/2019 11:59 AM) [id number] DICTATED and SIGNED BY: ANGELITO CORRAL MD DATE: 07/12/19 1159 Course & Med Decision Making: Course & Med Decision Making Pertinent Labs and Imaging studies reviewed. (See chart for details) Patient is an 88-year-old female with history of CHF, however she is not on any Lasix. Patient was evaluated in the ER due to trouble breathing, her chest x- ray showed modest pulmonary edema. Patient was given 60 mg Lasix IV in the ER, she will be admitted to hospital for cardiology evaluation. Dragon Disclaimer: Dragon Disclaimer: This electronic medical record was generated, in whole or in part, using a voice recognition dictation system. Departure Departure Impression: Primary Impression: Acute on chronic diastolic (congestive) heart failure Disposition: ADMITTED INPATIENT Admitting Physician: Esau Castelan Condition: STABLE Referrals: ESAU CASTELAN MD (PCP) Justicifation of Admission Dx: Justifications for Admission: Justification of Admission Dx: Yes CHF: Hemodynamic Instability DELMIS LAL DO Jul 12, 2019 13:46
[2019-07-12 14:50] VITALS: BP 149/67
[2019-07-12] MEDS ORDERED: HYDROcodone/APAP 5/325MG 1 TAB TABLET PO PRN (15:15)
[2019-07-12] MEDS ORDERED: ACETAMINOPHEN 325 MG TABLET. PO PRN (15:15)
[2019-07-12] MEDS ORDERED: BISACODYL 10 MG SUPP.RECT. PR PRN (15:15)
[2019-07-12] MEDS ORDERED: ALBUTEROL SULFATE 2.5 MG/3 ML NEBU. NEB PRN (15:15)
--- NOTE | 2019-07-12 15:21 | PDOC2 ---
CARDIAC CONSULT DATE OF CONSULT Date of Consult DATE: 07/12/19 TIME: 15:11 REASON FOR CONSULT Reason for Consult: CHF REFERRING PHYSICIAN Referring Physician: Too SOURCE Source: Chart review, Patient HISTORY OF PRESENT ILLNESS HISTORY OF PRESENT ILLNESS This is a pleasant 88 yo female admitted for complains of shortness of breath. She has O2 at 2.5 and in the last 2 days this has been more pronounced. She has been urinating more often and has been SOA when supine but no significant peripheral edema. Reports that SBP runs at 140s and at times goes up to 170s. No chest pain, nausea or vomiting. She is WC bound and receives private care. Her O2 sat was checked and was noted in the upper 80s despite O2 use. It is unclear if she has underlying KYLE but known for moderate mitral stenosis. No complains of palpitations and no presyncopa or syncopal spell. She missed her appointment in our office as she was in rehabd at some point from late January to early March. No fever chills and no productive coughing. PAST MEDICAL HISTORY Past Medical History Cardiovascular: CHF, HTN, Syncope, Hyperlipidemia, Other (SSS/CSH), coronary calcifications Pulmonary: COPD, Pneumonia, Other (BOOP) CENTRAL NERVOUS SYSTEM: Peripheral neuropathy GI: Constipation, GERD, Hemorrhoids Heme/Onc: Anemia NOS Psych: Anxiety Musculoskeletal: Osteoarthritis Rheumatologic: Fibromyalgia, RA Infectious disease: No pertinent hx Renal/: UTI Endocrine: Diabetes (2), CKD2 Dermatology: PAST SURGICAL HISTORY Past Surgical History Pacemaker, Total hip replacement (right), Other (colon polypectomy; lumbar laminectomy) FAMILY HISTORY Family History: Heart Disease SOCIAL HISTORY Smoke: No ALCOHOL: none Drugs: None Lives: Alone CURRENT MEDICATIONS CURRENT MEDICATIONS Current Medications Medications (Trade) Dose Ordered Sig/Lindsey Route PRN Reason Start Time Stop Time Status Last Admin Dose Admin Furosemide (Lasix) 60 mg 1X ONCE IVP 07/12/19 13:00 07/12/19 13:01 DC 07/12/19 13:09 ALLERGIES ALLERGIES: Coded Allergies: Iodinated Contrast Media (Verified Allergy, Intermediate, Itching, 07/31/17) doxazosin (Verified Allergy, Intermediate, 03/14/18) lisinopril (Verified Allergy, Intermediate, 03/14/18) niacin (Verified Allergy, Intermediate, 03/14/18) I S O L A T I O N *CONTACT* (Verified Allergy, Unknown, 07/31/17) mrsa screen + atorvastatin (Verified Adverse Reaction, Intermediate, 03/14/18) clonidine (Verified Adverse Reaction, Intermediate, 03/14/18) fluvastatin (Verified Adverse Reaction, Intermediate, 03/14/18) lovastatin (Verified Adverse Reaction, Intermediate, 03/14/18) nifedipine (Verified Adverse Reaction, Intermediate, 03/14/18) rosuvastatin (Verified Adverse Reaction, Intermediate, 03/14/18) ROS Review of System 14 point ROS evaluated with pertinent positives noted per HPI PHYSICAL EXAM General: Alert, Oriented X3, Cooperative, No acute distress HEENT: Mucous membr. moist/pink Lungs: Other (basilar crackles) Heart: Regular rate (SR), Normal S1, Other (apical diastolic murmur /, S3) Abdomen: Soft, No tenderness Extremities: No cyanosis, No edema Skin: No breakdown, No significant lesion Neuro: Normal speech, Sensation intact Psych/Mental Status: Mental status NL, Mood NL MUSCULOSKELETAL: Osteoarthritic changes both hands VITALS/I&O VITALS/I&O: Vital Signs Date Time Temp Pulse Resp B/P (MAP) Pulse Ox O2 Delivery O2 Flow Rate FiO2 07/12/19 14:10 82 18 179/63 (101) 97 Nasal Cannula 2.0 07/12/19 10:41 98.4 98.4 LABS Lab: Laboratory Tests Test 07/12/19 11:28 07/12/19 12:13 White Blood Count 6.4 x10^3/uL (4.0-11.0) Red Blood Count 3.89 x10^6/uL (3.50-5.40) Hemoglobin 8.9 g/dL (12.0-15.5) L Hematocrit 29.1 % (36.0-47.0) L Mean Corpuscular Volume 75 fL (79-100) L Mean Corpuscular Hemoglobin 23 pg (25-35) L Mean Corpuscular Hemoglobin Concent 31 g/dL (31-37) Red Cell Distribution Width 17.1 % (11.5-14.5) H Platelet Count 169 x10^3/uL (140-400) Neutrophils (%) (Auto) 80 % (31-73) H Lymphocytes (%) (Auto) 12 % (24-48) L Monocytes (%) (Auto) 5 % (0-9) Eosinophils (%) (Auto) 3 % (0-3) Basophils (%) (Auto) 0 % (0-3) Neutrophils # (Auto) 5.2 x10^3/uL (1.8-7.7) Lymphocytes # (Auto) 0.8 x10^3/uL (1.0-4.8) L Monocytes # (Auto) 0.3 x10^3/uL (0.0-1.1) Eosinophils # (Auto) 0.2 x10^3/uL (0.0-0.7) Basophils # (Auto) 0.0 x10^3/uL (0.0-0.2) Platelet Estimate Pending Prothrombin Time 13.2 SEC (11.7-14.0) Prothrombin Time INR 1.0 (0.8-1.1) Sodium Level 141 mmol/L (136-145) Potassium Level 4.3 mmol/L (3.5-5.1) Chloride Level 101 mmol/L (98-107) Carbon Dioxide Level 37 mmol/L (21-32) H Anion Gap 3 (6-14) L Blood Urea Nitrogen 22 mg/dL (7-20) H Creatinine 0.8 mg/dL (0.6-1.0) Estimated GFR (Cockcroft-Gault) 67.8 BUN/Creatinine Ratio 28 (6-20) H Glucose Level 135 mg/dL (70-99) H Calcium Level 8.4 mg/dL (8.5-10.1) L Magnesium Level 1.8 mg/dL (1.8-2.4) Total Bilirubin 0.2 mg/dL (0.2-1.0) Aspartate Amino Transferase (AST) 24 U/L (15-37) Alanine Aminotransferase (ALT) 16 U/L (14-59) Alkaline Phosphatase 85 U/L (46-116) Troponin I Quantitative < 0.017 ng/mL (0.000-0.055) [id number]-Type Natriuretic Peptide 929 pg/mL (0-449) H Total Protein 6.8 g/dL (6.4-8.2) Albumin 3.1 g/dL (3.4-5.0) L Albumin/Globulin Ratio 0.8 (1.0-1.7) L Urine Collection Type Unknown Urine Color Yellow Urine Clarity Clear Urine pH 7.0 (<5.0-8.0) Urine Specific [place] 1.015 (1.000-1.030) Urine Protein Negative mg/dL (NEG-TRACE) Urine Glucose (UA) Negative mg/dL (NEG) Urine Ketones (Stick) Negative mg/dL (NEG) Urine Blood Negative (NEG) Urine Nitrite Negative (NEG) Urine Bilirubin Negative (NEG) Urine Urobilinogen Dipstick 0.2 mg/dL (0.2 mg/dL) Urine Leukocyte Esterase Trace (NEG) Urine RBC 0 /HPF (0-2) Urine WBC 1-4 /HPF (0-4) Urine Bacteria Moderate /HPF (0-FEW) Laboratory Tests 07/12/19 11:28 Laboratory Tests 07/12/19 11:28 ECHOCARDIOGRAM ECHOCARDIOGRAM <Conclusion> The left ventricular systolic function is normal and the ejection fraction is within normal range. The Ejection Fraction is 55-60%. There is grossly normal LV segmental wall motion. Not well visualized. Calculated mitral valve area is 1.7 cm2 with maximum pressure gradient of 9 mmHg and mean pressure gradient of 6 mmHg. There is moderate mitral valve stenosis. Doppler and Color Flow revealed trace to mild tricuspid regurgitation. There is moderate pulmonary hypertension. The PA pressure was estimated at 51 mmHg. DATE: 01/04/19 1445 HEART CATH HEART CATH FINDINGS 1. Hemodynamics: Left ventricular end-diastolic pressure of 6 mmHg. No pullback gradient across the aortic valve. 2. Coronary angiography: a. The left main coronary artery arose from the left sinus of Valsalva, gave rise to the left anterior descending and left circumflex arteries and did not show any significant stenosis. b. The left anterior descending artery did not show any significant stenosis. c. The left circumflex artery did not show any significant stenosis. d. The right coronary artery was a large and dominant vessel arising from the right sinus of Valsalva that showed 50-60% stenosis in the proximal segment that was physiologically insignificant based on FFR measurement. Conclusion Nonobstructive coronary artery disease involving right coronary artery, proved physiologically insignificant with IFR measurement. Recommendations Medical Therapy DATE: 01/22/19 1155 ASSESSMENT/PLAN ASSESSMENT/PLAN 1. Acute on chronic diastolic CHF 2. CAD: moderate lesion to RCA 01/2019 LHC 3. Moderate mitral stenosis 4. COPD 5. HTN: labile episode 6. HLP 7. PPM with SSS: [facility] 8. Statin allergy Recommendations 1. Interrogate device, Discussed with RN, will utilize ER ANJU and if not accessible then will notify [facility]. 2. Consider PCSK9i for HLP/CAD 3. Secondary prevention measures. Lasix 60 mg received in ED with good UOP. Continue lasix therapy. 4. Limited TTE today and note MS and EF, FLP 5. Continue home BP regimen and will adjust per trend EMANUEL KELLEY CDA TEACHER Jul 12, 2019 15:21
[2019-07-12 15:30] LABS: HYPOCHROMIA SLIGHT; PLT ESTIMATE ADEQUATE (ADEQUATE)
[2019-07-12 15:31] LABS: ANISOCYTOSIS SLIGHT; MICROCYTOSIS SLIGHT
--- NOTE | 2019-07-12 15:38 | PDOC ---
Provider Note Provider Note history and physical dictated # [id number] Justicifation of Admission Dx: Justifications for Admission: Justification of Admission Dx: Yes Comments: acute on chronic diastolic chf treated with iv lasix. acute on chronic hypoxic respiratory failure KARAN KIMBLE MD Jul 12, 2019 15:38
--- NOTE | 2019-07-12 16:41 | HP ---
ADMIT DATE: 07/12/2019 LOCATION: She is in room 250. HISTORY OF PRESENT ILLNESS: The patient is an 88-year-old white female with history of diabetes mellitus type 2 with peripheral neuropathy, treated with diet; hypertension, hyperlipidemia who has mitral stenosis and nonobstructive coronary artery disease as well as chronic obstructive pulmonary disease and chronic hypoxic respiratory failure, was maintained on oxygen 2.5 liters per nasal cannula at home, who was admitted to [facility] through the Emergency Room on 07/12/2019 with shortness of breath. She notes shortness of breath for the last couple of days, especially today and also oxygen saturations were around 89% at home. She sought help at the [facility] Emergency Room. She says she takes furosemide 20 mg on Mondays, Wednesdays, and Fridays at home. A chest x-ray showed bilateral interstitial and alveolar infiltrates. She was given 60 mg of Lasix IV in the Emergency Room. She is subsequently admitted to the hospital for further evaluation and treatment. She denies any chest pain. ALLERGIES: INCLUDE IV IODINE, ATORVASTATIN, CLONIDINE, DOXAZOSIN, FLUVASTATIN, LISINOPRIL, LOVASTATIN, NIACIN, NIFEDIPINE, AND ROSUVASTATIN. MEDICATIONS: Advair Diskus 250/50 mcg 1 puff b.i.d., albuterol nebulizer treatments every 4 hours p.r.n., alprazolam 0.5 mg b.i.d., amlodipine 10 mg every day, aspirin 81 mg every day, carvedilol 6.25 mg b.i.d., Colace 100 mg b.i.d., fentanyl 12 mcg patch every 72 hours, furosemide 20 mg p.o. t.i.d. p.r.n., Lidoderm patch p.r.n., Lyrica 50 mg b.i.d., melatonin 5 mg at bedtime, Minerva 5/325 one tablet t.i.d. p.r.n., omeprazole 20 mg b.i.d., MiraLax p.r.n., Requip 1 mg p.o. t.i.d., sertraline is 100 mg every day, vitamin D is 1000 units every day and Ambien 5 mg at bedtime. PAST MEDICAL HISTORY: Significant for hospitalization at [facility] 01/2019 for chest pain, which was due to esophageal spasm. She underwent a cardiac catheterization seen by Dr. Jones and it showed a 50-60% stenosis, right coronary artery, which was felt with resistance testing and was felt to be nonobstructive coronary artery disease. The patient has a history of chronic diastolic congestive heart failure. She had an echocardiogram done, I believe in 12/2018, which showed a preserved left ventricular ejection fraction with moderate pulmonary hypertension and moderate mitral stenosis. She has a history of nonobstructive coronary artery disease as mentioned. She had a non-ST segment elevated myocardial infarction due to demand ischemia in 01/2019, diabetes mellitus type 2 with peripheral neuropathy, treated with diet; hypertension. Hyperlipidemia with statin intolerance, chronic hypoxic respiratory failure, chronic obstructive pulmonary disease, chronic diastolic congestive heart failure, anemia of chronic disease. She also has a history of gastroesophageal reflux disease. She had trigger fingers in the past. She has had a dilatation of esophageal stricture in 2007. She has a permanent pacemaker for sick sinus syndrome in 04/2017, cataract extraction, cholecystectomy, hysterectomy, right hip hemiarthroplasty for hip fracture in 09/2015, erosive gastritis in the past, fibromyalgia, gout in the past, lumbar spondylosis, bile-induced gastritis, cellulitis in right leg in 2010, pneumonia in 2010, colon polyps that were biopsied in 2011. SOCIAL HISTORY: She does not drink alcohol nor does she smoke cigarettes. She is confined to a wheelchair and she has caregivers at home. FAMILY HISTORY: Noncontributory. REVIEW OF SYSTEMS: GENERAL: She denies any fever, chills or sweats in the last 3 days. CARDIOVASCULAR: No chest pain. PULMONARY: She has shortness of breath but no cough. GASTROINTESTINAL: No diarrhea. ENDOCRINE: She has diabetes mellitus, treated with diet. SKIN: No rashes. Rest of systems reviewed are negative except as stated in history of present illness. PHYSICAL EXAMINATION: VITAL SIGNS: Temperature is 98.4 degrees, apical pulse is 82, respiratory rate 18, blood pressure 179/63, oxygen saturation 97% on 2 liters per nasal cannula. HEENT: Eyes: Gaze is conjugate. Mouth: Tongue is midline. She wears dentures. NECK: No cervical lymphadenopathy. HEART: Reveals an S1, S2. There is no S3 or murmur. LUNGS: Reveal decreased breath sounds with few rhonchi. ABDOMEN: Soft, nontender, obese. EXTREMITIES: Lower extremities without edema. Both feet are warm. 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 No facial asymmetry. She did not notice any increased swelling in the face or neck. LABORATORY DATA: White count was 6.4, hemoglobin 8.9. Previous hemoglobin was 9.8. Her platelet count is 169,000, 80 polys and 12 lymphocytes. INR 1.0. Sodium 141, potassium 4.3, chloride 101, total CO2 was 37 with BUN 22 and creatinine 0.8, blood sugar was 135. Liver function tests normal. ProBNP 929. Troponin levels less than 0.017. Albumin was 3.1. Urinalysis showed 0 red cells and 1-4 white cells. EKG showed a sinus rhythm with delayed precordial R-wave progression with possible old anterior wall myocardial infarction. The chest x-ray showed bilateral interstitial and nodular lung infiltrates, which could represent pulmonary edema. She has small bilateral pleural effusions, right side was greater than the left. She had elevation of right hemidiaphragm. Heart size was stable. It was consistent with congestive heart failure per the radiologist. ASSESSMENT: 1. Acute on chronic diastolic congestive heart failure. 2. Acute on chronic hypoxic respiratory failure. 3. Mitral stenosis. 4. Moderate pulmonary hypertension. 5. Diabetes mellitus type 2 with peripheral neuropathy, treated with diet. 6. Hypertension. 7. Hyperlipidemia with statin intolerance. 8. Anemia of chronic disease. 9. Chronic obstructive pulmonary disease. 10. Nonobstructive coronary artery disease. 11. Fibromyalgia. 12. Chronic pain. PLAN: At this time is to consult Dr. Jones. We will put her on Lasix 40 mg IV daily. She got 60 of Lasix already. So was given Lasix 40 IV tomorrow, potassium chloride 20 mEq every day. Put her on Lovenox for deep vein thrombosis prophylaxis. Resume her home medications. Put her on a cardiac diet. We will also consult the cyber incident analyst. Recheck her labs again tomorrow. KARAN KIMBLE MD DR: KATHY/ben JOB#: [id number] / [id number]
[2019-07-12] MEDS: CARVEDILOL 6.25 MG TABLET. PO SCH (17:20)
[2019-07-12] MEDS: ENOXAPARIN 40 MG/0.4 ML SYRINGE. SQ SCH (17:21)
[2019-07-12 19:28] VITALS: BP 141/42
[2019-07-12] MEDS: rOPINIRole 1 MG TABLET. PO SCH (20:24)
[2019-07-12] MEDS: ALPRAZolam 0.5 MG TABLET PO SCH (20:24)
[2019-07-12] MEDS: ZOLPIDEM 5 MG TABLET. PO SCH (20:24)
[2019-07-12] MEDS: DOCUSATE SODIUM 100 MG CAPSULE. PO SCH (20:25)
[2019-07-12] MEDS: PREGABALIN 50 MG CAPSULE PO SCH (20:25)
[2019-07-12 23:22] VITALS: BP 132/39
[2019-07-13 03:59] VITALS: BP 129/42
[2019-07-13 06:08] LABS: BASO % 0 % (0-3); EOS # 0.2 x10^3/uL (0.0-0.7); EOS % 3 % (0-3); HEMATOCRIT 28.1 % (36.0-47.0); HEMOGLOBIN 8.5 g/dL (12.0-15.5); LYMPH # 1.1 x10^3/uL (1.0-4.8); LYMPH % 20 % (24-48); MEAN CORPUSCULAR HEMOGLOBIN 23 pg (25-35); MEAN CORPUSCULAR HGB CONC 30 g/dL (31-37); MEAN CORPUSCULAR VOLUME 74 fL (79-100); MONO # 0.5 x10^3/uL (0.0-1.1); MONO % 9 % (0-9); NEUT % 68 % (31-73); PLATELET COUNT 173 x10^3/uL (140-400); RED BLOOD COUNT 3.78 x10^6/uL (3.50-5.40); RED CELL DISTRIBUTION WIDTH 17.1 % (11.5-14.5); WHITE BLOOD COUNT 5.8 x10^3/uL (4.0-11.0)
[2019-07-13 06:21] LABS: CALCIUM 8.5 mg/dL (8.5-10.1); CREATININE 0.8 mg/dL (0.6-1.0); GFR 67.8; MAGNESIUM 1.6 mg/dL (1.8-2.4); POTASSIUM 3.9 mmol/L (3.5-5.1)
[2019-07-13 06:29] LABS: CHOLESTEROL/HDL RATIO 3.5
[2019-07-13 07:15] VITALS: BP 142/64
[2019-07-13] MEDS: CHOLECALCIFEROL (VITAMIN D3) 1,000 UNIT TABLET PO SCH (08:52)
[2019-07-13] MEDS: rOPINIRole 1 MG TABLET. PO SCH ×3 (08:52→21:43)
[2019-07-13] MEDS: ASPIRIN 325 MG TABLET PO SCH (08:53)
[2019-07-13] MEDS: ALPRAZolam 0.5 MG TABLET PO SCH ×2 (08:53→21:43)
[2019-07-13] MEDS: SERTRALINE 50 MG TABLET. PO SCH (08:53)
[2019-07-13] MEDS: POTASSIUM CHLORIDE 20 MEQ TABLET.ER. PO SCH (08:54)
[2019-07-13] MEDS: DOCUSATE SODIUM 100 MG CAPSULE. PO SCH ×2 (08:54→21:43)
[2019-07-13] MEDS: PREGABALIN 50 MG CAPSULE PO SCH ×2 (08:54→21:44)
[2019-07-13] MEDS: PANTOPRAZOLE 40 MG TABLET.DR. PO SCH (08:55)
[2019-07-13] MEDS: CARVEDILOL 6.25 MG TABLET. PO SCH ×2 (08:55→18:06)
[2019-07-13] MEDS: MULTIVITAMIN with MINERAL TABLET. PO SCH (08:55)
[2019-07-13] MEDS: amLODIPine BESYLATE 10 MG TABLET PO SCH (08:55)
[2019-07-13] MEDS: FUROSEMIDE 40 MG/4 ML VIAL. IVP SCH (08:55)
[2019-07-13] MEDS: POLYETHYLENE GLYCOL 3350 17 GM PACKET. PO PRN (08:56)
--- NOTE | 2019-07-13 10:54 | CONS ---
DATE OF CONSULTATION: PULMONARY CONSULTATION ATTENDING PHYSICIAN: Esau Castelan MD. REASON FOR CONSULTATION: Dyspnea. HISTORY OF PRESENT ILLNESS: The patient is an 88-year-old who has no significant tobacco history. She is normally on oxygen at 2.5-3 liters. She was brought into the hospital with increasing dyspnea. She has history of peripheral neuropathy, hyperlipidemia, and hypertension. The patient denied any chest pains. She states that she was taking Lasix 20 mg on Mondays, Wednesdays, and Fridays and the Lasix dose may have been recently changed or reduced. In the Emergency Room, her chest x-ray was performed and that was reviewed by me. She has development of bilateral infiltrates, interstitial and alveolar with small pleural effusions, more on the right and elevated right hemidiaphragm. This is consistent with CHF. She had previous x-rays in January which showed mild congestive heart failure at that time and this is worse. She also had a left heart catheterization in 01/2019 and it showed normal left ventricular end-diastolic pressure of 6. Nonobstructive coronary artery disease involving right coronary artery. The patient's echocardiogram in 12/2018 had an EF of 55%-60% and moderate mitral valve stenosis. There was also moderate secondary pulmonary hypertension with a PA pressure of 51. I have been asked to see her for further evaluation. PAST MEDICAL HISTORY: Significant for history of prior left heart catheterization as discussed above. History of chronic diastolic heart failure, history of moderate mitral stenosis. History of non-ST SC, peripheral neuropathy, GE reflux. PAST SURGICAL HISTORY: All surgeries from Dr. Castelan's H and P's were reviewed and as discussed there. SOCIAL HISTORY: Does not have any history of tobacco or alcohol use. FAMILY HISTORY: Noncontributory to lungs. REVIEW OF SYSTEMS: Twelve-point system obtained. Pertinent positives discussed in my history of present illness, otherwise noncontributory. All systems that were negative were reviewed as well. ALLERGIES: All reviewed as listed in the MRAD. MEDICATIONS: All reviewed as listed in the MRAD including Lovenox for DVT prophylaxis and furosemide IV daily. PHYSICAL EXAMINATION: VITAL SIGNS: She is currently on oxygen at 3 liters. Blood pressure 142/64, afebrile, pulse ox 96%. HEENT: Sclerae nonicteric. NECK: Supple. LUNGS: With few crackles posteriorly. CARDIOVASCULAR: With a regular rate. ABDOMEN: Soft, nontender. EXTREMITIES: With no pitting edema. LABORATORY DATA: Reviewed. White cell count 5.8, hemoglobin 8.5 and platelets are 173. BUN is 21 and a creatinine of 0.8. IMPRESSION: 1. Acute on chronic respiratory failure secondary to development of congestive heart failure. 2. The patient with history of chronic diastolic heart failure and moderate mitral stenosis, likely contributing factor to congestive heart failure. 3. Abnormal chest x-ray with bilateral interstitial and alveolar infiltrates and elevated right hemidiaphragm consistent with congestive heart failure. 4. No significant history of tobacco use. 5. 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 RECOMMENDATIONS: 1. From a pulmonary standpoint, she needs to be diuresed. Currently on Lasix. 2. We follow the response to treatment with a chest x-ray in the next 48 hours. 3. If the chest x-ray does not improve, then we will consider noncontrast CT chest. 4. Follow Cardiology recommendations. 5. Clinically, no suspicion for pneumonia. 6. DVT prophylaxis with Lovenox. 7. Discussed with RN and we will follow along with you. YONI MALIK MD DR: EMILEE/ben JOB#: [id number] / [id number]
--- NOTE | 2019-07-13 10:57 | PDOC ---
PROGRESS NOTES Subjective Subjective shortness of breath at times. had a good diuresis. magnesium low. constipated. Objective Objective Vital Signs Date Time Temp Pulse Resp B/P (MAP) Pulse Ox O2 Delivery O2 Flow Rate FiO2 07/13/19 08:55 73 142/64 07/13/19 08:00 Nasal Cannula 3.0 07/13/19 07:15 97.9 18 96 97.9 Intake and Output 07/13/19 07:00 Intake Total 170 ml Output Total 2150 ml Balance -1980 ml Intake Oral 170 ml Output Urine Total 2150 ml Physical Exam Abdomen: Soft Heart: Regular rate, Normal S1, Normal S2 Extremities: No edema General: Alert HEENT: Atraumatic Lungs: Other (few crackles right lung base. bilateral decreased breath sounds) Neuro: Normal speech Psych/Mental Status: Mental status NL Skin: No rashes Assessment Assessment 1. Acute on chronic diastolic congestive heart failure. 2. Acute on chronic hypoxic respiratory failure. 3. Mitral stenosis. 4. Moderate pulmonary hypertension. 5. Diabetes mellitus type 2 with peripheral neuropathy, treated with diet. 6. Hypertension. 7. Hyperlipidemia with statin intolerance. 8. Anemia of chronic disease. 9. Chronic obstructive pulmonary disease. 10. Nonobstructive coronary artery disease. 11. Fibromyalgia. 12. Chronic pain. hypomagnesemia constipation Plan Plan of Care continue iv lasix iv magnesium today labs and cxr tomorrow continue lovenox for dvt prophylaxis lactulose today Comment Review of Relevant I have reviewed the following items lizbeth (where applicable) has been applied. Labs Laboratory Tests Test 07/12/19 11:28 07/12/19 12:13 07/12/19 16:49 07/12/19 20:33 White Blood Count 6.4 x10^3/uL (4.0-11.0) Red Blood Count 3.89 x10^6/uL (3.50-5.40) Hemoglobin 8.9 g/dL (12.0-15.5) Hematocrit 29.1 % (36.0-47.0) Mean Corpuscular Volume 75 fL (79-100) Mean Corpuscular Hemoglobin 23 pg (25-35) Mean Corpuscular Hemoglobin Concent 31 g/dL (31-37) Red Cell Distribution Width 17.1 % (11.5-14.5) Platelet Count 169 x10^3/uL (140-400) Neutrophils (%) (Auto) 80 % (31-73) Lymphocytes (%) (Auto) 12 % (24-48) Monocytes (%) (Auto) 5 % (0-9) Eosinophils (%) (Auto) 3 % (0-3) Basophils (%) (Auto) 0 % (0-3) Neutrophils # (Auto) 5.2 x10^3/uL (1.8-7.7) Lymphocytes # (Auto) 0.8 x10^3/uL (1.0-4.8) Monocytes # (Auto) 0.3 x10^3/uL (0.0-1.1) Eosinophils # (Auto) 0.2 x10^3/uL (0.0-0.7) Basophils # (Auto) 0.0 x10^3/uL (0.0-0.2) Platelet Estimate Adequate (ADEQUATE) Hypochromasia Slight Anisocytosis Slight Microcytosis Slight Prothrombin Time 13.2 SEC (11.7-14.0) Prothromb Time International Ratio 1.0 (0.8-1.1) Sodium Level 141 mmol/L (136-145) Potassium Level 4.3 mmol/L (3.5-5.1) Chloride Level 101 mmol/L (98-107) Carbon Dioxide Level 37 mmol/L (21-32) Anion Gap 3 (6-14) Blood Urea Nitrogen 22 mg/dL (7-20) Creatinine 0.8 mg/dL (0.6-1.0) Estimated GFR (Cockcroft-Gault) 67.8 BUN/Creatinine Ratio 28 (6-20) Glucose Level 135 mg/dL (70-99) Calcium Level 8.4 mg/dL (8.5-10.1) Magnesium Level 1.8 mg/dL (1.8-2.4) Total Bilirubin 0.2 mg/dL (0.2-1.0) Aspartate Amino Transf (AST/SGOT) 24 U/L (15-37) Alanine Aminotransferase (ALT/SGPT) 16 U/L (14-59) Alkaline Phosphatase 85 U/L (46-116) Troponin I Quantitative < 0.017 ng/mL (0.000-0.055) JD-Yrd-D-Type Natriuretic Peptide 929 pg/mL (0-449) Total Protein 6.8 g/dL (6.4-8.2) Albumin 3.1 g/dL (3.4-5.0) Albumin/Globulin Ratio 0.8 (1.0-1.7) Urine Collection Type Unknown Urine Color Yellow Urine Clarity Clear Urine pH 7.0 (<5.0-8.0) Urine Specific [place] 1.015 (1.000-1.030) Urine Protein Negative mg/dL (NEG-TRACE) Urine Glucose (UA) Negative mg/dL (NEG) Urine Ketones (Stick) Negative mg/dL (NEG) Urine Blood Negative (NEG) Urine Nitrite Negative (NEG) Urine Bilirubin Negative (NEG) Urine Urobilinogen Dipstick 0.2 mg/dL (0.2 mg/dL) Urine Leukocyte Esterase Trace (NEG) Urine RBC 0 /HPF (0-2) Urine WBC 1-4 /HPF (0-4) Urine Bacteria Moderate /HPF (0-FEW) Glucose (Fingerstick) 144 mg/dL (70-99) 122 mg/dL (70-99) Test 07/13/19 05:20 07/13/19 05:30 07/13/19 07:27 07/13/19 09:06 Triglycerides Level 171 mg/dL (0-150) Cholesterol Level 203 mg/dL (0-200) LDL Cholesterol, Calculated 111 mg/dL (0-100) VLDL Cholesterol, Calculated 34 mg/dL (0-40) Non-HDL Cholesterol Calculated 145 mg/dL (0-129) HDL Cholesterol 58 mg/dL (40-60) Cholesterol/HDL Ratio 3.5 White Blood Count 5.8 x10^3/uL (4.0-11.0) Red Blood Count 3.78 x10^6/uL (3.50-5.40) Hemoglobin 8.5 g/dL (12.0-15.5) Hematocrit 28.1 % (36.0-47.0) Mean Corpuscular Volume 74 fL (79-100) Mean Corpuscular Hemoglobin 23 pg (25-35) Mean Corpuscular Hemoglobin Concent 30 g/dL (31-37) Red Cell Distribution Width 17.1 % (11.5-14.5) Platelet Count 173 x10^3/uL (140-400) Neutrophils (%) (Auto) 68 % (31-73) Lymphocytes (%) (Auto) 20 % (24-48) Monocytes (%) (Auto) 9 % (0-9) Eosinophils (%) (Auto) 3 % (0-3) Basophils (%) (Auto) 0 % (0-3) Neutrophils # (Auto) 4.0 x10^3/uL (1.8-7.7) Lymphocytes # (Auto) 1.1 x10^3/uL (1.0-4.8) Monocytes # (Auto) 0.5 x10^3/uL (0.0-1.1) Eosinophils # (Auto) 0.2 x10^3/uL (0.0-0.7) Basophils # (Auto) 0.0 x10^3/uL (0.0-0.2) Sodium Level 142 mmol/L (136-145) Potassium Level 3.9 mmol/L (3.5-5.1) Chloride Level 98 mmol/L (98-107) Carbon Dioxide Level 41 mmol/L (21-32) Anion Gap 3 (6-14) Blood Urea Nitrogen 21 mg/dL (7-20) Creatinine 0.8 mg/dL (0.6-1.0) Estimated GFR (Cockcroft-Gault) 67.8 Glucose Level 86 mg/dL (70-99) Calcium Level 8.5 mg/dL (8.5-10.1) Magnesium Level 1.6 mg/dL (1.8-2.4) Troponin I Quantitative < 0.017 ng/mL (0.000-0.055) Glucose (Fingerstick) 86 mg/dL (70-99) 191 mg/dL (70-99) Laboratory Tests Test 07/12/19 11:28 07/12/19 12:13 07/12/19 16:49 07/12/19 20:33 White Blood Count 6.4 x10^3/uL (4.0-11.0) Red Blood Count 3.89 x10^6/uL (3.50-5.40) Hemoglobin 8.9 g/dL (12.0-15.5) Hematocrit 29.1 % (36.0-47.0) Mean Corpuscular Volume 75 fL (79-100) Mean Corpuscular Hemoglobin 23 pg (25-35) Mean Corpuscular Hemoglobin Concent 31 g/dL (31-37) Red Cell Distribution Width 17.1 % (11.5-14.5) Platelet Count 169 x10^3/uL (140-400) Neutrophils (%) (Auto) 80 % (31-73) Lymphocytes (%) (Auto) 12 % (24-48) Monocytes (%) (Auto) 5 % (0-9) Eosinophils (%) (Auto) 3 % (0-3) Basophils (%) (Auto) 0 % (0-3) Neutrophils # (Auto) 5.2 x10^3/uL (1.8-7.7) Lymphocytes # (Auto) 0.8 x10^3/uL (1.0-4.8) Monocytes # (Auto) 0.3 x10^3/uL (0.0-1.1) Eosinophils # (Auto) 0.2 x10^3/uL (0.0-0.7) Basophils # (Auto) 0.0 x10^3/uL (0.0-0.2) Platelet Estimate Adequate (ADEQUATE) Hypochromasia Slight Anisocytosis Slight Microcytosis Slight Prothrombin Time 13.2 SEC (11.7-14.0) Prothromb Time International Ratio 1.0 (0.8-1.1) Sodium Level 141 mmol/L (136-145) Potassium Level 4.3 mmol/L (3.5-5.1) Chloride Level 101 mmol/L (98-107) Carbon Dioxide Level 37 mmol/L (21-32) Anion Gap 3 (6-14) Blood Urea Nitrogen 22 mg/dL (7-20) Creatinine 0.8 mg/dL (0.6-1.0) Estimated GFR (Cockcroft-Gault) 67.8 BUN/Creatinine Ratio 28 (6-20) Glucose Level 135 mg/dL (70-99) Calcium Level 8.4 mg/dL (8.5-10.1) Magnesium Level 1.8 mg/dL (1.8-2.4) Total Bilirubin 0.2 mg/dL (0.2-1.0) Aspartate Amino Transf (AST/SGOT) 24 U/L (15-37) Alanine Aminotransferase (ALT/SGPT) 16 U/L (14-59) Alkaline Phosphatase 85 U/L (46-116) Troponin I Quantitative < 0.017 ng/mL (0.000-0.055) BZ-Pvz-U-Type Natriuretic Peptide 929 pg/mL (0-449) Total Protein 6.8 g/dL (6.4-8.2) Albumin 3.1 g/dL (3.4-5.0) Albumin/Globulin Ratio 0.8 (1.0-1.7) Urine Collection Type Unknown Urine Color Yellow Urine Clarity Clear Urine pH 7.0 (<5.0-8.0) Urine Specific [place] 1.015 (1.000-1.030) Urine Protein Negative mg/dL (NEG-TRACE) Urine Glucose (UA) Negative mg/dL (NEG) Urine Ketones (Stick) Negative mg/dL (NEG) Urine Blood Negative (NEG) Urine Nitrite Negative (NEG) Urine Bilirubin Negative (NEG) Urine Urobilinogen Dipstick 0.2 mg/dL (0.2 mg/dL) Urine Leukocyte Esterase Trace (NEG) Urine RBC 0 /HPF (0-2) Urine WBC 1-4 /HPF (0-4) Urine Bacteria Moderate /HPF (0-FEW) Glucose (Fingerstick) 144 mg/dL (70-99) 122 mg/dL (70-99) Test 07/13/19 05:20 07/13/19 05:30 07/13/19 07:27 07/13/19 09:06 Triglycerides Level 171 mg/dL (0-150) Cholesterol Level 203 mg/dL (0-200) LDL Cholesterol, Calculated 111 mg/dL (0-100) VLDL Cholesterol, Calculated 34 mg/dL (0-40) Non-HDL Cholesterol Calculated 145 mg/dL (0-129) HDL Cholesterol 58 mg/dL (40-60) Cholesterol/HDL Ratio 3.5 White Blood Count 5.8 x10^3/uL (4.0-11.0) Red Blood Count 3.78 x10^6/uL (3.50-5.40) Hemoglobin 8.5 g/dL (12.0-15.5) Hematocrit 28.1 % (36.0-47.0) Mean Corpuscular Volume 74 fL (79-100) Mean Corpuscular Hemoglobin 23 pg (25-35) Mean Corpuscular Hemoglobin Concent 30 g/dL (31-37) Red Cell Distribution Width 17.1 % (11.5-14.5) Platelet Count 173 x10^3/uL (140-400) Neutrophils (%) (Auto) 68 % (31-73) Lymphocytes (%) (Auto) 20 % (24-48) Monocytes (%) (Auto) 9 % (0-9) Eosinophils (%) (Auto) 3 % (0-3) Basophils (%) (Auto) 0 % (0-3) Neutrophils # (Auto) 4.0 x10^3/uL (1.8-7.7) Lymphocytes # (Auto) 1.1 x10^3/uL (1.0-4.8) Monocytes # (Auto) 0.5 x10^3/uL (0.0-1.1) Eosinophils # (Auto) 0.2 x10^3/uL (0.0-0.7) Basophils # (Auto) 0.0 x10^3/uL (0.0-0.2) Sodium Level 142 mmol/L (136-145) Potassium Level 3.9 mmol/L (3.5-5.1) Chloride Level 98 mmol/L (98-107) Carbon Dioxide Level 41 mmol/L (21-32) Anion Gap 3 (6-14) Blood Urea Nitrogen 21 mg/dL (7-20) Creatinine 0.8 mg/dL (0.6-1.0) Estimated GFR (Cockcroft-Gault) 67.8 Glucose Level 86 mg/dL (70-99) Calcium Level 8.5 mg/dL (8.5-10.1) Magnesium Level 1.6 mg/dL (1.8-2.4) Troponin I Quantitative < 0.017 ng/mL (0.000-0.055) Glucose (Fingerstick) 86 mg/dL (70-99) 191 mg/dL (70-99) Medications Current Medications Furosemide (Lasix) 60 mg 1X ONCE IVP Last administered on 07/12/19at 13:09; Start 07/12/19 at 13:00; Stop 07/12/19 at 13:01; Status DC Ondansetron HCl (Zofran) 4 mg PRN Q8HRS PRN IV NAUSEA/VOMITING; Start 07/12/19 at 13:45; Stop 07/13/19 at 13:44 Furosemide (Lasix) 40 mg DAILY IVP Last administered on 07/13/19 08:55; Start 07/13/19 at 09:00 Potassium Chloride (Klor-Con) 20 meq DAILYWBKFT PO Last administered on 07/13/19 08:54; Start 07/13/19 at 08:00 Enoxaparin Sodium (Lovenox 40mg Syringe) 40 mg Q24H SQ Last administered on 07/12/19 17:21; Start 07/12/19 at 17:00 Alprazolam (Xanax) 0.5 mg BID PO Last administered on 07/13/19 08:53; Start 07/12/19 at 21:00 Aspirin (Ede Aspirin) 81 mg DAILYWBKFT PO Last administered on 07/13/19 08:53; Start 07/13/19 at 08:00 Carvedilol (Coreg) 6.25 mg BIDWMEALS PO Last administered on 07/13/19 08:55; Start 07/12/19 at 17:00 Docusate Sodium (Colace) 100 mg BID PO Last administered on 07/13/19 08:54; Start 07/12/19 at 21:00 Fentanyl (Duragesic 12mcg/ Hr Patch) 1 patch Q3DAYS TD ; Start 07/15/19 at 09:00 Pregabalin (Lyrica) 50 mg BID PO Last administered on 07/13/19 08:54; Start 07/12/19 at 21:00 Pantoprazole Sodium (Protonix) 40 mg DAILYAC PO Last administered on 07/13/19 08:55; Start 07/13/19 at 07:30 Ropinirole HCl (Requip) 1 mg TID PO Last administered on 07/13/19 08:52; Start 07/12/19 at 21:00 Sertraline HCl (Zoloft) 100 mg DAILY PO Last administered on 07/13/19 08:53; Start 07/13/19 at 09:00 Zolpidem Tartrate (Ambien) 5 mg QHS PO Last administered on 07/12/19 20:24; Start 07/12/19 at 21:00 Vitamin D (Vitamin D3) 1,000 unit DAILY PO Last administered on 07/13/19 08:52; Start 07/13/19 at 09:00 Acetaminophen/ Hydrocodone Bitart (Lortab 5/325) 1 tab PRN TID PRN PO MODERATE PAIN, SEVERE PAIN Last administered on 07/12/19at 20:28; Start 07/12/19 at 15:15 Acetaminophen (Tylenol) 650 mg PRN Q6HRS PRN PO MILD PAIN / TEMP > 100.3'F; Start 07/12/19 at 15:15 Albuterol Sulfate (Ventolin Neb Soln) 2.5 mg PRN Q4HRS PRN NEB SHORTNESS OF BREATH; Start 07/12/19 at 15:15 Bisacodyl (Dulcolax Supp) 10 mg PRN DAILY PRN DC CONSTIPATION; Start 07/12/19 at 15:15 Polyethylene Glycol (miraLAX PACKET) 17 gm PRN DAILY PRN PO CONSTIPATION Last administered on 07/13/19at 08:56; Start 07/12/19 at 15:15 Amlodipine Besylate (Norvasc) 10 mg DAILY PO Last administered on 07/13/19at 08:55; Start 07/13/19 at 09:00 Multivitamins (Thera M Plus) 1 tab DAILY PO Last administered on 07/13/19at 08:55; Start 07/13/19 at 09:00 Active Scripts Active FENTANYL 12mcg/hr (Fentanyl) 1 Each Patch.td72 1 Patch TP Q3DAYS Lyrica (Pregabalin) 50 Mg Capsule 1 Cap PO BID Hydroxychloroquine Sulfate 200 Mg Tablet 200 Mg PO BID Vitamin C (Ascorbic Acid) 500 Mg Tablet 500 Mg PO DAILY Pantoprazole Sodium (Pantoprazole Sodium) 40 Mg Tablet. 40 Mg PO DAILY Sertraline Hcl 50 Mg Tablet 50 Mg PO DAILY Amlodipine Besylate 10 Mg Tablet 10 Mg PO DAILY Carvedilol (Carvedilol) 6.25 Mg Tablet 6.25 Mg PO BIDWMEALS Duoneb 0.5-3(2.5) Mg/3 Ml (Albuterol/Ipratropium) 3 Ml Ampul.neb 3 Ml NEB RTQID Hydrocodone-Apap 5-325 (Hydrocodone Bit/Acetaminophen) 1 Tab Tablet 1 Tab PO PRN Q8HRS PRN Aspirin Ec (Aspirin) 81 Mg Tablet. 81 Mg PO DAILYWBKFT Reported Duoneb 0.5-3(2.5) Mg/3 Ml (Albuterol/Ipratropium) 3 Ml Ampul.neb 3 Ml NEB PRN Q4HRS PRN Vitamin D (Cholecalciferol (Vitamin D3)) 1,000 Unit Capsule 1 Cap PO DAILY Multi-Day Vitamins (Multivitamin) 1 Each Tablet 1 Tab PO DAILY Vitals/I & O Vital Sign - Last 24 Hours 07/12/19 07/12/19 07/12/19 07/12/19 11:10 11:40 12:10 12:40 Pulse 74 74 80 70 Resp 22 20 22 18 B/P (MAP) 133/57 (82) 142/47 (78) 129/54 (79) 106/38 (60) Pulse Ox 99 100 98 98 O2 Delivery Nasal Cannula Nasal Cannula Nasal Cannula Nasal Cannula O2 Flow Rate 2.0 2.0 2.0 2.0 07/12/19 07/12/19 07/12/19 07/12/19 13:10 13:40 14:10 14:50 Temp 97.7 97.7 Pulse 72 78 82 75 Resp 18 18 18 22 B/P (MAP) 121/63 (82) 168/68 (101) 179/63 (101) 149/67 (94) Pulse Ox 98 99 97 92 O2 Delivery Nasal Cannula Nasal Cannula Nasal Cannula Nasal Cannula O2 Flow Rate 2.0 2.0 2.0 4.0 07/12/19 07/12/19 07/12/19 07/12/19 15:30 17:20 19:28 19:38 Temp 97.5 97.5 Pulse 75 63 Resp 16 B/P (MAP) 149/67 141/42 (75) Pulse Ox 93 O2 Delivery Nasal Cannula Nasal Cannula Nasal Cannula O2 Flow Rate 3.0 2.0 3.0 07/12/19 07/12/19 07/12/19 07/13/19 20:28 21:28 23:22 03:59 Temp 98.2 98.5 98.2 98.5 Pulse 66 74 Resp 20 20 16 16 B/P (MAP) 132/39 (70) 129/42 (71) Pulse Ox 91 95 95 97 O2 Delivery Nasal Cannula Nasal Cannula Nasal Cannula Nasal Cannula O2 Flow Rate 2.0 2.0 2.0 3.0 07/13/19 07/13/19 07/13/19 07/13/19 07:15 08:00 08:55 08:55 Temp 97.9 97.9 Pulse 73 73 73 Resp 18 B/P (MAP) 142/64 (90) 142/64 142/64 Pulse Ox 96 O2 Delivery Nasal Cannula Nasal Cannula O2 Flow Rate 3.0 3.0 Intake and Output 07/12/19 07/12/19 07/13/19 15:00 23:00 07:00 Intake Total 120 ml 50 ml Output Total 1200 ml 950 ml Balance -1080 ml -900 ml KARAN KIMBLE MD Jul 13, 2019 10:57
[2019-07-13] MEDS ORDERED: POTASSIUM CHLORIDE 20 MEQ TABLET.ER. PO ONE (11:00)
[2019-07-13] MEDS ORDERED: MAGNESIUM SULFATE 2GM 50 ML IV ONE (11:00)
[2019-07-13 11:30] VITALS: BP 137/67
[2019-07-13] MEDS: LACTULOSE 20 GM/30 ML SOLUTION. PO SCH ×2 (12:02→15:00)
[2019-07-13 15:22] VITALS: BP 134/63
[2019-07-13] MEDS: ENOXAPARIN 40 MG/0.4 ML SYRINGE. SQ SCH (18:07)
[2019-07-13 19:24] VITALS: BP 125/51
[2019-07-13] MEDS: ZOLPIDEM 5 MG TABLET. PO SCH (21:43)
[2019-07-13 22:30] VITALS: BP 121/52
[2019-07-14 03:59] VITALS: BP 152/61
[2019-07-14 06:02] LABS: CALCIUM 8.8 mg/dL (8.5-10.1); CREATININE 0.8 mg/dL (0.6-1.0); GFR 67.8; MAGNESIUM 1.9 mg/dL (1.8-2.4); POTASSIUM 3.9 mmol/L (3.5-5.1)
[2019-07-14 07:00] VITALS: BP 129/57
--- NOTE | 2019-07-14 07:36 | RAD ---
CHEST AP ONLY 07/14/2019 5:00 AM INDICATION: Congestive heart failure COMPARISON: 07/12/2019, 01/22/2019 TECHNIQUE: Portable frontal view of the chest is provided. FINDINGS: The cardiomediastinal silhouette is similar in appearance. There is improving aeration of the right lung base. Left chest wall cardiac device is in similar position. Trace right pleural effusion appears marginally decreased. There is improving pulmonary vascular congestion with mild residual. No pneumothorax. No suspicious osseous abnormality. IMPRESSION: Improving changes associated with congestive heart failure, as described in detail above. Electronically signed by: Brenda Granda MD (07/14/2019 7:34 AM) [facility]
[2019-07-14] MEDS: CHOLECALCIFEROL (VITAMIN D3) 1,000 UNIT TABLET PO SCH (08:59)
[2019-07-14] MEDS: POLYETHYLENE GLYCOL 3350 17 GM PACKET. PO PRN (08:59)
[2019-07-14] MEDS: MULTIVITAMIN with MINERAL TABLET. PO SCH (09:00)
[2019-07-14] MEDS: ASPIRIN 325 MG TABLET PO SCH (09:00)
[2019-07-14] MEDS: ALPRAZolam 0.5 MG TABLET PO SCH ×2 (09:00→21:56)
[2019-07-14] MEDS: amLODIPine BESYLATE 10 MG TABLET PO SCH (09:00)
[2019-07-14] MEDS: rOPINIRole 1 MG TABLET. PO SCH ×3 (09:01→21:56)
[2019-07-14] MEDS: PREGABALIN 50 MG CAPSULE PO SCH ×2 (09:01→21:57)
[2019-07-14] MEDS: PANTOPRAZOLE 40 MG TABLET.DR. PO SCH (09:01)
[2019-07-14] MEDS: SERTRALINE 50 MG TABLET. PO SCH (09:01)
[2019-07-14] MEDS: DOCUSATE SODIUM 100 MG CAPSULE. PO SCH ×2 (09:01→21:57)
[2019-07-14] MEDS: CARVEDILOL 6.25 MG TABLET. PO SCH ×2 (09:01→17:46)
[2019-07-14] MEDS: POTASSIUM CHLORIDE 20 MEQ TABLET.ER. PO SCH (09:02)
[2019-07-14] MEDS: FUROSEMIDE 40 MG/4 ML VIAL. IVP SCH (09:02)
--- NOTE | 2019-07-14 10:31 | PDOC ---
PULMONARY PROGRESS NOTES Subjective Feeling better today, reports improvement in her SOB Denies Cough or CP Vitals Vital Signs Date Time Temp Pulse Resp B/P (MAP) Pulse Ox O2 Delivery O2 Flow Rate FiO2 07/14/19 09:01 68 129/57 07/14/19 08:00 Nasal Cannula 3.0 07/14/19 07:00 98.3 16 98 98.3 ROS: No Nausea, No Chest Pain, No Abdominal Pain, No Increase Cough General: Alert Lungs: Clear Cardiovascular: S1, S2 Abdomen: Soft, Non-tender Neuro Exam: Alert, Oriented Extremities: No Edema Labs Laboratory Tests Test 07/12/19 11:28 07/12/19 12:13 07/12/19 16:49 07/12/19 20:33 White Blood Count 6.4 x10^3/uL (4.0-11.0) Red Blood Count 3.89 x10^6/uL (3.50-5.40) Hemoglobin 8.9 g/dL (12.0-15.5) Hematocrit 29.1 % (36.0-47.0) Mean Corpuscular Volume 75 fL (79-100) Mean Corpuscular Hemoglobin 23 pg (25-35) Mean Corpuscular Hemoglobin Concent 31 g/dL (31-37) Red Cell Distribution Width 17.1 % (11.5-14.5) Platelet Count 169 x10^3/uL (140-400) Neutrophils (%) (Auto) 80 % (31-73) Lymphocytes (%) (Auto) 12 % (24-48) Monocytes (%) (Auto) 5 % (0-9) Eosinophils (%) (Auto) 3 % (0-3) Basophils (%) (Auto) 0 % (0-3) Neutrophils # (Auto) 5.2 x10^3/uL (1.8-7.7) Lymphocytes # (Auto) 0.8 x10^3/uL (1.0-4.8) Monocytes # (Auto) 0.3 x10^3/uL (0.0-1.1) Eosinophils # (Auto) 0.2 x10^3/uL (0.0-0.7) Basophils # (Auto) 0.0 x10^3/uL (0.0-0.2) Platelet Estimate Adequate (ADEQUATE) Hypochromasia Slight Anisocytosis Slight Microcytosis Slight Prothrombin Time 13.2 SEC (11.7-14.0) Prothromb Time International Ratio 1.0 (0.8-1.1) Sodium Level 141 mmol/L (136-145) Potassium Level 4.3 mmol/L (3.5-5.1) Chloride Level 101 mmol/L (98-107) Carbon Dioxide Level 37 mmol/L (21-32) Anion Gap 3 (6-14) Blood Urea Nitrogen 22 mg/dL (7-20) Creatinine 0.8 mg/dL (0.6-1.0) Estimated GFR (Cockcroft-Gault) 67.8 BUN/Creatinine Ratio 28 (6-20) Glucose Level 135 mg/dL (70-99) Calcium Level 8.4 mg/dL (8.5-10.1) Magnesium Level 1.8 mg/dL (1.8-2.4) Total Bilirubin 0.2 mg/dL (0.2-1.0) Aspartate Amino Transf (AST/SGOT) 24 U/L (15-37) Alanine Aminotransferase (ALT/SGPT) 16 U/L (14-59) Alkaline Phosphatase 85 U/L (46-116) Troponin I Quantitative < 0.017 ng/mL (0.000-0.055) QD-Csw-A-Type Natriuretic Peptide 929 pg/mL (0-449) Total Protein 6.8 g/dL (6.4-8.2) Albumin 3.1 g/dL (3.4-5.0) Albumin/Globulin Ratio 0.8 (1.0-1.7) Urine Collection Type Unknown Urine Color Yellow Urine Clarity Clear Urine pH 7.0 (<5.0-8.0) Urine Specific [place] 1.015 (1.000-1.030) Urine Protein Negative mg/dL (NEG-TRACE) Urine Glucose (UA) Negative mg/dL (NEG) Urine Ketones (Stick) Negative mg/dL (NEG) Urine Blood Negative (NEG) Urine Nitrite Negative (NEG) Urine Bilirubin Negative (NEG) Urine Urobilinogen Dipstick 0.2 mg/dL (0.2 mg/dL) Urine Leukocyte Esterase Trace (NEG) Urine RBC 0 /HPF (0-2) Urine WBC 1-4 /HPF (0-4) Urine Bacteria Moderate /HPF (0-FEW) Glucose (Fingerstick) 144 mg/dL (70-99) 122 mg/dL (70-99) Test 07/13/19 05:20 07/13/19 05:30 07/13/19 07:27 07/13/19 09:06 Triglycerides Level 171 mg/dL (0-150) Cholesterol Level 203 mg/dL (0-200) LDL Cholesterol, Calculated 111 mg/dL (0-100) VLDL Cholesterol, Calculated 34 mg/dL (0-40) Non-HDL Cholesterol Calculated 145 mg/dL (0-129) HDL Cholesterol 58 mg/dL (40-60) Cholesterol/HDL Ratio 3.5 White Blood Count 5.8 x10^3/uL (4.0-11.0) Red Blood Count 3.78 x10^6/uL (3.50-5.40) Hemoglobin 8.5 g/dL (12.0-15.5) Hematocrit 28.1 % (36.0-47.0) Mean Corpuscular Volume 74 fL (79-100) Mean Corpuscular Hemoglobin 23 pg (25-35) Mean Corpuscular Hemoglobin Concent 30 g/dL (31-37) Red Cell Distribution Width 17.1 % (11.5-14.5) Platelet Count 173 x10^3/uL (140-400) Neutrophils (%) (Auto) 68 % (31-73) Lymphocytes (%) (Auto) 20 % (24-48) Monocytes (%) (Auto) 9 % (0-9) Eosinophils (%) (Auto) 3 % (0-3) Basophils (%) (Auto) 0 % (0-3) Neutrophils # (Auto) 4.0 x10^3/uL (1.8-7.7) Lymphocytes # (Auto) 1.1 x10^3/uL (1.0-4.8) Monocytes # (Auto) 0.5 x10^3/uL (0.0-1.1) Eosinophils # (Auto) 0.2 x10^3/uL (0.0-0.7) Basophils # (Auto) 0.0 x10^3/uL (0.0-0.2) Sodium Level 142 mmol/L (136-145) Potassium Level 3.9 mmol/L (3.5-5.1) Chloride Level 98 mmol/L (98-107) Carbon Dioxide Level 41 mmol/L (21-32) Anion Gap 3 (6-14) Blood Urea Nitrogen 21 mg/dL (7-20) Creatinine 0.8 mg/dL (0.6-1.0) Estimated GFR (Cockcroft-Gault) 67.8 Glucose Level 86 mg/dL (70-99) Calcium Level 8.5 mg/dL (8.5-10.1) Magnesium Level 1.6 mg/dL (1.8-2.4) Troponin I Quantitative < 0.017 ng/mL (0.000-0.055) Glucose (Fingerstick) 86 mg/dL (70-99) 191 mg/dL (70-99) Test 07/13/19 12:06 07/13/19 17:11 07/13/19 20:43 07/14/19 05:00 Glucose (Fingerstick) 113 mg/dL (70-99) 153 mg/dL (70-99) 135 mg/dL (70-99) Sodium Level 141 mmol/L (136-145) Potassium Level 3.9 mmol/L (3.5-5.1) Chloride Level 98 mmol/L (98-107) Carbon Dioxide Level 41 mmol/L (21-32) Anion Gap 2 (6-14) Blood Urea Nitrogen 19 mg/dL (7-20) Creatinine 0.8 mg/dL (0.6-1.0) Estimated GFR (Cockcroft-Gault) 67.8 Glucose Level 90 mg/dL (70-99) Calcium Level 8.8 mg/dL (8.5-10.1) Magnesium Level 1.9 mg/dL (1.8-2.4) Test 07/14/19 07:08 Glucose (Fingerstick) 98 mg/dL (70-99) Laboratory Tests Test 07/13/19 12:06 07/13/19 17:11 07/13/19 20:43 07/14/19 05:00 Glucose (Fingerstick) 113 mg/dL (70-99) 153 mg/dL (70-99) 135 mg/dL (70-99) Sodium Level 141 mmol/L (136-145) Potassium Level 3.9 mmol/L (3.5-5.1) Chloride Level 98 mmol/L (98-107) Carbon Dioxide Level 41 mmol/L (21-32) Anion Gap 2 (6-14) Blood Urea Nitrogen 19 mg/dL (7-20) Creatinine 0.8 mg/dL (0.6-1.0) Estimated GFR (Cockcroft-Gault) 67.8 Glucose Level 90 mg/dL (70-99) Calcium Level 8.8 mg/dL (8.5-10.1) Magnesium Level 1.9 mg/dL (1.8-2.4) Test 07/14/19 07:08 Glucose (Fingerstick) 98 mg/dL (70-99) Medications Active Scripts Medications Dose Route/Sig Max Daily Dose Days Date Category FENTANYL 12mcg/hr (Fentanyl) 1 Each Patch.td72 1 Patch TP Q3DAYS 01/23/19 Rx Lyrica (Pregabalin) 50 Mg Capsule 1 Cap PO BID 01/23/19 Rx Hydroxychloroquine Sulfate 200 Mg Tablet 200 Mg PO BID 01/13/19 Rx Vitamin C (Ascorbic Acid) 500 Mg Tablet 500 Mg PO DAILY 01/13/19 Rx Pantoprazole Sodium (Pantoprazole Sodium) 40 Mg Tablet. 40 Mg PO DAILY 01/13/19 Rx Sertraline Hcl 50 Mg Tablet 50 Mg PO DAILY 01/13/19 Rx Amlodipine Besylate 10 Mg Tablet 10 Mg PO DAILY 01/13/19 Rx Carvedilol (Carvedilol) 6.25 Mg Tablet 6.25 Mg PO BIDWMEALS 01/13/19 Rx Duoneb 0.5-3(2.5) Mg/3 Ml (Albuterol/Ipratropium) 3 Ml Ampul.neb 3 Ml NEB RTQID 01/13/19 Rx Hydrocodone-Apap 5-325 (Hydrocodone Bit/Acetaminophen) 1 Tab Tablet 1 Tab PO PRN Q8HRS PRN 01/13/19 Rx Aspirin Ec (Aspirin) 81 Mg Tablet. 81 Mg PO DAILYWBKFT 06/07/18 Rx Duoneb 0.5-3(2.5) Mg/3 Ml (Albuterol/Ipratropium) 3 Ml Ampul.neb 3 Ml NEB PRN Q4HRS PRN 03/13/18 Reported Vitamin D (Cholecalciferol (Vitamin D3)) 1,000 Unit Capsule 1 Cap PO DAILY 06/24/17 Reported Multi-Day Vitamins (Multivitamin) 1 Each Tablet 1 Tab PO DAILY 01/18/16 Reported Comments CXR 07/14/2019 IMPRESSION: Improving changes associated with congestive heart failure, as described in detail above. Impression . IMPRESSION: 1. Acute on chronic respiratory failure secondary to development of congestive heart failure. 2. The patient with history of chronic diastolic heart failure and moderate mitral stenosis, likely contributing factor to congestive heart failure. 3. Abnormal chest x-ray with bilateral interstitial and alveolar infiltrates and elevated right hemidiaphragm consistent with congestive heart failure. 4. No significant history of tobacco use. 5. 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 >100,000 CFU/ML FINAL ID= [STAPHYLOCOCCUS EPIDERMIDIS] Plan . RECOMMENDATIONS: Supplemental oxygen to keep sats above 92%, now on 3 liters N/C CXR reviewed with repeat CXR in am, If the chest x-ray does not improve, then we will consider noncontrast CT chest. Follow Cardiology recommendations for diuresis monitor electrolytes DVT prophylaxis with Lovenox: protonix/lovenox Discussed with YONI LEARY MD Jul 14, 2019 10:31
--- NOTE | 2019-07-14 10:52 | PDOC ---
PROGRESS NOTES Subjective Subjective feels better. not short of breath . good diuresis. lab reviewed. she had a BM. cxr improved Objective Objective Vital Signs Date Time Temp Pulse Resp B/P (MAP) Pulse Ox O2 Delivery O2 Flow Rate FiO2 07/14/19 09:01 68 129/57 07/14/19 08:00 Nasal Cannula 3.0 07/14/19 07:00 98.3 16 98 98.3 Intake and Output 07/14/19 07:00 Intake Total 100 ml Output Total 1625 ml Balance -1525 ml Intake Oral 100 ml Output Urine Total 1625 ml # Bowel Movements 1 Physical Exam Abdomen: Soft Heart: Regular rate, Normal S1, Normal S2 Extremities: No edema General: Alert HEENT: Atraumatic Lungs: Other (decreased breath sounds bilaterally) Neuro: Normal speech Psych/Mental Status: Mental status NL Skin: No rashes Assessment Assessment 1. Acute on chronic diastolic congestive heart failure. improving 2. Acute on chronic hypoxic respiratory failure. 3. Mitral stenosis. 4. Moderate pulmonary hypertension. 5. Diabetes mellitus type 2 with peripheral neuropathy, treated with diet. 6. Hypertension. 7. Hyperlipidemia with statin intolerance. 8. Anemia of chronic disease. 9. Chronic obstructive pulmonary disease. 10. Nonobstructive coronary artery disease. 11. Fibromyalgia. 12. Chronic pain. hypomagnesemia treated Plan Plan of Care continue iv lasix and kcl continue oxygen lab tomorrow echocardiogram just done Comment Review of Relevant I have reviewed the following items lizbeth (where applicable) has been applied. Labs Laboratory Tests Test 07/12/19 11:28 07/12/19 12:13 07/12/19 16:49 07/12/19 20:33 White Blood Count 6.4 x10^3/uL (4.0-11.0) Red Blood Count 3.89 x10^6/uL (3.50-5.40) Hemoglobin 8.9 g/dL (12.0-15.5) Hematocrit 29.1 % (36.0-47.0) Mean Corpuscular Volume 75 fL (79-100) Mean Corpuscular Hemoglobin 23 pg (25-35) Mean Corpuscular Hemoglobin Concent 31 g/dL (31-37) Red Cell Distribution Width 17.1 % (11.5-14.5) Platelet Count 169 x10^3/uL (140-400) Neutrophils (%) (Auto) 80 % (31-73) Lymphocytes (%) (Auto) 12 % (24-48) Monocytes (%) (Auto) 5 % (0-9) Eosinophils (%) (Auto) 3 % (0-3) Basophils (%) (Auto) 0 % (0-3) Neutrophils # (Auto) 5.2 x10^3/uL (1.8-7.7) Lymphocytes # (Auto) 0.8 x10^3/uL (1.0-4.8) Monocytes # (Auto) 0.3 x10^3/uL (0.0-1.1) Eosinophils # (Auto) 0.2 x10^3/uL (0.0-0.7) Basophils # (Auto) 0.0 x10^3/uL (0.0-0.2) Platelet Estimate Adequate (ADEQUATE) Hypochromasia Slight Anisocytosis Slight Microcytosis Slight Prothrombin Time 13.2 SEC (11.7-14.0) Prothromb Time International Ratio 1.0 (0.8-1.1) Sodium Level 141 mmol/L (136-145) Potassium Level 4.3 mmol/L (3.5-5.1) Chloride Level 101 mmol/L (98-107) Carbon Dioxide Level 37 mmol/L (21-32) Anion Gap 3 (6-14) Blood Urea Nitrogen 22 mg/dL (7-20) Creatinine 0.8 mg/dL (0.6-1.0) Estimated GFR (Cockcroft-Gault) 67.8 BUN/Creatinine Ratio 28 (6-20) Glucose Level 135 mg/dL (70-99) Calcium Level 8.4 mg/dL (8.5-10.1) Magnesium Level 1.8 mg/dL (1.8-2.4) Total Bilirubin 0.2 mg/dL (0.2-1.0) Aspartate Amino Transf (AST/SGOT) 24 U/L (15-37) Alanine Aminotransferase (ALT/SGPT) 16 U/L (14-59) Alkaline Phosphatase 85 U/L (46-116) Troponin I Quantitative < 0.017 ng/mL (0.000-0.055) CU-Xsw-L-Type Natriuretic Peptide 929 pg/mL (0-449) Total Protein 6.8 g/dL (6.4-8.2) Albumin 3.1 g/dL (3.4-5.0) Albumin/Globulin Ratio 0.8 (1.0-1.7) Urine Collection Type Unknown Urine Color Yellow Urine Clarity Clear Urine pH 7.0 (<5.0-8.0) Urine Specific [place] 1.015 (1.000-1.030) Urine Protein Negative mg/dL (NEG-TRACE) Urine Glucose (UA) Negative mg/dL (NEG) Urine Ketones (Stick) Negative mg/dL (NEG) Urine Blood Negative (NEG) Urine Nitrite Negative (NEG) Urine Bilirubin Negative (NEG) Urine Urobilinogen Dipstick 0.2 mg/dL (0.2 mg/dL) Urine Leukocyte Esterase Trace (NEG) Urine RBC 0 /HPF (0-2) Urine WBC 1-4 /HPF (0-4) Urine Bacteria Moderate /HPF (0-FEW) Glucose (Fingerstick) 144 mg/dL (70-99) 122 mg/dL (70-99) Test 07/13/19 05:20 07/13/19 05:30 07/13/19 07:27 07/13/19 09:06 Triglycerides Level 171 mg/dL (0-150) Cholesterol Level 203 mg/dL (0-200) LDL Cholesterol, Calculated 111 mg/dL (0-100) VLDL Cholesterol, Calculated 34 mg/dL (0-40) Non-HDL Cholesterol Calculated 145 mg/dL (0-129) HDL Cholesterol 58 mg/dL (40-60) Cholesterol/HDL Ratio 3.5 White Blood Count 5.8 x10^3/uL (4.0-11.0) Red Blood Count 3.78 x10^6/uL (3.50-5.40) Hemoglobin 8.5 g/dL (12.0-15.5) Hematocrit 28.1 % (36.0-47.0) Mean Corpuscular Volume 74 fL (79-100) Mean Corpuscular Hemoglobin 23 pg (25-35) Mean Corpuscular Hemoglobin Concent 30 g/dL (31-37) Red Cell Distribution Width 17.1 % (11.5-14.5) Platelet Count 173 x10^3/uL (140-400) Neutrophils (%) (Auto) 68 % (31-73) Lymphocytes (%) (Auto) 20 % (24-48) Monocytes (%) (Auto) 9 % (0-9) Eosinophils (%) (Auto) 3 % (0-3) Basophils (%) (Auto) 0 % (0-3) Neutrophils # (Auto) 4.0 x10^3/uL (1.8-7.7) Lymphocytes # (Auto) 1.1 x10^3/uL (1.0-4.8) Monocytes # (Auto) 0.5 x10^3/uL (0.0-1.1) Eosinophils # (Auto) 0.2 x10^3/uL (0.0-0.7) Basophils # (Auto) 0.0 x10^3/uL (0.0-0.2) Sodium Level 142 mmol/L (136-145) Potassium Level 3.9 mmol/L (3.5-5.1) Chloride Level 98 mmol/L (98-107) Carbon Dioxide Level 41 mmol/L (21-32) Anion Gap 3 (6-14) Blood Urea Nitrogen 21 mg/dL (7-20) Creatinine 0.8 mg/dL (0.6-1.0) Estimated GFR (Cockcroft-Gault) 67.8 Glucose Level 86 mg/dL (70-99) Calcium Level 8.5 mg/dL (8.5-10.1) Magnesium Level 1.6 mg/dL (1.8-2.4) Troponin I Quantitative < 0.017 ng/mL (0.000-0.055) Glucose (Fingerstick) 86 mg/dL (70-99) 191 mg/dL (70-99) Test 07/13/19 12:06 07/13/19 17:11 07/13/19 20:43 07/14/19 05:00 Glucose (Fingerstick) 113 mg/dL (70-99) 153 mg/dL (70-99) 135 mg/dL (70-99) Sodium Level 141 mmol/L (136-145) Potassium Level 3.9 mmol/L (3.5-5.1) Chloride Level 98 mmol/L (98-107) Carbon Dioxide Level 41 mmol/L (21-32) Anion Gap 2 (6-14) Blood Urea Nitrogen 19 mg/dL (7-20) Creatinine 0.8 mg/dL (0.6-1.0) Estimated GFR (Cockcroft-Gault) 67.8 Glucose Level 90 mg/dL (70-99) Calcium Level 8.8 mg/dL (8.5-10.1) Magnesium Level 1.9 mg/dL (1.8-2.4) Test 07/14/19 07:08 Glucose (Fingerstick) 98 mg/dL (70-99) Laboratory Tests Test 07/13/19 12:06 07/13/19 17:11 07/13/19 20:43 07/14/19 05:00 Glucose (Fingerstick) 113 mg/dL (70-99) 153 mg/dL (70-99) 135 mg/dL (70-99) Sodium Level 141 mmol/L (136-145) Potassium Level 3.9 mmol/L (3.5-5.1) Chloride Level 98 mmol/L (98-107) Carbon Dioxide Level 41 mmol/L (21-32) Anion Gap 2 (6-14) Blood Urea Nitrogen 19 mg/dL (7-20) Creatinine 0.8 mg/dL (0.6-1.0) Estimated GFR (Cockcroft-Gault) 67.8 Glucose Level 90 mg/dL (70-99) Calcium Level 8.8 mg/dL (8.5-10.1) Magnesium Level 1.9 mg/dL (1.8-2.4) Test 07/14/19 07:08 Glucose (Fingerstick) 98 mg/dL (70-99) Microbiology 07/12/19 Urine Culture - Preliminary, Resulted Medications Current Medications Furosemide (Lasix) 60 mg 1X ONCE IVP Last administered on 07/12/19at 13:09; Start 07/12/19 at 13:00; Stop 07/12/19 at 13:01; Status DC Ondansetron HCl (Zofran) 4 mg PRN Q8HRS PRN IV NAUSEA/VOMITING; Start 07/12/19 at 13:45; Stop 07/13/19 at 13:44; Status DC Furosemide (Lasix) 40 mg DAILY IVP Last administered on 07/14/19at 09:02; Start 07/13/19 at 09:00 Potassium Chloride (Klor-Con) 20 meq DAILYWBKFT PO Last administered on 07/14/19at 09:02; Start 07/13/19 at 08:00 Enoxaparin Sodium (Lovenox 40mg Syringe) 40 mg Q24H SQ Last administered on 07/13/19 18:07; Start 07/12/19 at 17:00 Alprazolam (Xanax) 0.5 mg BID PO Last administered on 07/14/19 09:00; Start 07/12/19 at 21:00 Aspirin (Ede Aspirin) 81 mg DAILYWBKFT PO Last administered on 07/14/19 09:00; Start 07/13/19 at 08:00 Carvedilol (Coreg) 6.25 mg BIDWMEALS PO Last administered on 07/14/19 09:01; Start 07/12/19 at 17:00 Docusate Sodium (Colace) 100 mg BID PO Last administered on 07/14/19 09:01; Start 07/12/19 at 21:00 Fentanyl (Duragesic 12mcg/ Hr Patch) 1 patch Q3DAYS TD ; Start 07/15/19 at 09:00 Pregabalin (Lyrica) 50 mg BID PO Last administered on 07/14/19 09:01; Start 07/12/19 at 21:00 Pantoprazole Sodium (Protonix) 40 mg DAILYAC PO Last administered on 07/14/19 09:01; Start 07/13/19 at 07:30 Ropinirole HCl (Requip) 1 mg TID PO Last administered on 07/14/19 09:01; Start 07/12/19 at 21:00 Sertraline HCl (Zoloft) 100 mg DAILY PO Last administered on 07/14/19 09:01; Start 07/13/19 at 09:00 Zolpidem Tartrate (Ambien) 5 mg QHS PO Last administered on 07/13/19 21:43; Start 07/12/19 at 21:00 Vitamin D (Vitamin D3) 1,000 unit DAILY PO Last administered on 07/14/19 08:59; Start 07/13/19 at 09:00 Acetaminophen/ Hydrocodone Bitart (Lortab 5/325) 1 tab PRN TID PRN PO MODERATE PAIN, SEVERE PAIN Last administered on 07/12/19 20:28; Start 07/12/19 at 15:15 Acetaminophen (Tylenol) 650 mg PRN Q6HRS PRN PO MILD PAIN / TEMP > 100.3'F; Start 07/12/19 at 15:15 Albuterol Sulfate (Ventolin Neb Soln) 2.5 mg PRN Q4HRS PRN NEB SHORTNESS OF BREATH; Start 07/12/19 at 15:15 Bisacodyl (Dulcolax Supp) 10 mg PRN DAILY PRN [place] CONSTIPATION; Start 07/12/19 at 15:15 Polyethylene Glycol (miraLAX PACKET) 17 gm PRN DAILY PRN PO CONSTIPATION Last administered on 07/14/19at 08:59; Start 07/12/19 at 15:15 Amlodipine Besylate (Norvasc) 10 mg DAILY PO Last administered on 07/14/19at 09:00; Start 07/13/19 at 09:00 Multivitamins (Thera M Plus) 1 tab DAILY PO Last administered on 07/14/19at 09:00; Start 07/13/19 at 09:00 Magnesium Sulfate 50 ml @ 25 mls/hr 1X ONCE IV Last administered on 07/13/19at 12:02; Start 07/13/19 at 11:00; Stop 07/13/19 at 12:59; Status DC Lactulose (Lactulose) 20 gm Q2H PO Last administered on 07/13/19at 12:02; Start 07/13/19 at 13:00; Stop 07/13/19 at 15:01; Status DC Potassium Chloride (Klor-Con) 20 meq 1X ONCE PO Last administered on 07/13/19at 12:01; Start 07/13/19 at 11:00; Stop 07/13/19 at 11:01; Status DC Active Scripts Active FENTANYL 12mcg/hr (Fentanyl) 1 Each Patch.td72 1 Patch TP Q3DAYS Lyrica (Pregabalin) 50 Mg Capsule 1 Cap PO BID Hydroxychloroquine Sulfate 200 Mg Tablet 200 Mg PO BID Vitamin C (Ascorbic Acid) 500 Mg Tablet 500 Mg PO DAILY Pantoprazole Sodium (Pantoprazole Sodium) 40 Mg Tablet.dr 40 Mg PO DAILY Sertraline Hcl 50 Mg Tablet 50 Mg PO DAILY Amlodipine Besylate 10 Mg Tablet 10 Mg PO DAILY Carvedilol (Carvedilol) 6.25 Mg Tablet 6.25 Mg PO BIDWMEALS Duoneb 0.5-3(2.5) Mg/3 Ml (Albuterol/Ipratropium) 3 Ml Ampul.neb 3 Ml NEB RTQID Hydrocodone-Apap 5-325 (Hydrocodone Bit/Acetaminophen) 1 Tab Tablet 1 Tab PO PRN Q8HRS PRN Aspirin Ec (Aspirin) 81 Mg Tablet.dr 81 Mg PO DAILYWBKFT Reported Duoneb 0.5-3(2.5) Mg/3 Ml (Albuterol/Ipratropium) 3 Ml Ampul.neb 3 Ml NEB PRN Q4HRS PRN Vitamin D (Cholecalciferol (Vitamin D3)) 1,000 Unit Capsule 1 Cap PO DAILY Multi-Day Vitamins (Multivitamin) 1 Each Tablet 1 Tab PO DAILY Vitals/I & O Vital Sign - Last 24 Hours 07/13/19 07/13/19 07/13/19 07/13/19 11:30 15:22 18:06 19:24 Temp 98.5 98.3 98.4 98.5 98.3 98.4 Pulse 71 70 70 73 Resp 18 16 16 B/P (MAP) 137/67 (90) 134/63 (86) 134/63 125/51 (75) Pulse Ox 93 97 96 O2 Delivery Nasal Cannula Nasal Cannula Nasal Cannula O2 Flow Rate 3.0 3.0 3.0 07/13/19 07/13/19 07/14/19 07/14/19 20:00 22:30 03:59 07:00 Temp 98.4 97.9 98.3 98.4 97.9 98.3 Pulse 68 75 68 Resp 16 16 16 B/P (MAP) 121/52 (75) 152/61 (91) 129/57 (81) Pulse Ox 93 98 98 O2 Delivery Nasal Cannula Nasal Cannula Nasal Cannula Nasal Cannula O2 Flow Rate 3.0 3.0 3.0 3.0 07/14/19 07/14/19 07/14/19 08:00 09:00 09:01 Pulse 68 68 B/P (MAP) 129/57 129/57 O2 Delivery Nasal Cannula O2 Flow Rate 3.0 Intake and Output 07/13/19 07/13/19 07/14/19 15:00 23:00 07:00 Intake Total 100 ml Output Total 950 ml 675 ml Balance -950 ml -575 ml KARAN KIMBLE MD 7, 2020 10:52
[2019-07-14 11:00] VITALS: BP 141/62
--- NOTE | 2019-07-14 14:48 | PDOC ---
PROGRESS NOTES Subjective Subjective Patient seen and evaluated Objective Objective Vital Signs Date Time Temp Pulse Resp B/P (MAP) Pulse Ox O2 Delivery O2 Flow Rate FiO2 07/14/19 11:00 98.2 66 18 141/62 (88) 94 Nasal Cannula 3.0 98.2 Intake and Output0 07/14/19 07:00 Intake Total 100 ml Output Total 1625 ml Balance -1525 ml Intake Oral 100 ml Output Urine Total 1625 ml # Bowel Movements 1 Physical Exam Abdomen: Normal bowel sounds Heart: Regular rate General: mild distress Lungs: Other (Mildly decreased breath sounds) Assessment Assessment Acute on chronic diastolic CHF. Continues to improve on present medications. Echo pending. CAD: moderate lesion to RCA 01/2019 [facility] Moderate mitral stenosis COPD. Continue present medications. Followed by pulmonary. HTN: Improved. HLP PPM with SSS: [facility] Comment Review of Relevant I have reviewed the following items lizbeth (where applicable) has been applied. Labs Laboratory Tests Test 07/12/19 16:49 07/12/19 20:33 07/13/19 05:20 07/13/19 05:30 Glucose (Fingerstick) 144 mg/dL (70-99) 122 mg/dL (70-99) Triglycerides Level 171 mg/dL (0-150) Cholesterol Level 203 mg/dL (0-200) LDL Cholesterol, Calculated 111 mg/dL (0-100) VLDL Cholesterol, Calculated 34 mg/dL (0-40) Non-HDL Cholesterol Calculated 145 mg/dL (0-129) HDL Cholesterol 58 mg/dL (40-60) Cholesterol/HDL Ratio 3.5 White Blood Count 5.8 x10^3/uL (4.0-11.0) Red Blood Count 3.78 x10^6/uL (3.50-5.40) Hemoglobin 8.5 g/dL (12.0-15.5) Hematocrit 28.1 % (36.0-47.0) Mean Corpuscular Volume 74 fL (79-100) Mean Corpuscular Hemoglobin 23 pg (25-35) Mean Corpuscular Hemoglobin Concent 30 g/dL (31-37) Red Cell Distribution Width 17.1 % (11.5-14.5) Platelet Count 173 x10^3/uL (140-400) Neutrophils (%) (Auto) 68 % (31-73) Lymphocytes (%) (Auto) 20 % (24-48) Monocytes (%) (Auto) 9 % (0-9) Eosinophils (%) (Auto) 3 % (0-3) Basophils (%) (Auto) 0 % (0-3) Neutrophils # (Auto) 4.0 x10^3/uL (1.8-7.7) Lymphocytes # (Auto) 1.1 x10^3/uL (1.0-4.8) Monocytes # (Auto) 0.5 x10^3/uL (0.0-1.1) Eosinophils # (Auto) 0.2 x10^3/uL (0.0-0.7) Basophils # (Auto) 0.0 x10^3/uL (0.0-0.2) Sodium Level 142 mmol/L (136-145) Potassium Level 3.9 mmol/L (3.5-5.1) Chloride Level 98 mmol/L (98-107) Carbon Dioxide Level 41 mmol/L (21-32) Anion Gap 3 (6-14) Blood Urea Nitrogen 21 mg/dL (7-20) Creatinine 0.8 mg/dL (0.6-1.0) Estimated GFR (Cockcroft-Gault) 67.8 Glucose Level 86 mg/dL (70-99) Calcium Level 8.5 mg/dL (8.5-10.1) Magnesium Level 1.6 mg/dL (1.8-2.4) Troponin I Quantitative < 0.017 ng/mL (0.000-0.055) Test 07/13/19 07:27 07/13/19 09:06 07/13/19 12:06 07/13/19 17:11 Glucose (Fingerstick) 86 mg/dL (70-99) 191 mg/dL (70-99) 113 mg/dL (70-99) 153 mg/dL (70-99) Test 07/13/19 20:43 07/14/19 05:00 07/14/19 07:08 07/14/19 12:36 Glucose (Fingerstick) 135 mg/dL (70-99) 98 mg/dL (70-99) 113 mg/dL (70-99) Sodium Level 141 mmol/L (136-145) Potassium Level 3.9 mmol/L (3.5-5.1) Chloride Level 98 mmol/L (98-107) Carbon Dioxide Level 41 mmol/L (21-32) Anion Gap 2 (6-14) Blood Urea Nitrogen 19 mg/dL (7-20) Creatinine 0.8 mg/dL (0.6-1.0) Estimated GFR (Cockcroft-Gault) 67.8 Glucose Level 90 mg/dL (70-99) Calcium Level 8.8 mg/dL (8.5-10.1) Magnesium Level 1.9 mg/dL (1.8-2.4) Laboratory Tests Test 07/13/19 17:11 07/13/19 20:43 07/14/19 05:00 07/14/19 07:08 Glucose (Fingerstick) 153 mg/dL (70-99) 135 mg/dL (70-99) 98 mg/dL (70-99) Sodium Level 141 mmol/L (136-145) Potassium Level 3.9 mmol/L (3.5-5.1) Chloride Level 98 mmol/L (98-107) Carbon Dioxide Level 41 mmol/L (21-32) Anion Gap 2 (6-14) Blood Urea Nitrogen 19 mg/dL (7-20) Creatinine 0.8 mg/dL (0.6-1.0) Estimated GFR (Cockcroft-Gault) 67.8 Glucose Level 90 mg/dL (70-99) Calcium Level 8.8 mg/dL (8.5-10.1) Magnesium Level 1.9 mg/dL (1.8-2.4) Test 07/14/19 12:36 Glucose (Fingerstick) 113 mg/dL (70-99) Microbiology 07/12/19 Urine Culture - Preliminary, Resulted Medications Current Medications Furosemide (Lasix) 60 mg 1X ONCE IVP Last administered on 07/12/19at 13:09; Start 07/12/19 at 13:00; Stop 07/12/19 at 13:01; Status DC Ondansetron HCl (Zofran) 4 mg PRN Q8HRS PRN IV NAUSEA/VOMITING; Start 07/12/19 at 13:45; Stop 07/13/19 at 13:44; Status DC Furosemide (Lasix) 40 mg DAILY IVP Last administered on 07/14/19at 09:02; Start 07/13/19 at 09:00 Potassium Chloride (Klor-Con) 20 meq DAILYWBKFT PO Last administered on 07/14/19 09:02; Start 07/13/19 at 08:00 Enoxaparin Sodium (Lovenox 40mg Syringe) 40 mg Q24H SQ Last administered on 07/13/19 18:07; Start 07/12/19 at 17:00 Alprazolam (Xanax) 0.5 mg BID PO Last administered on 07/14/19 09:00; Start 07/12/19 at 21:00 Aspirin (Ede Aspirin) 81 mg DAILYWBKFT PO Last administered on 07/14/19 09:00; Start 07/13/19 at 08:00 Carvedilol (Coreg) 6.25 mg BIDWMEALS PO Last administered on 07/14/19 09:01; Start 07/12/19 at 17:00 Docusate Sodium (Colace) 100 mg BID PO Last administered on 07/14/19 09:01; Start 07/12/19 at 21:00 Fentanyl (Duragesic 12mcg/ Hr Patch) 1 patch Q3DAYS TD ; Start 07/15/19 at 09:00 Pregabalin (Lyrica) 50 mg BID PO Last administered on 07/14/19 09:01; Start 07/12/19 at 21:00 Pantoprazole Sodium (Protonix) 40 mg DAILYAC PO Last administered on 07/14/19 09:01; Start 07/13/19 at 07:30 Ropinirole HCl (Requip) 1 mg TID PO Last administered on 07/14/19 09:01; Start 07/12/19 at 21:00 Sertraline HCl (Zoloft) 100 mg DAILY PO Last administered on 07/14/19 09:01; Start 07/13/19 at 09:00 Zolpidem Tartrate (Ambien) 5 mg QHS PO Last administered on 07/13/19 21:43; Start 07/12/19 at 21:00 Vitamin D (Vitamin D3) 1,000 unit DAILY PO Last administered on 07/14/19 08:59; Start 07/13/19 at 09:00 Acetaminophen/ Hydrocodone Bitart (Lortab 5/325) 1 tab PRN TID PRN PO MODERATE PAIN, SEVERE PAIN Last administered on 07/12/19at 20:28; Start 07/12/19 at 15:15 Acetaminophen (Tylenol) 650 mg PRN Q6HRS PRN PO MILD PAIN / TEMP > 100.3'F; Start 07/12/19 at 15:15 Albuterol Sulfate (Ventolin Neb Soln) 2.5 mg PRN Q4HRS PRN NEB SHORTNESS OF BREATH; Start 07/12/19 at 15:15 Bisacodyl (Dulcolax Supp) 10 mg PRN DAILY PRN [place] CONSTIPATION; Start 07/12/19 at 15:15 Polyethylene Glycol (miraLAX PACKET) 17 gm PRN DAILY PRN PO CONSTIPATION Last administered on 07/14/19at 08:59; Start 07/12/19 at 15:15 Amlodipine Besylate (Norvasc) 10 mg DAILY PO Last administered on 07/14/19at 09:00; Start 07/13/19 at 09:00 Multivitamins (Thera M Plus) 1 tab DAILY PO Last administered on 07/14/19at 09:00; Start 07/13/19 at 09:00 Magnesium Sulfate 50 ml @ 25 mls/hr 1X ONCE IV Last administered on 07/13/19at 12:02; Start 07/13/19 at 11:00; Stop 07/13/19 at 12:59; Status DC Lactulose (Lactulose) 20 gm Q2H PO Last administered on 07/13/19at 12:02; Start 07/13/19 at 13:00; Stop 07/13/19 at 15:01; Status DC Potassium Chloride (Klor-Con) 20 meq 1X ONCE PO Last administered on 07/13/19at 12:01; Start 07/13/19 at 11:00; Stop 07/13/19 at 11:01; Status DC Active Scripts Active FENTANYL 12mcg/hr (Fentanyl) 1 Each Patch.td72 1 Patch TP Q3DAYS Lyrica (Pregabalin) 50 Mg Capsule 1 Cap PO BID Hydroxychloroquine Sulfate 200 Mg Tablet 200 Mg PO BID Vitamin C (Ascorbic Acid) 500 Mg Tablet 500 Mg PO DAILY Pantoprazole Sodium (Pantoprazole Sodium) 40 Mg Tablet.dr 40 Mg PO DAILY Sertraline Hcl 50 Mg Tablet 50 Mg PO DAILY Amlodipine Besylate 10 Mg Tablet 10 Mg PO DAILY Carvedilol (Carvedilol) 6.25 Mg Tablet 6.25 Mg PO BIDWMEALS Duoneb 0.5-3(2.5) Mg/3 Ml (Albuterol/Ipratropium) 3 Ml Ampul.neb 3 Ml NEB RTQID Hydrocodone-Apap 5-325 (Hydrocodone Bit/Acetaminophen) 1 Tab Tablet 1 Tab PO PRN Q8HRS PRN Aspirin Ec (Aspirin) 81 Mg Tablet.dr 81 Mg PO DAILYWBKFT Reported Duoneb 0.5-3(2.5) Mg/3 Ml (Albuterol/Ipratropium) 3 Ml Ampul.neb 3 Ml NEB PRN Q4HRS PRN Vitamin D (Cholecalciferol (Vitamin D3)) 1,000 Unit Capsule 1 Cap PO DAILY Multi-Day Vitamins (Multivitamin) 1 Each Tablet 1 Tab PO DAILY Vitals/I & O Vital Sign - Last 24 Hours 07/13/19 07/13/19 07/13/19 07/13/19 15:22 18:06 19:24 20:00 Temp 98.3 98.4 98.3 98.4 Pulse 70 70 73 Resp 16 16 B/P (MAP) 134/63 (86) 134/63 125/51 (75) Pulse Ox 97 96 O2 Delivery Nasal Cannula Nasal Cannula Nasal Cannula O2 Flow Rate 3.0 3.0 3.0 07/13/19 07/14/19 07/14/19 07/14/19 22:30 03:59 07:00 08:00 Temp 98.4 97.9 98.3 98.4 97.9 98.3 Pulse 68 75 68 Resp 16 16 16 B/P (MAP) 121/52 (75) 152/61 (91) 129/57 (81) Pulse Ox 93 98 98 O2 Delivery Nasal Cannula Nasal Cannula Nasal Cannula Nasal Cannula O2 Flow Rate 3.0 3.0 3.0 3.0 07/14/19 07/14/19 07/14/19 09:00 09:01 11:00 Temp 98.2 98.2 Pulse 68 68 66 Resp 18 B/P (MAP) 129/57 129/57 141/62 (88) Pulse Ox 94 O2 Delivery Nasal Cannula O2 Flow Rate 3.0 Intake and Output 07/13/19 07/13/19 07/14/19 15:00 23:00 07:00 Intake Total 100 ml Output Total 950 ml 675 ml Balance -950 ml -575 ml CECILIA NIXON MD Jul 14, 2019 14:48
[2019-07-14 15:00] VITALS: BP 138/60
--- NOTE | 2019-07-14 16:10 | CARD ---
MR#: [id number] Date of Study: 07/14/2019 Ordering Physician: EMANUEL KELLEY, Referring Physician: EMANUEL KELLEY, Tech: Cathy Lund APPROVED REPORT EXAM: LIMITED Two-dimensional and M-mode echocardiogram with Doppler and color Doppler. Other Information Quality : AverageHR: 70bpm Rhythm : NSR INDICATION Congenital Heart Disease 2D DIMENSIONS RVDd3.0 (2.9-3.5cm)Left Atrium(2D)3.7 (1.6-4.0cm) IVSd1.5 (0.7-1.1cm)LVDd4.2 (3.9-5.9cm) PWd1.2 (0.7-1.1cm)LVDs3.3 (2.5-4.0cm) FS (%) 22.1 %SV36.0 ml Mitral Valve MV E Peak Gr.8mmHgMV E Mean Gr.4mmHg Tricuspid Valve TR P. [id number] TR Peak Gr.[id number] LEFT VENTRICLE The left ventricle is normal size. There is moderate concentric left ventricular hypertrophy. The lef t ventricular systolic function is normal and the ejection fraction is within normal range. The Eject ion Fraction is 50-55%. There is normal LV segmental wall motion. RIGHT VENTRICLE The right ventricle is normal size. There is normal right ventricular wall thickness. The right ventr icular systolic function is normal. ATRIA The left atrium size is normal. The right atrium size is normal. The interatrial septum is intact wit h no evidence for an atrial septal defect or patent foramen ovale as noted on 2-D or Doppler imaging. AORTIC VALVE The aortic valve is calcified but opens well. MITRAL VALVE Mitral annular calcification is severe. There is no evidence of mitral valve prolapse. There is mild to moderate mitral valve stenosis with maximum pressure gradient of 8 mmHg and mean pressure gradient of 4 mmHg. Doppler and Color-flow revealed trace to mild mitral regurgitation. TRICUSPID VALVE The tricuspid valve is normal in structure and function. Doppler and Color Flow revealed mild tricusp id regurgitation. The PA pressure was estimated at 54 mmHg. There is no tricuspid valve prolapse or v egetation. There is no tricuspid valve stenosis. PULMONIC VALVE The pulmonic valve is not well visualized. GREAT VESSELS The aortic root is normal in size. The ascending aorta is normal in size. The IVC is dilated. PERICARDIAL EFFUSION There is no evidence of significant pericardial effusion. Critical Notification Critical Value: No <Conclusion> The left ventricle is normal size. The left ventricular systolic function is normal and the ejection fraction is within normal range. The Ejection Fraction is 50-55%. There is moderate concentric left ventricular hypertrophy. The aortic valve is calcified but opens well. There is mild to moderate mitral valve stenosis with maximum pressure gradient of 8 mmHg and mean pre ssure gradient of 4 mmHg. Doppler and Color-flow revealed trace to mild mitral regurgitation. Doppler and Color Flow revealed mild tricuspid regurgitation. The PA pressure was estimated at 54 mmHg. Signed by : Monster Zhang MD Electronically Approved : 07/14/2019 16:10:05
[2019-07-14] MEDS: ENOXAPARIN 40 MG/0.4 ML SYRINGE. SQ SCH (17:46)
[2019-07-14 19:31] VITALS: BP 136/35
[2019-07-14] MEDS: ZOLPIDEM 5 MG TABLET. PO SCH (21:56)
[2019-07-14 22:52] VITALS: BP 130/46
[2019-07-15 03:29] VITALS: BP 117/52
[2019-07-15 07:00] VITALS: BP 154/68
[2019-07-15] MEDS ORDERED: ASPIRIN CHEWABLE 81 MG TABLET. PO SCH (08:00)
[2019-07-15] MEDS: amLODIPine BESYLATE 10 MG TABLET PO SCH (08:48)
[2019-07-15] MEDS: POTASSIUM CHLORIDE 20 MEQ TABLET.ER. PO SCH (08:48)
[2019-07-15] MEDS: ALPRAZolam 0.5 MG TABLET PO SCH (08:49)
[2019-07-15] MEDS: MULTIVITAMIN with MINERAL TABLET. PO SCH (08:49)
[2019-07-15] MEDS: PANTOPRAZOLE 40 MG TABLET.DR. PO SCH (08:49)
[2019-07-15] MEDS: CARVEDILOL 6.25 MG TABLET. PO SCH (08:49)
[2019-07-15] MEDS: SERTRALINE 50 MG TABLET. PO SCH (08:49)
[2019-07-15] MEDS: DOCUSATE SODIUM 100 MG CAPSULE. PO SCH (08:49)
[2019-07-15] MEDS: rOPINIRole 1 MG TABLET. PO SCH (08:50)
[2019-07-15] MEDS: CHOLECALCIFEROL (VITAMIN D3) 1,000 UNIT TABLET PO SCH (08:50)
[2019-07-15] MEDS: PREGABALIN 50 MG CAPSULE PO SCH (08:50)
[2019-07-15] MEDS: FUROSEMIDE 40 MG/4 ML VIAL. IVP SCH (08:52)
[2019-07-15] MEDS ORDERED: fentaNYL 12MCG/HR PATCH 1 PATCH PATCH.TD72 TD SCH (09:00)
[2019-07-15 09:19] LABS: CALCIUM 8.8 mg/dL (8.5-10.1); CREATININE 0.8 mg/dL (0.6-1.0); GFR 67.8; MAGNESIUM 1.8 mg/dL (1.8-2.4)
--- NOTE | 2019-07-15 09:22 | RAD ---
CHEST AP ONLY History: Reason: SHORT OF AIR / Spl. Instructions: / History: Comparison: July 14, 2019 Findings: Decreased interstitial thickening. Decreased patchy bibasilar opacities. Small bilateral pleural effusions, unchanged. Unchanged heart size. Stable left-sided pacemaker. No pneumothorax. Unchanged heart size. Postop changes right upper quadrant. Impression: 1. Decreased interstitial opacities. 2. Small bilateral pleural effusions, unchanged. Electronically signed by: Sumanth Nayak DO (07/15/2019 9:19 AM) [id number]
--- NOTE | 2019-07-15 10:14 | PDOC ---
PROGRESS NOTES Subjective Subjective feels better. not short of breath. lab and cxr report reviewed. cxr better. echo showed a preserved LVEF with mild/mod mitral stenosis and moderate pulmonary hypertension. Objective Objective Vital Signs Date Time Temp Pulse Resp B/P (MAP) Pulse Ox O2 Delivery O2 Flow Rate FiO2 07/15/19 09:02 Nasal Cannula 3.0 07/15/19 08:49 68 154/68 07/15/19 07:00 97.6 20 94 97.6 Intake and Output 07/15/19 07:00 Intake Total 750 ml Output Total 1650 ml Balance -900 ml Intake Oral 750 ml Output Urine Total 1650 ml Physical Exam Abdomen: Soft Heart: Regular rate, Normal S1, Normal S2 Extremities: No edema General: Alert HEENT: Atraumatic Lungs: Clear to auscultation, Other (decreased breath sounds bilaterally) Neuro: Normal speech Psych/Mental Status: Mental status NL Skin: No rashes Assessment Assessment 1. Acute on chronic diastolic congestive heart failure. clinically compensated 2. Acute on chronic hypoxic respiratory failure. 3. Mitral stenosis.mild to moderate 4. Moderate pulmonary hypertension. 5. Diabetes mellitus type 2 with peripheral neuropathy, treated with diet. 6. Hypertension. 7. Hyperlipidemia with statin intolerance. 8. Anemia of chronic disease. 9. Chronic obstructive pulmonary disease. 10. Nonobstructive coronary artery disease. 11. Fibromyalgia. 12. Chronic pain. hypomagnesemia treated Plan Plan of Care switch to oral lasix d/c pantoja maria victoriaiss today discussed with dr. azar Comment Review of Relevant I have reviewed the following items lizbeth (where applicable) has been applied. Labs Laboratory Tests Test 07/13/19 12:06 07/13/19 17:11 07/13/19 20:43 07/14/19 05:00 Glucose (Fingerstick) 113 mg/dL (70-99) 153 mg/dL (70-99) 135 mg/dL (70-99) Sodium Level 141 mmol/L (136-145) Potassium Level 3.9 mmol/L (3.5-5.1) Chloride Level 98 mmol/L (98-107) Carbon Dioxide Level 41 mmol/L (21-32) Anion Gap 2 (6-14) Blood Urea Nitrogen 19 mg/dL (7-20) Creatinine 0.8 mg/dL (0.6-1.0) Estimated GFR (Cockcroft-Gault) 67.8 Glucose Level 90 mg/dL (70-99) Calcium Level 8.8 mg/dL (8.5-10.1) Magnesium Level 1.9 mg/dL (1.8-2.4) Test 07/14/19 07:08 07/14/19 12:36 07/14/19 17:15 07/14/19 20:52 Glucose (Fingerstick) 98 mg/dL (70-99) 113 mg/dL (70-99) 99 mg/dL (70-99) 116 mg/dL (70-99) Test 07/15/19 07:13 07/15/19 08:15 Glucose (Fingerstick) 106 mg/dL (70-99) Sodium Level 141 mmol/L (136-145) Potassium Level 4.0 mmol/L (3.5-5.1) Chloride Level 96 mmol/L (98-107) Carbon Dioxide Level 40 mmol/L (21-32) Anion Gap 5 (6-14) Blood Urea Nitrogen 20 mg/dL (7-20) Creatinine 0.8 mg/dL (0.6-1.0) Estimated GFR (Cockcroft-Gault) 67.8 Glucose Level 102 mg/dL (70-99) Calcium Level 8.8 mg/dL (8.5-10.1) Magnesium Level 1.8 mg/dL (1.8-2.4) Laboratory Tests Test 07/14/19 12:36 07/14/19 17:15 07/14/19 20:52 07/15/19 07:13 Glucose (Fingerstick) 113 mg/dL (70-99) 99 mg/dL (70-99) 116 mg/dL (70-99) 106 mg/dL (70-99) Test 07/15/19 08:15 Sodium Level 141 mmol/L (136-145) Potassium Level 4.0 mmol/L (3.5-5.1) Chloride Level 96 mmol/L (98-107) Carbon Dioxide Level 40 mmol/L (21-32) Anion Gap 5 (6-14) Blood Urea Nitrogen 20 mg/dL (7-20) Creatinine 0.8 mg/dL (0.6-1.0) Estimated GFR (Cockcroft-Gault) 67.8 Glucose Level 102 mg/dL (70-99) Calcium Level 8.8 mg/dL (8.5-10.1) Magnesium Level 1.8 mg/dL (1.8-2.4) Microbiology 07/12/19 Urine Culture - Final, Complete 07/12/19 Antimicrobic Susceptibility - Final, Complete Medications Current Medications Furosemide (Lasix) 60 mg 1X ONCE IVP Last administered on 07/12/19 13:09; Start 07/12/19 at 13:00; Stop 07/12/19 at 13:01; Status DC Ondansetron HCl (Zofran) 4 mg PRN Q8HRS PRN IV NAUSEA/VOMITING; Start 07/12/19 at 13:45; Stop 07/13/19 at 13:44; Status DC Furosemide (Lasix) 40 mg DAILY IVP Last administered on 07/15/19 08:52; Start 07/13/19 at 09:00 Potassium Chloride (Klor-Con) 20 meq DAILYWBKFT PO Last administered on 07/15/19at 08:48; Start 07/13/19 at 08:00 Enoxaparin Sodium (Lovenox 40mg Syringe) 40 mg Q24H SQ Last administered on 07/14/19at 17:46; Start 07/12/19 at 17:00 Alprazolam (Xanax) 0.5 mg BID PO Last administered on 07/15/19 08:49; Start 07/12/19 at 21:00 Aspirin (Ede Aspirin) 81 mg DAILYWBKFT PO Last administered on 07/14/19at 09:00; Start 07/13/19 at 08:00; Stop 07/15/19 at 07:58; Status DC Carvedilol (Coreg) 6.25 mg BIDWMEALS PO Last administered on 07/15/19 08:49; Start 07/12/19 at 17:00 Docusate Sodium (Colace) 100 mg BID PO Last administered on 07/15/19 08:49; Start 07/12/19 at 21:00 Fentanyl (Duragesic 12mcg/ Hr Patch) 1 patch Q3DAYS TD Last administered on 07/15/19 09:02; Start 07/15/19 at 09:00 Pregabalin (Lyrica) 50 mg BID PO Last administered on 07/15/19 08:50; Start 07/12/19 at 21:00 Pantoprazole Sodium (Protonix) 40 mg DAILYAC PO Last administered on 07/15/19 08:49; Start 07/13/19 at 07:30 Ropinirole HCl (Requip) 1 mg TID PO Last administered on 07/15/19 08:50; Start 07/12/19 at 21:00 Sertraline HCl (Zoloft) 100 mg DAILY PO Last administered on 07/15/19 08:49; Start 07/13/19 at 09:00 Zolpidem Tartrate (Ambien) 5 mg QHS PO Last administered on 07/14/19 21:56; Start 07/12/19 at 21:00 Vitamin D (Vitamin D3) 1,000 unit DAILY PO Last administered on 07/15/19 08:50; Start 07/13/19 at 09:00 Acetaminophen/ Hydrocodone Bitart (Lortab 5/325) 1 tab PRN TID PRN PO MODERATE PAIN, SEVERE PAIN Last administered on 07/12/19 20:28; Start 07/12/19 at 15:15 Acetaminophen (Tylenol) 650 mg PRN Q6HRS PRN PO MILD PAIN / TEMP > 100.3'F; Start 07/12/19 at 15:15 Albuterol Sulfate (Ventolin Neb Soln) 2.5 mg PRN Q4HRS PRN NEB SHORTNESS OF BREATH; Start 07/12/19 at 15:15 Bisacodyl (Dulcolax Supp) 10 mg PRN DAILY PRN [place] CONSTIPATION; Start 07/12/19 at 15:15 Polyethylene Glycol (miraLAX PACKET) 17 gm PRN DAILY PRN PO CONSTIPATION Last administered on 07/14/19 08:59; Start 07/12/19 at 15:15 Amlodipine Besylate (Norvasc) 10 mg DAILY PO Last administered on 07/15/19 08:48; Start 07/13/19 at 09:00 Multivitamins (Thera M Plus) 1 tab DAILY PO Last administered on 07/15/19 08:49; Start 07/13/19 at 09:00 Magnesium Sulfate 50 ml @ 25 mls/hr 1X ONCE IV Last administered on 07/13/19 12:02; Start 07/13/19 at 11:00; Stop 07/13/19 at 12:59; Status DC Lactulose (Lactulose) 20 gm Q2H PO Last administered on 07/13/19at 12:02; Start 07/13/19 at 13:00; Stop 07/13/19 at 15:01; Status DC Potassium Chloride (Klor-Con) 20 meq 1X ONCE PO Last administered on 07/13/19at 12:01; Start 07/13/19 at 11:00; Stop 07/13/19 at 11:01; Status DC Aspirin (Aspirin Chewable) 81 mg DAILYWBKFT PO Last administered on 07/15/19at 08:48; Start 07/15/19 at 08:00 Active Scripts Active FENTANYL 12mcg/hr (Fentanyl) 1 Each Patch.td72 1 Patch TP Q3DAYS Lyrica (Pregabalin) 50 Mg Capsule 1 Cap PO BID Hydroxychloroquine Sulfate 200 Mg Tablet 200 Mg PO BID Vitamin C (Ascorbic Acid) 500 Mg Tablet 500 Mg PO DAILY Pantoprazole Sodium (Pantoprazole Sodium) 40 Mg Tablet. 40 Mg PO DAILY Sertraline Hcl 50 Mg Tablet 50 Mg PO DAILY Amlodipine Besylate 10 Mg Tablet 10 Mg PO DAILY Carvedilol (Carvedilol) 6.25 Mg Tablet 6.25 Mg PO BIDWMEALS Duoneb 0.5-3(2.5) Mg/3 Ml (Albuterol/Ipratropium) 3 Ml Ampul.neb 3 Ml NEB RTQID Hydrocodone-Apap 5-325 (Hydrocodone Bit/Acetaminophen) 1 Tab Tablet 1 Tab PO PRN Q8HRS PRN Aspirin Ec (Aspirin) 81 Mg Tablet. 81 Mg PO DAILYWBKFT Reported Duoneb 0.5-3(2.5) Mg/3 Ml (Albuterol/Ipratropium) 3 Ml Ampul.neb 3 Ml NEB PRN Q4HRS PRN Vitamin D (Cholecalciferol (Vitamin D3)) 1,000 Unit Capsule 1 Cap PO DAILY Multi-Day Vitamins (Multivitamin) 1 Each Tablet 1 Tab PO DAILY Vitals/I & O Vital Sign - Last 24 Hours 07/14/19 07/14/19 07/14/19 07/14/19 11:00 15:00 17:46 19:31 Temp 98.2 97.7 98.2 98.2 97.7 98.2 Pulse 66 70 70 62 Resp 18 20 18 B/P (MAP) 141/62 (88) 138/60 (86) 138/60 136/35 (68) Pulse Ox 94 98 97 O2 Delivery Nasal Cannula Nasal Cannula Nasal Cannula O2 Flow Rate 3.0 3.0 3.0 07/14/19 07/14/19 07/15/19 07/15/19 20:21 22:52 03:29 07:00 Temp 98.0 97.9 97.6 98.0 97.9 97.6 Pulse 72 69 68 Resp 16 18 20 B/P (MAP) 130/46 (74) 117/52 (73) 154/68 (96) Pulse Ox 95 96 94 O2 Delivery Nasal Cannula Nasal Cannula Nasal Cannula Nasal Cannula O2 Flow Rate 3.0 3.0 3.0 3.0 07/15/19 07/15/19 07/15/19 08:48 08:49 09:02 Pulse 68 68 B/P (MAP) 154/68 154/68 O2 Delivery Nasal Cannula O2 Flow Rate 3.0 Intake and Output 07/14/19 07/14/19 07/15/19 15:00 23:00 07:00 Intake Total 300 ml 300 ml 150 ml Output Total 1350 ml 300 ml Balance 300 ml -1050 ml -150 ml KARAN KIMBLE MD Jul 15, 2019 10:14
[2019-07-15] MEDS ORDERED: POTA20TA4 PO (10:23)
[2019-07-15] MEDS ORDERED: ZOLP5TAB PO (10:23)
[2019-07-15] MEDS ORDERED: ROPI1TAB4 PO (10:23)
[2019-07-15] MEDS ORDERED: ALPR0.5T6 PO (10:23)
[2019-07-15] MEDS ORDERED: FURO40TA4 PO (10:24)
--- NOTE | 2019-07-15 10:24 | DISCH ---
DISCHARGE INSTRUCTIONS Condition on Discharge Condition on Discharge: Stable Activity After Discharge Activity Instructions for Disc: Activity as tolerated Driving Instructions after Dis: Do not drive Weight Bearing Status after Di: As tolerated Diet after Discharge Diet after Discharge: Cardiac Diet Texture: Regular Liquid Texture: Thin Liquid Wound Incision Care Wound/Incision Care: Change dressing Wound Care Equipment: Dressings Checks after Discharge Checks after discharge: Check blood press - daily Contacting the [facility] after DC Call your doctor for: If your condition worsens Follow-Up Follow up with: dr. kimble later this week or next week Treatment/Equipment after DC Adaptive Equipment Issued: None, Wheelchair Discharge Respiratory Equipmen: Oxygen KARAN KIMBLE MD Jul 15, 2019 10:24
--- NOTE | 2019-07-15 10:30 | PDOC ---
Provider Note Provider Note discharge summary dictated # [id number] Justicifation of Admission Dx: Justifications for Admission: Justification of Admission Dx: Yes KARAN KIMBLE MD Jul 15, 2019 10:30
[2019-07-15] MEDS ORDERED: ASPI-630 PO (10:31)
--- NOTE | 2019-07-15 10:33 | PDOC ---
PULMONARY PROGRESS NOTES Subjective Feeling better today, reports improvement in her SOB Denies Cough or CP Vitals Vital Signs Date Time Temp Pulse Resp B/P (MAP) Pulse Ox O2 Delivery O2 Flow Rate FiO2 07/15/19 09:02 Nasal Cannula 3.0 07/15/19 08:49 68 154/68 07/15/19 07:00 97.6 20 94 97.6 ROS: No Nausea, No Chest Pain, No Abdominal Pain, No Increase Cough General: Alert Lungs: Clear Cardiovascular: S1, S2 Abdomen: Soft, Non-tender Neuro Exam: Alert, Oriented Extremities: No Edema Labs Laboratory Tests Test 07/13/19 12:06 07/13/19 17:11 07/13/19 20:43 07/14/19 05:00 Glucose (Fingerstick) 113 mg/dL (70-99) 153 mg/dL (70-99) 135 mg/dL (70-99) Sodium Level 141 mmol/L (136-145) Potassium Level 3.9 mmol/L (3.5-5.1) Chloride Level 98 mmol/L (98-107) Carbon Dioxide Level 41 mmol/L (21-32) Anion Gap 2 (6-14) Blood Urea Nitrogen 19 mg/dL (7-20) Creatinine 0.8 mg/dL (0.6-1.0) Estimated GFR (Cockcroft-Gault) 67.8 Glucose Level 90 mg/dL (70-99) Calcium Level 8.8 mg/dL (8.5-10.1) Magnesium Level 1.9 mg/dL (1.8-2.4) Test 07/14/19 07:08 07/14/19 12:36 07/14/19 17:15 07/14/19 20:52 Glucose (Fingerstick) 98 mg/dL (70-99) 113 mg/dL (70-99) 99 mg/dL (70-99) 116 mg/dL (70-99) Test 07/15/19 07:13 07/15/19 08:15 Glucose (Fingerstick) 106 mg/dL (70-99) Sodium Level 141 mmol/L (136-145) Potassium Level 4.0 mmol/L (3.5-5.1) Chloride Level 96 mmol/L (98-107) Carbon Dioxide Level 40 mmol/L (21-32) Anion Gap 5 (6-14) Blood Urea Nitrogen 20 mg/dL (7-20) Creatinine 0.8 mg/dL (0.6-1.0) Estimated GFR (Cockcroft-Gault) 67.8 Glucose Level 102 mg/dL (70-99) Calcium Level 8.8 mg/dL (8.5-10.1) Magnesium Level 1.8 mg/dL (1.8-2.4) Laboratory Tests Test 07/14/19 12:36 07/14/19 17:15 07/14/19 20:52 07/15/19 07:13 Glucose (Fingerstick) 113 mg/dL (70-99) 99 mg/dL (70-99) 116 mg/dL (70-99) 106 mg/dL (70-99) Test 07/15/19 08:15 Sodium Level 141 mmol/L (136-145) Potassium Level 4.0 mmol/L (3.5-5.1) Chloride Level 96 mmol/L (98-107) Carbon Dioxide Level 40 mmol/L (21-32) Anion Gap 5 (6-14) Blood Urea Nitrogen 20 mg/dL (7-20) Creatinine 0.8 mg/dL (0.6-1.0) Estimated GFR (Cockcroft-Gault) 67.8 Glucose Level 102 mg/dL (70-99) Calcium Level 8.8 mg/dL (8.5-10.1) Magnesium Level 1.8 mg/dL (1.8-2.4) Medications Active Scripts Medications Dose Route/Sig Max Daily Dose Days Date Category FENTANYL 12mcg/hr (Fentanyl) 1 Each Patch.td72 1 Patch TP Q3DAYS 01/23/19 Rx Lyrica (Pregabalin) 50 Mg Capsule 1 Cap PO BID 01/23/19 Rx Hydroxychloroquine Sulfate 200 Mg Tablet 200 Mg PO BID 01/13/19 Rx Vitamin C (Ascorbic Acid) 500 Mg Tablet 500 Mg PO DAILY 01/13/19 Rx Pantoprazole Sodium (Pantoprazole Sodium) 40 Mg Tablet.dr 40 Mg PO DAILY 01/13/19 Rx Sertraline Hcl 50 Mg Tablet 50 Mg PO DAILY 01/13/19 Rx Amlodipine Besylate 10 Mg Tablet 10 Mg PO DAILY 01/13/19 Rx Carvedilol (Carvedilol) 6.25 Mg Tablet 6.25 Mg PO BIDWMEALS 01/13/19 Rx Duoneb 0.5-3(2.5) Mg/3 Ml (Albuterol/Ipratropium) 3 Ml Ampul.neb 3 Ml NEB RTQID 01/13/19 Rx Hydrocodone-Apap 5-325 (Hydrocodone Bit/Acetaminophen) 1 Tab Tablet 1 Tab PO PRN Q8HRS PRN 01/13/19 Rx Aspirin Ec (Aspirin) 81 Mg Tablet.dr 81 Mg PO DAILYWBKFT 06/07/18 Rx Duoneb 0.5-3(2.5) Mg/3 Ml (Albuterol/Ipratropium) 3 Ml Ampul.neb 3 Ml NEB PRN Q4HRS PRN 03/13/18 Reported Vitamin D (Cholecalciferol (Vitamin D3)) 1,000 Unit Capsule 1 Cap PO DAILY 06/24/17 Reported Multi-Day Vitamins (Multivitamin) 1 Each Tablet 1 Tab PO DAILY 01/18/16 Reported Comments CXR 07/14/2019 IMPRESSION: Improving changes associated with congestive heart failure, as described in detail above. Impression . IMPRESSION: 1. Acute on chronic respiratory failure secondary to development of congestive heart failure. 2. The patient with history of chronic diastolic heart failure and moderate mitral stenosis, likely contributing factor to congestive heart failure. 3. Abnormal chest x-ray with bilateral interstitial and alveolar infiltrates and elevated right hemidiaphragm consistent with congestive heart failure. 4. No significant history of tobacco use. 5. 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 >100,000 CFU/ML FINAL ID= [STAPHYLOCOCCUS EPIDERMIDIS] Plan . RECOMMENDATIONS: Supplemental oxygen to keep sats above 92%, now on 3 liters N/C CXR reviewed today. resolving chf Follow Cardiology recommendations for diuresis monitor electrolytes DVT prophylaxis with Lovenox: protonix/lovenox urine culture staph epi. Rx per PCP ok with dc home Discussed with YONI LEARY MD Jul 15, 2019 10:33
--- NOTE | 2019-07-15 10:49 | DS ---
DATE OF DISCHARGE: 07/15/2019 CONSULTANTS: Include Dr. Reed and Dr. Hernandez. FINAL DIAGNOSES: 1. Nslsi-sc-orppthc diastolic congestive heart failure. 2. Pvre-db-ukqzgbbq mitral stenosis. 3. Elbpc-cr-rdgyubo hypoxic respiratory failure. 4. Moderate pulmonary hypertension. 5. Diabetes mellitus type 2 with peripheral neuropathy, treated with diet. 6. Hypertension. 7. Hyperlipidemia with statin intolerance. 8. Anemia of chronic disease. 9. Chronic obstructive pulmonary disease. 10. Nonobstructive coronary artery disease. 11. Fibromyalgia. 12. Chronic pain. 13. Hypomagnesemia. HOSPITAL COURSE: The patient is an 88-year-old white female with history of diabetes mellitus type 2 with peripheral neuropathy, treated with diet, hypertension, hyperlipidemia, mitral stenosis, nonobstructive coronary artery disease with COPD and chronic hypoxic respiratory failure, maintained on oxygen at 2.5 liters per nasal cannula at home, admitted to [facility] to the Emergency Room on 07/12/2019 with shortness of breath. She had shortness of breath for a couple of days and also her oxygen saturations were around 89% at home and she had increased her oxygen to 3 liters per nasal cannula. In the Emergency Room, she had had bilateral lung infiltrates and elevated BNP, consistent with congestive heart failure, received IV Lasix 60 mg in the Emergency Room. Chest x-ray showed bilateral interstitial and alveolar infiltrates, consistent with congestive heart failure. She was seen in consultation by Dr. Hernandez for Cardiology and Dr. Reed for Pulmonary. She received IV Lasix with good diuresis. She did have an echocardiogram done, which showed old left ventricular ejection fraction of 50-55% with moderate left ventricular hypertrophy, gtpi-pl-tmmvbkiu mitral stenosis and moderate pulmonary hypertension. She was treated with IV Lasix 40 mg daily and then eventually switched to oral Lasix 40 mg every day and potassium chloride 20 mEq every day was also started. She had hypomagnesemia and received IV magnesium. Lungs were clear with decreased breath sounds bilaterally today and she is not short of breath. I discussed the case with Dr. Reed, who feels that the patient is ready for dismissal today also. Chest x-ray showed improvement. She will be dismissed to home on Tylenol 650 mg every 6 hours p.r.n.; albuterol nebulizer treatments every 4 hours p.r.n.; alprazolam 0.5 mg b.i.d., which she has at home; amlodipine 10 mg every day; and also, aspirin 81 mg every day; carvedilol 6.25 mg b.i.d.; vitamin D 1000 units every day; Colace 100 mg b.i.d.; fentanyl 12 mcg patch every 72 hours; furosemide 40 mg p.o. daily; [place] 5/325 one tablet t.i.d. p.r.n. for pain. She has had at home multivitamin with minerals once a day; Protonix 40 mg every day; potassium chloride 20 mEq every day; Lyrica 50 mg b.i.d.; Requip 1 mg t.i.d., sertraline 100 mg every day, Ambien 5 mg at bedtime. She will make an appointment to see Dr. Castelan in the office later this week or next week, she will need a basic metabolic profile. She will be dismissed on a cardiac diet. She has caregivers at home with her 29/08. KARAN CASTELAN MD DR: KATHY/ben JOB#: [id number] / [id number]
[2019-07-15 11:10] VITALS: BP 116/56
--- NOTE | 2019-07-15 12:01 | NUR ---
SS following for discharge planning. SS reviewed pt chart and discussed with pt RN. Pt is from home and has 24/7 caregivers. Pt is currently requiring oxygen and has home oxygen at home. Discharge order on the chart for home with self care.
--- NOTE | 2019-07-15 13:39 | NUR ---
Discharge Note: SYBIL AUGUSTINE [address] Discharge instructions and discharge home medications reviewed with Patient and a copy given. All questions have been answered and understanding verbalized. The following instructions and handouts were given: cardiac diet, follow up with Dr. Castelan. Discontinued lines and drains: IV removed, no lines present. Patient discharged to home with her daughter. by her wheelchair to private vehicle. patient used her own O2 and wound photos done with in 24 hours on 07-14-19. patient has 24 hour in home care.
--- NOTE | 2019-07-15 14:40 | NUR ---
Patient voided without difficulty about 1 hour after Gray catheter removed.
[2019-07-16] MEDS ORDERED: FUROSEMIDE 40 MG TABLET. PO SCH (09:00)
== END 2019-07-15 13:30 | disposition home or self-care (01) | DRG 291 ==
LOC: ER 10:11 → 2 SOUTH 14:47
PROVIDERS: ADMIT Internal Medicine; ATTEND Internal Medicine
DX: I13.0 Hypertensive heart and chronic kidney disease with heart failure and stage 1 through stage 4 chronic kidney disease, or unspecified chronic kidney disease (principal); I50.33 Acute on chronic diastolic (congestive) heart failure; J96.21 Acute and chronic respiratory failure with hypoxia; D63.8 Anemia in other chronic diseases classified elsewhere; E11.22 Type 2 diabetes mellitus with diabetic chronic kidney disease; E11.42 Type 2 diabetes mellitus with diabetic polyneuropathy; E78.5 Hyperlipidemia, unspecified; E83.42 Hypomagnesemia; G89.29 Other chronic pain; I05.0 Rheumatic mitral stenosis; I25.10 Atherosclerotic heart disease of native coronary artery without angina pectoris; I25.2 Old myocardial infarction; I27.29 Other secondary pulmonary hypertension; I49.5 Sick sinus syndrome; J44.9 Chronic obstructive pulmonary disease, unspecified; K59.00 Constipation, unspecified; M79.7 Fibromyalgia; N18.2 Chronic kidney disease, stage 2 (mild); Z79.82 Long term (current) use of aspirin; Z79.899 Other long term (current) drug therapy; Z87.19 Personal history of other diseases of the digestive system; Z87.891 Personal history of nicotine dependence; Z88.8 Allergy status to other drugs, medicaments and biological substances; Z90.49 Acquired absence of other specified parts of digestive tract; Z90.710 Acquired absence of both cervix and uterus; Z95.0 Presence of cardiac pacemaker; Z96.641 Presence of right artificial hip joint; F32.9 Major depressive disorder, single episode, unspecified; F41.9 Anxiety disorder, unspecified; G62.9 Polyneuropathy, unspecified; K21.9 Gastro-esophageal reflux disease without esophagitis; M19.90 Unspecified osteoarthritis, unspecified site; Z79.4 Long term (current) use of insulin
CPT/HCPCS: 36415; 71045; 80048; 80053; 80061; 81001; 82962; 83735; 83880; 84484; 85025; 85610; 87086; 93005; 93308; 96374; 99285; J1650; J1940; J3475; G0378

== ENCOUNTER → 2019-07-31 | Outpatient (CLI) | payer MEDICARE ==
[2019-07-15 11:10] VITALS: BP 116/56
[~2019-07-31] MED LIST changes: +ASPI-630 PO; +FURO40TA4 PO; +POTA20TA4 PO; +ROPI1TAB4 PO
== END | disposition home or self-care (01) ==
LOC: LAB 12:47
PROVIDERS: ATTEND Internal Medicine Gastroenterology
DX: Z11.59 Encounter for screening for other viral diseases (principal)
CPT/HCPCS: U0003-CS

== ENCOUNTER → 2019-08-05 | Day surgery (SDC) | payer MEDICARE ==
[~2019-08-05] MED LIST changes: +IV RINGERS,LACTATED 1000ML 1,000 ML IV ONE; +PROPOFOL 10 MG/ML (20ML) VIAL. IV ONE
--- NOTE | 2019-08-05 12:51 | PDOC1 ---
History and Physical Date of Admission Date of Admission DATE: 08/05/19 TIME: 12:44 Identification/Chief Complaint Chief Complaint Dysphagia Source Source: Chart review, Patient History of Present Illness History of Present Illness 88 y/o female with recurrent dysphagia; off and on for years. Associated heartburn on chronic PPI. Multiple EGD's in the past, usually with dilation lastly in 2016; she feels these are helpful. No PUD. S/p javier. No liver or pancreatic history. Chronic constipation on Miralax and occasional stimulant. Normal colonoscopy for h/o polyps in 2014. Past Medical History Cardiovascular: CHF, HTN, Hyperlipidemia Pulmonary: COPD, Pneumonia CENTRAL NERVOUS SYSTEM: Periperal neuropathy Heme/Onc: Anemia NOS Psych: Anxiety, Depression Musculoskeletal: low back pain, Osteoarthritis Rheumatologic: Fibromyalgia, Gout Renal/: UTI Endocrine: Diabetes Past Surgical History Past Surgical History: Pacemaker, Cholecystectomy, Cataract Removal, Total hip replacement, Hysterectomy, Other Family History Family History: Heart Disease Social History Smoke: No ALCOHOL: none Drugs: None Current Medications Current Medications Current Medications Ringer's Solution 1,000 ml @ 75 mls/hr 1X ONCE IV ; Start 08/05/19 at 08:30; Stop 08/05/19 at 21:49 Active Scripts Active Aspirin 81 Mg Tab.chew 81 Mg PO DAILY Furosemide 40 Mg Tablet 40 Mg PO DAILY Klor-Con M20 (Potassium Chloride) 20 Meq Tab.er.prt 20 Meq PO DAILYWBKFT Ropinirole Hcl 1 Mg Tablet 1 Mg PO TID Ambien (Zolpidem Tartrate) 5 Mg Tablet 5 Mg PO QHS Alprazolam 0.5 Mg Tablet 0.5 Mg PO BID FENTANYL 12mcg/hr (Fentanyl) 1 Each Patch.td72 1 Patch TP Q3DAYS Lyrica (Pregabalin) 50 Mg Capsule 1 Cap PO BID Pantoprazole Sodium (Pantoprazole Sodium) 40 Mg Tablet.dr 40 Mg PO DAILY Sertraline Hcl 50 Mg Tablet 50 Mg PO DAILY Amlodipine Besylate 10 Mg Tablet 10 Mg PO DAILY Carvedilol (Carvedilol) 6.25 Mg Tablet 6.25 Mg PO BIDWMEALS Hydrocodone-Apap 5-325 (Hydrocodone Bit/Acetaminophen) 1 Tab Tablet 1 Tab PO PRN Q8HRS PRN Reported Duoneb 0.5-3(2.5) Mg/3 Ml (Albuterol/Ipratropium) 3 Ml Ampul.neb 3 Ml NEB PRN Q4HRS PRN Vitamin D (Cholecalciferol (Vitamin D3)) 1,000 Unit Capsule 1 Cap PO DAILY Multi-Day Vitamins (Multivitamin) 1 Each Tablet 1 Tab PO DAILY Allergies Allergies: Coded Allergies: Iodinated Contrast Media (Verified Allergy, Intermediate, ITCH, 08/05/19) ROS Review of System Otherwise non-contributory. Physical Exam General: Alert, Oriented X3, Cooperative, No acute distress Lungs: Clear to auscultation Heart: S1S2, RRR, no gallops, no murmurs Abdomen: Normal bowel sounds, Soft, No tenderness, No hepatosplenomegaly, No masses Rectal Exam: not examined Extremities: No cyanosis, No edema Skin: No significant lesion Neuro: Normal speech, Strength at 5/5 X4 ext, Normal tone, Sensation intact, Cranial nerves 3-12 NL, Reflexes 2+ Psych/Mental Status: Mental status NL, Mood NL Vitals Vitals Vital Signs Date Time Temp Pulse Resp B/P (MAP) Pulse Ox O2 Delivery O2 Flow Rate FiO2 08/05/19 12:39 97.1 60 20 100 97.1 VTE Prophylaxis Ordered VTE Prophylaxis Devices: No VTE Pharmacological Prophylaxi: No Assessment/Plan Assessment/Plan IMP: Dysphagia, recurrent. REC: EGD. KARAN SULLIVAN MD Aug 05, 2019 12:51
--- NOTE | 2019-08-05 13:18 | PDOC4 ---
PROCEDURE Procedure EGD/dilation Indication: dysphagia Meds: per anesthesia Findings: E--tertiary contractions/sigmoid esophagus. Healed reflux of ? grade at 40cm. G--1.0 cm polyp at pylorus, biopsied. D--Normal to second portion. Dilated empirically with 48F Mann w/o resistance. Juan Antonio. well. IMP: GERD, healed Presbyesophagus Gastric polyp, biopsied. REC: Continue home diet and meds. Await path. F/u with me in 2 weeks. KARAN SULLIVAN MD Aug 05, 2019 13:18
[2019-08-05 13:33] VITALS: BP 113/60
--- NOTE | 2019-08-06 17:06 | PATHOLOGY ---
[facility] Accession Number: [id number] . 01 Material submitted: . stomach - PREPYLORIC NODULE BIOPSY . 01 Clinical history: . Dysphagia . 02 Diagnosis: Gastric biopsy, prepyloric nodule: - Adenomatous polyp. (JPM:hermelinda; 08/06/2019) [facility] 08/06/2019 1012 Local . 02 Comment: Sections of the prepyloric nodule biopsy reveal an adenomatous polyp. The glands within the polyp are moderately dysplastic. There is no evidence of malignancy. (JPM:hermelinda; 08/06/2019) . 02 Electronically signed: . Gorge Hein MD, Pathologist NPI- [id number] . 01 Gross description: . The specimen is received in formalin, labeled "Laura Barr, prepyloric nodule biopsy". Received is a segment of pale ny soft tissue measuring 0.4 cm in maximum dimensions. The specimen is submitted entirely in cassette A1. ([facility]; 08/05/2019) [facility] 08/05/2019 1644 Local . 02 Pathologist provided ICD-10: K31.7 . 02 CPT . 922225 Specimen Comment: A courtesy copy of this report has been sent to [phone], [phone] Specimen Comment: [id number] Specimen Comment: Report sent to / DR KIMBLE Performed at: 01 [facility] [address] [facility] [address], [place] [id number] MD Da Pierre MD Phone: [phone] Performed at: 02 [facility] [address] [place], [place] [id number] MD Gorge Hein MD Phone: [phone]
== END ==
LOC: ENDOS 11:56
PROVIDERS: ATTEND Internal Medicine Gastroenterology
DX: R13.10 Dysphagia, unspecified (principal); K31.7 Polyp of stomach and duodenum; K20.9 Esophagitis, unspecified; I10 Essential (primary) hypertension; E78.00 Pure hypercholesterolemia, unspecified; J44.9 Chronic obstructive pulmonary disease, unspecified; E11.9 Type 2 diabetes mellitus without complications; M79.7 Fibromyalgia; E78.5 Hyperlipidemia, unspecified; Z98.890 Other specified postprocedural states; Z79.84 Long term (current) use of oral hypoglycemic drugs
CPT/HCPCS: 43239; 43450; 88305; J2704

== ENCOUNTER 2019-09-17 10:03 | Inpatient (IN) | payer MEDICARE ==
[~2019-09-17] VITALS: Ht 152.4 cm; Wt 74.0 kg
[~2019-09-17 10:03] MED LIST changes: -ASPI-612 PO; +ASPI-886 PO; -IV RINGERS,LACTATED 1000ML 1,000 ML IV ONE; -PROPOFOL 10 MG/ML (20ML) VIAL. IV ONE
[2019-09-17 11:09] LABS: CALCIUM 8.9 mg/dL (8.5-10.1); CREATININE 0.8 mg/dL (0.6-1.0); GFR 67.7; POTASSIUM 4.5 mmol/L (3.5-5.1)
[2019-09-17 11:15] LABS: ALBUMIN 3.2 g/dL (3.4-5.0); ALBUMIN/GLOBULIN RATIO 0.7 (1.0-1.7); MAGNESIUM 2.1 mg/dL (1.8-2.4); TOTAL BILIRUBIN 0.4 mg/dL (0.2-1.0); TOTAL PROTEIN 7.8 g/dL (6.4-8.2)
[2019-09-17 11:18] LABS: BASO % 0 % (0-3); EOS % 0 % (0-3); HEMATOCRIT 28.1 % (36.0-47.0); HEMOGLOBIN 8.3 g/dL (12.0-15.5); LYMPH # 0.5 x10^3/uL (1.0-4.8); LYMPH % 4 % (24-48); MEAN CORPUSCULAR HEMOGLOBIN 21 pg (25-35); MEAN CORPUSCULAR HGB CONC 30 g/dL (31-37); MEAN CORPUSCULAR VOLUME 72 fL (79-100); MONO # 0.5 x10^3/uL (0.0-1.1); MONO % 4 % (0-9); NEUT # 13.7 x10^3/uL (1.8-7.7); NEUT % 93 % (31-73); PLATELET COUNT 180 x10^3/uL (140-400); RED BLOOD COUNT 3.91 x10^6/uL (3.50-5.40); RED CELL DISTRIBUTION WIDTH 17.3 % (11.5-14.5); WHITE BLOOD COUNT 14.8 x10^3/uL (4.0-11.0)
--- NOTE | 2019-09-17 11:37 | RAD ---
Chest one view HISTORY: Shortness of breath Comparison July 15, 2019 FINDINGS: Dual lead left-sided pacemaker again seen in place. No radiographic lead disruption is apparent. Heart appears normal size. There is bilateral patchy alveolar and interstitial infiltrates present. Appears to be a small right pleural effusion. No pneumothorax. IMPRESSION: Bilateral alveolar and interstitial infiltrates and small right pleural effusion Electronically signed by: Kolton Noriega MD (09/17/2019 11:34 AM) [id number]
--- NOTE | 2019-09-17 11:48 | EKG ---
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
[2019-09-17 11:53] LABS: BILIRUBIN,URINE NEGATIVE (NEG); CLARITY,URINE CLEAR; COLOR,URINE YELLOW; NITRITE,URINE POSITIVE (NEG); PROTEIN,URINE 30 mg/dL (NEG-TRACE); UROBILINOGEN,URINE 0.2 mg/dL (0.2 mg/dL)
[2019-09-17 11:54] LABS: % BANDS 4 % (0-9); % LYMPHS 4 % (24-48); % MONOS 2 % (0-10); % SEGS 90 % (35-66); PLT ESTIMATE ADEQUATE (ADEQUATE)
[2019-09-17 11:55] LABS: ANISOCYTOSIS SLIGHT
[2019-09-17 11:59] LABS: BACTERIA,URINE MANY /HPF (0-FEW); RBC,URINE OCC /HPF (0-2); SQUAMOUS EPITHELIAL CELL,UR FEW /LPF; WBC,URINE 20-40 /HPF (0-4)
[2019-09-17] MEDS ORDERED: AZITHRMYCN 500MG IVPB FOR OMNI 250 ML IV ONE (12:15)
[2019-09-17] MEDS ORDERED: cefTRIAXone IV Push 1 GM VIAL. IVP ONE (12:15)
--- NOTE | 2019-09-17 12:43 | PHYS DOC ---
Past Medical History Past Medical History: Arthritis, CAD, CHF, Constipation, COPD, Depression, Diabetes-Type II, Fibromyalgia, GERD, Hypertension, Pneumonia, UTI, Other Additional Past Medical Histor: NEUROPATHY Past Surgical History: Appendectomy, Cholecystectomy, Hysterectomy, Pacemaker, Other Additional Past Surgical Histo: NECK/BACK,HIP,EYE,CARPAL TUNNEL Smoking Status: Former Smoker Alcohol Use: None Drug Use: None General Adult EDM: Chief Complaint: SHORTNESS OF BREATH HPI: HPI: Patient is a 89 year old female who presented to ER today for evaluation of cough, trouble breathing, generalized weakness for about 2 days. Patient says she got up last night to use the bathroom she feels really weak she tripped and fell down on her knee. Patient says she scratched her right leg on the ground, denies any head or neck injury, denies any hip pain, no pelvic pain, no knee pain, no ankle pain. Patient denies any back pain. Patient denies any chest pain. Patient denies being exposed to anybody who test is positive for COVID- 19. Patient has history of CHF and COPD. Patient also has a pacemaker. Review of Systems: Review of Systems: Constitutional: Denies fever or chills. Positive for generalized weakness Eyes: Denies change in visual acuity. [] HENT: Denies nasal congestion or sore throat. [] Respiratory: Positive for cough and trouble breathing. Cardiovascular: Denies chest pain or edema. [] GI: Denies abdominal pain, nausea, vomiting, bloody stools or diarrhea. [] : Denies dysuria. [] Musculoskeletal: Denies back pain or joint pain. [] Integument: Denies rash. [] Neurologic: Denies headache, focal weakness or sensory changes. [] Endocrine: Denies polyuria or polydipsia. [] Lymphatic: Denies swollen glands. [] Psychiatric: Denies depression or anxiety. [] Heart Score: Risk Factors: Risk Factors: DM, Current or recent (<one month) smoker, HTN, HLP, family history of CAD, obesity. Risk Scores: Score 0 - 3: 2.5% MACE over next 6 weeks - Discharge Home Score 4 - 6: 20.3% MACE over next 6 weeks - Admit for Clinical Observation Score 7 - 10: 72.7% MACE over next 6 weeks - Early Invasive Strategies Current Medications: Current Medications Medications (Trade) Dose Ordered Sig/Lindsey Start Time Stop Time Status Last Admin Dose Admin Azithromycin 250 ml @ 250 mls/hr 1X ONCE 09/17/19 12:15 09/17/19 13:14 09/17/19 12:33 250 MLS/HR Ceftriaxone Sodium (Rocephin) 1 gm 1X ONCE 09/17/19 12:15 09/17/19 12:16 DC 09/17/19 12:33 1 GM Allergies: Allergies: Allergies Coded Allergies Type Severity Reaction Last Updated Verified Iodinated Contrast Media Allergy Intermediate ITCH 08/05/19 Yes Physical Exam: PE: Constitutional: Well developed, well nourished, no acute distress, non-toxic appearance. [] HENT: Normocephalic, atraumatic, bilateral external ears normal, oropharynx moist, no oral exudates, nose normal. [] Eyes: PERRLA, EOMI, conjunctiva normal, no discharge. [] Neck: Normal range of motion, no tenderness, supple, no stridor. [] Cardiovascular:Heart rate regular rhythm, no murmur [] Lungs & Thorax: Bilateral breath sounds with crackles at lung bases. No respiratory distress. Abdomen: Bowel sounds normal, soft, no tenderness, no masses, no pulsatile masses. [] Skin: Warm, dry, no erythema, no rash. Superficial skin abrasion on the right leg. Back: No tenderness, no CVA tenderness. [] Extremities: No tenderness, no cyanosis, no clubbing, ROM intact, no edema. [] Neurologic: Alert and oriented X 3, normal motor function, normal sensory function, no focal deficits noted. [] Psychologic: Affect normal, judgement normal, mood normal. [] Current Patient Data: Labs: Laboratory Tests Test 09/17/19 10:30 09/17/19 11:40 White Blood Count 14.8 x10^3/uL (4.0-11.0) H Red Blood Count 3.91 x10^6/uL (3.50-5.40) Hemoglobin 8.3 g/dL (12.0-15.5) L Hematocrit 28.1 % (36.0-47.0) L Mean Corpuscular Volume 72 fL (79-100) L Mean Corpuscular Hemoglobin 21 pg (25-35) L Mean Corpuscular Hemoglobin Concent 30 g/dL (31-37) L Red Cell Distribution Width 17.3 % (11.5-14.5) H Platelet Count 180 x10^3/uL (140-400) Neutrophils (%) (Auto) 93 % (31-73) H Lymphocytes (%) (Auto) 4 % (24-48) L Monocytes (%) (Auto) 4 % (0-9) Eosinophils (%) (Auto) 0 % (0-3) Basophils (%) (Auto) 0 % (0-3) Neutrophils # (Auto) 13.7 x10^3/uL (1.8-7.7) H Lymphocytes # (Auto) 0.5 x10^3/uL (1.0-4.8) L Monocytes # (Auto) 0.5 x10^3/uL (0.0-1.1) Eosinophils # (Auto) 0.0 x10^3/uL (0.0-0.7) Basophils # (Auto) 0.0 x10^3/uL (0.0-0.2) Segmented Neutrophils % 90 % (35-66) H Band Neutrophils % 4 % (0-9) Lymphocytes % 4 % (24-48) L Monocytes % 2 % (0-10) Dohle Bodies Present Platelet Estimate Adequate (ADEQUATE) Large Platelets Few Anisocytosis Slight Sodium Level 138 mmol/L (136-145) Potassium Level 4.5 mmol/L (3.5-5.1) Chloride Level 99 mmol/L (98-107) Carbon Dioxide Level 36 mmol/L (21-32) H Anion Gap 3 (6-14) L Blood Urea Nitrogen 19 mg/dL (7-20) Creatinine 0.8 mg/dL (0.6-1.0) Estimated GFR (Cockcroft-Gault) 67.7 BUN/Creatinine Ratio 24 (6-20) H Glucose Level 135 mg/dL (70-99) H Lactic Acid Level 1.1 mmol/L (0.4-2.0) Calcium Level 8.9 mg/dL (8.5-10.1) Magnesium Level 2.1 mg/dL (1.8-2.4) Total Bilirubin 0.4 mg/dL (0.2-1.0) Aspartate Amino Transferase (AST) 19 U/L (15-37) Alanine Aminotransferase (ALT) 17 U/L (14-59) Alkaline Phosphatase 95 U/L (46-116) Troponin I Quantitative < 0.017 ng/mL (0.000-0.055) HT-Ofk-H-Type Natriuretic Peptide 2666 pg/mL (0-449) H Total Protein 7.8 g/dL (6.4-8.2) Albumin 3.2 g/dL (3.4-5.0) L Albumin/Globulin Ratio 0.7 (1.0-1.7) L Urine Collection Type Void Urine Color Yellow Urine Clarity Clear Urine pH 7.0 (<5.0-8.0) Urine Specific [place] 1.020 (1.000-1.030) Urine Protein 30 mg/dL (NEG-TRACE) Urine Glucose (UA) Negative mg/dL (NEG) Urine Ketones (Stick) Negative mg/dL (NEG) Urine Blood Negative (NEG) Urine Nitrite Positive (NEG) Urine Bilirubin Negative (NEG) Urine Urobilinogen Dipstick 0.2 mg/dL (0.2 mg/dL) Urine Leukocyte Esterase Moderate (NEG) Urine RBC Occ /HPF (0-2) Urine WBC 20-40 /HPF (0-4) Urine Squamous Epithelial Cells Few /LPF Urine Bacteria Many /HPF (0-FEW) Laboratory Tests 09/17/19 10:30 Laboratory Tests 09/17/19 10:30 Vital Signs: Vital Signs Date Time Temp Pulse Resp B/P (MAP) Pulse Ox O2 Delivery O2 Flow Rate FiO2 09/17/19 10:10 97.5 100 22 160/90 (113) 90 Nasal Cannula 3.0 97.5 EKG: EKG: [] Radiology/Procedures: Radiology/Procedures: [][facility] [address] [place] [address] IMAGING REPORT Signed PATIENT: SYBIL AUGUSTINE ACCOUNT: [id number] : 1930 LOCATION: ER AGE: 89 SEX: F EXAM STATUS: REG ER ORD. PHYSICIAN: DELMIS LAL DO REASON: SOA PROCEDURE: PORTABLE CHEST 1V Chest one view HISTORY: Shortness of breath Comparison July 15, 2019 FINDINGS: Dual lead left-sided pacemaker again seen in place. No radiographic lead disruption is apparent. Heart appears normal size. There is bilateral patchy alveolar and interstitial infiltrates present. Appears to be a small right pleural effusion. No pneumothorax. IMPRESSION: Bilateral alveolar and interstitial infiltrates and small right pleural effusion Electronically signed by: Yumiko Mehta MD (09/17/2019 11:34 AM) [id number] DICTATED and SIGNED BY: YUMIKO MEHTA MD DATE: 09/17/19 1134 Course & Med Decision Making: Course & Med Decision Making Pertinent Labs and Imaging studies reviewed. (See chart for details) Patient is an 89-year-old female who lives at home, presented with cough and trouble breathing. Patient was found to have bilateral lower lobe infiltration on chest x-ray, she also had evidence of urinary tract infection. Patient will be admitted to hospital for IV antibiotic. Discussed with Dr. Castelan who agrees to admit the patient. Angelina Disclaimer: Angelina Disclaimer: This electronic medical record was generated, in whole or in part, using a voice recognition dictation system. Departure Departure Impression: Primary Impression: CAP (community acquired pneumonia) Additional Impression: UTI (urinary tract infection) Disposition: ADMITTED INPATIENT Admitting Physician: Esau Castelan Condition: STABLE Referrals: ESAU CASTELAN MD (PCP) Justicifation of Admission Dx: Justifications for Admission: Justification of Admission Dx: Yes DELMIS LAL DO Sep 17, 2019 12:43
[2019-09-17] MEDS ORDERED: ONDANSETRON PF 4 MG/2 ML VIAL. IV PRN (14:45)
[2019-09-17 15:30] VITALS: BP 148/56
[2019-09-17] MEDS ORDERED: ZOLPIDEM 5 MG TABLET. PO PRN (16:30)
[2019-09-17] MEDS ORDERED: ALBUTEROL SULFATE 2.5 MG/3 ML NEBU. NEB PRN (16:30)
[2019-09-17] MEDS ORDERED: ACETAMINOPHEN 325 MG TABLET. PO PRN (16:30)
[2019-09-17] MEDS ORDERED: FUROSEMIDE 40 MG/4 ML VIAL. IVP ONE (16:30)
--- NOTE | 2019-09-17 16:54 | PDOC ---
Provider Note Provider Note history and physical dictated # [id number] Justicifation of Admission Dx: Justifications for Admission: Justification of Admission Dx: Yes KARAN KIMBLE MD Sep 17, 2019 16:54
[2019-09-17] MEDS: CARVEDILOL 6.25 MG TABLET. PO SCH (17:00)
--- NOTE | 2019-09-17 17:44 | HP ---
ADMIT DATE: 09/17/2019 LOCATION: She is in room 674. HISTORY OF PRESENT ILLNESS: The patient is an 89-year-old white female who has chronic diastolic congestive heart failure, wdlr-ro-xcouxpab mitral regurgitation, chronic hypoxic respiratory failure, maintained on oxygen continuously 2.5 liters per nasal cannula at home, moderate pulmonary hypertension, diabetes mellitus type 2 with peripheral neuropathy, treated with diet; hypertension, hyperlipidemia with statin intolerance, who has anemia of chronic disease, chronic obstructive pulmonary disease, nonobstructive coronary artery disease, fibromyalgia, who noted the onset of hoarseness and a cough productive of white sputum and some shortness of breath and hypoxia at home, as her oxygen saturations were in the low 80s. So, she increased her oxygen to 3 liters per nasal cannula and she has had her oxygen saturation improved to 90%. The patient sought help at the [facility] Emergency Room where she was noted to have an elevated BNP and had bilateral lung infiltrates as well as a leukocytosis with a white count of about 14.6. She was treated with IV Rocephin and Zithromax in the Emergency Room and subsequently admitted to the hospital. I discussed the patient's code status with her and she wishes to be a do not resuscitate, and she was lucid when she made the decision. She denies having any fevers, there has been no hemoptysis. She is therefore admitted for further evaluation of her acute on chronic diastolic congestive heart failure, suspect possible pneumonia and acute on chronic hypoxic respiratory failure. ALLERGIES: INCLUDE IV IODINE. MEDICATIONS: Prior to admission include Tylenol 650 mg every 6 hours p.r.n., albuterol nebulizer treatments every 4 hours p.r.n., alprazolam 0.5 mg b.i.d., amlodipine 10 mg every day, aspirin 81 mg every day, carvedilol 6.25 mg b.i.d., vitamin D 1000 units every day, Colace 100 mg b.i.d., fentanyl 12 mcg patch every 72 hours, furosemide 40 mg p.o. daily, [place] 5/325 one tablet t.i.d. p.r.n. severe pain, Protonix 40 mg every day, potassium chloride 20 mEq every day, Lyrica 50 mg b.i.d., Requip 1 mg t.i.d., sertraline 100 mg everyday, Ambien 5 mg at bedtime. PAST MEDICAL HISTORY: Significant for chronic diastolic congestive heart failure, bqvr-ai-tfdvjrre mitral stenosis. She had an echocardiogram done recently, which showed a preserved left ventricular ejection fraction with lcna-ds-zwfbhdlr mitral stenosis. She has a history of chronic hypoxic respiratory failure, moderate pulmonary hypertension, diabetes mellitus type 2 with peripheral neuropathy, treated with diet; hypertension, hyperlipidemia, statin intolerance, anemia of chronic disease, COPD, nonobstructive coronary artery disease, fibromyalgia and chronic pain. She has a history of gastroesophageal reflux disease. She had a dilatation of esophageal stricture in 2007, has a permanent pacemaker for sick sinus syndrome in 04/2017, had a cataract extraction, cholecystectomy, hysterectomy, right hip hemiarthroplasty for fracture in 09/2015, erosive gastritis in the past, fibromyalgia, chronic gout, lumbar spondylosis, bile-induced gastritis, cellulitis in the right leg in 2010, pneumonia in 2010, colon polyps in 2011. SOCIAL HISTORY: She does not drink alcohol nor does she smoke cigarettes, confined to bed and a wheelchair and she has caregivers at home. FAMILY HISTORY: Not contributory. REVIEW OF SYSTEMS: GENERAL: She denies any fever, chills or sweats in the last 3 days. CARDIOVASCULAR: No chest pain. PULMONARY: Shortness of breath and a cough and hoarseness. GASTROINTESTINAL: No constipation. ENDOCRINE: She has diabetes mellitus, treated with diet. SKIN: She has got a left heel wound treated at the [facility]. Rest of review of systems is unremarkable except as stated in history of present illness. PHYSICAL EXAMINATION: VITAL SIGNS: Temperature is 97.5 degrees, apical pulse is 104, respiratory rate 20, blood pressure 103/55, oxygen saturation 95% on 3 liters per nasal cannula. HEENT: Eyes: Gaze is conjugate. Mouth: Tongue is midline. NECK: There is no cervical lymphadenopathy. No thyroid enlargement. HEART: Reveals an S1, S2. There is no S3 or murmur. LUNGS: Reveal decreased breath sounds bilaterally. She had a few wheezes. ABDOMEN: Soft with no hepatosplenomegaly, masses or tenderness. EXTREMITIES: Lower extremities without edema. Examination of the left heel shows she does have a left heel wound with a pink base. Both feet are warm. NEUROLOGIC: Shows she has no focal weakness, no facial weakness and she got 4/5 hand trend investigator bilaterally. LABORATORY DATA: White count was 14.8; hemoglobin 8.3, similar to what it was before on hemoglobin; platelet count 180,000, 93 polys and 4 lymphocytes. She had a sodium 138, potassium 4.5, chloride 99, total CO2 of 36, BUN 19, creatinine 0.8, blood sugar 135. Lactic acid level is 1.1. Liver function tests normal. ProBNP was 2666. The albumin was 3.2. Urinalysis showed 20-40 white cells and occasional red cells. She had a chest x-ray, which showed bilateral alveolar interstitial infiltrates and a small right pleural effusion. Electrocardiogram showed normal sinus rhythm with left axis deviation. ASSESSMENT: 1. Acute on chronic diastolic congestive heart failure. 2. Damv-if-lhdrzdvy mitral stenosis. 3. Acute on chronic hypoxic respiratory failure. 4. Possible pneumonia. 5. Leukocytosis, unclear if that is from stress demargination or if that is from the infection. 6. Left heel wound. 7. Fibromyalgia. 8. Chronic obstructive pulmonary disease. 9. Diabetes mellitus type 2 with peripheral neuropathy, treated with diet. 10. Anemia of chronic disease. PLAN: At this time, is to consult Dr. Kurtis Lubin for Infectious Disease, Dr. Reed for Pulmonary and Dr. Hernandez for Cardiology. She is a do not resuscitate and discussed that with the nurse. We will give her Lasix 40 mg IV every now and 40 mg IV every morning. We will put her on telemetry. Oxygen saturation were likely in the low 80s just now, and to be placed on a facemask. We will check a CBC and BMP tomorrow. Put her on Lovenox at 30 mg subcutaneous for deep vein thrombosis prophylaxis. Continue IV Rocephin and Zithromax. Continue her oxygen and p.r.n. nebulizer treatments. We will resume her home medications. I will consult the wound care nurse and order heel protectors also. We will continue IV Rocephin and Zithromax. KARAN KIMBLE MD DR: KATHY/ben JOB#: [id number] / [id number]
--- NOTE | 2019-09-17 17:53 | CONS ---
DATE OF CONSULTATION: 09/17/2019 PULMONARY CONSULTATION ATTENDING PHYSICIAN: Esau Castelan MD REASON FOR CONSULTATION: Respiratory failure. HISTORY OF PRESENT ILLNESS: The patient is an 89-year-old female who has multiple medical problems including history of CAD, CHF, obesity, COPD and pneumonias in the past. She is normally on home oxygen at 3 liters on a 24-hour basis. She was brought into the hospital with increasing dyspnea and hypoxia. Oxygen saturations were in the 70s on arrival. She had a mild cough. No significant purulent sputum production, no fever, no chills, no chest pains. She is currently on oxygen via simple mask at 15 liters. I have reviewed the patient's chest x-ray was consistent with interstitial infiltrates favoring congestive heart failure. PAST MEDICAL HISTORY: Significant for arthritis, CAD, CHF, constipation, COPD, depression, type 2 diabetes, fibromyalgia, GERD, hypertension, pneumonia, UTI and neuropathy. PAST SURGICAL HISTORY: Appendectomy, cholecystectomy, hysterectomy, pacemaker and multiple other surgeries. ALLERGIES: IV DYE. MEDICATIONS: Reviewed as listed in the MRAD including antibiotics, diuretics, Lasix, Lovenox for DVT prophylaxis. REVIEW OF SYSTEMS: Done visually via telemedicine and 10-point system obtained. Pertinent positives discussed in my history of present illness, otherwise noncontributory. All systems that were negative were reviewed as well. SOCIAL HISTORY: She has past history of tobacco use. FAMILY HISTORY: Noncontributory to lungs. PHYSICAL EXAMINATION: VITAL SIGNS: She is afebrile, pulse ox is 99% on 15 liters via simple mask. GENERAL: Visual exam done via telemedicine due to COVID-19 suspicion. She appears comfortable, although requiring 15 liters oxygen via simple mask. SKIN: No obvious skin rash. EXTREMITIES: Leg with edema. LABORATORY DATA: Reviewed. White cell count 14.8, hemoglobin 8.3 and platelets are 180. BUN 19, creatinine 0.8. ProBNP is 2666. IMPRESSION: 1. Acute on chronic hypoxic respiratory failure secondary to congestive heart failure. 2. Acute on chronic diastolic heart failure. 3. Clinically, less likely pneumonia. 4. Abnormal chest x-ray with bilateral interstitial infiltrates suggestive of congestive heart failure. 5. No suspicion for COVID. RECOMMENDATIONS: 1. Continue present oxygen with gradual weaning to keep saturation 92 and above. 2. IV diuresis. 3. Follow chest x-ray as needed. 4. Obtain echocardiogram if it is not done in the last 6 months. 5. Monitor hemoglobin. Hemoglobin of 8.3 could be dilutional. 6. COVID-19 test pending. 7. DVT prophylaxis with Lovenox. 8. If clinically improves quickly then we will deescalate antibiotics. 9. Discussed with RN. Consultation done via telemedicine. YONI MALIK MD DR: EMILEE/ben JOB#: [id number] / [id number]
[2019-09-17] MEDS: fentaNYL 12MCG/HR PATCH 1 PATCH PATCH.TD72 TD SCH (18:37)
[2019-09-17 19:00] VITALS: BP 146/54
[2019-09-17] MEDS: ALPRAZolam 0.5 MG TABLET PO SCH (22:43)
[2019-09-17] MEDS: ENOXAPARIN 40 MG/0.4 ML SYRINGE. SQ SCH (22:43)
[2019-09-17] MEDS: DOCUSATE SODIUM 100 MG CAPSULE. PO SCH (22:43)
[2019-09-17] MEDS: rOPINIRole 0.25 MG TABLET. PO SCH (22:44)
[2019-09-17] MEDS: PREGABALIN 50 MG CAPSULE PO SCH (22:45)
[2019-09-17 23:00] VITALS: BP 135/54
[2019-09-18 04:38] LABS: BASO % 0 % (0-3); EOS % 0 % (0-3); HEMATOCRIT 25.5 % (36.0-47.0); HEMOGLOBIN 7.8 g/dL (12.0-15.5); LYMPH # 0.7 x10^3/uL (1.0-4.8); LYMPH % 7 % (24-48); MEAN CORPUSCULAR HEMOGLOBIN 22 pg (25-35); MEAN CORPUSCULAR HGB CONC 30 g/dL (31-37); MEAN CORPUSCULAR VOLUME 71 fL (79-100); MONO # 0.5 x10^3/uL (0.0-1.1); MONO % 5 % (0-9); NEUT # 9.1 x10^3/uL (1.8-7.7); NEUT % 89 % (31-73); PLATELET COUNT 158 x10^3/uL (140-400); RED BLOOD COUNT 3.57 x10^6/uL (3.50-5.40); RED CELL DISTRIBUTION WIDTH 17.3 % (11.5-14.5); WHITE BLOOD COUNT 10.3 x10^3/uL (4.0-11.0)
[2019-09-18 05:23] LABS: CALCIUM 8.4 mg/dL (8.5-10.1); CREATININE 0.9 mg/dL (0.6-1.0); GFR 59.1; MAGNESIUM 1.8 mg/dL (1.8-2.4); POTASSIUM 3.6 mmol/L (3.5-5.1)
[2019-09-18 07:30] VITALS: BP 137/91
[2019-09-18] MEDS ORDERED: POTASSIUM CHLORIDE 20 MEQ TABLET.ER. PO SCH (08:00)
--- NOTE | 2019-09-18 08:05 | PDOC2 ---
EMANUEL KELLEY WILDLIFE FORENSIC GENETICIST 09/18/19 0805: CARDIAC CONSULT DATE OF CONSULT Date of Consult DATE: 09/18/19 TIME: 07:53 REASON FOR CONSULT Reason for Consult: CHF REFERRING PHYSICIAN Referring Physician: Flip SOURCE Source: Chart review, Patient HISTORY OF PRESENT ILLNESS HISTORY OF PRESENT ILLNESS This is an 89 yo female admitted for complains of shortness of breath. Reports of SOA since Monday despite O2. She uses 3LPM at home and has been taking lasix every other day. She has been coughing but no significant leg swelling but has been complaining of leg pains. She lives alone and gets 24 hour care. Reports that her BP is controlled at home. No nausea or vomiting. No chest pain. Complains of weakness and actually had a nontraumatic fall the other night. Had some chills. Verbalized compliance with meds. PAST MEDICAL HISTORY Past Medical History Cardiovascular: CHF, HTN, Syncope, Hyperlipidemia, Other (SSS/CSH), coronary calcifications Pulmonary: COPD, Pneumonia, Other (BOOP) CENTRAL NERVOUS SYSTEM: Peripheral neuropathy GI: Constipation, GERD, Hemorrhoids, Presbyesophagus, gastric polyp Heme/Onc: Anemia NOS Psych: Anxiety Musculoskeletal: Osteoarthritis Rheumatologic: Fibromyalgia, RA Infectious disease: No pertinent hx Renal/: UTI Endocrine: Diabetes (2), CKD2 PAST SURGICAL HISTORY Past Surgical History Pacemaker ([employer]), Total hip replacement (right), Other (colon polypectomy; lumbar laminectomy) FAMILY HISTORY Family History: Heart Disease SOCIAL HISTORY Smoke: No ALCOHOL: none Drugs: None Lives: Alone CURRENT MEDICATIONS CURRENT MEDICATIONS Current Medications Medications (Trade) Dose Ordered Sig/Lindsey Route PRN Reason Start Time Stop Time Status Last Admin Dose Admin Ceftriaxone Sodium (Rocephin) 1 gm 1X ONCE IVP 09/17/19 12:15 09/17/19 12:16 DC 09/17/19 12:33 Azithromycin 250 ml @ 250 mls/hr 1X ONCE IV 09/17/19 12:15 09/17/19 13:14 DC 09/17/19 12:33 Furosemide (Lasix) 40 mg 1X ONCE IVP 09/17/19 16:30 09/17/19 16:58 DC 09/17/19 18:36 Alprazolam (Xanax) 0.5 mg BID PO 09/17/19 21:00 09/17/19 22:43 Docusate Sodium (Colace) 100 mg BID PO 09/17/19 21:00 09/17/19 22:43 Fentanyl (Duragesic 12mcg/ Hr Patch) 1 patch Q3DAYS TD 09/17/19 17:00 09/17/19 18:37 Ropinirole HCl (Requip) 1 mg TID PO 09/17/19 21:00 09/17/19 22:44 Pregabalin (Lyrica) 50 mg BID PO 09/17/19 21:00 09/17/19 22:45 Enoxaparin Sodium (Lovenox 40mg Syringe) 40 mg Q24H SQ 09/17/19 21:00 09/17/19 22:43 ALLERGIES ALLERGIES: Coded Allergies: Iodinated Contrast Media (Verified Allergy, Intermediate, ITCH, 08/05/19) ROS Review of System 14 point ROS evaluated with pertinent positives noted per HPI PHYSICAL EXAM PHYSICAL EXAM Discussed exam with RN General: Alert, Oriented X3, Cooperative, mild distress HEENT: Atraumatic Lungs: Other (diminished) Heart: Regular rate (V paced) Abdomen: Soft Extremities: No cyanosis Skin: No rashes Neuro: Normal speech, Sensation intact Psych/Mental Status: Mental status NL, Other (anxious) MUSCULOSKELETAL: Osteoarthritic changes both hands VITALS/I&O VITALS/I&O: Vital Signs Date Time Temp Pulse Resp B/P (MAP) Pulse Ox O2 Delivery O2 Flow Rate FiO2 09/17/19 23:00 98.9 107 17 135/54 (81) 92 Nasal Cannula 3.0 98.9 I & O 09/17/19 09/17/19 09/18/19 15:00 23:00 07:00 Intake Total 250 ml 100 ml 100 ml Output Total 975 ml Balance 250 ml 100 ml -875 ml LABS Lab: Laboratory Tests Test 09/17/19 10:30 09/17/19 11:40 09/17/19 22:42 09/18/19 04:20 White Blood Count 14.8 x10^3/uL (4.0-11.0) H 10.3 x10^3/uL (4.0-11.0) Red Blood Count 3.91 x10^6/uL (3.50-5.40) 3.57 x10^6/uL (3.50-5.40) Hemoglobin 8.3 g/dL (12.0-15.5) L 7.8 g/dL (12.0-15.5) L Hematocrit 28.1 % (36.0-47.0) L 25.5 % (36.0-47.0) L Mean Corpuscular Volume 72 fL (79-100) L 71 fL (79-100) L Mean Corpuscular Hemoglobin 21 pg (25-35) L 22 pg (25-35) L Mean Corpuscular Hemoglobin Concent 30 g/dL (31-37) L 30 g/dL (31-37) L Red Cell Distribution Width 17.3 % (11.5-14.5) H 17.3 % (11.5-14.5) H Platelet Count 180 x10^3/uL (140-400) 158 x10^3/uL (140-400) Neutrophils (%) (Auto) 93 % (31-73) H 89 % (31-73) H Lymphocytes (%) (Auto) 4 % (24-48) L 7 % (24-48) L Monocytes (%) (Auto) 4 % (0-9) 5 % (0-9) Eosinophils (%) (Auto) 0 % (0-3) 0 % (0-3) Basophils (%) (Auto) 0 % (0-3) 0 % (0-3) Neutrophils # (Auto) 13.7 x10^3/uL (1.8-7.7) H 9.1 x10^3/uL (1.8-7.7) H Lymphocytes # (Auto) 0.5 x10^3/uL (1.0-4.8) L 0.7 x10^3/uL (1.0-4.8) L Monocytes # (Auto) 0.5 x10^3/uL (0.0-1.1) 0.5 x10^3/uL (0.0-1.1) Eosinophils # (Auto) 0.0 x10^3/uL (0.0-0.7) 0.0 x10^3/uL (0.0-0.7) Basophils # (Auto) 0.0 x10^3/uL (0.0-0.2) 0.0 x10^3/uL (0.0-0.2) Segmented Neutrophils % 90 % (35-66) H Band Neutrophils % 4 % (0-9) Lymphocytes % 4 % (24-48) L Monocytes % 2 % (0-10) Dohle Bodies Present Platelet Estimate Adequate (ADEQUATE) Large Platelets Few Anisocytosis Slight Sodium Level 138 mmol/L (136-145) 139 mmol/L (136-145) Potassium Level 4.5 mmol/L (3.5-5.1) 3.6 mmol/L (3.5-5.1) Chloride Level 99 mmol/L (98-107) 97 mmol/L (98-107) L Carbon Dioxide Level 36 mmol/L (21-32) H 38 mmol/L (21-32) H Anion Gap 3 (6-14) L 4 (6-14) L Blood Urea Nitrogen 19 mg/dL (7-20) 17 mg/dL (7-20) Creatinine 0.8 mg/dL (0.6-1.0) 0.9 mg/dL (0.6-1.0) Estimated GFR (Cockcroft-Gault) 67.7 59.1 BUN/Creatinine Ratio 24 (6-20) H Glucose Level 135 mg/dL (70-99) H 115 mg/dL (70-99) H Lactic Acid Level 1.1 mmol/L (0.4-2.0) Calcium Level 8.9 mg/dL (8.5-10.1) 8.4 mg/dL (8.5-10.1) L Magnesium Level 2.1 mg/dL (1.8-2.4) 1.8 mg/dL (1.8-2.4) Total Bilirubin 0.4 mg/dL (0.2-1.0) Aspartate Amino Transferase (AST) 19 U/L (15-37) Alanine Aminotransferase (ALT) 17 U/L (14-59) Alkaline Phosphatase 95 U/L (46-116) Troponin I Quantitative < 0.017 ng/mL (0.000-0.055) SN-Itb-O-Type Natriuretic Peptide 2666 pg/mL (0-449) H Total Protein 7.8 g/dL (6.4-8.2) Albumin 3.2 g/dL (3.4-5.0) L Albumin/Globulin Ratio 0.7 (1.0-1.7) L Urine Collection Type Void Urine Color Yellow Urine Clarity Clear Urine pH 7.0 (<5.0-8.0) Urine Specific [place] 1.020 (1.000-1.030) Urine Protein 30 mg/dL (NEG-TRACE) Urine Glucose (UA) Negative mg/dL (NEG) Urine Ketones (Stick) Negative mg/dL (NEG) Urine Blood Negative (NEG) Urine Nitrite Positive (NEG) Urine Bilirubin Negative (NEG) Urine Urobilinogen Dipstick 0.2 mg/dL (0.2 mg/dL) Urine Leukocyte Esterase Moderate (NEG) Urine RBC Occ /HPF (0-2) Urine WBC 20-40 /HPF (0-4) Urine Squamous Epithelial Cells Few /LPF Urine Bacteria Many /HPF (0-FEW) Glucose (Fingerstick) 121 mg/dL (70-99) H Test 09/18/19 07:45 Glucose (Fingerstick) 110 mg/dL (70-99) H Laboratory Tests 09/17/19 10:30 09/18/19 04:20 Laboratory Tests 09/17/19 10:30 09/18/19 04:20 ECHOCARDIOGRAM ECHOCARDIOGRAM <Conclusion> The left ventricle is normal size. The left ventricular systolic function is normal and the ejection fraction is within normal range. The Ejection Fraction is 50-55%. There is moderate concentric left ventricular hypertrophy. The aortic valve is calcified but opens well. There is mild to moderate mitral valve stenosis with maximum pressure gradient of 8 mmHg and mean pressure gradient of 4 mmHg. Doppler and Color-flow revealed trace to mild mitral regurgitation. Doppler and Color Flow revealed mild tricuspid regurgitation. The PA pressure was estimated at 54 mmHg. DATE: 07/14/19 1147 HEART CATH HEART CATH FINDINGS 1. Hemodynamics: Left ventricular end-diastolic pressure of 6 mmHg. No pullback gradient across the aortic valve. 2. Coronary angiography: a. The left main coronary artery arose from the left sinus of Valsalva, gave rise to the left anterior descending and left circumflex arteries and did not show any significant stenosis. b. The left anterior descending artery did not show any significant stenosis. c. The left circumflex artery did not show any significant stenosis. d. The right coronary artery was a large and dominant vessel arising from the right sinus of Valsalva that showed 50-60% stenosis in the proximal segment that was physiologically insignificant based on FFR measurement. Conclusion Nonobstructive coronary artery disease involving right coronary artery, proved physiologically insignificant with IFR measurement. Recommendations Medical Therapy DATE: 01/22/19 1155 ASSESSMENT/PLAN ASSESSMENT/PLAN 1. Acute on chronic diastolic CHF: recent EF and WM nml 2. CAD: moderate lesion to RCA 01/2019 [facility] 3. Moderate mitral stenosis 4. COPD 5. HTN: mildly labile 6. HLP 7. PPM with SSS: [employer]. Vpaced 8. Microcytic hypochromic anemia 9. UTI/leukocytosis/fever 10. Nontraumatic mechanical fall: tripped, no syncope 11. PUI 12. Leg pain: possibly from fall negative DVT venous doppler. per PCP Recommendations 1. Lasix therapy. Will check device and note any arrhythmia and LE arterial duplex if negative for covid 2. Statin allergy. Consider PCSK9i for HLP/CAD 3. Secondary prevention measures 4. Continue home BP regimen and will adjust per trend 5. Pt has failed to follow up in office. Discussed compliance. Given her refractory CHF episodes will plan for outpt MPI. 6. Antibiotic treatment per ID. GOLDIE HENRY MD 09/18/19 2113: CARDIAC CONSULT ASSESSMENT/PLAN ASSESSMENT/PLAN Patient seen and examined. Agree with DIESEL ENGINE MECHANIC's assessment and plan. Continue diuresis for ac on chr diastolic HF Tele did not show any a=significant arrhythmias CAD status stable clinically Covid test pending Recent 2D echo showed normal LVF Thank you for your consultation EMANUEL KELLEY APRN Sep 18, 2019 08:05 GOLDIE HENRY MD Sep 18, 2019 21:13
--- NOTE | 2019-09-18 08:37 | PDOC ---
PULMONARY PROGRESS NOTES DATE: 09/18/19 TIME: 08:36 Subjective Pt. is resting on 2 liters N/C, low grade fever this am, weak no other concerns from nursing Vitals Vital Signs Date Time Temp Pulse Resp B/P (MAP) Pulse Ox O2 Delivery O2 Flow Rate FiO2 09/17/19 23:00 98.9 107 17 135/54 (81) 92 Nasal Cannula 3.0 98.9 ROS: No Nausea, No Chest Pain, No Abdominal Pain, No Increase Cough General: Alert, Oriented X4 Lungs: Clear Cardiovascular: S1, S2 Abdomen: Soft, Non-tender Neuro Exam: Alert Extremities: No Edema Skin: Warm, Dry Labs Laboratory Tests Test 09/17/19 10:30 09/17/19 11:40 09/17/19 22:42 09/18/19 04:20 White Blood Count 14.8 x10^3/uL (4.0-11.0) 10.3 x10^3/uL (4.0-11.0) Red Blood Count 3.91 x10^6/uL (3.50-5.40) 3.57 x10^6/uL (3.50-5.40) Hemoglobin 8.3 g/dL (12.0-15.5) 7.8 g/dL (12.0-15.5) Hematocrit 28.1 % (36.0-47.0) 25.5 % (36.0-47.0) Mean Corpuscular Volume 72 fL (79-100) 71 fL (79-100) Mean Corpuscular Hemoglobin 21 pg (25-35) 22 pg (25-35) Mean Corpuscular Hemoglobin Concent 30 g/dL (31-37) 30 g/dL (31-37) Red Cell Distribution Width 17.3 % (11.5-14.5) 17.3 % (11.5-14.5) Platelet Count 180 x10^3/uL (140-400) 158 x10^3/uL (140-400) Neutrophils (%) (Auto) 93 % (31-73) 89 % (31-73) Lymphocytes (%) (Auto) 4 % (24-48) 7 % (24-48) Monocytes (%) (Auto) 4 % (0-9) 5 % (0-9) Eosinophils (%) (Auto) 0 % (0-3) 0 % (0-3) Basophils (%) (Auto) 0 % (0-3) 0 % (0-3) Neutrophils # (Auto) 13.7 x10^3/uL (1.8-7.7) 9.1 x10^3/uL (1.8-7.7) Lymphocytes # (Auto) 0.5 x10^3/uL (1.0-4.8) 0.7 x10^3/uL (1.0-4.8) Monocytes # (Auto) 0.5 x10^3/uL (0.0-1.1) 0.5 x10^3/uL (0.0-1.1) Eosinophils # (Auto) 0.0 x10^3/uL (0.0-0.7) 0.0 x10^3/uL (0.0-0.7) Basophils # (Auto) 0.0 x10^3/uL (0.0-0.2) 0.0 x10^3/uL (0.0-0.2) Segmented Neutrophils % 90 % (35-66) Band Neutrophils % 4 % (0-9) Lymphocytes % 4 % (24-48) Monocytes % 2 % (0-10) Dohle Bodies Present Platelet Estimate Adequate (ADEQUATE) Large Platelets Few Anisocytosis Slight Sodium Level 138 mmol/L (136-145) 139 mmol/L (136-145) Potassium Level 4.5 mmol/L (3.5-5.1) 3.6 mmol/L (3.5-5.1) Chloride Level 99 mmol/L (98-107) 97 mmol/L (98-107) Carbon Dioxide Level 36 mmol/L (21-32) 38 mmol/L (21-32) Anion Gap 3 (6-14) 4 (6-14) Blood Urea Nitrogen 19 mg/dL (7-20) 17 mg/dL (7-20) Creatinine 0.8 mg/dL (0.6-1.0) 0.9 mg/dL (0.6-1.0) Estimated GFR (Cockcroft-Gault) 67.7 59.1 BUN/Creatinine Ratio 24 (6-20) Glucose Level 135 mg/dL (70-99) 115 mg/dL (70-99) Lactic Acid Level 1.1 mmol/L (0.4-2.0) Calcium Level 8.9 mg/dL (8.5-10.1) 8.4 mg/dL (8.5-10.1) Magnesium Level 2.1 mg/dL (1.8-2.4) 1.8 mg/dL (1.8-2.4) Total Bilirubin 0.4 mg/dL (0.2-1.0) Aspartate Amino Transf (AST/SGOT) 19 U/L (15-37) Alanine Aminotransferase (ALT/SGPT) 17 U/L (14-59) Alkaline Phosphatase 95 U/L (46-116) Troponin I Quantitative < 0.017 ng/mL (0.000-0.055) BX-Hre-S-Type Natriuretic Peptide 2666 pg/mL (0-449) Total Protein 7.8 g/dL (6.4-8.2) Albumin 3.2 g/dL (3.4-5.0) Albumin/Globulin Ratio 0.7 (1.0-1.7) Urine Collection Type Void Urine Color Yellow Urine Clarity Clear Urine pH 7.0 (<5.0-8.0) Urine Specific Rebecca 1.020 (1.000-1.030) Urine Protein 30 mg/dL (NEG-TRACE) Urine Glucose (UA) Negative mg/dL (NEG) Urine Ketones (Stick) Negative mg/dL (NEG) Urine Blood Negative (NEG) Urine Nitrite Positive (NEG) Urine Bilirubin Negative (NEG) Urine Urobilinogen Dipstick 0.2 mg/dL (0.2 mg/dL) Urine Leukocyte Esterase Moderate (NEG) Urine RBC Occ /HPF (0-2) Urine WBC 20-40 /HPF (0-4) Urine Squamous Epithelial Cells Few /LPF Urine Bacteria Many /HPF (0-FEW) Glucose (Fingerstick) 121 mg/dL (70-99) Test 09/18/19 07:45 Glucose (Fingerstick) 110 mg/dL (70-99) Laboratory Tests Test 09/17/19 10:30 09/17/19 11:40 09/17/19 22:42 09/18/19 04:20 White Blood Count 14.8 x10^3/uL (4.0-11.0) 10.3 x10^3/uL (4.0-11.0) Red Blood Count 3.91 x10^6/uL (3.50-5.40) 3.57 x10^6/uL (3.50-5.40) Hemoglobin 8.3 g/dL (12.0-15.5) 7.8 g/dL (12.0-15.5) Hematocrit 28.1 % (36.0-47.0) 25.5 % (36.0-47.0) Mean Corpuscular Volume 72 fL (79-100) 71 fL (79-100) Mean Corpuscular Hemoglobin 21 pg (25-35) 22 pg (25-35) Mean Corpuscular Hemoglobin Concent 30 g/dL (31-37) 30 g/dL (31-37) Red Cell Distribution Width 17.3 % (11.5-14.5) 17.3 % (11.5-14.5) Platelet Count 180 x10^3/uL (140-400) 158 x10^3/uL (140-400) Neutrophils (%) (Auto) 93 % (31-73) 89 % (31-73) Lymphocytes (%) (Auto) 4 % (24-48) 7 % (24-48) Monocytes (%) (Auto) 4 % (0-9) 5 % (0-9) Eosinophils (%) (Auto) 0 % (0-3) 0 % (0-3) Basophils (%) (Auto) 0 % (0-3) 0 % (0-3) Neutrophils # (Auto) 13.7 x10^3/uL (1.8-7.7) 9.1 x10^3/uL (1.8-7.7) Lymphocytes # (Auto) 0.5 x10^3/uL (1.0-4.8) 0.7 x10^3/uL (1.0-4.8) Monocytes # (Auto) 0.5 x10^3/uL (0.0-1.1) 0.5 x10^3/uL (0.0-1.1) Eosinophils # (Auto) 0.0 x10^3/uL (0.0-0.7) 0.0 x10^3/uL (0.0-0.7) Basophils # (Auto) 0.0 x10^3/uL (0.0-0.2) 0.0 x10^3/uL (0.0-0.2) Segmented Neutrophils % 90 % (35-66) Band Neutrophils % 4 % (0-9) Lymphocytes % 4 % (24-48) Monocytes % 2 % (0-10) Dohle Bodies Present Platelet Estimate Adequate (ADEQUATE) Large Platelets Few Anisocytosis Slight Sodium Level 138 mmol/L (136-145) 139 mmol/L (136-145) Potassium Level 4.5 mmol/L (3.5-5.1) 3.6 mmol/L (3.5-5.1) Chloride Level 99 mmol/L (98-107) 97 mmol/L (98-107) Carbon Dioxide Level 36 mmol/L (21-32) 38 mmol/L (21-32) Anion Gap 3 (6-14) 4 (6-14) Blood Urea Nitrogen 19 mg/dL (7-20) 17 mg/dL (7-20) Creatinine 0.8 mg/dL (0.6-1.0) 0.9 mg/dL (0.6-1.0) Estimated GFR (Cockcroft-Gault) 67.7 59.1 BUN/Creatinine Ratio 24 (6-20) Glucose Level 135 mg/dL (70-99) 115 mg/dL (70-99) Lactic Acid Level 1.1 mmol/L (0.4-2.0) Calcium Level 8.9 mg/dL (8.5-10.1) 8.4 mg/dL (8.5-10.1) Magnesium Level 2.1 mg/dL (1.8-2.4) 1.8 mg/dL (1.8-2.4) Total Bilirubin 0.4 mg/dL (0.2-1.0) Aspartate Amino Transf (AST/SGOT) 19 U/L (15-37) Alanine Aminotransferase (ALT/SGPT) 17 U/L (14-59) Alkaline Phosphatase 95 U/L (46-116) Troponin I Quantitative < 0.017 ng/mL (0.000-0.055) XH-Qbm-I-Type Natriuretic Peptide 2666 pg/mL (0-449) Total Protein 7.8 g/dL (6.4-8.2) Albumin 3.2 g/dL (3.4-5.0) Albumin/Globulin Ratio 0.7 (1.0-1.7) Urine Collection Type Void Urine Color Yellow Urine Clarity Clear Urine pH 7.0 (<5.0-8.0) Urine Specific Rebecca 1.020 (1.000-1.030) Urine Protein 30 mg/dL (NEG-TRACE) Urine Glucose (UA) Negative mg/dL (NEG) Urine Ketones (Stick) Negative mg/dL (NEG) Urine Blood Negative (NEG) Urine Nitrite Positive (NEG) Urine Bilirubin Negative (NEG) Urine Urobilinogen Dipstick 0.2 mg/dL (0.2 mg/dL) Urine Leukocyte Esterase Moderate (NEG) Urine RBC Occ /HPF (0-2) Urine WBC 20-40 /HPF (0-4) Urine Squamous Epithelial Cells Few /LPF Urine Bacteria Many /HPF (0-FEW) Glucose (Fingerstick) 121 mg/dL (70-99) Test 09/18/19 07:45 Glucose (Fingerstick) 110 mg/dL (70-99) Medications Active Scripts Medications Dose Route/Sig Max Daily Dose Days Date Category Aspirin 81 Mg Tab.chew 81 Mg PO DAILY 07/15/19 Rx Furosemide 40 Mg Tablet 40 Mg PO DAILY 07/15/19 Rx Klor-Con M20 (Potassium Chloride) 20 Meq Tab.er.prt 20 Meq PO DAILYWBKFT 07/15/19 Rx Ropinirole Hcl 1 Mg Tablet 1 Mg PO TID 07/15/19 Rx Ambien (Zolpidem Tartrate) 5 Mg Tablet 5 Mg PO QHS 07/15/19 Rx Alprazolam 0.5 Mg Tablet 0.5 Mg PO BID 07/15/19 Rx FENTANYL 12mcg/hr (Fentanyl) 1 Each Patch.td72 1 Patch TP Q3DAYS 01/23/19 Rx Lyrica (Pregabalin) 50 Mg Capsule 1 Cap PO BID 01/23/19 Rx Pantoprazole Sodium (Pantoprazole Sodium) 40 Mg Tablet.dr 40 Mg PO DAILY 01/13/19 Rx Sertraline Hcl 50 Mg Tablet 50 Mg PO DAILY 01/13/19 Rx Amlodipine Besylate 10 Mg Tablet 10 Mg PO DAILY 01/13/19 Rx Carvedilol (Carvedilol) 6.25 Mg Tablet 6.25 Mg PO BIDWMEALS 01/13/19 Rx Hydrocodone-Apap 5-325 (Hydrocodone Bit/Acetaminophen) 1 Tab Tablet 1 Tab PO PRN Q8HRS PRN 01/13/19 Rx Duoneb 0.5-3(2.5) Mg/3 Ml (Albuterol/Ipratropium) 3 Ml Ampul.neb 3 Ml NEB PRN Q4HRS PRN 03/13/18 Reported Vitamin D (Cholecalciferol (Vitamin D3)) 1,000 Unit Capsule 1 Cap PO DAILY 06/24/17 Reported Multi-Day Vitamins (Multivitamin) 1 Each Tablet 1 Tab PO DAILY 01/18/16 Reported Comments CXR IMPRESSION: Bilateral alveolar and interstitial infiltrates and small right pleural effusio Impression . IMPRESSION: 1. Acute on chronic hypoxic respiratory failure secondary to congestive heart failure. 2. Acute on chronic diastolic heart failure. 3. Clinically, less likely pneumonia. 4. Abnormal chest x-ray with bilateral interstitial infiltrates suggestive of congestive heart failure. 5. No suspicion for COVID. Plan . RECOMMENDATIONS: 1. Continue present oxygen with gradual weaning to keep saturation 92 2. IV diuresis. 3. Follow chest x-ray as needed. 4. Follow cardiology recs -- EF was 55% in 2019 5. Monitor hemoglobin 6. COVID-19 test pending. 7. DVT prophylaxis with Lovenox. 8. Continue antibiotics 9. Discussed with RN. DNR YONI MALIK MD Sep 18, 2019 08:37
[2019-09-18] MEDS ORDERED: FUROSEMIDE 40 MG/4 ML VIAL. IVP SCH (09:00)
[2019-09-18] MEDS ORDERED: amLODIPine BESYLATE 5 MG TABLET PO SCH (09:00)
[2019-09-18 10:01] LABS: CHOLESTEROL/HDL RATIO 2.4
[2019-09-18] MEDS: PANTOPRAZOLE 40 MG TABLET.DR. PO SCH (10:16)
[2019-09-18] MEDS: ENOXAPARIN 40 MG/0.4 ML SYRINGE. SQ SCH (10:16)
[2019-09-18] MEDS: PREGABALIN 50 MG CAPSULE PO SCH ×2 (10:16→23:08)
[2019-09-18] MEDS: CHOLECALCIFEROL (VITAMIN D3) 1,000 UNIT TABLET PO SCH (10:16)
[2019-09-18] MEDS: ALPRAZolam 0.5 MG TABLET PO SCH ×2 (10:16→23:09)
[2019-09-18] MEDS: rOPINIRole 0.25 MG TABLET. PO SCH (10:16)
[2019-09-18] MEDS: CARVEDILOL 6.25 MG TABLET. PO SCH (10:17)
[2019-09-18] MEDS: ASPIRIN ENTERIC COATED 81 MG TABLET.DR. PO SCH (10:17)
[2019-09-18] MEDS: SERTRALINE 50 MG TABLET. PO SCH (10:17)
[2019-09-18] MEDS: MULTIVITAMIN with MINERAL TABLET. PO SCH (10:17)
[2019-09-18] MEDS: DOCUSATE SODIUM 100 MG CAPSULE. PO SCH (10:17)
[2019-09-18 11:00] VITALS: BP 87/41
[2019-09-18] MEDS ORDERED: AZITHROMYCIN 250 MG TABLET. PO SCH (12:00)
--- NOTE | 2019-09-18 13:11 | CONS ---
DATE OF CONSULTATION: 09/18/2019 REFERRING PHYSICIAN: Dr. Castelan. REASON FOR CONSULTATION: Antibiotic management. HISTORY OF PRESENT ILLNESS: An 89-year-old female with history of chronic diastolic congestive heart failure, chronic hypoxic respiratory failure, on home O2, moderate pulmonary hypertension, diabetes, peripheral neuropathy, hypertension, hyperlipidemia, anemia of chronic disease, coronary artery disease, fibromyalgia, who was brought to [facility] with cough, shortness of breath, worsening hypoxia. Labs revealed WBC of 14.6, elevated BNP. Chest x-ray revealed bilateral lung infiltrate. She was started on IV Rocephin and Zithromax. Today, the patient states she feels a little better, still very achy all over. Shortness of breath has improved. Cough is improving. Denies any nausea, vomiting, diarrhea, abdominal pain. PAST MEDICAL HISTORY: Coronary artery disease, CHF, constipation, COPD, home O2, depression, type 2 diabetes, fibromyalgia, GERD, hypertension, history of UTI, neuropathy. PAST SURGICAL HISTORY: Appendectomy, cholecystectomy, hysterectomy, pacemaker and other surgeries. ALLERGIES: IV DYE. CURRENT MEDICATION: IV Rocephin and azithromycin. Other medications reviewed in [facility]. REVIEW OF SYSTEMS: Negative except for above in HPI. SOCIAL HISTORY: No smoking, quit a long time back. No alcohol. FAMILY HISTORY: As per HPI. PHYSICAL EXAMINATION: VITAL SIGNS: Temperature 99.9, pulse 99, respiratory rate 20, blood pressure 131/91, oxygen saturation 96% on 3 liters by nasal cannula. GENERAL: Alert, awake female, somewhat tired, lying in bed comfortably, in no acute distress. HEENT: Normocephalic, atraumatic, anicteric. No thrush. Oral mucosa moist. NECK: Supple, no JVD. LUNGS: Clear bilaterally except for decreased breath sound at the bases. No wheezing. No accessory muscle use. HEART: S1, S2. ABDOMEN: Soft, nontender, nondistended. GENITOURINARY: Gray in place. EXTREMITIES: No edema, no cyanosis. Left heel has a wound superficial. No purulence. NEUROLOGIC: Alert, awake. Some weakness. PSYCHIATRIC: Cooperative. LABORATORY DATA: WBC 14.8, is 10.3, hemoglobin 8.3, now 7.8, platelets 158. Chemistry: Sodium 138, potassium 4.5, chloride 99, bicarbonate 36, BUN 19, creatinine 0.8, glucose 121, lactate 1.1. BNP 2666. Troponin normal. UA shows 20-40 wbc's, leukocyte esterase moderate. COVID-19 pending. IMAGING: Chest x-ray shows bilateral alveolar interstitial infiltrate and small right pleural effusion. MICROBIOLOGY: Blood culture and urine culture pending. IMPRESSION: 1. Febrile illness. 2. Leukocytosis. 3. Urinary tract infection. 4. Congestive heart failure. 5. Acute hypoxic respiratory failure secondary to congestive heart failure. 6. Anemia. 7. Diabetes mellitus 2. 8. Fibromyalgia. 9. Generalized weakness. 10. COVID suspect. RECOMMENDATIONS: 1. Discontinue azithromycin. 2. Continue Rocephin. 3. Follow up urine and blood cultures. 4. Maintain aspiration precaution. 5. Follow up COVID 19 6. Continue supportive care. Thank you, Dr. Castelan, for consulting Infectious Disease to participate in this patient's care. If you have any questions, do not hesitate to contact me. EUSEBIO DARLING MD DR: ISELA/ben JOB#: [id number] / [id number] RUSSELL
[2019-09-18] MEDS: cefTRIAXone IV Push 1 GM VIAL. IVP SCH (13:18)
--- NOTE | 2019-09-18 14:27 | RAD ---
INDICATION: Reason: bilateral leg pain / Spl. Instructions: / History: COMPARISON: None. TECHNIQUE: Grayscale, color and doppler ultrasound images were obtained of the bilateral lower extremity venous vasculature. RIGHT: No thrombus identified in the common femoral vein, femoral vein, popliteal vein or visualized calf veins. LEFT: No thrombus identified in the common femoral vein, femoral vein, popliteal vein or visualized calf veins. IMPRESSION: * No thrombus identified in deep venous system of bilateral lower extremities. Electronically signed by: Jaiden Haq MD (09/18/2019 2:24 PM) [id number]
[2019-09-18 15:00] VITALS: BP 104/49
[2019-09-18] MEDS: ASCORBIC ACID 500 MG TABLET PO SCH ×2 (15:53→23:08)
[2019-09-18] MEDS: rOPINIRole 1 MG TABLET. PO SCH ×2 (16:32→23:09)
--- NOTE | 2019-09-18 17:07 | PDOC ---
PROGRESS NOTES Date of Service DATE: 09/18/19 TIME: 17:02 Subjective Subjective covid 19 not detected. lab reviewed,. has esophageal dysphagia., not eating well. feels better,. not short of breath. venous doppler bilat LE neg for DVT. bp on low side. constipated Objective Objective Vital Signs Date Time Temp Pulse Resp B/P (MAP) Pulse Ox O2 Delivery O2 Flow Rate FiO2 09/18/19 15:00 98.5 83 18 104/49 (67) 91 Nasal Cannula 3.0 98.5 Intake and Output 09/18/19 07:00 Intake Total 450 ml Output Total 975 ml Balance -525 ml Intake Oral 200 ml IV Total 250 ml Output Urine Total 975 ml Physical Exam Abdomen: Soft Heart: Regular rate, Normal S1, Normal S2 Extremities: No edema General: Alert HEENT: Atraumatic Lungs: Other (few crackles in bases) Neuro: Normal speech Psych/Mental Status: Mental status NL Skin: No rashes Assessment Assessment Problems1. Acute on chronic diastolic congestive heart failure. 2. Nfwe-un-igtulzda mitral stenosis. 3. Acute on chronic hypoxic respiratory failure. 4. Possible pneumonia. 5. Leukocytosis resolved 6. Left heel wound. 7. Fibromyalgia. 8. Chronic obstructive pulmonary disease. 9. Diabetes mellitus type 2 with peripheral neuropathy, treated with diet. 10. Anemia of chronic disease. esophageal dysphagia constipation Medical Problems: (1) CAP (community acquired pneumonia) Status: Acute (2) UTI (urinary tract infection) Status: Acute Plan Plan of Care continue iv lasix continue iv rocephin and zithromax d/c amlodipine and decrease carvedilol lactulose today d/c colace start senna-s consult dr alexander increase kcl continue protonix continue lovenox for dvt prophylaxis Comment Review of Relevant I have reviewed the following items lizbeth (where applicable) has been applied. Labs Laboratory Tests Test 09/17/19 10:30 09/17/19 11:40 09/17/19 13:06 09/17/19 22:42 White Blood Count 14.8 x10^3/uL (4.0-11.0) Red Blood Count 3.91 x10^6/uL (3.50-5.40) Hemoglobin 8.3 g/dL (12.0-15.5) Hematocrit 28.1 % (36.0-47.0) Mean Corpuscular Volume 72 fL (79-100) Mean Corpuscular Hemoglobin 21 pg (25-35) Mean Corpuscular Hemoglobin Concent 30 g/dL (31-37) Red Cell Distribution Width 17.3 % (11.5-14.5) Platelet Count 180 x10^3/uL (140-400) Neutrophils (%) (Auto) 93 % (31-73) Lymphocytes (%) (Auto) 4 % (24-48) Monocytes (%) (Auto) 4 % (0-9) Eosinophils (%) (Auto) 0 % (0-3) Basophils (%) (Auto) 0 % (0-3) Neutrophils # (Auto) 13.7 x10^3/uL (1.8-7.7) Lymphocytes # (Auto) 0.5 x10^3/uL (1.0-4.8) Monocytes # (Auto) 0.5 x10^3/uL (0.0-1.1) Eosinophils # (Auto) 0.0 x10^3/uL (0.0-0.7) Basophils # (Auto) 0.0 x10^3/uL (0.0-0.2) Segmented Neutrophils % 90 % (35-66) Band Neutrophils % 4 % (0-9) Lymphocytes % 4 % (24-48) Monocytes % 2 % (0-10) Dohle Bodies Present Platelet Estimate Adequate (ADEQUATE) Large Platelets Few Anisocytosis Slight Sodium Level 138 mmol/L (136-145) Potassium Level 4.5 mmol/L (3.5-5.1) Chloride Level 99 mmol/L (98-107) Carbon Dioxide Level 36 mmol/L (21-32) Anion Gap 3 (6-14) Blood Urea Nitrogen 19 mg/dL (7-20) Creatinine 0.8 mg/dL (0.6-1.0) Estimated GFR (Cockcroft-Gault) 67.7 BUN/Creatinine Ratio 24 (6-20) Glucose Level 135 mg/dL (70-99) Lactic Acid Level 1.1 mmol/L (0.4-2.0) Calcium Level 8.9 mg/dL (8.5-10.1) Magnesium Level 2.1 mg/dL (1.8-2.4) Total Bilirubin 0.4 mg/dL (0.2-1.0) Aspartate Amino Transf (AST/SGOT) 19 U/L (15-37) Alanine Aminotransferase (ALT/SGPT) 17 U/L (14-59) Alkaline Phosphatase 95 U/L (46-116) Troponin I Quantitative < 0.017 ng/mL (0.000-0.055) KV-Aql-M-Type Natriuretic Peptide 2666 pg/mL (0-449) Total Protein 7.8 g/dL (6.4-8.2) Albumin 3.2 g/dL (3.4-5.0) Albumin/Globulin Ratio 0.7 (1.0-1.7) Urine Collection Type Void Urine Color Yellow Urine Clarity Clear Urine pH 7.0 (<5.0-8.0) Urine Specific [place] 1.020 (1.000-1.030) Urine Protein 30 mg/dL (NEG-TRACE) Urine Glucose (UA) Negative mg/dL (NEG) Urine Ketones (Stick) Negative mg/dL (NEG) Urine Blood Negative (NEG) Urine Nitrite Positive (NEG) Urine Bilirubin Negative (NEG) Urine Urobilinogen Dipstick 0.2 mg/dL (0.2 mg/dL) Urine Leukocyte Esterase Moderate (NEG) Urine RBC Occ /HPF (0-2) Urine WBC 20-40 /HPF (0-4) Urine Squamous Epithelial Cells Few /LPF Urine Bacteria Many /HPF (0-FEW) Coronavirus (PCR) Not detected (Not Detected) Glucose (Fingerstick) 121 mg/dL (70-99) Test 09/18/19 04:20 09/18/19 07:45 09/18/19 11:52 White Blood Count 10.3 x10^3/uL (4.0-11.0) Red Blood Count 3.57 x10^6/uL (3.50-5.40) Hemoglobin 7.8 g/dL (12.0-15.5) Hematocrit 25.5 % (36.0-47.0) Mean Corpuscular Volume 71 fL (79-100) Mean Corpuscular Hemoglobin 22 pg (25-35) Mean Corpuscular Hemoglobin Concent 30 g/dL (31-37) Red Cell Distribution Width 17.3 % (11.5-14.5) Platelet Count 158 x10^3/uL (140-400) Neutrophils (%) (Auto) 89 % (31-73) Lymphocytes (%) (Auto) 7 % (24-48) Monocytes (%) (Auto) 5 % (0-9) Eosinophils (%) (Auto) 0 % (0-3) Basophils (%) (Auto) 0 % (0-3) Neutrophils # (Auto) 9.1 x10^3/uL (1.8-7.7) Lymphocytes # (Auto) 0.7 x10^3/uL (1.0-4.8) Monocytes # (Auto) 0.5 x10^3/uL (0.0-1.1) Eosinophils # (Auto) 0.0 x10^3/uL (0.0-0.7) Basophils # (Auto) 0.0 x10^3/uL (0.0-0.2) Sodium Level 139 mmol/L (136-145) Potassium Level 3.6 mmol/L (3.5-5.1) Chloride Level 97 mmol/L (98-107) Carbon Dioxide Level 38 mmol/L (21-32) Anion Gap 4 (6-14) Blood Urea Nitrogen 17 mg/dL (7-20) Creatinine 0.9 mg/dL (0.6-1.0) Estimated GFR (Cockcroft-Gault) 59.1 Glucose Level 115 mg/dL (70-99) Calcium Level 8.4 mg/dL (8.5-10.1) Magnesium Level 1.8 mg/dL (1.8-2.4) Troponin I Quantitative < 0.017 ng/mL (0.000-0.055) Triglycerides Level 97 mg/dL (0-150) Cholesterol Level 186 mg/dL (0-200) LDL Cholesterol, Calculated 89 mg/dL (0-100) VLDL Cholesterol, Calculated 19 mg/dL (0-40) Non-HDL Cholesterol Calculated 108 mg/dL (0-129) HDL Cholesterol 78 mg/dL (40-60) Cholesterol/HDL Ratio 2.4 Glucose (Fingerstick) 110 mg/dL (70-99) 139 mg/dL (70-99) Laboratory Tests Test 09/17/19 22:42 09/18/19 04:20 09/18/19 07:45 09/18/19 11:52 Glucose (Fingerstick) 121 mg/dL (70-99) 110 mg/dL (70-99) 139 mg/dL (70-99) White Blood Count 10.3 x10^3/uL (4.0-11.0) Red Blood Count 3.57 x10^6/uL (3.50-5.40) Hemoglobin 7.8 g/dL (12.0-15.5) Hematocrit 25.5 % (36.0-47.0) Mean Corpuscular Volume 71 fL (79-100) Mean Corpuscular Hemoglobin 22 pg (25-35) Mean Corpuscular Hemoglobin Concent 30 g/dL (31-37) Red Cell Distribution Width 17.3 % (11.5-14.5) Platelet Count 158 x10^3/uL (140-400) Neutrophils (%) (Auto) 89 % (31-73) Lymphocytes (%) (Auto) 7 % (24-48) Monocytes (%) (Auto) 5 % (0-9) Eosinophils (%) (Auto) 0 % (0-3) Basophils (%) (Auto) 0 % (0-3) Neutrophils # (Auto) 9.1 x10^3/uL (1.8-7.7) Lymphocytes # (Auto) 0.7 x10^3/uL (1.0-4.8) Monocytes # (Auto) 0.5 x10^3/uL (0.0-1.1) Eosinophils # (Auto) 0.0 x10^3/uL (0.0-0.7) Basophils # (Auto) 0.0 x10^3/uL (0.0-0.2) Sodium Level 139 mmol/L (136-145) Potassium Level 3.6 mmol/L (3.5-5.1) Chloride Level 97 mmol/L (98-107) Carbon Dioxide Level 38 mmol/L (21-32) Anion Gap 4 (6-14) Blood Urea Nitrogen 17 mg/dL (7-20) Creatinine 0.9 mg/dL (0.6-1.0) Estimated GFR (Cockcroft-Gault) 59.1 Glucose Level 115 mg/dL (70-99) Calcium Level 8.4 mg/dL (8.5-10.1) Magnesium Level 1.8 mg/dL (1.8-2.4) Troponin I Quantitative < 0.017 ng/mL (0.000-0.055) Triglycerides Level 97 mg/dL (0-150) Cholesterol Level 186 mg/dL (0-200) LDL Cholesterol, Calculated 89 mg/dL (0-100) VLDL Cholesterol, Calculated 19 mg/dL (0-40) Non-HDL Cholesterol Calculated 108 mg/dL (0-129) HDL Cholesterol 78 mg/dL (40-60) Cholesterol/HDL Ratio 2.4 Microbiology 09/17/19 Blood Culture - Preliminary, Resulted NO GROWTH AFTER 1 DAY Medications Current Medications Ceftriaxone Sodium (Rocephin) 1 gm 1X ONCE IVP Last administered on 09/17/19at 12:33; Start 09/17/19 at 12:15; Stop 09/17/19 at 12:16; Status DC Azithromycin 250 ml @ 250 mls/hr 1X ONCE IV Last administered on 09/17/19at 12:33; Start 09/17/19 at 12:15; Stop 09/18/19 at 12:58; Status DC Ondansetron HCl (Zofran) 4 mg PRN Q8HRS PRN IV NAUSEA/VOMITING Last administered on 09/18/19at 10:15; Start 09/17/19 at 14:45; Stop 09/18/19 at 14:44; Status DC Ceftriaxone Sodium (Rocephin) 1 gm Q24H IVP Last administered on 09/18/19at 13:18; Start 09/18/19 at 12:00 Azithromycin (Zithromax) 250 mg DAILY PO ; Start 09/18/19 at 12:00; Stop 09/18/19 at 12:58; Status DC Acetaminophen (Tylenol) 650 mg PRN Q6HRS PRN PO MILD PAIN / TEMP > 100.3'F; Start 09/17/19 at 16:30 Albuterol Sulfate (Ventolin Neb Soln) 2.5 mg PRN Q4HRS PRN NEB SHORTNESS OF BREATH; Start 09/17/19 at 16:30 Furosemide (Lasix) 40 mg 1X ONCE IVP Last administered on 09/17/19at 18:36; Start 09/17/19 at 16:30; Stop 09/17/19 at 16:58; Status DC Alprazolam (Xanax) 0.5 mg BID PO Last administered on 09/18/19 10:16; Start 09/17/19 at 21:00 Amlodipine Besylate (Norvasc) 5 mg DAILY PO Last administered on 09/18/19 10:17; Start 09/18/19 at 09:00 Aspirin (Ecotrin) 81 mg DAILYWBKFT PO Last administered on 09/18/19 10:17; Start 09/18/19 at 08:00 Carvedilol (Coreg) 6.25 mg BIDWMEALS PO Last administered on 09/18/19 10:17; Start 09/17/19 at 17:00; Stop 09/18/19 at 14:53; Status DC Docusate Sodium (Colace) 100 mg BID PO Last administered on 09/18/19 10:17; Start 09/17/19 at 21:00 Fentanyl (Duragesic 12mcg/ Hr Patch) 1 patch Q3DAYS TD Last administered on 09/17/19at 18:37; Start 09/17/19 at 17:00 Acetaminophen/ Hydrocodone Bitart (Lortab 5/325) 1 tab PRN TID PRN PO SEVERE PAIN 7-10; Start 09/17/19 at 16:30 Vitamin D (Vitamin D3) 1,000 unit DAILY PO Last administered on 09/18/19 10:16; Start 09/18/19 at 09:00 Ropinirole HCl (Requip) 1 mg TID PO Last administered on 09/18/19 10:16; Start 09/17/19 at 21:00; Stop 09/18/19 at 16:01; Status DC Multivitamins (Thera M Plus) 1 tab DAILY PO Last administered on 09/18/19 10:17; Start 09/18/19 at 09:00 Zolpidem Tartrate (Ambien) 5 mg PRN QHS PRN PO INSOMNIA, MAY REPEAT IN 1HR; Start 09/17/19 at 16:30 Pregabalin (Lyrica) 50 mg BID PO Last administered on 09/18/19 10:16; Start 09/17/19 at 21:00 Potassium Chloride (Klor-Con) 20 meq DAILYWBKFT PO Last administered on 09/18/19 10:17; Start 09/18/19 at 08:00 Sertraline HCl (Zoloft) 100 mg DAILY PO Last administered on 09/18/19 10:17; Start 09/18/19 at 09:00 Pantoprazole Sodium (Protonix) 40 mg DAILYAC PO Last administered on 09/18/19at 10:16; Start 09/18/19 at 07:30 Enoxaparin Sodium (Lovenox 40mg Syringe) 40 mg Q24H SQ Last administered on 09/18/19at 10:16; Start 09/17/19 at 21:00 Furosemide (Lasix) 40 mg DAILY IVP Last administered on 09/18/19at 10:15; Start 09/18/19 at 09:00 Ascorbic Acid (Vitamin C) 500 mg BID PO Last administered on 09/18/19at 15:53; Start 09/18/19 at 14:30 Lactobacillus Rhamnosus (Culturelle) 1 cap BID PO ; Start 09/18/19 at 21:00 Carvedilol (Coreg) 6.25 mg BIDWMEALS PO ; Start 09/19/19 at 08:00 Ropinirole HCl (Requip) 1 mg TID PO Last administered on 09/18/19at 16:32; Start 09/18/19 at 16:15 Active Scripts Active Aspirin 81 Mg Tab.chew 81 Mg PO DAILY Furosemide 40 Mg Tablet 40 Mg PO DAILY Klor-Con M20 (Potassium Chloride) 20 Meq Tab.er.prt 20 Meq PO DAILYWBKFT Ropinirole Hcl 1 Mg Tablet 1 Mg PO TID Ambien (Zolpidem Tartrate) 5 Mg Tablet 5 Mg PO QHS Alprazolam 0.5 Mg Tablet 0.5 Mg PO BID FENTANYL 12mcg/hr (Fentanyl) 1 Each Patch.td72 1 Patch TP Q3DAYS Lyrica (Pregabalin) 50 Mg Capsule 1 Cap PO BID Pantoprazole Sodium (Pantoprazole Sodium) 40 Mg Tablet.dr 40 Mg PO DAILY Sertraline Hcl 50 Mg Tablet 50 Mg PO DAILY Amlodipine Besylate 10 Mg Tablet 10 Mg PO DAILY Carvedilol (Carvedilol) 6.25 Mg Tablet 6.25 Mg PO BIDWMEALS Hydrocodone-Apap 5-325 (Hydrocodone Bit/Acetaminophen) 1 Tab Tablet 1 Tab PO PRN Q8HRS PRN Reported Duoneb 0.5-3(2.5) Mg/3 Ml (Albuterol/Ipratropium) 3 Ml Ampul.neb 3 Ml NEB PRN Q4HRS PRN Vitamin D (Cholecalciferol (Vitamin D3)) 1,000 Unit Capsule 1 Cap PO DAILY Multi-Day Vitamins (Multivitamin) 1 Each Tablet 1 Tab PO DAILY Vitals/I & O Vital Sign - Last 24 Hours 09/17/19 09/17/19 09/17/19 09/18/19 19:00 22:45 23:00 07:30 Temp 98.6 98.9 99.9 98.6 98.9 99.9 Pulse 104 107 99 Resp 17 20 B/P (MAP) 146/54 (84) 135/54 (81) 137/91 (106) Pulse Ox 94 92 96 O2 Delivery Nasal Cannula Nasal Cannula Nasal Cannula Nasal Cannula O2 Flow Rate 3.0 4.0 3.0 3.0 09/18/19 09/18/19 09/18/19 09/18/19 10:17 10:17 11:00 15:00 Temp 99.0 98.5 99.0 98.5 Pulse 99 99 99 83 Resp 22 18 B/P (MAP) 137/91 137/91 87/41 (56) 104/49 (67) Pulse Ox 3 91 O2 Delivery Nasal Cannula Nasal Cannula O2 Flow Rate 96.0 3.0 Intake and Output 09/17/19 09/17/19 09/18/19 15:00 23:00 07:00 Intake Total 250 ml 100 ml 100 ml Output Total 975 ml Balance 250 ml 100 ml -875 ml Justicifation of Admission Dx: Justifications for Admission: Justification of Admission Dx: Yes Nutrition Consultation Dietary Evaluation: Recommendations by RD: Dietary education by RD, Increase Calorie Intake, Protein supplementation Comments: REC ADA/Cardiac diet Glucerna bid Lazarus bid mvi Expected Outcomes/Goals: to meet >75% est nutr needs improved wound status Malnutrition Findings: Food and Nutrition Intake (Mod: <75% est energy req 7days Weight Status: Appropriate KARAN KIMBLE MD Sep 18, 2019 17:07
[2019-09-18] MEDS: CARVEDILOL 3.125 MG TABLET. PO SCH (17:30)
--- NOTE | 2019-09-18 17:42 | NUR ---
SW following. Reviewed chart and discussed with RN. Pt on IV Rocephin and 3 l 02. Pt COVID pending. PT/OT to evaluate and have been consulted. SW to follow.
[2019-09-18] MEDS: LACTULOSE 20 GM/30 ML SOLUTION. PO SCH ×2 (18:06→23:09)
[2019-09-18] MEDS: LIDOCAINE (700MG/PATCH) PATCH. TD SCH (18:06)
[2019-09-18] MEDS: POTASSIUM CHLORIDE 20 MEQ TABLET.ER. PO SCH (18:06)
[2019-09-18] MEDS: HYDROcodone/APAP 5/325MG 1 TAB TABLET PO PRN (18:06)
[2019-09-18 19:00] VITALS: BP 119/57
[2019-09-18] MEDS: PATCH REMOVAL. MC SCH (23:09)
[2019-09-18] MEDS: LACTOBACILLUS RHAMNOSUS GG 1 CAPSULE. PO SCH (23:09)
[2019-09-18 23:23] VITALS: BP 132/55
--- NOTE | 2019-09-19 | NUR ---
TRANSFER NOTE: Patient arrived to room 532 via bed accompanied by [facility] staff. Patient's wheelchair and belongings present at this time. Bed low, locked, call light within reach. Tele monitor applied at this time. Will continue to monitor.
[2019-09-19 03:00] VITALS: BP 133/55
[2019-09-19 07:54] VITALS: BP 122/35
[2019-09-19] MEDS ORDERED: CARVEDILOL 6.25 MG TABLET. PO SCH (08:00)
[2019-09-19 08:19] LABS: BASO % 0 % (0-3); EOS # 0.1 x10^3/uL (0.0-0.7); EOS % 1 % (0-3); HEMATOCRIT 24.1 % (36.0-47.0); HEMOGLOBIN 7.3 g/dL (12.0-15.5); LYMPH # 0.6 x10^3/uL (1.0-4.8); LYMPH % 6 % (24-48); MEAN CORPUSCULAR HEMOGLOBIN 22 pg (25-35); MEAN CORPUSCULAR HGB CONC 30 g/dL (31-37); MEAN CORPUSCULAR VOLUME 72 fL (79-100); MONO # 0.7 x10^3/uL (0.0-1.1); MONO % 7 % (0-9); NEUT # 8.5 x10^3/uL (1.8-7.7); NEUT % 86 % (31-73); PLATELET COUNT 189 x10^3/uL (140-400); RED BLOOD COUNT 3.37 x10^6/uL (3.50-5.40); RED CELL DISTRIBUTION WIDTH 17.2 % (11.5-14.5); WHITE BLOOD COUNT 9.9 x10^3/uL (4.0-11.0)
[2019-09-19 08:29] LABS: CALCIUM 8.8 mg/dL (8.5-10.1); CREATININE 0.8 mg/dL (0.6-1.0); GFR 67.7; POTASSIUM 3.8 mmol/L (3.5-5.1)
[2019-09-19] MEDS: ASCORBIC ACID 500 MG TABLET PO SCH ×2 (09:00→20:57)
--- NOTE | 2019-09-19 09:39 | PDOC2 ---
GI CONSULT Date of Service: DATE: 09/19/19 TIME: 09:39 Reason For Consult: esophageal dysphagia HPI: HPI: Pleasant 89 y/o female admitted w/ CHF and UTI. Trouble swallowing solids - not any worse than usual. "It's my wiggly esophagus." Recently tried pureed diet at home and swallowed better. Also says she needs to new dentures. Solids (bread, also names eggs) get stuck in mid throat, sometimes drinking water helps (but she it too weak to lift a jug of water - needs a small cup). Must take pills w/ applesauce. Usually no trouble w/ liquids. Decreased appetite and weight loss for awhile, says food just doesn't taste good. Denies odynophagia. H/o intermittent dysphagia for years - says past dilations ineffective (though has said they were helpful in the past), also heartburn on PPI. H/o chronic constipation on Miralax and a couple other pills PRN - said pooped all over her bed this morning and had to take a bath. Chronic right-sided pain attributed to right adnexal cyst. Denies bleeding. EGD 08/05/[address] Houston for recurrent dysphagia: tertiary contractions/sigmoid esophagus, healed reflux, 1cm adenomatous polyp at pylorus, normal duodenum, empiric esophageal dilation to 48Fr. H/o colon polyps, last colonoscopy normal in 2014. S/p cholecystectomy. No liver, pancreas, PUD history. Microcytic anemia noted - other notes list h/o ACD. COVID negative 07/30 and 09/16. PMH: PMH: CHF, HTN, HLD, COPD, pneumonia, peripheral neuropathy, anxiety, depression, LBP, OA, fibromyalgia, gout, UTI, DM, CKD pacemaker, cholecystectomy, cataract removal, RTHK, hysterectomy, lumbar laminectomy FH: Family History: No pertinent hx Social History: Smoke: No ALCOHOL: none Drugs: None ROS: GEN: Denies fevers, chills, sweats HEENT: Denies blurred vision, sore throat CV: Denies chest pain RESP: +cough +SOA GI: Per HPI : Denies hematuria, dysuria ENDO: +weight loss NEURO: Denies confusion, dizziness MSK: +weakness SKIN: Denies jaundice, pruritus Vitals: Vitals: Vital Signs Date Time Temp Pulse Resp B/P (MAP) Pulse Ox O2 Delivery O2 Flow Rate FiO2 09/19/19 07:54 98.6 77 18 122/35 (64) 94 Nasal Cannula 4.0 98.6 Labs: Labs: Laboratory Tests Test 09/18/19 11:52 09/18/19 17:12 09/18/19 20:58 09/19/19 07:45 Glucose (Fingerstick) 139 mg/dL (70-99) 136 mg/dL (70-99) 116 mg/dL (70-99) White Blood Count 9.9 x10^3/uL (4.0-11.0) Red Blood Count 3.37 x10^6/uL (3.50-5.40) Hemoglobin 7.3 g/dL (12.0-15.5) Hematocrit 24.1 % (36.0-47.0) Mean Corpuscular Volume 72 fL (79-100) Mean Corpuscular Hemoglobin 22 pg (25-35) Mean Corpuscular Hemoglobin Concent 30 g/dL (31-37) Red Cell Distribution Width 17.2 % (11.5-14.5) Platelet Count 189 x10^3/uL (140-400) Neutrophils (%) (Auto) 86 % (31-73) Lymphocytes (%) (Auto) 6 % (24-48) Monocytes (%) (Auto) 7 % (0-9) Eosinophils (%) (Auto) 1 % (0-3) Basophils (%) (Auto) 0 % (0-3) Neutrophils # (Auto) 8.5 x10^3/uL (1.8-7.7) Lymphocytes # (Auto) 0.6 x10^3/uL (1.0-4.8) Monocytes # (Auto) 0.7 x10^3/uL (0.0-1.1) Eosinophils # (Auto) 0.1 x10^3/uL (0.0-0.7) Basophils # (Auto) 0.0 x10^3/uL (0.0-0.2) Sodium Level 141 mmol/L (136-145) Potassium Level 3.8 mmol/L (3.5-5.1) Chloride Level 99 mmol/L (98-107) Carbon Dioxide Level 37 mmol/L (21-32) Anion Gap 5 (6-14) Blood Urea Nitrogen 24 mg/dL (7-20) Creatinine 0.8 mg/dL (0.6-1.0) Estimated GFR (Cockcroft-Gault) 67.7 Glucose Level 107 mg/dL (70-99) Calcium Level 8.8 mg/dL (8.5-10.1) BLOOD CULTURE Preliminary NO GROWTH AFTER 1 DAY Allergies: Coded Allergies: Iodinated Contrast Media (Verified Allergy, Intermediate, ITCH, 08/05/19) Medications: Current Medications Medications (Trade) Dose Ordered Sig/Lindsey Route PRN Reason Start Time Stop Time Status Last Admin Dose Admin Ceftriaxone Sodium (Rocephin) 1 gm Q24H IVP 09/18/19 12:00 09/18/19 13:18 Ascorbic Acid (Vitamin C) 500 mg BID PO 09/18/19 14:30 09/18/19 23:08 Lactobacillus Rhamnosus (Culturelle) 1 cap BID PO 09/18/19 21:00 09/18/19 23:09 Ropinirole HCl (Requip) 1 mg TID PO 09/18/19 16:15 09/18/19 23:09 Potassium Chloride (Klor-Con) 20 meq BIDWMEALS PO 09/18/19 17:30 09/18/19 18:06 Lactulose (Lactulose) 20 gm Q2HR PO 09/18/19 18:00 09/18/19 20:01 DC 09/18/19 23:09 Lidocaine (Lidoderm) 2 patch DAILY TD 09/18/19 17:30 09/18/19 18:06 Imaging: Imaging: CXR IMPRESSION: Bilateral alveolar and interstitial infiltrates and small right pleural effusion. BLE US IMPRESSION: * No thrombus identified in deep venous system of bilateral lower extremities. 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 Continue PPI and constipation treatment. Could consider trial of prokinetic for dysphagia. AB BLOUNT Sep 19, 2019 09:39
[2019-09-19] MEDS: ALPRAZolam 0.5 MG TABLET PO SCH ×2 (09:51→20:57)
[2019-09-19] MEDS: ASPIRIN ENTERIC COATED 81 MG TABLET.DR. PO SCH (09:51)
[2019-09-19] MEDS: PREGABALIN 50 MG CAPSULE PO SCH ×2 (09:51→20:57)
[2019-09-19] MEDS: rOPINIRole 1 MG TABLET. PO SCH ×3 (09:51→20:57)
[2019-09-19] MEDS: LACTOBACILLUS RHAMNOSUS GG 1 CAPSULE. PO SCH ×2 (09:51→20:57)
[2019-09-19] MEDS: SENNOSIDES/DOCUSATE 8.6/50MG TABLET. PO SCH (09:51)
[2019-09-19] MEDS: CARVEDILOL 3.125 MG TABLET. PO SCH ×2 (09:52→17:53)
[2019-09-19] MEDS: MULTIVITAMIN with MINERAL TABLET. PO SCH (09:52)
[2019-09-19] MEDS: CHOLECALCIFEROL (VITAMIN D3) 1,000 UNIT TABLET PO SCH (09:52)
[2019-09-19] MEDS: POTASSIUM CHLORIDE 20 MEQ TABLET.ER. PO SCH ×2 (09:52→17:53)
[2019-09-19] MEDS: SERTRALINE 50 MG TABLET. PO SCH (09:53)
[2019-09-19] MEDS: LIDOCAINE (700MG/PATCH) PATCH. TD SCH (09:53)
[2019-09-19] MEDS: PANTOPRAZOLE 40 MG TABLET.DR. PO SCH (09:53)
--- NOTE | 2019-09-19 10:58 | PDOC ---
PULMONARY PROGRESS NOTES DATE: 09/19/19 TIME: 10:56 Subjective Pt. is resting on 2 liters N/C, NO FEVER fever this am, weak no other concerns from nursing Vitals Vital Signs Date Time Temp Pulse Resp B/P (MAP) Pulse Ox O2 Delivery O2 Flow Rate FiO2 09/19/19 09:52 77 122/35 09/19/19 07:54 98.6 18 94 Nasal Cannula 4.0 98.6 ROS: No Nausea, No Chest Pain, No Abdominal Pain, No Increase Cough General: Alert, Oriented X4 Lungs: Clear Cardiovascular: S1, S2 Abdomen: Soft, Non-tender Neuro Exam: Alert Extremities: No Edema Skin: Warm, Dry Labs Laboratory Tests Test 09/17/19 11:40 09/17/19 13:06 09/17/19 22:42 09/18/19 04:20 Urine Collection Type Void Urine Color Yellow Urine Clarity Clear Urine pH 7.0 (<5.0-8.0) Urine Specific [place] 1.020 (1.000-1.030) Urine Protein 30 mg/dL (NEG-TRACE) Urine Glucose (UA) Negative mg/dL (NEG) Urine Ketones (Stick) Negative mg/dL (NEG) Urine Blood Negative (NEG) Urine Nitrite Positive (NEG) Urine Bilirubin Negative (NEG) Urine Urobilinogen Dipstick 0.2 mg/dL (0.2 mg/dL) Urine Leukocyte Esterase Moderate (NEG) Urine RBC Occ /HPF (0-2) Urine WBC 20-40 /HPF (0-4) Urine Squamous Epithelial Cells Few /LPF Urine Bacteria Many /HPF (0-FEW) Coronavirus (PCR) Not detected (Not Detected) Glucose (Fingerstick) 121 mg/dL (70-99) White Blood Count 10.3 x10^3/uL (4.0-11.0) Red Blood Count 3.57 x10^6/uL (3.50-5.40) Hemoglobin 7.8 g/dL (12.0-15.5) Hematocrit 25.5 % (36.0-47.0) Mean Corpuscular Volume 71 fL (79-100) Mean Corpuscular Hemoglobin 22 pg (25-35) Mean Corpuscular Hemoglobin Concent 30 g/dL (31-37) Red Cell Distribution Width 17.3 % (11.5-14.5) Platelet Count 158 x10^3/uL (140-400) Neutrophils (%) (Auto) 89 % (31-73) Lymphocytes (%) (Auto) 7 % (24-48) Monocytes (%) (Auto) 5 % (0-9) Eosinophils (%) (Auto) 0 % (0-3) Basophils (%) (Auto) 0 % (0-3) Neutrophils # (Auto) 9.1 x10^3/uL (1.8-7.7) Lymphocytes # (Auto) 0.7 x10^3/uL (1.0-4.8) Monocytes # (Auto) 0.5 x10^3/uL (0.0-1.1) Eosinophils # (Auto) 0.0 x10^3/uL (0.0-0.7) Basophils # (Auto) 0.0 x10^3/uL (0.0-0.2) Sodium Level 139 mmol/L (136-145) Potassium Level 3.6 mmol/L (3.5-5.1) Chloride Level 97 mmol/L (98-107) Carbon Dioxide Level 38 mmol/L (21-32) Anion Gap 4 (6-14) Blood Urea Nitrogen 17 mg/dL (7-20) Creatinine 0.9 mg/dL (0.6-1.0) Estimated GFR (Cockcroft-Gault) 59.1 Glucose Level 115 mg/dL (70-99) Calcium Level 8.4 mg/dL (8.5-10.1) Magnesium Level 1.8 mg/dL (1.8-2.4) Troponin I Quantitative < 0.017 ng/mL (0.000-0.055) Triglycerides Level 97 mg/dL (0-150) Cholesterol Level 186 mg/dL (0-200) LDL Cholesterol, Calculated 89 mg/dL (0-100) VLDL Cholesterol, Calculated 19 mg/dL (0-40) Non-HDL Cholesterol Calculated 108 mg/dL (0-129) HDL Cholesterol 78 mg/dL (40-60) Cholesterol/HDL Ratio 2.4 Test 09/18/19 07:45 09/18/19 11:52 09/18/19 17:12 09/18/19 20:58 Glucose (Fingerstick) 110 mg/dL (70-99) 139 mg/dL (70-99) 136 mg/dL (70-99) 116 mg/dL (70-99) Test 09/19/19 07:45 White Blood Count 9.9 x10^3/uL (4.0-11.0) Red Blood Count 3.37 x10^6/uL (3.50-5.40) Hemoglobin 7.3 g/dL (12.0-15.5) Hematocrit 24.1 % (36.0-47.0) Mean Corpuscular Volume 72 fL (79-100) Mean Corpuscular Hemoglobin 22 pg (25-35) Mean Corpuscular Hemoglobin Concent 30 g/dL (31-37) Red Cell Distribution Width 17.2 % (11.5-14.5) Platelet Count 189 x10^3/uL (140-400) Neutrophils (%) (Auto) 86 % (31-73) Lymphocytes (%) (Auto) 6 % (24-48) Monocytes (%) (Auto) 7 % (0-9) Eosinophils (%) (Auto) 1 % (0-3) Basophils (%) (Auto) 0 % (0-3) Neutrophils # (Auto) 8.5 x10^3/uL (1.8-7.7) Lymphocytes # (Auto) 0.6 x10^3/uL (1.0-4.8) Monocytes # (Auto) 0.7 x10^3/uL (0.0-1.1) Eosinophils # (Auto) 0.1 x10^3/uL (0.0-0.7) Basophils # (Auto) 0.0 x10^3/uL (0.0-0.2) Sodium Level 141 mmol/L (136-145) Potassium Level 3.8 mmol/L (3.5-5.1) Chloride Level 99 mmol/L (98-107) Carbon Dioxide Level 37 mmol/L (21-32) Anion Gap 5 (6-14) Blood Urea Nitrogen 24 mg/dL (7-20) Creatinine 0.8 mg/dL (0.6-1.0) Estimated GFR (Cockcroft-Gault) 67.7 Glucose Level 107 mg/dL (70-99) Calcium Level 8.8 mg/dL (8.5-10.1) Laboratory Tests Test 09/18/19 11:52 09/18/19 17:12 09/18/19 20:58 09/19/19 07:45 Glucose (Fingerstick) 139 mg/dL (70-99) 136 mg/dL (70-99) 116 mg/dL (70-99) White Blood Count 9.9 x10^3/uL (4.0-11.0) Red Blood Count 3.37 x10^6/uL (3.50-5.40) Hemoglobin 7.3 g/dL (12.0-15.5) Hematocrit 24.1 % (36.0-47.0) Mean Corpuscular Volume 72 fL (79-100) Mean Corpuscular Hemoglobin 22 pg (25-35) Mean Corpuscular Hemoglobin Concent 30 g/dL (31-37) Red Cell Distribution Width 17.2 % (11.5-14.5) Platelet Count 189 x10^3/uL (140-400) Neutrophils (%) (Auto) 86 % (31-73) Lymphocytes (%) (Auto) 6 % (24-48) Monocytes (%) (Auto) 7 % (0-9) Eosinophils (%) (Auto) 1 % (0-3) Basophils (%) (Auto) 0 % (0-3) Neutrophils # (Auto) 8.5 x10^3/uL (1.8-7.7) Lymphocytes # (Auto) 0.6 x10^3/uL (1.0-4.8) Monocytes # (Auto) 0.7 x10^3/uL (0.0-1.1) Eosinophils # (Auto) 0.1 x10^3/uL (0.0-0.7) Basophils # (Auto) 0.0 x10^3/uL (0.0-0.2) Sodium Level 141 mmol/L (136-145) Potassium Level 3.8 mmol/L (3.5-5.1) Chloride Level 99 mmol/L (98-107) Carbon Dioxide Level 37 mmol/L (21-32) Anion Gap 5 (6-14) Blood Urea Nitrogen 24 mg/dL (7-20) Creatinine 0.8 mg/dL (0.6-1.0) Estimated GFR (Cockcroft-Gault) 67.7 Glucose Level 107 mg/dL (70-99) Calcium Level 8.8 mg/dL (8.5-10.1) Medications Active Scripts Medications Dose Route/Sig Max Daily Dose Days Date Category Aspirin 81 Mg Tab.chew 81 Mg PO DAILY 07/15/19 Rx Furosemide 40 Mg Tablet 40 Mg PO DAILY 07/15/19 Rx Klor-Con M20 (Potassium Chloride) 20 Meq Tab.er.prt 20 Meq PO DAILYWBKFT 07/15/19 Rx Ropinirole Hcl 1 Mg Tablet 1 Mg PO TID 07/15/19 Rx Ambien (Zolpidem Tartrate) 5 Mg Tablet 5 Mg PO QHS 07/15/19 Rx Alprazolam 0.5 Mg Tablet 0.5 Mg PO BID 07/15/19 Rx FENTANYL 12mcg/hr (Fentanyl) 1 Each Patch.td72 1 Patch TP Q3DAYS 01/23/19 Rx Lyrica (Pregabalin) 50 Mg Capsule 1 Cap PO BID 01/23/19 Rx Pantoprazole Sodium (Pantoprazole Sodium) 40 Mg Tablet.dr 40 Mg PO DAILY 01/13/19 Rx Sertraline Hcl 50 Mg Tablet 50 Mg PO DAILY 01/13/19 Rx Amlodipine Besylate 10 Mg Tablet 10 Mg PO DAILY 01/13/19 Rx Carvedilol (Carvedilol) 6.25 Mg Tablet 6.25 Mg PO BIDWMEALS 01/13/19 Rx Hydrocodone-Apap 5-325 (Hydrocodone Bit/Acetaminophen) 1 Tab Tablet 1 Tab PO PRN Q8HRS PRN 01/13/19 Rx Duoneb 0.5-3(2.5) Mg/3 Ml (Albuterol/Ipratropium) 3 Ml Ampul.neb 3 Ml NEB PRN Q4HRS PRN 03/13/18 Reported Vitamin D (Cholecalciferol (Vitamin D3)) 1,000 Unit Capsule 1 Cap PO DAILY 06/24/17 Reported Multi-Day Vitamins (Multivitamin) 1 Each Tablet 1 Tab PO DAILY 01/18/16 Reported Comments CXR IMPRESSION: Bilateral alveolar and interstitial infiltrates and small right pleural effusio Impression . IMPRESSION: 1. Acute on chronic hypoxic respiratory failure secondary to congestive heart failure. 2. Acute on chronic diastolic heart failure. 3. Clinically, less likely pneumonia. 4. Abnormal chest x-ray with bilateral interstitial infiltrates suggestive of congestive heart failure. 5. No suspicion for COVID. Plan . RECOMMENDATIONS: 1. Continue present oxygen with gradual weaning to keep saturation 92 2. IV diuresis. 3. Follow chest x-ray as needed. 4. Follow cardiology recs -- EF was 55% in 2019 5. Monitor hemoglobin 6. COVID-19 test NEG 7. DVT prophylaxis with Lovenox. 8. Continue antibiotics 9. Discussed with RN. DNR YONI MALIK MD Sep 19, 2019 10:58
[2019-09-19 11:49] VITALS: BP 145/51
--- NOTE | 2019-09-19 11:51 | PDOC ---
PROGRESS NOTES Date of Service DATE: 09/19/19 TIME: 11:47 Subjective Subjective NOT SHORT OF BREATH. NO COUGH. LABS REVIEWED. feels better. Objective Objective Vital Signs Date Time Temp Pulse Resp B/P (MAP) Pulse Ox O2 Delivery O2 Flow Rate FiO2 09/19/19 09:52 77 122/35 09/19/19 07:54 98.6 18 94 Nasal Cannula 4.0 98.6 Intake and Output 09/19/19 07:00 Intake Total 400 ml Output Total 775 ml Balance -375 ml Intake Oral 400 ml Output Urine Total 775 ml Physical Exam Abdomen: Soft Heart: Regular rate, Normal S1, Normal S2 Extremities: No edema General: Alert HEENT: Atraumatic Lungs: Other (decreased breath sounds with few bibasilar crackles) Neuro: Normal speech Psych/Mental Status: Mental status NL Skin: No rashes, Other (heel wound) Assessment Assessment Problems1. Acute on chronic diastolic congestive heart failure. 2. Xvws-bd-bfesugda mitral stenosis. 3. Acute on chronic hypoxic respiratory failure. 4. Possible pneumonia. 5. Leukocytosis resolved 6. Left heel wound. 7. Fibromyalgia. 8. Chronic obstructive pulmonary disease. 9. Diabetes mellitus type 2 with peripheral neuropathy, treated with diet. 10. Anemia of chronic disease. esophageal dysphagia Medical Problems: (1) CAP (community acquired pneumonia) Status: Acute (2) UTI (urinary tract infection) Status: Acute Plan Plan of Care continue iv lasix continue kcl continue oxygen continue iv rocephin continue lovenox for dvt prophylaxis lab tomorrow cxr tomorrow Comment Review of Relevant I have reviewed the following items lizbeth (where applicable) has been applied. Labs Laboratory Tests Test 09/17/19 13:06 09/17/19 22:42 09/18/19 04:20 09/18/19 07:45 Coronavirus (PCR) Not detected (Not Detected) Glucose (Fingerstick) 121 mg/dL (70-99) 110 mg/dL (70-99) White Blood Count 10.3 x10^3/uL (4.0-11.0) Red Blood Count 3.57 x10^6/uL (3.50-5.40) Hemoglobin 7.8 g/dL (12.0-15.5) Hematocrit 25.5 % (36.0-47.0) Mean Corpuscular Volume 71 fL (79-100) Mean Corpuscular Hemoglobin 22 pg (25-35) Mean Corpuscular Hemoglobin Concent 30 g/dL (31-37) Red Cell Distribution Width 17.3 % (11.5-14.5) Platelet Count 158 x10^3/uL (140-400) Neutrophils (%) (Auto) 89 % (31-73) Lymphocytes (%) (Auto) 7 % (24-48) Monocytes (%) (Auto) 5 % (0-9) Eosinophils (%) (Auto) 0 % (0-3) Basophils (%) (Auto) 0 % (0-3) Neutrophils # (Auto) 9.1 x10^3/uL (1.8-7.7) Lymphocytes # (Auto) 0.7 x10^3/uL (1.0-4.8) Monocytes # (Auto) 0.5 x10^3/uL (0.0-1.1) Eosinophils # (Auto) 0.0 x10^3/uL (0.0-0.7) Basophils # (Auto) 0.0 x10^3/uL (0.0-0.2) Sodium Level 139 mmol/L (136-145) Potassium Level 3.6 mmol/L (3.5-5.1) Chloride Level 97 mmol/L (98-107) Carbon Dioxide Level 38 mmol/L (21-32) Anion Gap 4 (6-14) Blood Urea Nitrogen 17 mg/dL (7-20) Creatinine 0.9 mg/dL (0.6-1.0) Estimated GFR (Cockcroft-Gault) 59.1 Glucose Level 115 mg/dL (70-99) Calcium Level 8.4 mg/dL (8.5-10.1) Magnesium Level 1.8 mg/dL (1.8-2.4) Troponin I Quantitative < 0.017 ng/mL (0.000-0.055) Triglycerides Level 97 mg/dL (0-150) Cholesterol Level 186 mg/dL (0-200) LDL Cholesterol, Calculated 89 mg/dL (0-100) VLDL Cholesterol, Calculated 19 mg/dL (0-40) Non-HDL Cholesterol Calculated 108 mg/dL (0-129) HDL Cholesterol 78 mg/dL (40-60) Cholesterol/HDL Ratio 2.4 Test 09/18/19 11:52 09/18/19 17:12 09/18/19 20:58 09/19/19 07:45 Glucose (Fingerstick) 139 mg/dL (70-99) 136 mg/dL (70-99) 116 mg/dL (70-99) White Blood Count 9.9 x10^3/uL (4.0-11.0) Red Blood Count 3.37 x10^6/uL (3.50-5.40) Hemoglobin 7.3 g/dL (12.0-15.5) Hematocrit 24.1 % (36.0-47.0) Mean Corpuscular Volume 72 fL (79-100) Mean Corpuscular Hemoglobin 22 pg (25-35) Mean Corpuscular Hemoglobin Concent 30 g/dL (31-37) Red Cell Distribution Width 17.2 % (11.5-14.5) Platelet Count 189 x10^3/uL (140-400) Neutrophils (%) (Auto) 86 % (31-73) Lymphocytes (%) (Auto) 6 % (24-48) Monocytes (%) (Auto) 7 % (0-9) Eosinophils (%) (Auto) 1 % (0-3) Basophils (%) (Auto) 0 % (0-3) Neutrophils # (Auto) 8.5 x10^3/uL (1.8-7.7) Lymphocytes # (Auto) 0.6 x10^3/uL (1.0-4.8) Monocytes # (Auto) 0.7 x10^3/uL (0.0-1.1) Eosinophils # (Auto) 0.1 x10^3/uL (0.0-0.7) Basophils # (Auto) 0.0 x10^3/uL (0.0-0.2) Sodium Level 141 mmol/L (136-145) Potassium Level 3.8 mmol/L (3.5-5.1) Chloride Level 99 mmol/L (98-107) Carbon Dioxide Level 37 mmol/L (21-32) Anion Gap 5 (6-14) Blood Urea Nitrogen 24 mg/dL (7-20) Creatinine 0.8 mg/dL (0.6-1.0) Estimated GFR (Cockcroft-Gault) 67.7 Glucose Level 107 mg/dL (70-99) Calcium Level 8.8 mg/dL (8.5-10.1) Iron Level 9 ug/dL (50-170) Total Iron Binding Capacity 263 ug/dL (250-450) Iron Saturation 3 % (15-34) Laboratory Tests Test 09/18/19 11:52 09/18/19 17:12 09/18/19 20:58 09/19/19 07:45 Glucose (Fingerstick) 139 mg/dL (70-99) 136 mg/dL (70-99) 116 mg/dL (70-99) White Blood Count 9.9 x10^3/uL (4.0-11.0) Red Blood Count 3.37 x10^6/uL (3.50-5.40) Hemoglobin 7.3 g/dL (12.0-15.5) Hematocrit 24.1 % (36.0-47.0) Mean Corpuscular Volume 72 fL (79-100) Mean Corpuscular Hemoglobin 22 pg (25-35) Mean Corpuscular Hemoglobin Concent 30 g/dL (31-37) Red Cell Distribution Width 17.2 % (11.5-14.5) Platelet Count 189 x10^3/uL (140-400) Neutrophils (%) (Auto) 86 % (31-73) Lymphocytes (%) (Auto) 6 % (24-48) Monocytes (%) (Auto) 7 % (0-9) Eosinophils (%) (Auto) 1 % (0-3) Basophils (%) (Auto) 0 % (0-3) Neutrophils # (Auto) 8.5 x10^3/uL (1.8-7.7) Lymphocytes # (Auto) 0.6 x10^3/uL (1.0-4.8) Monocytes # (Auto) 0.7 x10^3/uL (0.0-1.1) Eosinophils # (Auto) 0.1 x10^3/uL (0.0-0.7) Basophils # (Auto) 0.0 x10^3/uL (0.0-0.2) Sodium Level 141 mmol/L (136-145) Potassium Level 3.8 mmol/L (3.5-5.1) Chloride Level 99 mmol/L (98-107) Carbon Dioxide Level 37 mmol/L (21-32) Anion Gap 5 (6-14) Blood Urea Nitrogen 24 mg/dL (7-20) Creatinine 0.8 mg/dL (0.6-1.0) Estimated GFR (Cockcroft-Gault) 67.7 Glucose Level 107 mg/dL (70-99) Calcium Level 8.8 mg/dL (8.5-10.1) Iron Level 9 ug/dL (50-170) Total Iron Binding Capacity 263 ug/dL (250-450) Iron Saturation 3 % (15-34) Microbiology 09/17/19 Blood Culture - Preliminary, Resulted NO GROWTH AFTER 1 DAY Medications Current Medications Ceftriaxone Sodium (Rocephin) 1 gm 1X ONCE IVP Last administered on 09/17/19at 12:33; Start 09/17/19 at 12:15; Stop 09/17/19 at 12:16; Status DC Azithromycin 250 ml @ 250 mls/hr 1X ONCE IV Last administered on 09/17/19at 12:33; Start 09/17/19 at 12:15; Stop 09/18/19 at 12:58; Status DC Ondansetron HCl (Zofran) 4 mg PRN Q8HRS PRN IV NAUSEA/VOMITING Last administered on 09/18/19at 10:15; Start 09/17/19 at 14:45; Stop 09/18/19 at 14:44; Status DC Ceftriaxone Sodium (Rocephin) 1 gm Q24H IVP Last administered on 09/18/19at 13:18; Start 09/18/19 at 12:00 Azithromycin (Zithromax) 250 mg DAILY PO ; Start 09/18/19 at 12:00; Stop 09/18/19 at 12:58; Status DC Acetaminophen (Tylenol) 650 mg PRN Q6HRS PRN PO MILD PAIN / TEMP > 100.3'F; Start 09/17/19 at 16:30 Albuterol Sulfate (Ventolin Neb Soln) 2.5 mg PRN Q4HRS PRN NEB SHORTNESS OF BREATH; Start 09/17/19 at 16:30 Furosemide (Lasix) 40 mg 1X ONCE IVP Last administered on 09/17/19at 18:36; Start 09/17/19 at 16:30; Stop 09/17/19 at 16:58; Status DC Alprazolam (Xanax) 0.5 mg BID PO Last administered on 09/19/19 09:51; Start 09/17/19 at 21:00 Amlodipine Besylate (Norvasc) 5 mg DAILY PO Last administered on 09/18/19 10:17; Start 09/18/19 at 09:00; Stop 09/18/19 at 17:02; Status DC Aspirin (Ecotrin) 81 mg DAILYWBKFT PO Last administered on 09/19/19 09:51; Start 09/18/19 at 08:00 Carvedilol (Coreg) 6.25 mg BIDWMEALS PO Last administered on 09/18/19 10:17; Start 09/17/19 at 17:00; Stop 09/18/19 at 14:53; Status DC Docusate Sodium (Colace) 100 mg BID PO Last administered on 09/18/19 10:17; Start 09/17/19 at 21:00; Stop 09/18/19 at 17:02; Status DC Fentanyl (Duragesic 12mcg/ Hr Patch) 1 patch Q3DAYS TD Last administered on 09/17/19at 18:37; Start 09/17/19 at 17:00 Acetaminophen/ Hydrocodone Bitart (Lortab 5/325) 1 tab PRN TID PRN PO SEVERE PAIN 7-10 Last administered on 09/18/19 18:06; Start 09/17/19 at 16:30 Vitamin D (Vitamin D3) 1,000 unit DAILY PO Last administered on 09/19/19 09:52; Start 09/18/19 at 09:00 Ropinirole HCl (Requip) 1 mg TID PO Last administered on 09/18/19at 10:16; Start 09/17/19 at 21:00; Stop 09/18/19 at 16:01; Status DC Multivitamins (Thera M Plus) 1 tab DAILY PO Last administered on 09/19/19 09:52; Start 09/18/19 at 09:00 Zolpidem Tartrate (Ambien) 5 mg PRN QHS PRN PO INSOMNIA, MAY REPEAT IN 1HR; Start 09/17/19 at 16:30 Pregabalin (Lyrica) 50 mg BID PO Last administered on 09/19/19at 09:51; Start 09/17/19 at 21:00 Potassium Chloride (Klor-Con) 20 meq DAILYWBKFT PO Last administered on 09/18/19at 10:17; Start 09/18/19 at 08:00; Stop 09/18/19 at 17:02; Status DC Sertraline HCl (Zoloft) 100 mg DAILY PO Last administered on 09/19/19at 09:53; Start 09/18/19 at 09:00 Pantoprazole Sodium (Protonix) 40 mg DAILYAC PO Last administered on 09/19/19at 09:53; Start 09/18/19 at 07:30 Enoxaparin Sodium (Lovenox 40mg Syringe) 40 mg Q24H SQ Last administered on 09/18/19at 10:16; Start 09/17/19 at 21:00 Furosemide (Lasix) 40 mg DAILY IVP Last administered on 09/18/19at 10:15; Start 09/18/19 at 09:00; Stop 09/18/19 at 19:20; Status DC Ascorbic Acid (Vitamin C) 500 mg BID PO Last administered on 09/18/19at 23:08; Start 09/18/19 at 14:30 Lactobacillus Rhamnosus (Culturelle) 1 cap BID PO Last administered on 09/19/19at 09:51; Start 09/18/19 at 21:00 Carvedilol (Coreg) 6.25 mg BIDWMEALS PO ; Start 09/19/19 at 08:00; Stop 09/18/19 at 17:02; Status DC Ropinirole HCl (Requip) 1 mg TID PO Last administered on 09/19/19at 09:51; Start 09/18/19 at 16:15 Carvedilol (Coreg) 3.125 mg BIDWMEALS PO Last administered on 09/19/19 09:52; Start 09/18/19 at 17:30 Potassium Chloride (Klor-Con) 20 meq BIDWMEALS PO Last administered on 09/19/19at 09:52; Start 09/18/19 at 17:30 Lactulose (Lactulose) 20 gm Q2HR PO Last administered on 09/18/19at 23:09; Start 09/18/19 at 18:00; Stop 09/18/19 at 20:01; Status DC Senna/Docusate Sodium (Senna Plus) 2 tab DAILY PO Last administered on 09/19/19at 09:51; Start 09/19/19 at 09:00 Lidocaine (Lidoderm) 2 patch DAILY TD Last administered on 09/19/19at 09:53; Start 09/18/19 at 17:30 Miscellaneous (Lidoderm Patch Removal) 1 ea QHS MC ; Start 09/18/19 at 21:00 Polyethylene Glycol (miraLAX PACKET) 17 gm DAILY PO ; Start 09/19/19 at 11:00 Active Scripts Active Aspirin 81 Mg Tab.chew 81 Mg PO DAILY Furosemide 40 Mg Tablet 40 Mg PO DAILY Klor-Con M20 (Potassium Chloride) 20 Meq Tab.er.prt 20 Meq PO DAILYWBKFT Ropinirole Hcl 1 Mg Tablet 1 Mg PO TID Ambien (Zolpidem Tartrate) 5 Mg Tablet 5 Mg PO QHS Alprazolam 0.5 Mg Tablet 0.5 Mg PO BID FENTANYL 12mcg/hr (Fentanyl) 1 Each Patch.td72 1 Patch TP Q3DAYS Lyrica (Pregabalin) 50 Mg Capsule 1 Cap PO BID Pantoprazole Sodium (Pantoprazole Sodium) 40 Mg Tablet.dr 40 Mg PO DAILY Sertraline Hcl 50 Mg Tablet 50 Mg PO DAILY Amlodipine Besylate 10 Mg Tablet 10 Mg PO DAILY Carvedilol (Carvedilol) 6.25 Mg Tablet 6.25 Mg PO BIDWMEALS Hydrocodone-Apap 5-325 (Hydrocodone Bit/Acetaminophen) 1 Tab Tablet 1 Tab PO PRN Q8HRS PRN Reported Duoneb 0.5-3(2.5) Mg/3 Ml (Albuterol/Ipratropium) 3 Ml Ampul.neb 3 Ml NEB PRN Q4HRS PRN Vitamin D (Cholecalciferol (Vitamin D3)) 1,000 Unit Capsule 1 Cap PO DAILY Multi-Day Vitamins (Multivitamin) 1 Each Tablet 1 Tab PO DAILY Vitals/I & O Vital Sign - Last 24 Hours 09/18/19 09/18/19 09/18/19 09/18/19 15:00 17:30 18:06 19:00 Temp 98.5 99.6 98.5 99.6 Pulse 83 83 89 Resp 18 19 B/P (MAP) 104/49 (67) 104/49 119/57 (77) Pulse Ox 91 91 94 O2 Delivery Nasal Cannula Nasal Cannula Nasal Cannula O2 Flow Rate 3.0 3.0 3.0 09/18/19 09/18/19 09/19/19 09/19/19 20:00 23:23 00:00 03:00 Temp 98.4 97.9 98.4 97.9 Pulse 97 92 Resp 22 22 B/P (MAP) 132/55 (80) 133/55 (81) Pulse Ox 91 94 O2 Delivery Nasal Cannula Nasal Cannula Nasal Cannula Nasal Cannula O2 Flow Rate 4.0 4.0 3.0 4.0 09/19/19 09/19/19 07:54 09:52 Temp 98.6 98.6 Pulse 77 77 Resp 18 B/P (MAP) 122/35 (64) 122/35 Pulse Ox 94 O2 Delivery Nasal Cannula O2 Flow Rate 4.0 Intake and Output 09/18/19 09/18/19 09/19/19 15:00 23:00 07:00 Intake Total 400 ml Output Total 475 ml 300 ml Balance -475 ml 100 ml Justicifation of Admission Dx: Justifications for Admission: Justification of Admission Dx: Yes Nutrition Consultation Dietary Evaluation: Recommendations by RD: Dietary education by RD, Increase Calorie Intake, Protein supplementation Comments: REC ADA/Cardiac diet Glucerna bid Lazarus bid mvi Expected Outcomes/Goals: to meet >75% est nutr needs improved wound status Malnutrition Findings: Food and Nutrition Intake (Mod: <75% est energy req 7days Weight Status: Appropriate KARAN KIMBLE MD Sep 19, 2019 11:51
[2019-09-19] MEDS ORDERED: FUROSEMIDE 40 MG/4 ML VIAL. IVP ONE (12:15)
--- NOTE | 2019-09-19 12:19 | PDOC ---
Infectious Disease Note Subjective: Subjective Patient feels better Shortness of breath Denies fever, nausea, vomiting, diarrhea, abdominal pain, rash Otherwise as above Vital Signs: Vital Signs Vital Signs Date Time Temp Pulse Resp B/P (MAP) Pulse Ox O2 Delivery O2 Flow Rate FiO2 09/19/19 11:49 98.7 98 18 145/51 (82) 96 Nasal Cannula 3.0 98.7 Physical Exam: PHYSICAL EXAM GENERAL: Alert, awake female, lying in bed comfortably, in no acute distress. HEENT: Normocephalic, atraumatic, anicteric. No thrush. Oral mucosa moist. NECK: Supple, no JVD. LUNGS: Clear bilaterally except for decreased breath sound at the bases. No wheezing. No accessory muscle use. HEART: S1, S2. ABDOMEN: Soft, nontender, nondistended. GENITOURINARY: Gray in place. EXTREMITIES: No edema, no cyanosis. Left heel has a wound superficial. No purulence. NEUROLOGIC: Alert, awake. Some weakness. PSYCHIATRIC: Cooperative. Medications: Inpatient Meds: Current Medications Medications (Trade) Dose Ordered Sig/Lindsey Start Time Stop Time Status Last Admin Dose Admin Acetaminophen (Tylenol) 650 mg PRN Q6HRS PRN 09/17/19 16:30 Acetaminophen/ Hydrocodone Bitart (Lortab 5/325) 1 tab PRN TID PRN 09/17/19 16:30 09/18/19 18:06 1 TAB Albuterol Sulfate (Ventolin Neb Soln) 2.5 mg PRN Q4HRS PRN 09/17/19 16:30 Alprazolam (Xanax) 0.5 mg BID 09/17/19 21:00 09/19/19 09:51 0.5 MG Amlodipine Besylate (Norvasc) 5 mg DAILY 09/18/19 09:00 09/18/19 17:02 DC 09/18/19 10:17 5 MG Ascorbic Acid (Vitamin C) 500 mg BID 09/18/19 14:30 09/18/19 23:08 500 MG Aspirin (Ecotrin) 81 mg DAILYWBKFT 09/18/19 08:00 09/19/19 09:51 81 MG Azithromycin (Zithromax) 250 mg DAILY 09/18/19 12:00 09/18/19 12:58 DC Carvedilol (Coreg) 3.125 mg BIDWMEALS 09/18/19 17:30 09/19/19 09:52 3.125 MG Ceftriaxone Sodium (Rocephin) 1 gm Q24H 09/18/19 12:00 09/18/19 13:18 1 GM Docusate Sodium (Colace) 100 mg BID 09/17/19 21:00 09/18/19 17:02 DC 09/18/19 10:17 100 MG Enoxaparin Sodium (Lovenox 40mg Syringe) 40 mg Q24H 09/17/19 21:00 09/18/19 10:16 40 MG Fentanyl (Duragesic 12mcg/ Hr Patch) 1 patch Q3DAYS 09/17/19 17:00 09/17/19 18:37 1 PATCH Furosemide (Lasix) 40 mg 1X ONCE 09/19/19 12:15 09/19/19 12:16 DC Lactobacillus Rhamnosus (Culturelle) 1 cap BID 09/18/19 21:00 09/19/19 09:51 1 CAP Lactulose (Lactulose) 20 gm Q2HR 09/18/19 18:00 09/18/19 20:01 DC 09/18/19 23:09 20 GM Lidocaine (Lidoderm) 2 patch DAILY 09/18/19 17:30 09/19/19 09:53 2 PATCH Miscellaneous (Lidoderm Patch Removal) 1 ea QHS 09/18/19 21:00 Multivitamins (Thera M Plus) 1 tab DAILY 09/18/19 09:00 09/19/19 09:52 1 TAB Ondansetron HCl (Zofran) 4 mg PRN Q8HRS PRN 09/17/19 14:45 09/18/19 14:44 DC 09/18/19 10:15 4 MG Pantoprazole Sodium (Protonix) 40 mg DAILYAC 09/18/19 07:30 09/19/19 09:53 40 MG Polyethylene Glycol (miraLAX PACKET) 17 gm DAILY 09/19/19 11:00 Potassium Chloride (Klor-Con) 20 meq BIDWMEALS 09/18/19 17:30 09/19/19 09:52 20 MEQ Pregabalin (Lyrica) 50 mg BID 09/17/19 21:00 09/19/19 09:51 50 MG Ropinirole HCl (Requip) 1 mg TID 09/18/19 16:15 09/19/19 09:51 1 MG Senna/Docusate Sodium (Senna Plus) 2 tab DAILY 09/19/19 09:00 09/19/19 09:51 2 TAB Sertraline HCl (Zoloft) 100 mg DAILY 09/18/19 09:00 09/19/19 09:53 100 MG Vitamin D (Vitamin D3) 1,000 unit DAILY 09/18/19 09:00 09/19/19 09:52 1,000 UNIT Zolpidem Tartrate (Ambien) 5 mg PRN QHS PRN 09/17/19 16:30 Labs: Lab Laboratory Tests Test 09/18/19 17:12 09/18/19 20:58 09/19/19 07:45 Glucose (Fingerstick) 136 mg/dL (70-99) 116 mg/dL (70-99) White Blood Count 9.9 x10^3/uL (4.0-11.0) Red Blood Count 3.37 x10^6/uL (3.50-5.40) Hemoglobin 7.3 g/dL (12.0-15.5) Hematocrit 24.1 % (36.0-47.0) Mean Corpuscular Volume 72 fL (79-100) Mean Corpuscular Hemoglobin 22 pg (25-35) Mean Corpuscular Hemoglobin Concent 30 g/dL (31-37) Red Cell Distribution Width 17.2 % (11.5-14.5) Platelet Count 189 x10^3/uL (140-400) Neutrophils (%) (Auto) 86 % (31-73) Lymphocytes (%) (Auto) 6 % (24-48) Monocytes (%) (Auto) 7 % (0-9) Eosinophils (%) (Auto) 1 % (0-3) Basophils (%) (Auto) 0 % (0-3) Neutrophils # (Auto) 8.5 x10^3/uL (1.8-7.7) Lymphocytes # (Auto) 0.6 x10^3/uL (1.0-4.8) Monocytes # (Auto) 0.7 x10^3/uL (0.0-1.1) Eosinophils # (Auto) 0.1 x10^3/uL (0.0-0.7) Basophils # (Auto) 0.0 x10^3/uL (0.0-0.2) Sodium Level 141 mmol/L (136-145) Potassium Level 3.8 mmol/L (3.5-5.1) Chloride Level 99 mmol/L (98-107) Carbon Dioxide Level 37 mmol/L (21-32) Anion Gap 5 (6-14) Blood Urea Nitrogen 24 mg/dL (7-20) Creatinine 0.8 mg/dL (0.6-1.0) Estimated GFR (Cockcroft-Gault) 67.7 Glucose Level 107 mg/dL (70-99) Calcium Level 8.8 mg/dL (8.5-10.1) Iron Level 9 ug/dL (50-170) Total Iron Binding Capacity 263 ug/dL (250-450) Iron Saturation 3 % (15-34) Objective: Assessment: 1. Febrile illness. Improved 2. Leukocytosis. 3. Urinary tract infection. 4. Congestive heart failure. 5. Acute hypoxic respiratory failure secondary to congestive heart failure. 6. Anemia. 7. Diabetes mellitus 2. 8. Fibromyalgia. 9. Generalized weakness. 10. COVID negative Plan: Plan of Care Continue Rocephin. Follow up urine and blood cultures. Maintain aspiration precaution. Continue supportive care. Discussed with nursing staff EUSEBIO DARLING MD Sep 19, 2019 12:19
[2019-09-19] MEDS: POLYETHYLENE GLYCOL 3350 17 GM PACKET. PO SCH (12:36)
[2019-09-19] MEDS: cefTRIAXone IV Push 1 GM VIAL. IVP SCH (12:37)
[2019-09-19 15:56] VITALS: BP 111/59
--- NOTE | 2019-09-19 16:12 | NUR ---
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 Wound cleansed and measured. Right posterior heel with a small callous, foam applied for protection. Treatment Recommendations/Plan: Left posterior heel, cleanse with wound wash, cover with hydrofera blue and cover with foam and tape. Change every 3 days. Extra dressing for dressing change on Monday left in pt's room. Education provided: patient on PU prevention Offloading surface/device: heel medix boots and wheelchair cushion ordered. Discharge Recommendations for dressings: same as above, pt to follow up next week with WC after dc.
--- NOTE | 2019-09-19 16:43 | PDOC ---
PROGRESS NOTES Date of Service: DATE: 09/19/19 TIME: 16:43 Subjective Subjective Feeling better. Denied any CP, dyspnea improved Objective Objective Vital Signs Date Time Temp Pulse Resp B/P (MAP) Pulse Ox O2 Delivery O2 Flow Rate FiO2 09/19/19 15:56 98.2 81 18 111/59 (76) 94 Nasal Cannula 3.0 98.2 Intake and Output 09/19/19 07:00 Intake Total 400 ml Output Total 775 ml Balance -375 ml Intake Oral 400 ml Output Urine Total 775 ml Physical Exam Abdomen: Soft Heart: Regular rate, Normal S1, Normal S2 Extremities: No edema General: Alert HEENT: Atraumatic Lungs: Other (decreased breath sounds with few bibasilar crackles) MUSCULOSKELETAL: Osteoarthritic changes both hands Neuro: Normal speech Psych/Mental Status: Mental status NL Skin: No rashes, Other (heel wound) Assessment Assessment 1. Acute on chronic diastolic CHF: recent EF and WM nml. Better compensated with diuresis 2. CAD: moderate lesion to RCA 01/2019 [facility], stable and chest pain free. Continue current secondary preventive measures 3. Moderate mitral stenosis 4. COPD 5. HTN: mildly labile 6. HLP, consider pcsk9 as outpt since she has statin allergy 7. PPM with SSS: [facility]. Vpaced 8. Microcytic hypochromic anemia 9. UTI/leukocytosis/fever, per IM 10. Nontraumatic mechanical fall: tripped, no syncope 11. Covid test negative 12. Leg pain: possibly from fall negative DVT venous doppler. per PCP Follow up in one month . Plan Plan of Care Problems Medical Problems: (1) CAP (community acquired pneumonia) Status: Acute (2) UTI (urinary tract infection) Status: Acute Comment Review of Relevant I have reviewed the following items lizbeth (where applicable) has been applied. Labs Laboratory Tests Test 09/18/19 17:12 09/18/19 20:58 09/19/19 07:45 Glucose (Fingerstick) 136 mg/dL (70-99) 116 mg/dL (70-99) White Blood Count 9.9 x10^3/uL (4.0-11.0) Red Blood Count 3.37 x10^6/uL (3.50-5.40) Hemoglobin 7.3 g/dL (12.0-15.5) Hematocrit 24.1 % (36.0-47.0) Mean Corpuscular Volume 72 fL (79-100) Mean Corpuscular Hemoglobin 22 pg (25-35) Mean Corpuscular Hemoglobin Concent 30 g/dL (31-37) Red Cell Distribution Width 17.2 % (11.5-14.5) Platelet Count 189 x10^3/uL (140-400) Neutrophils (%) (Auto) 86 % (31-73) Lymphocytes (%) (Auto) 6 % (24-48) Monocytes (%) (Auto) 7 % (0-9) Eosinophils (%) (Auto) 1 % (0-3) Basophils (%) (Auto) 0 % (0-3) Neutrophils # (Auto) 8.5 x10^3/uL (1.8-7.7) Lymphocytes # (Auto) 0.6 x10^3/uL (1.0-4.8) Monocytes # (Auto) 0.7 x10^3/uL (0.0-1.1) Eosinophils # (Auto) 0.1 x10^3/uL (0.0-0.7) Basophils # (Auto) 0.0 x10^3/uL (0.0-0.2) Sodium Level 141 mmol/L (136-145) Potassium Level 3.8 mmol/L (3.5-5.1) Chloride Level 99 mmol/L (98-107) Carbon Dioxide Level 37 mmol/L (21-32) Anion Gap 5 (6-14) Blood Urea Nitrogen 24 mg/dL (7-20) Creatinine 0.8 mg/dL (0.6-1.0) Estimated GFR (Cockcroft-Gault) 67.7 Glucose Level 107 mg/dL (70-99) Calcium Level 8.8 mg/dL (8.5-10.1) Iron Level 9 ug/dL (50-170) Total Iron Binding Capacity 263 ug/dL (250-450) Iron Saturation 3 % (15-34) Microbiology 09/17/19 Blood Culture - Preliminary, Resulted NO GROWTH AFTER 2 DAYS Medications Current Medications Carvedilol (Coreg) 3.125 mg BIDWMEALS PO Last administered on 09/19/19at 09:52; Start 09/18/19 at 17:30 Carvedilol (Coreg) 6.25 mg BIDWMEALS PO ; Start 09/19/19 at 08:00; Stop 09/18/19 at 17:02; Status DC Furosemide (Lasix) 40 mg 1X ONCE IVP Last administered on 09/19/19at 12:37; Start 09/19/19 at 12:15; Stop 09/19/19 at 12:16; Status DC Lactobacillus Rhamnosus (Culturelle) 1 cap BID PO Last administered on 09/19/19at 09:51; Start 09/18/19 at 21:00 Lactulose (Lactulose) 20 gm Q2HR PO Last administered on 09/18/19at 23:09; Start 09/18/19 at 18:00; Stop 09/18/19 at 20:01; Status DC Lidocaine (Lidoderm) 2 patch DAILY TD Last administered on 09/19/19at 09:53; Start 09/18/19 at 17:30 Miscellaneous (Lidoderm Patch Removal) 1 ea QHS MC ; Start 09/18/19 at 21:00 Polyethylene Glycol (miraLAX PACKET) 17 gm DAILY PO Last administered on 09/19/19at 12:36; Start 09/19/19 at 11:00 Potassium Chloride (Klor-Con) 20 meq BIDWMEALS PO Last administered on 09/19/19at 09:52; Start 09/18/19 at 17:30 Senna/Docusate Sodium (Senna Plus) 2 tab DAILY PO Last administered on 09/19/19at 09:51; Start 09/19/19 at 09:00 Vitals/I & O Vital Sign - Last 24 Hours 09/18/19 09/18/19 09/18/19 09/18/19 17:30 18:06 19:00 20:00 Temp 99.6 99.6 Pulse 83 89 Resp 19 B/P (MAP) 104/49 119/57 (77) Pulse Ox 91 94 O2 Delivery Nasal Cannula Nasal Cannula Nasal Cannula O2 Flow Rate 3.0 3.0 4.0 09/18/19 09/19/19 09/19/19 09/19/19 23:23 00:00 03:00 07:54 Temp 98.4 97.9 98.6 98.4 97.9 98.6 Pulse 97 92 77 Resp 22 22 18 B/P (MAP) 132/55 (80) 133/55 (81) 122/35 (64) Pulse Ox 91 94 94 O2 Delivery Nasal Cannula Nasal Cannula Nasal Cannula Nasal Cannula O2 Flow Rate 4.0 3.0 4.0 4.0 09/19/19 09/19/19 09/19/19 09:52 11:49 15:56 Temp 98.7 98.2 98.7 98.2 Pulse 77 98 81 Resp 18 18 B/P (MAP) 122/35 145/51 (82) 111/59 (76) Pulse Ox 96 94 O2 Delivery Nasal Cannula Nasal Cannula O2 Flow Rate 3.0 3.0 Intake and Output 09/18/19 09/18/19 09/19/19 15:00 23:00 07:00 Intake Total 400 ml Output Total 475 ml 300 ml Balance -475 ml 100 ml GOLDIE HENRY MD Sep 19, 2019 16:43
--- NOTE | 2019-09-19 17:28 | NUR ---
SW following. Spoke with RN and reviewed chart. Pt from home with 24 hour care. Pt has hired caregivers and does not go through an agency. Spoke with pt and pt's son Tono and pt's dtr-in-law Stacia. Tono is POA for . SW attempted to call pt's primary caregiver Krupa at [phone] per request of pt and family- no answer. Discussed recommendation for HH. Patient Choice of Vendor form completed. Pt has home 02 and is on 3l. Pt remains on IV Rocephin. Referral sent to [facility]. SW to follow.
[2019-09-19 19:00] VITALS: BP 122/55
[2019-09-19] MEDS: ENOXAPARIN 40 MG/0.4 ML SYRINGE. SQ SCH (20:58)
[2019-09-19] MEDS: PATCH REMOVAL. MC SCH (21:00)
[2019-09-19 23:00] VITALS: BP 105/58
[2019-09-20 03:00] VITALS: BP 116/49
[2019-09-20 05:07] LABS: BASO % 0 % (0-3); EOS # 0.2 x10^3/uL (0.0-0.7); EOS % 3 % (0-3); HEMATOCRIT 24.6 % (36.0-47.0); HEMOGLOBIN 7.4 g/dL (12.0-15.5); LYMPH # 0.7 x10^3/uL (1.0-4.8); LYMPH % 8 % (24-48); MEAN CORPUSCULAR HEMOGLOBIN 22 pg (25-35); MEAN CORPUSCULAR HGB CONC 30 g/dL (31-37); MEAN CORPUSCULAR VOLUME 72 fL (79-100); MONO # 0.6 x10^3/uL (0.0-1.1); MONO % 7 % (0-9); NEUT # 7.1 x10^3/uL (1.8-7.7); NEUT % 83 % (31-73); PLATELET COUNT 186 x10^3/uL (140-400); RED BLOOD COUNT 3.42 x10^6/uL (3.50-5.40); RED CELL DISTRIBUTION WIDTH 17.4 % (11.5-14.5); WHITE BLOOD COUNT 8.6 x10^3/uL (4.0-11.0)
[2019-09-20 05:18] LABS: CALCIUM 8.6 mg/dL (8.5-10.1); CREATININE 0.9 mg/dL (0.6-1.0); GFR 59.1; POTASSIUM 4.1 mmol/L (3.5-5.1)
[2019-09-20] MEDS: HYDROcodone/APAP 5/325MG 1 TAB TABLET PO PRN ×2 (06:17→21:51)
[2019-09-20 07:00] VITALS: BP 111/44
--- NOTE | 2019-09-20 08:52 | RAD ---
EXAM: CHEST AP ONLY INDICATION: Reason: CHF / Spl. Instructions: / History: . TECHNIQUE: Single view COMPARISON: 09/17/2019 chest x-ray FINDINGS: Left chest dual-chamber pacemaker is redemonstrated. The heart size is normal. The great vessels appear unremarkable. There is no evidence of hilar or mediastinal mass. Reticular opacities are improved in the interval. There is no pleural effusion or pneumothorax. There are no significant osseous abnormalities. IMPRESSION: Improving reticular opacities in the lungs bilaterally. Electronically signed by: King Hinkle MD (09/20/2019 8:49 AM) [id number]
--- NOTE | 2019-09-20 09:48 | PDOC ---
PULMONARY PROGRESS NOTES DATE: 09/20/19 TIME: 09:45 Subjective Pt. is resting on 2 liters N/C, NO FEVER fever this am, weak no other concerns from nursing Vitals Vital Signs Date Time Temp Pulse Resp B/P (MAP) Pulse Ox O2 Delivery O2 Flow Rate FiO2 09/20/19 07:00 99.0 83 18 111/44 (66) 90 Nasal Cannula 3.0 99.0 ROS: No Nausea, No Chest Pain, No Abdominal Pain, No Increase Cough General: Alert, Oriented X4 Lungs: Clear Cardiovascular: S1, S2 Abdomen: Soft, Non-tender Neuro Exam: Alert Extremities: No Edema Skin: Warm, Dry Labs Laboratory Tests Test 09/18/19 11:52 09/18/19 17:12 09/18/19 20:58 09/19/19 07:45 Glucose (Fingerstick) 139 mg/dL (70-99) 136 mg/dL (70-99) 116 mg/dL (70-99) White Blood Count 9.9 x10^3/uL (4.0-11.0) Red Blood Count 3.37 x10^6/uL (3.50-5.40) Hemoglobin 7.3 g/dL (12.0-15.5) Hematocrit 24.1 % (36.0-47.0) Mean Corpuscular Volume 72 fL (79-100) Mean Corpuscular Hemoglobin 22 pg (25-35) Mean Corpuscular Hemoglobin Concent 30 g/dL (31-37) Red Cell Distribution Width 17.2 % (11.5-14.5) Platelet Count 189 x10^3/uL (140-400) Neutrophils (%) (Auto) 86 % (31-73) Lymphocytes (%) (Auto) 6 % (24-48) Monocytes (%) (Auto) 7 % (0-9) Eosinophils (%) (Auto) 1 % (0-3) Basophils (%) (Auto) 0 % (0-3) Neutrophils # (Auto) 8.5 x10^3/uL (1.8-7.7) Lymphocytes # (Auto) 0.6 x10^3/uL (1.0-4.8) Monocytes # (Auto) 0.7 x10^3/uL (0.0-1.1) Eosinophils # (Auto) 0.1 x10^3/uL (0.0-0.7) Basophils # (Auto) 0.0 x10^3/uL (0.0-0.2) Sodium Level 141 mmol/L (136-145) Potassium Level 3.8 mmol/L (3.5-5.1) Chloride Level 99 mmol/L (98-107) Carbon Dioxide Level 37 mmol/L (21-32) Anion Gap 5 (6-14) Blood Urea Nitrogen 24 mg/dL (7-20) Creatinine 0.8 mg/dL (0.6-1.0) Estimated GFR (Cockcroft-Gault) 67.7 Glucose Level 107 mg/dL (70-99) Calcium Level 8.8 mg/dL (8.5-10.1) Iron Level 9 ug/dL (50-170) Total Iron Binding Capacity 263 ug/dL (250-450) Iron Saturation 3 % (15-34) Test 09/19/19 20:54 09/20/19 04:00 09/20/19 07:34 Glucose (Fingerstick) 165 mg/dL (70-99) 102 mg/dL (70-99) White Blood Count 8.6 x10^3/uL (4.0-11.0) Red Blood Count 3.42 x10^6/uL (3.50-5.40) Hemoglobin 7.4 g/dL (12.0-15.5) Hematocrit 24.6 % (36.0-47.0) Mean Corpuscular Volume 72 fL (79-100) Mean Corpuscular Hemoglobin 22 pg (25-35) Mean Corpuscular Hemoglobin Concent 30 g/dL (31-37) Red Cell Distribution Width 17.4 % (11.5-14.5) Platelet Count 186 x10^3/uL (140-400) Neutrophils (%) (Auto) 83 % (31-73) Lymphocytes (%) (Auto) 8 % (24-48) Monocytes (%) (Auto) 7 % (0-9) Eosinophils (%) (Auto) 3 % (0-3) Basophils (%) (Auto) 0 % (0-3) Neutrophils # (Auto) 7.1 x10^3/uL (1.8-7.7) Lymphocytes # (Auto) 0.7 x10^3/uL (1.0-4.8) Monocytes # (Auto) 0.6 x10^3/uL (0.0-1.1) Eosinophils # (Auto) 0.2 x10^3/uL (0.0-0.7) Basophils # (Auto) 0.0 x10^3/uL (0.0-0.2) Sodium Level 140 mmol/L (136-145) Potassium Level 4.1 mmol/L (3.5-5.1) Chloride Level 99 mmol/L (98-107) Carbon Dioxide Level 39 mmol/L (21-32) Anion Gap 2 (6-14) Blood Urea Nitrogen 26 mg/dL (7-20) Creatinine 0.9 mg/dL (0.6-1.0) Estimated GFR (Cockcroft-Gault) 59.1 Glucose Level 103 mg/dL (70-99) Calcium Level 8.6 mg/dL (8.5-10.1) Magnesium Level 2.0 mg/dL (1.8-2.4) Laboratory Tests Test 09/19/19 20:54 09/20/19 04:00 09/20/19 07:34 Glucose (Fingerstick) 165 mg/dL (70-99) 102 mg/dL (70-99) White Blood Count 8.6 x10^3/uL (4.0-11.0) Red Blood Count 3.42 x10^6/uL (3.50-5.40) Hemoglobin 7.4 g/dL (12.0-15.5) Hematocrit 24.6 % (36.0-47.0) Mean Corpuscular Volume 72 fL (79-100) Mean Corpuscular Hemoglobin 22 pg (25-35) Mean Corpuscular Hemoglobin Concent 30 g/dL (31-37) Red Cell Distribution Width 17.4 % (11.5-14.5) Platelet Count 186 x10^3/uL (140-400) Neutrophils (%) (Auto) 83 % (31-73) Lymphocytes (%) (Auto) 8 % (24-48) Monocytes (%) (Auto) 7 % (0-9) Eosinophils (%) (Auto) 3 % (0-3) Basophils (%) (Auto) 0 % (0-3) Neutrophils # (Auto) 7.1 x10^3/uL (1.8-7.7) Lymphocytes # (Auto) 0.7 x10^3/uL (1.0-4.8) Monocytes # (Auto) 0.6 x10^3/uL (0.0-1.1) Eosinophils # (Auto) 0.2 x10^3/uL (0.0-0.7) Basophils # (Auto) 0.0 x10^3/uL (0.0-0.2) Sodium Level 140 mmol/L (136-145) Potassium Level 4.1 mmol/L (3.5-5.1) Chloride Level 99 mmol/L (98-107) Carbon Dioxide Level 39 mmol/L (21-32) Anion Gap 2 (6-14) Blood Urea Nitrogen 26 mg/dL (7-20) Creatinine 0.9 mg/dL (0.6-1.0) Estimated GFR (Cockcroft-Gault) 59.1 Glucose Level 103 mg/dL (70-99) Calcium Level 8.6 mg/dL (8.5-10.1) Magnesium Level 2.0 mg/dL (1.8-2.4) Medications Active Scripts Medications Dose Route/Sig Max Daily Dose Days Date Category Aspirin 81 Mg Tab.chew 81 Mg PO DAILY 07/15/19 Rx Furosemide 40 Mg Tablet 40 Mg PO DAILY 07/15/19 Rx Klor-Con M20 (Potassium Chloride) 20 Meq Tab.er.prt 20 Meq PO DAILYWBKFT 07/15/19 Rx Ropinirole Hcl 1 Mg Tablet 1 Mg PO TID 07/15/19 Rx Ambien (Zolpidem Tartrate) 5 Mg Tablet 5 Mg PO QHS 07/15/19 Rx Alprazolam 0.5 Mg Tablet 0.5 Mg PO BID 07/15/19 Rx FENTANYL 12mcg/hr (Fentanyl) 1 Each Patch.td72 1 Patch TP Q3DAYS 01/23/19 Rx Lyrica (Pregabalin) 50 Mg Capsule 1 Cap PO BID 01/23/19 Rx Pantoprazole Sodium (Pantoprazole Sodium) 40 Mg Tablet.dr 40 Mg PO DAILY 01/13/19 Rx Sertraline Hcl 50 Mg Tablet 50 Mg PO DAILY 01/13/19 Rx Amlodipine Besylate 10 Mg Tablet 10 Mg PO DAILY 01/13/19 Rx Carvedilol (Carvedilol) 6.25 Mg Tablet 6.25 Mg PO BIDWMEALS 01/13/19 Rx Hydrocodone-Apap 5-325 (Hydrocodone Bit/Acetaminophen) 1 Tab Tablet 1 Tab PO PRN Q8HRS PRN 01/13/19 Rx Duoneb 0.5-3(2.5) Mg/3 Ml (Albuterol/Ipratropium) 3 Ml Ampul.neb 3 Ml NEB PRN Q4HRS PRN 03/13/18 Reported Vitamin D (Cholecalciferol (Vitamin D3)) 1,000 Unit Capsule 1 Cap PO DAILY 06/24/17 Reported Multi-Day Vitamins (Multivitamin) 1 Each Tablet 1 Tab PO DAILY 01/18/16 Reported Comments CXR improving CHF Impression . IMPRESSION: 1. Acute on chronic hypoxic respiratory failure secondary to congestive heart failure. 2. Acute on chronic diastolic heart failure. 3. Clinically, less likely pneumonia. 4. Abnormal chest x-ray with bilateral interstitial infiltrates suggestive of congestive heart failure. 5. No suspicion for COVID. Plan . RECOMMENDATIONS: 1. Continue present oxygen with gradual weaning to keep saturation 92 2. IV diuresis. 3. Follow chest x-ray 09/19 improving CHF 4. Follow cardiology recs -- EF was 55% in 2018 5. Monitor hemoglobin 6. COVID-19 test NEG 7. DVT prophylaxis with Lovenox. 8. Continue antibiotics 9. Discussed with RN. DNR YONI MAILK MD Sep 20, 2019 09:48
[2019-09-20] MEDS ORDERED: FUROSEMIDE 20 MG/2 ML VIAL. IVP ONE (10:15)
--- NOTE | 2019-09-20 10:21 | PDOC ---
PROGRESS NOTES Date of Service DATE: 09/20/19 TIME: 10:19 Subjective Subjective feels better. cxr improved. lab reviewed. Objective Objective Vital Signs Date Time Temp Pulse Resp B/P (MAP) Pulse Ox O2 Delivery O2 Flow Rate FiO2 09/20/19 07:00 99.0 83 18 111/44 (66) 90 Nasal Cannula 3.0 99.0 Intake and Output 09/20/19 07:00 Intake Total 620 ml Output Total 1800 ml Balance -1180 ml Intake Oral 620 ml Output Urine Total 1800 ml # Bowel Movements 2 Physical Exam Abdomen: Soft Heart: Normal S1, Normal S2 General: Alert HEENT: Atraumatic Lungs: Other (decreased breath sounds) Neck: Supple Neuro: Normal speech Psych/Mental Status: Mental status NL Skin: No rashes Assessment Assessment Problems. Acute on chronic diastolic congestive heart failure. 2. Kxkl-ih-xblukhzc mitral stenosis. 3. Acute on chronic hypoxic respiratory failure. 4. Possible pneumonia. 5. Leukocytosis resolved 6. Left heel wound. 7. Fibromyalgia. 8. Chronic obstructive pulmonary disease. 9. Diabetes mellitus type 2 with peripheral neuropathy, treated with diet. 10. Anemia of chronic disease. esophageal dysphagia Medical Problems: (1) CAP (community acquired pneumonia) Status: Acute (2) UTI (urinary tract infection) Status: Acute Plan Plan of Care iv lasix today continue iv rocephin dismiss tomorrow to home Comment Review of Relevant I have reviewed the following items lizbeth (where applicable) has been applied. Labs Laboratory Tests Test 09/18/19 11:52 09/18/19 17:12 09/18/19 20:58 09/19/19 07:45 Glucose (Fingerstick) 139 mg/dL (70-99) 136 mg/dL (70-99) 116 mg/dL (70-99) White Blood Count 9.9 x10^3/uL (4.0-11.0) Red Blood Count 3.37 x10^6/uL (3.50-5.40) Hemoglobin 7.3 g/dL (12.0-15.5) Hematocrit 24.1 % (36.0-47.0) Mean Corpuscular Volume 72 fL (79-100) Mean Corpuscular Hemoglobin 22 pg (25-35) Mean Corpuscular Hemoglobin Concent 30 g/dL (31-37) Red Cell Distribution Width 17.2 % (11.5-14.5) Platelet Count 189 x10^3/uL (140-400) Neutrophils (%) (Auto) 86 % (31-73) Lymphocytes (%) (Auto) 6 % (24-48) Monocytes (%) (Auto) 7 % (0-9) Eosinophils (%) (Auto) 1 % (0-3) Basophils (%) (Auto) 0 % (0-3) Neutrophils # (Auto) 8.5 x10^3/uL (1.8-7.7) Lymphocytes # (Auto) 0.6 x10^3/uL (1.0-4.8) Monocytes # (Auto) 0.7 x10^3/uL (0.0-1.1) Eosinophils # (Auto) 0.1 x10^3/uL (0.0-0.7) Basophils # (Auto) 0.0 x10^3/uL (0.0-0.2) Sodium Level 141 mmol/L (136-145) Potassium Level 3.8 mmol/L (3.5-5.1) Chloride Level 99 mmol/L (98-107) Carbon Dioxide Level 37 mmol/L (21-32) Anion Gap 5 (6-14) Blood Urea Nitrogen 24 mg/dL (7-20) Creatinine 0.8 mg/dL (0.6-1.0) Estimated GFR (Cockcroft-Gault) 67.7 Glucose Level 107 mg/dL (70-99) Calcium Level 8.8 mg/dL (8.5-10.1) Iron Level 9 ug/dL (50-170) Total Iron Binding Capacity 263 ug/dL (250-450) Iron Saturation 3 % (15-34) Test 09/19/19 20:54 09/20/19 04:00 09/20/19 07:34 Glucose (Fingerstick) 165 mg/dL (70-99) 102 mg/dL (70-99) White Blood Count 8.6 x10^3/uL (4.0-11.0) Red Blood Count 3.42 x10^6/uL (3.50-5.40) Hemoglobin 7.4 g/dL (12.0-15.5) Hematocrit 24.6 % (36.0-47.0) Mean Corpuscular Volume 72 fL (79-100) Mean Corpuscular Hemoglobin 22 pg (25-35) Mean Corpuscular Hemoglobin Concent 30 g/dL (31-37) Red Cell Distribution Width 17.4 % (11.5-14.5) Platelet Count 186 x10^3/uL (140-400) Neutrophils (%) (Auto) 83 % (31-73) Lymphocytes (%) (Auto) 8 % (24-48) Monocytes (%) (Auto) 7 % (0-9) Eosinophils (%) (Auto) 3 % (0-3) Basophils (%) (Auto) 0 % (0-3) Neutrophils # (Auto) 7.1 x10^3/uL (1.8-7.7) Lymphocytes # (Auto) 0.7 x10^3/uL (1.0-4.8) Monocytes # (Auto) 0.6 x10^3/uL (0.0-1.1) Eosinophils # (Auto) 0.2 x10^3/uL (0.0-0.7) Basophils # (Auto) 0.0 x10^3/uL (0.0-0.2) Sodium Level 140 mmol/L (136-145) Potassium Level 4.1 mmol/L (3.5-5.1) Chloride Level 99 mmol/L (98-107) Carbon Dioxide Level 39 mmol/L (21-32) Anion Gap 2 (6-14) Blood Urea Nitrogen 26 mg/dL (7-20) Creatinine 0.9 mg/dL (0.6-1.0) Estimated GFR (Cockcroft-Gault) 59.1 Glucose Level 103 mg/dL (70-99) Calcium Level 8.6 mg/dL (8.5-10.1) Magnesium Level 2.0 mg/dL (1.8-2.4) Laboratory Tests Test 09/19/19 20:54 09/20/19 04:00 09/20/19 07:34 Glucose (Fingerstick) 165 mg/dL (70-99) 102 mg/dL (70-99) White Blood Count 8.6 x10^3/uL (4.0-11.0) Red Blood Count 3.42 x10^6/uL (3.50-5.40) Hemoglobin 7.4 g/dL (12.0-15.5) Hematocrit 24.6 % (36.0-47.0) Mean Corpuscular Volume 72 fL (79-100) Mean Corpuscular Hemoglobin 22 pg (25-35) Mean Corpuscular Hemoglobin Concent 30 g/dL (31-37) Red Cell Distribution Width 17.4 % (11.5-14.5) Platelet Count 186 x10^3/uL (140-400) Neutrophils (%) (Auto) 83 % (31-73) Lymphocytes (%) (Auto) 8 % (24-48) Monocytes (%) (Auto) 7 % (0-9) Eosinophils (%) (Auto) 3 % (0-3) Basophils (%) (Auto) 0 % (0-3) Neutrophils # (Auto) 7.1 x10^3/uL (1.8-7.7) Lymphocytes # (Auto) 0.7 x10^3/uL (1.0-4.8) Monocytes # (Auto) 0.6 x10^3/uL (0.0-1.1) Eosinophils # (Auto) 0.2 x10^3/uL (0.0-0.7) Basophils # (Auto) 0.0 x10^3/uL (0.0-0.2) Sodium Level 140 mmol/L (136-145) Potassium Level 4.1 mmol/L (3.5-5.1) Chloride Level 99 mmol/L (98-107) Carbon Dioxide Level 39 mmol/L (21-32) Anion Gap 2 (6-14) Blood Urea Nitrogen 26 mg/dL (7-20) Creatinine 0.9 mg/dL (0.6-1.0) Estimated GFR (Cockcroft-Gault) 59.1 Glucose Level 103 mg/dL (70-99) Calcium Level 8.6 mg/dL (8.5-10.1) Magnesium Level 2.0 mg/dL (1.8-2.4) Microbiology 09/17/19 Blood Culture - Preliminary, Resulted NO GROWTH AFTER 2 DAYS Medications Current Medications Ceftriaxone Sodium (Rocephin) 1 gm 1X ONCE IVP Last administered on 09/17/19at 12:33; Start 09/17/19 at 12:15; Stop 09/17/19 at 12:16; Status DC Azithromycin 250 ml @ 250 mls/hr 1X ONCE IV Last administered on 09/17/19at 12:33; Start 09/17/19 at 12:15; Stop 09/18/19 at 12:58; Status DC Ondansetron HCl (Zofran) 4 mg PRN Q8HRS PRN IV NAUSEA/VOMITING Last administered on 09/18/19at 10:15; Start 09/17/19 at 14:45; Stop 09/18/19 at 14:44; Status DC Ceftriaxone Sodium (Rocephin) 1 gm Q24H IVP Last administered on 09/19/19at 12:37; Start 09/18/19 at 12:00 Azithromycin (Zithromax) 250 mg DAILY PO ; Start 09/18/19 at 12:00; Stop 09/18/19 at 12:58; Status DC Acetaminophen (Tylenol) 650 mg PRN Q6HRS PRN PO MILD PAIN / TEMP > 100.3'F; Start 09/17/19 at 16:30 Albuterol Sulfate (Ventolin Neb Soln) 2.5 mg PRN Q4HRS PRN NEB SHORTNESS OF BREATH; Start 09/17/19 at 16:30 Furosemide (Lasix) 40 mg 1X ONCE IVP Last administered on 09/17/19at 18:36; Start 09/17/19 at 16:30; Stop 09/17/19 at 16:58; Status DC Alprazolam (Xanax) 0.5 mg BID PO Last administered on 09/19/19at 20:57; Start 09/17/19 at 21:00 Amlodipine Besylate (Norvasc) 5 mg DAILY PO Last administered on 09/18/19at 10:17; Start 09/18/19 at 09:00; Stop 09/18/19 at 17:02; Status DC Aspirin (Ecotrin) 81 mg DAILYWBKFT PO Last administered on 09/19/19at 09:51; Start 09/18/19 at 08:00 Carvedilol (Coreg) 6.25 mg BIDWMEALS PO Last administered on 09/18/19at 10:17; Start 09/17/19 at 17:00; Stop 09/18/19 at 14:53; Status DC Docusate Sodium (Colace) 100 mg BID PO Last administered on 09/18/19 10:17; Start 09/17/19 at 21:00; Stop 09/18/19 at 17:02; Status DC Fentanyl (Duragesic 12mcg/ Hr Patch) 1 patch Q3DAYS TD Last administered on 09/17/19 18:37; Start 09/17/19 at 17:00 Acetaminophen/ Hydrocodone Bitart (Lortab 5/325) 1 tab PRN TID PRN PO SEVERE PAIN 7-10 Last administered on 09/20/19 06:17; Start 09/17/19 at 16:30 Vitamin D (Vitamin D3) 1,000 unit DAILY PO Last administered on 09/19/19 09:52; Start 09/18/19 at 09:00 Ropinirole HCl (Requip) 1 mg TID PO Last administered on 09/18/19 10:16; Start 09/17/19 at 21:00; Stop 09/18/19 at 16:01; Status DC Multivitamins (Thera M Plus) 1 tab DAILY PO Last administered on 09/19/19 09:52; Start 09/18/19 at 09:00 Zolpidem Tartrate (Ambien) 5 mg PRN QHS PRN PO INSOMNIA, MAY REPEAT IN 1HR; Start 09/17/19 at 16:30 Pregabalin (Lyrica) 50 mg BID PO Last administered on 09/19/19 20:57; Start 09/17/19 at 21:00 Potassium Chloride (Klor-Con) 20 meq DAILYWBKFT PO Last administered on 09/18/19 10:17; Start 09/18/19 at 08:00; Stop 09/18/19 at 17:02; Status DC Sertraline HCl (Zoloft) 100 mg DAILY PO Last administered on 09/19/19 09:53; Start 09/18/19 at 09:00 Pantoprazole Sodium (Protonix) 40 mg DAILYAC PO Last administered on 09/19/19 09:53; Start 09/18/19 at 07:30 Enoxaparin Sodium (Lovenox 40mg Syringe) 40 mg Q24H SQ Last administered on 09/19/19 20:58; Start 09/17/19 at 21:00 Furosemide (Lasix) 40 mg DAILY IVP Last administered on 09/18/19 10:15; Start 09/18/19 at 09:00; Stop 09/18/19 at 19:20; Status DC Ascorbic Acid (Vitamin C) 500 mg BID PO Last administered on 09/19/19 20:57; Start 09/18/19 at 14:30 Lactobacillus Rhamnosus (Culturelle) 1 cap BID PO Last administered on at 20:57; Start 09/18/19 at 21:00 Carvedilol (Coreg) 6.25 mg BIDWMEALS PO ; Start 09/19/19 at 08:00; Stop 09/18/19 at 17:02; Status DC Ropinirole HCl (Requip) 1 mg TID PO Last administered on 09/19/19 20:57; Start 09/18/19 at 16:15 Carvedilol (Coreg) 3.125 mg BIDWMEALS PO Last administered on 09/19/19at 17:53; Start 09/18/19 at 17:30 Potassium Chloride (Klor-Con) 20 meq BIDWMEALS PO Last administered on 09/19/19at 17:53; Start 09/18/19 at 17:30; Stop 09/20/19 at 10:17; Status DC Lactulose (Lactulose) 20 gm Q2HR PO Last administered on 09/18/19at 23:09; Start 09/18/19 at 18:00; Stop 09/18/19 at 20:01; Status DC Senna/Docusate Sodium (Senna Plus) 2 tab DAILY PO Last administered on 09/19/19at 09:51; Start 09/19/19 at 09:00 Lidocaine (Lidoderm) 2 patch DAILY TD Last administered on 09/19/19at 09:53; Start 09/18/19 at 17:30 Miscellaneous (Lidoderm Patch Removal) 1 ea [facility] ; Start 09/18/19 at 21:00 Polyethylene Glycol (miraLAX PACKET) 17 gm DAILY PO Last administered on 09/19/19at 12:36; Start 09/19/19 at 11:00 Furosemide (Lasix) 40 mg 1X ONCE IVP Last administered on 09/19/19at 12:37; Start 09/19/19 at 12:15; Stop 09/19/19 at 12:16; Status DC Potassium Chloride (Klor-Con) 20 meq DAILY PO ; Start 09/21/19 at 09:00; Status UNV Furosemide (Lasix) 20 mg 1X ONCE IVP ; Start 09/20/19 at 10:15; Stop 09/20/19 at 10:16; Status UNV Active Scripts Active Aspirin 81 Mg Tab.chew 81 Mg PO DAILY Furosemide 40 Mg Tablet 40 Mg PO DAILY Klor-Con M20 (Potassium Chloride) 20 Meq Tab.er.prt 20 Meq PO DAILYWBKFT Ropinirole Hcl 1 Mg Tablet 1 Mg PO TID Ambien (Zolpidem Tartrate) 5 Mg Tablet 5 Mg PO QHS Alprazolam 0.5 Mg Tablet 0.5 Mg PO BID FENTANYL 12mcg/hr (Fentanyl) 1 Each Patch.td72 1 Patch TP Q3DAYS Lyrica (Pregabalin) 50 Mg Capsule 1 Cap PO BID Pantoprazole Sodium (Pantoprazole Sodium) 40 Mg Tablet.dr 40 Mg PO DAILY Sertraline Hcl 50 Mg Tablet 50 Mg PO DAILY Amlodipine Besylate 10 Mg Tablet 10 Mg PO DAILY Carvedilol (Carvedilol) 6.25 Mg Tablet 6.25 Mg PO BIDWMEALS Hydrocodone-Apap 5-325 (Hydrocodone Bit/Acetaminophen) 1 Tab Tablet 1 Tab PO PRN Q8HRS PRN Reported Duoneb 0.5-3(2.5) Mg/3 Ml (Albuterol/Ipratropium) 3 Ml Ampul.neb 3 Ml NEB PRN Q4HRS PRN Vitamin D (Cholecalciferol (Vitamin D3)) 1,000 Unit Capsule 1 Cap PO DAILY Multi-Day Vitamins (Multivitamin) 1 Each Tablet 1 Tab PO DAILY Vitals/I & O Vital Sign - Last 24 Hours 09/19/19 09/19/19 09/19/19 09/19/19 11:49 15:56 17:53 19:00 Temp 98.7 98.2 98.8 98.7 98.2 98.8 Pulse 98 81 81 78 Resp 18 18 20 B/P (MAP) 145/51 (82) 111/59 (76) 111/59 122/55 (77) Pulse Ox 96 94 94 O2 Delivery Nasal Cannula Nasal Cannula O2 Flow Rate 3.0 3.0 09/19/19 09/19/19 09/20/19 09/20/19 20:00 23:00 03:00 06:17 Temp 98.3 98.9 98.3 98.9 Pulse 88 86 Resp 16 18 B/P (MAP) 105/58 (74) 116/49 (71) Pulse Ox 92 93 O2 Delivery Nasal Cannula Nasal Cannula O2 Flow Rate 3.0 3.0 09/20/19 07:00 Temp 99.0 99.0 Pulse 83 Resp 18 B/P (MAP) 111/44 (66) Pulse Ox 90 O2 Delivery Nasal Cannula O2 Flow Rate 3.0 Intake and Output 09/19/19 09/19/19 09/20/19 15:00 23:00 07:00 Intake Total 300 ml 200 ml 120 ml Output Total 1350 ml 450 ml Balance 300 ml -1150 ml -330 ml Justicifation of Admission Dx: Justifications for Admission: Justification of Admission Dx: Yes Nutrition Consultation Dietary Evaluation: Recommendations by RD: Dietary education by RD, Increase Calorie Intake, Prot ein supplementation Comments: REC ADA/Cardiac diet Glucerna bid Lazarus bid mvi Expected Outcomes/Goals: to meet >75% est nutr needs improved wound status Malnutrition Findings: Food and Nutrition Intake (Mod: <75% est energy req 7days Weight Status: Appropriate KARAN KIMBLE MD Sep 20, 2019 10:21
[2019-09-20] MEDS: ALPRAZolam 0.5 MG TABLET PO SCH ×2 (10:49→21:52)
[2019-09-20] MEDS: CARVEDILOL 3.125 MG TABLET. PO SCH ×2 (10:49→17:00)
[2019-09-20] MEDS: PANTOPRAZOLE 40 MG TABLET.DR. PO SCH (10:50)
[2019-09-20] MEDS: ASCORBIC ACID 500 MG TABLET PO SCH ×2 (10:50→21:52)
[2019-09-20] MEDS: MULTIVITAMIN with MINERAL TABLET. PO SCH (10:50)
[2019-09-20] MEDS: PREGABALIN 50 MG CAPSULE PO SCH ×2 (10:50→21:51)
[2019-09-20] MEDS: rOPINIRole 1 MG TABLET. PO SCH ×3 (10:51→21:52)
[2019-09-20] MEDS: LACTOBACILLUS RHAMNOSUS GG 1 CAPSULE. PO SCH ×2 (10:51→21:52)
[2019-09-20] MEDS: SENNOSIDES/DOCUSATE 8.6/50MG TABLET. PO SCH (10:51)
[2019-09-20] MEDS: CHOLECALCIFEROL (VITAMIN D3) 1,000 UNIT TABLET PO SCH (10:51)
[2019-09-20] MEDS: SERTRALINE 50 MG TABLET. PO SCH (10:51)
[2019-09-20] MEDS: ASPIRIN ENTERIC COATED 81 MG TABLET.DR. PO SCH (10:51)
[2019-09-20] MEDS: POLYETHYLENE GLYCOL 3350 17 GM PACKET. PO SCH (10:51)
[2019-09-20] MEDS: LIDOCAINE (700MG/PATCH) PATCH. TD SCH (10:52)
[2019-09-20] MEDS: fentaNYL 12MCG/HR PATCH 1 PATCH PATCH.TD72 TD SCH (10:59)
--- NOTE | 2019-09-20 11:02 | PDOC ---
Infectious Disease Note Subjective: Subjective Patient feels better Shortness of breath Denies fever, nausea, vomiting, diarrhea, abdominal pain, rash Otherwise as above Vital Signs: Vital Signs Vital Signs Date Time Temp Pulse Resp B/P (MAP) Pulse Ox O2 Delivery O2 Flow Rate FiO2 09/20/19 10:49 83 111/44 09/20/19 07:00 99.0 18 90 Nasal Cannula 3.0 99.0 Physical Exam: PHYSICAL EXAM GENERAL: Alert, awake female, lying in bed comfortably, in no acute distress. HEENT: Normocephalic, atraumatic, anicteric. No thrush. Oral mucosa moist. NECK: Supple, no JVD. LUNGS: Clear bilaterally except for decreased breath sound at the bases. No wheezing. No accessory muscle use. HEART: S1, S2. ABDOMEN: Soft, nontender, nondistended. GENITOURINARY: Gray in place. EXTREMITIES: No edema, no cyanosis. Left heel has a wound superficial. No purulence. NEUROLOGIC: Alert, awake. Some weakness. PSYCHIATRIC: Cooperative. Medications: Inpatient Meds: Current Medications Medications (Trade) Dose Ordered Sig/Lindsey Start Time Stop Time Status Last Admin Dose Admin Acetaminophen (Tylenol) 650 mg PRN Q6HRS PRN 09/17/19 16:30 Acetaminophen/ Hydrocodone Bitart (Lortab 5/325) 1 tab PRN TID PRN 09/17/19 16:30 09/20/19 06:17 1 TAB Albuterol Sulfate (Ventolin Neb Soln) 2.5 mg PRN Q4HRS PRN 09/17/19 16:30 Alprazolam (Xanax) 0.5 mg BID 09/17/19 21:00 09/20/19 10:49 0.5 MG Amlodipine Besylate (Norvasc) 5 mg DAILY 09/18/19 09:00 09/18/19 17:02 DC 09/18/19 10:17 5 MG Ascorbic Acid (Vitamin C) 500 mg BID 09/18/19 14:30 09/20/19 10:50 500 MG Aspirin (Ecotrin) 81 mg DAILYWBKFT 09/18/19 08:00 09/20/19 10:51 81 MG Azithromycin (Zithromax) 250 mg DAILY 09/18/19 12:00 8/12/20 12:58 DC Carvedilol (Coreg) 3.125 mg BIDWMEALS 09/18/19 17:30 09/20/19 10:49 3.125 MG Ceftriaxone Sodium (Rocephin) 1 gm Q24H 09/18/19 12:00 09/19/19 12:37 1 GM Docusate Sodium (Colace) 100 mg BID 09/17/19 21:00 09/18/19 17:02 DC 09/18/19 10:17 100 MG Enoxaparin Sodium (Lovenox 40mg Syringe) 40 mg Q24H 09/17/19 21:00 09/19/19 20:58 40 MG Fentanyl (Duragesic 12mcg/ Hr Patch) 1 patch Q3DAYS 09/17/19 17:00 09/20/19 10:59 1 PATCH Furosemide (Lasix) 20 mg 1X ONCE 09/20/19 10:15 09/20/19 10:20 DC 09/20/19 10:52 20 MG Lactobacillus Rhamnosus (Culturelle) 1 cap BID 09/18/19 21:00 09/20/19 10:51 1 CAP Lactulose (Lactulose) 20 gm Q2HR 09/18/19 18:00 09/18/19 20:01 DC 09/18/19 23:09 20 GM Lidocaine (Lidoderm) 2 patch DAILY 09/18/19 17:30 09/20/19 10:52 2 PATCH Miscellaneous (Lidoderm Patch Removal) 1 ea QHS 09/18/19 21:00 Multivitamins (Thera M Plus) 1 tab DAILY 09/18/19 09:00 09/20/19 10:50 1 TAB Ondansetron HCl (Zofran) 4 mg PRN Q8HRS PRN 09/17/19 14:45 09/18/19 14:44 DC 09/18/19 10:15 4 MG Pantoprazole Sodium (Protonix) 40 mg DAILYAC 09/18/19 07:30 09/20/19 10:50 40 MG Polyethylene Glycol (miraLAX PACKET) 17 gm DAILY 09/19/19 11:00 09/20/19 10:51 17 GM Potassium Chloride (Klor-Con) 20 meq DAILYWBKFT 09/21/19 08:00 09/20/19 10:49 20 MEQ Pregabalin (Lyrica) 50 mg BID 09/17/19 21:00 09/20/19 10:50 50 MG Ropinirole HCl (Requip) 1 mg TID 09/18/19 16:15 09/20/19 10:51 1 MG Senna/Docusate Sodium (Senna Plus) 2 tab DAILY 09/19/19 09:00 09/20/19 10:51 2 TAB Sertraline HCl (Zoloft) 100 mg DAILY 09/18/19 09:00 09/20/19 10:51 100 MG Vitamin D (Vitamin D3) 1,000 unit DAILY 09/18/19 09:00 09/20/19 10:51 1,000 UNIT Zolpidem Tartrate (Ambien) 5 mg PRN QHS PRN 09/17/19 16:30 Labs: Lab Laboratory Tests Test 09/19/19 20:54 09/20/19 04:00 09/20/19 07:34 Glucose (Fingerstick) 165 mg/dL (70-99) 102 mg/dL (70-99) White Blood Count 8.6 x10^3/uL (4.0-11.0) Red Blood Count 3.42 x10^6/uL (3.50-5.40) Hemoglobin 7.4 g/dL (12.0-15.5) Hematocrit 24.6 % (36.0-47.0) Mean Corpuscular Volume 72 fL (79-100) Mean Corpuscular Hemoglobin 22 pg (25-35) Mean Corpuscular Hemoglobin Concent 30 g/dL (31-37) Red Cell Distribution Width 17.4 % (11.5-14.5) Platelet Count 186 x10^3/uL (140-400) Neutrophils (%) (Auto) 83 % (31-73) Lymphocytes (%) (Auto) 8 % (24-48) Monocytes (%) (Auto) 7 % (0-9) Eosinophils (%) (Auto) 3 % (0-3) Basophils (%) (Auto) 0 % (0-3) Neutrophils # (Auto) 7.1 x10^3/uL (1.8-7.7) Lymphocytes # (Auto) 0.7 x10^3/uL (1.0-4.8) Monocytes # (Auto) 0.6 x10^3/uL (0.0-1.1) Eosinophils # (Auto) 0.2 x10^3/uL (0.0-0.7) Basophils # (Auto) 0.0 x10^3/uL (0.0-0.2) Sodium Level 140 mmol/L (136-145) Potassium Level 4.1 mmol/L (3.5-5.1) Chloride Level 99 mmol/L (98-107) Carbon Dioxide Level 39 mmol/L (21-32) Anion Gap 2 (6-14) Blood Urea Nitrogen 26 mg/dL (7-20) Creatinine 0.9 mg/dL (0.6-1.0) Estimated GFR (Cockcroft-Gault) 59.1 Glucose Level 103 mg/dL (70-99) Calcium Level 8.6 mg/dL (8.5-10.1) Magnesium Level 2.0 mg/dL (1.8-2.4) Objective: Assessment: 1. Febrile illness. Improved 2. Leukocytosis. 3. Urinary tract infection.UC neg so far 4. Congestive heart failure. 5. Acute hypoxic respiratory failure secondary to congestive heart failure. 6. Anemia. 7. Diabetes mellitus 2. 8. Fibromyalgia. 9. Generalized weakness. 10. COVID negative Plan: Plan of Care Continue Rocephin. Hopefully will be able to transition to p.o. antibiotics tomorrow Follow up urine and blood cultures. Maintain aspiration precaution. Continue supportive care. Discussed with nursing staff EUSEBIO DARLING MD Sep 20, 2019 11:02
[2019-09-20 11:27] VITALS: BP 131/58
--- NOTE | 2019-09-20 12:22 | PDOC ---
Date of Service: DATE: 09/20/19 TIME: 12:19 Subjective: Subjective: On commode. Says swallowing better. Objective: Vital Signs: Vital Signs Date Time Temp Pulse Resp B/P (MAP) Pulse Ox O2 Delivery O2 Flow Rate FiO2 09/20/19 11:27 98.6 95 16 131/58 (82) 92 Nasal Cannula 3.0 98.6 Labs: Laboratory Tests Test 09/19/19 20:54 09/20/19 04:00 09/20/19 07:34 09/20/19 11:42 Glucose (Fingerstick) 165 mg/dL 102 mg/dL 133 mg/dL White Blood Count 8.6 x10^3/uL Red Blood Count 3.42 x10^6/uL Hemoglobin 7.4 g/dL Hematocrit 24.6 % Mean Corpuscular Volume 72 fL Mean Corpuscular Hemoglobin 22 pg Mean Corpuscular Hemoglobin Concent 30 g/dL Red Cell Distribution Width 17.4 % Platelet Count 186 x10^3/uL Neutrophils (%) (Auto) 83 % Lymphocytes (%) (Auto) 8 % Monocytes (%) (Auto) 7 % Eosinophils (%) (Auto) 3 % Basophils (%) (Auto) 0 % Neutrophils # (Auto) 7.1 x10^3/uL Lymphocytes # (Auto) 0.7 x10^3/uL Monocytes # (Auto) 0.6 x10^3/uL Eosinophils # (Auto) 0.2 x10^3/uL Basophils # (Auto) 0.0 x10^3/uL Sodium Level 140 mmol/L Potassium Level 4.1 mmol/L Chloride Level 99 mmol/L Carbon Dioxide Level 39 mmol/L Anion Gap 2 Blood Urea Nitrogen 26 mg/dL Creatinine 0.9 mg/dL Estimated GFR (Cockcroft-Gault) 59.1 Glucose Level 103 mg/dL Calcium Level 8.6 mg/dL Magnesium Level 2.0 mg/dL BLOOD CULTURE Preliminary NO GROWTH AFTER 3 DAYS Imaging: CXR 09/19 IMPRESSION: Improving reticular opacities in the lungs bilaterally. PE: GEN: NAD - on commode NEURO/PSYCH: A & O 3 A/P: CHF, UTI Chronic dysphagia - presbyesophagus, GERD PIA H/o adenomatous gastric polyp CRC screen - colonoscopy 2014 H/o constipation - controlled -- On commode - will return later w/ Dr. [place]. Says better w/ dysphagia diet. Add iron, continue PPI and constipation treatment. Note plans for DC tomorrow. Justicifation of Admission Dx: Justifications for Admission: Justification of Admission Dx: Yes AB BLOUNT Sep 20, 2019 12:22
[2019-09-20] MEDS: cefTRIAXone IV Push 1 GM VIAL. IVP SCH (12:59)
[2019-09-20] MEDS: FERROUS SULFATE 325 MG TABLET. PO SCH (12:59)
[2019-09-20 15:00] VITALS: BP 121/57
--- NOTE | 2019-09-20 17:10 | NUR ---
SW following. Spoke with RN and reviewed chart. Pt from home with 24 hour care. Pt accepted with [facility]. Spoke with Dr. Castelan who stated he will discharge pt tomorrow, 09/21/2019 to home with 24 hour care and HH. SW added pt to the weekend discharge list. Spoke with Molly from [facility] who is aware of weekend discharge. No further SW needs at this time.
[2019-09-20 19:00] VITALS: BP 110/55
[2019-09-20] MEDS: PATCH REMOVAL. MC SCH (21:00)
[2019-09-20] MEDS: ENOXAPARIN 40 MG/0.4 ML SYRINGE. SQ SCH (21:53)
[2019-09-20 23:00] VITALS: BP 103/38
[2019-09-21 03:00] VITALS: BP 116/42
[2019-09-21 07:01] LABS: CALCIUM 9.3 mg/dL (8.5-10.1); CREATININE 0.8 mg/dL (0.6-1.0); GFR 67.7; POTASSIUM 4.3 mmol/L (3.5-5.1)
[2019-09-21 07:05] LABS: BASO % 0 % (0-3); EOS # 0.3 x10^3/uL (0.0-0.7); EOS % 4 % (0-3); HEMATOCRIT 25.4 % (36.0-47.0); HEMOGLOBIN 7.6 g/dL (12.0-15.5); LYMPH % 13 % (24-48); MEAN CORPUSCULAR HEMOGLOBIN 21 pg (25-35); MEAN CORPUSCULAR HGB CONC 30 g/dL (31-37); MEAN CORPUSCULAR VOLUME 72 fL (79-100); MONO # 0.7 x10^3/uL (0.0-1.1); MONO % 10 % (0-9); NEUT # 5.3 x10^3/uL (1.8-7.7); NEUT % 73 % (31-73); PLATELET COUNT 218 x10^3/uL (140-400); RED BLOOD COUNT 3.55 x10^6/uL (3.50-5.40); RED CELL DISTRIBUTION WIDTH 17.3 % (11.5-14.5); WHITE BLOOD COUNT 7.3 x10^3/uL (4.0-11.0)
--- NOTE | 2019-09-21 07:27 | PDOC ---
PULMONARY PROGRESS NOTES DATE: 09/21/19 TIME: 07:27 Subjective on 02 3lpm, sob better, denies cough, on home 02 3lpm no other concerns from nursing Vitals Vital Signs Date Time Temp Pulse Resp B/P (MAP) Pulse Ox O2 Delivery O2 Flow Rate FiO2 09/21/19 03:00 98.1 85 18 116/42 (66) 96 98.1 09/20/19 22:51 Nasal Cannula 3.0 ROS: No Nausea, No Chest Pain, No Abdominal Pain, No Increase Cough General: Alert, Oriented X4 HEENT: Other (nc at [facility] ) Lungs: Clear Cardiovascular: S1, S2 Abdomen: Soft, Non-tender Neuro Exam: Alert Extremities: No Edema Skin: Warm, Dry Labs Laboratory Tests Test 09/19/19 07:45 09/19/19 20:54 09/20/19 04:00 09/20/19 07:34 White Blood Count 9.9 x10^3/uL (4.0-11.0) 8.6 x10^3/uL (4.0-11.0) Red Blood Count 3.37 x10^6/uL (3.50-5.40) 3.42 x10^6/uL (3.50-5.40) Hemoglobin 7.3 g/dL (12.0-15.5) 7.4 g/dL (12.0-15.5) Hematocrit 24.1 % (36.0-47.0) 24.6 % (36.0-47.0) Mean Corpuscular Volume 72 fL (79-100) 72 fL (79-100) Mean Corpuscular Hemoglobin 22 pg (25-35) 22 pg (25-35) Mean Corpuscular Hemoglobin Concent 30 g/dL (31-37) 30 g/dL (31-37) Red Cell Distribution Width 17.2 % (11.5-14.5) 17.4 % (11.5-14.5) Platelet Count 189 x10^3/uL (140-400) 186 x10^3/uL (140-400) Neutrophils (%) (Auto) 86 % (31-73) 83 % (31-73) Lymphocytes (%) (Auto) 6 % (24-48) 8 % (24-48) Monocytes (%) (Auto) 7 % (0-9) 7 % (0-9) Eosinophils (%) (Auto) 1 % (0-3) 3 % (0-3) Basophils (%) (Auto) 0 % (0-3) 0 % (0-3) Neutrophils # (Auto) 8.5 x10^3/uL (1.8-7.7) 7.1 x10^3/uL (1.8-7.7) Lymphocytes # (Auto) 0.6 x10^3/uL (1.0-4.8) 0.7 x10^3/uL (1.0-4.8) Monocytes # (Auto) 0.7 x10^3/uL (0.0-1.1) 0.6 x10^3/uL (0.0-1.1) Eosinophils # (Auto) 0.1 x10^3/uL (0.0-0.7) 0.2 x10^3/uL (0.0-0.7) Basophils # (Auto) 0.0 x10^3/uL (0.0-0.2) 0.0 x10^3/uL (0.0-0.2) Sodium Level 141 mmol/L (136-145) 140 mmol/L (136-145) Potassium Level 3.8 mmol/L (3.5-5.1) 4.1 mmol/L (3.5-5.1) Chloride Level 99 mmol/L (98-107) 99 mmol/L (98-107) Carbon Dioxide Level 37 mmol/L (21-32) 39 mmol/L (21-32) Anion Gap 5 (6-14) 2 (6-14) Blood Urea Nitrogen 24 mg/dL (7-20) 26 mg/dL (7-20) Creatinine 0.8 mg/dL (0.6-1.0) 0.9 mg/dL (0.6-1.0) Estimated GFR (Cockcroft-Gault) 67.7 59.1 Glucose Level 107 mg/dL (70-99) 103 mg/dL (70-99) Calcium Level 8.8 mg/dL (8.5-10.1) 8.6 mg/dL (8.5-10.1) Iron Level 9 ug/dL (50-170) Total Iron Binding Capacity 263 ug/dL (250-450) Iron Saturation 3 % (15-34) Glucose (Fingerstick) 165 mg/dL (70-99) 102 mg/dL (70-99) Magnesium Level 2.0 mg/dL (1.8-2.4) Test 09/20/19 11:42 09/20/19 16:56 09/20/19 21:21 09/21/19 06:15 Glucose (Fingerstick) 133 mg/dL (70-99) 105 mg/dL (70-99) 167 mg/dL (70-99) White Blood Count 7.3 x10^3/uL (4.0-11.0) Red Blood Count 3.55 x10^6/uL (3.50-5.40) Hemoglobin 7.6 g/dL (12.0-15.5) Hematocrit 25.4 % (36.0-47.0) Mean Corpuscular Volume 72 fL (79-100) Mean Corpuscular Hemoglobin 21 pg (25-35) Mean Corpuscular Hemoglobin Concent 30 g/dL (31-37) Red Cell Distribution Width 17.3 % (11.5-14.5) Platelet Count 218 x10^3/uL (140-400) Neutrophils (%) (Auto) 73 % (31-73) Lymphocytes (%) (Auto) 13 % (24-48) Monocytes (%) (Auto) 10 % (0-9) Eosinophils (%) (Auto) 4 % (0-3) Basophils (%) (Auto) 0 % (0-3) Neutrophils # (Auto) 5.3 x10^3/uL (1.8-7.7) Lymphocytes # (Auto) 1.0 x10^3/uL (1.0-4.8) Monocytes # (Auto) 0.7 x10^3/uL (0.0-1.1) Eosinophils # (Auto) 0.3 x10^3/uL (0.0-0.7) Basophils # (Auto) 0.0 x10^3/uL (0.0-0.2) Sodium Level 141 mmol/L (136-145) Potassium Level 4.3 mmol/L (3.5-5.1) Chloride Level 100 mmol/L (98-107) Carbon Dioxide Level 41 mmol/L (21-32) Anion Gap 0 (6-14) Blood Urea Nitrogen 29 mg/dL (7-20) Creatinine 0.8 mg/dL (0.6-1.0) Estimated GFR (Cockcroft-Gault) 67.7 Glucose Level 96 mg/dL (70-99) Calcium Level 9.3 mg/dL (8.5-10.1) Test 09/21/19 07:20 Glucose (Fingerstick) 94 mg/dL (70-99) Laboratory Tests Test 09/20/19 07:34 09/20/19 11:42 09/20/19 16:56 09/20/19 21:21 Glucose (Fingerstick) 102 mg/dL (70-99) 133 mg/dL (70-99) 105 mg/dL (70-99) 167 mg/dL (70-99) Test 09/21/19 06:15 09/21/19 07:20 White Blood Count 7.3 x10^3/uL (4.0-11.0) Red Blood Count 3.55 x10^6/uL (3.50-5.40) Hemoglobin 7.6 g/dL (12.0-15.5) Hematocrit 25.4 % (36.0-47.0) Mean Corpuscular Volume 72 fL (79-100) Mean Corpuscular Hemoglobin 21 pg (25-35) Mean Corpuscular Hemoglobin Concent 30 g/dL (31-37) Red Cell Distribution Width 17.3 % (11.5-14.5) Platelet Count 218 x10^3/uL (140-400) Neutrophils (%) (Auto) 73 % (31-73) Lymphocytes (%) (Auto) 13 % (24-48) Monocytes (%) (Auto) 10 % (0-9) Eosinophils (%) (Auto) 4 % (0-3) Basophils (%) (Auto) 0 % (0-3) Neutrophils # (Auto) 5.3 x10^3/uL (1.8-7.7) Lymphocytes # (Auto) 1.0 x10^3/uL (1.0-4.8) Monocytes # (Auto) 0.7 x10^3/uL (0.0-1.1) Eosinophils # (Auto) 0.3 x10^3/uL (0.0-0.7) Basophils # (Auto) 0.0 x10^3/uL (0.0-0.2) Sodium Level 141 mmol/L (136-145) Potassium Level 4.3 mmol/L (3.5-5.1) Chloride Level 100 mmol/L (98-107) Carbon Dioxide Level 41 mmol/L (21-32) Anion Gap 0 (6-14) Blood Urea Nitrogen 29 mg/dL (7-20) Creatinine 0.8 mg/dL (0.6-1.0) Estimated GFR (Cockcroft-Gault) 67.7 Glucose Level 96 mg/dL (70-99) Calcium Level 9.3 mg/dL (8.5-10.1) Glucose (Fingerstick) 94 mg/dL (70-99) Medications Active Scripts Medications Dose Route/Sig Max Daily Dose Days Date Category Aspirin 81 Mg Tab.chew 81 Mg PO DAILY 07/15/19 Rx Furosemide 40 Mg Tablet 40 Mg PO DAILY 07/15/19 Rx Klor-Con M20 (Potassium Chloride) 20 Meq Tab.er.prt 20 Meq PO DAILYWBKFT 07/15/19 Rx Ropinirole Hcl 1 Mg Tablet 1 Mg PO TID 07/15/19 Rx Ambien (Zolpidem Tartrate) 5 Mg Tablet 5 Mg PO QHS 07/15/19 Rx Alprazolam 0.5 Mg Tablet 0.5 Mg PO BID 07/15/19 Rx FENTANYL 12mcg/hr (Fentanyl) 1 Each Patch.td72 1 Patch TP Q3DAYS 01/23/19 Rx Lyrica (Pregabalin) 50 Mg Capsule 1 Cap PO BID 01/23/19 Rx Pantoprazole Sodium (Pantoprazole Sodium) 40 Mg Tablet.dr 40 Mg PO DAILY 01/13/19 Rx Sertraline Hcl 50 Mg Tablet 50 Mg PO DAILY 01/13/19 Rx Amlodipine Besylate 10 Mg Tablet 10 Mg PO DAILY 01/13/19 Rx Carvedilol (Carvedilol) 6.25 Mg Tablet 6.25 Mg PO BIDWMEALS 01/13/19 Rx Hydrocodone-Apap 5-325 (Hydrocodone Bit/Acetaminophen) 1 Tab Tablet 1 Tab PO PRN Q8HRS PRN 12/8/19 Rx Duoneb 0.5-3(2.5) Mg/3 Ml (Albuterol/Ipratropium) 3 Ml Ampul.neb 3 Ml NEB PRN Q4HRS PRN 03/13/18 Reported Vitamin D (Cholecalciferol (Vitamin D3)) 1,000 Unit Capsule 1 Cap PO DAILY 06/24/17 Reported Multi-Day Vitamins (Multivitamin) 1 Each Tablet 1 Tab PO DAILY 01/18/16 Reported Comments CXR improving CHF Impression . IMPRESSION: 1. Acute on chronic hypoxic respiratory failure secondary to congestive heart failure. 2. Acute on chronic diastolic heart failure. 3. Clinically, less likely pneumonia. 4. Abnormal chest x-ray with bilateral interstitial infiltrates suggestive of congestive heart failure. 5. No suspicion for COVID. Plan . RECOMMENDATIONS: 1. Continue present oxygen with gradual weaning to keep saturation 92 2. diuresis. monitor k, cr 3. Follow chest x-ray 09/19 improving CHF 4. Follow cardiology recs -- EF was 55% in 2018 5. Monitor hemoglobin 6. COVID-19 test NEG 7. DVT prophylaxis with Lovenox. 8. Continue antibiotics for total of 5 days, may change to po 9. Discussed with RN. DNR JUVENAL SONG MD Sep 21, 2019 07:27
[2019-09-21 07:29] VITALS: BP 106/47
[2019-09-21] MEDS ORDERED: POTASSIUM CHLORIDE 20 MEQ TABLET.ER. PO SCH (08:00)
[2019-09-21] MEDS: PANTOPRAZOLE 40 MG TABLET.DR. PO SCH (08:56)
[2019-09-21] MEDS: CHOLECALCIFEROL (VITAMIN D3) 1,000 UNIT TABLET PO SCH (08:56)
[2019-09-21] MEDS: rOPINIRole 1 MG TABLET. PO SCH (08:57)
[2019-09-21] MEDS: CARVEDILOL 3.125 MG TABLET. PO SCH (08:57)
[2019-09-21] MEDS: PREGABALIN 50 MG CAPSULE PO SCH (08:57)
[2019-09-21] MEDS: ASPIRIN ENTERIC COATED 81 MG TABLET.DR. PO SCH (08:57)
[2019-09-21] MEDS: MULTIVITAMIN with MINERAL TABLET. PO SCH (08:57)
[2019-09-21] MEDS: ALPRAZolam 0.5 MG TABLET PO SCH (08:57)
[2019-09-21] MEDS: FERROUS SULFATE 325 MG TABLET. PO SCH (08:57)
[2019-09-21] MEDS: LACTOBACILLUS RHAMNOSUS GG 1 CAPSULE. PO SCH (08:57)
[2019-09-21] MEDS: ASCORBIC ACID 500 MG TABLET PO SCH (08:57)
[2019-09-21] MEDS: SERTRALINE 50 MG TABLET. PO SCH (08:57)
[2019-09-21] MEDS: SENNOSIDES/DOCUSATE 8.6/50MG TABLET. PO SCH (08:58)
[2019-09-21] MEDS: POLYETHYLENE GLYCOL 3350 17 GM PACKET. PO SCH (08:58)
[2019-09-21] MEDS: LIDOCAINE (700MG/PATCH) PATCH. TD SCH (08:58)
[2019-09-21 11:00] VITALS: BP 116/48
--- NOTE | 2019-09-21 11:22 | PDOC ---
PROGRESS NOTES Date of Service DATE: 09/21/19 TIME: 11:20 Subjective Subjective feels better. lab reviewed. not short of breath. wants to go home. Objective Objective Vital Signs Date Time Temp Pulse Resp B/P (MAP) Pulse Ox O2 Delivery O2 Flow Rate FiO2 09/21/19 08:57 82 106/47 09/21/19 08:00 Nasal Cannula 3.0 09/21/19 07:29 98.1 18 96 98.1 Intake and Output 09/21/19 07:00 Intake Total 660 ml Output Total 675 ml Balance -15 ml Intake Oral 660 ml Output Urine Total 675 ml # Voids 2 # Bowel Movements 2 Physical Exam Abdomen: Soft Heart: Regular rate, Normal S1, Normal S2 Extremities: No edema General: Alert HEENT: Atraumatic Lungs: Clear to auscultation Neuro: Normal speech Psych/Mental Status: Mental status NL Skin: No rashes Assessment Assessment Problems Medical Problems: Acute on chronic diastolic congestive heart failure. compensated 2. Zsig-ig-[id number] mitral stenosis. 3. Acute on chronic hypoxic respiratory failure. 4. Possible pneumonia. 5. Leukocytosis resolved 6. Left heel wound. 7. Fibromyalgia. 8. Chronic obstructive pulmonary disease. 9. Diabetes mellitus type 2 with peripheral neuropathy, treated with diet. 10. Anemia of chronic disease. esophageal dysphagia (1) CAP (community acquired pneumonia) Status: Acute (2) UTI (urinary tract infection) Status: Acute Plan Plan of Care switch to oral antibiotic dismiss today Comment Review of Relevant I have reviewed the following items lizbeth (where applicable) has been applied. Labs Laboratory Tests Test 09/19/19 20:54 09/20/19 04:00 09/20/19 07:34 09/20/19 11:42 Glucose (Fingerstick) 165 mg/dL (70-99) 102 mg/dL (70-99) 133 mg/dL (70-99) White Blood Count 8.6 x10^3/uL (4.0-11.0) Red Blood Count 3.42 x10^6/uL (3.50-5.40) Hemoglobin 7.4 g/dL (12.0-15.5) Hematocrit 24.6 % (36.0-47.0) Mean Corpuscular Volume 72 fL (79-100) Mean Corpuscular Hemoglobin 22 pg (25-35) Mean Corpuscular Hemoglobin Concent 30 g/dL (31-37) Red Cell Distribution Width 17.4 % (11.5-14.5) Platelet Count 186 x10^3/uL (140-400) Neutrophils (%) (Auto) 83 % (31-73) Lymphocytes (%) (Auto) 8 % (24-48) Monocytes (%) (Auto) 7 % (0-9) Eosinophils (%) (Auto) 3 % (0-3) Basophils (%) (Auto) 0 % (0-3) Neutrophils # (Auto) 7.1 x10^3/uL (1.8-7.7) Lymphocytes # (Auto) 0.7 x10^3/uL (1.0-4.8) Monocytes # (Auto) 0.6 x10^3/uL (0.0-1.1) Eosinophils # (Auto) 0.2 x10^3/uL (0.0-0.7) Basophils # (Auto) 0.0 x10^3/uL (0.0-0.2) Sodium Level 140 mmol/L (136-145) Potassium Level 4.1 mmol/L (3.5-5.1) Chloride Level 99 mmol/L (98-107) Carbon Dioxide Level 39 mmol/L (21-32) Anion Gap 2 (6-14) Blood Urea Nitrogen 26 mg/dL (7-20) Creatinine 0.9 mg/dL (0.6-1.0) Estimated GFR (Cockcroft-Gault) 59.1 Glucose Level 103 mg/dL (70-99) Calcium Level 8.6 mg/dL (8.5-10.1) Magnesium Level 2.0 mg/dL (1.8-2.4) Test 09/20/19 16:56 09/20/19 21:21 09/21/19 06:15 09/21/19 07:20 Glucose (Fingerstick) 105 mg/dL (70-99) 167 mg/dL (70-99) 94 mg/dL (70-99) White Blood Count 7.3 x10^3/uL (4.0-11.0) Red Blood Count 3.55 x10^6/uL (3.50-5.40) Hemoglobin 7.6 g/dL (12.0-15.5) Hematocrit 25.4 % (36.0-47.0) Mean Corpuscular Volume 72 fL (79-100) Mean Corpuscular Hemoglobin 21 pg (25-35) Mean Corpuscular Hemoglobin Concent 30 g/dL (31-37) Red Cell Distribution Width 17.3 % (11.5-14.5) Platelet Count 218 x10^3/uL (140-400) Neutrophils (%) (Auto) 73 % (31-73) Lymphocytes (%) (Auto) 13 % (24-48) Monocytes (%) (Auto) 10 % (0-9) Eosinophils (%) (Auto) 4 % (0-3) Basophils (%) (Auto) 0 % (0-3) Neutrophils # (Auto) 5.3 x10^3/uL (1.8-7.7) Lymphocytes # (Auto) 1.0 x10^3/uL (1.0-4.8) Monocytes # (Auto) 0.7 x10^3/uL (0.0-1.1) Eosinophils # (Auto) 0.3 x10^3/uL (0.0-0.7) Basophils # (Auto) 0.0 x10^3/uL (0.0-0.2) Sodium Level 141 mmol/L (136-145) Potassium Level 4.3 mmol/L (3.5-5.1) Chloride Level 100 mmol/L (98-107) Carbon Dioxide Level 41 mmol/L (21-32) Anion Gap 0 (6-14) Blood Urea Nitrogen 29 mg/dL (7-20) Creatinine 0.8 mg/dL (0.6-1.0) Estimated GFR (Cockcroft-Gault) 67.7 Glucose Level 96 mg/dL (70-99) Calcium Level 9.3 mg/dL (8.5-10.1) Laboratory Tests Test 09/20/19 11:42 09/20/19 16:56 09/20/19 21:21 09/21/19 06:15 Glucose (Fingerstick) 133 mg/dL (70-99) 105 mg/dL (70-99) 167 mg/dL (70-99) White Blood Count 7.3 x10^3/uL (4.0-11.0) Red Blood Count 3.55 x10^6/uL (3.50-5.40) Hemoglobin 7.6 g/dL (12.0-15.5) Hematocrit 25.4 % (36.0-47.0) Mean Corpuscular Volume 72 fL (79-100) Mean Corpuscular Hemoglobin 21 pg (25-35) Mean Corpuscular Hemoglobin Concent 30 g/dL (31-37) Red Cell Distribution Width 17.3 % (11.5-14.5) Platelet Count 218 x10^3/uL (140-400) Neutrophils (%) (Auto) 73 % (31-73) Lymphocytes (%) (Auto) 13 % (24-48) Monocytes (%) (Auto) 10 % (0-9) Eosinophils (%) (Auto) 4 % (0-3) Basophils (%) (Auto) 0 % (0-3) Neutrophils # (Auto) 5.3 x10^3/uL (1.8-7.7) Lymphocytes # (Auto) 1.0 x10^3/uL (1.0-4.8) Monocytes # (Auto) 0.7 x10^3/uL (0.0-1.1) Eosinophils # (Auto) 0.3 x10^3/uL (0.0-0.7) Basophils # (Auto) 0.0 x10^3/uL (0.0-0.2) Sodium Level 141 mmol/L (136-145) Potassium Level 4.3 mmol/L (3.5-5.1) Chloride Level 100 mmol/L (98-107) Carbon Dioxide Level 41 mmol/L (21-32) Anion Gap 0 (6-14) Blood Urea Nitrogen 29 mg/dL (7-20) Creatinine 0.8 mg/dL (0.6-1.0) Estimated GFR (Cockcroft-Gault) 67.7 Glucose Level 96 mg/dL (70-99) Calcium Level 9.3 mg/dL (8.5-10.1) Test 09/21/19 07:20 Glucose (Fingerstick) 94 mg/dL (70-99) Microbiology 09/17/19 Blood Culture - Preliminary, Resulted NO GROWTH AFTER 3 DAYS 09/17/19 Urine Culture - Final, Complete Medications Current Medications Ceftriaxone Sodium (Rocephin) 1 gm 1X ONCE IVP Last administered on 09/17/19at 12:33; Start 09/17/19 at 12:15; Stop 09/17/19 at 12:16; Status DC Azithromycin 250 ml @ 250 mls/hr 1X ONCE IV Last administered on 09/17/19at 12:33; Start 09/17/19 at 12:15; Stop 09/18/19 at 12:58; Status DC Ondansetron HCl (Zofran) 4 mg PRN Q8HRS PRN IV NAUSEA/VOMITING Last administered on 09/18/19at 10:15; Start 09/17/19 at 14:45; Stop 09/18/19 at 14:44; Status DC Ceftriaxone Sodium (Rocephin) 1 gm Q24H IVP Last administered on 09/20/19at 12:59; Start 09/18/19 at 12:00 Azithromycin (Zithromax) 250 mg DAILY PO ; Start 09/18/19 at 12:00; Stop 09/18/19 at 12:58; Status DC Acetaminophen (Tylenol) 650 mg PRN Q6HRS PRN PO MILD PAIN / TEMP > 100.3'F; Start 09/17/19 at 16:30 Albuterol Sulfate (Ventolin Neb Soln) 2.5 mg PRN Q4HRS PRN NEB SHORTNESS OF BREATH; Start 09/17/19 at 16:30 Furosemide (Lasix) 40 mg 1X ONCE IVP Last administered on 09/17/19at 18:36; Start 09/17/19 at 16:30; Stop 09/17/19 at 16:58; Status DC Alprazolam (Xanax) 0.5 mg BID PO Last administered on 09/21/19at 08:57; Start 09/17/19 at 21:00 Amlodipine Besylate (Norvasc) 5 mg DAILY PO Last administered on 09/18/19at 10:17; Start 09/18/19 at 09:00; Stop 09/18/19 at 17:02; Status DC Aspirin (Ecotrin) 81 mg DAILYWBKFT PO Last administered on 09/21/19at 08:57; Start 09/18/19 at 08:00 Carvedilol (Coreg) 6.25 mg BIDWMEALS PO Last administered on 09/18/19at 10:17; Start 09/17/19 at 17:00; Stop 09/18/19 at 14:53; Status DC Docusate Sodium (Colace) 100 mg BID PO Last administered on 09/18/19at 10:17; Start 09/17/19 at 21:00; Stop 09/18/19 at 17:02; Status DC Fentanyl (Duragesic 12mcg/ Hr Patch) 1 patch Q3DAYS TD Last administered on 09/20/19at 10:59; Start 09/17/19 at 17:00 Acetaminophen/ Hydrocodone Bitart (Lortab 5/325) 1 tab PRN TID PRN PO SEVERE PAIN 7-10 Last administered on 09/20/19at 21:51; Start 09/17/19 at 16:30 Vitamin D (Vitamin D3) 1,000 unit DAILY PO Last administered on 09/21/19at 08:56; Start 09/18/19 at 09:00 Ropinirole HCl (Requip) 1 mg TID PO Last administered on 09/18/19at 10:16; Start 09/17/19 at 21:00; Stop 09/18/19 at 16:01; Status DC Multivitamins (Thera M Plus) 1 tab DAILY PO Last administered on 09/21/19at 08:57; Start 09/18/19 at 09:00 Zolpidem Tartrate (Ambien) 5 mg PRN QHS PRN PO INSOMNIA, MAY REPEAT IN 1HR; Start 09/17/19 at 16:30 Pregabalin (Lyrica) 50 mg BID PO Last administered on 09/21/19at 08:57; Start 09/17/19 at 21:00 Potassium Chloride (Klor-Con) 20 meq DAILYWBKFT PO Last administered on 09/18/19at 10:17; Start 09/18/19 at 08:00; Stop 09/18/19 at 17:02; Status DC Sertraline HCl (Zoloft) 100 mg DAILY PO Last administered on 09/21/19at 08:57; Start 09/18/19 at 09:00 Pantoprazole Sodium (Protonix) 40 mg DAILYAC PO Last administered on 09/21/19at 08:56; Start 09/18/19 at 07:30 Enoxaparin Sodium (Lovenox 40mg Syringe) 40 mg Q24H SQ Last administered on 09/20/19at 21:53; Start 09/17/19 at 21:00 Furosemide (Lasix) 40 mg DAILY IVP Last administered on 09/18/19at 10:15; Start 09/18/19 at 09:00; Stop 09/18/19 at 19:20; Status DC Ascorbic Acid (Vitamin C) 500 mg BID PO Last administered on 09/21/19 08:57; Start 09/18/19 at 14:30 Lactobacillus Rhamnosus (Culturelle) 1 cap BID PO Last administered on 09/21/19 08:57; Start 09/18/19 at 21:00 Carvedilol (Coreg) 6.25 mg BIDWMEALS PO ; Start 09/19/19 at 08:00; Stop 09/18/19 at 17:02; Status DC Ropinirole HCl (Requip) 1 mg TID PO Last administered on 09/21/19at 08:57; Start 09/18/19 at 16:15 Carvedilol (Coreg) 3.125 mg BIDWMEALS PO Last administered on 09/21/19at 08:57; Start 09/18/19 at 17:30 Potassium Chloride (Klor-Con) 20 meq BIDWMEALS PO Last administered on 09/19/19at 17:53; Start 09/18/19 at 17:30; Stop 09/20/19 at 10:17; Status DC Lactulose (Lactulose) 20 gm Q2HR PO Last administered on 09/18/19at 23:09; Start 09/18/19 at 18:00; Stop 09/18/19 at 20:01; Status DC Senna/Docusate Sodium (Senna Plus) 2 tab DAILY PO Last administered on 09/21/19 08:58; Start 09/19/19 at 09:00 Lidocaine (Lidoderm) 2 patch DAILY TD Last administered on 09/21/19 08:58; Start 09/18/19 at 17:30 Miscellaneous (Lidoderm Patch Removal) 1 ea QHS MC Last administered on 09/20/19at 21:00; Start 09/18/19 at 21:00 Polyethylene Glycol (miraLAX PACKET) 17 gm DAILY PO Last administered on 09/21/19at 08:58; Start 09/19/19 at 11:00 Furosemide (Lasix) 40 mg 1X ONCE IVP Last administered on 09/19/19at 12:37; Start 09/19/19 at 12:15; Stop 09/19/19 at 12:16; Status DC Potassium Chloride (Klor-Con) 20 meq DAILYWBKFT PO Last administered on 09/20/19at 10:49; Start 09/21/19 at 08:00 Furosemide (Lasix) 20 mg 1X ONCE IVP Last administered on 09/20/19at 10:52; St art 09/20/19 at 10:15; Stop 09/20/19 at 10:20; Status DC Ferrous Sulfate (Feosol) 325 mg DAILYWBKFT PO Last administered on 09/21/19at 08:57; Start 09/20/19 at 13:00 Active Scripts Active Aspirin 81 Mg Tab.chew 81 Mg PO DAILY Furosemide 40 Mg Tablet 40 Mg PO DAILY Klor-Con M20 (Potassium Chloride) 20 Meq Tab.er.prt 20 Meq PO DAILYWBKFT Ropinirole Hcl 1 Mg Tablet 1 Mg PO TID Ambien (Zolpidem Tartrate) 5 Mg Tablet 5 Mg PO QHS Alprazolam 0.5 Mg Tablet 0.5 Mg PO BID FENTANYL 12mcg/hr (Fentanyl) 1 Each Patch.td72 1 Patch TP Q3DAYS Lyrica (Pregabalin) 50 Mg Capsule 1 Cap PO BID Pantoprazole Sodium (Pantoprazole Sodium) 40 Mg Tablet.dr 40 Mg PO DAILY Sertraline Hcl 50 Mg Tablet 50 Mg PO DAILY Amlodipine Besylate 10 Mg Tablet 10 Mg PO DAILY Carvedilol (Carvedilol) 6.25 Mg Tablet 6.25 Mg PO BIDWMEALS Hydrocodone-Apap 5-325 (Hydrocodone Bit/Acetaminophen) 1 Tab Tablet 1 Tab PO PRN Q8HRS PRN Reported Duoneb 0.5-3(2.5) Mg/3 Ml (Albuterol/Ipratropium) 3 Ml Ampul.neb 3 Ml NEB PRN Q4HRS PRN Vitamin D (Cholecalciferol (Vitamin D3)) 1,000 Unit Capsule 1 Cap PO DAILY Multi-Day Vitamins (Multivitamin) 1 Each Tablet 1 Tab PO DAILY Vitals/I & O Vital Sign - Last 24 Hours 09/20/19 09/20/19 09/20/19/14/20 11:27 12:30 15:00 19:00 Temp 98.6 98.2 98.2 98.6 98.2 98.2 Pulse 95 88 89 Resp 16 18 16 B/P (MAP) 131/58 (82) 121/57 (78) 110/55 (73) Pulse Ox 92 94 92 94 O2 Delivery Nasal Cannula Nasal Cannula Nasal Cannula Nasal Cannula O2 Flow Rate 3.0 3.0 3.0 3.0 09/20/19 09/20/19 09/20/19 09/20/19 20:25 21:51 22:51 23:00 Temp 98.1 98.1 Pulse 78 Resp 20 20 16 B/P (MAP) 103/38 (59) Pulse Ox 98 O2 Delivery Nasal Cannula Room Air Nasal Cannula O2 Flow Rate 3.0 3.0 09/21/19 09/21/19 09/21/19 09/21/19 03:00 07:29 08:00 08:57 Temp 98.1 98.1 98.1 98.1 Pulse 85 82 82 Resp 18 18 B/P (MAP) 116/42 (66) 106/47 (66) 106/47 Pulse Ox 96 96 O2 Delivery Nasal Cannula Nasal Cannula O2 Flow Rate 3.0 3.0 Intake and Output 09/20/19 09/20/19 09/21/19 15:00 23:00 07:00 Intake Total 320 ml 220 ml 120 ml Output Total 300 ml 375 ml Balance 20 ml -155 ml 120 ml Justicifation of Admission Dx: Justifications for Admission: Justification of Admission Dx: Yes Nutrition Consultation Dietary Evaluation: Recommendations by RD: Dietary education by RD, Increase Calorie Intake, Protein supplementation Comments: REC ADA/Cardiac diet Glucerna tid Lazarus bid in ensure pudding mvi Expected Outcomes/Goals: to meet >75% est nutr needs- not met, goal ongoing improved wound status- goal ongoing Malnutrition Findings: Food and Nutrition Intake (Mod: <75% est energy req 7days Weight Status: Appropriate KARAN KIMBLE MD Sep 21, 2019 11:22
[2019-09-21] MEDS ORDERED: CARV3.1210 PO (11:32)
[2019-09-21] MEDS ORDERED: CEPH250C PO (11:32)
[2019-09-21] MEDS ORDERED: ASCO500T4 PO (11:32)
--- NOTE | 2019-09-21 11:35 | SNU/HH DC ---
DISCHARGE WITH HOME HEALTH DISCHARGE INFORMATION: Discharge Date: Sep 21, 2019 Final Diagnosis: Problems acute on chronic diastolic chf Medical Problems: (1) CAP (community acquired pneumonia) Status: Acute (2) UTI (urinary tract infection) Status: Acute Condition on Discharge: Stable CODE STATUS: Code Status: DNR/DNI HOME HEALTH: Face to Face: I certify this patient is under my care and that I, or a nurse practitioner or physician's residential living assistant working with me, had a face to face encounter that meets the physician face to face encounter requirements with this patient on [09/21/19]. RN For Eval/Treatment: Yes Physical Therapy For: Evalulation/Treatment Occupational Therapy For: Evaluation/Treatment Pt Meets Homebound Status: Other: (check bmp every monday and . chf monitoring) POST DISCHARGE ORDERS: Activity Instructions for Disc: Activity as tolerated Weight Bearing Status after Di: As tolerated DIET AFTER DISCHARGE: cardiac and diabetic diet Wound/Incision Care: Change dressing Other wound/incision instructi: heel wound. follow up at [facility] CHECKS AFTER DISCHARGE: Checks after discharge: Check blood press - daily FOLLOW-UP: PCP to follow Home Health: dr. kimble Follow Up With: dr. kimble next week Additional Instructions: bmp every monday and by home health and fax results to dr. kimble., fax [phone] TREATMENT/EQUIPMENT ORDERS: Adaptive Equipment Issued: Wheelchair Discharge Respiratory Equipmen: Oxygen CERTIFICATION STATEMENT: Certification Statement: Certification Statement: Based on the above finding, I certify that this patient is confined to the home and needs intermittent group home care, physical therapy and/or speech therapy, or continues to need occupational therapy.~ This patient is under my care, and I have initiated the establishment of the plan of care.~ This patient will be followed by myself or a community physician who will periodically review the plan of care. Home Meds Active Scripts Ascorbic Acid (VITAMIN C) 500 Mg Tablet, 500 MG PO BID for wound healing, #60 TAB Prov:KARAN KIMBLE MD 09/21/19 Carvedilol (CARVEDILOL ) 3.125 Mg Tablet, 3.125 MG PO BIDWMEALS for HTN, #60 TAB Prov:KARAN KIMBLE MD 09/21/19 Cephalexin (CEPHALEXIN) 250 Mg Capsule, 500 MG PO TID for pneumonia, #15 CAP Prov:KARAN KIMBLE MD 09/21/19 Aspirin (ASPIRIN) 81 Mg Tab.chew, 81 MG PO DAILY for non obstructive CAD, #30 TAB.CHEW Prov:KARAN KIMBLE MD 07/15/19 Furosemide (FUROSEMIDE) 40 Mg Tablet, 40 MG PO DAILY for diuretic for chf, #30 TAB Prov:KARAN KIMBLE MD 07/15/19 Potassium Chloride (KLOR-CON M20) 20 Meq Tab.er.prt, 20 MEQ PO DAILYWBKFT for potassium supplement, #30 TAB.SR Prov:KARAN KIMBLE MD 07/15/19 Ropinirole Hcl (ROPINIROLE HCL) 1 Mg Tablet, 1 MG PO TID for restless legs syndrome, #90 TAB Prov:KARAN KIMBLE MD 07/15/19 Zolpidem Tartrate (AMBIEN) 5 Mg Tablet, 5 MG PO QHS for insomnia, #30 TAB Prov:KARAN KIMBLE MD 07/15/19 Alprazolam (ALPRAZOLAM) 0.5 Mg Tablet, 0.5 MG PO BID for anxiety, #60 TAB Prov:KARAN KIMBLE MD 07/15/19 Fentanyl (FENTANYL 12mcg/hr) 1 Each Patch.td72, 1 PATCH TP Q3DAYS for chronic back pain, #10 PATCH Prov:KARAN KIMBLE MD 01/23/19 Pregabalin (LYRICA) 50 Mg Capsule, 1 CAP PO BID for fibromyalgia, #60 CAP Prov:KARAN KIMBLE MD 01/23/19 Pantoprazole Sodium (PANTOPRAZOLE SODIUM ) 40 Mg Tablet.dr, 40 MG PO DAILY for gerd, #30 TAB.SR Prov:KARAN KIMBLE MD 01/13/19 Sertraline Hcl (SERTRALINE HCL) 50 Mg Tablet, 50 MG PO DAILY for depression, #30 TAB Prov:KARAN KIMBLE MD 01/13/19 Hydrocodone Bit/Acetaminophen (HYDROCODONE-APAP 5-325 ) 1 Tab Tablet, 1 TAB PO PRN Q8HRS PRN for PAIN, #30 TAB 0 Refills Prov:KARAN KIMBLE MD 01/13/19 Reported Medications Ipratropium/Albuterol Sulfate (DUONEB 0.5-3(2.5) MG/3 ML) 3 Ml Ampul.neb, 3 ML NEB PRN Q4HRS PRN for SHORTNESS OF BREATH, EACH 03/13/18 Cholecalciferol (Vitamin D3) (VITAMIN D) 1,000 Unit Capsule, 1 CAP PO DAILY, #30 CAP 3 Refills 06/24/17 Multivitamin (MULTI-DAY VITAMINS) 1 Each Tablet, 1 TAB PO DAILY, #30 TAB 01/18/16 Discontinued Scripts Amlodipine Besylate (AMLODIPINE BESYLATE) 10 Mg Tablet, 10 MG PO DAILY for HTN, #30 TAB Prov:KARAN KIMBLE MD 01/13/19 Carvedilol (CARVEDILOL ) 6.25 Mg Tablet, 6.25 MG PO BIDWMEALS for HTN, #60 TAB Prov:KARAN KIMBLE MD 01/13/19 KARAN KIMBLE MD Sep 21, 2019 11:35
--- NOTE | 2019-09-21 11:40 | PDOC ---
Provider Note Provider Note discharge summary dictated # [id number] Justicifation of Admission Dx: Justifications for Admission: Justification of Admission Dx: Yes KARAN KIMBLE MD Sep 21, 2019 11:40
--- NOTE | 2019-09-21 11:51 | DS ---
DATE OF DISCHARGE: 09/21/2019 CONSULTANTS: Include Dr. Houston, Dr. Reed, Dr. Awais Lubin, and also the liability claims examiner, Dr. Jones. FINAL DIAGNOSES: 1. Acute on chronic diastolic congestive heart failure. 2. Acute on chronic hypoxic respiratory failure. 3. Pneumonia. 4. Leukocytosis. 5. Left heel wound. 6. Fibromyalgia. 7. Chronic obstructive pulmonary disease. 8. Diabetes mellitus type 2 with peripheral neuropathy, treated with diet. 9. Anemia of chronic disease. 10. Esophageal dysphagia. HOSPITAL COURSE: The patient is an 89-year-old white female who has chronic diastolic congestive heart failure with blbj-eu-fzykmqiq mitral regurgitation; chronic hypoxic respiratory failure, maintained on oxygen 2.5 L per nasal cannula at home and has moderate pulmonary hypertension; diabetes mellitus type 2 with peripheral neuropathy, treated with diet; hypertension; hyperlipidemia; statin intolerance; anemia of chronic disease; COPD; nonobstructive coronary artery disease; and fibromyalgia, who noted the onset of hoarseness and a cough productive of white sputum with shortness of breath and hypoxia at home with oxygen saturations in the low 80s increasing her oxygen to 3 L per nasal cannula to try to improve her oxygen to 90%. She was admitted to [facility] with an elevated BNP and bilateral lung infiltrates and leukocytosis of 14.6. She was thought to have khulu-yn-zffqryx diastolic congestive heart failure, pneumonia, treated with IV Rocephin and Zithromax and completed a course of Zithromax and still on IV Rocephin. She received IV Lasix with improvement in her shortness of breath and improvement in her chest x-ray. Her lungs were clear at the time of dismissal, was switched to oral Lasix 40 mg p.o. daily and switched to oral Keflex. She will be dismissed to home with home health with a BNP to be done every Monday and by home health, to be faxed to Dr. Castelan and she will make an appointment to see Dr. Castelan in the office next week, stick to a cardiac diabetic diet, dismissed on Tylenol 650 mg every 6 hours p.r.n., albuterol nebulizer treatments every 4 hours p.r.n. ,and alprazolam 0.5 mg b.i.d. She is off the amlodipine, carvedilol was reduced to 3.125 mg b.i.d., aspirin 81 mg every day, vitamin D 1000 units every day, Colace 100 mg b.i.d., fentanyl 12 mcg patch every 72 hours, furosemide 40 mg p.o. daily, Martha 5/325 one tablet t.i.d. p.r.n. severe pain, Protonix 40 mg every day, potassium chloride 20 mEq every day, Lyrica 50 mg b.i.d., Requip 1 mg t.i.d., sertraline 100 mg every day, and Ambien 5 mg at bedtime. She will have home health and follow up with the [facility] team. KARAN CASTELAN MD DR: KATHY/ben JOB#: [id number] / [id number]
--- NOTE | 2019-09-21 13:18 | NUR ---
Discharge Note: SYBIL AUGUSTINE [place] Discharge instructions and discharge home medications reviewed with Patient and a copy given. All questions have been answered and understanding verbalized. The following instructions and handouts were given: Patient given education regarding new medication and follow ups. Discontinued lines and drains: Iv removed by previous shift. Patient discharged home with home health. Picked up by caregiver.
[2019-09-21] MEDS ORDERED: CEPHALEXIN 250 MG CAPSULE. PO SCH (14:00)
[2019-09-22] MEDS ORDERED: FUROSEMIDE 40 MG TABLET. PO SCH (09:00)
--- NOTE | 2019-09-23 09:26 | NUR ---
patient did discharge over the weekend. SW followed up with Molly from [facility] to make sure pt will be scheduled for HH. No further SW needs at this time.
== END 2019-09-21 13:00 | disposition home health service (06) | DRG 871 ==
LOC: ER 10:03 → 6 SOUTH 13:35 → 5 NORTH 09-19
PROVIDERS: ADMIT Internal Medicine; ATTEND Internal Medicine
DX: A41.9 Sepsis, unspecified organism (principal); I50.33 Acute on chronic diastolic (congestive) heart failure; J96.21 Acute and chronic respiratory failure with hypoxia; J18.9 Pneumonia, unspecified organism; I13.0 Hypertensive heart and chronic kidney disease with heart failure and stage 1 through stage 4 chronic kidney disease, or unspecified chronic kidney disease; N39.0 Urinary tract infection, site not specified; J44.0 Chronic obstructive pulmonary disease with (acute) lower respiratory infection; Z20.828 Contact with and (suspected) exposure to other viral communicable diseases; D50.9 Iron deficiency anemia, unspecified; D63.8 Anemia in other chronic diseases classified elsewhere; E11.22 Type 2 diabetes mellitus with diabetic chronic kidney disease; E11.42 Type 2 diabetes mellitus with diabetic polyneuropathy; E78.5 Hyperlipidemia, unspecified; F32.9 Major depressive disorder, single episode, unspecified; F41.9 Anxiety disorder, unspecified; I05.0 Rheumatic mitral stenosis; I25.10 Atherosclerotic heart disease of native coronary artery without angina pectoris; I27.20 Pulmonary hypertension, unspecified; I49.5 Sick sinus syndrome; K21.9 Gastro-esophageal reflux disease without esophagitis; K22.8 Other specified diseases of esophagus; K59.00 Constipation, unspecified; M1A.9XX0 Chronic gout, unspecified, without tophus (tophi); M79.7 Fibromyalgia; N18.2 Chronic kidney disease, stage 2 (mild); R13.14 Dysphagia, pharyngoesophageal phase; W01.0XXA Fall on same level from slipping, tripping and stumbling without subsequent striking against object, initial encounter; Z66 Do not resuscitate; Z79.82 Long term (current) use of aspirin; Z79.899 Other long term (current) drug therapy; Z87.19 Personal history of other diseases of the digestive system; Z87.440 Personal history of urinary (tract) infections; Z87.891 Personal history of nicotine dependence; Z88.8 Allergy status to other drugs, medicaments and biological substances; Z90.49 Acquired absence of other specified parts of digestive tract; Z90.710 Acquired absence of both cervix and uterus; Z96.641 Presence of right artificial hip joint; Z99.81 Dependence on supplemental oxygen; G89.29 Other chronic pain; M19.90 Unspecified osteoarthritis, unspecified site; Z79.4 Long term (current) use of insulin; Y93.89 Activity, other specified; Y92.89 Other specified places as the place of occurrence of the external cause; Y99.8 Other external cause status
CPT/HCPCS: 36415; 71045; 80048; 80053; 80061; 81001; 82962; 83540; 83550; 83605; 83735; 83880; 84484; 85007; 85025; 87040; 87077; 87086; 87186; 93005; 93970; 94760; 96365; 96366; 96375; 99285; A4314; J0456; J0696; J1650; J1940; J2405; 97530-GP; G0378; U0003-CS

== ENCOUNTER → 2019-11-12 | Outpatient (CLI) | payer MEDICARE ==
--- NOTE | 2019-11-12 11:31 | RAD ---
CT HEAD AND CERVICAL SPINE WO History: Reason: / Spl. Instructions: HEADACHE, NECK PAIN, LEFT SIDE CERVICAL RADICULOPATHY / History: Comparison: Head CT January 08, 2019. Cervical spine CT March 13, 2018. Technique: Noncontrast CT imaging was performed of the head and cervical spine. Coronal and sagittal reconstructions were performed. Exposure: One or more of the following individualized dose reduction techniques were utilized for this examination: 1. Automated exposure control 2. Adjustment of the mA and/or kV according to patient size 3. Use of iterative reconstruction technique. Findings: Head CT: No intracranial hemorrhage. No mass effect. No hydrocephalus. Interval development of chronic appearing infarct within the left inferior occipital lobe. Mild brain parenchymal volume loss. Moderate foci of decreased attenuation within the hemispheric white matter, most often due to chronic microvascular ischemia. Imaged orbits are unremarkable. Imaged paranasal sinuses and mastoid air cells are clear. No acute calvarial fracture. Cervical spine CT: Grade 1 anterolisthesis C4 on C5. Normal vertebral body height. No fracture. C1-C2 degenerative changes with large posterior pannus formation contributing to narrowing at the cervical medullary junction, unchanged. Moderate multilevel degenerative disc changes most prominent C4-C5, C5-C6 and C6-C7. Advanced right greater than left facet arthropathy. Prominent posterior opacification of the C4-C5 level contributing to moderate to severe canal narrowing. Additional multilevel canal narrowing. Multilevel neuroforaminal narrowing. Right upper lobe groundglass opacities partially imaged. Impression: Head CT: 1. Interval development of chronic appearing left inferior occipital infarct although age indeterminate. Recommend MRI to further evaluate. Cervical spine CT: 1. No acute fracture or subluxation of the cervical spine. 2. Multilevel cervical spondylosis most prominent C4-C5. 3. Grade 1 anterolisthesis C4 on C5 contributing to moderate to severe canal narrowing. MRI can better evaluate as clinically warranted. 4. Partially imaged mass opacities within the right upper lobe, may indicate infectious or inflammatory process including viral pneumonia. Electronically signed by: Sumanth Nayak DO (11/12/2019 11:28 AM) [id number]
== END ==
LOC: CT 11:25
PROVIDERS: ATTEND Internal Medicine
DX: M47.22 Other spondylosis with radiculopathy, cervical region (principal); M48.02 Spinal stenosis, cervical region; R91.8 Other nonspecific abnormal finding of lung field; I63.89 Other cerebral infarction
CPT/HCPCS: 70450; 72125

== ENCOUNTER → 2020-02-24 | Outpatient (CLI) | payer MEDICARE ==
[2019-12-12 10:50] VITALS: BP 138/55
[~2020-02-24] MED LIST changes: +AMLO-186 PO; +AMLO-187 PO; -AMLO10TA8 PO; -AMLO5TAB10 PO
--- NOTE | 2020-02-24 14:59 | KCIC ---
EXAM: Cervical spine CT without contrast. HISTORY: Left upper extremity numbness, weakness and pain. TECHNIQUE: Computed tomographic images of the cervical spine were obtained without contrast. Multipla vladimir reformatting was performed. *One or more of the following individualized dose reduction techniques were utilized for this examina tion: 1. Automated exposure control. 2. Adjustment of the mA and/or kV according to patient size. 3. Use of iterative reconstruction technique. COMPARISON: None. FINDINGS: There is cervical kyphosis. There is minimal anterolisthesis of C3 on C4 and mild anterolis thesis of C4 on C5. There is multilevel endplate remodeling with disc space narrowing, osteophytosis and facet arthropathy. There is ossification of the left ligamentum flavum at C4-C5. There is calcifi ed pannus surrounding the dens. There is calcified atherosclerotic plaque and medial deviation of the carotid bifurcations. There is a small to moderate right pleural effusion, partially included on the [id number]-ld-uwjz. At C2-C3, there is a disc bulge and endplate remodeling. There is severe right and mild left facet ar thropathy. There is mild right foraminal stenosis. At C3-C4, there is a disc bulge and endplate osteophytosis. There is moderate to severe bilateral fac et arthropathy. There is pleural uncovertebral arthropathy. There is severe bilateral foraminal steno sis. There is mild central canal stenosis. At C4-C5, there is a left paracentral disc protrusion and osteophyte complex superimposed on a disc b ulge and endplate osteophytosis. There is severe right and moderate left facet arthropathy. There is ossification along the left ligamentum flavum. There is uncovertebral arthropathy. There is moderate bilateral foraminal stenosis. There is moderate central canal stenosis. At C5-C6, there is a left lateral recess to foraminal disc protrusion and osteophyte complex imposed on a disc bulge and endplate osteophytosis. There is moderate bilateral facet arthropathy. There is u ncovertebral arthropathy. There is moderate right and moderate to severe left foraminal stenosis. The re is mild central canal stenosis At C6-C7, there is a disc bulge and endplate osteophytosis. There is moderate left facet arthropathy. There is uncovertebral arthropathy. There is moderate right and severe left foraminal stenosis. Ther e is mild central canal stenosis. IMPRESSION: 1. Multilevel degenerative change involving the cervical spine, described in detail above. This is as sociated with mild right foraminal stenosis at C2-C3, severe viral foraminal and mild central canal s tenosis at C3-C4, moderate bilateral foraminal and central canal stenosis at C4-C5, moderate right an d moderate to severe left foraminal and mild central canal stenosis at C5-C6 and moderate right and s evere left foraminal and mild central canal stenosis at C6-C7. 2. Calcified pannus surrounding the dens. This is nonspecific and can be seen with rheumatoid arthrit is. 3. No acute osseous finding. 4. Small moderate right pleural effusion, partially included on the [id number]-[id number]. Electronically signed by: Ina King MD (02/24/2020 2:56 PM) [id number]
--- NOTE | 2020-02-24 15:04 | KCIC ---
EXAM: Left shoulder, 3 views. HISTORY: Pain. COMPARISON: None. FINDINGS: 3 views of the left shoulder obtained. There is glenohumeral joint space narrowing with deg enerative spurring. There is also acromioclavicular spurring and capsular hypertrophy with associated calcification. There is a cardiac pacemaker generator and leads partially included on the field-of-v iew. There is multilevel degenerative change throughout the visualized cervical spine. IMPRESSION: 1. Mild glenohumeral and moderate acromioclavicular osteoarthritis. 2. Degenerative change involving the cervical spine, not formally assessed on this exam. Electronically signed by: Ina King MD (02/24/2020 3:02 PM) [id number]
== END ==
LOC: KCIC CT 13:55
PROVIDERS: ATTEND Internal Medicine
DX: M19.012 Primary osteoarthritis, left shoulder (principal); M47.812 Spondylosis without myelopathy or radiculopathy, cervical region
CPT/HCPCS: 72125; 73030

== ENCOUNTER 2020-06-10 11:26 | Inpatient (IN) | payer MEDICARE ==
[~2020-06-10] VITALS: Ht 152.4 cm; Wt 94.2 kg
[~2020-06-10 11:26] MED LIST changes: +SERT-267 PO; -SERT50TA8 PO
--- NOTE | 2020-06-10 11:49 | PHYS DOC ---
Past Medical History Past Medical History: Arthritis, Bronchitis, CAD, CHF, Constipation, COPD, Depression, Diabetes-Type II, Fibromyalgia, GERD, Hypertension, Pneumonia, UTI, Other Additional Past Medical Histor: NEUROPATHY Past Surgical History: Appendectomy, Cholecystectomy, Hysterectomy, Pacemaker, Other Additional Past Surgical Histo: NECK/BACK,HIP,EYE,CARPAL TUNNEL Smoking Status: Former Smoker Alcohol Use: None Drug Use: None General Adult EDM: Chief Complaint: SHORTNESS OF BREATH HPI: HPI: Patient is a 89 year old female with history of hypertension, CHF, COPD on oxygen 2 L, diabetes type 2 among other illnesses who presents to the ED today complaining of shortness of breath, symptoms began yesterday. Patient's daughter states she has had shortness of breath worsening in the last 1 week, she states the PCP increased her Lasix to 40 mg p.o. daily but this has not improved her symptoms. Patient denies any fever. Denies any unusual coughing or congestion. Denies any chest pain. Review of Systems: Review of Systems: Constitutional: Denies fever or chills. [] Eyes: Denies change in visual acuity. [] HENT: Denies nasal congestion or sore throat. [] Respiratory: Reports shortness of breath Cardiovascular: Denies chest pain or edema. [] GI: Denies abdominal pain, nausea, vomiting, bloody stools or diarrhea. [] : Denies dysuria. [] Musculoskeletal: Denies back pain or joint pain. [] Integument: Denies rash. [] Neurologic: Denies headache, focal weakness or sensory changes. [] Psychiatric: Denies depression or anxiety. [] Heart Score: C/O Chest Pain: N/A Risk Factors: Risk Factors: DM, Current or recent (<one month) smoker, HTN, HLP, family history of CAD, obesity. Risk Scores: Score 0 - 3: 2.5% MACE over next 6 weeks - Discharge Home Score 4 - 6: 20.3% MACE over next 6 weeks - Admit for Clinical Observation Score 7 - 10: 72.7% MACE over next 6 weeks - Early Invasive Strategies Allergies: Allergies: Allergies Coded Allergies Type Severity Reaction Last Updated Verified Iodinated Contrast Media Allergy Intermediate ITCH 08/05/19 Yes I S O L A T I O N *CONTACT* Allergy Unknown 12/10/19 Yes Physical Exam: PE: Constitutional: Well developed, well nourished, no acute distress, non-toxic appearance. [] HENT: Normocephalic, atraumatic, bilateral external ears normal, oropharynx mo ist, no oral exudates, nose normal. [] Eyes: PERRLA, EOMI, conjunctiva normal, no discharge. [] Neck: Normal range of motion, no tenderness, supple, no stridor. [] Cardiovascular:Heart rate regular rhythm, no murmur [] Lungs & Thorax: Patient is short of air, crackles to posterior lung bases and a nterior lung bases, wheezing. Abdomen: Bowel sounds normal, soft, no tenderness, no masses, no pulsatile ma sses. [] Skin: Warm, dry, no erythema, no rash. [] Back: No tenderness, no CVA tenderness. [] Extremities: No tenderness, no cyanosis, no clubbing, ROM intact, no edema. [] Neurologic: Alert and oriented X 3, normal motor function, normal sensory function, no focal deficits noted. [] Psychologic: Affect normal, judgement normal, mood normal. [] Current Patient Data: Vital Signs: Vital Signs Date Time Temp Pulse Resp B/P (MAP) Pulse Ox O2 Delivery O2 Flow Rate FiO2 06/10/20 11:28 98.4 97 26 144/108 (120) 99 Nasal Cannula 98.4 EKG: EK interpreted by Dr. Pulliam LBBB HR 91 no STEMI[] Radiology/Procedures: Radiology/Procedures: PROCEDURE: PORTABLE CHEST 1V Exam performed: One view chest HISTORY: Shortness of air DATE OF SERVICE: 06/10/2020. COMPARISON: Single view chest from 12/06/[address] angiogram chest from 12/07/2019. Single AP upright portable chest findings and impression : Heart size and mediastinal silhouette is stable. Prominent interstitial markings are seen in both lungs. There are patchy parenchymal opacities in both lungs predominantly lung bases. There is suspected small right effusion. There is a bipolar pacemaker in place. There are degenerative changes about shoulders bilaterally. Electronically signed by: Jane Anderson MD (06/10/2020 12:22 PM) [id number] DICTATED and SIGNED BY: JANE ANDERSON MD DATE: 06/10/20 [id number] Course & Med Decision Making: Course & Med Decision Making Pertinent Labs and Imaging studies reviewed. (See chart for details) This is a 89-year-old female patient presenting to the ED today with shortness of breath, symptoms for 2 days, history of CHF, COPD, oxygen dependent. CBC no acute findings, CMP noted for glucose of 204, anion gap is normal. Chest x-ray noted for small right pleural effusion and patchy infiltrates bilaterally. Patient received Covid vaccine and was also tested for COVID-19. O2 sats have been 99% on 2 L of oxygen which she uses at home Patient was given Rocephin, blood cultures are still pending. Lactic is normal. Spoke to Dr. Castelan who requested we consult pulmonary and admit patient Dragon Disclaimer: Dragon Disclaimer: This electronic medical record was generated, in whole or in part, using a voice recognition dictation system. Departure Departure Impression: Primary Impression: Shortness of breath Additional Impressions: Hyperglycemia Person under investigation for COVID-19 Pneumonia of both lower lobes Qualified Codes: J18.9 - Pneumonia, unspecified organism Disposition: HOME / SELF CARE / HOMELESS Condition: STABLE Referrals: KARAN CASTELAN MD (PCP) [facility] MA[facility] June 10, 2020 11:49
--- NOTE | 2020-06-10 12:24 | RAD ---
Exam performed: One view chest HISTORY: Shortness of air DATE OF SERVICE: 06/10/2020. COMPARISON: Single view chest from 12/06/[address] angiogram chest from 12/07/2019. Single AP upright portable chest findings and impression : Heart size and mediastinal silhouette is stable. Prominent interstitial markings are seen in both fatoumata gs. There are patchy parenchymal opacities in both lungs predominantly lung bases. There is suspected small right effusion. There is a bipolar pacemaker in place. There are degenerative changes about sh oulders bilaterally. Electronically signed by: Jane Anderson MD (06/10/2020 12:22 PM) [id number]
[2020-06-10 13:00] LABS: BASO % 0 % (0-3); EOS # 0.1 x10^3/uL (0.0-0.7); EOS % 1 % (0-3); HEMATOCRIT 36.3 % (36.0-47.0); HEMOGLOBIN 11.9 g/dL (12.0-15.5); LYMPH # 0.4 x10^3/uL (1.0-4.8); LYMPH % 4 % (24-48); MEAN CORPUSCULAR HEMOGLOBIN 30 pg (25-35); MEAN CORPUSCULAR HGB CONC 33 g/dL (31-37); MEAN CORPUSCULAR VOLUME 91 fL (79-100); MONO # 0.4 x10^3/uL (0.0-1.1); MONO % 4 % (0-9); NEUT # 9.7 x10^3/uL (1.8-7.7); NEUT % 91 % (31-73); PLATELET COUNT 152 x10^3/uL (140-400); RED BLOOD COUNT 3.99 x10^6/uL (3.50-5.40); RED CELL DISTRIBUTION WIDTH 14.5 % (11.5-14.5); WHITE BLOOD COUNT 10.7 x10^3/uL (4.0-11.0)
[2020-06-10 13:10] LABS: CALCIUM 8.5 mg/dL (8.5-10.1); CREATININE 0.9 mg/dL (0.6-1.0); GFR 59.1
[2020-06-10 13:15] LABS: ALBUMIN 3.3 g/dL (3.4-5.0); ALBUMIN/GLOBULIN RATIO 0.8 (1.0-1.7); TOTAL BILIRUBIN 0.7 mg/dL (0.2-1.0); TOTAL PROTEIN 7.4 g/dL (6.4-8.2)
[2020-06-10 13:55] VITALS: BP 122/57
[2020-06-10] MEDS ORDERED: ONDANSETRON PF 4 MG/2 ML VIAL. IV PRN (14:15)
[2020-06-10] MEDS ORDERED: ACETAMINOPHEN 325 MG TABLET. PO PRN ×2 (14:15→16:15)
[2020-06-10] MEDS ORDERED: MORPHINE SULFATE 2 MG/ML VIAL. IV PRN (14:15)
[2020-06-10] MEDS ORDERED: methylPREDNISolone SOD SUCC PF 125 MG/2 ML VIAL. IV ONE (14:15)
[2020-06-10] MEDS ORDERED: cefTRIAXone IV Push 1 GM VIAL. IVP ONE (14:30)
[2020-06-10 15:35] LABS: % BANDS 2 % (0-9); % EOS 1 % (0-5); % LYMPHS 2 % (24-48); % MONOS 6 % (0-10); % SEGS 89 % (35-66); PLT ESTIMATE ADEQUATE (ADEQUATE)
[2020-06-10] MEDS ORDERED: FUROSEMIDE 40 MG/4 ML VIAL. IVP ONE (16:15)
[2020-06-10] MEDS ORDERED: traZODone 50 MG TABLET. PO PRN (16:15)
[2020-06-10] MEDS ORDERED: AZITHROMYCIN 250 MG TABLET. PO ONE (16:15)
[2020-06-10] MEDS ORDERED: ZOLPIDEM 5 MG TABLET. PO PRN (16:30)
--- NOTE | 2020-06-10 16:36 | PDOC ---
Provider Note Date of Service: DATE: 06/10/20 TIME: 16:35 Provider Note history and physical dictated # [id number] Justifications for Admission Other Justification KARAN KIMBLE MD June 10, 2020 16:36
[2020-06-10] MEDS: INSULIN LISPRO 300 UNITS/3 ML VIAL. SQ SCH (17:00)
[2020-06-10] MEDS ORDERED: FLUT1DIS3 IH (17:05)
[2020-06-10] MEDS ORDERED: LIDO700A21 TP (17:05)
[2020-06-10] MEDS ORDERED: DULO60CA6 PO (17:05)
[2020-06-10] MEDS ORDERED: CARV3.12 PO (17:05)
[2020-06-10] MEDS ORDERED: HYDR200T71 PO (17:05)
[2020-06-10] MEDS ORDERED: NYST1POW5 MC (17:05)
[2020-06-10] MEDS ORDERED: POLY17PO29 PO (17:05)
[2020-06-10] MEDS ORDERED: SERT-268 PO (17:05)
[2020-06-10] MEDS ORDERED: ALBU2.5V5 NEB (17:05)
[2020-06-10] MEDS ORDERED: MELA5TAB20 PO (17:05)
[2020-06-10] MEDS ORDERED: FURO-68 PO (17:05)
[2020-06-10] MEDS ORDERED: DOCU-109 PO (17:05)
--- NOTE | 2020-06-10 17:34 | HP ---
ADMIT DATE: 06/10/2020 LOCATION: She is in room 250. HISTORY OF PRESENT ILLNESS: The patient is an 89-year-old white female, lives at home and has caregivers who has a history of chronic hypoxic respiratory failure, chronic diastolic congestive heart failure, chronic obstructive pulmonary disease, moderate mitral stenosis, diabetes mellitus type 2, treated with diet, hypertension, fibromyalgia, who notes a 1-week history of increasing shortness of breath, which actually got worsened last night and today. She actually was seen in the office recently and her furosemide was increased from 20 mg daily to 40 mg every day on 05/15/2020. Apparently, her shortness of breath did not improve. She sought out of the [facility] Emergency Room. She has had a cough with some white sputum. She was noted to be wheezing in the emergency room. She was given a dose of IV Solu-Medrol and then also was given IV morphine and IV Rocephin. White count was normal. She had a chest x-ray done in the emergency room, which shows heart size was stable. She had prominent interstitial markings in both lungs, patchy opacities in both lungs, predominantly in the lung bases, suspected small right pleural effusion, pacemaker was seen. Degenerative arthritis of the shoulders were seen. Subsequently, she was admitted to the hospital for further evaluation of her shortness of breath. ALLERGIES: INCLUDE IV IODINE. MEDICATIONS: Prior to admission include Advair 250/50 mcg 1 puff b.i.d., albuterol nebulizer treatments q.i.d. p.r.n., alprazolam 0.5 mg b.i.d., aspirin 81 mg every day, carvedilol 3.125 mg b.i.d., Colace 100 mg b.i.d., Cymbalta 60 mg every day, Fentanyl 12 mcg patch every 72 hours, furosemide 40 mg since here every other day, but apparently was every day and she is on hydrocodone 5/325 one tablet t.i.d. p.r.n. for pain, a lidocaine patch applied daily to her back, Lyrica 50 mg b.i.d., melatonin 5 mg at bedtime, Plaquenil 200 mg b.i.d., potassium chloride 20 mEq every other day, Protonix 40 mg every day, ropinirole 1 mg t.i.d., sertraline is 100 mg every day, vitamin D 1000 units every day. PAST MEDICAL HISTORY: Significant for hospitalization at [facility] for bilateral pneumonia 12/2019. At that time, she also had an E. coli urinary tract infection, acute on chronic hypoxic respiratory failure and she had a chronic obstructive pulmonary disease exacerbation. Noted to have mild to moderate mitral stenosis. She has fibromyalgia. She has diabetes mellitus type 2, mostly treated with diet. Her blood sugars have been under good control. She has chronic hypoxic respiratory failure. She has diabetic peripheral neuropathy. Osteoarthritis, lumbar spondylosis without myelopathy. She has had a hip hemiarthroplasty. She has microalbuminuria with diabetes, history of depression, gastroesophageal reflux disease, chronic obstructive pulmonary disease, chronic diastolic congestive heart failure. She had an esophageal stricture dilated in 2013, had a colonoscopy in April of 2011. At that time, she had colon polyps, internal hemorrhoids. She had cellulitis in the right leg and pneumonia in 2010. She had a cardiac catheterization in 2006, sick sinus syndrome treated with a permanent pacemaker 04/2017. Chronic diastolic congestive heart failure. Cataract extraction, cholecystectomy, hysterectomy, right hip hemiarthroplasty for fracture in 09/2015. Gout, erosive gastritis. SOCIAL HISTORY: She is cared for by a caregiver at home. Does not drink alcohol nor she smokes cigarettes. She is confined to bed in a wheelchair, does not ambulate. FAMILY HISTORY: Noncontributory. REVIEW OF SYSTEMS: GENERAL: She has been no fever, chills or sweats in the last three days. CARDIOVASCULAR: No chest pain. PULMONARY: She is short of breath with some coughing GI: No diarrhea. SKIN: No rashes. She has got some wounds in her lower extremities. Rest of review of systems reviewed and negative except as stated in history of present illness. PHYSICAL EXAMINATION: VITAL SIGNS: Temperature is 98.4 degrees, heart rate is 97, respiratory rate 26, blood pressure was 144/108, oxygen saturation 99%. I do not see a subsequent blood pressure in the chart. Subsequent to that, I think her blood pressure has come down, though. EYES: Gaze is conjugate. NECK: Supple. HEART: Reveals an S1, S2. There is no S3 or murmur. LUNGS: Reveal some crackles in the right lung base with some scattered wheezes. ABDOMEN: Soft with no hepatosplenomegaly, masses or tenderness. EXTREMITIES: Lower extremities, she has got trace edema. Dorsalis pedis pulses are present in both feet, but the right foot feels cool. SKIN: Color looks fine. NEUROLOGIC: Revealed no facial weakness or focal weakness of extremities. LABORATORY DATA: The white count was 10.7, hemoglobin 11.9, platelet count 152,000, 91 polys and 4 lymphocytes. Sodium 140, potassium 4.0, chloride 98, total CO2 of 38, BUN 20, creatinine 0.9, blood sugar was 204. Liver function tests normal. ProBNP was increased to 1042. Albumin 3.3. Procalcitonin was 0.25. Chest x-ray is as stated above, which showed prominent interstitial markings in both lungs and patchy parenchymal opacities in both lungs, predominantly in the lung bases, suspected right pleural effusion and a pacemaker was seen. I do not see an EKG report on the chart. The EKG was ordered. ASSESSMENT: 1. Acute on chronic diastolic congestive heart failure. 2. Acute on chronic hypoxic respiratory failure. 3. Chronic obstructive pulmonary disease with exacerbation. 4. Acute bronchitis. 5. Diabetes mellitus type 2. 6. Mild protein calorie malnutrition. 7. Moderate mitral stenosis. PLAN: At this time is to consult Dr. Reed for Pulmonary, Dr. Escalante for cardiology. We will order Lasix 40 mg IV now and every day. Potassium chloride will be 20 mEq every day. We will put her on Lovenox for deep vein thrombosis prophylaxis. She is a do not resuscitate. I discussed that with her. She had a sputum culture, put her on IV Rocephin and Zithromax. Put her on some Solu-Medrol and DuoNeb nebulizer treatments and budesonide nebulizer treatments for COPD exacerbation. Continue with her other home medications. Put her on insulin sliding scale, because of the Solu-Medrol. Continue the carvedilol for the hypertension. Repeat a CBC, BMP tomorrow. Consider CAT scan of the chest, but will hold off on that until we get her COVID-19 screening test back. It should be noted that she has already received two of her COVID-19 vaccinations already. Thank you very much and we will continue with her oxygen. KATHY/TONYA DR: KATHY/ben TID: [id number]
[2020-06-10] MEDS: CHOLECALCIFEROL (VITAMIN D3) 1,000 UNIT TABLET PO SCH (18:02)
[2020-06-10] MEDS: rOPINIRole 1 MG TABLET. PO SCH ×2 (18:02→21:49)
[2020-06-10] MEDS: CARVEDILOL 3.125 MG TABLET. PO SCH (18:03)
[2020-06-10] MEDS: LIDOCAINE (700MG/PATCH) PATCH. TD SCH (18:05)
[2020-06-10 19:32] VITALS: BP 113/66
[2020-06-10] MEDS: IPRATRPIUM/ALBUTEROL 0.5/2.5MG 3 ML NEBU. NEB SCH (19:44)
[2020-06-10] MEDS: BUDESONIDE 0.5 MG/2 ML NEBU. NEB SCH (19:44)
[2020-06-10] MEDS: PATCH REMOVAL. MC SCH (21:00)
[2020-06-10] MEDS: ENOXAPARIN 40 MG/0.4 ML SYRINGE. SQ SCH (21:48)
[2020-06-10] MEDS: methylPREDNISolone SOD SUCC PF 40 MG/ML VIAL. IV SCH (21:48)
[2020-06-10] MEDS: PREGABALIN 50 MG CAPSULE PO SCH (21:48)
[2020-06-10] MEDS: DOCUSATE SODIUM 100 MG CAPSULE. PO SCH (21:49)
[2020-06-10] MEDS: ALPRAZolam 0.5 MG TABLET PO SCH (21:49)
[2020-06-10] MEDS: HYDROXYCHLOROQUINE 200 MG TABLET PO SCH (21:49)
[2020-06-10 22:58] VITALS: BP 130/56
[2020-06-11 02:42] VITALS: BP 117/63
[2020-06-11] MEDS: HYDROcodone/APAP 5/325MG 1 TAB TABLET PO PRN (04:39)
[2020-06-11 04:47] LABS: BASO % 0 % (0-3); EOS % 0 % (0-3); HEMOGLOBIN 11.3 g/dL (12.0-15.5); LYMPH # 0.4 x10^3/uL (1.0-4.8); LYMPH % 5 % (24-48); MEAN CORPUSCULAR HEMOGLOBIN 29 pg (25-35); MEAN CORPUSCULAR HGB CONC 32 g/dL (31-37); MEAN CORPUSCULAR VOLUME 91 fL (79-100); MONO # 0.1 x10^3/uL (0.0-1.1); MONO % 1 % (0-9); NEUT % 94 % (31-73); PLATELET COUNT 172 x10^3/uL (140-400); RED BLOOD COUNT 3.85 x10^6/uL (3.50-5.40); RED CELL DISTRIBUTION WIDTH 14.6 % (11.5-14.5); WHITE BLOOD COUNT 7.5 x10^3/uL (4.0-11.0)
[2020-06-11 05:09] LABS: ALBUMIN 2.8 g/dL (3.4-5.0); ALBUMIN/GLOBULIN RATIO 0.6 (1.0-1.7); CALCIUM 8.6 mg/dL (8.5-10.1); CREATININE 0.9 mg/dL (0.6-1.0); GFR 59.1; POTASSIUM 4.4 mmol/L (3.5-5.1); TOTAL BILIRUBIN 0.4 mg/dL (0.2-1.0); TOTAL PROTEIN 7.6 g/dL (6.4-8.2)
[2020-06-11 07:00] VITALS: BP 117/63
[2020-06-11] MEDS: IPRATRPIUM/ALBUTEROL 0.5/2.5MG 3 ML NEBU. NEB SCH ×4 (07:21→21:07)
[2020-06-11] MEDS: BUDESONIDE 0.5 MG/2 ML NEBU. NEB SCH ×2 (07:22→21:07)
[2020-06-11] MEDS: INSULIN LISPRO 300 UNITS/3 ML VIAL. SQ SCH ×3 (08:00→17:00)
[2020-06-11] MEDS ORDERED: fentaNYL 12MCG/HR PATCH 1 PATCH PATCH.TD72 TD SCH (09:00)
[2020-06-11] MEDS ORDERED: FUROSEMIDE 40 MG/4 ML VIAL. IVP SCH (09:00)
[2020-06-11] MEDS ORDERED: POTASSIUM CHLORIDE 20 MEQ TABLET.ER. PO SCH (09:00)
[2020-06-11] MEDS: PANTOPRAZOLE 40 MG TABLET.DR. PO SCH (09:36)
[2020-06-11] MEDS: ASPIRIN ENTERIC COATED 81 MG TABLET.DR. PO SCH (09:36)
[2020-06-11] MEDS: DOCUSATE SODIUM 100 MG CAPSULE. PO SCH ×2 (09:36→20:49)
[2020-06-11] MEDS: CHOLECALCIFEROL (VITAMIN D3) 1,000 UNIT TABLET PO SCH (09:36)
[2020-06-11] MEDS: rOPINIRole 1 MG TABLET. PO SCH ×3 (09:37→20:49)
[2020-06-11] MEDS: SERTRALINE 50 MG TABLET. PO SCH (09:37)
[2020-06-11] MEDS: PREGABALIN 50 MG CAPSULE PO SCH ×2 (09:37→20:49)
[2020-06-11] MEDS: CARVEDILOL 3.125 MG TABLET. PO SCH ×2 (09:38→18:29)
[2020-06-11] MEDS: HYDROXYCHLOROQUINE 200 MG TABLET PO SCH ×2 (09:38→20:49)
[2020-06-11] MEDS: DULoxetine HCL 30 MG CAPSULE.DR PO SCH (09:38)
[2020-06-11] MEDS: ALPRAZolam 0.5 MG TABLET PO SCH ×2 (09:38→20:49)
[2020-06-11] MEDS: methylPREDNISolone SOD SUCC PF 40 MG/ML VIAL. IV SCH (09:39)
[2020-06-11] MEDS: LIDOCAINE (700MG/PATCH) PATCH. TD SCH (09:41)
[2020-06-11] MEDS ORDERED: PERFLUTREN PROTEIN-A MICROSPHR 0.22 MG/ML 3 ML VIAL. IV ONE ×2 (10:18→11:00)
--- NOTE | 2020-06-11 10:38 | CONS ---
DATE OF CONSULTATION: 06/11/2020 PULMONARY CONSULTATION ATTENDING PHYSICIAN: Dr. Castelan. REASON FOR CONSULTATION: Respiratory failure, pneumonia. HISTORY OF PRESENT ILLNESS: The patient is an 89-year-old female who has history of chronic hypoxic respiratory failure. She has lately been on 3 liters of oxygen. She does not have any CPAP. She in fact does not tolerate it. She smoked for about 15 years. She has history of diastolic congestive heart failure, history of COPD, history of moderate mitral stenosis, diabetes type 2 and multiple other chronic medical problems. She was brought into the hospital with increasing dyspnea. She also has a cough with white sputum production. No fever, no chills. She was started on IV Rocephin. The patient's chest x-ray was reviewed. This was dated 06/10. The patient has evidence of bilateral interstitial infiltrates. She also had a CT chest previously, which was reviewed by me from 12/07/2019 and at that time, she had bilateral lower lobe consolidation and some interstitial infiltrates. The patient is COVID negative. I have been asked to see her for further evaluation. PAST MEDICAL HISTORY: Significant for history of chronic diastolic heart failure, history of pneumonia, history of E. coli UTI, fibromyalgia, diabetes, history of esophageal stricture, history of colonic polyps, cellulitis, permanent pacemaker, cataract extraction, cholecystectomy, hysterectomy, right hip hemiarthroplasty. SURGERIES: As above. SOCIAL HISTORY: Smoked only for 15 years and this was in her early young age. FAMILY HISTORY: Noncontributory to lungs. REVIEW OF SYSTEMS: A 12-point system obtained. Pertinent positives and discussed in my present illness, otherwise noncontributory. All systems that were negative were reviewed as well. ALLERGIES: IV DYE. MEDICATIONS: All reviewed as listed in the MRAD including Solu-Medrol as well as Lovenox and Lasix. PHYSICAL EXAMINATION: VITAL SIGNS: Reviewed. Pulse ox 91% on 4 liters. NECK: Supple. LUNGS: With few rhonchi. CARDIOVASCULAR: With a regular rate. ABDOMEN: Soft, obese. EXTREMITIES: With no pitting edema. LABORATORY DATA: Reviewed. COVID-19 negative. BUN and creatinine 24 and 0.9, albumin 2.8. White cell count 7.5, hemoglobin 11.3, platelets are 172. IMPRESSION: 1. Acute on chronic hypoxic respiratory failure likely secondary to acute on chronic diastolic congestive heart failure. 2. Clinically less likely pneumonia. 3. Underlying chronic obstructive pulmonary disease. Could be just mild. She smoked for only 15 years. 4. History of chronic diastolic dysfunction as well as moderate mitral stenosis. RECOMMENDATIONS: 1. I have discussed with RN. At this time, I will continue with present oxygen. 2. Continue diuresis. 3. Noncontrast CT chest to better assess for CHF versus pneumonia. 4. Continue empiric antibiotics for now. 5. Follow cardiology recommendation. 6. COVID-19 is negative. 7. We will follow along with you. EMILEE/MILADIS DR: Soraya TID: [id number]
--- NOTE | 2020-06-11 11:26 | PDOC2 ---
CARDIAC CONSULT DATE OF CONSULT Date of Consult DATE: 06/11/20 TIME: 11:01 REASON FOR CONSULT Reason for Consult: CHF REFERRING PHYSICIAN Referring Physician: Flip SOURCE Source: Chart review, Patient HISTORY OF PRESENT ILLNESS HISTORY OF PRESENT ILLNESS This is a pleasant 89 yo female admitted for complains of shortness of breath. Reports that her SOA has been increasing in the last week despite lasix and despite continuous O2 use. Reports of nonproductive cough but no fever or chills. Denies any chest pain and reports that he BP has been good at home. She has been taking her medications regularly. No heavy ingestion of salty foods nor processed foods. No fever or chills. No palpitations and no frequent dizziness. Denies any leg swelling. PAST MEDICAL HISTORY Past Medical History Cardiovascular: CHF, HTN, Hyperlipidemia Pulmonary: COPD, Pneumonia CENTRAL NERVOUS SYSTEM: Periperal neuropathy Heme/Onc: Anemia NOS Psych: Anxiety, Depression Musculoskeletal: low back pain, Osteoarthritis Rheumatologic: Fibromyalgia, Gout Renal/: UTI Endocrine: Diabetes PAST SURGICAL HISTORY Past Surgical History Pacemaker, Appendectomy, Cholecystectomy, Cataract Removal, Total hip replacement, Hysterectomy FAMILY HISTORY Family History: Heart Disease SOCIAL HISTORY Smoke: Quit ALCOHOL: none Drugs: None Lives: with Family CURRENT MEDICATIONS CURRENT MEDICATIONS Current Medications Medications (Trade) Dose Ordered Sig/Lindsey Route PRN Reason Start Time Stop Time Status Last Admin Dose Admin Methylprednisolone Sodium Succinate (SOLU-Medrol 125MG VIAL) 125 mg 1X ONCE IV 06/10/20 14:15 06/10/20 14:20 DC 06/10/20 15:41 Ceftriaxone Sodium (Rocephin) 1 gm 1X ONCE IVP 06/10/20 14:30 06/10/20 14:31 DC 06/10/20 15:41 Furosemide (Lasix) 40 mg DAILY IVP 06/11/20 09:00 06/11/20 09:42 Furosemide (Lasix) 40 mg 1X ONCE IVP 06/10/20 16:15 06/10/20 16:26 DC 06/10/20 18:01 Albuterol/ Ipratropium (Duoneb) 3 ml RTQID NEB 06/10/20 20:00 06/10/20 19:44 Budesonide (Pulmicort) 0.5 mg RTBID NEB 06/10/20 20:00 06/10/20 19:44 Methylprednisolone Sodium Succinate (SOLU-Medrol 40MG VIAL) 40 mg Q12HR IV 06/10/20 21:00 06/11/20 09:39 Azithromycin (Zithromax) 500 mg 1X ONCE PO 06/10/20 16:15 06/10/20 16:26 DC 06/10/20 18:02 Alprazolam (Xanax) 0.5 mg BID PO 06/10/20 21:00 06/11/20 09:38 Aspirin (Ecotrin) 81 mg DAILYWBKFT PO 06/11/20 08:00 06/11/20 09:36 Carvedilol (Coreg) 3.125 mg BIDWMEALS PO 06/10/20 17:00 06/11/20 09:38 Docusate Sodium (Colace) 100 mg BID PO 06/10/20 21:00 06/11/20 09:36 Duloxetine HCl (Cymbalta) 60 mg DAILY PO 06/11/20 09:00 06/11/20 09:38 Fentanyl (Duragesic 12mcg/ Hr Patch) 1 patch Q3DAYS TD 06/11/20 09:00 06/11/20 09:41 Acetaminophen/ Hydrocodone Bitart (Lortab 5/325) 1 tab TID PRN PO SEVERE PAIN 7-10 06/10/20 16:15 06/11/20 04:39 Lidocaine (Lidoderm) 1 patch DAILY TD 06/10/20 17:00 06/11/20 09:41 Miscellaneous (Lidoderm Patch Removal) 1 ea QHS MC 06/10/20 21:00 06/10/20 21:00 Pregabalin (Lyrica) 50 mg BID PO 06/10/20 21:00 06/11/20 09:37 Hydroxychloroquine Sulfate (Plaquenil) 200 mg BID PO 06/10/20 21:00 06/11/20 09:38 Potassium Chloride (Klor-Con) 20 meq DAILY PO 06/11/20 09:00 06/11/20 09:37 Pantoprazole Sodium (Protonix) 40 mg DAILYAC PO 06/11/20 07:30 06/11/20 09:36 Ropinirole HCl (Requip) 1 mg TID PO 06/10/20 17:00 06/11/20 09:37 Sertraline HCl (Zoloft) 100 mg DAILY PO 06/11/20 09:00 06/11/20 09:37 Vitamin D (Vitamin D3) 1,000 unit DAILY PO 06/10/20 17:00 06/11/20 09:36 Enoxaparin Sodium (Lovenox 40mg Syringe) 40 mg Q24H SQ 06/10/20 20:00 06/10/20 21:48 ALLERGIES ALLERGIES: Coded Allergies: Iodinated Contrast Media (Verified Allergy, Intermediate, ITCH, 08/05/19) I S O L A T I O N *CONTACT* (Verified Allergy, Unknown, 12/10/19) ESBL ROS Review of System 14 point ROS evaluated with pertinent positives noted per HPI PHYSICAL EXAM General: Alert, Oriented X3, Cooperative, No acute distress HEENT: Atraumatic, Mucous membr. moist/pink, Other ([place]) Lungs: Other (diminished with faint expiratoyr wheeze ) Heart: Regular rate (V paced) Abdomen: Soft, No tenderness Extremities: No cyanosis, No edema Skin: No breakdown, No significant lesion Neuro: Normal speech, Sensation intact Psych/Mental Status: Mental status NL, Mood NL MUSCULOSKELETAL: Osteoarthritic changes both hands VITALS/I&O VITALS/I&O: Vital Signs Date Time Temp Pulse Resp B/P (MAP) Pulse Ox O2 Delivery O2 Flow Rate FiO2 06/11/20 09:41 91 Nasal Cannula 4.0 06/11/20 09:38 93 117/63 06/11/20 07:00 97.8 28 97.8 I & O 06/10/20 06/10/20 06/11/20 15:00 23:00 07:00 Intake Total 300 ml 0 ml Output Total 150 ml Balance 150 ml 0 ml LABS Lab: Laboratory Tests Test 06/10/20 12:38 06/10/20 15:22 06/10/20 15:30 06/10/20 17:35 White Blood Count 10.7 x10^3/uL (4.0-11.0) Red Blood Count 3.99 x10^6/uL (3.50-5.40) Hemoglobin 11.9 g/dL (12.0-15.5) L Hematocrit 36.3 % (36.0-47.0) Mean Corpuscular Volume 91 fL (79-100) Mean Corpuscular Hemoglobin 30 pg (25-35) Mean Corpuscular Hemoglobin Concent 33 g/dL (31-37) Red Cell Distribution Width 14.5 % (11.5-14.5) Platelet Count 152 x10^3/uL (140-400) Neutrophils (%) (Auto) 91 % (31-73) H Lymphocytes (%) (Auto) 4 % (24-48) L Monocytes (%) (Auto) 4 % (0-9) Eosinophils (%) (Auto) 1 % (0-3) Basophils (%) (Auto) 0 % (0-3) Neutrophils # (Auto) 9.7 x10^3/uL (1.8-7.7) H Lymphocytes # (Auto) 0.4 x10^3/uL (1.0-4.8) L Monocytes # (Auto) 0.4 x10^3/uL (0.0-1.1) Eosinophils # (Auto) 0.1 x10^3/uL (0.0-0.7) Basophils # (Auto) 0.0 x10^3/uL (0.0-0.2) Segmented Neutrophils % 89 % (35-66) H Band Neutrophils % 2 % (0-9) Lymphocytes % 2 % (24-48) L Monocytes % 6 % (0-10) Eosinophils % 1 % (0-5) Platelet Estimate Adequate (ADEQUATE) Sodium Level 140 mmol/L (136-145) Potassium Level 4.0 mmol/L (3.5-5.1) Chloride Level 98 mmol/L (98-107) Carbon Dioxide Level 38 mmol/L (21-32) H Anion Gap 4 (6-14) L Blood Urea Nitrogen 20 mg/dL (7-20) Creatinine 0.9 mg/dL (0.6-1.0) Estimated GFR (Cockcroft-Gault) 59.1 BUN/Creatinine Ratio 22 (6-20) H Glucose Level 204 mg/dL (70-99) H Lactic Acid Level 1.7 mmol/L (0.4-2.0) Calcium Level 8.5 mg/dL (8.5-10.1) Magnesium Level 2.0 mg/dL (1.8-2.4) Total Bilirubin 0.7 mg/dL (0.2-1.0) Aspartate Amino Transferase (AST) 27 U/L (15-37) Alanine Aminotransferase (ALT) 28 U/L (14-59) Alkaline Phosphatase 115 U/L (46-116) Creatine Kinase 136 U/L (26-192) Creatine Kinase MB (Mass) 1.1 ng/mL (0.0-3.6) Creatine Kinase MB Relative Index 0.8 % (0-4) Troponin I Quantitative < 0.017 ng/mL (0.000-0.055) < 0.017 ng/mL (0.000-0.055) BS-Vpa-M-Type Natriuretic Peptide 1042 pg/mL (0-449) H Total Protein 7.4 g/dL (6.4-8.2) Albumin 3.3 g/dL (3.4-5.0) L Albumin/Globulin Ratio 0.8 (1.0-1.7) L Procalcitonin 0.25 ng/mL (0.00-0.10) H SARS-CoV-2 RNA (MAXWELL) Negative (Negative) Glucose (Fingerstick) 123 mg/dL (70-99) H Test 06/10/20 18:00 06/10/20 21:24 06/11/20 03:45 06/11/20 09:15 Troponin I Quantitative < 0.017 ng/mL (0.000-0.055) Glucose (Fingerstick) 201 mg/dL (70-99) H 208 mg/dL (70-99) H White Blood Count 7.5 x10^3/uL (4.0-11.0) Red Blood Count 3.85 x10^6/uL (3.50-5.40) Hemoglobin 11.3 g/dL (12.0-15.5) L Hematocrit 35.0 % (36.0-47.0) L Mean Corpuscular Volume 91 fL (79-100) Mean Corpuscular Hemoglobin 29 pg (25-35) Mean Corpuscular Hemoglobin Concent 32 g/dL (31-37) Red Cell Distribution Width 14.6 % (11.5-14.5) H Platelet Count 172 x10^3/uL (140-400) Neutrophils (%) (Auto) 94 % (31-73) H Lymphocytes (%) (Auto) 5 % (24-48) L Monocytes (%) (Auto) 1 % (0-9) Eosinophils (%) (Auto) 0 % (0-3) Basophils (%) (Auto) 0 % (0-3) Neutrophils # (Auto) 7.0 x10^3/uL (1.8-7.7) Lymphocytes # (Auto) 0.4 x10^3/uL (1.0-4.8) L Monocytes # (Auto) 0.1 x10^3/uL (0.0-1.1) Eosinophils # (Auto) 0.0 x10^3/uL (0.0-0.7) Basophils # (Auto) 0.0 x10^3/uL (0.0-0.2) Sodium Level 139 mmol/L (136-145) Potassium Level 4.4 mmol/L (3.5-5.1) Chloride Level 98 mmol/L (98-107) Carbon Dioxide Level 37 mmol/L (21-32) H Anion Gap 4 (6-14) L Blood Urea Nitrogen 24 mg/dL (7-20) H Creatinine 0.9 mg/dL (0.6-1.0) Estimated GFR (Cockcroft-Gault) 59.1 BUN/Creatinine Ratio 27 (6-20) H Glucose Level 175 mg/dL (70-99) H Calcium Level 8.6 mg/dL (8.5-10.1) Total Bilirubin 0.4 mg/dL (0.2-1.0) Aspartate Amino Transferase (AST) 20 U/L (15-37) Alanine Aminotransferase (ALT) 21 U/L (14-59) Alkaline Phosphatase 99 U/L (46-116) Total Protein 7.6 g/dL (6.4-8.2) Albumin 2.8 g/dL (3.4-5.0) L Albumin/Globulin Ratio 0.6 (1.0-1.7) L Laboratory Tests 06/10/20 12:38 06/11/20 03:45 Laboratory Tests 06/10/20 12:38 06/11/20 03:45 ECHOCARDIOGRAM ECHOCARDIOGRAM <Conclusion> The left ventricle is normal size. The left ventricular systolic function is normal and the ejection fraction is within normal range. The Ejection Fraction is 60-65%. There is a pacemaker lead in the right ventricle. Doppler and Color Flow revealed no significant aortic regurgitation. There is no significant aortic valvular stenosis. There is moderate mitral valve stenosis. Calculated mitral valve area is 1.7 cm2 with maximum pressure gradient of 12 mmHg and mean pressure gradient of 7 mmHg. Doppler and Color-flow revealed trace mitral regurgitation. Doppler and Color Flow revealed mild tricuspid regurgitation. The PA pressure was estimated at > 50mmHg. DATE: 12/09/19 1327 HEART CATH HEART CATH FINDINGS 1. Hemodynamics: Left ventricular end-diastolic pressure of 6 mmHg. No pullback gradient across the aortic valve. 2. Coronary angiography: a. The left main coronary artery arose from the left sinus of Valsalva, gave rise to the left anterior descending and left circumflex arteries and did not show any significant stenosis. b. The left anterior descending artery did not show any significant stenosis. c. The left circumflex artery did not show any significant stenosis. d. The right coronary artery was a large and dominant vessel arising from the right sinus of Valsalva that showed 50-60% stenosis in the proximal segment that was physiologically insignificant based on FFR measurement. Conclusion Nonobstructive coronary artery disease involving right coronary artery, proved physiologically insignificant with IFR measurement. Recommendations Medical Therapy DATE: 01/22/19 1155 ASSESSMENT/PLAN ASSESSMENT/PLAN 1. Acute on chronic diastolic CHF 2. AECOPD with possible pneumonia: pulmonary following 3. Hypertension; controlled 4. CAD; Moderate disease to RCA per [facility] in 2019 5. Diabetes, II. 6. Hyperlipidemia; LDL 89 7. PPM with SSS: Hwang. Recent device check in 06/01/2020 revealed normal function. DDDR mode 11 yrs battery life RV pacing 4.7% no HVR 8. Moderate mitral stenosis Recommendations 1. Will obtain TTE and reevaluate her valvular disease. Will arrange for outpt MPI and ascertain any ischemic etiology 2. Continue lasix therapy, good UOP so far. Monitor renal labs 3. Continue secondary prevention measures 4. Supportive care EMANUEL KELLEY APRN June 11, 2020 11:26
[2020-06-11 11:49] VITALS: BP 131/60
--- NOTE | 2020-06-11 11:59 | PDOC ---
PROGRESS NOTES Date of Service DATE: 06/11/20 TIME: 11:56 Subjective Subjective feels a little bit better. has 350 c of urine in pantoja bag,. lab reviewed. ct chest pending. Objective Objective Vital Signs Date Time Temp Pulse Resp B/P (MAP) Pulse Ox O2 Delivery O2 Flow Rate FiO2 06/11/20 11:49 97.6 87 28 131/60 (83) 93 Nasal Cannula 5.0 97.6 Intake and Output 06/11/20 07:00 Intake Total 300 ml Output Total 150 ml Balance 150 ml Intake Oral 300 ml Output Urine Total 150 ml # Bowel Movements 1 Physical Exam Abdomen: Soft Heart: Regular rate, Normal S1, Normal S2 Extremities: No edema General: Alert HEENT: Atraumatic Lungs: Other (decreased breath sound with mild rhonchi) Neck: Supple Neuro: Normal speech Skin: No rashes Assessment Assessment Problems1. Acute on chronic diastolic congestive heart failure. 2. Acute on chronic hypoxic respiratory failure. 3. Chronic obstructive pulmonary disease 4. Acute bronchitis. 5. Diabetes mellitus type 2. 6. Mild protein calorie malnutrition. 7. Moderate mitral stenosis. Medical Problems: (1) Hyperglycemia Status: Acute (2) Person under investigation for COVID-19 Status: Acute (3) Pneumonia of both lower lobes Status: Acute (4) Shortness of breath Status: Acute Plan Plan of Care metolazone dose today continue iv lasix switch to prednisone taper continue zithromax and rocephin Comment Review of Relevant I have reviewed the following items lizbeth (where applicable) has been applied. Labs Laboratory Tests Test 06/10/20 12:38 06/10/20 15:22 06/10/20 15:30 06/10/20 17:35 White Blood Count 10.7 x10^3/uL (4.0-11.0) Red Blood Count 3.99 x10^6/uL (3.50-5.40) Hemoglobin 11.9 g/dL (12.0-15.5) Hematocrit 36.3 % (36.0-47.0) Mean Corpuscular Volume 91 fL (79-100) Mean Corpuscular Hemoglobin 30 pg (25-35) Mean Corpuscular Hemoglobin Concent 33 g/dL (31-37) Red Cell Distribution Width 14.5 % (11.5-14.5) Platelet Count 152 x10^3/uL (140-400) Neutrophils (%) (Auto) 91 % (31-73) Lymphocytes (%) (Auto) 4 % (24-48) Monocytes (%) (Auto) 4 % (0-9) Eosinophils (%) (Auto) 1 % (0-3) Basophils (%) (Auto) 0 % (0-3) Neutrophils # (Auto) 9.7 x10^3/uL (1.8-7.7) Lymphocytes # (Auto) 0.4 x10^3/uL (1.0-4.8) Monocytes # (Auto) 0.4 x10^3/uL (0.0-1.1) Eosinophils # (Auto) 0.1 x10^3/uL (0.0-0.7) Basophils # (Auto) 0.0 x10^3/uL (0.0-0.2) Segmented Neutrophils % 89 % (35-66) Band Neutrophils % 2 % (0-9) Lymphocytes % 2 % (24-48) Monocytes % 6 % (0-10) Eosinophils % 1 % (0-5) Platelet Estimate Adequate (ADEQUATE) Sodium Level 140 mmol/L (136-145) Potassium Level 4.0 mmol/L (3.5-5.1) Chloride Level 98 mmol/L (98-107) Carbon Dioxide Level 38 mmol/L (21-32) Anion Gap 4 (6-14) Blood Urea Nitrogen 20 mg/dL (7-20) Creatinine 0.9 mg/dL (0.6-1.0) Estimated GFR (Cockcroft-Gault) 59.1 BUN/Creatinine Ratio 22 (6-20) Glucose Level 204 mg/dL (70-99) Lactic Acid Level 1.7 mmol/L (0.4-2.0) Calcium Level 8.5 mg/dL (8.5-10.1) Magnesium Level 2.0 mg/dL (1.8-2.4) Total Bilirubin 0.7 mg/dL (0.2-1.0) Aspartate Amino Transf (AST/SGOT) 27 U/L (15-37) Alanine Aminotransferase (ALT/SGPT) 28 U/L (14-59) Alkaline Phosphatase 115 U/L (46-116) Creatine Kinase 136 U/L (26-192) Creatine Kinase MB (Mass) 1.1 ng/mL (0.0-3.6) Creatine Kinase MB Relative Index 0.8 % (0-4) Troponin I Quantitative < 0.017 ng/mL (0.000-0.055) < 0.017 ng/mL (0.000-0.055) EB-Heo-N-Type Natriuretic Peptide 1042 pg/mL (0-449) Total Protein 7.4 g/dL (6.4-8.2) Albumin 3.3 g/dL (3.4-5.0) Albumin/Globulin Ratio 0.8 (1.0-1.7) Procalcitonin 0.25 ng/mL (0.00-0.10) SARS-CoV-2 RNA (MAXWELL) Negative (Negative) Glucose (Fingerstick) 123 mg/dL (70-99) Test 06/10/20 18:00 06/10/20 21:24 06/11/20 03:45 06/11/20 09:15 Troponin I Quantitative < 0.017 ng/mL (0.000-0.055) Glucose (Fingerstick) 201 mg/dL (70-99) 208 mg/dL (70-99) White Blood Count 7.5 x10^3/uL (4.0-11.0) Red Blood Count 3.85 x10^6/uL (3.50-5.40) Hemoglobin 11.3 g/dL (12.0-15.5) Hematocrit 35.0 % (36.0-47.0) Mean Corpuscular Volume 91 fL (79-100) Mean Corpuscular Hemoglobin 29 pg (25-35) Mean Corpuscular Hemoglobin Concent 32 g/dL (31-37) Red Cell Distribution Width 14.6 % (11.5-14.5) Platelet Count 172 x10^3/uL (140-400) Neutrophils (%) (Auto) 94 % (31-73) Lymphocytes (%) (Auto) 5 % (24-48) Monocytes (%) (Auto) 1 % (0-9) Eosinophils (%) (Auto) 0 % (0-3) Basophils (%) (Auto) 0 % (0-3) Neutrophils # (Auto) 7.0 x10^3/uL (1.8-7.7) Lymphocytes # (Auto) 0.4 x10^3/uL (1.0-4.8) Monocytes # (Auto) 0.1 x10^3/uL (0.0-1.1) Eosinophils # (Auto) 0.0 x10^3/uL (0.0-0.7) Basophils # (Auto) 0.0 x10^3/uL (0.0-0.2) Sodium Level 139 mmol/L (136-145) Potassium Level 4.4 mmol/L (3.5-5.1) Chloride Level 98 mmol/L (98-107) Carbon Dioxide Level 37 mmol/L (21-32) Anion Gap 4 (6-14) Blood Urea Nitrogen 24 mg/dL (7-20) Creatinine 0.9 mg/dL (0.6-1.0) Estimated GFR (Cockcroft-Gault) 59.1 BUN/Creatinine Ratio 27 (6-20) Glucose Level 175 mg/dL (70-99) Calcium Level 8.6 mg/dL (8.5-10.1) Total Bilirubin 0.4 mg/dL (0.2-1.0) Aspartate Amino Transf (AST/SGOT) 20 U/L (15-37) Alanine Aminotransferase (ALT/SGPT) 21 U/L (14-59) Alkaline Phosphatase 99 U/L (46-116) Total Protein 7.6 g/dL (6.4-8.2) Albumin 2.8 g/dL (3.4-5.0) Albumin/Globulin Ratio 0.6 (1.0-1.7) Laboratory Tests Test 06/10/20 12:38 06/10/20 15:22 06/10/20 15:30 06/10/20 17:35 White Blood Count 10.7 x10^3/uL (4.0-11.0) Red Blood Count 3.99 x10^6/uL (3.50-5.40) Hemoglobin 11.9 g/dL (12.0-15.5) Hematocrit 36.3 % (36.0-47.0) Mean Corpuscular Volume 91 fL (79-100) Mean Corpuscular Hemoglobin 30 pg (25-35) Mean Corpuscular Hemoglobin Concent 33 g/dL (31-37) Red Cell Distribution Width 14.5 % (11.5-14.5) Platelet Count 152 x10^3/uL (140-400) Neutrophils (%) (Auto) 91 % (31-73) Lymphocytes (%) (Auto) 4 % (24-48) Monocytes (%) (Auto) 4 % (0-9) Eosinophils (%) (Auto) 1 % (0-3) Basophils (%) (Auto) 0 % (0-3) Neutrophils # (Auto) 9.7 x10^3/uL (1.8-7.7) Lymphocytes # (Auto) 0.4 x10^3/uL (1.0-4.8) Monocytes # (Auto) 0.4 x10^3/uL (0.0-1.1) Eosinophils # (Auto) 0.1 x10^3/uL (0.0-0.7) Basophils # (Auto) 0.0 x10^3/uL (0.0-0.2) Segmented Neutrophils % 89 % (35-66) Band Neutrophils % 2 % (0-9) Lymphocytes % 2 % (24-48) Monocytes % 6 % (0-10) Eosinophils % 1 % (0-5) Platelet Estimate Adequate (ADEQUATE) Sodium Level 140 mmol/L (136-145) Potassium Level 4.0 mmol/L (3.5-5.1) Chloride Level 98 mmol/L (98-107) Carbon Dioxide Level 38 mmol/L (21-32) Anion Gap 4 (6-14) Blood Urea Nitrogen 20 mg/dL (7-20) Creatinine 0.9 mg/dL (0.6-1.0) Estimated GFR (Cockcroft-Gault) 59.1 BUN/Creatinine Ratio 22 (6-20) Glucose Level 204 mg/dL (70-99) Lactic Acid Level 1.7 mmol/L (0.4-2.0) Calcium Level 8.5 mg/dL (8.5-10.1) Magnesium Level 2.0 mg/dL (1.8-2.4) Total Bilirubin 0.7 mg/dL (0.2-1.0) Aspartate Amino Transf (AST/SGOT) 27 U/L (15-37) Alanine Aminotransferase (ALT/SGPT) 28 U/L (14-59) Alkaline Phosphatase 115 U/L (46-116) Creatine Kinase 136 U/L (26-192) Creatine Kinase MB (Mass) 1.1 ng/mL (0.0-3.6) Creatine Kinase MB Relative Index 0.8 % (0-4) Troponin I Quantitative < 0.017 ng/mL (0.000-0.055) < 0.017 ng/mL (0.000-0.055) CC-Dhg-F-Type Natriuretic Peptide 1042 pg/mL (0-449) Total Protein 7.4 g/dL (6.4-8.2) Albumin 3.3 g/dL (3.4-5.0) Albumin/Globulin Ratio 0.8 (1.0-1.7) Procalcitonin 0.25 ng/mL (0.00-0.10) SARS-CoV-2 RNA (MAXWELL) Negative (Negative) Glucose (Fingerstick) 123 mg/dL (70-99) Test 06/10/20 18:00 06/10/20 21:24 06/11/20 03:45 06/11/20 09:15 Troponin I Quantitative < 0.017 ng/mL (0.000-0.055) Glucose (Fingerstick) 201 mg/dL (70-99) 208 mg/dL (70-99) White Blood Count 7.5 x10^3/uL (4.0-11.0) Red Blood Count 3.85 x10^6/uL (3.50-5.40) Hemoglobin 11.3 g/dL (12.0-15.5) Hematocrit 35.0 % (36.0-47.0) Mean Corpuscular Volume 91 fL (79-100) Mean Corpuscular Hemoglobin 29 pg (25-35) Mean Corpuscular Hemoglobin Concent 32 g/dL (31-37) Red Cell Distribution Width 14.6 % (11.5-14.5) Platelet Count 172 x10^3/uL (140-400) Neutrophils (%) (Auto) 94 % (31-73) Lymphocytes (%) (Auto) 5 % (24-48) Monocytes (%) (Auto) 1 % (0-9) Eosinophils (%) (Auto) 0 % (0-3) Basophils (%) (Auto) 0 % (0-3) Neutrophils # (Auto) 7.0 x10^3/uL (1.8-7.7) Lymphocytes # (Auto) 0.4 x10^3/uL (1.0-4.8) Monocytes # (Auto) 0.1 x10^3/uL (0.0-1.1) Eosinophils # (Auto) 0.0 x10^3/uL (0.0-0.7) Basophils # (Auto) 0.0 x10^3/uL (0.0-0.2) Sodium Level 139 mmol/L (136-145) Potassium Level 4.4 mmol/L (3.5-5.1) Chloride Level 98 mmol/L (98-107) Carbon Dioxide Level 37 mmol/L (21-32) Anion Gap 4 (6-14) Blood Urea Nitrogen 24 mg/dL (7-20) Creatinine 0.9 mg/dL (0.6-1.0) Estimated GFR (Cockcroft-Gault) 59.1 BUN/Creatinine Ratio 27 (6-20) Glucose Level 175 mg/dL (70-99) Calcium Level 8.6 mg/dL (8.5-10.1) Total Bilirubin 0.4 mg/dL (0.2-1.0) Aspartate Amino Transf (AST/SGOT) 20 U/L (15-37) Alanine Aminotransferase (ALT/SGPT) 21 U/L (14-59) Alkaline Phosphatase 99 U/L (46-116) Total Protein 7.6 g/dL (6.4-8.2) Albumin 2.8 g/dL (3.4-5.0) Albumin/Globulin Ratio 0.6 (1.0-1.7) Medications Current Medications Methylprednisolone Sodium Succinate (SOLU-Medrol 125MG VIAL) 125 mg 1X ONCE IV Last administered on 06/10/20at 15:41; Start 06/10/20 at 14:15; Stop 06/10/20 at 14:20; Status DC Ondansetron HCl (Zofran) 4 mg PRN Q8HRS PRN IV NAUSEA/VOMITING; Start 06/10/20 at 14:15; Stop 06/11/20 at 14:14 Morphine Sulfate (Morphine Sulfate) 2 mg PRN Q2HR PRN IV PAIN; Start 06/10/20 at 14:15; Stop 06/11/20 at 14:14 Acetaminophen (Tylenol) 650 mg PRN Q4HRS PRN PO FEVER > 100.3'F; Start 06/10/20 at 14:15; Stop 06/11/20 at 14:14 Ceftriaxone Sodium (Rocephin) 1 gm 1X ONCE IVP Last administered on 06/10/20at 15:41; Start 06/10/20 at 14:30; Stop 06/10/20 at 14:31; Status DC Furosemide (Lasix) 40 mg DAILY IVP Last administered on 06/11/20at 09:42; Start 06/11/20 at 09:00 Furosemide (Lasix) 40 mg 1X ONCE IVP Last administered on 06/10/20at 18:01; Start 06/10/20 at 16:15; Stop 06/10/20 at 16:26; Status DC Albuterol/ Ipratropium (Duoneb) 3 ml RTQID NEB Last administered on 06/11/20 11:42; Start 06/10/20 at 20:00 Budesonide (Pulmicort) 0.5 mg RTBID NEB Last administered on 06/10/20at 19:44; Start 06/10/20 at 20:00 Methylprednisolone Sodium Succinate (SOLU-Medrol 40MG VIAL) 40 mg Q12HR IV Last administered on 06/11/20 09:39; Start 06/10/20 at 21:00 Ceftriaxone Sodium (Rocephin) 1 gm Q24H IVP ; Start 06/11/20 at 14:00 Azithromycin (Zithromax) 500 mg 1X ONCE PO Last administered on 06/10/20at 18: 02; Start 06/10/20 at 16:15; Stop 06/10/20 at 16:26; Status DC Azithromycin (Zithromax) 250 mg DAILY PO ; Start 06/11/20 at 14:00 Alprazolam (Xanax) 0.5 mg BID PO Last administered on 06/11/20 09:38; Start 06/10/20 at 21:00 Aspirin (Ecotrin) 81 mg DAILYWBKFT PO Last administered on 06/11/20 09:36; Start 06/11/20 at 08:00 Carvedilol (Coreg) 3.125 mg BIDWMEALS PO Last administered on 06/11/20at 09:38; Start 06/10/20 at 17:00 Docusate Sodium (Colace) 100 mg BID PO Last administered on 06/11/20 09:36; Start 06/10/20 at 21:00 Duloxetine HCl (Cymbalta) 60 mg DAILY PO Last administered on 06/11/20 09:38; Start 06/11/20 at 09:00 Fentanyl (Duragesic 12mcg/ Hr Patch) 1 patch Q3DAYS TD Last administered on 06/11/20 09:41; Start 06/11/20 at 09:00 Acetaminophen/ Hydrocodone Bitart (Lortab 5/325) 1 tab TID PRN PO SEVERE PAIN 7-10 Last administered on 06/11/20 04:39; Start 06/10/20 at 16:15 Lidocaine (Lidoderm) 1 patch DAILY TD Last administered on 06/11/20 09:41; Start 06/10/20 at 17:00 Miscellaneous (Lidoderm Patch Removal) 1 ea QHS MC Last administered on 06/10/20 21:00; Start 06/10/20 at 21:00 Pregabalin (Lyrica) 50 mg BID PO Last administered on 06/11/20 09:37; Start 06/10/20 at 21:00 Hydroxychloroquine Sulfate (Plaquenil) 200 mg BID PO Last administered on 06/11/20 09:38; Start 06/10/20 at 21:00 Potassium Chloride (Klor-Con) 20 meq DAILY PO Last administered on 06/11/20 09:37; Start 06/11/20 at 09:00 Pantoprazole Sodium (Protonix) 40 mg DAILYAC PO Last administered on 06/11/20 09:36; Start 06/11/20 at 07:30 Ropinirole HCl (Requip) 1 mg TID PO Last administered on 06/11/20 09:37; Start 06/10/20 at 17:00 Sertraline HCl (Zoloft) 100 mg DAILY PO Last administered on 06/11/20 09:37; Start 06/11/20 at 09:00 Acetaminophen (Tylenol) 325 mg PRN Q6HRS PRN PO MILD PAIN / TEMP > 100.3'F; Start 06/10/20 at 16:15 Trazodone HCl (Desyrel) 50 mg PRN QHS PRN PO INSOMNIA; Start 06/10/20 at 16:15; Stop 06/10/20 at 16:38; Status DC Zolpidem Tartrate (Ambien) 5 mg PRN QHS PRN PO INSOMNIA; Start 06/10/20 at 16:30 Insulin Human Lispro (HumaLOG) 0-6 UNITS BG 300-3... TIDWMEALS SQ ; Start 06/10/20 at 17:00 Vitamin D (Vitamin D3) 1,000 unit DAILY PO Last administered on 06/11/20at 09:36; Start 06/10/20 at 17:00 Enoxaparin Sodium (Lovenox 40mg Syringe) 40 mg Q24H SQ Last administered on 06/10/20at 21:48; Start 06/10/20 at 20:00 Perflutren Protein Type A Microsphe (Optison) 0.66 mg STK-MED ONCE IV ; Start 06/11/20 at 10:18; Stop 06/11/20 at 10:18; Status DC Perflutren Protein Type A Microsphe (Optison) 0.66 mg 1X ONCE IV Last administered on 06/11/20at 11:02; Start 06/11/20 at 11:00; Stop 06/11/20 at 11:11; Status DC Active Scripts Active Klor-Con M20 (Potassium Chloride) 20 Meq Tab.er.prt 20 Meq PO QODAY Aspirin 81 Mg Tab.chew 81 Mg PO DAILY Ropinirole Hcl 1 Mg Tablet 1 Mg PO TID Alprazolam 0.5 Mg Tablet 0.5 Mg PO BID FENTANYL 12mcg/hr (Fentanyl) 1 Each Patch.td72 1 Patch TP Q3DAYS Lyrica (Pregabalin) 50 Mg Capsule 1 Cap PO BID Pantoprazole Sodium (Pantoprazole Sodium) 40 Mg Tablet.dr 40 Mg PO DAILY Hydrocodone-Apap 5-325 (Hydrocodone Bit/Acetaminophen) 1 Tab Tablet 1 Tab PO PRN Q8HRS PRN Reported Sertraline Hcl 100 Mg Tablet 100 Mg PO DAILY Miralax (Polyethylene Glycol 3350) 17 Gm Powd.pack 1 Packet PO DAILY PRN 2 Days dissolve in water Plaquenil (Hydroxychloroquine Sulfate) 200 Mg Tablet 1 Tab PO BID 30 Days Nystatin 1 Each Powder.ea. 1 Each MC BID Melatonin 5 Mg Tab.rapdis 1 Tab PO QHS 30 Days Lidocaine PATCH (Lidocaine) 1 Each Adh..patch 1 Each TP DAILY REMOVE AFTER 12 HOURS Lasix (Furosemide) 40 Mg Tablet 1 Tab PO QOD 30 Days Cymbalta (Duloxetine Hcl) 60 Mg Capsule.dr 1 Cap PO DAILY Colace (Docusate Sodium) 100 Mg Capsule 1 Cap PO BID 30 Days Coreg (Carvedilol) 3.125 Mg Tablet 3.125 Mg PO BIDWMEALS Albuterol Sulfate Neb Soln (Albuterol Sulfate) 2.5 Mg/3 Ml Vial.neb 1 Vial NEB PRN Q4HRS Advair 250-50 Diskus (Fluticasone/Salmeterol) 1 Each Disk.w.dev 1 Puff IH BID Vitamin D (Cholecalciferol (Vitamin D3)) 1,000 Unit Capsule 1 Cap PO DAILY Vitals/I & O Vital Sign - Last 24 Hours 06/10/20 06/10/20 06/10/20 06/10/20 12:40 12:55 13:25 13:55 Pulse 84 84 84 80 Resp 24 24 29 34 B/P (MAP) 142/61 (88) 122/55 (77) 125/57 (79) 123/63 (83) Pulse Ox 98 98 94 96 O2 Delivery Nasal Cannula Nasal Cannula Nasal Cannula Nasal Cannula O2 Flow Rate 3.0 3.0 3.0 4.0 06/10/20 06/10/20 06/10/20 06/10/20 13:55 14:25 15:20 15:25 Temp 97.3 97.3 Pulse 90 78 78 80 Resp 30 22 23 23 B/P (MAP) 122/57 (78) 123/59 (80) 126/57 (80) 114/55 (74) Pulse Ox 100 96 99 97 O2 Delivery Nasal Cannula Nasal Cannula Nasal Cannula Nasal Cannula O2 Flow Rate 4.0 4.0 4.0 4.0 06/10/20 06/10/20 06/10/20 06/10/20 16:15 18:03 19:32 19:40 Temp 97.5 97.5 Pulse 80 89 Resp 30 B/P (MAP) 113/66 (82) Pulse Ox 96 O2 Delivery Nasal Cannula Nasal Cannula Nasal Cannula O2 Flow Rate 4.0 4.0 5.0 06/10/20 06/10/20 06/11/20 06/11/20 19:56 22:58 02:42 04:39 Temp 97.5 97.6 97.5 97.6 Pulse 93 93 Resp 30 28 B/P (MAP) 130/56 (80) 117/63 (81) Pulse Ox 91 90 91 91 O2 Delivery Nasal Cannula Nasal Cannula Nasal Cannula Nasal Cannula O2 Flow Rate 4.0 5.0 5.0 5.0 06/11/20 06/11/20 06/11/20 06/11/20 05:09 07:00 09:38 09:41 Temp 97.8 97.8 Pulse 93 93 Resp 28 B/P (MAP) 117/63 (81) 117/63 Pulse Ox 91 91 91 O2 Delivery Nasal Cannula Nasal Cannula Nasal Cannula O2 Flow Rate 5.0 5.0 4.0 06/11/20 06/11/20 11:42 11:49 Temp 97.6 97.6 Pulse 87 Resp 28 B/P (MAP) 131/60 (83) Pulse Ox 96 93 O2 Delivery Nasal Cannula Nasal Cannula O2 Flow Rate 3.0 5.0 Intake and Output 06/10/20 06/10/20 06/11/20 15:00 23:00 07:00 Intake Total 300 ml 0 ml Output Total 150 ml Balance 150 ml 0 ml Justifications for Admission Other Justification Nutrition Consultation Dietary Evaluation: Recommendations by RD: Dietary education by RD Comments: ADA/Cardiac, glucerna REC mvi and vit c per wound protocal honor food preferences and offer snacks/supplements prn Expected Outcomes/Goals: to meet >75% est nutrition needs Malnutrition Findings: Food and Nutrition Intake (Sev: <50% est energy req 5days Fluid Accumulation (Severe): Severe KARAN KIMBLE MD June 11, 2020 11:59
[2020-06-11] MEDS ORDERED: metOLazone 2.5 MG TABLET PO ONE (12:00)
--- NOTE | 2020-06-11 12:17 | RAD ---
Examination: CT of the abdomen pelvis without contrast HISTORY: History of congestive heart failure, pneumonia COMPARISON: None available TECHNIQUE: Axial CT images of the chest were performed without contrast. Coronal and sagittal reforma ts are performed Exposure: One or more of the following individualized dose reduction techniques were utilized for thi s examination: 1. Automated exposure control 2. Adjustment of the mA and/or kV according to patient size 3. Use of iterative reconstruction technique FINDINGS: The central airways are patent. Mild cardiomegaly. Moderate aortic atherosclerosis. Left-sided cardiac pacer is identified. Right lower lobe lung consolidation changes with air bronchograms identified. There is mild airspace opacity identified in the left lower lobe of the lung likely atelectasis or infiltrate. There are sca ttered bilateral lung airspace opacity likely atelectasis or infiltrates. The visualized noncontraste d liver, adrenals grossly appears unremarkable. Few calcified granulomas identified in the spleen. Mo derate degenerative changes thoracic spine. IMPRESSION: 1. Right lower lobe lung consolidation changes with air bronchograms identified could be pneumonia o r atelectasis. Follow-up to resolution. 2. There is mild airspace opacity identified in the left lower lobe of the lung with patchy scattere d bilateral lung airspace opacities likely atelectasis or infiltrate. Follow-up to resolution. Electronically signed by: Carl Nelson MD (06/11/2020 12:15 PM) [id number]
[2020-06-11] MEDS: predniSONE 10 MG TABLET PO SCH (13:44)
[2020-06-11] MEDS: AZITHROMYCIN 250 MG TABLET. PO SCH (13:44)
[2020-06-11] MEDS: FUROSEMIDE 40 MG/4 ML VIAL. IVP SCH ×2 (13:45→14:00)
[2020-06-11] MEDS: POTASSIUM CHLORIDE 20 MEQ TABLET.ER. PO SCH ×2 (13:45→18:29)
[2020-06-11] MEDS ORDERED: cefTRIAXone IV Push 1 GM VIAL. IVP SCH (14:00)
--- NOTE | 2020-06-11 15:16 | NUR ---
Wound/Ostomy Care Wound Type/Assessment: Patient seen per wound care consult. See wound assessment. Patient has right heel DFU, left heel DFU, and right 2nd toe DFU. Patient is known to us from the wound clinic. Wounds cleansed and assessed. Our [employer]PER assessed along with us for a callous on the right heel, there was no wound under the callous. Cleansed and pictured for precautionary purposes only, as patient has had wounds on the heel before. Treatment Recommendations/Plan: Recommendations for skin prep and foams to bilateral heels and skin prep to right 2nd toe. Change on Monday. Dressings applied and calazime applied to coccyx for protection. Education provided: Patient educated on dressing changes and PU prevention. Offloading surface/device: Patient's caregiver Krupa will bring up her heel medix boots tomorrow as patient has 2 pairs. Patient is able to assist with turning. Recommended Referrals/Tests: N/A Discharge Recommendations for dressings: Dressing change instructions left in room. No other wounds noted. Bed lowered and call light in reach. Patient can follow up in wound clinic if needed following discharge.
[2020-06-11 15:35] VITALS: BP 125/66
--- NOTE | 2020-06-11 16:03 | NUR ---
SS following for discharge planning. SS reviewed pt chart and discussed with pt RN. Pt is from home and is currently requiring oxygen at five liters nasal canula. COVID19 negative. Pt has caregivers at home. Pt on IV Rocephin and IV Lasix. SS will continue to follow for discharge planning. Addendum: 06/11/20 at 1607 by ROQUE BARRERA SS Pt has home oxygen.
--- NOTE | 2020-06-11 16:42 | CARD ---
MR#: [id number] Date of Study: 06/11/2020 Ordering Physician: KARAN KIMBLE, Referring Physician: KARAN KIMBLE, Tech: Bisi Morrison [facility] APPROVED REPORT EXAM: Two-dimensional and M-mode echocardiogram with Doppler and color Doppler. Other Information Quality : Technically LimitedHR: 90bpm Rhythm : NSRTechnically limited study due to body habitus. INDICATION Murmur Echo Enhancing Agent Indication: Endocardial border delineation Agent/Amount Used: Optison 3mL 2D DIMENSIONS RVDd2.9 (2.9-3.5cm)Left Atrium(2D)4.1 (1.6-4.0cm) IVSd1.5 (0.7-1.1cm)Aortic Root(2D)2.9 (2.0-3.7cm) LVDd3.5 (3.9-5.9cm)LVOT Diameter2.2 (1.8-2.4cm) PWd1.4 (0.7-1.1cm)LVDs1.9 (2.5-4.0cm) FS (%) 45.5 %SV40.5 ml Aortic Valve AoV Peak Quique.239.9cm/sAoV VTI48.9cm AO Peak GR.23.0mmHgLVOT Peak Quique.77.3cm/s AO Mean GR.13mmHgAVA (VMAX)1.20cm2 Tricuspid Valve TR P. [id number]/sTR Peak Gr.37mmHg LEFT VENTRICLE The left ventricle is normal size. There is mild to moderate concentric left ventricular hypertrophy. The left ventricular systolic function is normal and the ejection fraction is within normal range. LV ejection fraciion is 55-60%. There is normal LV segmental wall motion. Transmitral Doppler flow pa ttern is Grade I-abnormal relaxation pattern. RIGHT VENTRICLE The right ventricle is normal size. There is normal right ventricular wall thickness. The right ventr icular systolic function is normal. There is a probable device lead in the right ventricle. ATRIA The left atrium size is normal. The right atrium size is normal. The interatrial septum is intact wit h no evidence for an atrial septal defect or patent foramen ovale as noted on 2-D or Doppler imaging. AORTIC VALVE The aortic valve is calcified and displays decreased opening. Doppler and Color Flow revealed no sign ificant aortic regurgitation. There is moderate valvular aortic stenosis. Aortic valve peak gradient of 23 mmHg, mean gradient of 12 mmHg. MITRAL VALVE The mitral valve is calcified but opens well. Mitral annular calcification is moderate to severe. Th ere is no evidence of mitral valve prolapse. There is no significant mitral valve stenosis. Doppler a nd Color-flow revealed mild mitral regurgitation. TRICUSPID VALVE The tricuspid valve is normal in structure and function. Doppler and Color Flow revealed mild tricusp id regurgitation. Estimated PAP 40 mmHg. There is no tricuspid valve stenosis. PULMONIC VALVE The pulmonary valve is normal in structure and function. Doppler and Color Flow revealed trace pulmon ic valvular regurgitation. GREAT VESSELS The aortic root is normal in size. The ascending aorta is normal in size. The IVC is normal in size a nd collapses >50% with inspiration. PERICARDIAL EFFUSION There is no evidence of significant pericardial effusion. Critical Notification Critical Value: No <Conclusion> The left ventricle is normal size. The left ventricular systolic function is normal and the ejection fraction is within normal range. LV ejection fraciion is 55-60%. There is mild to moderate concentric left ventricular hypertrophy. The aortic valve is calcified and displays decreased opening. There is moderate valvular aortic stenosis. Aortic valve peak gradient of 23 mmHg, mean gradient of 12 mmHg. Doppler and Color Flow revealed no significant aortic regurgitation. The mitral valve is calcified but opens well. Doppler and Color-flow revealed mild mitral regurgitation. Doppler and Color Flow revealed mild tricuspid regurgitation. Estimated PAP 40 mmHg. Signed by : Monster Zhang MD Electronically Approved : 06/11/2020 16:42:10
--- NOTE | 2020-06-11 16:42 | NUR ---
IP: Pt is PUI negaative, however need to remain in contact precautions due to hx of + mrsa screen on 01/1719 and ESBL in urine on 12/07/19.
[2020-06-11 19:35] VITALS: BP 122/75
[2020-06-11] MEDS: ENOXAPARIN 40 MG/0.4 ML SYRINGE. SQ SCH (20:48)
[2020-06-11] MEDS: LACTOBACILLUS RHAMNOSUS GG 1 CAPSULE. PO SCH (20:49)
[2020-06-11] MEDS: PATCH REMOVAL. MC SCH (20:49)
[2020-06-11 23:20] VITALS: BP 138/74
[2020-06-12 02:40] VITALS: BP 145/72
[2020-06-12 04:51] LABS: BASO % 0 % (0-3); EOS % 0 % (0-3); HEMATOCRIT 35.4 % (36.0-47.0); HEMOGLOBIN 11.6 g/dL (12.0-15.5); LYMPH % 10 % (24-48); MEAN CORPUSCULAR HEMOGLOBIN 30 pg (25-35); MEAN CORPUSCULAR HGB CONC 33 g/dL (31-37); MEAN CORPUSCULAR VOLUME 90 fL (79-100); MONO # 0.6 x10^3/uL (0.0-1.1); MONO % 6 % (0-9); NEUT # 8.1 x10^3/uL (1.8-7.7); NEUT % 84 % (31-73); PLATELET COUNT 229 x10^3/uL (140-400); RED BLOOD COUNT 3.92 x10^6/uL (3.50-5.40); RED CELL DISTRIBUTION WIDTH 14.7 % (11.5-14.5); WHITE BLOOD COUNT 9.7 x10^3/uL (4.0-11.0)
[2020-06-12 04:58] LABS: CREATININE 1.2 mg/dL (0.6-1.0); GFR 42.4; MAGNESIUM 2.4 mg/dL (1.8-2.4); POTASSIUM 4.1 mmol/L (3.5-5.1)
[2020-06-12 07:13] VITALS: BP 126/66
[2020-06-12] MEDS: BUDESONIDE 0.5 MG/2 ML NEBU. NEB SCH (07:30)
[2020-06-12] MEDS: IPRATRPIUM/ALBUTEROL 0.5/2.5MG 3 ML NEBU. NEB SCH (07:30)
[2020-06-12] MEDS: INSULIN LISPRO 300 UNITS/3 ML VIAL. SQ SCH (08:00)
[2020-06-12] MEDS: FUROSEMIDE 40 MG/4 ML VIAL. IVP SCH (09:03)
[2020-06-12] MEDS: LIDOCAINE (700MG/PATCH) PATCH. TD SCH (09:05)
[2020-06-12] MEDS: DOCUSATE SODIUM 100 MG CAPSULE. PO SCH (09:06)
[2020-06-12] MEDS: LACTOBACILLUS RHAMNOSUS GG 1 CAPSULE. PO SCH (09:06)
[2020-06-12] MEDS: SERTRALINE 50 MG TABLET. PO SCH (09:06)
[2020-06-12] MEDS: predniSONE 10 MG TABLET PO SCH (09:06)
[2020-06-12] MEDS: AZITHROMYCIN 250 MG TABLET. PO SCH (09:06)
[2020-06-12] MEDS: HYDROcodone/APAP 5/325MG 1 TAB TABLET PO PRN (09:07)
[2020-06-12] MEDS: POTASSIUM CHLORIDE 20 MEQ TABLET.ER. PO SCH (09:07)
[2020-06-12] MEDS: CARVEDILOL 3.125 MG TABLET. PO SCH (09:07)
[2020-06-12] MEDS: ASPIRIN ENTERIC COATED 81 MG TABLET.DR. PO SCH (09:08)
[2020-06-12] MEDS: PANTOPRAZOLE 40 MG TABLET.DR. PO SCH (09:08)
[2020-06-12] MEDS: PREGABALIN 50 MG CAPSULE PO SCH (09:08)
[2020-06-12] MEDS: CHOLECALCIFEROL (VITAMIN D3) 1,000 UNIT TABLET PO SCH (09:08)
[2020-06-12] MEDS: rOPINIRole 1 MG TABLET. PO SCH (09:08)
[2020-06-12] MEDS: HYDROXYCHLOROQUINE 200 MG TABLET PO SCH (09:09)
[2020-06-12] MEDS: DULoxetine HCL 30 MG CAPSULE.DR PO SCH (09:09)
[2020-06-12] MEDS: ALPRAZolam 0.5 MG TABLET PO SCH (09:09)
--- NOTE | 2020-06-12 09:30 | PDOC ---
PULMONARY PROGRESS NOTES DATE: 06/12/20 TIME: 09:36 Subjective feels better wants to go home Vitals Vital Signs Date Time Temp Pulse Resp B/P (MAP) Pulse Ox O2 Delivery O2 Flow Rate FiO2 06/12/20 09:07 Nasal Cannula 2.5 06/12/20 09:07 80 126/66 06/12/20 07:31 94 06/12/20 07:13 98.1 20 98.1 General: Alert, Oriented X4 Lungs: Clear Cardiovascular: S1, S2 Abdomen: Other Extremities: No Edema Labs Laboratory Tests Test 06/10/20 12:38 06/10/20 15:22 06/10/20 15:30 06/10/20 17:35 White Blood Count 10.7 x10^3/uL (4.0-11.0) Red Blood Count 3.99 x10^6/uL (3.50-5.40) Hemoglobin 11.9 g/dL (12.0-15.5) Hematocrit 36.3 % (36.0-47.0) Mean Corpuscular Volume 91 fL (79-100) Mean Corpuscular Hemoglobin 30 pg (25-35) Mean Corpuscular Hemoglobin Concent 33 g/dL (31-37) Red Cell Distribution Width 14.5 % (11.5-14.5) Platelet Count 152 x10^3/uL (140-400) Neutrophils (%) (Auto) 91 % (31-73) Lymphocytes (%) (Auto) 4 % (24-48) Monocytes (%) (Auto) 4 % (0-9) Eosinophils (%) (Auto) 1 % (0-3) Basophils (%) (Auto) 0 % (0-3) Neutrophils # (Auto) 9.7 x10^3/uL (1.8-7.7) Lymphocytes # (Auto) 0.4 x10^3/uL (1.0-4.8) Monocytes # (Auto) 0.4 x10^3/uL (0.0-1.1) Eosinophils # (Auto) 0.1 x10^3/uL (0.0-0.7) Basophils # (Auto) 0.0 x10^3/uL (0.0-0.2) Segmented Neutrophils % 89 % (35-66) Band Neutrophils % 2 % (0-9) Lymphocytes % 2 % (24-48) Monocytes % 6 % (0-10) Eosinophils % 1 % (0-5) Platelet Estimate Adequate (ADEQUATE) Sodium Level 140 mmol/L (136-145) Potassium Level 4.0 mmol/L (3.5-5.1) Chloride Level 98 mmol/L (98-107) Carbon Dioxide Level 38 mmol/L (21-32) Anion Gap 4 (6-14) Blood Urea Nitrogen 20 mg/dL (7-20) Creatinine 0.9 mg/dL (0.6-1.0) Estimated GFR (Cockcroft-Gault) 59.1 BUN/Creatinine Ratio 22 (6-20) Glucose Level 204 mg/dL (70-99) Lactic Acid Level 1.7 mmol/L (0.4-2.0) Calcium Level 8.5 mg/dL (8.5-10.1) Magnesium Level 2.0 mg/dL (1.8-2.4) Total Bilirubin 0.7 mg/dL (0.2-1.0) Aspartate Amino Transf (AST/SGOT) 27 U/L (15-37) Alanine Aminotransferase (ALT/SGPT) 28 U/L (14-59) Alkaline Phosphatase 115 U/L (46-116) Creatine Kinase 136 U/L (26-192) Creatine Kinase MB (Mass) 1.1 ng/mL (0.0-3.6) Creatine Kinase MB Relative Index 0.8 % (0-4) Troponin I Quantitative < 0.017 ng/mL (0.000-0.055) < 0.017 ng/mL (0.000-0.055) NV-Qpb-A-Type Natriuretic Peptide 1042 pg/mL (0-449) Total Protein 7.4 g/dL (6.4-8.2) Albumin 3.3 g/dL (3.4-5.0) Albumin/Globulin Ratio 0.8 (1.0-1.7) Procalcitonin 0.25 ng/mL (0.00-0.10) SARS-CoV-2 RNA ([facility]) Negative (Negative) Glucose (Fingerstick) 123 mg/dL (70-99) Test 06/10/20 18:00 06/10/20 21:24 06/11/20 03:45 06/11/20 09:15 Troponin I Quantitative < 0.017 ng/mL (0.000-0.055) Glucose (Fingerstick) 201 mg/dL (70-99) 208 mg/dL (70-99) White Blood Count 7.5 x10^3/uL (4.0-11.0) Red Blood Count 3.85 x10^6/uL (3.50-5.40) Hemoglobin 11.3 g/dL (12.0-15.5) Hematocrit 35.0 % (36.0-47.0) Mean Corpuscular Volume 91 fL (79-100) Mean Corpuscular Hemoglobin 29 pg (25-35) Mean Corpuscular Hemoglobin Concent 32 g/dL (31-37) Red Cell Distribution Width 14.6 % (11.5-14.5) Platelet Count 172 x10^3/uL (140-400) Neutrophils (%) (Auto) 94 % (31-73) Lymphocytes (%) (Auto) 5 % (24-48) Monocytes (%) (Auto) 1 % (0-9) Eosinophils (%) (Auto) 0 % (0-3) Basophils (%) (Auto) 0 % (0-3) Neutrophils # (Auto) 7.0 x10^3/uL (1.8-7.7) Lymphocytes # (Auto) 0.4 x10^3/uL (1.0-4.8) Monocytes # (Auto) 0.1 x10^3/uL (0.0-1.1) Eosinophils # (Auto) 0.0 x10^3/uL (0.0-0.7) Basophils # (Auto) 0.0 x10^3/uL (0.0-0.2) Sodium Level 139 mmol/L (136-145) Potassium Level 4.4 mmol/L (3.5-5.1) Chloride Level 98 mmol/L (98-107) Carbon Dioxide Level 37 mmol/L (21-32) Anion Gap 4 (6-14) Blood Urea Nitrogen 24 mg/dL (7-20) Creatinine 0.9 mg/dL (0.6-1.0) Estimated GFR (Cockcroft-Gault) 59.1 BUN/Creatinine Ratio 27 (6-20) Glucose Level 175 mg/dL (70-99) Calcium Level 8.6 mg/dL (8.5-10.1) Total Bilirubin 0.4 mg/dL (0.2-1.0) Aspartate Amino Transf (AST/SGOT) 20 U/L (15-37) Alanine Aminotransferase (ALT/SGPT) 21 U/L (14-59) Alkaline Phosphatase 99 U/L (46-116) Total Protein 7.6 g/dL (6.4-8.2) Albumin 2.8 g/dL (3.4-5.0) Albumin/Globulin Ratio 0.6 (1.0-1.7) Test 06/11/20 12:24 06/11/20 20:45 06/12/20 04:00 06/12/20 07:17 Glucose (Fingerstick) 177 mg/dL (70-99) 243 mg/dL (70-99) 107 mg/dL (70-99) White Blood Count 9.7 x10^3/uL (4.0-11.0) Red Blood Count 3.92 x10^6/uL (3.50-5.40) Hemoglobin 11.6 g/dL (12.0-15.5) Hematocrit 35.4 % (36.0-47.0) Mean Corpuscular Volume 90 fL (79-100) Mean Corpuscular Hemoglobin 30 pg (25-35) Mean Corpuscular Hemoglobin Concent 33 g/dL (31-37) Red Cell Distribution Width 14.7 % (11.5-14.5) Platelet Count 229 x10^3/uL (140-400) Neutrophils (%) (Auto) 84 % (31-73) Lymphocytes (%) (Auto) 10 % (24-48) Monocytes (%) (Auto) 6 % (0-9) Eosinophils (%) (Auto) 0 % (0-3) Basophils (%) (Auto) 0 % (0-3) Neutrophils # (Auto) 8.1 x10^3/uL (1.8-7.7) Lymphocytes # (Auto) 1.0 x10^3/uL (1.0-4.8) Monocytes # (Auto) 0.6 x10^3/uL (0.0-1.1) Eosinophils # (Auto) 0.0 x10^3/uL (0.0-0.7) Basophils # (Auto) 0.0 x10^3/uL (0.0-0.2) Sodium Level 138 mmol/L (136-145) Potassium Level 4.1 mmol/L (3.5-5.1) Chloride Level 95 mmol/L (98-107) Carbon Dioxide Level 38 mmol/L (21-32) Anion Gap 5 (6-14) Blood Urea Nitrogen 39 mg/dL (7-20) Creatinine 1.2 mg/dL (0.6-1.0) Estimated GFR (Cockcroft-Gault) 42.4 Glucose Level 129 mg/dL (70-99) Calcium Level 9.0 mg/dL (8.5-10.1) Magnesium Level 2.4 mg/dL (1.8-2.4) Laboratory Tests Test 06/11/20 12:24 06/11/20 20:45 06/12/20 04:00 06/12/20 07:17 Glucose (Fingerstick) 177 mg/dL (70-99) 243 mg/dL (70-99) 107 mg/dL (70-99) White Blood Count 9.7 x10^3/uL (4.0-11.0) Red Blood Count 3.92 x10^6/uL (3.50-5.40) Hemoglobin 11.6 g/dL (12.0-15.5) Hematocrit 35.4 % (36.0-47.0) Mean Corpuscular Volume 90 fL (79-100) Mean Corpuscular Hemoglobin 30 pg (25-35) Mean Corpuscular Hemoglobin Concent 33 g/dL (31-37) Red Cell Distribution Width 14.7 % (11.5-14.5) Platelet Count 229 x10^3/uL (140-400) Neutrophils (%) (Auto) 84 % (31-73) Lymphocytes (%) (Auto) 10 % (24-48) Monocytes (%) (Auto) 6 % (0-9) Eosinophils (%) (Auto) 0 % (0-3) Basophils (%) (Auto) 0 % (0-3) Neutrophils # (Auto) 8.1 x10^3/uL (1.8-7.7) Lymphocytes # (Auto) 1.0 x10^3/uL (1.0-4.8) Monocytes # (Auto) 0.6 x10^3/uL (0.0-1.1) Eosinophils # (Auto) 0.0 x10^3/uL (0.0-0.7) Basophils # (Auto) 0.0 x10^3/uL (0.0-0.2) Sodium Level 138 mmol/L (136-145) Potassium Level 4.1 mmol/L (3.5-5.1) Chloride Level 95 mmol/L (98-107) Carbon Dioxide Level 38 mmol/L (21-32) Anion Gap 5 (6-14) Blood Urea Nitrogen 39 mg/dL (7-20) Creatinine 1.2 mg/dL (0.6-1.0) Estimated GFR (Cockcroft-Gault) 42.4 Glucose Level 129 mg/dL (70-99) Calcium Level 9.0 mg/dL (8.5-10.1) Magnesium Level 2.4 mg/dL (1.8-2.4) Medications Active Scripts Medications Dose Route/Sig Max Daily Dose Days Date Category Dose Instructions Sertraline Hcl 100 Mg Tablet 100 Mg PO DAILY 06/10/20 Reported Miralax (Polyethylene Glycol 3350) 17 Gm Powd.pack 1 Packet PO DAILY PRN 2 06/10/20 Reported dissolve in water Plaquenil (Hydroxychloroquine Sulfate) 200 Mg Tablet 1 Tab PO BID 30 06/10/20 Reported Nystatin 1 Each Powder.ea. 1 Each MC BID 06/10/20 Reported Melatonin 5 Mg Tab.rapdis 1 Tab PO QHS 30 06/10/20 Reported Lidocaine PATCH (Lidocaine) 1 Each Adh..patch 1 Each TP DAILY 06/10/20 Reported REMOVE AFTER 12 HOURS Lasix (Furosemide) 40 Mg Tablet 1 Tab PO QOD 30 06/10/20 Reported Cymbalta (Duloxetine Hcl) 60 Mg Capsule. 1 Cap PO DAILY 06/10/20 Reported Colace (Docusate Sodium) 100 Mg Capsule 1 Cap PO BID 30 06/10/20 Reported Coreg (Carvedilol) 3.125 Mg Tablet 3.125 Mg PO BIDWMEALS 06/10/20 Reported Albuterol Sulfate Neb Soln (Albuterol Sulfate) 2.5 Mg/3 Ml Vial.neb 1 Vial NEB PRN Q4HRS 06/10/20 Reported Advair 250-50 Diskus (Fluticasone/Salmeterol) 1 Each Disk.w.dev 1 Puff IH BID 06/10/20 Reported Klor-Con M20 (Potassium Chloride) 20 Meq Tab.er.prt 20 Meq PO QODAY 12/12/19 Rx Aspirin 81 Mg Tab.chew 81 Mg PO DAILY 07/15/19 Rx Ropinirole Hcl 1 Mg Tablet 1 Mg PO TID 07/15/19 Rx Alprazolam 0.5 Mg Tablet 0.5 Mg PO BID 07/15/19 Rx FENTANYL 12mcg/hr (Fentanyl) 1 Each Patch.td72 1 Patch TP Q3DAYS 01/23/19 Rx Lyrica (Pregabalin) 50 Mg Capsule 1 Cap PO BID 01/23/19 Rx Pantoprazole Sodium (Pantoprazole Sodium) 40 Mg Tablet.dr 40 Mg PO DAILY 01/13/19 Rx Hydrocodone-Apap 5-325 (Hydrocodone Bit/Acetaminophen) 1 Tab Tablet 1 Tab PO PRN Q8HRS PRN 01/13/19 Rx Vitamin D (Cholecalciferol (Vitamin D3)) 1,000 Unit Capsule 1 Cap PO DAILY 06/24/17 Reported Impression . 1. Acute on chronic hypoxic respiratory failure likely secondary to acute on chronic diastolic congestive heart failure. 2. Clinically less likely pneumonia. 3. Underlying chronic obstructive pulmonary disease. Could be just mild. She smoked for only 15 years. 4. History of chronic diastolic dysfunction as well as moderate mitral stenosis. Plan . 1. I have discussed with RN. At this time, I will continue with present oxygen. 2. Continue diuresis. 3. CT chest reviewed. Mild CHF RLL atelectasis, improved from ct 11/25 , clinically less likely pneumonia. 4. Continue empiric antibiotics for now. 5. Follow cardiology recommendation. 6. COVID-19 is negative. 7. wants to go home, ok by me d/W YONI Keith MD June 12, 2020 09:30
--- NOTE | 2020-06-12 09:32 | PDOC ---
EMANUEL KELLEY B[employer]CH[employer] MACHINE 06/12/20 0931: CARDIO Progress Notes Date and Time Date of Service 06/12/2020 Time of Evaluation 0900 Subjective Subjective: No Chest Pain, No shortness of breath, No Palpitations Vitals Vitals Vital Signs Date Time Temp Pulse Resp B/P (MAP) Pulse Ox O2 Delivery O2 Flow Rate FiO2 06/12/20 09:07 Nasal Cannula 2.5 06/12/20 09:07 80 126/66 06/12/20 07:31 94 06/12/20 07:13 98.1 20 98.1 Weight Weight [ ] Input and Output Intake and Output Intake and Output 06/12/20 07:00 Intake Total 560 ml Output Total 2600 ml Balance -2040 ml Intake Oral 560 ml Output Urine Total 2600 ml Laboratory Labs Laboratory Tests Test 06/11/20 12:24 06/11/20 20:45 06/12/20 04:00 06/12/20 07:17 Glucose (Fingerstick) 177 mg/dL (70-99) 243 mg/dL (70-99) 107 mg/dL (70-99) White Blood Count 9.7 x10^3/uL (4.0-11.0) Red Blood Count 3.92 x10^6/uL (3.50-5.40) Hemoglobin 11.6 g/dL (12.0-15.5) Hematocrit 35.4 % (36.0-47.0) Mean Corpuscular Volume 90 fL (79-100) Mean Corpuscular Hemoglobin 30 pg (25-35) Mean Corpuscular Hemoglobin Concent 33 g/dL (31-37) Red Cell Distribution Width 14.7 % (11.5-14.5) Platelet Count 229 x10^3/uL (140-400) Neutrophils (%) (Auto) 84 % (31-73) Lymphocytes (%) (Auto) 10 % (24-48) Monocytes (%) (Auto) 6 % (0-9) Eosinophils (%) (Auto) 0 % (0-3) Basophils (%) (Auto) 0 % (0-3) Neutrophils # (Auto) 8.1 x10^3/uL (1.8-7.7) Lymphocytes # (Auto) 1.0 x10^3/uL (1.0-4.8) Monocytes # (Auto) 0.6 x10^3/uL (0.0-1.1) Eosinophils # (Auto) 0.0 x10^3/uL (0.0-0.7) Basophils # (Auto) 0.0 x10^3/uL (0.0-0.2) Sodium Level 138 mmol/L (136-145) Potassium Level 4.1 mmol/L (3.5-5.1) Chloride Level 95 mmol/L (98-107) Carbon Dioxide Level 38 mmol/L (21-32) Anion Gap 5 (6-14) Blood Urea Nitrogen 39 mg/dL (7-20) Creatinine 1.2 mg/dL (0.6-1.0) Estimated GFR (Cockcroft-Gault) 42.4 Glucose Level 129 mg/dL (70-99) Calcium Level 9.0 mg/dL (8.5-10.1) Magnesium Level 2.4 mg/dL (1.8-2.4) Microbiology Micro Microbiology 06/10/20 Blood Culture - Preliminary, Resulted NO GROWTH AFTER 1 DAY Physical Exam Chest: Symmetric LUNGS: Other (up-per expiratory wheeze otherwise dimninished) Abdomen: Soft N/T Extremities: No Edema Neurology: alert, oriented, follow commands Assessment Assessment 1. Acute on chronic diastolic CHF: better 2. AECOPD with possible pneumonia: pulmonary following 3. Hypertension; controlled 4. CAD; Moderate disease to RCA per [facility] in 2019 5. Diabetes, II. 6. Hyperlipidemia; LDL 89 7. PPM with SSS: Hwang. Recent device check in 06/01/2020 revealed normal function. DDDR mode 11 yrs battery life RV pacing 4.7% no HVR. Maintaining SR 8. Moderate : TTE did not reveal significant MS. EF and WM nml 9. Prerenal azotemia: due to diurese with contraction alkalosis Recommendations 1. Will arrange for outpt MPI and ascertain any ischemic etiology 2. Good UOP overnight, CHF ulloa compensated. Will DC IV lasix and will switch to bumex tomorrow. 3. Continue secondary prevention measures. Change coreg to toprol with noted wheeze 4. Follow up with Dr. Zhang as scheduled Justicifation of Admission Dx: Justifications for Admission: Justification of Admission Dx: Yes CECILIA ZHANG MD 06/12/20 1659: CARDIO Progress Notes Assessment Assessment Patient seen and evaluated. I agree with our nurse practitioners assessment and plan. Acute on chronic diastolic CHF: Continues to improve. We will continue present treatment. Outpatient follow-up. AECOPD with possible pneumonia: pulmonary following Hypertension; controlled CAD; Moderate disease to RCA per [facility] in 2019. Continuing medical treatment. Hyperlipidemia; LDL 89 PPM with SSS: Hwang. Recent device check in 06/01/2020 revealed normal function. DDDR mode 11 yrs battery life RV pacing 4.7% no HVR. Maintaining SR Moderate : TTE did not reveal significant MS. EF and WM nml EMANUEL KELLEY APRN June 12, 2020 09:31 CECILIA ZHANG MD June 12, 2020 16:59
--- NOTE | 2020-06-12 09:51 | PDOC ---
PROGRESS NOTES Date of Service DATE: 06/12/20 TIME: 09:48 Subjective Subjective feels better. wants to go home. ct chest discussed with dr. Reed who notes atelactasis and no pneumonia. dry cough better. discussed with MOTION STUDY ANALYST sales service technician who recommends switching to bumex and okay with him for dismissal today. Objective Objective Vital Signs Date Time Temp Pulse Resp B/P (MAP) Pulse Ox O2 Delivery O2 Flow Rate FiO2 06/12/20 09:07 Nasal Cannula 2.5 06/12/20 09:07 80 126/66 06/12/20 07:31 94 06/12/20 07:13 98.1 20 98.1 Intake and Output 06/12/20 07:00 Intake Total 560 ml Output Total 2600 ml Balance -2040 ml Intake Oral 560 ml Output Urine Total 2600 ml Physical Exam Abdomen: Soft Heart: Regular rate, Normal S1, Normal S2 Extremities: No edema General: Alert HEENT: Atraumatic, Other Lungs: Other (decreased breath sounds) Neuro: Normal speech Psych/Mental Status: Mental status NL Skin: No rashes Assessment Assessment Problems1. Acute on chronic diastolic congestive heart failure. compensated 2. Acute on chronic hypoxic respiratory failure. 3. Chronic obstructive pulmonary disease 4. Acute bronchitis. 5. Diabetes mellitus type 2. 6. Mild protein calorie malnutrition. 7. Moderate mitral stenosis. Medical Problems: (1) Hyperglycemia Status: Acute (2) Person under investigation for COVID-19 Status: Acute (3) Pneumonia of both lower lobes Status: Acute (4) Shortness of breath Status: Acute Plan Plan of Care dismiss today on oral bumex off carvedilol continue metoprolol continue zithromax and prednisone taper Comment Review of Relevant I have reviewed the following items lizbeth (where applicable) has been applied. Labs Laboratory Tests Test 06/10/20 12:38 06/10/20 15:22 06/10/20 15:30 06/10/20 17:35 White Blood Count 10.7 x10^3/uL (4.0-11.0) Red Blood Count 3.99 x10^6/uL (3.50-5.40) Hemoglobin 11.9 g/dL (12.0-15.5) Hematocrit 36.3 % (36.0-47.0) Mean Corpuscular Volume 91 fL (79-100) Mean Corpuscular Hemoglobin 30 pg (25-35) Mean Corpuscular Hemoglobin Concent 33 g/dL (31-37) Red Cell Distribution Width 14.5 % (11.5-14.5) Platelet Count 152 x10^3/uL (140-400) Neutrophils (%) (Auto) 91 % (31-73) Lymphocytes (%) (Auto) 4 % (24-48) Monocytes (%) (Auto) 4 % (0-9) Eosinophils (%) (Auto) 1 % (0-3) Basophils (%) (Auto) 0 % (0-3) Neutrophils # (Auto) 9.7 x10^3/uL (1.8-7.7) Lymphocytes # (Auto) 0.4 x10^3/uL (1.0-4.8) Monocytes # (Auto) 0.4 x10^3/uL (0.0-1.1) Eosinophils # (Auto) 0.1 x10^3/uL (0.0-0.7) Basophils # (Auto) 0.0 x10^3/uL (0.0-0.2) Segmented Neutrophils % 89 % (35-66) Band Neutrophils % 2 % (0-9) Lymphocytes % 2 % (24-48) Monocytes % 6 % (0-10) Eosinophils % 1 % (0-5) Platelet Estimate Adequate (ADEQUATE) Sodium Level 140 mmol/L (136-145) Potassium Level 4.0 mmol/L (3.5-5.1) Chloride Level 98 mmol/L (98-107) Carbon Dioxide Level 38 mmol/L (21-32) Anion Gap 4 (6-14) Blood Urea Nitrogen 20 mg/dL (7-20) Creatinine 0.9 mg/dL (0.6-1.0) Estimated GFR (Cockcroft-Gault) 59.1 BUN/Creatinine Ratio 22 (6-20) Glucose Level 204 mg/dL (70-99) Lactic Acid Level 1.7 mmol/L (0.4-2.0) Calcium Level 8.5 mg/dL (8.5-10.1) Magnesium Level 2.0 mg/dL (1.8-2.4) Total Bilirubin 0.7 mg/dL (0.2-1.0) Aspartate Amino Transf (AST/SGOT) 27 U/L (15-37) Alanine Aminotransferase (ALT/SGPT) 28 U/L (14-59) Alkaline Phosphatase 115 U/L (46-116) Creatine Kinase 136 U/L (26-192) Creatine Kinase MB (Mass) 1.1 ng/mL (0.0-3.6) Creatine Kinase MB Relative Index 0.8 % (0-4) Troponin I Quantitative < 0.017 ng/mL (0.000-0.055) < 0.017 ng/mL (0.000-0.055) LW-Qae-G-Type Natriuretic Peptide 1042 pg/mL (0-449) Total Protein 7.4 g/dL (6.4-8.2) Albumin 3.3 g/dL (3.4-5.0) Albumin/Globulin Ratio 0.8 (1.0-1.7) Procalcitonin 0.25 ng/mL (0.00-0.10) SARS-CoV-2 RNA (MAXWELL) Negative (Negative) Glucose (Fingerstick) 123 mg/dL (70-99) Test 06/10/20 18:00 06/10/20 21:24 06/11/20 03:45 06/11/20 09:15 Troponin I Quantitative < 0.017 ng/mL (0.000-0.055) Glucose (Fingerstick) 201 mg/dL (70-99) 208 mg/dL (70-99) White Blood Count 7.5 x10^3/uL (4.0-11.0) Red Blood Count 3.85 x10^6/uL (3.50-5.40) Hemoglobin 11.3 g/dL (12.0-15.5) Hematocrit 35.0 % (36.0-47.0) Mean Corpuscular Volume 91 fL (79-100) Mean Corpuscular Hemoglobin 29 pg (25-35) Mean Corpuscular Hemoglobin Concent 32 g/dL (31-37) Red Cell Distribution Width 14.6 % (11.5-14.5) Platelet Count 172 x10^3/uL (140-400) Neutrophils (%) (Auto) 94 % (31-73) Lymphocytes (%) (Auto) 5 % (24-48) Monocytes (%) (Auto) 1 % (0-9) Eosinophils (%) (Auto) 0 % (0-3) Basophils (%) (Auto) 0 % (0-3) Neutrophils # (Auto) 7.0 x10^3/uL (1.8-7.7) Lymphocytes # (Auto) 0.4 x10^3/uL (1.0-4.8) Monocytes # (Auto) 0.1 x10^3/uL (0.0-1.1) Eosinophils # (Auto) 0.0 x10^3/uL (0.0-0.7) Basophils # (Auto) 0.0 x10^3/uL (0.0-0.2) Sodium Level 139 mmol/L (136-145) Potassium Level 4.4 mmol/L (3.5-5.1) Chloride Level 98 mmol/L (98-107) Carbon Dioxide Level 37 mmol/L (21-32) Anion Gap 4 (6-14) Blood Urea Nitrogen 24 mg/dL (7-20) Creatinine 0.9 mg/dL (0.6-1.0) Estimated GFR (Cockcroft-Gault) 59.1 BUN/Creatinine Ratio 27 (6-20) Glucose Level 175 mg/dL (70-99) Calcium Level 8.6 mg/dL (8.5-10.1) Total Bilirubin 0.4 mg/dL (0.2-1.0) Aspartate Amino Transf (AST/SGOT) 20 U/L (15-37) Alanine Aminotransferase (ALT/SGPT) 21 U/L (14-59) Alkaline Phosphatase 99 U/L (46-116) Total Protein 7.6 g/dL (6.4-8.2) Albumin 2.8 g/dL (3.4-5.0) Albumin/Globulin Ratio 0.6 (1.0-1.7) Test 06/11/20 12:24 06/11/20 20:45 06/12/20 04:00 06/12/20 07:17 Glucose (Fingerstick) 177 mg/dL (70-99) 243 mg/dL (70-99) 107 mg/dL (70-99) White Blood Count 9.7 x10^3/uL (4.0-11.0) Red Blood Count 3.92 x10^6/uL (3.50-5.40) Hemoglobin 11.6 g/dL (12.0-15.5) Hematocrit 35.4 % (36.0-47.0) Mean Corpuscular Volume 90 fL (79-100) Mean Corpuscular Hemoglobin 30 pg (25-35) Mean Corpuscular Hemoglobin Concent 33 g/dL (31-37) Red Cell Distribution Width 14.7 % (11.5-14.5) Platelet Count 229 x10^3/uL (140-400) Neutrophils (%) (Auto) 84 % (31-73) Lymphocytes (%) (Auto) 10 % (24-48) Monocytes (%) (Auto) 6 % (0-9) Eosinophils (%) (Auto) 0 % (0-3) Basophils (%) (Auto) 0 % (0-3) Neutrophils # (Auto) 8.1 x10^3/uL (1.8-7.7) Lymphocytes # (Auto) 1.0 x10^3/uL (1.0-4.8) Monocytes # (Auto) 0.6 x10^3/uL (0.0-1.1) Eosinophils # (Auto) 0.0 x10^3/uL (0.0-0.7) Basophils # (Auto) 0.0 x10^3/uL (0.0-0.2) Sodium Level 138 mmol/L (136-145) Potassium Level 4.1 mmol/L (3.5-5.1) Chloride Level 95 mmol/L (98-107) Carbon Dioxide Level 38 mmol/L (21-32) Anion Gap 5 (6-14) Blood Urea Nitrogen 39 mg/dL (7-20) Creatinine 1.2 mg/dL (0.6-1.0) Estimated GFR (Cockcroft-Gault) 42.4 Glucose Level 129 mg/dL (70-99) Calcium Level 9.0 mg/dL (8.5-10.1) Magnesium Level 2.4 mg/dL (1.8-2.4) Laboratory Tests Test 06/11/20 12:24 06/11/20 20:45 06/12/20 04:00 06/12/20 07:17 Glucose (Fingerstick) 177 mg/dL (70-99) 243 mg/dL (70-99) 107 mg/dL (70-99) White Blood Count 9.7 x10^3/uL (4.0-11.0) Red Blood Count 3.92 x10^6/uL (3.50-5.40) Hemoglobin 11.6 g/dL (12.0-15.5) Hematocrit 35.4 % (36.0-47.0) Mean Corpuscular Volume 90 fL (79-100) Mean Corpuscular Hemoglobin 30 pg (25-35) Mean Corpuscular Hemoglobin Concent 33 g/dL (31-37) Red Cell Distribution Width 14.7 % (11.5-14.5) Platelet Count 229 x10^3/uL (140-400) Neutrophils (%) (Auto) 84 % (31-73) Lymphocytes (%) (Auto) 10 % (24-48) Monocytes (%) (Auto) 6 % (0-9) Eosinophils (%) (Auto) 0 % (0-3) Basophils (%) (Auto) 0 % (0-3) Neutrophils # (Auto) 8.1 x10^3/uL (1.8-7.7) Lymphocytes # (Auto) 1.0 x10^3/uL (1.0-4.8) Monocytes # (Auto) 0.6 x10^3/uL (0.0-1.1) Eosinophils # (Auto) 0.0 x10^3/uL (0.0-0.7) Basophils # (Auto) 0.0 x10^3/uL (0.0-0.2) Sodium Level 138 mmol/L (136-145) Potassium Level 4.1 mmol/L (3.5-5.1) Chloride Level 95 mmol/L (98-107) Carbon Dioxide Level 38 mmol/L (21-32) Anion Gap 5 (6-14) Blood Urea Nitrogen 39 mg/dL (7-20) Creatinine 1.2 mg/dL (0.6-1.0) Estimated GFR (Cockcroft-Gault) 42.4 Glucose Level 129 mg/dL (70-99) Calcium Level 9.0 mg/dL (8.5-10.1) Magnesium Level 2.4 mg/dL (1.8-2.4) Microbiology 06/10/20 Blood Culture - Preliminary, Resulted NO GROWTH AFTER 1 DAY Medications Current Medications Methylprednisolone Sodium Succinate (SOLU-Medrol 125MG VIAL) 125 mg 1X ONCE IV Last administered on 06/10/20at 15:41; Start 06/10/20 at 14:15; Stop 06/10/20 at 14:20; Status DC Ondansetron HCl (Zofran) 4 mg PRN Q8HRS PRN IV NAUSEA/VOMITING; Start 06/10/20 at 14:15; Stop 06/11/20 at 14:14; Status DC Morphine Sulfate (Morphine Sulfate) 2 mg PRN Q2HR PRN IV PAIN; Start 06/10/20 at 14:15; Stop 06/11/20 at 14:14; Status DC Acetaminophen (Tylenol) 650 mg PRN Q4HRS PRN PO FEVER > 100.3'F; Start 06/10/20 at 14:15; Stop 06/11/20 at 14:14; Status DC Ceftriaxone Sodium (Rocephin) 1 gm 1X ONCE IVP Last administered on 06/10/20at 15:41; Start 06/10/20 at 14:30; Stop 06/10/20 at 14:31; Status DC Furosemide (Lasix) 40 mg DAILY IVP Last administered on 06/11/20at 09:42; Start 06/11/20 at 09:00; Stop 06/11/20 at 12:03; Status DC Furosemide (Lasix) 40 mg 1X ONCE IVP Last administered on 06/10/20at 18:01; Start 06/10/20 at 16:15; Stop 06/10/20 at 16:26; Status DC Albuterol/ Ipratropium (Duoneb) 3 ml RTQID NEB Last administered on 06/12/20at 07:30; Start 06/10/20 at 20:00 Budesonide (Pulmicort) 0.5 mg RTBID NEB Last administered on 06/12/20at 07:30; Start 06/10/20 at 20:00 Methylprednisolone Sodium Succinate (SOLU-Medrol 40MG VIAL) 40 mg Q12HR IV Last administered on 06/11/20at 09:39; Start 06/10/20 at 21:00; Stop 06/11/20 at 12:03; Status DC Ceftriaxone Sodium (Rocephin) 1 gm Q24H IVP Last administered on 06/11/20 16:03; Start 06/11/20 at 14:00 Azithromycin (Zithromax) 500 mg 1X ONCE PO Last administered on 06/10/20 18:02; Start 06/10/20 at 16:15; Stop 06/10/20 at 16:26; Status DC Azithromycin (Zithromax) 250 mg DAILY PO Last administered on 06/12/20 09:06; Start 06/11/20 at 14:00 Alprazolam (Xanax) 0.5 mg BID PO Last administered on 06/12/20 09:09; Start 06/10/20 at 21:00 Aspirin (Ecotrin) 81 mg DAILYWBKFT PO Last administered on 06/12/20 09:08; Start 06/11/20 at 08:00 Carvedilol (Coreg) 3.125 mg BIDWMEALS PO Last administered on 06/12/20 09:07; Start 06/10/20 at 17:00; Stop 06/12/20 at 09:29; Status DC Docusate Sodium (Colace) 100 mg BID PO Last administered on 06/12/20 09:06; Start 06/10/20 at 21:00 Duloxetine HCl (Cymbalta) 60 mg DAILY PO Last administered on 06/12/20 09:09; Start 06/11/20 at 09:00 Fentanyl (Duragesic 12mcg/ Hr Patch) 1 patch Q3DAYS TD Last administered on 06/11/20 09:41; Start 06/11/20 at 09:00 Acetaminophen/ Hydrocodone Bitart (Lortab 5/325) 1 tab TID PRN PO SEVERE PAIN 7-10 Last administered on 06/12/20 09:07; Start 06/10/20 at 16:15 Lidocaine (Lidoderm) 1 patch DAILY TD Last administered on 06/12/20 09:05; Start 06/10/20 at 17:00 Miscellaneous (Lidoderm Patch Removal) 1 ea QHS MC Last administered on 06/11/20at 20:49; Start 06/10/20 at 21:00 Pregabalin (Lyrica) 50 mg BID PO Last administered on 06/12/20 09:08; Start 06/10/20 at 21:00 Hydroxychloroquine Sulfate (Plaquenil) 200 mg BID PO Last administered on 06/12/20at 09:09; Start 06/10/20 at 21:00 Potassium Chloride (Klor-Con) 20 meq DAILY PO Last administered on 06/11/20at 09:37; Start 06/11/20 at 09:00; Stop 06/11/20 at 12:03; Status DC Pantoprazole Sodium (Protonix) 40 mg DAILYAC PO Last administered on 06/12/20at 09:08; Start 06/11/20 at 07:30 Ropinirole HCl (Requip) 1 mg TID PO Last administered on 06/12/20at 09:08; Start 06/10/20 at 17:00 Sertraline HCl (Zoloft) 100 mg DAILY PO Last administered on 06/12/20at 09:06; Start 06/11/20 at 09:00 Acetaminophen (Tylenol) 325 mg PRN Q6HRS PRN PO MILD PAIN / TEMP > 100.3'F; Start 06/10/20 at 16:15 Trazodone HCl (Desyrel) 50 mg PRN QHS PRN PO INSOMNIA; Start 06/10/20 at 16:15; Stop 06/10/20 at 16:38; Status DC Zolpidem Tartrate (Ambien) 5 mg PRN QHS PRN PO INSOMNIA; Start 06/10/20 at 16:30 Insulin Human Lispro (HumaLOG) 0-6 UNITS BG 300-3... TIDWMEALS SQ ; Start 06/10/20 at 17:00 Vitamin D (Vitamin D3) 1,000 unit DAILY PO Last administered on 06/12/20at 09:08; Start 06/10/20 at 17:00 Enoxaparin Sodium (Lovenox 40mg Syringe) 40 mg Q24H SQ Last administered on 06/11/20at 20:48; Start 06/10/20 at 20:00 Perflutren Protein Type A Microsphe (Optison) 0.66 mg STK-MED ONCE IV ; Start 06/11/20 at 10:18; Stop 06/11/20 at 10:18; Status DC Perflutren Protein Type A Microsphe (Optison) 0.66 mg 1X ONCE IV Last administered on 06/11/20at 11:02; Start 06/11/20 at 11:00; Stop 06/11/20 at 11:11; Status DC Furosemide (Lasix) 40 mg BID92 IVP Last administered on 06/12/20at 09:03; Start 06/11/20 at 12:00; Stop 06/12/20 at 09:20; Status DC Potassium Chloride (Klor-Con) 20 meq BIDWMEALS PO Last administered on 06/12/20at 09:07; Start 06/11/20 at 12:10 Metolazone (Zaroxolyn) 2.5 mg 1X ONCE PO Last administered on 06/11/20at 13:44; Start 06/11/20 at 12:00; Stop 06/11/20 at 12:09; Status DC Prednisone (Prednisone) 30 mg DAILY PO Last administered on 06/12/20at 09:06; Start 06/11/20 at 13:00 Lactobacillus Rhamnosus (Culturelle) 1 cap BID PO Last administered on 06/12/20at 09:06; Start 06/11/20 at 21:00 Bumetanide (Bumex) 1 mg DAILY PO ; Start 06/13/20 at 09:00 Metoprolol Succinate (Toprol Xl) 25 mg DAILY PO ; Start 06/13/20 at 09:00 Active Scripts Active Klor-Con M20 (Potassium Chloride) 20 Meq Tab.er.prt 20 Meq PO QODAY Aspirin 81 Mg Tab.chew 81 Mg PO DAILY Ropinirole Hcl 1 Mg Tablet 1 Mg PO TID Alprazolam 0.5 Mg Tablet 0.5 Mg PO BID FENTANYL 12mcg/hr (Fentanyl) 1 Each Patch.td72 1 Patch TP Q3DAYS Lyrica (Pregabalin) 50 Mg Capsule 1 Cap PO BID Pantoprazole Sodium (Pantoprazole Sodium) 40 Mg Tablet.dr 40 Mg PO DAILY Hydrocodone-Apap 5-325 (Hydrocodone Bit/Acetaminophen) 1 Tab Tablet 1 Tab PO PRN Q8HRS PRN Reported Sertraline Hcl 100 Mg Tablet 100 Mg PO DAILY Miralax (Polyethylene Glycol 3350) 17 Gm Powd.pack 1 Packet PO DAILY PRN 2 Days dissolve in water Plaquenil (Hydroxychloroquine Sulfate) 200 Mg Tablet 1 Tab PO BID 30 Days Nystatin 1 Each Powder.ea. 1 Each MC BID Melatonin 5 Mg Tab.rapdis 1 Tab PO QHS 30 Days Lidocaine PATCH (Lidocaine) 1 Each Adh..patch 1 Each TP DAILY REMOVE AFTER 12 HOURS Lasix (Furosemide) 40 Mg Tablet 1 Tab PO QOD 30 Days Cymbalta (Duloxetine Hcl) 60 Mg Capsule.dr 1 Cap PO DAILY Colace (Docusate Sodium) 100 Mg Capsule 1 Cap PO BID 30 Days Coreg (Carvedilol) 3.125 Mg Tablet 3.125 Mg PO BIDWMEALS Albuterol Sulfate Neb Soln (Albuterol Sulfate) 2.5 Mg/3 Ml Vial.neb 1 Vial NEB PRN Q4HRS Advair 250-50 Diskus (Fluticasone/Salmeterol) 1 Each Disk.w.dev 1 Puff IH BID Vitamin D (Cholecalciferol (Vitamin D3)) 1,000 Unit Capsule 1 Cap PO DAILY Vitals/I & O Vital Sign - Last 24 Hours 06/11/20 06/11/20 06/11/20 06/11/20 11:42 11:49 13:41 15:18 Temp 97.6 97.6 Pulse 87 Resp B/P (MAP) 131/60 (83) Pulse Ox 96 93 91 91 O2 Delivery Nasal Cannula Nasal Cannula Nasal Cannula Nasal Cannula O2 Flow Rate 3.0 5.0 4.0 3.0 06/11/20 06/11/20 06/11/20 06/11/20 15:35 18:29 19:35 20:10 Temp 97.9 97.7 97.9 97.7 Pulse 92 92 96 Resp 22 B/P (MAP) 125/66 (85) 125/66 122/75 (91) Pulse Ox 94 92 O2 Delivery Nasal Cannula Nasal Cannula Nasal Cannula O2 Flow Rate 5.0 4.0 4.0 06/11/20 06/11/20 06/12/20 06/12/20 21:10 23:20 02:40 07:13 Temp 97.7 98.4 98.1 97.7 98.4 98.1 Pulse 81 82 80 Resp 18 20 20 B/P (MAP) 138/74 (95) 145/72 (96) 126/66 (86) Pulse Ox 92 96 96 100 O2 Delivery Nasal Cannula Nasal Cannula Nasal Cannula Nasal Cannula O2 Flow Rate 3.0 4.0 4.0 5.0 5/706/12/20 06/12/20 07:31 09:07 09:07 Pulse 80 B/P (MAP) 126/66 Pulse Ox 94 O2 Delivery Nasal Cannula Nasal Cannula O2 Flow Rate 3.0 2.5 Intake and Output 06/11/20 06/11/20 06/12/20 15:00 23:00 07:00 Intake Total 240 ml 120 ml 200 ml Output Total 1950 ml 650 ml Balance 240 ml -1830 ml -450 ml Justifications for Admission Other Justification Nutrition Consultation Dietary Evaluation: Recommendations by RD: Dietary education by RD Comments: ADA/Cardiac, glucerna REC mvi and vit c per wound protocal honor food preferences and offer snacks/supplements prn Expected Outcomes/Goals: to meet >75% est nutrition needs Malnutrition Findings: Food and Nutrition Intake (Sev: <50% est energy req 5days Fluid Accumulation (Severe): Severe KARAN KIMBLE MD June 12, 2020 09:51
[2020-06-12] MEDS ORDERED: predniSONE 20 MG TABLET PO SCH (10:00)
[2020-06-12] MEDS ORDERED: POTA20TA4 PO (10:06)
[2020-06-12] MEDS ORDERED: BUME1TAB3 PO (10:06)
[2020-06-12] MEDS ORDERED: PRED-220 PO (10:06)
[2020-06-12] MEDS ORDERED: AZIT250T6 PO (10:06)
[2020-06-12] MEDS ORDERED: METO-239 PO (10:06)
--- NOTE | 2020-06-12 10:09 | SNU/HH DC ---
DISCHARGE WITH HOME HEALTH DISCHARGE INFORMATION: Discharge Date: June 12, 2020 Final Diagnosis: Problems Medical Problems: (1) Hyperglycemia Status: Acute (2) Person under investigation for COVID-19 Status: Acute (3) Pneumonia of both lower lobes Status: Acute (4) Shortness of breath Status: Acute Condition on Discharge: Stable CODE STATUS: Code Status: DNR/DNI HOME HEALTH: Face to Face: I certify this patient is under my care and that I, or a nurse practitioner or physician's construction administrative assistant working with me, had a face to face encounter that meets the physician face to face encounter requirements with this patient on [06/12/20]. RN For Eval/Treatment: Yes Physical Therapy For: Evalulation/Treatment Occupational Therapy For: Evaluation/Treatment Pt Meets Homebound Status: Other: (mobility and transfer deficits) POST DISCHARGE ORDERS: Activity Instructions for Disc: Activity as tolerated Weight Bearing Status after Di: As tolerated DIET AFTER DISCHARGE: cardiac and diabetic diet Wound/Incision Care: Change dressing CHECKS AFTER DISCHARGE: Checks after discharge: Check blood press - daily, Check blood sugar, ac/hs FOLLOW-UP: PCP to follow Home Health: dr. kimble Follow Up With: dr. kimble next week Additional Instructions: bmp every for 3 weeks TREATMENT/EQUIPMENT ORDERS: Adaptive Equipment Issued: Wheelchair Discharge Respiratory Equipmen: Oxygen CERTIFICATION STATEMENT: Certification Statement: Certification Statement: Based on the above finding, I certify that this patient is confined to the home and needs intermittent long-term care, physical therapy and/or speech therapy, or continues to need occupational therapy.~ This patient is under my care, and I have initiated the establishment of the plan of care.~ This patient will be followed by myself or a community physician who will periodically review the plan of care. Home Meds Active Scripts Potassium Chloride (KLOR-CON M20) 20 Meq Tab.er.prt, 1 TAB PO DAILY for potassium supplement for 30 Days, #30 TAB 0 Refills Prov:KARAN KIMBLE MD 06/12/20 Prednisone (PREDNISONE ) 10 Mg Tablet, 20 MG PO DAILY for wheezing, #3 TAB Prov:KARAN KIMBLE MD 06/12/20 Bumetanide (BUMETANIDE) 1 Mg Tablet, 1 MG PO DAILY for chf, #30 TAB Prov:KARAN KIMBLE MD 06/12/20 Metoprolol Succinate (METOPROLOL SUCCINATE ( XL )) 25 Mg Tab.er.24h, 25 MG PO DAILY for chf, #30 TAB.SR Prov:KARAN KIMBLE MD 06/12/20 Azithromycin (AZITHROMYCIN TABLET) 250 Mg Tablet, 250 MG PO DAILY for acute bronchitis, #3 TAB Prov:KARAN KIMBLE MD 06/12/20 Aspirin (ASPIRIN) 81 Mg Tab.chew, 81 MG PO DAILY for non obstructive CAD, #30 TAB.CHEW Prov:KARAN KIMBLE MD 07/15/19 Ropinirole Hcl (ROPINIROLE HCL) 1 Mg Tablet, 1 MG PO TID for restless legs syndrome, #90 TAB Prov:KARAN KIMBLE MD 07/15/19 Alprazolam (ALPRAZOLAM) 0.5 Mg Tablet, 0.5 MG PO BID for anxiety, #60 TAB Prov:KARAN KIMBLE MD 07/15/19 Fentanyl (FENTANYL 12mcg/hr) 1 Each Patch.td72, 1 PATCH TP Q3DAYS for chronic back pain, #10 PATCH Prov:KARAN KIMBLE MD 01/23/19 Pregabalin (LYRICA) 50 Mg Capsule, 1 CAP PO BID for fibromyalgia, #60 CAP Prov:KARAN KIMBLE MD 01/23/19 Pantoprazole Sodium (PANTOPRAZOLE SODIUM ) 40 Mg Tablet.dr, 40 MG PO DAILY for gerd, #30 TAB.SR Prov:KARAN KIMBLE MD 01/13/19 Hydrocodone Bit/Acetaminophen (HYDROCODONE-APAP 5-325 ) 1 Tab Tablet, 1 TAB PO PRN Q8HRS PRN for PAIN, #30 TAB 0 Refills Prov:KARAN KIMBLE MD 01/13/19 Reported Medications Sertraline Hcl (SERTRALINE HCL) 100 Mg Tablet, 100 MG PO DAILY for ANTI- DEPRESSANT, TAB 0 Refills 06/10/20 Polyethylene Glycol 3350 (MIRALAX) 17 Gm Powd.pack, 1 PACKET PO DAILY PRN for CONSTIPATION for 2 Days, #2 PACKET 0 Refills dissolve in water 06/10/20 Hydroxychloroquine Sulfate (PLAQUENIL) 200 Mg Tablet, 1 TAB PO BID for unknown for 30 Days, #60 TAB 0 Refills 06/10/20 Nystatin (NYSTATIN) 1 Each Powder.ea., 1 EACH MC BID for yeast, EACH 06/10/20 Melatonin (MELATONIN) 5 Mg Tab.rapdis, 1 TAB PO QHS for sleep for 30 Days, #30 TAB 0 Refills 06/10/20 Lidocaine (Lidocaine PATCH ) 1 Each Adh..patch, 1 EACH TP DAILY for FOR LOCAL PAIN, PATCH REMOVE AFTER 12 HOURS 06/10/20 Duloxetine Hcl (CYMBALTA) 60 Mg Capsule.dr, 1 CAP PO DAILY for unknown, #90 CAP 3 Refills 06/10/20 Docusate Sodium (COLACE) 100 Mg Capsule, 1 CAP PO BID for constipation for 30 Days, #60 CAP 0 Refills 06/10/20 Albuterol Sulfate (ALBUTEROL SULFATE NEB SOLN) 2.5 Mg/3 Ml Vial.neb, 1 VIAL NEB PRN Q4HRS for SOA, #50 VIAL 06/10/20 Fluticasone/Salmeterol (ADVAIR 250-50 DISKUS) 1 Each Disk.w.dev, 1 PUFF IH BID for SOA, #3 INHALER 3 Refills 06/10/20 Cholecalciferol (Vitamin D3) (VITAMIN D) 1,000 Unit Capsule, 1 CAP PO DAILY, #30 CAP 3 Refills 06/24/17 Discontinued Reported Medications Furosemide (LASIX) 40 Mg Tablet, 1 TAB PO QOD for chf for 30 Days, TAB 0 Refills 06/10/20 Carvedilol (COREG ) 3.125 Mg Tablet, 3.125 MG PO BIDWMEALS for CARDIAC, TAB 06/10/20 Discontinued Scripts Potassium Chloride (KLOR-CON M20) 20 Meq Tab.er.prt, 20 MEQ PO QODAY for POTASSIUM SUPPLEMENT, #30 TAB.SR Prov:KARAN KIMBLE MD 12/12/19 KARAN KIMBLE MD June 12, 2020 10:09
--- NOTE | 2020-06-12 10:16 | PDOC ---
Provider Note Date of Service: DATE: 06/12/20 TIME: 10:15 Provider Note discharge summary dictated # [id number] Justifications for Admission Other Justification KARAN KIMBLE MD June 12, 2020 10:16
[2020-06-12 10:27] VITALS: BP 132/65
--- NOTE | 2020-06-12 11:36 | NUR ---
SS following up with discharge planning. SS reviewed pt chart and discussed with pt RN. Pt is currently requiring oxygen via nasal canula. Pt has home oxygen. COVID19 negative. Pt has caregivers at home. Discharge orders for home with home healthcare received. SS contacted pt's DPOA, Esau Barr, , and discussed. Pt's DPOA agreeable to home healthcare and reported that pt had [facility], ; fax [phone], in the past. He reported that pt's caregiver would provide transportation to home. Discharge orders and referral phoned and faxed to [facility]. Pt's RN notified.
--- NOTE | 2020-06-12 12:51 | NUR ---
Discharge Note: SYBIL AUGUSTINE Discharge instructions and discharge home medications reviewed with Sales Professional Bilingual and a copy given. All questions have been answered and understanding verbalized. The following instructions and handouts were given: DISCHARGE INSTRUCTIONS, FOLLOW UP APPOINTMENT, STRESS TEST INSTRUCTIONS, WRITTEN PRESCRIPTIONS, WOUND CARE INSTRUCTIONS Discontinued lines and drains: Peripheral IV intact. Patient discharged to Home w/services with Primary Sales Professional Bilingual via Wheelchair
--- NOTE | 2020-06-12 13:34 | DS ---
DATE OF DISCHARGE: 06/12/2020 CONSULTANTS: Dr. Reed and Dr. Hernandez. FINAL DISCHARGE DIAGNOSES: 1. Acute on chronic diastolic congestive heart failure. 2. Acute on chronic hypoxic respiratory failure. 3. Chronic obstructive pulmonary disease with exacerbation. 4. Acute bronchitis. 5. Diabetes mellitus type 2. 6. Mild protein-calorie malnutrition. 7. Moderate aortic stenosis. HOSPITAL COURSE: The patient is an 89-year-old white female who lives at home with caregivers with a history of chronic diastolic congestive heart failure, chronic hypoxic respiratory failure, COPD, moderate aortic stenosis, diabetes mellitus type 2, treated with diet, hypertension, fibromyalgia, noted a 1-week history of increasing shortness of breath, which worsened the night before admission. She was actually seen in the office earlier in the month and the Lasix was increased from 20 to 40 mg every day. She had some shortness of breath, did not improve. She sought help in the emergency room. She did have a cough with some white sputum. The patient was admitted to the hospital and was diagnosed with acute on chronic diastolic congestive heart failure. Echocardiogram showed a preserved left ventricular ejection fraction with moderate aortic stenosis. She was seen by Dr. Hernandez for Cardiology and Dr. Reed for Pulmonary. CAT scan of the chest showed atelectasis in the right lower lobe and Dr. Reed did not think it was pneumonia. She was treated with IV Rocephin and Zithromax and eventually switched to Zithromax. Her cough is much better and is now nonproductive, initially had white sputum on admission without any fever or leukocytosis. She was treated with IV Solu-Medrol and was switched to prednisone. Her carvedilol was discontinued. She was started on metoprolol succinate 25 mg every day. She was treated with IV Lasix 40 mg every 12 hours and received a dose of metolazone 2.5 mg once yesterday, had a good diuresis and IV Lasix was discontinued today and she will be switched to Bumex 1 mg p.o. daily. On review of her laboratory tests, white count 9.7, hemoglobin 11.6, platelet count 229,000, 84 polys and 10 lymphocytes. Sodium 138, potassium 4.1. The BUN was up to 39, creatinine 1.2. Blood sugar today was 107 by fingerstick. Magnesium 2.4 with a calcium of 9.0. Her COVID-19 test was negative. She did have a CAT scan of the chest done and it showed a right lower lobe consolidation changes with a bronchogram, which was more consistent with atelectasis. The patient will be dismissed to home with home health as well as to make an appointment to see Dr. Castelan office on Monday. DISCHARGE MEDICATIONS: She will be dismissed on Tylenol 325 mg q.6h. p.r.n., alprazolam 0.5 mg b.i.d., aspirin 81 mg every day, Zithromax 250 mg every day for 3 days, Bumex 1 mg every day, Advair 250/50 mcg 1 puff b.i.d., vitamin D at 1000 units every day, Colace 100 mg b.i.d., Cymbalta 60 mg every day, fentanyl 12 mcg patch every 72 hours, [place] 5/325 one tablet t.i.d. p.r.n. for severe pain, Plaquenil 200 mg b.i.d., Humalog insulin sliding scale, low dose before meals t.i.d., albuterol nebulizer treatments every 4 hours p.r.n., lidocaine patch applied every morning, metoprolol succinate 25 mg every day, Protonix 40 mg every day, potassium chloride 20 mEq daily, prednisone 20 mg every day for 3 days, Lyrica 50 mg b.i.d., Requip 1 mg t.i.d., sertraline 100 mg every day, Ambien 5 mg at bedtime p.r.n. FOLLOWUP VISITS: To make an appointment to see Dr. Castelan in the office on Monday. She will be followed by [facility]. She was seen by the wound care team and debrided her right heel wound and the right heel wound is very small and clean. DIOGENES/CHARU COSTELLO: Kenia TID: [id number]
[2020-06-13] MEDS ORDERED: POTASSIUM CHLORIDE 20 MEQ TABLET.ER. PO SCH (08:00)
[2020-06-13] MEDS ORDERED: METOPROLOL SUCC 24HR ER 25 MG TAB.ER.24H. PO SCH (09:00)
[2020-06-13] MEDS ORDERED: BUMETANIDE 1 MG TABLET. PO SCH (09:00)
== END 2020-06-12 12:15 | disposition home health service (06) | DRG 291 ==
LOC: ER 11:26 → 2 SOUTH 14:18
PROVIDERS: ADMIT Internal Medicine; ATTEND Internal Medicine
DX: I11.0 Hypertensive heart disease with heart failure (principal); J96.21 Acute and chronic respiratory failure with hypoxia; E44.1 Mild protein-calorie malnutrition; E87.3 Alkalosis; J44.1 Chronic obstructive pulmonary disease with (acute) exacerbation; J98.11 Atelectasis; Z68.41 Body mass index [BMI] 40.0-44.9, adult; I50.33 Acute on chronic diastolic (congestive) heart failure; E11.42 Type 2 diabetes mellitus with diabetic polyneuropathy; E11.65 Type 2 diabetes mellitus with hyperglycemia; E78.5 Hyperlipidemia, unspecified; I08.0 Rheumatic disorders of both mitral and aortic valves; I25.10 Atherosclerotic heart disease of native coronary artery without angina pectoris; J20.9 Acute bronchitis, unspecified; M19.90 Unspecified osteoarthritis, unspecified site; M79.7 Fibromyalgia; Z20.822 Contact with and (suspected) exposure to COVID-19; Z74.01 Bed confinement status; Z79.899 Other long term (current) drug therapy; Z87.01 Personal history of pneumonia (recurrent); Z87.19 Personal history of other diseases of the digestive system; Z87.440 Personal history of urinary (tract) infections; Z87.891 Personal history of nicotine dependence; Z90.49 Acquired absence of other specified parts of digestive tract; Z90.710 Acquired absence of both cervix and uterus; Z96.649 Presence of unspecified artificial hip joint; Z99.81 Dependence on supplemental oxygen; F32.9 Major depressive disorder, single episode, unspecified; F41.9 Anxiety disorder, unspecified; K21.9 Gastro-esophageal reflux disease without esophagitis; Z66 Do not resuscitate
CPT/HCPCS: 96374; 96375; 99285; C8929; 36415; 71045; 71250; 80048; 80053; 82553; 82962; 83605; 83735; 83880; 84145; 84484; 85007; 85025; 87040; 87070; 87077; 87205; 93005; 94640; 94760; J0696; J1650; J1815; J1940; J2920; J2930; J7512; Q9956; U0003; U0005; G0378; J7626

== ENCOUNTER 2021-01-04 09:42 | Inpatient (IN) | payer MEDICARE ==
[~2021-01-04] VITALS: Ht 152.4 cm; Wt 71.0 kg
[~2021-01-04 09:42] MED LIST changes: +ALBU2.5V5 NEB; +BUME1TAB3 PO; +CARV3.12 PO; +CYCL10TA19 PO; -CYCL10TA2 PO; -DULO60CA6 PO; +DULO60CA7 PO; +FURO-68 PO; +HYDR200T71 PO; +MELA5TAB20 PO; +NYST1POW5 MC; +POLY17PO29 PO; +POTA-121 PO; -POTA20TA4 PO; +SERT-268 PO
--- NOTE | 2021-01-04 10:21 | PHYS DOC ---
Past Medical History Past Medical History: Arthritis, Bronchitis, CAD, CHF, Constipation, COPD, Depression, Diabetes-Type II, Fibromyalgia, GERD, Hypertension, Pneumonia, UTI, Other Additional Past Medical Histor: NEUROPATHY (ESAU MORFIN APRN) Past Surgical History: Cholecystectomy, Hip Replacement, Hysterectomy Additional Past Surgical Histo: NECK/BACK,HIP,EYE,CARPAL TUNNEL (ESAU MORFIN APRN) Smoking Status: Never Smoker Alcohol Use: None Drug Use: None (ESAU MORFIN APRN) General Adult EDM: Chief Complaint: SHORTNESS OF BREATH HPI: HPI: Patient is a 89-year-old female who presents to the emergency department with a chief complaint of increasing shortness of breath over the past week. Patient reports she had started feeling short of breath 1 week ago and contacted her primary care physician Dr. Castelan who started her on albuterol nebulizer treatments 4 times a day which the patient reports doing so every day except for today. Patient reports last night her shortness of breath has become worse. Denies fever or chills, denies cough, denies chest pain or nasal congestion, denies recent illnesses. Reports she has received the COVID-19 and flu vaccination this year. Patient reports history of COPD, congestive heart failure, Alzheimer's disease. Patient reports that she has had CHF exacerbations without peripheral swelling. Patient denies nausea, vomiting, diarrhea. Patient denies visual disturbances, syncopal episodes, or near syncopal episodes. Patient denies other physical complaints or physical concerns. (ESAU MORFIN APRN) Review of Systems: Review of Systems: 14 body systems of review of systems have been reviewed. See HPI for pertinent positives and negative responses, otherwise all other systems are negative, nonpertinent or noncontributory. Constitutional: Negative except as outlined in HPI above. Skin: Negative except as outlined in HPI above. Eyes: Negative except as outlined in HPI above. HENT: Negative except as outlined in HPI above. Respiratory: Negative except as outlined in HPI above. Cardiovascular: Negative except as outlined in HPI above. GI: Negative except as outlined in HPI above. : Negative except as outlined in HPI above. Musculoskeletal: Negative except as outlined in HPI above. Integument: Negative except as outlined in HPI above. Neurologic: Negative except as outlined in HPI above. Endocrine: Negative except as outlined in HPI above. Lymphatic: Negative except as outlined in HPI above. Psychiatric: Negative except as outlined in HPI above. (ESAU MORFIN APRN) Heart Score: C/O Chest Pain: No Risk Factors: Risk Factors: DM, Current or recent (<one month) smoker, HTN, HLP, family history of CAD, obesity. Risk Scores: Score 0 - 3: 2.5% MACE over next 6 weeks - Discharge Home Score 4 - 6: 20.3% MACE over next 6 weeks - Admit for Clinical Observation Score 7 - 10: 72.7% MACE over next 6 weeks - Early Invasive Strategies (ESAU MORFIN APRN) Allergies: Allergies: Allergies Coded Allergies Type Severity Reaction Last Updated Verified Iodinated Contrast Media Allergy Intermediate ITCH 08/05/19 Yes I S O L A T I O N *CONTACT* Allergy Unknown 12/10/19 Yes (ESAU MORFIN APRN) Physical Exam: PE: Constitutional: Well developed, well nourished, no acute distress, non-toxic appearance. 89-year-old female in mild respiratory distress HENT: Normocephalic, atraumatic. Eyes: Conjunctiva normal, no discharge. Neck: Normal range of motion, no stridor. Cardiovascular: No cyanosis appreciated, distal cap refill less than 2 seconds. Regular rate and rhythm. Lungs & Thorax: Patient is in mild respiratory distress, increased work of breathing with abdominal accessory muscle use, audible I/E wheezing, lung sounds with inspiratory/expiratory wheezing in upper lobes, crackles with wet rales throughout basis. No diminished lung sounds appreciated. Patient is 94% on 3 L nasal cannula oxygen. Abdomen: Nontender, no abnormalities noted. Skin: Warm, dry, no erythema, no rash. Patient has stage II pressure ulcer to the coccyx area without skin weeping or infectious process appreciated. Back: No tenderness, no deformities. Extremities: No tenderness, no cyanosis, no clubbing, ROM intact, no edema. Neurologic: Alert and oriented X 3, normal motor function, normal sensory function, no focal deficits noted. Psychologic: Affect normal, judgement normal, mood normal. (ESAU MORFIN APRN) Current Patient Data: Vital Signs: Vital Signs Date Time Temp Pulse Resp B/P (MAP) Pulse Ox O2 Delivery O2 Flow Rate FiO2 11/29/21 09:45 99.3 101 24 159/67 (97) 98 Nasal Cannula 3.0 99.3 (ESAU MORFIN APRN) EKG: EKG: EKG performed at 955 the ED nursing staff shows a sinus tachycardia heart rate 101 bpm with a left bundle branch block no other ectopy appreciated, OR interval 0.180, QTc interval 0.487, no acute STEMI, no ACS, no acute ischemia appreciated EKG interpreted by ED attending physician Dr. Castelan. Reviewed EKG with prior performed on , no significant changes, also reviewed by ED attending physician Dr. Castelan. (ESAU MORFIN APRN) Radiology/Procedures: Radiology/Procedures: REASON: Shortness of breath PROCEDURE: CHEST AP ONLY XR CHEST 1V CLINICAL INDICATIONS: Reason: Shortness of breath / Spl. Instructions: / History: COMPARISON: June 10, 2020. Findings: Chronic bilateral interstitial lung infiltrates are seen. This is unch anged. There is chronic elevation of the right hemidiaphragm and chronic blunting of the right lateral costophrenic angle. No new lung consolidation or pleural effusion is seen. No pneumothorax is evident. Heart size is mildly prominent but stable. 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 The mediastinum is stable. Old healed left rib cage fractures are apparent. IMPRESSION: Chronic bilateral interstitial lung infiltrates. Certainly, superimposed acute interstitial pulmonary edema may be present clinically if there is a clinical finding of rales. No new lung infiltrate is seen otherwise. Electronically signed by: Kin Corral MD (01/04/2021 10:52 AM) [id number] (ESAU MORFIN APRN) Course & Med Decision Making: Course & Med Decision Making Pertinent Labs and Imaging studies reviewed. (See chart for details) 89-year-old female, vital signs reviewed, resents emergency department concerning increase shortness of breath for the past week. Patient's physical examination concerning for COPD exacerbation. The patient does report having pulmonary edema exacerbations and congestive heart failure exacerbations without peripheral edema. Will order chest x-ray, CBC, CMP, troponin I, BNP, EKG, cardiac isoenzymes. Patient's chest x-ray concerning for pulmonary edema along with proBNP elevated, elevated potassium at 5.6, hyponatremia at 3.4, patient CO2 level is normal. Discussed with patient concerning pulmonary edema, recommended admission to the telemetry unit. Patient is amenable to admission to hospital. Called and discussed patient case and ED work-up with patient's primary care physician Dr. Castelan who agrees patient's ED case warrants admission to the hospital for pulmonary edema, recommended starting on 40 mg Lasix, holding potassium at this time, consult pulmonary and cardiology, will consult wound care nurse to evaluate coccyx pressure ulcer, Dr. Castelan requested floor nursing start all home medications but hold p.o. potassium and p.o. Bumex. Patient awaiting telemetry bed at this time. Patient remains hemodynamically stable at this time. 96% O2 sat on 3 L per nasal cannula. Discussed with patient's primary ED nurse Nichole and reviewed Dr. Castelan's request to give verbal report to floor nurse regarding starting all home meds holding the p.o. potassium and p.o. Bumex. (ESAU MORFIN APRN) Course & Med Decision Making I have reviewed documentation as above with below addendums/corrections: Serum sodium was 134. There was a leukocytosis to 15k raising concern for pneumonia when put into context with history and CXR, I reviewed the chart and see ceftriaxone has been initiated by the inpatient team. (DANIELLE CASTELAN MD) Dragon Disclaimer: Dragon Disclaimer: This electronic medical record was generated, in whole or in part, using a voice recognition dictation system. (ESAU MORFIN APRN) Departure Departure Impression: Primary Impression: Pulmonary edema Qualified Codes: J81.0 - Acute pulmonary edema Additional Impressions: Shortness of breath Pressure ulcer of coccygeal region Qualified Codes: L89.152 - Pressure ulcer of sacral region, stage 2 Disposition: 09 ADMITTED INPATIENT Admitting Physician: Esau Castelan (Admit to telemetry unit, consult cardiology, pulmonology, wound care nurse.) (ESAU MORFIN APRN) Condition: GUARDED Referrals: ESAU CASTELAN MD (PCP) ESAU MORFIN APRN Jan 04, 2021 10:21 DANIELLE CASTELAN MD Jan 04, 2021 18:17
[2021-01-04 10:29] LABS: BASO % 0 % (0-3); EOS # 0.1 x10^3/uL (0.0-0.7); EOS % 1 % (0-3); HEMATOCRIT 30.2 % (36.0-47.0); HEMOGLOBIN 9.1 g/dL (12.0-15.5); LYMPH # 0.7 x10^3/uL (1.0-4.8); LYMPH % 5 % (24-48); MEAN CORPUSCULAR HEMOGLOBIN 25 pg (25-35); MEAN CORPUSCULAR HGB CONC 30 g/dL (31-37); MEAN CORPUSCULAR VOLUME 82 fL (79-100); MONO # 0.6 x10^3/uL (0.0-1.1); MONO % 4 % (0-9); NEUT # 13.5 x10^3/uL (1.8-7.7); NEUT % 90 % (31-73); PLATELET COUNT 332 x10^3/uL (140-400); RED BLOOD COUNT 3.67 x10^6/uL (3.50-5.40); RED CELL DISTRIBUTION WIDTH 16.2 % (11.5-14.5)
[2021-01-04] MEDS ORDERED: IPRATRPIUM/ALBUTEROL 0.5/2.5MG 3 ML NEBU. NEB ONE (10:30)
[2021-01-04 10:37] LABS: CALCIUM 8.8 mg/dL (8.5-10.1); CREATININE 0.7 mg/dL (0.6-1.0); GFR 78.8; POTASSIUM 5.6 mmol/L (3.5-5.1)
[2021-01-04] MEDS ORDERED: IPRATRPIUM/ALBUTEROL 0.5/2.5MG 3 ML NEBU. ONE (10:38)
--- NOTE | 2021-01-04 10:41 | EKG ---
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
[2021-01-04 10:50] LABS: ALBUMIN 2.6 g/dL (3.4-5.0); ALBUMIN/GLOBULIN RATIO 0.6 (1.0-1.7); TOTAL BILIRUBIN 0.3 mg/dL (0.2-1.0); TOTAL PROTEIN 7.2 g/dL (6.4-8.2)
--- NOTE | 2021-01-04 10:55 | RAD ---
XR CHEST 1V CLINICAL INDICATIONS: Reason: Shortness of breath / Spl. Instructions: / History: COMPARISON: June 10, 2020. Findings: Chronic bilateral interstitial lung infiltrates are seen. This is unchanged. There is chron ic elevation of the right hemidiaphragm and chronic blunting of the right lateral costophrenic angle. No new lung consolidation or pleural effusion is seen. No pneumothorax is evident. Heart size is mil dly prominent but stable. 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 The mediastinum is sta ble. Old healed left rib cage fractures are apparent. IMPRESSION: Chronic bilateral interstitial lung infiltrates. Certainly, superimposed acute interstiti al pulmonary edema may be present clinically if there is a clinical finding of rales. No new lung inf iltrate is seen otherwise. Electronically signed by: Kin Corral MD (01/04/2021 10:52 AM) [id number]
[2021-01-04] MEDS ORDERED: FUROSEMIDE 40 MG/4 ML VIAL. IVP ONE (13:00)
[2021-01-04 13:14] VITALS: BP 187/72
[2021-01-04 13:32] LABS: % EOS 1 % (0-5); % LYMPHS 3 % (24-48); % MONOS 6 % (0-10); % SEGS 90 % (35-66); HYPOCHROMIA PRESENT; PLT ESTIMATE ADEQUATE (ADEQUATE)
[2021-01-04 15:00] VITALS: BP 186/81
[2021-01-04] MEDS ORDERED: ALBUTEROL SULFATE 2.5 MG/3 ML NEBU. NEB PRN (15:30)
[2021-01-04] MEDS ORDERED: HYDROcodone/APAP 5/325MG 1 TAB TABLET PO PRN ×2 (15:30→16:15)
[2021-01-04] MEDS: LIDOCAINE (700MG/PATCH) PATCH. TP SCH (16:00)
[2021-01-04] MEDS ORDERED: rOPINIRole 1 MG TABLET. PO SCH (16:00)
[2021-01-04] MEDS ORDERED: MAG HYDROX/ALUMINUM HYD/SIMETH 30 ML ORAL.SUSP PO PRN (16:15)
--- NOTE | 2021-01-04 16:43 | PDOC ---
Provider Note Date of Service: DATE: 01/04/21 TIME: 16:42 Provider Note history and physical dictated # [id number] Justifications for Admission Other Justification KARAN KIMBLE MD Jan 04, 2021 16:43
[2021-01-04] MEDS: INSULIN LISPRO 300 UNITS/3 ML VIAL. SQ SCH (17:00)
[2021-01-04] MEDS ORDERED: fentaNYL 25MCG/HR PATCH 1 PATCH PATCH.TD72 TD SCH (17:00)
[2021-01-04] MEDS ORDERED: METOPROLOL SUCC 24HR ER 25 MG TAB.ER.24H. PO ONE (17:30)
[2021-01-04] MEDS: ALBUTEROL SULFATE 2.5 MG/3 ML NEBU. NEB SCH ×2 (18:00→23:12)
--- NOTE | 2021-01-04 18:12 | HP ---
DATE OF SERVICE: 01/04/2021 ADMIT DATE: 01/04/2021 LOCATION: She is in room 650. HISTORY OF PRESENT ILLNESS: The patient is an 89-year-old white female with history of chronic diastolic congestive heart failure; moderate aortic stenosis; chronic obstructive pulmonary disease; chronic hypoxic respiratory failure; diabetes mellitus type 2, treated with diet; hypertension and hyperlipidemia notes a 1-week history of shortness of breath, which worsened over the weekend. The patient called the office last week before , apparently had a cough too and was started on Zithromax, which she completed a 5-day course of treatment. States she has been coughing up some white sputum. She also has been short of breath. She also has some epigastric abdominal discomfort. The patient sought help at the [facility] Emergency Room. She has been using her nebulizer treatments at home also. In the Emergency Room, she had a chest x-ray done, which showed some chronic bilateral interstitial lung infiltrates, which are chronic and superimposed pulmonary edema cannot be ruled out. In addition, she had laboratory test and was noted to have potassium 5.6, BUN 17, creatinine 0.7. Her proBNP was 3276. Albumin was 2.6. Troponin level was 39. Lactic acid level was 1.0. Her BUN and creatinine were normal at 17 and 0.7. COVID-19 test was negative. The patient subsequently admitted to the hospital and received 40 mg of Lasix IV in the Emergency Room. She is admitted for further evaluation of her shortness of breath and cough and also has epigastric abdominal pain and leukocytosis. ALLERGIES: INTOLERANCES TO IV CONTRAST, ATORVASTATIN, CLONIDINE, DOXAZOSIN, FLUVASTATIN, IODINE, LISINOPRIL, LOVASTATIN, NIACIN, NIFEDIPINE AND CRESTOR, MANY OF THESE ARE SIDE EFFECTS. MEDICATIONS: Prior to admission include Advair 250/50 mcg 1 puff b.i.d., albuterol nebulized treatments q.i.d. p.r.n., alprazolam 0.5 mg b.i.d., amlodipine 5 mg every day and she is on aspirin 81 mg every day. She also takes Bumex 1 mg half a tablet every other day, Colace 100 mg b.i.d., Cymbalta 60 mg every day, fentanyl 25 mcg patch every 72 hours, [place] 5/325 one tablet t.i.d. p.r.n., Lyrica 50 mg b.i.d., melatonin 5 mg at bedtime, metoprolol succinate 25 mg every day, Plaquenil 200 mg b.i.d., potassium chloride 20 mEq every other day, Protonix 40 mg every day and Requip 2 mg t.i.d. Also takes sertraline 100 mg every day, vitamin D 1000 units every day and Ambien 10 mg at bedtime. PAST MEDICAL HISTORY: Significant for diabetes mellitus type 2, treated with diet with neuropathy; hypertension; hyperlipidemia; chronic obstructive pulmonary disease. She had a negative stress test on 07/10/2020 and her left ventricular ejection fraction was 70% at that time. An echocardiogram done on 06/11/2020 showed a left ventricular ejection fraction of 55-60% with moderate aortic stenosis and [id number] left ventricular hypertrophy. She has a history of a cataract extraction, right hip hemiarthroplasty. Restless leg syndrome, lumbar spondylosis, chronic diastolic congestive heart failure, chronic hypoxic respiratory failure, COPD and gastritis. She had an esophageal stricture dilated. PAST SURGICAL HISTORY: Cholecystectomy, cardiac cath in 2006 and a pacemaker was placed in 2018, I believe, she had a lumbar laminectomy also. SOCIAL HISTORY: She has caregivers at home. Does not drink alcohol nor does she smoke cigarettes. She is confined to a wheelchair. FAMILY HISTORY: Noncontributory. REVIEW OF SYSTEMS: GENERAL: She denies any fever, chills or sweats in last 3 days. CARDIOVASCULAR: No chest pain. PULMONARY: She has shortness of breath and cough with clear sputum. GASTROINTESTINAL: She had some chest pain, but she pointed to the epigastric area of her abdomen that was tender to touch. It was more epigastric pain and tenderness. ENDOCRINE: She has diabetes, treated with diet. The rest of systems reviewed and are negative except as stated in history of present illness. PHYSICAL EXAMINATION: VITAL SIGNS: Temperature is 99.3 degrees, heart rate is 101, respiratory rate of 22, blood pressure is 140/91, oxygen saturation is 92% on 3 liters per nasal cannula. HEENT: Eyes: Gaze is conjugate. Mouth: Tongue is midline. NECK: There is no cervical lymphadenopathy or thyroid enlargement. HEART: Reveals an S1, S2. There is no S3 or murmur. LUNGS: Reveal crackles bilaterally. She does have chronic lung crackles also, but her crackles appear to be more prominent today. ABDOMEN: Soft. Not distended. She has epigastric and right upper quadrant tenderness without guarding. EXTREMITIES: Lower extremities are without edema. Both feet are warm. SKIN: No rashes. NEUROLOGIC: Coherent. No facial weakness. Able to dorsi and plantarflex her feet, bend her knees and raise her legs up in the air. LABORATORY DATA: Review of her laboratory tests, COVID test screen was negative. White count 15,000; hemoglobin 9.1, previously, it was 11; platelet count 332,000 with 90 polys and 5 lymphocytes. Sodium 134, potassium 5.6, chloride 93, total CO2 of 32, BUN 17, creatinine 0.7, blood sugar 102. Lactic acid 1.0. Liver function tests were normal. The troponin high sensitivity was normal at 39. The proBNP was increased to 3276, albumin 2.6. DIAGNOSTIC DATA: Chest x-ray is as stated above with chronic interstitial lung infiltrates, superimposed pulmonary edema cannot be ruled out. The electrocardiogram per the radar technician showed sinus tachycardia, left axis deviation and consider anteroseptal myocardial damage. ASSESSMENT: 1. Acute on chronic diastolic congestive heart failure. 2. Leukocytosis. 3. Acute bronchitis, rule out pneumonia. 4. Chronic obstructive pulmonary disease. 5. Acute on chronic hypoxic respiratory failure. 6. Diabetes mellitus type 2, treated with diet. 7. Hypertension. 8. Hyperlipidemia. 9. Hyperkalemia. 10. Anemia. 11. Severe protein-calorie malnutrition. 12. Moderate aortic stenosis. That was per echocardiogram in 06/2020. 13. Restless leg syndrome. 14. Debility. PLAN: Admit her to the hospital. Consult Dr. Pizarro for Pulmonary, Dr. Jones for Cardiology, placed on telemetry. Discontinue 40 mg of Lasix IV in the Emergency Room. We will order Lasix 40 mg IV in the morning. She wishes to be a do not resuscitate, does not want CPR or ventilator and we have ordered some IV Solu-Medrol 40 mg IV every 12 hours and start her on Rocephin 1 gram IV every 24 hours. Obtain a CAT scan of the chest, abdomen and pelvis without contrast to rule out pneumonia and also to evaluate her epigastric right upper quadrant tenderness, but she does have a history of a cholecystectomy. We will renew her home medicines except for the potassium chloride and the Bumex. We will give her 40 mg of Lasix IV again tomorrow morning. We will get an arterial blood gas and see if she has any CO2 retention. We will continue with her Protonix and order some antacids, Mylanta every 2 hours p.r.n. Order heparin for deep vein thrombosis prophylaxis 5000 units subcutaneous every 12 hours. Continue with her other home medications. Repeat her labs tomorrow and get an amylase and lipase and a CBC and a CMP. We will order an echocardiogram. Put her on a diabetic, cardiac diet and continue with her metoprolol. RADHA DR: Kenia TID: [id number]
[2021-01-04] MEDS: cefTRIAXone IV Push 1 GM VIAL. IVP SCH (19:01)
[2021-01-04 19:25] VITALS: BP 138/86
[2021-01-04] MEDS: IPRATRPIUM/ALBUTEROL 0.5/2.5MG 3 ML NEBU. NEB SCH (19:43)
[2021-01-04] MEDS: BUDESONIDE 0.5 MG/2 ML NEBU. NEB SCH (19:44)
[2021-01-04] MEDS: PATCH REMOVAL. MC SCH (21:00)
[2021-01-04] MEDS ORDERED: NON FORMULARY ITEM (Melatonin 1 TAB) PO SCH (21:00)
[2021-01-04] MEDS ORDERED: NON FORMULARY ITEM (Fluticasone/Salmeterol (Advair 250-50 Diskus) 1 PUFF) IH SCH (21:00)
[2021-01-04] MEDS: NYSTATIN TOPICAL POWDER 15GM BOTTLE. TP SCH (21:00)
[2021-01-04] MEDS: ALPRAZolam 0.5 MG TABLET PO SCH (21:23)
[2021-01-04] MEDS: rOPINIRole 1 MG TABLET. PO SCH (21:23)
[2021-01-04] MEDS: ZOLPIDEM 5 MG TABLET. PO PRN (21:23)
[2021-01-04] MEDS: PREGABALIN 50 MG CAPSULE PO SCH (21:23)
[2021-01-04] MEDS: HYDROXYCHLOROQUINE 200 MG TABLET PO SCH (21:23)
[2021-01-04] MEDS: methylPREDNISolone SOD SUCC PF 40 MG/ML VIAL. IV SCH (21:23)
[2021-01-04] MEDS: DOCUSATE SODIUM 100 MG CAPSULE. PO SCH (21:23)
[2021-01-04] MEDS: HEPARIN for SUB-Q USE 5,000 UNIT/ML VIAL. SQ SCH (21:24)
[2021-01-04 21:52] LABS: BASE EXCESS ABG 11 mmol/L (-3-3); HCO3 ABG 36 mmol/L (21-28); PCO2 ABG 50 mmHg (35-46); PO2 ABG 75 mmHg (65-108); SAT O2 ABG 94 % (92-99)
[2021-01-04 21:53] LABS: FIO2 ABG 36
[2021-01-04 23:00] VITALS: BP 145/65
[2021-01-05 03:40] VITALS: BP 153/67
[2021-01-05] MEDS: ALBUTEROL SULFATE 2.5 MG/3 ML NEBU. NEB SCH ×4 (04:33→21:00)
[2021-01-05 06:23] LABS: BASO % 0 % (0-3); EOS % 0 % (0-3); HEMATOCRIT 30.4 % (36.0-47.0); HEMOGLOBIN 9.3 g/dL (12.0-15.5); LYMPH # 0.6 x10^3/uL (1.0-4.8); LYMPH % 5 % (24-48); MEAN CORPUSCULAR HEMOGLOBIN 25 pg (25-35); MEAN CORPUSCULAR HGB CONC 31 g/dL (31-37); MEAN CORPUSCULAR VOLUME 81 fL (79-100); MONO # 0.3 x10^3/uL (0.0-1.1); MONO % 2 % (0-9); NEUT # 11.1 x10^3/uL (1.8-7.7); NEUT % 93 % (31-73); PLATELET COUNT 379 x10^3/uL (140-400); RED BLOOD COUNT 3.76 x10^6/uL (3.50-5.40); RED CELL DISTRIBUTION WIDTH 16.1 % (11.5-14.5)
[2021-01-05 07:00] VITALS: BP 133/83
[2021-01-05 07:12] LABS: ALBUMIN 2.3 g/dL (3.4-5.0); ALBUMIN/GLOBULIN RATIO 0.4 (1.0-1.7); CALCIUM 8.9 mg/dL (8.5-10.1); CREATININE 0.7 mg/dL (0.6-1.0); GFR 78.8; POTASSIUM 4.3 mmol/L (3.5-5.1); TOTAL BILIRUBIN 0.3 mg/dL (0.2-1.0); TOTAL PROTEIN 7.8 g/dL (6.4-8.2)
[2021-01-05] MEDS: IPRATRPIUM/ALBUTEROL 0.5/2.5MG 3 ML NEBU. NEB SCH ×4 (07:26→21:02)
[2021-01-05] MEDS: INSULIN LISPRO 300 UNITS/3 ML VIAL. SQ SCH ×3 (08:00→17:00)
[2021-01-05] MEDS: CHOLECALCIFEROL (VITAMIN D3) 1,000 UNIT TABLET PO SCH (08:13)
[2021-01-05] MEDS: SERTRALINE 50 MG TABLET. PO SCH (08:13)
[2021-01-05] MEDS: DULoxetine HCL 30 MG CAPSULE.DR PO SCH (08:13)
[2021-01-05] MEDS: DOCUSATE SODIUM 100 MG CAPSULE. PO SCH ×2 (08:13→20:43)
[2021-01-05] MEDS: ASPIRIN CHEWABLE 81 MG TABLET. PO SCH (08:13)
[2021-01-05] MEDS: methylPREDNISolone SOD SUCC PF 40 MG/ML VIAL. IV SCH ×2 (08:14→20:44)
[2021-01-05] MEDS: FUROSEMIDE 40 MG/4 ML VIAL. IVP SCH (08:14)
[2021-01-05] MEDS: rOPINIRole 1 MG TABLET. PO SCH ×3 (08:14→20:44)
[2021-01-05] MEDS: METOPROLOL SUCC 24HR ER 50 MG TAB.ER.24H. PO SCH (08:15)
[2021-01-05] MEDS: PANTOPRAZOLE 40 MG TABLET.DR. PO SCH (08:15)
[2021-01-05] MEDS: HYDROXYCHLOROQUINE 200 MG TABLET PO SCH ×2 (08:15→20:43)
[2021-01-05] MEDS: ALPRAZolam 0.5 MG TABLET PO SCH ×2 (08:15→20:43)
[2021-01-05] MEDS: LIDOCAINE (700MG/PATCH) PATCH. TP SCH (08:16)
[2021-01-05] MEDS: HEPARIN for SUB-Q USE 5,000 UNIT/ML VIAL. SQ SCH ×2 (08:18→20:44)
--- NOTE | 2021-01-05 08:33 | PDOC ---
PULMONARY PROGRESS NOTES DATE: 01/05/21 TIME: 08:33 Vitals Vital Signs Date Time Temp Pulse Resp B/P (MAP) Pulse Ox O2 Delivery O2 Flow Rate FiO2 01/05/21 08:15 112 153/67 01/05/21 03:40 99.1 22 95 Nasal Cannula 4.0 99.1 General: Alert, Oriented X4 Lungs: Clear Cardiovascular: S1, S2 Abdomen: Other Extremities: No Edema Labs Laboratory Tests Test 01/04/21 10:10 01/04/21 11:20 01/04/21 21:01 01/04/21 21:50 White Blood Count 15.0 x10^3/uL (4.0-11.0) Red Blood Count 3.67 x10^6/uL (3.50-5.40) Hemoglobin 9.1 g/dL (12.0-15.5) Hematocrit 30.2 % (36.0-47.0) Mean Corpuscular Volume 82 fL (79-100) Mean Corpuscular Hemoglobin 25 pg (25-35) Mean Corpuscular Hemoglobin Concent 30 g/dL (31-37) Red Cell Distribution Width 16.2 % (11.5-14.5) Platelet Count 332 x10^3/uL (140-400) Neutrophils (%) (Auto) 90 % (31-73) Lymphocytes (%) (Auto) 5 % (24-48) Monocytes (%) (Auto) 4 % (0-9) Eosinophils (%) (Auto) 1 % (0-3) Basophils (%) (Auto) 0 % (0-3) Neutrophils # (Auto) 13.5 x10^3/uL (1.8-7.7) Lymphocytes # (Auto) 0.7 x10^3/uL (1.0-4.8) Monocytes # (Auto) 0.6 x10^3/uL (0.0-1.1) Eosinophils # (Auto) 0.1 x10^3/uL (0.0-0.7) Basophils # (Auto) 0.0 x10^3/uL (0.0-0.2) Segmented Neutrophils % 90 % (35-66) Lymphocytes % 3 % (24-48) Monocytes % 6 % (0-10) Eosinophils % 1 % (0-5) Platelet Estimate Adequate (ADEQUATE) Hypochromasia Present Sodium Level 134 mmol/L (136-145) Potassium Level 5.6 mmol/L (3.5-5.1) Chloride Level 93 mmol/L (98-107) Carbon Dioxide Level 32 mmol/L (21-32) Anion Gap 9 (6-14) Blood Urea Nitrogen 17 mg/dL (7-20) Creatinine 0.7 mg/dL (0.6-1.0) Estimated GFR (Cockcroft-Gault) 78.8 BUN/Creatinine Ratio 24 (6-20) Glucose Level 102 mg/dL (70-99) Lactic Acid Level 1.0 mmol/L (0.4-2.0) Calcium Level 8.8 mg/dL (8.5-10.1) Total Bilirubin 0.3 mg/dL (0.2-1.0) Aspartate Amino Transf (AST/SGOT) 37 U/L (15-37) Alanine Aminotransferase (ALT/SGPT) 22 U/L (14-59) Alkaline Phosphatase 110 U/L (46-116) Creatine Kinase 180 U/L (26-192) Creatine Kinase MB (Mass) 1.4 ng/mL (0.0-3.6) Creatine Kinase MB Relative Index 0.8 % (0-4) Troponin I High Sensitivity 39 ng/L (4-50) [id number]-Type Natriuretic Peptide 3276 pg/mL (0-449) Total Protein 7.2 g/dL (6.4-8.2) Albumin 2.6 g/dL (3.4-5.0) Albumin/Globulin Ratio 0.6 (1.0-1.7) SARS-CoV-2 Antigen (Rapid) Negative (NEGATIVE) Glucose (Fingerstick) 94 mg/dL (70-99) O2 Saturation 94 % (92-99) Arterial Blood pH 7.47 (7.35-7.45) Arterial Blood pCO2 at Patient Temp 50 mmHg (35-46) Arterial Blood pO2 at Patient Temp 75 mmHg (65-108) Arterial Blood HCO3 36 mmol/L (21-28) Arterial Blood Base Excess 11 mmol/L (-3-3) FiO2 36 Test 01/05/21 05:25 White Blood Count 12.0 x10^3/uL (4.0-11.0) Red Blood Count 3.76 x10^6/uL (3.50-5.40) Hemoglobin 9.3 g/dL (12.0-15.5) Hematocrit 30.4 % (36.0-47.0) Mean Corpuscular Volume 81 fL (79-100) Mean Corpuscular Hemoglobin 25 pg (25-35) Mean Corpuscular Hemoglobin Concent 31 g/dL (31-37) Red Cell Distribution Width 16.1 % (11.5-14.5) Platelet Count 379 x10^3/uL (140-400) Neutrophils (%) (Auto) 93 % (31-73) Lymphocytes (%) (Auto) 5 % (24-48) Monocytes (%) (Auto) 2 % (0-9) Eosinophils (%) (Auto) 0 % (0-3) Basophils (%) (Auto) 0 % (0-3) Neutrophils # (Auto) 11.1 x10^3/uL (1.8-7.7) Lymphocytes # (Auto) 0.6 x10^3/uL (1.0-4.8) Monocytes # (Auto) 0.3 x10^3/uL (0.0-1.1) Eosinophils # (Auto) 0.0 x10^3/uL (0.0-0.7) Basophils # (Auto) 0.0 x10^3/uL (0.0-0.2) Sodium Level 134 mmol/L (136-145) Potassium Level 4.3 mmol/L (3.5-5.1) Chloride Level 89 mmol/L (98-107) Carbon Dioxide Level 33 mmol/L (21-32) Anion Gap 12 (6-14) Blood Urea Nitrogen 17 mg/dL (7-20) Creatinine 0.7 mg/dL (0.6-1.0) Estimated GFR (Cockcroft-Gault) 78.8 BUN/Creatinine Ratio 24 (6-20) Glucose Level 118 mg/dL (70-99) Calcium Level 8.9 mg/dL (8.5-10.1) Iron Level 19 ug/dL (50-170) Total Iron Binding Capacity 219 ug/dL (250-450) Iron Saturation 9 % (15-34) Ferritin 166 ng/mL (8-252) Total Bilirubin 0.3 mg/dL (0.2-1.0) Aspartate Amino Transf (AST/SGOT) 32 U/L (15-37) Alanine Aminotransferase (ALT/SGPT) 19 U/L (14-59) Alkaline Phosphatase 104 U/L (46-116) Total Protein 7.8 g/dL (6.4-8.2) Albumin 2.3 g/dL (3.4-5.0) Albumin/Globulin Ratio 0.4 (1.0-1.7) Amylase Level 26 U/L (25-115) Lipase 53 U/L (73-393) Laboratory Tests Test 01/04/21 10:10 01/04/21 11:20 01/04/21 21:01 01/04/21 21:50 White Blood Count 15.0 x10^3/uL (4.0-11.0) Red Blood Count 3.67 x10^6/uL (3.50-5.40) Hemoglobin 9.1 g/dL (12.0-15.5) Hematocrit 30.2 % (36.0-47.0) Mean Corpuscular Volume 82 fL (79-100) Mean Corpuscular Hemoglobin 25 pg (25-35) Mean Corpuscular Hemoglobin Concent 30 g/dL (31-37) Red Cell Distribution Width 16.2 % (11.5-14.5) Platelet Count 332 x10^3/uL (140-400) Neutrophils (%) (Auto) 90 % (31-73) Lymphocytes (%) (Auto) 5 % (24-48) Monocytes (%) (Auto) 4 % (0-9) Eosinophils (%) (Auto) 1 % (0-3) Basophils (%) (Auto) 0 % (0-3) Neutrophils # (Auto) 13.5 x10^3/uL (1.8-7.7) Lymphocytes # (Auto) 0.7 x10^3/uL (1.0-4.8) Monocytes # (Auto) 0.6 x10^3/uL (0.0-1.1) Eosinophils # (Auto) 0.1 x10^3/uL (0.0-0.7) Basophils # (Auto) 0.0 x10^3/uL (0.0-0.2) Segmented Neutrophils % 90 % (35-66) Lymphocytes % 3 % (24-48) Monocytes % 6 % (0-10) Eosinophils % 1 % (0-5) Platelet Estimate Adequate (ADEQUATE) Hypochromasia Present Sodium Level 134 mmol/L (136-145) Potassium Level 5.6 mmol/L (3.5-5.1) Chloride Level 93 mmol/L (98-107) Carbon Dioxide Level 32 mmol/L (21-32) Anion Gap 9 (6-14) Blood Urea Nitrogen 17 mg/dL (7-20) Creatinine 0.7 mg/dL (0.6-1.0) Estimated GFR (Cockcroft-Gault) 78.8 BUN/Creatinine Ratio 24 (6-20) Glucose Level 102 mg/dL (70-99) Lactic Acid Level 1.0 mmol/L (0.4-2.0) Calcium Level 8.8 mg/dL (8.5-10.1) Total Bilirubin 0.3 mg/dL (0.2-1.0) Aspartate Amino Transf (AST/SGOT) 37 U/L (15-37) Alanine Aminotransferase (ALT/SGPT) 22 U/L (14-59) Alkaline Phosphatase 110 U/L (46-116) Creatine Kinase 180 U/L (26-192) Creatine Kinase MB (Mass) 1.4 ng/mL (0.0-3.6) Creatine Kinase MB Relative Index 0.8 % (0-4) Troponin I High Sensitivity 39 ng/L (4-50) DP-Wse-R-Type Natriuretic Peptide 3276 pg/mL (0-449) Total Protein 7.2 g/dL (6.4-8.2) Albumin 2.6 g/dL (3.4-5.0) Albumin/Globulin Ratio 0.6 (1.0-1.7) SARS-CoV-2 Antigen (Rapid) Negative (NEGATIVE) Glucose (Fingerstick) 94 mg/dL (70-99) O2 Saturation 94 % (92-99) Arterial Blood pH 7.47 (7.35-7.45) Arterial Blood pCO2 at Patient Temp 50 mmHg (35-46) Arterial Blood pO2 at Patient Temp 75 mmHg (65-108) Arterial Blood HCO3 36 mmol/L (21-28) Arterial Blood Base Excess 11 mmol/L (-3-3) FiO2 36 Test 01/05/21 05:25 White Blood Count 12.0 x10^3/uL (4.0-11.0) Red Blood Count 3.76 x10^6/uL (3.50-5.40) Hemoglobin 9.3 g/dL (12.0-15.5) Hematocrit 30.4 % (36.0-47.0) Mean Corpuscular Volume 81 fL (79-100) Mean Corpuscular Hemoglobin 25 pg (25-35) Mean Corpuscular Hemoglobin Concent 31 g/dL (31-37) Red Cell Distribution Width 16.1 % (11.5-14.5) Platelet Count 379 x10^3/uL (140-400) Neutrophils (%) (Auto) 93 % (31-73) Lymphocytes (%) (Auto) 5 % (24-48) Monocytes (%) (Auto) 2 % (0-9) Eosinophils (%) (Auto) 0 % (0-3) Basophils (%) (Auto) 0 % (0-3) Neutrophils # (Auto) 11.1 x10^3/uL (1.8-7.7) Lymphocytes # (Auto) 0.6 x10^3/uL (1.0-4.8) Monocytes # (Auto) 0.3 x10^3/uL (0.0-1.1) Eosinophils # (Auto) 0.0 x10^3/uL (0.0-0.7) Basophils # (Auto) 0.0 x10^3/uL (0.0-0.2) Sodium Level 134 mmol/L (136-145) Potassium Level 4.3 mmol/L (3.5-5.1) Chloride Level 89 mmol/L (98-107) Carbon Dioxide Level 33 mmol/L (21-32) Anion Gap 12 (6-14) Blood Urea Nitrogen 17 mg/dL (7-20) Creatinine 0.7 mg/dL (0.6-1.0) Estimated GFR (Cockcroft-Gault) 78.8 BUN/Creatinine Ratio 24 (6-20) Glucose Level 118 mg/dL (70-99) Calcium Level 8.9 mg/dL (8.5-10.1) Iron Level 19 ug/dL (50-170) Total Iron Binding Capacity 219 ug/dL (250-450) Iron Saturation 9 % (15-34) Ferritin 166 ng/mL (8-252) Total Bilirubin 0.3 mg/dL (0.2-1.0) Aspartate Amino Transf (AST/SGOT) 32 U/L (15-37) Alanine Aminotransferase (ALT/SGPT) 19 U/L (14-59) Alkaline Phosphatase 104 U/L (46-116) Total Protein 7.8 g/dL (6.4-8.2) Albumin 2.3 g/dL (3.4-5.0) Albumin/Globulin Ratio 0.4 (1.0-1.7) Amylase Level 26 U/L (25-115) Lipase 53 U/L (73-393) Medications Active Scripts Medications Dose Route/Sig Max Daily Dose Days Date Category Dose Instructions Klor-Con M20 (Potassium Chloride) 20 Meq Tab.er.prt 1 Tab PO DAILY 30 06/12/20 Rx Prednisone (Prednisone) 10 Mg Tablet 20 Mg PO DAILY 06/12/20 Rx Bumetanide 1 Mg Tablet 1 Mg PO DAILY 06/12/20 Rx Metoprolol Succinate ( Xl ) (Metoprolol Succinate) 25 Mg Tab.er.24h 25 Mg PO DAILY 06/12/20 Rx Sertraline Hcl 100 Mg Tablet 100 Mg PO DAILY 06/10/20 Reported Miralax (Polyethylene Glycol 3350) 17 Gm Powd.pack 1 Packet PO DAILY PRN 2 06/10/20 Reported dissolve in water Nystatin 1 Each Powder.ea. 1 Each MC BID 06/10/20 Reported Melatonin 5 Mg Tab.rapdis 1 Tab PO QHS 30 06/10/20 Reported Lidocaine PATCH (Lidocaine) 1 Each Adh..patch 1 Each TP DAILY 06/10/20 Reported REMOVE AFTER 12 HOURS Cymbalta (Duloxetine Hcl) 60 Mg Capsule.dr 1 Cap PO DAILY 06/10/20 Reported Colace (Docusate Sodium) 100 Mg Capsule 1 Cap PO BID 30 06/10/20 Reported Albuterol Sulfate Neb Soln (Albuterol Sulfate) 2.5 Mg/3 Ml Vial.neb 1 Vial NEB PRN Q4HRS 06/10/20 Reported Advair 250-50 Diskus (Fluticasone/Salmeterol) 1 Each Disk.w.dev 1 Puff IH BID 06/10/20 Reported Aspirin 81 Mg Tab.chew 81 Mg PO DAILY 6/8/20 Rx Ropinirole Hcl 1 Mg Tablet 1 Mg PO TID 07/15/19 Rx Alprazolam 0.5 Mg Tablet 0.5 Mg PO BID 07/15/19 Rx FENTANYL 12mcg/hr (Fentanyl) 1 Each Patch.td72 1 Patch TP Q3DAYS 01/23/19 Rx Lyrica (Pregabalin) 50 Mg Capsule 1 Cap PO BID 01/23/19 Rx Pantoprazole Sodium (Pantoprazole Sodium) 40 Mg Tablet.dr 40 Mg PO DAILY 01/13/19 Rx Hydrocodone-Apap 5-325 (Hydrocodone Bit/Acetaminophen) 1 Tab Tablet 1 Tab PO PRN Q8HRS PRN 01/13/19 Rx Vitamin D (Cholecalciferol (Vitamin D3)) 1,000 Unit Capsule 1 Cap PO DAILY 06/24/17 Reported Impression . Full consult dictated Respiratory failure secondary to acute on chronic diastolic heart failure See orders We will follow MEDINA PAYNE MD Jan 05, 2021 08:33
[2021-01-05] MEDS: PREGABALIN 50 MG CAPSULE PO SCH ×2 (09:00→20:43)
[2021-01-05] MEDS ORDERED: METOPROLOL SUCC 24HR ER 25 MG TAB.ER.24H. PO SCH (09:00)
[2021-01-05] MEDS: NYSTATIN TOPICAL POWDER 15GM BOTTLE. TP SCH ×2 (09:00→20:44)
[2021-01-05] MEDS ORDERED: SERTRALINE 50 MG TABLET. PO SCH (09:00)
[2021-01-05] MEDS ORDERED: predniSONE 20 MG TABLET PO SCH (09:00)
[2021-01-05] MEDS ORDERED: BUMETANIDE 1 MG TABLET. PO SCH (09:00)
[2021-01-05] MEDS ORDERED: CHOLECALCIFEROL (VITAMIN D3) 1,000 UNIT TABLET PO SCH (09:00)
--- NOTE | 2021-01-05 09:52 | PDOC ---
PROGRESS NOTES Date of Service DATE: 01/05/21 TIME: 09:48 Subjective Subjective feels better. not short of breath. good diuresis. lab reviewed. nsr currently. question of PAF Objective Objective Vital Signs Date Time Temp Pulse Resp B/P (MAP) Pulse Ox O2 Delivery O2 Flow Rate FiO2 01/05/21 08:15 112 153/67 01/05/21 07:00 98.8 18 96 Nasal Cannula 4.0 98.8 Intake and Output 01/05/21 07:00 Intake Total 300 ml Output Total 1300 ml Balance -1000 ml Intake Oral 300 ml Output Urine Total 1300 ml # Voids 1 # Bowel Movements 1 Physical Exam Abdomen: Soft, Other (mild epigastric tenderness) Extremities: No edema General: Alert HEENT: Atraumatic Lungs: Other (crackles in bases which she has at baseline) Neuro: Normal speech Psych/Mental Status: Mood NL Skin: No rashes Assessment Assessment Problems1. Acute on chronic diastolic congestive heart failure. 2. Leukocytosis. better 3. Acute bronchitis, rule out pneumonia. 4. Chronic obstructive pulmonary disease. 5. Acute on chronic hypoxic respiratory failure. 6. Diabetes mellitus type 2, treated with diet. 7. Hypertension. 8. Hyperlipidemia. 9. Hyperkalemia.resolved 10. Anemia of chronic disease 11. Severe protein-calorie malnutrition. 12. Moderate aortic stenosis. That was per echocardiogram in 06/2020. 13. Restless leg syndrome. 14. Debility. epigastric and RUQ abdominal pain Medical Problems: (1) Pressure ulcer of coccygeal region Status: Acute (2) Pulmonary edema Status: Acute (3) Shortness of breath Status: Acute Plan Plan of Care continue iv lasix ct chest and abdomen and pelvis telemetry cardiology and pulmonary consults continue oxygen and budesonide and duoneb nebulizer rx and iv solumedrol continue iv solumedrol lovenox for dvt prophylaxis Comment Review of Relevant I have reviewed the following items lizbeth (where applicable) has been applied. Labs Laboratory Tests Test 01/04/21 10:10 01/04/21 11:20 01/04/21 21:01 01/04/21 21:50 White Blood Count 15.0 x10^3/uL (4.0-11.0) Red Blood Count 3.67 x10^6/uL (3.50-5.40) Hemoglobin 9.1 g/dL (12.0-15.5) Hematocrit 30.2 % (36.0-47.0) Mean Corpuscular Volume 82 fL (79-100) Mean Corpuscular Hemoglobin 25 pg (25-35) Mean Corpuscular Hemoglobin Concent 30 g/dL (31-37) Red Cell Distribution Width 16.2 % (11.5-14.5) Platelet Count 332 x10^3/uL (140-400) Neutrophils (%) (Auto) 90 % (31-73) Lymphocytes (%) (Auto) 5 % (24-48) Monocytes (%) (Auto) 4 % (0-9) Eosinophils (%) (Auto) 1 % (0-3) Basophils (%) (Auto) 0 % (0-3) Neutrophils # (Auto) 13.5 x10^3/uL (1.8-7.7) Lymphocytes # (Auto) 0.7 x10^3/uL (1.0-4.8) Monocytes # (Auto) 0.6 x10^3/uL (0.0-1.1) Eosinophils # (Auto) 0.1 x10^3/uL (0.0-0.7) Basophils # (Auto) 0.0 x10^3/uL (0.0-0.2) Segmented Neutrophils % 90 % (35-66) Lymphocytes % 3 % (24-48) Monocytes % 6 % (0-10) Eosinophils % 1 % (0-5) Platelet Estimate Adequate (ADEQUATE) Hypochromasia Present Sodium Level 134 mmol/L (136-145) Potassium Level 5.6 mmol/L (3.5-5.1) Chloride Level 93 mmol/L (98-107) Carbon Dioxide Level 32 mmol/L (21-32) Anion Gap 9 (6-14) Blood Urea Nitrogen 17 mg/dL (7-20) Creatinine 0.7 mg/dL (0.6-1.0) Estimated GFR (Cockcroft-Gault) 78.8 BUN/Creatinine Ratio 24 (6-20) Glucose Level 102 mg/dL (70-99) Lactic Acid Level 1.0 mmol/L (0.4-2.0) Calcium Level 8.8 mg/dL (8.5-10.1) Total Bilirubin 0.3 mg/dL (0.2-1.0) Aspartate Amino Transf (AST/SGOT) 37 U/L (15-37) Alanine Aminotransferase (ALT/SGPT) 22 U/L (14-59) Alkaline Phosphatase 110 U/L (46-116) Creatine Kinase 180 U/L (26-192) Creatine Kinase MB (Mass) 1.4 ng/mL (0.0-3.6) Creatine Kinase MB Relative Index 0.8 % (0-4) Troponin I High Sensitivity 39 ng/L (4-50) JK-Tei-K-Type Natriuretic Peptide 3276 pg/mL (0-449) Total Protein 7.2 g/dL (6.4-8.2) Albumin 2.6 g/dL (3.4-5.0) Albumin/Globulin Ratio 0.6 (1.0-1.7) SARS-CoV-2 RNA (MAXWELL) Negative (Negative) SARS-CoV-2 Antigen (Rapid) Negative (NEGATIVE) Glucose (Fingerstick) 94 mg/dL (70-99) O2 Saturation 94 % (92-99) Arterial Blood pH 7.47 (7.35-7.45) Arterial Blood pCO2 at Patient Temp 50 mmHg (35-46) Arterial Blood pO2 at Patient Temp 75 mmHg (65-108) Arterial Blood HCO3 36 mmol/L (21-28) Arterial Blood Base Excess 11 mmol/L (-3-3) FiO2 36 Test 01/05/21 05:25 01/05/21 08:32 White Blood Count 12.0 x10^3/uL (4.0-11.0) Red Blood Count 3.76 x10^6/uL (3.50-5.40) Hemoglobin 9.3 g/dL (12.0-15.5) Hematocrit 30.4 % (36.0-47.0) Mean Corpuscular Volume 81 fL (79-100) Mean Corpuscular Hemoglobin 25 pg (25-35) Mean Corpuscular Hemoglobin Concent 31 g/dL (31-37) Red Cell Distribution Width 16.1 % (11.5-14.5) Platelet Count 379 x10^3/uL (140-400) Neutrophils (%) (Auto) 93 % (31-73) Lymphocytes (%) (Auto) 5 % (24-48) Monocytes (%) (Auto) 2 % (0-9) Eosinophils (%) (Auto) 0 % (0-3) Basophils (%) (Auto) 0 % (0-3) Neutrophils # (Auto) 11.1 x10^3/uL (1.8-7.7) Lymphocytes # (Auto) 0.6 x10^3/uL (1.0-4.8) Monocytes # (Auto) 0.3 x10^3/uL (0.0-1.1) Eosinophils # (Auto) 0.0 x10^3/uL (0.0-0.7) Basophils # (Auto) 0.0 x10^3/uL (0.0-0.2) Sodium Level 134 mmol/L (136-145) Potassium Level 4.3 mmol/L (3.5-5.1) Chloride Level 89 mmol/L (98-107) Carbon Dioxide Level 33 mmol/L (21-32) Anion Gap 12 (6-14) Blood Urea Nitrogen 17 mg/dL (7-20) Creatinine 0.7 mg/dL (0.6-1.0) Estimated GFR (Cockcroft-Gault) 78.8 BUN/Creatinine Ratio 24 (6-20) Glucose Level 118 mg/dL (70-99) Calcium Level 8.9 mg/dL (8.5-10.1) Iron Level 19 ug/dL (50-170) Total Iron Binding Capacity 219 ug/dL (250-450) Iron Saturation 9 % (15-34) Ferritin 166 ng/mL (8-252) Total Bilirubin 0.3 mg/dL (0.2-1.0) Aspartate Amino Transf (AST/SGOT) 32 U/L (15-37) Alanine Aminotransferase (ALT/SGPT) 19 U/L (14-59) Alkaline Phosphatase 104 U/L (46-116) Total Protein 7.8 g/dL (6.4-8.2) Albumin 2.3 g/dL (3.4-5.0) Albumin/Globulin Ratio 0.4 (1.0-1.7) Amylase Level 26 U/L (25-115) Lipase 53 U/L (73-393) Glucose (Fingerstick) 82 mg/dL (70-99) Laboratory Tests Test 01/04/21 10:10 01/04/21 11:20 01/04/21 21:01 01/04/21 21:50 White Blood Count 15.0 x10^3/uL (4.0-11.0) Red Blood Count 3.67 x10^6/uL (3.50-5.40) Hemoglobin 9.1 g/dL (12.0-15.5) Hematocrit 30.2 % (36.0-47.0) Mean Corpuscular Volume 82 fL (79-100) Mean Corpuscular Hemoglobin 25 pg (25-35) Mean Corpuscular Hemoglobin Concent 30 g/dL (31-37) Red Cell Distribution Width 16.2 % (11.5-14.5) Platelet Count 332 x10^3/uL (140-400) Neutrophils (%) (Auto) 90 % (31-73) Lymphocytes (%) (Auto) 5 % (24-48) Monocytes (%) (Auto) 4 % (0-9) Eosinophils (%) (Auto) 1 % (0-3) Basophils (%) (Auto) 0 % (0-3) Neutrophils # (Auto) 13.5 x10^3/uL (1.8-7.7) Lymphocytes # (Auto) 0.7 x10^3/uL (1.0-4.8) Monocytes # (Auto) 0.6 x10^3/uL (0.0-1.1) Eosinophils # (Auto) 0.1 x10^3/uL (0.0-0.7) Basophils # (Auto) 0.0 x10^3/uL (0.0-0.2) Segmented Neutrophils % 90 % (35-66) Lymphocytes % 3 % (24-48) Monocytes % 6 % (0-10) Eosinophils % 1 % (0-5) Platelet Estimate Adequate (ADEQUATE) Hypochromasia Present Sodium Level 134 mmol/L (136-145) Potassium Level 5.6 mmol/L (3.5-5.1) Chloride Level 93 mmol/L (98-107) Carbon Dioxide Level 32 mmol/L (21-32) Anion Gap 9 (6-14) Blood Urea Nitrogen 17 mg/dL (7-20) Creatinine 0.7 mg/dL (0.6-1.0) Estimated GFR (Cockcroft-Gault) 78.8 BUN/Creatinine Ratio 24 (6-20) Glucose Level 102 mg/dL (70-99) Lactic Acid Level 1.0 mmol/L (0.4-2.0) Calcium Level 8.8 mg/dL (8.5-10.1) Total Bilirubin 0.3 mg/dL (0.2-1.0) Aspartate Amino Transf (AST/SGOT) 37 U/L (15-37) Alanine Aminotransferase (ALT/SGPT) 22 U/L (14-59) Alkaline Phosphatase 110 U/L (46-116) Creatine Kinase 180 U/L (26-192) Creatine Kinase MB (Mass) 1.4 ng/mL (0.0-3.6) Creatine Kinase MB Relative Index 0.8 % (0-4) Troponin I High Sensitivity 39 ng/L (4-50) VH-Cgc-U-Type Natriuretic Peptide 3276 pg/mL (0-449) Total Protein 7.2 g/dL (6.4-8.2) Albumin 2.6 g/dL (3.4-5.0) Albumin/Globulin Ratio 0.6 (1.0-1.7) SARS-CoV-2 RNA (MAXWELL) Negative (Negative) SARS-CoV-2 Antigen (Rapid) Negative (NEGATIVE) Glucose (Fingerstick) 94 mg/dL (70-99) O2 Saturation 94 % (92-99) Arterial Blood pH 7.47 (7.35-7.45) Arterial Blood pCO2 at Patient Temp 50 mmHg (35-46) Arterial Blood pO2 at Patient Temp 75 mmHg (65-108) Arterial Blood HCO3 36 mmol/L (21-28) Arterial Blood Base Excess 11 mmol/L (-3-3) FiO2 36 Test 01/05/21 05:25 01/05/21 08:32 White Blood Count 12.0 x10^3/uL (4.0-11.0) Red Blood Count 3.76 x10^6/uL (3.50-5.40) Hemoglobin 9.3 g/dL (12.0-15.5) Hematocrit 30.4 % (36.0-47.0) Mean Corpuscular Volume 81 fL (79-100) Mean Corpuscular Hemoglobin 25 pg (25-35) Mean Corpuscular Hemoglobin Concent 31 g/dL (31-37) Red Cell Distribution Width 16.1 % (11.5-14.5) Platelet Count 379 x10^3/uL (140-400) Neutrophils (%) (Auto) 93 % (31-73) Lymphocytes (%) (Auto) 5 % (24-48) Monocytes (%) (Auto) 2 % (0-9) Eosinophils (%) (Auto) 0 % (0-3) Basophils (%) (Auto) 0 % (0-3) Neutrophils # (Auto) 11.1 x10^3/uL (1.8-7.7) Lymphocytes # (Auto) 0.6 x10^3/uL (1.0-4.8) Monocytes # (Auto) 0.3 x10^3/uL (0.0-1.1) Eosinophils # (Auto) 0.0 x10^3/uL (0.0-0.7) Basophils # (Auto) 0.0 x10^3/uL (0.0-0.2) Sodium Level 134 mmol/L (136-145) Potassium Level 4.3 mmol/L (3.5-5.1) Chloride Level 89 mmol/L (98-107) Carbon Dioxide Level 33 mmol/L (21-32) Anion Gap 12 (6-14) Blood Urea Nitrogen 17 mg/dL (7-20) Creatinine 0.7 mg/dL (0.6-1.0) Estimated GFR (Cockcroft-Gault) 78.8 BUN/Creatinine Ratio 24 (6-20) Glucose Level 118 mg/dL (70-99) Calcium Level 8.9 mg/dL (8.5-10.1) Iron Level 19 ug/dL (50-170) Total Iron Binding Capacity 219 ug/dL (250-450) Iron Saturation 9 % (15-34) Ferritin 166 ng/mL (8-252) Total Bilirubin 0.3 mg/dL (0.2-1.0) Aspartate Amino Transf (AST/SGOT) 32 U/L (15-37) Alanine Aminotransferase (ALT/SGPT) 19 U/L (14-59) Alkaline Phosphatase 104 U/L (46-116) Total Protein 7.8 g/dL (6.4-8.2) Albumin 2.3 g/dL (3.4-5.0) Albumin/Globulin Ratio 0.4 (1.0-1.7) Amylase Level 26 U/L (25-115) Lipase 53 U/L (73-393) Glucose (Fingerstick) 82 mg/dL (70-99) Medications Current Medications Albuterol/ Ipratropium (Duoneb) 3 ml 1X ONCE NEB Last administered on 01/04/21at 10:43; Start 01/04/21 at 10:30; Stop 01/04/21 at 10:38; Status DC Albuterol/ Ipratropium (Duoneb) 3 ml STK-MED ONCE .ROUTE ; Start 01/04/21 at 10:38; Stop 01/04/21 at 10:39; Status DC Furosemide (Lasix) 40 mg 1X ONCE IVP Last administered on 01/04/21at 16:00; Start 01/04/21 at 13:00; Stop 01/04/21 at 13:01; Status DC Albuterol Sulfate (Ventolin Neb Soln) 2.5 mg PRN Q4HRS PRN NEB SHORTNESS OF BREATH; Start 01/04/21 at 15:30 Alprazolam (Xanax) 0.5 mg BID PO Last administered on 01/05/21at 08:15; Start 01/04/21 at 21:00 Aspirin (Aspirin Chewable) 81 mg DAILY PO Last administered on 01/05/21at 08:13; Start 01/05/21 at 09:00 Bumetanide (Bumex) 1 mg DAILY PO ; Start 01/05/21 at 09:00; Stop 01/04/21 at 16:28; Status DC Docusate Sodium (Colace) 100 mg BID PO Last administered on 01/05/21at 08:13; Start 01/04/21 at 21:00 Fentanyl (Duragesic 12mcg/ Hr Patch) 1 patch Q3DAYS TD ; Start 01/07/21 at 09:00; Stop 01/04/21 at 16:28; Status DC Acetaminophen/ Hydrocodone Bitart (Lortab 5/325) 1 tab PRN Q8HRS PRN PO MODERATE PAIN; Start 01/04/21 at 15:30; Stop 01/04/21 at 16:37; Status DC Lidocaine (Lidoderm) 1 patch DAILY TP Last administered on 01/05/21at 08:16; Start 01/04/21 at 16:00 Metoprolol Succinate (Toprol Xl) 25 mg DAILY PO ; Start 01/05/21 at 09:00; Stop 01/04/21 at 17:15; Status DC Pantoprazole Sodium (Protonix) 40 mg DAILYAC PO Last administered on 01/05/21at 08:15; Start 01/05/21 at 07:30 Polyethylene Glycol (miraLAX PACKET) 17 gm PRN DAILY PRN PO CONSTIPATION; Start 01/04/21 at 15:30 Prednisone (Prednisone) 20 mg DAILY PO ; Start 01/05/21 at 09:00; Stop 01/04/21 at 16:28; Status DC Pregabalin (Lyrica) 50 mg BID PO Last administered on 01/04/21at 21:23; Start 01/04/21 at 21:00 Ropinirole HCl (Requip) 1 mg TID PO ; Start 01/04/21 at 16:00; Stop 01/04/21 at 16:28; Status DC Vitamin D (Vitamin D3) 1,000 unit DAILY PO Last administered on 01/05/21at 08:13; Start 01/05/21 at 09:00 Duloxetine HCl (Cymbalta) 60 mg DAILY PO Last administered on 01/05/21at 08:13; Start 01/05/21 at 09:00 Non-Formulary Medication (Fluticasone/ Salmeterol (Advair 250-50 Diskus)) 1 puff BID IH ; Start 01/04/21 at 21:00; Status UNV Non-Formulary Medication (Melatonin ) 1 tab QHS PO ; Start 01/04/21 at 21:00; Status UNV Nystatin (Nystop) 1 shady BID TP ; Start 01/04/21 at 21:00 Sertraline HCl (Zoloft) 100 mg DAILY PO Last administered on 01/05/21at 08:13; Start 01/05/21 at 09:00 Miscellaneous (Lidoderm Patch Removal) 1 ea QHS MC Last administered on 01/04/21at 21:00; Start 01/04/21 at 21:00 Albuterol Sulfate (Ventolin Neb Soln) 2.5 mg Q6HRS NEB ; Start 01/04/21 at 18:00 Budesonide (Pulmicort) 0.5 mg RTBID NEB ; Start 01/04/21 at 20:00 Fentanyl (Duragesic 25mcg/ Hr Patch) 1 patch Q3DAYS TD ; Start 01/04/21 at 17:00 Acetaminophen/ Hydrocodone Bitart (Lortab 5/325) 1 tab PRN Q4HRS PRN PO PAIN; Start 01/04/21 at 16:15; Stop 01/04/21 at 16:42; Status DC Ropinirole HCl (Requip) 2 mg TID PO Last administered on 01/05/21at 08:14; St art 01/04/21 at 21:00 Albuterol/ Ipratropium (Duoneb) 3 ml RTQID NEB ; Start 01/04/21 at 20:00 Hydroxychloroquine Sulfate (Plaquenil) 200 mg BID PO Last administered on 01/05/21at 08:15; Start 01/04/21 at 21:00 Al Hydroxide/Mg Hydroxide (Mylanta Plus Xs) 30 ml PRN Q2HR PRN PO HEARTBURN / GAS; Start 01/04/21 at 16:15 Heparin Sodium (Porcine) (Heparin Sodium) 5,000 unit Q12HR SQ Last administered on 01/05/21at 08:18; Start 01/04/21 at 21:00 Methylprednisolone Sodium Succinate (SOLU-Medrol 40MG VIAL) 40 mg Q12HR IV Last administered on 01/05/21at 08:14; Start 01/04/21 at 21:00 Insulin Human Lispro (HumaLOG) 0-6 UNITS BG 300-39... TIDWMEALS SQ ; Start 01/04/21 at 17:00 Furosemide (Lasix) 40 mg DAILY IVP Last administered on 01/05/21at 08:14; Start 01/05/21 at 09:00 Sertraline HCl (Zoloft) 100 mg DAILY PO ; Start 01/05/21 at 09:00; Stop 01/04/21 at 16:37; Status DC Zolpidem Tartrate (Ambien) 5 mg PRN QHS PRN PO INSOMNIA Last administered on 01/04/21at 21:23; Start 01/04/21 at 16:15 Vitamin D (Vitamin D3) 1,000 unit DAILY PO ; Start 01/05/21 at 09:00; Status UNV Ceftriaxone Sodium (Rocephin) 1 gm Q24H IVP Last administered on 01/04/21at 19:01; Start 01/04/21 at 17:00 Metoprolol Succinate (Toprol Xl) 50 mg DAILY PO Last administered on 01/05/21at 08:15; Start 01/05/21 at 09:00 Metoprolol Succinate (Toprol Xl) 25 mg 1X ONCE PO Last administered on 01/04/21at 19:00; Start 01/04/21 at 17:30; Stop 01/04/21 at 17:31; Status DC Active Scripts Active Klor-Con M20 (Potassium Chloride) 20 Meq Tab.er.prt 1 Tab PO DAILY 30 Days Prednisone (Prednisone) 10 Mg Tablet 20 Mg PO DAILY Bumetanide 1 Mg Tablet 1 Mg PO DAILY Metoprolol Succinate ( Xl ) (Metoprolol Succinate) 25 Mg Tab.er.24h 25 Mg PO DAILY Aspirin 81 Mg Tab.chew 81 Mg PO DAILY Ropinirole Hcl 1 Mg Tablet 1 Mg PO TID Alprazolam 0.5 Mg Tablet 0.5 Mg PO BID FENTANYL 12mcg/hr (Fentanyl) 1 Each Patch.td72 1 Patch TP Q3DAYS Lyrica (Pregabalin) 50 Mg Capsule 1 Cap PO BID Pantoprazole Sodium (Pantoprazole Sodium) 40 Mg Tablet. 40 Mg PO DAILY Hydrocodone-Apap 5-325 (Hydrocodone Bit/Acetaminophen) 1 Tab Tablet 1 Tab PO PRN Q8HRS PRN Reported Sertraline Hcl 100 Mg Tablet 100 Mg PO DAILY Miralax (Polyethylene Glycol 3350) 17 Gm Powd.pack 1 Packet PO DAILY PRN 2 Days dissolve in water Nystatin 1 Each Powder.ea. 1 Each MC BID Melatonin 5 Mg Tab.rapdis 1 Tab PO QHS 30 Days Lidocaine PATCH (Lidocaine) 1 Each Adh..patch 1 Each TP DAILY REMOVE AFTER 12 HOURS Cymbalta (Duloxetine Hcl) 60 Mg Capsule. 1 Cap PO DAILY Colace (Docusate Sodium) 100 Mg Capsule 1 Cap PO BID 30 Days Albuterol Sulfate Neb Soln (Albuterol Sulfate) 2.5 Mg/3 Ml Vial.neb 1 Vial NEB PRN Q4HRS Advair 250-50 Diskus (Fluticasone/Salmeterol) 1 Each Disk.w.dev 1 Puff IH BID Vitamin D (Cholecalciferol (Vitamin D3)) 1,000 Unit Capsule 1 Cap PO DAILY Vitals/I & O Vital Sign - Last 24 Hours 01/04/21 01/04/21 01/04/21 01/04/21 10:20 10:45 11:19 11:49 Pulse 101 101 101 Resp 24 22 B/P (MAP) 166/67 (100) 158/68 (98) 140/91 (107) Pulse Ox 100 93 92 92 O2 Delivery Nasal Cannula Nasal Cannula Nasal Cannula Nasal Cannula O2 Flow Rate 3.0 2.0 3.0 3.0 01/04/21 01/04/21 01/04/21 01/04/21 13:14 15:00 15:30 19:00 Temp 99.2 98.7 99.2 98.7 Pulse 111 119 119 Resp 24 20 B/P (MAP) 187/72 (110) 186/81 (116) 186/81 Pulse Ox 95 93 O2 Delivery Nasal Cannula Nasal Cannula Nasal Cannula O2 Flow Rate 2.0 4.0 3.0 01/04/21 01/04/21 01/04/21 01/05/21 19:25 20:00 23:00 03:40 Temp 97.4 98.4 99.1 97.4 98.4 99.1 Pulse 22 109 112 Resp 22 B/P (MAP) 138/86 (103) 145/65 (91) 153/67 (95) Pulse Ox 93 96 95 O2 Delivery Nasal Cannula Nasal Cannula Nasal Cannula Nasal Cannula O2 Flow Rate 4.0 4.0 4.0 4.0 01/05/21 01/05/21 07:00 08:15 Temp 98.8 98.8 Pulse 120 112 Resp 18 B/P (MAP) 133/83 (100) 153/67 Pulse Ox 96 O2 Delivery Nasal Cannula O2 Flow Rate 4.0 Intake and Output 01/04/21 01/04/21 01/05/21 15:00 23:00 07:00 Intake Total 300 ml 0 ml Output Total 1300 ml Balance 300 ml -1300 ml Justifications for Admission Other Justification KARAN KIMBLE MD Jan 05, 2021 09:52
--- NOTE | 2021-01-05 10:09 | PDOC2 ---
CARDIAC CONSULT DATE OF CONSULT Date of Consult DATE: 01/05/21 TIME: 09:41 REASON FOR CONSULT Reason for Consult: pulmonary edema REFERRING PHYSICIAN Referring Physician: Tone SOURCE Source: Chart review, Patient HISTORY OF PRESENT ILLNESS HISTORY OF PRESENT ILLNESS This is an 89 yo female admitted for complains of SOA which has worsened over the weekend. Also has been having abdominal with associated coughing and was recently started on zithromax. This pain is mainly in the epigastric region which is reproducible with palpation. She uses O2 at home at 2LPM and it has increased to 4LPM. She receives 24 hour care. She has been coughing out some light yellow sputum. No fever or chills and has been vaccinated for covid-19. No chest pain, n/v. PAST MEDICAL HISTORY Past Medical History Cardiovascular: CHF, HTN, Hyperlipidemia, CAD, SSS, CSH, LBBB Pulmonary: COPD, Pneumonia CENTRAL NERVOUS SYSTEM: Peripheral neuropathy Heme/Onc: Anemia NOS Psych: Anxiety, Depression Musculoskeletal: low back pain, Osteoarthritis Rheumatologic: Fibromyalgia, Gout Renal/: UTI Endocrine: Diabetes PAST SURGICAL HISTORY Past Surgical History Pacemaker, Appendectomy, Cholecystectomy, Cataract Removal, Total hip replacement, Hysterectomy FAMILY HISTORY Family History: Heart Disease SOCIAL HISTORY Smoke: No ALCOHOL: none Drugs: None Lives: Alone CURRENT MEDICATIONS CURRENT MEDICATIONS Current Medications Medications (Trade) Dose Ordered Sig/Lindsey Route PRN Reason Start Time Stop Time Status Last Admin Dose Admin Albuterol/ Ipratropium (Duoneb) 3 ml 1X ONCE NEB 01/04/21 10:30 01/04/21 10:38 DC 01/04/21 10:43 Furosemide (Lasix) 40 mg 1X ONCE IVP 01/04/21 13:00 01/04/21 13:01 DC 01/04/21 16:00 Alprazolam (Xanax) 0.5 mg BID PO 01/04/21 21:00 01/05/21 08:15 Aspirin (Aspirin Chewable) 81 mg DAILY PO 01/05/21 09:00 01/05/21 08:13 Docusate Sodium (Colace) 100 mg BID PO 01/04/21 21:00 01/05/21 08:13 Lidocaine (Lidoderm) 1 patch DAILY TP 01/04/21 16:00 01/05/21 08:16 Pantoprazole Sodium (Protonix) 40 mg DAILYAC PO 01/05/21 07:30 01/05/21 08:15 Pregabalin (Lyrica) 50 mg BID PO 01/04/21 21:00 01/04/21 21:23 Vitamin D (Vitamin D3) 1,000 unit DAILY PO 01/05/21 09:00 01/05/21 08:13 Duloxetine HCl (Cymbalta) 60 mg DAILY PO 01/05/21 09:00 01/05/21 08:13 Sertraline HCl (Zoloft) 100 mg DAILY PO 01/05/21 09:00 01/05/21 08:13 Miscellaneous (Lidoderm Patch Removal) 1 ea QHS MC 01/04/21 21:00 01/04/21 21:00 Ropinirole HCl (Requip) 2 mg TID PO 01/04/21 21:00 01/05/21 08:14 Hydroxychloroquine Sulfate (Plaquenil) 200 mg BID PO 01/04/21 21:00 01/05/21 08:15 Heparin Sodium (Porcine) (Heparin Sodium) 5,000 unit Q12HR SQ 01/04/21 21:00 01/05/21 08:18 Methylprednisolone Sodium Succinate (SOLU-Medrol 40MG VIAL) 40 mg Q12HR IV 01/04/21 21:00 01/05/21 08:14 Furosemide (Lasix) 40 mg DAILY IVP 01/05/21 09:00 01/05/21 08:14 Zolpidem Tartrate (Ambien) 5 mg PRN QHS PRN PO INSOMNIA 01/04/21 16:15 01/04/21 21:23 Ceftriaxone Sodium (Rocephin) 1 gm Q24H IVP 01/04/21 17:00 01/04/21 19:01 Metoprolol Succinate (Toprol Xl) 50 mg DAILY PO 01/05/21 09:00 01/05/21 08:15 Metoprolol Succinate (Toprol Xl) 25 mg 1X ONCE PO 01/04/21 17:30 01/04/21 17:31 DC 01/04/21 19:00 ALLERGIES ALLERGIES: Coded Allergies: Iodinated Contrast Media (Verified Allergy, Intermediate, ITCH, 08/05/19) I S O L A T I O N *CONTACT* (Verified Allergy, Unknown, 12/10/19) ESBL ROS Review of System 14 point ROS evaluated with pertinent positives noted per HPI PHYSICAL EXAM General: Alert, Oriented X3, Cooperative, No acute distress HEENT: Atraumatic, Mucous membr. moist/pink Lungs: Other (diminished) Heart: Regular rate (Paced rhythm), Other (distant heart sounds) Abdomen: Soft, No tenderness Extremities: No cyanosis, No edema Skin: Other (wound to coccyx) Neuro: Normal speech, Sensation intact Psych/Mental Status: Mental status NL, Mood NL MUSCULOSKELETAL: Osteoarthritic changes both hands VITALS/I&O VITALS/I&O: Vital Signs Date Time Temp Pulse Resp B/P (MAP) Pulse Ox O2 Delivery O2 Flow Rate FiO2 01/05/21 08:15 112 153/67 01/05/21 07:00 98.8 18 96 Nasal Cannula 4.0 98.8 I & O 01/04/21 01/04/21 01/05/21 15:00 23:00 07:00 Intake Total 300 ml 0 ml Output Total 1300 ml Balance 300 ml -1300 ml LABS Lab: Laboratory Tests Test 01/04/21 10:10 01/04/21 11:20 01/04/21 21:01 01/04/21 21:50 White Blood Count 15.0 x10^3/uL (4.0-11.0) H Red Blood Count 3.67 x10^6/uL (3.50-5.40) Hemoglobin 9.1 g/dL (12.0-15.5) L Hematocrit 30.2 % (36.0-47.0) L Mean Corpuscular Volume 82 fL (79-100) Mean Corpuscular Hemoglobin 25 pg (25-35) Mean Corpuscular Hemoglobin Concent 30 g/dL (31-37) L Red Cell Distribution Width 16.2 % (11.5-14.5) H Platelet Count 332 x10^3/uL (140-400) Neutrophils (%) (Auto) 90 % (31-73) H Lymphocytes (%) (Auto) 5 % (24-48) L Monocytes (%) (Auto) 4 % (0-9) Eosinophils (%) (Auto) 1 % (0-3) Basophils (%) (Auto) 0 % (0-3) Neutrophils # (Auto) 13.5 x10^3/uL (1.8-7.7) H Lymphocytes # (Auto) 0.7 x10^3/uL (1.0-4.8) L Monocytes # (Auto) 0.6 x10^3/uL (0.0-1.1) Eosinophils # (Auto) 0.1 x10^3/uL (0.0-0.7) Basophils # (Auto) 0.0 x10^3/uL (0.0-0.2) Segmented Neutrophils % 90 % (35-66) H Lymphocytes % 3 % (24-48) L Monocytes % 6 % (0-10) Eosinophils % 1 % (0-5) Platelet Estimate Adequate (ADEQUATE) Hypochromasia Present Sodium Level 134 mmol/L (136-145) L Potassium Level 5.6 mmol/L (3.5-5.1) H Chloride Level 93 mmol/L (98-107) L Carbon Dioxide Level 32 mmol/L (21-32) Anion Gap 9 (6-14) Blood Urea Nitrogen 17 mg/dL (7-20) Creatinine 0.7 mg/dL (0.6-1.0) Estimated GFR (Cockcroft-Gault) 78.8 BUN/Creatinine Ratio 24 (6-20) H Glucose Level 102 mg/dL (70-99) H Lactic Acid Level 1.0 mmol/L (0.4-2.0) Calcium Level 8.8 mg/dL (8.5-10.1) Total Bilirubin 0.3 mg/dL (0.2-1.0) Aspartate Amino Transferase (AST) 37 U/L (15-37) Alanine Aminotransferase (ALT) 22 U/L (14-59) Alkaline Phosphatase 110 U/L (46-116) Creatine Kinase 180 U/L (26-192) Creatine Kinase MB (Mass) 1.4 ng/mL (0.0-3.6) Creatine Kinase MB Relative Index 0.8 % (0-4) Troponin I High Sensitivity 39 ng/L (4-50) FA-Joq-F-Type Natriuretic Peptide 3276 pg/mL (0-449) H Total Protein 7.2 g/dL (6.4-8.2) Albumin 2.6 g/dL (3.4-5.0) L Albumin/Globulin Ratio 0.6 (1.0-1.7) L SARS-CoV-2 Antigen (Rapid) Negative (NEGATIVE) Glucose (Fingerstick) 94 mg/dL (70-99) O2 Saturation 94 % (92-99) Arterial Blood pH 7.47 (7.35-7.45) H Arterial Blood pCO2 at Patient Temp 50 mmHg (35-46) H Arterial Blood pO2 at Patient Temp 75 mmHg (65-108) Arterial Blood HCO3 36 mmol/L (21-28) H Arterial Blood Base Excess 11 mmol/L (-3-3) H FiO2 36 Test 01/05/21 05:25 01/05/21 08:32 White Blood Count 12.0 x10^3/uL (4.0-11.0) H Red Blood Count 3.76 x10^6/uL (3.50-5.40) Hemoglobin 9.3 g/dL (12.0-15.5) L Hematocrit 30.4 % (36.0-47.0) L Mean Corpuscular Volume 81 fL (79-100) Mean Corpuscular Hemoglobin 25 pg (25-35) Mean Corpuscular Hemoglobin Concent 31 g/dL (31-37) Red Cell Distribution Width 16.1 % (11.5-14.5) H Platelet Count 379 x10^3/uL (140-400) Neutrophils (%) (Auto) 93 % (31-73) H Lymphocytes (%) (Auto) 5 % (24-48) L Monocytes (%) (Auto) 2 % (0-9) Eosinophils (%) (Auto) 0 % (0-3) Basophils (%) (Auto) 0 % (0-3) Neutrophils # (Auto) 11.1 x10^3/uL (1.8-7.7) H Lymphocytes # (Auto) 0.6 x10^3/uL (1.0-4.8) L Monocytes # (Auto) 0.3 x10^3/uL (0.0-1.1) Eosinophils # (Auto) 0.0 x10^3/uL (0.0-0.7) Basophils # (Auto) 0.0 x10^3/uL (0.0-0.2) Sodium Level 134 mmol/L (136-145) L Potassium Level 4.3 mmol/L (3.5-5.1) # Chloride Level 89 mmol/L (98-107) L Carbon Dioxide Level 33 mmol/L (21-32) H Anion Gap 12 (6-14) Blood Urea Nitrogen 17 mg/dL (7-20) Creatinine 0.7 mg/dL (0.6-1.0) Estimated GFR (Cockcroft-Gault) 78.8 BUN/Creatinine Ratio 24 (6-20) H Glucose Level 118 mg/dL (70-99) H Calcium Level 8.9 mg/dL (8.5-10.1) Iron Level 19 ug/dL (50-170) L Total Iron Binding Capacity 219 ug/dL (250-450) L Iron Saturation 9 % (15-34) L Ferritin 166 ng/mL (8-252) Total Bilirubin 0.3 mg/dL (0.2-1.0) Aspartate Amino Transferase (AST) 32 U/L (15-37) Alanine Aminotransferase (ALT) 19 U/L (14-59) Alkaline Phosphatase 104 U/L (46-116) Total Protein 7.8 g/dL (6.4-8.2) Albumin 2.3 g/dL (3.4-5.0) L Albumin/Globulin Ratio 0.4 (1.0-1.7) L Amylase Level 26 U/L (25-115) Lipase 53 U/L (73-393) L Glucose (Fingerstick) 82 mg/dL (70-99) Laboratory Tests 01/04/21 10:10 01/05/21 05:25 Laboratory Tests 01/04/21 10:10 01/05/21 05:25 ECHOCARDIOGRAM ECHOCARDIOGRAM <Conclusion> The left ventricle is normal size. The left ventricular systolic function is normal and the ejection fraction is within normal range. LV ejection fraciion is 55-60%. There is mild to moderate concentric left ventricular hypertrophy. The aortic valve is calcified and displays decreased opening. There is moderate valvular aortic stenosis. Aortic valve peak gradient of 23 mmHg, mean gradient of 12 mmHg. Doppler and Color Flow revealed no significant aortic regurgitation. The mitral valve is calcified but opens well. Doppler and Color-flow revealed mild mitral regurgitation. Doppler and Color Flow revealed mild tricuspid regurgitation. Estimated PAP 40 mmHg. DATE: 06/11/20 [id number] STRESS TEST STRESS TEST Conclusion 1. Abnormal baseline EKG but no EKG evidence of stress-induced ischemia. 2. Nuclear imaging shows no reversible ischemia or infarct. 3. Intact LV systolic function with an ejection fraction of 70% but an elevated TID of 1.65. 4. Moderately low risk Lexiscan nuclear stress test. DATE: 07/10/20 [id number] HEART CATH HEART CATH FINDINGS 1. Hemodynamics: Left ventricular end-diastolic pressure of 6 mmHg. No pullback gradient across the aortic valve. 2. Coronary angiography: a. The left main coronary artery arose from the left sinus of Valsalva, gave rise to the left anterior descending and left circumflex arteries and did not show any significant stenosis. b. The left anterior descending artery did not show any significant stenosis. c. The left circumflex artery did not show any significant stenosis. d. The right coronary artery was a large and dominant vessel arising from the right sinus of Valsalva that showed 50-60% stenosis in the proximal segment that was physiologically insignificant based on FFR measurement. Conclusion Nonobstructive coronary artery disease involving right coronary artery, proved physiologically insignificant with IFR measurement. Recommendations Medical Therapy DATE: 01/22/19 1155 ASSESSMENT/PLAN ASSESSMENT/PLAN 1. Acute on chronic diastolic CHF: better 2. AECOPD 3. Hypertension; controlled 4. CAD; Moderate disease to RCA per [facility] in 2019. Recent MPI as above. 5. Diabetes, II. 6. Hyperlipidemia 7. PPM with SSS: Hwang. SR with chronic LBBB 8. Moderate 9. Hyperkalemia: better 10. Moderate Recommendations 1. TTE pending, further recommendation pending the latter 2. Continue to diurese 3. Continue secondary prevention measures. 4. Supportive care EMANUEL KELLEY APRN Jan 05, 2021 10:09
[2021-01-05 10:18] VITALS: BP 131/57
[2021-01-05] MEDS: BUDESONIDE 0.5 MG/2 ML NEBU. NEB SCH ×2 (11:15→21:02)
--- NOTE | 2021-01-05 11:24 | NUR ---
SS following for discharge planning. SS reviewed pt chart and discussed with pt RN. Pt is from home and is currently requiring oxygen at 3-4 liters nasal canula. COVID19 negative. Pt on IV Rocephin, IV Lasix, and IV Solu-Medrol. Pulmonology and Cardiology following. Pt has home oxygen. Pt has had previous services with [facility], ; fax [phone]. Pt has caregiver at home. Pt's son, DPOA, Esau Barr, , and caregiver, Krupa, are primary contacts. SS will continue to follow for discharge planning.
--- NOTE | 2021-01-05 13:56 | CARD ---
MR#: [id number] Date of Study: 01/05/2021 Ordering Physician: KARAN KIMBLE, Referring Physician: KARAN KIMBLE, Tech: Bisi Morrison [facility] APPROVED REPORT EXAM: Two-dimensional and M-mode echocardiogram with Doppler and color Doppler. Other Information Quality : Technically LimitedHR: 118bpm Rhythm : NSR INDICATION Chest Pain Congestive Heart Failure RISK FACTORS Hypertension Obesity Hyperlipidemia Diabetes 2D DIMENSIONS Left Atrium(2D)4.0 (1.6-4.0cm)IVSd1.2 (0.7-1.1cm) LVDd2.8 (3.9-5.9cm)LVOT Diameter2.1 (1.8-2.4cm) PWd1.2 (0.7-1.1cm)LVDs1.2 (2.5-4.0cm) FS (%) 56.1 %SV26.4 ml Aortic Valve AoV Peak Quique.201.7cm/Rick Peak GR.16.3mmHg Tricuspid Valve TR P. [id number] Peak Gr.53mmHg LEFT VENTRICLE Technically difficult study. The left ventricle is normal size. There is mild concentric left ventri cular hypertrophy. The left ventricular systolic function is normal and the ejection fraction is with in normal range. LV ejection fraction of 50-55%. There is normal LV segmental wall motion. Transmitra l Doppler flow pattern is Grade I-abnormal relaxation pattern. RIGHT VENTRICLE The right ventricle is normal size. There is normal right ventricular wall thickness. The right ventr icular systolic function is normal. ATRIA The left atrium size is normal. The right atrium size is normal. The interatrial septum is intact wit h no evidence for an atrial septal defect or patent foramen ovale as noted on 2-D or Doppler imaging. AORTIC VALVE The aortic valve is calcified and displays mildly decreased opening. Doppler and Color Flow revealed no significant aortic regurgitation. There is no significant aortic valvular stenosis. MITRAL VALVE The mitral valve is calcified but opens well. There is no evidence of mitral valve prolapse. There is no mitral valve stenosis. Doppler and Color-flow revealed mild mitral regurgitation. TRICUSPID VALVE The tricuspid valve is normal in structure and function. Doppler and Color Flow revealed trace tricus pid valve regurgitation. There is no tricuspid valve stenosis. PULMONIC VALVE The pulmonary valve is normal in structure and function. Doppler and Color Flow revealed no pulmonic valvular regurgitation. GREAT VESSELS The aortic root is normal in size. The ascending aorta is normal in size. Due to poor image quality, the IVC could not be assessed. PERICARDIAL EFFUSION There is no evidence of significant pericardial effusion. Critical Notification Critical Value: No <Conclusion> Technically difficult study. The left ventricle is normal size. The left ventricular systolic function is normal and the ejection fraction is within normal range. LV ejection fraction of 50-55%. There is mild concentric left ventricular hypertrophy. The aortic valve is calcified and displays mildly decreased opening. Doppler and Color Flow revealed no significant aortic regurgitation. There is no significant aortic valvular stenosis. Doppler and Color-flow revealed mild mitral regurgitation. Doppler and Color Flow revealed trace tricuspid valve regurgitation. Signed by : Monster Zhang MD Electronically Approved : 01/05/2021 13:55:11
[2021-01-05] MEDS: fentaNYL 25MCG/HR PATCH 1 PATCH PATCH.TD72 TD SCH (14:07)
[2021-01-05 14:25] VITALS: BP 150/72
--- NOTE | 2021-01-05 14:42 | RAD ---
CT CHEST_ABDOMEN_ AND PELVIS WITHOUT CONTRAST INDICATION: cough and leukocytosis . concern for pnuemonia COMPARISON: Chest radiograph 01/04/2021. CT chest 06/11/2020 TECHNIQUE: Multiple contiguous axial images were obtained throughout the chest, abdomen, and pelvis without the use of IV contrast. Axial images were reformatted into coronal and sagittal planes. One or more of th e following dose reduction techniques were utilized: Automated exposure control (AEC), Adjustment of mA and/or kV according to patient size, Use of iterative reconstruction technique such as ASiR, CT sc an done according to ALARA and image gently/image wisely. FINDINGS: The thyroid is symmetric. Mediastinal lymphadenopathy, for example enlarged AP window lymph node ricco uring 1.3 cm short axis (series 2 image 24). Evaluation of the madelaine is limited without IV contrast. C alcified mediastinal lymph nodes consistent with remote granulomatous disease. Atherosclerosis of the thoracic aorta and branch vessels. Cardiomegaly. Coronary artery atherosclerot ic disease. Mitral annular calcification. Aortic valve leaflet calcification. There is no pericardial effusion. Bilateral groundglass opacities. Right lower lobe consolidation. Small right pleural effusion. Evaluation of solid abdominal viscera is limited without the use of IV contrast. However, the liver, pancreas, and adrenal glands are unremarkable. Cholecystectomy. Calcified splenic granulomas. No hyd ronephrosis or opaque urinary calculi. There is no significant mesenteric or retroperitoneal adenopat hy identified, though evaluation is limited without intravenous contrast. There is no evidence of fr ee intraperitoneal fluid or pneumoperitoneum. Visualized portions of the bowel are grossly unremarka ble. Urinary bladder is decompressed by Gray catheter. There is no significant pelvic ascites. No signi ficant iliac or inguinal adenopathy is identified. Right convex lumbar curvature. Advanced degenerative changes of the spine. IMPRESSION: 1. Right lower lobe dense consolidation concerning for an infectious/inflammatory process. Additional bilateral groundglass opacities may represent additional sites of infection or edema. 2. Small right pleural effusion. 3. Mediastinal lymphadenopathy, which may be reactive. Electronically signed by: Manuel Strong MD (01/05/2021 2:40 PM) [facility]
--- NOTE | 2021-01-05 15:04 | CONS ---
DATE OF CONSULTATION: 01/05/2021 ATTENDING PHYSICIAN: Esau Castelan MD. REASON FOR CONSULTATION: The patient is seen in pulmonary consultation at the request of Dr. Castelan for increasing shortness of breath and abnormal chest x-ray. HISTORY OF PRESENT ILLNESS: The patient is an 89-year-old with a prior history of chronic heart failure, remote history of tobacco use as a teenager, presented with increasing shortness of breath, sometime last week, called Dr. Castelan's office, she was prescribed Zithromax, she did not improve. She went to the office the day of admission with increasing shortness of breath, more hypoxic. She normally wears 2 liters of oxygen at home. She was requiring 4 liters. She was admitted. She is coughing up some yellow sputum. No fever, no COVID-19 exposures. She has been vaccinated for COVID-19. She had a chest x-ray, which I personally reviewed, revealing bilateral pulmonary infiltrates compatible with pulmonary edema. Normally, the patient states that she takes Lasix every other day. She denies any paroxysmal nocturnal dyspnea or increasing pedal edema. PAST MEDICAL HISTORY: Otherwise remarkable for chronic heart failure; hypertension; hyperlipidemia; coronary artery disease; sick sinus syndrome; history of pneumonia; tobacco dependence, in remission, she had a remote history of using tobacco as a teenager; peripheral neuropathy; depression; osteoarthritis; fibromyalgia; diabetes. PAST SURGICAL HISTORY: Status post appendectomy, cholecystectomy, total hip replacement, hysterectomy. FAMILY HISTORY: Noncontributory in this age group. SOCIAL HISTORY: She is currently not smoking. She has not walked in over 3 years. She has a 24-hour caregiver. REVIEW OF SYSTEMS: As indicated above, otherwise other systems were reviewed and negative. CURRENT MEDICATIONS: List was reviewed. The patient is currently receiving IV ceftriaxone. She has received Lasix and other home medications. In addition, she is on Solu-Medrol. ALLERGIES: CONTRAST MEDIA. PHYSICAL EXAMINATION: GENERAL: The patient appeared younger than stated age. VITAL SIGNS: Stable, currently on 4 liters of oxygen supplementation, saturation greater than 92%. HEENT: Eyes: The sclerae were nonicteric. NECK: Jugular venous distention was not elevated. No lymphadenopathy. CHEST: Full expansion. LUNGS: Bilateral crackles with no wheezes. CARDIOVASCULAR: Regular rate and rhythm with S1, S2, no S3. ABDOMEN: Soft. EXTREMITIES: No pitting edema. NEUROLOGIC: The patient was weak, but able to move both upper and lower extremities. No focal deficits were noted. LABORATORY DATA: Serology for influenza was negative. BUN was 17, creatinine was 0.7, sodium was low, albumin was low. Arterial blood gas initially, pH of 7.47, PaCO2 of 50, pO2 of 75. White count was elevated. Chest x-ray as indicated above. IMPRESSION: 1. Acute on chronic respiratory failure, multifactorial. 2. Acute on chronic heart failure, diastolic. 3. Secondary pulmonary hypertension, pulmonary artery pressure measured at 40 mmHg. 4. 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 5. Acute exacerbation of chronic obstructive pulmonary disease. 6. Possible pneumonia. DISCUSSION: Suspect most of the patient's symptoms related to pulmonary edema, my clinical suspicion for pneumonia is low, with that being said, we will continue empiric antibiotics and treatment for COPD exacerbation. Continue diuresis. Follow Cardiology input. Monitor blood sugars. Monitor BUN and creatinine. I do appreciate the privilege in sharing in the patient's care. ANDREAS DR: Addi TID: [id number]
--- NOTE | 2021-01-05 15:23 | NUR ---
Wound Care Wound Type/Assessment: patient seen per wound care consult. see wound assessment. patient has a stage 2 pressure ulcer to the sacrum, an eschar covered skin tear to the left thigh and a scabbed area to the left ankle. Patient has a callous to the left heel. Treatment Recommendations/Plan: Recommendations Sacrum- Cleanse the wound then apply Xeroform gauze with a foam dressing, change every 2-3 days Left thigh-Cleanse the wound then apply a foam dressing, change every 4-5 days left ankle- cleanse the wound then apply a foam dressing, change every 4-5 days Left heel- callous- cleanse the area then apply a foam dressing, change every 4-5 days Education provided: pressure prevention Offloading surface/device: Turning every 2 hours, patient turned to the right side at this time Recommended Referrals/Tests: Discharge Recommendations for dressings: see recommendations. wound care will f/u on 01/13/2021
[2021-01-05] MEDS: cefTRIAXone IV Push 1 GM VIAL. IVP SCH (18:27)
[2021-01-05 19:35] VITALS: BP 130/76
[2021-01-05] MEDS: ZOLPIDEM 5 MG TABLET. PO PRN (20:43)
[2021-01-05] MEDS: PATCH REMOVAL. MC SCH (20:45)
[2021-01-05 23:00] VITALS: BP 136/66
[2021-01-05 23:57] LABS: INFLUENZA A PATIENT NEGATIVE (NEGATIVE); INFLUENZA B PATIENT NEGATIVE (NEGATIVE)
[2021-01-06 02:50] VITALS: BP 134/66
[2021-01-06 07:00] VITALS: BP 111/58
[2021-01-06] MEDS: IPRATRPIUM/ALBUTEROL 0.5/2.5MG 3 ML NEBU. NEB SCH ×4 (07:11→20:41)
[2021-01-06] MEDS: BUDESONIDE 0.5 MG/2 ML NEBU. NEB SCH ×2 (07:11→20:41)
[2021-01-06 07:30] LABS: BASO % 0 % (0-3); EOS % 0 % (0-3); HEMATOCRIT 34.1 % (36.0-47.0); HEMOGLOBIN 10.3 g/dL (12.0-15.5); LYMPH % 8 % (24-48); MEAN CORPUSCULAR HEMOGLOBIN 25 pg (25-35); MEAN CORPUSCULAR HGB CONC 30 g/dL (31-37); MEAN CORPUSCULAR VOLUME 81 fL (79-100); MONO # 0.7 x10^3/uL (0.0-1.1); MONO % 6 % (0-9); NEUT % 87 % (31-73); PLATELET COUNT 491 x10^3/uL (140-400); RED CELL DISTRIBUTION WIDTH 15.9 % (11.5-14.5); WHITE BLOOD COUNT 12.7 x10^3/uL (4.0-11.0)
[2021-01-06] MEDS: INSULIN LISPRO 300 UNITS/3 ML VIAL. SQ SCH ×3 (08:00→17:00)
[2021-01-06 08:04] LABS: CALCIUM 9.1 mg/dL (8.5-10.1); GFR 52.2; POTASSIUM 4.1 mmol/L (3.5-5.1)
--- NOTE | 2021-01-06 08:17 | PDOC ---
PULMONARY PROGRESS NOTES DATE: 01/06/21 TIME: 08:17 Subjective Patient feels better, less short of air, no chest pain no pressure Vitals Vital Signs Date Time Temp Pulse Resp B/P (MAP) Pulse Ox O2 Delivery O2 Flow Rate FiO2 01/06/21 07:12 91 Nasal Cannula 3.0 01/06/21 02:50 98.9 93 22 134/66 (88) 98.9 ROS: No Nausea, No Chest Pain, No Abdominal Pain, No Increase Cough General: Alert Lungs: Clear Cardiovascular: S1, S2 Abdomen: Soft Neuro Exam: Alert Extremities: No Edema Skin: Warm (All nothing recently showedFor further dayMedication oral antibiotic due to upset or having any challenges just except what they sayInfected were done just this Gotto just got off the phoneHis girlfriend is) Labs Laboratory Tests Test 01/04/21 10:10 01/04/21 11:20 01/04/21 21:01 01/04/21 21:50 White Blood Count 15.0 x10^3/uL (4.0-11.0) Red Blood Count 3.67 x10^6/uL (3.50-5.40) Hemoglobin 9.1 g/dL (12.0-15.5) Hematocrit 30.2 % (36.0-47.0) Mean Corpuscular Volume 82 fL (79-100) Mean Corpuscular Hemoglobin 25 pg (25-35) Mean Corpuscular Hemoglobin Concent 30 g/dL (31-37) Red Cell Distribution Width 16.2 % (11.5-14.5) Platelet Count 332 x10^3/uL (140-400) Neutrophils (%) (Auto) 90 % (31-73) Lymphocytes (%) (Auto) 5 % (24-48) Monocytes (%) (Auto) 4 % (0-9) Eosinophils (%) (Auto) 1 % (0-3) Basophils (%) (Auto) 0 % (0-3) Neutrophils # (Auto) 13.5 x10^3/uL (1.8-7.7) Lymphocytes # (Auto) 0.7 x10^3/uL (1.0-4.8) Monocytes # (Auto) 0.6 x10^3/uL (0.0-1.1) Eosinophils # (Auto) 0.1 x10^3/uL (0.0-0.7) Basophils # (Auto) 0.0 x10^3/uL (0.0-0.2) Segmented Neutrophils % 90 % (35-66) Lymphocytes % 3 % (24-48) Monocytes % 6 % (0-10) Eosinophils % 1 % (0-5) Platelet Estimate Adequate (ADEQUATE) Hypochromasia Present Sodium Level 134 mmol/L (136-145) Potassium Level 5.6 mmol/L (3.5-5.1) Chloride Level 93 mmol/L (98-107) Carbon Dioxide Level 32 mmol/L (21-32) Anion Gap 9 (6-14) Blood Urea Nitrogen 17 mg/dL (7-20) Creatinine 0.7 mg/dL (0.6-1.0) Estimated GFR (Cockcroft-Gault) 78.8 BUN/Creatinine Ratio 24 (6-20) Glucose Level 102 mg/dL (70-99) Lactic Acid Level 1.0 mmol/L (0.4-2.0) Calcium Level 8.8 mg/dL (8.5-10.1) Total Bilirubin 0.3 mg/dL (0.2-1.0) Aspartate Amino Transf (AST/SGOT) 37 U/L (15-37) Alanine Aminotransferase (ALT/SGPT) 22 U/L (14-59) Alkaline Phosphatase 110 U/L (46-116) Creatine Kinase 180 U/L (26-192) Creatine Kinase MB (Mass) 1.4 ng/mL (0.0-3.6) Creatine Kinase MB Relative Index 0.8 % (0-4) Troponin I High Sensitivity 39 ng/L (4-50) TC-Zgb-E-Type Natriuretic Peptide 3276 pg/mL (0-449) Total Protein 7.2 g/dL (6.4-8.2) Albumin 2.6 g/dL (3.4-5.0) Albumin/Globulin Ratio 0.6 (1.0-1.7) SARS-CoV-2 RNA (MAXWELL) Negative (Negative) SARS-CoV-2 Antigen (Rapid) Negative (NEGATIVE) Glucose (Fingerstick) 94 mg/dL (70-99) O2 Saturation 94 % (92-99) Arterial Blood pH 7.47 (7.35-7.45) Arterial Blood pCO2 at Patient Temp 50 mmHg (35-46) Arterial Blood pO2 at Patient Temp 75 mmHg (65-108) Arterial Blood HCO3 36 mmol/L (21-28) Arterial Blood Base Excess 11 mmol/L (-3-3) FiO2 36 Test 01/05/21 05:25 01/05/21 08:32 01/05/21 11:27 01/05/21 16:32 White Blood Count 12.0 x10^3/uL (4.0-11.0) Red Blood Count 3.76 x10^6/uL (3.50-5.40) Hemoglobin 9.3 g/dL (12.0-15.5) Hematocrit 30.4 % (36.0-47.0) Mean Corpuscular Volume 81 fL (79-100) Mean Corpuscular Hemoglobin 25 pg (25-35) Mean Corpuscular Hemoglobin Concent 31 g/dL (31-37) Red Cell Distribution Width 16.1 % (11.5-14.5) Platelet Count 379 x10^3/uL (140-400) Neutrophils (%) (Auto) 93 % (31-73) Lymphocytes (%) (Auto) 5 % (24-48) Monocytes (%) (Auto) 2 % (0-9) Eosinophils (%) (Auto) 0 % (0-3) Basophils (%) (Auto) 0 % (0-3) Neutrophils # (Auto) 11.1 x10^3/uL (1.8-7.7) Lymphocytes # (Auto) 0.6 x10^3/uL (1.0-4.8) Monocytes # (Auto) 0.3 x10^3/uL (0.0-1.1) Eosinophils # (Auto) 0.0 x10^3/uL (0.0-0.7) Basophils # (Auto) 0.0 x10^3/uL (0.0-0.2) Sodium Level 134 mmol/L (136-145) Potassium Level 4.3 mmol/L (3.5-5.1) Chloride Level 89 mmol/L (98-107) Carbon Dioxide Level 33 mmol/L (21-32) Anion Gap 12 (6-14) Blood Urea Nitrogen 17 mg/dL (7-20) Creatinine 0.7 mg/dL (0.6-1.0) Estimated GFR (Cockcroft-Gault) 78.8 BUN/Creatinine Ratio 24 (6-20) Glucose Level 118 mg/dL (70-99) Calcium Level 8.9 mg/dL (8.5-10.1) Iron Level 19 ug/dL (50-170) Total Iron Binding Capacity 219 ug/dL (250-450) Iron Saturation 9 % (15-34) Ferritin 166 ng/mL (8-252) Total Bilirubin 0.3 mg/dL (0.2-1.0) Aspartate Amino Transf (AST/SGOT) 32 U/L (15-37) Alanine Aminotransferase (ALT/SGPT) 19 U/L (14-59) Alkaline Phosphatase 104 U/L (46-116) Total Protein 7.8 g/dL (6.4-8.2) Albumin 2.3 g/dL (3.4-5.0) Albumin/Globulin Ratio 0.4 (1.0-1.7) Amylase Level 26 U/L (25-115) Lipase 53 U/L (73-393) Glucose (Fingerstick) 82 mg/dL (70-99) 115 mg/dL (70-99) 110 mg/dL (70-99) Test 01/05/21 20:35 01/05/21 23:33 01/06/21 05:50 01/06/21 07:57 Glucose (Fingerstick) 96 mg/dL (70-99) 90 mg/dL (70-99) Influenza Type A Antigen Negative (NEGATIVE) Influenza Type B Antigen Negative (NEGATIVE) White Blood Count 12.7 x10^3/uL (4.0-11.0) Red Blood Count 4.20 x10^6/uL (3.50-5.40) Hemoglobin 10.3 g/dL (12.0-15.5) Hematocrit 34.1 % (36.0-47.0) Mean Corpuscular Volume 81 fL (79-100) Mean Corpuscular Hemoglobin 25 pg (25-35) Mean Corpuscular Hemoglobin Concent 30 g/dL (31-37) Red Cell Distribution Width 15.9 % (11.5-14.5) Platelet Count 491 x10^3/uL (140-400) Neutrophils (%) (Auto) 87 % (31-73) Lymphocytes (%) (Auto) 8 % (24-48) Monocytes (%) (Auto) 6 % (0-9) Eosinophils (%) (Auto) 0 % (0-3) Basophils (%) (Auto) 0 % (0-3) Neutrophils # (Auto) 11.0 x10^3/uL (1.8-7.7) Lymphocytes # (Auto) 1.0 x10^3/uL (1.0-4.8) Monocytes # (Auto) 0.7 x10^3/uL (0.0-1.1) Eosinophils # (Auto) 0.0 x10^3/uL (0.0-0.7) Basophils # (Auto) 0.0 x10^3/uL (0.0-0.2) Sodium Level 132 mmol/L (136-145) Potassium Level 4.1 mmol/L (3.5-5.1) Chloride Level 87 mmol/L (98-107) Carbon Dioxide Level 36 mmol/L (21-32) Anion Gap 9 (6-14) Blood Urea Nitrogen 33 mg/dL (7-20) Creatinine 1.0 mg/dL (0.6-1.0) Estimated GFR (Cockcroft-Gault) 52.2 Glucose Level 103 mg/dL (70-99) Calcium Level 9.1 mg/dL (8.5-10.1) Laboratory Tests Test 01/05/21 08:32 01/05/21 11:27 01/05/21 16:32 01/05/21 20:35 Glucose (Fingerstick) 82 mg/dL (70-99) 115 mg/dL (70-99) 110 mg/dL (70-99) 96 mg/dL (70-99) Test 01/05/21 23:33 01/06/21 05:50 01/06/21 07:57 Influenza Type A Antigen Negative (NEGATIVE) Influenza Type B Antigen Negative (NEGATIVE) White Blood Count 12.7 x10^3/uL (4.0-11.0) Red Blood Count 4.20 x10^6/uL (3.50-5.40) Hemoglobin 10.3 g/dL (12.0-15.5) Hematocrit 34.1 % (36.0-47.0) Mean Corpuscular Volume 81 fL (79-100) Mean Corpuscular Hemoglobin 25 pg (25-35) Mean Corpuscular Hemoglobin Concent 30 g/dL (31-37) Red Cell Distribution Width 15.9 % (11.5-14.5) Platelet Count 491 x10^3/uL (140-400) Neutrophils (%) (Auto) 87 % (31-73) Lymphocytes (%) (Auto) 8 % (24-48) Monocytes (%) (Auto) 6 % (0-9) Eosinophils (%) (Auto) 0 % (0-3) Basophils (%) (Auto) 0 % (0-3) Neutrophils # (Auto) 11.0 x10^3/uL (1.8-7.7) Lymphocytes # (Auto) 1.0 x10^3/uL (1.0-4.8) Monocytes # (Auto) 0.7 x10^3/uL (0.0-1.1) Eosinophils # (Auto) 0.0 x10^3/uL (0.0-0.7) Basophils # (Auto) 0.0 x10^3/uL (0.0-0.2) Sodium Level 132 mmol/L (136-145) Potassium Level 4.1 mmol/L (3.5-5.1) Chloride Level 87 mmol/L (98-107) Carbon Dioxide Level 36 mmol/L (21-32) Anion Gap 9 (6-14) Blood Urea Nitrogen 33 mg/dL (7-20) Creatinine 1.0 mg/dL (0.6-1.0) Estimated GFR (Cockcroft-Gault) 52.2 Glucose Level 103 mg/dL (70-99) Calcium Level 9.1 mg/dL (8.5-10.1) Glucose (Fingerstick) 90 mg/dL (70-99) Medications Active Scripts Medications Dose Route/Sig Max Daily Dose Days Date Category Dose Instructions Klor-Con M20 (Potassium Chloride) 20 Meq Tab.er.prt 1 Tab PO DAILY 30 06/12/20 Rx Prednisone (Prednisone) 10 Mg Tablet 20 Mg PO DAILY 06/12/20 Rx Bumetanide 1 Mg Tablet 1 Mg PO DAILY 06/12/20 Rx Metoprolol Succinate ( Xl ) (Metoprolol Succinate) 25 Mg Tab.er.24h 25 Mg PO DAILY 06/12/20 Rx Sertraline Hcl 100 Mg Tablet 100 Mg PO DAILY 06/10/20 Reported Miralax (Polyethylene Glycol 3350) 17 Gm Powd.pack 1 Packet PO DAILY PRN 2 06/10/20 Reported dissolve in water Nystatin 1 Each Powder.ea. 1 Each MC BID 06/10/20 Reported Melatonin 5 Mg Tab.rapdis 1 Tab PO QHS 30 06/10/20 Reported Lidocaine PATCH (Lidocaine) 1 Each Adh..patch 1 Each TP DAILY 06/10/20 Reported REMOVE AFTER 12 HOURS Cymbalta (Duloxetine Hcl) 60 Mg Capsule.dr 1 Cap PO DAILY 06/10/20 Reported Colace (Docusate Sodium) 100 Mg Capsule 1 Cap PO BID 30 06/10/20 Reported Albuterol Sulfate Neb Soln (Albuterol Sulfate) 2.5 Mg/3 Ml Vial.neb 1 Vial NEB PRN Q4HRS 06/10/20 Reported Advair 250-50 Diskus (Fluticasone/Salmeterol) 1 Each Disk.w.dev 1 Puff IH BID 06/10/20 Reported Aspirin 81 Mg Tab.chew 81 Mg PO DAILY 07/15/19 Rx Ropinirole Hcl 1 Mg Tablet 1 Mg PO TID 07/15/19 Rx Alprazolam 0.5 Mg Tablet 0.5 Mg PO BID 07/15/19 Rx FENTANYL 12mcg/hr (Fentanyl) 1 Each Patch.td72 1 Patch TP Q3DAYS 01/23/19 Rx Lyrica (Pregabalin) 50 Mg Capsule 1 Cap PO BID 01/23/19 Rx Pantoprazole Sodium (Pantoprazole Sodium) 40 Mg Tablet.dr 40 Mg PO DAILY 01/13/19 Rx Hydrocodone-Apap 5-325 (Hydrocodone Bit/Acetaminophen) 1 Tab Tablet 1 Tab PO PRN Q8HRS PRN 01/13/19 Rx Vitamin D (Cholecalciferol (Vitamin D3)) 1,000 Unit Capsule 1 Cap PO DAILY 06/24/17 Reported Impression . IMPRESSION: 1. Acute on chronic respiratory failure, multifactorial. 2. Acute on chronic heart failure, diastolic. 3. Secondary pulmonary hypertension, pulmonary artery pressure measured at 40 mmHg. 4. 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 5. Acute exacerbation of chronic obstructive pulmonary disease. 6. Possible pneumonia. Plan . Updated 01/06 Patient improving Continue diuresis Follow cardiology input Oxygen supplementation DISCUSSION: Suspect most of the patient's symptoms related to pulmonary edema, my clinical suspicion for pneumonia is low, with that being said, we will continue empiric antibiotics and treatment for COPD exacerbation. Continue diuresis. Follow Cardiology input. Monitor blood sugars. Monitor BUN and creatinine. I do appreciate the privilege in sharing in the patient's care. MEDINA PAYNE MD Jan 06, 2021 08:17
[2021-01-06] MEDS: POLYETHYLENE GLYCOL 3350 17 GM PACKET. PO PRN (08:59)
[2021-01-06] MEDS: LIDOCAINE (700MG/PATCH) PATCH. TP SCH (09:02)
[2021-01-06] MEDS: ALPRAZolam 0.5 MG TABLET PO SCH ×2 (09:02→21:11)
[2021-01-06] MEDS: HYDROXYCHLOROQUINE 200 MG TABLET PO SCH ×2 (09:03→21:11)
[2021-01-06] MEDS: DULoxetine HCL 30 MG CAPSULE.DR PO SCH (09:04)
[2021-01-06] MEDS: PREGABALIN 50 MG CAPSULE PO SCH ×2 (09:04→21:12)
[2021-01-06] MEDS: DOCUSATE SODIUM 100 MG CAPSULE. PO SCH ×2 (09:04→21:11)
[2021-01-06] MEDS: CHOLECALCIFEROL (VITAMIN D3) 1,000 UNIT TABLET PO SCH (09:05)
[2021-01-06] MEDS: rOPINIRole 1 MG TABLET. PO SCH ×3 (09:05→21:11)
[2021-01-06] MEDS: PANTOPRAZOLE 40 MG TABLET.DR. PO SCH (09:06)
[2021-01-06] MEDS: FUROSEMIDE 40 MG/4 ML VIAL. IVP SCH (09:06)
[2021-01-06] MEDS: METOPROLOL SUCC 24HR ER 50 MG TAB.ER.24H. PO SCH (09:06)
[2021-01-06] MEDS: SERTRALINE 50 MG TABLET. PO SCH (09:07)
[2021-01-06] MEDS: NYSTATIN TOPICAL POWDER 15GM BOTTLE. TP SCH ×2 (09:07→21:00)
[2021-01-06] MEDS: methylPREDNISolone SOD SUCC PF 40 MG/ML VIAL. IV SCH ×2 (09:07→21:13)
[2021-01-06] MEDS: ASPIRIN CHEWABLE 81 MG TABLET. PO SCH (09:07)
[2021-01-06] MEDS: HEPARIN for SUB-Q USE 5,000 UNIT/ML VIAL. SQ SCH ×2 (09:13→21:12)
--- NOTE | 2021-01-06 10:18 | NUR ---
SS following up with discharge planning. SS reviewed pt chart and discussed with pt RN. Pt is currently requiring oxygen at three liters nasal canula. COVID19 negative. Pt has home oxygen. Pt on IV Solu-Medrol, IV Rocephin, and IV Lasix. [phone] Pt lives at home with caregiver. SS will continue to follow for discharge planning.
[2021-01-06 11:00] VITALS: BP 127/60
--- NOTE | 2021-01-06 11:26 | PDOC ---
CHRIS URBANO BI DEVELOPER 01/06/21 1126: CARDIO Progress Notes Date and Time Date of Service 01/06/21 Time of Evaluation 1120 Subjective Subjective: No Chest Pain, No Palpitations, No Dizziness, Other (SOA improved ) Vitals Vitals Vital Signs Date Time Temp Pulse Resp B/P (MAP) Pulse Ox O2 Delivery O2 Flow Rate FiO2 01/06/21 09:06 98 111/58 01/06/21 08:00 Nasal Cannula 3.0 01/06/21 07:12 91 01/06/21 07:00 98.6 22 98.6 Weight Weight [ ] Input and Output Intake and Output Intake and Output 01/06/21 06:59 Intake Total 910 ml Output Total 750 ml Balance 160 ml Intake Oral 910 ml Output Urine Total 750 ml # Voids 1 # Bowel Movements 1 Laboratory Labs Laboratory Tests Test 01/05/21 11:27 01/05/21 16:32 01/05/21 20:35 01/05/21 23:33 Glucose (Fingerstick) 115 mg/dL (70-99) 110 mg/dL (70-99) 96 mg/dL (70-99) Influenza Type A Antigen Negative (NEGATIVE) Influenza Type B Antigen Negative (NEGATIVE) Test 01/06/21 05:50 01/06/21 07:57 White Blood Count 12.7 x10^3/uL (4.0-11.0) Red Blood Count 4.20 x10^6/uL (3.50-5.40) Hemoglobin 10.3 g/dL (12.0-15.5) Hematocrit 34.1 % (36.0-47.0) Mean Corpuscular Volume 81 fL (79-100) Mean Corpuscular Hemoglobin 25 pg (25-35) Mean Corpuscular Hemoglobin Concent 30 g/dL (31-37) Red Cell Distribution Width 15.9 % (11.5-14.5) Platelet Count 491 x10^3/uL (140-400) Neutrophils (%) (Auto) 87 % (31-73) Lymphocytes (%) (Auto) 8 % (24-48) Monocytes (%) (Auto) 6 % (0-9) Eosinophils (%) (Auto) 0 % (0-3) Basophils (%) (Auto) 0 % (0-3) Neutrophils # (Auto) 11.0 x10^3/uL (1.8-7.7) Lymphocytes # (Auto) 1.0 x10^3/uL (1.0-4.8) Monocytes # (Auto) 0.7 x10^3/uL (0.0-1.1) Eosinophils # (Auto) 0.0 x10^3/uL (0.0-0.7) Basophils # (Auto) 0.0 x10^3/uL (0.0-0.2) Sodium Level 132 mmol/L (136-145) Potassium Level 4.1 mmol/L (3.5-5.1) Chloride Level 87 mmol/L (98-107) Carbon Dioxide Level 36 mmol/L (21-32) Anion Gap 9 (6-14) Blood Urea Nitrogen 33 mg/dL (7-20) Creatinine 1.0 mg/dL (0.6-1.0) Estimated GFR (Cockcroft-Gault) 52.2 Glucose Level 103 mg/dL (70-99) Calcium Level 9.1 mg/dL (8.5-10.1) Glucose (Fingerstick) 90 mg/dL (70-99) Microbiology Micro Microbiology 01/04/21 Blood Culture - Preliminary, Resulted NO GROWTH AFTER 1 DAY Physical Exam HEENT: Neck Supple W Full Motion Chest: Symmetric LUNGS: Other (diminished bases) Heart: RRR Abdomen: Soft N/T Extremities: No Edema Neurology: alert, oriented, follow commands Assessment Assessment 1. Acute on chronic diastolic CHF: improved s/p IV diuresis. Echo with preserved LV systolic function 2. AECOPD 3. Hypertension; controlled 4. CAD; Moderate disease to RCA per [facility] in 2019. Recent MPI with reversible ischemia or infarct. 5. Diabetes, II. 6. Hyperlipidemia 7. PPM with SSS: Hwang. SR with chronic LBBB 8. Moderate 9. Hyperkalemia: resolved Recommendations Continue oral diuretic therapy Secondary preventions Ongoing lung optimization Supportive care Justicifation of Admission Dx: Justifications for Admission: Justification of Admission Dx: Yes CECILIA NIXON MD 01/06/21 1427: CARDIO Progress Notes Assessment Assessment Patient seen and examined. The patient is looking and feeling better today. I agree with our nurse practitioners assessment and plan. Acute on chronic diastolic CHF: improved s/p IV diuresis. Echo with preserved LV systolic function. Converting to oral diuretics. AECOPD Hypertension; controlled CAD; Moderate disease to RCA per [facility] in 2019. Recent MPI with reversible ischemia or infarct. Diabetes, II. Hyperlipidemia PPM with SSS: Hwang. SR with chronic LBBB Moderate Hyperkalemia: resolved CHRIS URBANO APRN Jan 06, 2021 11:26 CECILIA NIXON MD Jan 06, 2021 18:37
[2021-01-06 15:00] VITALS: BP 116/58
--- NOTE | 2021-01-06 16:21 | PDOC ---
PROGRESS NOTES Date of Service DATE: 01/06/21 TIME: 16:15 Subjective Subjective seen earlier today. feels better. not short of breath. ct chest and abdomen and pelvis showed RLL lung consolidation and small right pleural effusion . echo with preserved LVEF. lab reviewed. Objective Objective Vital Signs Date Time Temp Pulse Resp B/P (MAP) Pulse Ox O2 Delivery O2 Flow Rate FiO2 01/06/21 15:34 97 Nasal Cannula 3.0 01/06/21 11:00 99.3 93 22 127/60 (82) 99.3 Intake and Output 01/06/21 07:00 Intake Total 910 ml Output Total 750 ml Balance 160 ml Intake Oral 910 ml Output Urine Total 750 ml # Voids 1 # Bowel Movements 1 Physical Exam Abdomen: Soft Heart: Regular rate, Normal S1, Normal S2 Extremities: No edema General: Alert HEENT: Atraumatic Lungs: Other (lung crackles right lung base) Neuro: Normal speech Psych/Mental Status: Mood NL Skin: No rashes Assessment Assessment Problems1. Acute on chronic diastolic congestive heart failure. 2. Leukocytosis. better 3. Acute bronchitis, possible RLL pneumonia. 4. Chronic obstructive pulmonary disease. with acute exacerbation 5. Acute on chronic hypoxic respiratory failure. 6. Diabetes mellitus type 2, treated with diet. 7. Hypertension. 8. Hyperlipidemia. 9. Hyperkalemia.resolved 10. Anemia of chronic disease 11. Severe protein-calorie malnutrition. 12. no aortic stenosis on recent echo 13. Restless leg syndrome. 14. Debility. epigastric and RUQ abdominal pain Medical Problems: (1) Pressure ulcer of coccygeal region Status: Acute (2) Pulmonary edema Status: Acute (3) Shortness of breath Status: Acute Plan Plan of Care consult ID continue rocephin continue nebulizer rx and solumedrol d/c iv lasix start bumex oral Comment Review of Relevant I have reviewed the following items lizbeth (where applicable) has been applied. Labs Laboratory Tests Test 01/04/21 21:01 01/04/21 21:50 01/05/21 05:25 01/05/21 08:32 Glucose (Fingerstick) 94 mg/dL (70-99) 82 mg/dL (70-99) O2 Saturation 94 % (92-99) Arterial Blood pH 7.47 (7.35-7.45) Arterial Blood pCO2 at Patient Temp 50 mmHg (35-46) Arterial Blood pO2 at Patient Temp 75 mmHg (65-108) Arterial Blood HCO3 36 mmol/L (21-28) Arterial Blood Base Excess 11 mmol/L (-3-3) FiO2 36 White Blood Count 12.0 x10^3/uL (4.0-11.0) Red Blood Count 3.76 x10^6/uL (3.50-5.40) Hemoglobin 9.3 g/dL (12.0-15.5) Hematocrit 30.4 % (36.0-47.0) Mean Corpuscular Volume 81 fL (79-100) Mean Corpuscular Hemoglobin 25 pg (25-35) Mean Corpuscular Hemoglobin Concent 31 g/dL (31-37) Red Cell Distribution Width 16.1 % (11.5-14.5) Platelet Count 379 x10^3/uL (140-400) Neutrophils (%) (Auto) 93 % (31-73) Lymphocytes (%) (Auto) 5 % (24-48) Monocytes (%) (Auto) 2 % (0-9) Eosinophils (%) (Auto) 0 % (0-3) Basophils (%) (Auto) 0 % (0-3) Neutrophils # (Auto) 11.1 x10^3/uL (1.8-7.7) Lymphocytes # (Auto) 0.6 x10^3/uL (1.0-4.8) Monocytes # (Auto) 0.3 x10^3/uL (0.0-1.1) Eosinophils # (Auto) 0.0 x10^3/uL (0.0-0.7) Basophils # (Auto) 0.0 x10^3/uL (0.0-0.2) Sodium Level 134 mmol/L (136-145) Potassium Level 4.3 mmol/L (3.5-5.1) Chloride Level 89 mmol/L (98-107) Carbon Dioxide Level 33 mmol/L (21-32) Anion Gap 12 (6-14) Blood Urea Nitrogen 17 mg/dL (7-20) Creatinine 0.7 mg/dL (0.6-1.0) Estimated GFR (Cockcroft-Gault) 78.8 BUN/Creatinine Ratio 24 (6-20) Glucose Level 118 mg/dL (70-99) Calcium Level 8.9 mg/dL (8.5-10.1) Iron Level 19 ug/dL (50-170) Total Iron Binding Capacity 219 ug/dL (250-450) Iron Saturation 9 % (15-34) Ferritin 166 ng/mL (8-252) Total Bilirubin 0.3 mg/dL (0.2-1.0) Aspartate Amino Transf (AST/SGOT) 32 U/L (15-37) Alanine Aminotransferase (ALT/SGPT) 19 U/L (14-59) Alkaline Phosphatase 104 U/L (46-116) Total Protein 7.8 g/dL (6.4-8.2) Albumin 2.3 g/dL (3.4-5.0) Albumin/Globulin Ratio 0.4 (1.0-1.7) Amylase Level 26 U/L (25-115) Lipase 53 U/L (73-393) Test 01/05/21 11:27 01/05/21 16:32 01/05/21 20:35 01/05/21 23:33 Glucose (Fingerstick) 115 mg/dL (70-99) 110 mg/dL (70-99) 96 mg/dL (70-99) Influenza Type A Antigen Negative (NEGATIVE) Influenza Type B Antigen Negative (NEGATIVE) Test 01/06/21 05:50 01/06/21 07:57 01/06/21 11:53 White Blood Count 12.7 x10^3/uL (4.0-11.0) Red Blood Count 4.20 x10^6/uL (3.50-5.40) Hemoglobin 10.3 g/dL (12.0-15.5) Hematocrit 34.1 % (36.0-47.0) Mean Corpuscular Volume 81 fL (79-100) Mean Corpuscular Hemoglobin 25 pg (25-35) Mean Corpuscular Hemoglobin Concent 30 g/dL (31-37) Red Cell Distribution Width 15.9 % (11.5-14.5) Platelet Count 491 x10^3/uL (140-400) Neutrophils (%) (Auto) 87 % (31-73) Lymphocytes (%) (Auto) 8 % (24-48) Monocytes (%) (Auto) 6 % (0-9) Eosinophils (%) (Auto) 0 % (0-3) Basophils (%) (Auto) 0 % (0-3) Neutrophils # (Auto) 11.0 x10^3/uL (1.8-7.7) Lymphocytes # (Auto) 1.0 x10^3/uL (1.0-4.8) Monocytes # (Auto) 0.7 x10^3/uL (0.0-1.1) Eosinophils # (Auto) 0.0 x10^3/uL (0.0-0.7) Basophils # (Auto) 0.0 x10^3/uL (0.0-0.2) Sodium Level 132 mmol/L (136-145) Potassium Level 4.1 mmol/L (3.5-5.1) Chloride Level 87 mmol/L (98-107) Carbon Dioxide Level 36 mmol/L (21-32) Anion Gap 9 (6-14) Blood Urea Nitrogen 33 mg/dL (7-20) Creatinine 1.0 mg/dL (0.6-1.0) Estimated GFR (Cockcroft-Gault) 52.2 Glucose Level 103 mg/dL (70-99) Calcium Level 9.1 mg/dL (8.5-10.1) Glucose (Fingerstick) 90 mg/dL (70-99) 135 mg/dL (70-99) Laboratory Tests Test 01/05/21 16:32 01/05/21 20:35 01/05/21 23:33 01/06/21 05:50 Glucose (Fingerstick) 110 mg/dL (70-99) 96 mg/dL (70-99) Influenza Type A Antigen Negative (NEGATIVE) Influenza Type B Antigen Negative (NEGATIVE) White Blood Count 12.7 x10^3/uL (4.0-11.0) Red Blood Count 4.20 x10^6/uL (3.50-5.40) Hemoglobin 10.3 g/dL (12.0-15.5) Hematocrit 34.1 % (36.0-47.0) Mean Corpuscular Volume 81 fL (79-100) Mean Corpuscular Hemoglobin 25 pg (25-35) Mean Corpuscular Hemoglobin Concent 30 g/dL (31-37) Red Cell Distribution Width 15.9 % (11.5-14.5) Platelet Count 491 x10^3/uL (140-400) Neutrophils (%) (Auto) 87 % (31-73) Lymphocytes (%) (Auto) 8 % (24-48) Monocytes (%) (Auto) 6 % (0-9) Eosinophils (%) (Auto) 0 % (0-3) Basophils (%) (Auto) 0 % (0-3) Neutrophils # (Auto) 11.0 x10^3/uL (1.8-7.7) Lymphocytes # (Auto) 1.0 x10^3/uL (1.0-4.8) Monocytes # (Auto) 0.7 x10^3/uL (0.0-1.1) Eosinophils # (Auto) 0.0 x10^3/uL (0.0-0.7) Basophils # (Auto) 0.0 x10^3/uL (0.0-0.2) Sodium Level 132 mmol/L (136-145) Potassium Level 4.1 mmol/L (3.5-5.1) Chloride Level 87 mmol/L (98-107) Carbon Dioxide Level 36 mmol/L (21-32) Anion Gap 9 (6-14) Blood Urea Nitrogen 33 mg/dL (7-20) Creatinine 1.0 mg/dL (0.6-1.0) Estimated GFR (Cockcroft-Gault) 52.2 Glucose Level 103 mg/dL (70-99) Calcium Level 9.1 mg/dL (8.5-10.1) Test 01/06/21 07:57 01/06/21 11:53 Glucose (Fingerstick) 90 mg/dL (70-99) 135 mg/dL (70-99) Microbiology 01/04/21 Blood Culture - Preliminary, Resulted NO GROWTH AFTER 2 DAYS Medications Current Medications Albuterol/ Ipratropium (Duoneb) 3 ml 1X ONCE NEB Last administered on 01/04/21at 10:43; Start 01/04/21 at 10:30; Stop 01/04/21 at 10:38; Status DC Albuterol/ Ipratropium (Duoneb) 3 ml STK-MED ONCE .ROUTE ; Start 01/04/21 at 10:38; Stop 01/04/21 at 10:39; Status DC Furosemide (Lasix) 40 mg 1X ONCE IVP Last administered on 01/04/21at 16:00; Start 01/04/21 at 13:00; Stop 01/04/21 at 13:01; Status DC Albuterol Sulfate (Ventolin Neb Soln) 2.5 mg PRN Q4HRS PRN NEB SHORTNESS OF BREATH; Start 01/04/21 at 15:30 Alprazolam (Xanax) 0.5 mg BID PO Last administered on 01/06/21at 09:02; Start 01/04/21 at 21:00 Aspirin (Aspirin Chewable) 81 mg DAILY PO Last administered on 01/06/21at 09:07; Start 01/05/21 at 09:00 Bumetanide (Bumex) 1 mg DAILY PO ; Start 01/05/21 at 09:00; Stop 01/04/21 at 16:28; Status DC Docusate Sodium (Colace) 100 mg BID PO Last administered on 01/06/21at 09:04; Start 01/04/21 at 21:00 Fentanyl (Duragesic 12mcg/ Hr Patch) 1 patch Q3DAYS TD ; Start 01/07/21 at 09:00; Stop 01/04/21 at 16:28; Status DC Acetaminophen/ Hydrocodone Bitart (Lortab 5/325) 1 tab PRN Q8HRS PRN PO MODERATE PAIN; Start 01/04/21 at 15:30; Stop 01/04/21 at 16:37; Status DC Lidocaine (Lidoderm) 1 patch DAILY TP Last administered on 01/06/21at 09:02; Start 01/04/21 at 16:00 Metoprolol Succinate (Toprol Xl) 25 mg DAILY PO ; Start 01/05/21 at 09:00; Stop 01/04/21 at 17:15; Status DC Pantoprazole Sodium (Protonix) 40 mg DAILYAC PO Last administered on 01/06/21at 09:06; Start 01/05/21 at 07:30 Polyethylene Glycol (miraLAX PACKET) 17 gm PRN DAILY PRN PO CONSTIPATION Last administered on 01/06/21at 08:59; Start 01/04/21 at 15:30 Prednisone (Prednisone) 20 mg DAILY PO ; Start 01/05/21 at 09:00; Stop 01/04/21 at 16:28; Status DC Pregabalin (Lyrica) 50 mg BID PO Last administered on 01/06/21at 09:04; Start 01/04/21 at 21:00 Ropinirole HCl (Requip) 1 mg TID PO ; Start 01/04/21 at 16:00; Stop 01/04/21 at 16:28; Status DC Vitamin D (Vitamin D3) 1,000 unit DAILY PO Last administered on 01/06/21at 09:05; Start 01/05/21 at 09:00 Duloxetine HCl (Cymbalta) 60 mg DAILY PO Last administered on 01/06/21at 09:04; Start 01/05/21 at 09:00 Non-Formulary Medication (Fluticasone/ Salmeterol (Advair 250-50 Diskus)) 1 puff BID IH ; Start 01/04/21 at 21:00; Status UNV Non-Formulary Medication (Melatonin ) 1 tab QHS PO ; Start 01/04/21 at 21:00; Status UNV Nystatin (Nystop) 1 shady BID TP Last administered on 01/06/21at 09:07; Start 01/04/21 at 21:00 Sertraline HCl (Zoloft) 100 mg DAILY PO Last administered on 01/06/21at 09:07; Start 01/05/21 at 09:00 Miscellaneous (Lidoderm Patch Removal) 1 ea QHS MC Last administered on 01/05/21at 20:45; Start 01/04/21 at 21:00 Albuterol Sulfate (Ventolin Neb Soln) 2.5 mg Q6HRS NEB ; Start 01/04/21 at 18:00; Stop 01/05/21 at 09:59; Status DC Budesonide (Pulmicort) 0.5 mg RTBID NEB Last administered on 01/06/21at 07:11; Start 01/04/21 at 20:00 Fentanyl (Duragesic 25mcg/ Hr Patch) 1 patch Q3DAYS TD ; Start 01/04/21 at 17:00; Stop 01/05/21 at 12:02; Status DC Acetaminophen/ Hydrocodone Bitart (Lortab 5/325) 1 tab PRN Q4HRS PRN PO PAIN; Start 01/04/21 at 16:15; Stop 01/04/21 at 16:42; Status DC Ropinirole HCl (Requip) 2 mg TID PO Last administered on 01/06/21at 14:16; Start 01/04/21 at 21:00 Albuterol/ Ipratropium (Duoneb) 3 ml RTQID NEB Last administered on 01/06/21at 15:33; Start 01/04/21 at 20:00 Hydroxychloroquine Sulfate (Plaquenil) 200 mg BID PO Last administered on 01/06/21at 09:03; Start 01/04/21 at 21:00 Al Hydroxide/Mg Hydroxide (Mylanta Plus Xs) 30 ml PRN Q2HR PRN PO HEARTBURN / GAS; Start 01/04/21 at 16:15 Heparin Sodium (Porcine) (Heparin Sodium) 5,000 unit Q12HR SQ Last administered on 01/05/21at 08:18; Start 01/04/21 at 21:00; Stop 01/05/21 at 09:59; Status DC Methylprednisolone Sodium Succinate (SOLU-Medrol 40MG VIAL) 40 mg Q12HR IV Last administered on 01/06/21at 09:07; Start 01/04/21 at 21:00 Insulin Human Lispro (HumaLOG) 0-6 UNITS BG 300-39... TIDWMEALS SQ ; Start 01/04/21 at 17:00 Furosemide (Lasix) 40 mg DAILY IVP Last administered on 01/06/21at 09:06; Start 01/05/21 at 09:00; Stop 01/06/21 at 10:28; Status DC Sertraline HCl (Zoloft) 100 mg DAILY PO ; Start 01/05/21 at 09:00; Stop 01/04/21 at 16:37; Status DC Zolpidem Tartrate (Ambien) 5 mg PRN QHS PRN PO INSOMNIA Last administered on 01/05/21at 20:43; Start 01/04/21 at 16:15 Vitamin D (Vitamin D3) 1,000 unit DAILY PO ; Start 01/05/21 at 09:00; Status UNV Ceftriaxone Sodium (Rocephin) 1 gm Q24H IVP Last administered on 01/05/21at 18:27; Start 01/04/21 at 17:00 Metoprolol Succinate (Toprol Xl) 50 mg DAILY PO Last administered on 01/06/21at 09:06; Start 01/05/21 at 09:00 Metoprolol Succinate (Toprol Xl) 25 mg 1X ONCE PO Last administered on at 19:00; Start 01/04/21 at 17:30; Stop 01/04/21 at 17:31; Status DC Albuterol Sulfate (Ventolin Neb Soln) 2.5 mg QID NEB ; Start 01/05/21 at 13:00; Stop 01/06/21 at 10:04; Status DC Heparin Sodium (Porcine) (Heparin Sodium) 5,000 unit Q12HR SQ Last administered on 01/06/21at 09:13; Start 01/05/21 at 21:00 Fentanyl (Duragesic 25mcg/ Hr Patch) 1 patch Q3DAYS TD Last administered on 01/05/21at 14:07; Start 01/05/21 at 12:00 Bumetanide (Bumex) 1 mg DAILY PO ; Start 01/07/21 at 09:00 Multivitamins (Thera M Plus) 1 tab DAILY PO ; Start 01/07/21 at 09:00 Ascorbic Acid (Vitamin C) 500 mg DAILY PO ; Start 01/07/21 at 09:00 Active Scripts Active Klor-Con M20 (Potassium Chloride) 20 Meq Tab.er.prt 1 Tab PO DAILY 30 Days Prednisone (Prednisone) 10 Mg Tablet 20 Mg PO DAILY Bumetanide 1 Mg Tablet 1 Mg PO DAILY Metoprolol Succinate ( Xl ) (Metoprolol Succinate) 25 Mg Tab.er.24h 25 Mg PO DAILY Aspirin 81 Mg Tab.chew 81 Mg PO DAILY Ropinirole Hcl 1 Mg Tablet 1 Mg PO TID Alprazolam 0.5 Mg Tablet 0.5 Mg PO BID FENTANYL 12mcg/hr (Fentanyl) 1 Each Patch.td72 1 Patch TP Q3DAYS Lyrica (Pregabalin) 50 Mg Capsule 1 Cap PO BID Pantoprazole Sodium (Pantoprazole Sodium) 40 Mg Tablet.dr 40 Mg PO DAILY Hydrocodone-Apap 5-325 (Hydrocodone Bit/Acetaminophen) 1 Tab Tablet 1 Tab PO PRN Q8HRS PRN Reported Sertraline Hcl 100 Mg Tablet 100 Mg PO DAILY Miralax (Polyethylene Glycol 3350) 17 Gm Powd.pack 1 Packet PO DAILY PRN 2 Days dissolve in water Nystatin 1 Each Powder.ea. 1 Each MC BID Melatonin 5 Mg Tab.rapdis 1 Tab PO QHS 30 Days Lidocaine PATCH (Lidocaine) 1 Each Adh..patch 1 Each TP DAILY REMOVE AFTER 12 HOURS Cymbalta (Duloxetine Hcl) 60 Mg Capsule. 1 Cap PO DAILY Colace (Docusate Sodium) 100 Mg Capsule 1 Cap PO BID 30 Days Albuterol Sulfate Neb Soln (Albuterol Sulfate) 2.5 Mg/3 Ml Vial.neb 1 Vial NEB PRN Q4HRS Advair 250-50 Diskus (Fluticasone/Salmeterol) 1 Each Disk.w.dev 1 Puff IH BID Vitamin D (Cholecalciferol (Vitamin D3)) 1,000 Unit Capsule 1 Cap PO DAILY Vitals/I & O Vital Sign - Last 24 Hours 01/05/21 01/05/21 01/05/21 01/05/21 17:15 18:05 19:33 19:35 Temp 99.1 99.1 Pulse 92 Resp 20 B/P (MAP) 130/76 (94) Pulse Ox 97 97 96 O2 Delivery Nasal Cannula Nasal Cannula Nasal Cannula Nasal Cannula O2 Flow Rate 3.0 3.0 4.0 3.0 01/05/21 01/05/21 01/06/21 01/06/21 21:04 23:00 02:50 07:00 Temp 97.3 98.9 98.6 97.3 98.9 98.6 Pulse 100 93 98 Resp 20 22 22 B/P (MAP) 136/66 (89) 134/66 (88) 111/58 (75) Pulse Ox 96 95 95 93 O2 Delivery Nasal Cannula Nasal Cannula Nasal Cannula Nasal Cannula O2 Flow Rate 3.0 3.0 3.0 3.0 01/06/21 01/06/21 01/06/21 01/06/21 07:12 08:00 09:06 11:00 Temp 99.3 99.3 Pulse 98 93 Resp 22 B/P (MAP) 111/58 127/60 (82) Pulse Ox 91 94 O2 Delivery Nasal Cannula Nasal Cannula Nasal Cannula O2 Flow Rate 3.0 3.0 3.0 01/06/21 01/06/21 12:14 15:34 Pulse Ox 92 97 O2 Delivery Nasal Cannula Nasal Cannula O2 Flow Rate 3.0 3.0 Intake and Output 01/05/21 01/05/21 01/06/21 15:00 23:00 07:00 Intake Total 530 ml 280 ml 100 ml Output Total 500 ml 250 ml Balance 30 ml 280 ml -150 ml Justifications for Admission Other Justification Nutrition Consultation Dietary Evaluation: Recommendations by RD: Dietary education by RD, Protein supplementation Comments: ADA/cardiac diet glucerna tid REC mvi and vit c per wound protocal- discussed with TAMAR Woods Expected Outcomes/Goals: to meet >75% est nutr needs improved wound status Malnutrition Findings: Food and Nutrition Intake (Sev: <50% est energy req 5days Weight Status: Obese Fluid Accumulation (Severe): Severe KARAN KIMBLE MD Jan 06, 2021 16:21
[2021-01-06] MEDS: cefTRIAXone IV Push 1 GM VIAL. IVP SCH (17:50)
[2021-01-06 19:26] VITALS: BP 103/66
[2021-01-06] MEDS: PATCH REMOVAL. MC SCH (21:00)
[2021-01-06] MEDS: ZOLPIDEM 5 MG TABLET. PO PRN (21:11)
[2021-01-06 22:14] VITALS: BP 91/51
[2021-01-07 03:00] VITALS: BP 105/51
[2021-01-07 06:28] LABS: BASO % 0 % (0-3); EOS % 0 % (0-3); HEMATOCRIT 34.2 % (36.0-47.0); HEMOGLOBIN 10.3 g/dL (12.0-15.5); LYMPH % 7 % (24-48); MEAN CORPUSCULAR HEMOGLOBIN 25 pg (25-35); MEAN CORPUSCULAR HGB CONC 30 g/dL (31-37); MEAN CORPUSCULAR VOLUME 82 fL (79-100); MONO # 0.6 x10^3/uL (0.0-1.1); MONO % 4 % (0-9); NEUT # 12.7 x10^3/uL (1.8-7.7); NEUT % 89 % (31-73); PLATELET COUNT 483 x10^3/uL (140-400); RED BLOOD COUNT 4.16 x10^6/uL (3.50-5.40); WHITE BLOOD COUNT 14.3 x10^3/uL (4.0-11.0)
[2021-01-07 06:43] LABS: CALCIUM 8.9 mg/dL (8.5-10.1); CREATININE 1.1 mg/dL (0.6-1.0); GFR 46.8; POTASSIUM 4.6 mmol/L (3.5-5.1)
[2021-01-07 07:00] VITALS: BP 116/54
[2021-01-07] MEDS: BUDESONIDE 0.5 MG/2 ML NEBU. NEB SCH ×2 (07:14→20:00)
[2021-01-07] MEDS: IPRATRPIUM/ALBUTEROL 0.5/2.5MG 3 ML NEBU. NEB SCH ×4 (07:14→20:00)
[2021-01-07] MEDS: INSULIN LISPRO 300 UNITS/3 ML VIAL. SQ SCH ×3 (08:00→17:12)
--- NOTE | 2021-01-07 08:23 | PDOC ---
PULMONARY PROGRESS NOTES DATE: 01/07/21 TIME: 08:23 Subjective Patient not more short of air, feels better. Vitals Vital Signs Date Time Temp Pulse Resp B/P (MAP) Pulse Ox O2 Delivery O2 Flow Rate FiO2 01/07/21 07:14 96 Nasal Cannula 3.0 01/07/21 03:00 98.2 87 22 105/51 (69) 98.2 ROS: No Nausea, No Chest Pain, No Abdominal Pain, No Increase Cough General: Alert Lungs: Clear Cardiovascular: S1, S2 Abdomen: Soft Neuro Exam: Alert Extremities: No Edema Skin: Warm (All nothing recently showedFor further dayMedication oral antibiotic due to upset or having any challenges just except what they sayInfected were done just this Gotto just got off the phoneHis girlfriend is) Labs Laboratory Tests Test 01/05/21 08:32 01/05/21 11:27 01/05/21 16:32 01/05/21 20:35 Glucose (Fingerstick) 82 mg/dL (70-99) 115 mg/dL (70-99) 110 mg/dL (70-99) 96 mg/dL (70-99) Test 01/05/21 23:33 01/06/21 05:50 01/06/21 07:57 01/06/21 11:53 Influenza Type A Antigen Negative (NEGATIVE) Influenza Type B Antigen Negative (NEGATIVE) White Blood Count 12.7 x10^3/uL (4.0-11.0) Red Blood Count 4.20 x10^6/uL (3.50-5.40) Hemoglobin 10.3 g/dL (12.0-15.5) Hematocrit 34.1 % (36.0-47.0) Mean Corpuscular Volume 81 fL (79-100) Mean Corpuscular Hemoglobin 25 pg (25-35) Mean Corpuscular Hemoglobin Concent 30 g/dL (31-37) Red Cell Distribution Width 15.9 % (11.5-14.5) Platelet Count 491 x10^3/uL (140-400) Neutrophils (%) (Auto) 87 % (31-73) Lymphocytes (%) (Auto) 8 % (24-48) Monocytes (%) (Auto) 6 % (0-9) Eosinophils (%) (Auto) 0 % (0-3) Basophils (%) (Auto) 0 % (0-3) Neutrophils # (Auto) 11.0 x10^3/uL (1.8-7.7) Lymphocytes # (Auto) 1.0 x10^3/uL (1.0-4.8) Monocytes # (Auto) 0.7 x10^3/uL (0.0-1.1) Eosinophils # (Auto) 0.0 x10^3/uL (0.0-0.7) Basophils # (Auto) 0.0 x10^3/uL (0.0-0.2) Sodium Level 132 mmol/L (136-145) Potassium Level 4.1 mmol/L (3.5-5.1) Chloride Level 87 mmol/L (98-107) Carbon Dioxide Level 36 mmol/L (21-32) Anion Gap 9 (6-14) Blood Urea Nitrogen 33 mg/dL (7-20) Creatinine 1.0 mg/dL (0.6-1.0) Estimated GFR (Cockcroft-Gault) 52.2 Glucose Level 103 mg/dL (70-99) Calcium Level 9.1 mg/dL (8.5-10.1) Glucose (Fingerstick) 90 mg/dL (70-99) 135 mg/dL (70-99) Test 01/06/21 17:13 01/06/21 20:15 01/07/21 04:45 01/07/21 07:34 Glucose (Fingerstick) 119 mg/dL (70-99) 89 mg/dL (70-99) 87 mg/dL (70-99) White Blood Count 14.3 x10^3/uL (4.0-11.0) Red Blood Count 4.16 x10^6/uL (3.50-5.40) Hemoglobin 10.3 g/dL (12.0-15.5) Hematocrit 34.2 % (36.0-47.0) Mean Corpuscular Volume 82 fL (79-100) Mean Corpuscular Hemoglobin 25 pg (25-35) Mean Corpuscular Hemoglobin Concent 30 g/dL (31-37) Red Cell Distribution Width 16.0 % (11.5-14.5) Platelet Count 483 x10^3/uL (140-400) Neutrophils (%) (Auto) 89 % (31-73) Lymphocytes (%) (Auto) 7 % (24-48) Monocytes (%) (Auto) 4 % (0-9) Eosinophils (%) (Auto) 0 % (0-3) Basophils (%) (Auto) 0 % (0-3) Neutrophils # (Auto) 12.7 x10^3/uL (1.8-7.7) Lymphocytes # (Auto) 1.0 x10^3/uL (1.0-4.8) Monocytes # (Auto) 0.6 x10^3/uL (0.0-1.1) Eosinophils # (Auto) 0.0 x10^3/uL (0.0-0.7) Basophils # (Auto) 0.0 x10^3/uL (0.0-0.2) Sodium Level 135 mmol/L (136-145) Potassium Level 4.6 mmol/L (3.5-5.1) Chloride Level 91 mmol/L (98-107) Carbon Dioxide Level 37 mmol/L (21-32) Anion Gap 7 (6-14) Blood Urea Nitrogen 47 mg/dL (7-20) Creatinine 1.1 mg/dL (0.6-1.0) Estimated GFR (Cockcroft-Gault) 46.8 Glucose Level 124 mg/dL (70-99) Calcium Level 8.9 mg/dL (8.5-10.1) Laboratory Tests Test 01/06/21 11:53 01/06/21 17:13 01/06/21 20:15 01/07/21 04:45 Glucose (Fingerstick) 135 mg/dL (70-99) 119 mg/dL (70-99) 89 mg/dL (70-99) White Blood Count 14.3 x10^3/uL (4.0-11.0) Red Blood Count 4.16 x10^6/uL (3.50-5.40) Hemoglobin 10.3 g/dL (12.0-15.5) Hematocrit 34.2 % (36.0-47.0) Mean Corpuscular Volume 82 fL (79-100) Mean Corpuscular Hemoglobin 25 pg (25-35) Mean Corpuscular Hemoglobin Concent 30 g/dL (31-37) Red Cell Distribution Width 16.0 % (11.5-14.5) Platelet Count 483 x10^3/uL (140-400) Neutrophils (%) (Auto) 89 % (31-73) Lymphocytes (%) (Auto) 7 % (24-48) Monocytes (%) (Auto) 4 % (0-9) Eosinophils (%) (Auto) 0 % (0-3) Basophils (%) (Auto) 0 % (0-3) Neutrophils # (Auto) 12.7 x10^3/uL (1.8-7.7) Lymphocytes # (Auto) 1.0 x10^3/uL (1.0-4.8) Monocytes # (Auto) 0.6 x10^3/uL (0.0-1.1) Eosinophils # (Auto) 0.0 x10^3/uL (0.0-0.7) Basophils # (Auto) 0.0 x10^3/uL (0.0-0.2) Sodium Level 135 mmol/L (136-145) Potassium Level 4.6 mmol/L (3.5-5.1) Chloride Level 91 mmol/L (98-107) Carbon Dioxide Level 37 mmol/L (21-32) Anion Gap 7 (6-14) Blood Urea Nitrogen 47 mg/dL (7-20) Creatinine 1.1 mg/dL (0.6-1.0) Estimated GFR (Cockcroft-Gault) 46.8 Glucose Level 124 mg/dL (70-99) Calcium Level 8.9 mg/dL (8.5-10.1) Test 01/07/21 07:34 Glucose (Fingerstick) 87 mg/dL (70-99) Medications Active Scripts Medications Dose Route/Sig Max Daily Dose Days Date Category Dose Instructions Klor-Con M20 (Potassium Chloride) 20 Meq Tab.er.prt 1 Tab PO DAILY 30 06/12/20 Rx Prednisone (Prednisone) 10 Mg Tablet 20 Mg PO DAILY 06/12/20 Rx Bumetanide 1 Mg Tablet 1 Mg PO DAILY 06/12/20 Rx Metoprolol Succinate ( Xl ) (Metoprolol Succinate) 25 Mg Tab.er.24h 25 Mg PO DAILY 06/12/20 Rx Sertraline Hcl 100 Mg Tablet 100 Mg PO DAILY 06/10/20 Reported Miralax (Polyethylene Glycol 3350) 17 Gm Powd.pack 1 Packet PO DAILY PRN 2 06/10/20 Reported dissolve in water Nystatin 1 Each Powder.ea. 1 Each MC BID 06/10/20 Reported Melatonin 5 Mg Tab.rapdis 1 Tab PO QHS 30 06/10/20 Reported Lidocaine PATCH (Lidocaine) 1 Each Adh..patch 1 Each TP DAILY 06/10/20 Reported REMOVE AFTER 12 HOURS Cymbalta (Duloxetine Hcl) 60 Mg Capsule. 1 Cap PO DAILY 06/10/20 Reported Colace (Docusate Sodium) 100 Mg Capsule 1 Cap PO BID 30 06/10/20 Reported Albuterol Sulfate Neb Soln (Albuterol Sulfate) 2.5 Mg/3 Ml Vial.neb 1 Vial NEB PRN Q4HRS 06/10/20 Reported Advair 250-50 Diskus (Fluticasone/Salmeterol) 1 Each Disk.w.dev 1 Puff IH BID 06/10/20 Reported Aspirin 81 Mg Tab.chew 81 Mg PO DAILY 07/15/19 Rx Ropinirole Hcl 1 Mg Tablet 1 Mg PO TID 07/15/19 Rx Alprazolam 0.5 Mg Tablet 0.5 Mg PO BID 07/15/19 Rx FENTANYL 12mcg/hr (Fentanyl) 1 Each Patch.td72 1 Patch TP Q3DAYS 01/23/19 Rx Lyrica (Pregabalin) 50 Mg Capsule 1 Cap PO BID 01/23/19 Rx Pantoprazole Sodium (Pantoprazole Sodium) 40 Mg Tablet.dr 40 Mg PO DAILY 01/13/19 Rx Hydrocodone-Apap 5-325 (Hydrocodone Bit/Acetaminophen) 1 Tab Tablet 1 Tab PO PRN Q8HRS PRN 01/13/19 Rx Vitamin D (Cholecalciferol (Vitamin D3)) 1,000 Unit Capsule 1 Cap PO DAILY 06/24/17 Reported Impression . IMPRESSION: 1. Acute on chronic respiratory failure, multifactorial. 2. Acute on chronic heart failure, diastolic. 3. Secondary pulmonary hypertension, pulmonary artery pressure measured at 40 mmHg. 4. 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 5. Acute exacerbation of chronic obstructive pulmonary disease. 6. Possible pneumonia. Plan . Updated 01/07 Patient feels better, suspect most of her symptoms were related to pulmonary edema Discontinue antibiotics Taper prednisone Possible discharge in the a.m. Updated 01/06 Patient improving Continue diuresis Follow cardiology input Oxygen supplementation MEDNIA PAYNE MD Jan 07, 2021 08:23
[2021-01-07] MEDS: HEPARIN for SUB-Q USE 5,000 UNIT/ML VIAL. SQ SCH ×2 (08:51→21:10)
[2021-01-07] MEDS ORDERED: BUMETANIDE 1 MG TABLET. PO SCH (09:00)
[2021-01-07] MEDS: NYSTATIN TOPICAL POWDER 15GM BOTTLE. TP SCH ×2 (09:00→21:04)
[2021-01-07] MEDS ORDERED: fentaNYL 12MCG/HR PATCH 1 PATCH PATCH.TD72 TD SCH (09:00)
[2021-01-07] MEDS: LIDOCAINE (700MG/PATCH) PATCH. TP SCH (09:15)
[2021-01-07] MEDS: DULoxetine HCL 30 MG CAPSULE.DR PO SCH (09:16)
[2021-01-07] MEDS: rOPINIRole 1 MG TABLET. PO SCH ×3 (09:16→21:03)
[2021-01-07] MEDS: PREGABALIN 50 MG CAPSULE PO SCH ×2 (09:16→21:02)
[2021-01-07] MEDS: ASCORBIC ACID 500 MG TABLET PO SCH (09:16)
[2021-01-07] MEDS: ASPIRIN CHEWABLE 81 MG TABLET. PO SCH (09:16)
[2021-01-07] MEDS: SERTRALINE 50 MG TABLET. PO SCH (09:16)
[2021-01-07] MEDS: PANTOPRAZOLE 40 MG TABLET.DR. PO SCH (09:16)
[2021-01-07] MEDS: MULTIVITAMIN with MINERAL TABLET. PO SCH (09:17)
[2021-01-07] MEDS: METOPROLOL SUCC 24HR ER 50 MG TAB.ER.24H. PO SCH (09:17)
[2021-01-07] MEDS: ALPRAZolam 0.5 MG TABLET PO SCH ×2 (09:17→21:02)
[2021-01-07] MEDS: DOCUSATE SODIUM 100 MG CAPSULE. PO SCH ×2 (09:17→21:02)
[2021-01-07] MEDS: methylPREDNISolone SOD SUCC PF 40 MG/ML VIAL. IV SCH (09:18)
[2021-01-07] MEDS: HYDROXYCHLOROQUINE 200 MG TABLET PO SCH ×2 (09:19→21:02)
[2021-01-07] MEDS: CHOLECALCIFEROL (VITAMIN D3) 1,000 UNIT TABLET PO SCH (09:20)
--- NOTE | 2021-01-07 09:27 | CONS ---
DATE OF CONSULTATION: 01/07/2021 REFERRING PHYSICIAN: Esau Castelan MD REASON FOR CONSULTATION: Pneumonia. HISTORY OF PRESENT ILLNESS: An 89-year-old female with history of COPD, depression, diabetes, fibromyalgia, GERD, hypertension, history of UTI, CHF, coronary artery disease, PPM presented to the ER on 01/04/2021 with complaints of worsening shortness of breath over the past week. The patient was not doing well, had sputum production. Denies any fevers, chills. The patient also had multiple falls at home. She no longer can walk, uses a wheelchair. She was afebrile on admission, tachycardic. Chest x-ray showed chronic bilateral interstitial infiltrates with superimposed acute interstitial pulmonary edema. The patient was admitted to medical floor, was started on azithromycin and ceftriaxone. ID consultation has been requested for antibiotic management. Today, the patient states she feels a little better. Denies any fevers, chills, nausea, vomiting, diarrhea, abdominal pain, symptoms. Overall, strength is improving, though slowly. PAST MEDICAL HISTORY: Chronic diastolic congestive heart failure; moderate aortic stenosis; COPD; chronic hypoxic respiratory failure, on home O2; diabetes mellitus; hypertension; hyperlipidemia; PPM; right hip arthroplasty; cataract extraction; restless leg syndrome; lumbar spondylosis; gastritis; esophageal stricture, status post dilatation; cholecystectomy; pacemaker placement; laminectomy. CURRENT MEDICATIONS: Ceftriaxone, received a dose of azithromycin in the ER. SOCIAL HISTORY: The patient lives at home with supportive caregivers. No alcohol, no smoking. Uses a wheelchair. FAMILY HISTORY: As per HPI. REVIEW OF SYSTEMS: Negative except for above in HPI. PHYSICAL EXAMINATION: VITAL SIGNS: Temperature 98.2, pulse 87, respiratory rate 22, blood pressure 105/51, oxygen saturation 96% on 3 liters O2 by nasal cannula. GENERAL: Alert, oriented x 3 female sitting upright in bed, on nasal O2, in no acute distress. HEENT: Normocephalic, atraumatic. Anicteric. No thrush. NECK: Supple. LUNGS: Crackles otherwise clear. HEART: S1, S2. PPM site looks clean. ABDOMEN: Soft, obese. Bowel sounds present, nontender, nondistended. EXTREMITIES: Trace edema, no cyanosis. DERMATOLOGIC: Warm, dry. Multiple bruises present, especially over both the upper extremity with some abrasions. NEUROLOGIC: Alert and oriented x 3, grossly nonfocal. PSYCHIATRIC: Calm and cooperative. LABORATORY DATA: WBC 14.3, hemoglobin 10.3, hematocrit 34.2, platelets 483. Sodium 135, potassium 4.6, chloride 91, bicarbonate 37, BUN 47, creatinine 1.1, glucose 124, calcium 8.9. Influenza screen negative. SARS-COVID negative. MICRO: Blood culture negative. IMAGING: CT chest, abdomen and pelvis showed right lower lobe dense consolidation concerning for infectious or inflammatory process. Additional bilateral ground glass opacities, may represent additional signs of infection or edema. Small right pleural effusion, mediastinal lymphadenopathy, which may be reactive. IMPRESSION: 1. Acute hypoxic respiratory failure, combination of congestive heart failure with underlying exacerbation off chronic obstructive pulmonary disease. 2. Leukocytosis, on steroids. 3. Acute on chronic diastolic heart failure. 4. Chronic obstructive pulmonary disease exacerbation. 5. Diabetes mellitus. 6. History of aortic stenosis. 7. History of permanent pacemaker. 8. Hyperkalemia, improved. RECOMMENDATIONS: 1. Continue ceftriaxone. 2. Monitor labs and cultures 3. Continue supportive care. Thank you Dr. Castelan for allowing me to participate in this patient's care. JOHN COSTELLO: Jannet TID: [id number] RUSSELL
--- NOTE | 2021-01-07 09:46 | NUR ---
SS following up with discharge planning. SS reviewed pt chart and discussed with pt RN. Pt is currently requiring oxygen at three liters nasal canula. COVID19 negative. Pt has home oxygen. Pt on IV Solu-Medrol and IV Rocephin. Pt has had [facility], ; fax [phone]. Pt lives at home with caregiver. SS will continue to follow for discharge planning.
[2021-01-07 11:00] VITALS: BP 108/56
--- NOTE | 2021-01-07 11:13 | PDOC ---
PROGRESS NOTES Date of Service DATE: 01/07/21 TIME: 11:10 Subjective Subjective FEELS BETTER. NOT SHORT OF BREATH. lab reviewed. bun 47 and will aliyah to d/c bumex but received it already today. Objective Objective Vital Signs Date Time Temp Pulse Resp B/P (MAP) Pulse Ox O2 Delivery O2 Flow Rate FiO2 01/07/21 09:17 90 116/54 01/07/21 08:00 Nasal Cannula 3.0 01/07/21 07:14 96 01/07/21 07:00 97.9 20 97.9 Intake and Output 01/07/21 07:00 Intake Total 1040 ml Output Total 550 ml Balance 490 ml Intake Oral 1040 ml Output Urine Total 550 ml # Voids 1 Physical Exam Abdomen: Soft Heart: Regular rate, Normal S2, Other (nsr) Extremities: No edema General: Alert HEENT: Atraumatic Lungs: Clear to auscultation Neuro: Normal speech Psych/Mental Status: Mental status NL Skin: No rashes Assessment Assessment Problems. Acute on chronic diastolic congestive heart failure. 2. Leukocytosis. better 3. Acute bronchitis, possible RLL pneumonia. 4. Chronic obstructive pulmonary disease. with acute exacerbation 5. Acute on chronic hypoxic respiratory failure. 6. Diabetes mellitus type 2, treated with diet. 7. Hypertension. 8. Hyperlipidemia. 9. Hyperkalemia.resolved 10. Anemia of chronic disease 11. Severe protein-calorie malnutrition. 12. no aortic stenosis on recent echo 13. Restless leg syndrome. 14. Debility. pre renal azotemia Medical Problems: (1) Pressure ulcer of coccygeal region Status: Acute (2) Pulmonary edema Status: Acute (3) Shortness of breath Status: Acute Plan Plan of Care d/c bumex lab tomorrow continue iv rocephin continue oxygen and solumedrol and nebulizer rx Comment Review of Relevant I have reviewed the following items lizbeth (where applicable) has been applied. Labs Laboratory Tests Test 01/05/21 11:27 01/05/21 16:32 01/05/21 20:35 01/05/21 23:33 Glucose (Fingerstick) 115 mg/dL (70-99) 110 mg/dL (70-99) 96 mg/dL (70-99) Influenza Type A Antigen Negative (NEGATIVE) Influenza Type B Antigen Negative (NEGATIVE) Test 01/06/21 05:50 01/06/21 07:57 01/06/21 11:53 01/06/21 17:13 White Blood Count 12.7 x10^3/uL (4.0-11.0) Red Blood Count 4.20 x10^6/uL (3.50-5.40) Hemoglobin 10.3 g/dL (12.0-15.5) Hematocrit 34.1 % (36.0-47.0) Mean Corpuscular Volume 81 fL (79-100) Mean Corpuscular Hemoglobin 25 pg (25-35) Mean Corpuscular Hemoglobin Concent 30 g/dL (31-37) Red Cell Distribution Width 15.9 % (11.5-14.5) Platelet Count 491 x10^3/uL (140-400) Neutrophils (%) (Auto) 87 % (31-73) Lymphocytes (%) (Auto) 8 % (24-48) Monocytes (%) (Auto) 6 % (0-9) Eosinophils (%) (Auto) 0 % (0-3) Basophils (%) (Auto) 0 % (0-3) Neutrophils # (Auto) 11.0 x10^3/uL (1.8-7.7) Lymphocytes # (Auto) 1.0 x10^3/uL (1.0-4.8) Monocytes # (Auto) 0.7 x10^3/uL (0.0-1.1) Eosinophils # (Auto) 0.0 x10^3/uL (0.0-0.7) Basophils # (Auto) 0.0 x10^3/uL (0.0-0.2) Sodium Level 132 mmol/L (136-145) Potassium Level 4.1 mmol/L (3.5-5.1) Chloride Level 87 mmol/L (98-107) Carbon Dioxide Level 36 mmol/L (21-32) Anion Gap 9 (6-14) Blood Urea Nitrogen 33 mg/dL (7-20) Creatinine 1.0 mg/dL (0.6-1.0) Estimated GFR (Cockcroft-Gault) 52.2 Glucose Level 103 mg/dL (70-99) Calcium Level 9.1 mg/dL (8.5-10.1) Glucose (Fingerstick) 90 mg/dL (70-99) 135 mg/dL (70-99) 119 mg/dL (70-99) Test 01/06/21 20:15 01/07/21 04:45 01/07/21 07:34 Glucose (Fingerstick) 89 mg/dL (70-99) 87 mg/dL (70-99) White Blood Count 14.3 x10^3/uL (4.0-11.0) Red Blood Count 4.16 x10^6/uL (3.50-5.40) Hemoglobin 10.3 g/dL (12.0-15.5) Hematocrit 34.2 % (36.0-47.0) Mean Corpuscular Volume 82 fL (79-100) Mean Corpuscular Hemoglobin 25 pg (25-35) Mean Corpuscular Hemoglobin Concent 30 g/dL (31-37) Red Cell Distribution Width 16.0 % (11.5-14.5) Platelet Count 483 x10^3/uL (140-400) Neutrophils (%) (Auto) 89 % (31-73) Lymphocytes (%) (Auto) 7 % (24-48) Monocytes (%) (Auto) 4 % (0-9) Eosinophils (%) (Auto) 0 % (0-3) Basophils (%) (Auto) 0 % (0-3) Neutrophils # (Auto) 12.7 x10^3/uL (1.8-7.7) Lymphocytes # (Auto) 1.0 x10^3/uL (1.0-4.8) Monocytes # (Auto) 0.6 x10^3/uL (0.0-1.1) Eosinophils # (Auto) 0.0 x10^3/uL (0.0-0.7) Basophils # (Auto) 0.0 x10^3/uL (0.0-0.2) Sodium Level 135 mmol/L (136-145) Potassium Level 4.6 mmol/L (3.5-5.1) Chloride Level 91 mmol/L (98-107) Carbon Dioxide Level 37 mmol/L (21-32) Anion Gap 7 (6-14) Blood Urea Nitrogen 47 mg/dL (7-20) Creatinine 1.1 mg/dL (0.6-1.0) Estimated GFR (Cockcroft-Gault) 46.8 Glucose Level 124 mg/dL (70-99) Calcium Level 8.9 mg/dL (8.5-10.1) Laboratory Tests Test 01/06/21 11:53 01/06/21 17:13 01/06/21 20:15 01/07/21 04:45 Glucose (Fingerstick) 135 mg/dL (70-99) 119 mg/dL (70-99) 89 mg/dL (70-99) White Blood Count 14.3 x10^3/uL (4.0-11.0) Red Blood Count 4.16 x10^6/uL (3.50-5.40) Hemoglobin 10.3 g/dL (12.0-15.5) Hematocrit 34.2 % (36.0-47.0) Mean Corpuscular Volume 82 fL (79-100) Mean Corpuscular Hemoglobin 25 pg (25-35) Mean Corpuscular Hemoglobin Concent 30 g/dL (31-37) Red Cell Distribution Width 16.0 % (11.5-14.5) Platelet Count 483 x10^3/uL (140-400) Neutrophils (%) (Auto) 89 % (31-73) Lymphocytes (%) (Auto) 7 % (24-48) Monocytes (%) (Auto) 4 % (0-9) Eosinophils (%) (Auto) 0 % (0-3) Basophils (%) (Auto) 0 % (0-3) Neutrophils # (Auto) 12.7 x10^3/uL (1.8-7.7) Lymphocytes # (Auto) 1.0 x10^3/uL (1.0-4.8) Monocytes # (Auto) 0.6 x10^3/uL (0.0-1.1) Eosinophils # (Auto) 0.0 x10^3/uL (0.0-0.7) Basophils # (Auto) 0.0 x10^3/uL (0.0-0.2) Sodium Level 135 mmol/L (136-145) Potassium Level 4.6 mmol/L (3.5-5.1) Chloride Level 91 mmol/L (98-107) Carbon Dioxide Level 37 mmol/L (21-32) Anion Gap 7 (6-14) Blood Urea Nitrogen 47 mg/dL (7-20) Creatinine 1.1 mg/dL (0.6-1.0) Estimated GFR (Cockcroft-Gault) 46.8 Glucose Level 124 mg/dL (70-99) Calcium Level 8.9 mg/dL (8.5-10.1) Test 01/07/21 07:34 Glucose (Fingerstick) 87 mg/dL (70-99) Microbiology 01/04/21 Blood Culture - Preliminary, Resulted NO GROWTH AFTER 2 DAYS Medications Current Medications Albuterol/ Ipratropium (Duoneb) 3 ml 1X ONCE NEB Last administered on 01/04/21at 10:43; Start 01/04/21 at 10:30; Stop 01/04/21 at 10:38; Status DC Albuterol/ Ipratropium (Duoneb) 3 ml STK-MED ONCE .ROUTE ; Start 01/04/21 at 10:38; Stop 01/04/21 at 10:39; Status DC Furosemide (Lasix) 40 mg 1X ONCE IVP Last administered on 01/04/21at 16:00; Start 01/04/21 at 13:00; Stop 01/04/21 at 13:01; Status DC Albuterol Sulfate (Ventolin Neb Soln) 2.5 mg PRN Q4HRS PRN NEB SHORTNESS OF BREATH; Start 01/04/21 at 15:30 Alprazolam (Xanax) 0.5 mg BID PO Last administered on 01/07/21at 09:17; Start 01/04/21 at 21:00 Aspirin (Aspirin Chewable) 81 mg DAILY PO Last administered on 01/07/21at 09:16; Start 01/05/21 at 09:00 Bumetanide (Bumex) 1 mg DAILY PO ; Start 01/05/21 at 09:00; Stop 01/04/21 at 16:28; Status DC Docusate Sodium (Colace) 100 mg BID PO Last administered on 01/07/21at 09:17; Start 01/04/21 at 21:00 Fentanyl (Duragesic 12mcg/ Hr Patch) 1 patch Q3DAYS TD ; Start 01/07/21 at 09:00; Stop 01/04/21 at 16:28; Status DC Acetaminophen/ Hydrocodone Bitart (Lortab 5/325) 1 tab PRN Q8HRS PRN PO MODERA TE PAIN; Start 01/04/21 at 15:30; Stop 01/04/21 at 16:37; Status DC Lidocaine (Lidoderm) 1 patch DAILY TP Last administered on 01/07/21at 09:15; Start 01/04/21 at 16:00 Metoprolol Succinate (Toprol Xl) 25 mg DAILY PO ; Start 01/05/21 at 09:00; Stop 01/04/21 at 17:15; Status DC Pantoprazole Sodium (Protonix) 40 mg DAILYAC PO Last administered on 01/07/21 09:16; Start 01/05/21 at 07:30 Polyethylene Glycol (miraLAX PACKET) 17 gm PRN DAILY PRN PO CONSTIPATION Last administered on 01/06/21at 08:59; Start 01/04/21 at 15:30 Prednisone (Prednisone) 20 mg DAILY PO ; Start 01/05/21 at 09:00; Stop 01/04/21 at 16:28; Status DC Pregabalin (Lyrica) 50 mg BID PO Last administered on 01/07/21at 09:16; Start 01/04/21 at 21:00 Ropinirole HCl (Requip) 1 mg TID PO ; Start 01/04/21 at 16:00; Stop 01/04/21 at 16:28; Status DC Vitamin D (Vitamin D3) 1,000 unit DAILY PO Last administered on 01/07/21 09:20; Start 01/05/21 at 09:00 Duloxetine HCl (Cymbalta) 60 mg DAILY PO Last administered on 01/07/21 09:16; Start 01/05/21 at 09:00 Non-Formulary Medication (Fluticasone/ Salmeterol (Advair 250-50 Diskus)) 1 puff BID IH ; Start 01/04/21 at 21:00; Status UNV Non-Formulary Medication (Melatonin ) 1 tab QHS PO ; Start 01/04/21 at 21:00; Status UNV Nystatin (Nystop) 1 shady BID TP Last administered on 01/07/21at 09:00; Start 01/04/21 at 21:00 Sertraline HCl (Zoloft) 100 mg DAILY PO Last administered on 01/07/21 09:16; Start 01/05/21 at 09:00 Miscellaneous (Lidoderm Patch Removal) 1 ea QHS MC Last administered on 01/06/21at 21:00; Start 01/04/21 at 21:00 Albuterol Sulfate (Ventolin Neb Soln) 2.5 mg Q6HRS NEB ; Start 01/04/21 at 18:00; Stop 01/05/21 at 09:59; Status DC Budesonide (Pulmicort) 0.5 mg RTBID NEB Last administered on 01/07/21at 07:14; Start 01/04/21 at 20:00 Fentanyl (Duragesic 25mcg/ Hr Patch) 1 patch Q3DAYS TD ; Start 01/04/21 at 17:00; Stop 01/05/21 at 12:02; Status DC Acetaminophen/ Hydrocodone Bitart (Lortab 5/325) 1 tab PRN Q4HRS PRN PO PAIN; Start 01/04/21 at 16:15; Stop 01/04/21 at 16:42; Status DC Ropinirole HCl (Requip) 2 mg TID PO Last administered on 01/07/21at 09:16; Start 01/04/21 at 21:00 Albuterol/ Ipratropium (Duoneb) 3 ml RTQID NEB Last administered on 01/07/21at 07:14; Start 01/04/21 at 20:00 Hydroxychloroquine Sulfate (Plaquenil) 200 mg BID PO Last administered on 01/07/21at 09:19; Start 01/04/21 at 21:00 Al Hydroxide/Mg Hydroxide (Mylanta Plus Xs) 30 ml PRN Q2HR PRN PO HEARTBURN / GAS; Start 01/04/21 at 16:15 Heparin Sodium (Porcine) (Heparin Sodium) 5,000 unit Q12HR SQ Last administered on 01/05/21at 08:18; Start 01/04/21 at 21:00; Stop 01/05/21 at 09:59; Status DC Methylprednisolone Sodium Succinate (SOLU-Medrol 40MG VIAL) 40 mg Q12HR IV Last administered on 01/07/21at 09:18; Start 01/04/21 at 21:00 Insulin Human Lispro (HumaLOG) 0-6 UNITS BG 300-39... TIDWMEALS SQ ; Start 01/04/21 at 17:00 Furosemide (Lasix) 40 mg DAILY IVP Last administered on 01/06/21at 09:06; Start 01/05/21 at 09:00; Stop 01/06/21 at 10:28; Status DC Sertraline HCl (Zoloft) 100 mg DAILY PO ; Start 01/05/21 at 09:00; Stop 01/04/21 at 16:37; Status DC Zolpidem Tartrate (Ambien) 5 mg PRN QHS PRN PO INSOMNIA Last administered on 01/06/21at 21:11; Start 01/04/21 at 16:15 Vitamin D (Vitamin D3) 1,000 unit DAILY PO ; Start 01/05/21 at 09:00; Status UNV Ceftriaxone Sodium (Rocephin) 1 gm Q24H IVP Last administered on 01/06/21at 17:50; Start 01/04/21 at 17:00 Metoprolol Succinate (Toprol Xl) 50 mg DAILY PO Last administered on 01/07/21at 09:17; Start 01/05/21 at 09:00 Metoprolol Succinate (Toprol Xl) 25 mg 1X ONCE PO Last administered on 01/04/21at 19:00; Start 01/04/21 at 17:30; Stop 01/04/21 at 17:31; Status DC Albuterol Sulfate (Ventolin Neb Soln) 2.5 mg QID NEB ; Start 01/05/21 at 13:00; Stop 01/06/21 at 10:04; Status DC Heparin Sodium (Porcine) (Heparin Sodium) 5,000 unit Q12HR SQ Last administered on 01/07/21at 08:51; Start 01/05/21 at 21:00 Fentanyl (Duragesic 25mcg/ Hr Patch) 1 patch Q3DAYS TD Last administered on 01/05/21at 14:07; Start 01/05/21 at 12:00 Bumetanide (Bumex) 1 mg DAILY PO Last administered on 01/07/21at 09:17; Start 01/07/21 at 09:00; Stop 01/07/21 at 10:56; Status DC Multivitamins (Thera M Plus) 1 tab DAILY PO Last administered on 01/07/21at 09:17; Start 01/07/21 at 09:00 Ascorbic Acid (Vitamin C) 500 mg DAILY PO Last administered on 01/07/21at 09:16; Start 01/07/21 at 09:00 Active Scripts Active Klor-Con M20 (Potassium Chloride) 20 Meq Tab.er.prt 1 Tab PO DAILY 30 Days Prednisone (Prednisone) 10 Mg Tablet 20 Mg PO DAILY Bumetanide 1 Mg Tablet 1 Mg PO DAILY Metoprolol Succinate ( Xl ) (Metoprolol Succinate) 25 Mg Tab.er.24h 25 Mg PO DAILY Aspirin 81 Mg Tab.chew 81 Mg PO DAILY Ropinirole Hcl 1 Mg Tablet 1 Mg PO TID Alprazolam 0.5 Mg Tablet 0.5 Mg PO BID FENTANYL 12mcg/hr (Fentanyl) 1 Each Patch.td72 1 Patch TP Q3DAYS Lyrica (Pregabalin) 50 Mg Capsule 1 Cap PO BID Pantoprazole Sodium (Pantoprazole Sodium) 40 Mg Tablet.dr 40 Mg PO DAILY Hydrocodone-Apap 5-325 (Hydrocodone Bit/Acetaminophen) 1 Tab Tablet 1 Tab PO PRN Q8HRS PRN Reported Sertraline Hcl 100 Mg Tablet 100 Mg PO DAILY Miralax (Polyethylene Glycol 3350) 17 Gm Powd.pack 1 Packet PO DAILY PRN 2 Days dissolve in water Nystatin 1 Each Powder.ea. 1 Each MC BID Melatonin 5 Mg Tab.rapdis 1 Tab PO QHS 30 Days Lidocaine PATCH (Lidocaine) 1 Each Adh..patch 1 Each TP DAILY REMOVE AFTER 12 HOURS Cymbalta (Duloxetine Hcl) 60 Mg Capsule. 1 Cap PO DAILY Colace (Docusate Sodium) 100 Mg Capsule 1 Cap PO BID 30 Days Albuterol Sulfate Neb Soln (Albuterol Sulfate) 2.5 Mg/3 Ml Vial.neb 1 Vial NEB PRN Q4HRS Advair 250-50 Diskus (Fluticasone/Salmeterol) 1 Each Disk.w.dev 1 Puff IH BID Vitamin D (Cholecalciferol (Vitamin D3)) 1,000 Unit Capsule 1 Cap PO DAILY Vitals/I & O Vital Sign - Last 24 Hours 01/06/21 01/06/21 01/06/21 01/06/21 12:14 15:00 15:34 19:26 Temp 99.1 99.0 99.1 99.0 Pulse 95 99 Resp 22 22 B/P (MAP) 116/58 (77) 103/66 (78) Pulse Ox 92 100 97 93 O2 Delivery Nasal Cannula Nasal Cannula Nasal Cannula Nasal Cannula O2 Flow Rate 3.0 3.0 3.0 3.0 01/06/21 01/06/21 01/06/21 01/07/21 19:35 20:43 22:14 03:00 Temp 98.8 98.2 98.8 98.2 Pulse 96 87 Resp 22 22 B/P (MAP) 91/51 (64) 105/51 (69) Pulse Ox 98 94 93 O2 Delivery Nasal Cannula Nasal Cannula Nasal Cannula Nasal Cannula O2 Flow Rate 3.0 3.0 3.0 3.0 01/07/21 01/07/21 01/07/21 01/07/21 07:00 07:14 08:00 09:17 Temp 97.9 97.9 Pulse 85 90 Resp 20 B/P (MAP) 116/54 (74) 116/54 Pulse Ox 94 96 O2 Delivery Nasal Cannula Nasal Cannula Nasal Cannula O2 Flow Rate 3.0 3.0 3.0 Intake and Output 01/06/21 01/06/21 01/07/21 15:00 23:00 07:00 Intake Total 560 ml 280 ml 200 ml Output Total 550 ml Balance 560 ml 280 ml -350 ml Justifications for Admission Other Justification Nutrition Consultation Dietary Evaluation: Recommendations by RD: Dietary education by RD, Protein supplementation Comments: ADA/cardiac diet glucerna tid REC mvi and vit c per wound protocal- discussed with TAMAR Woods Expected Outcomes/Goals: to meet >75% est nutr needs improved wound status Malnutrition Findings: Food and Nutrition Intake (Sev: <50% est energy req 5days Weight Status: Obese Fluid Accumulation (Severe): Severe KARAN KIMBLE MD Jan 07, 2021 11:13
--- NOTE | 2021-01-07 11:51 | PDOC ---
EMANUEL KELLEY [employer] 01/07/21 1151: CARDIO Progress Notes Date and Time Date of Service 01/07/2021 Time of Evaluation 1140 Subjective Subjective: No Chest Pain, No shortness of breath, No Palpitations Vitals Vitals Vital Signs Date Time Temp Pulse Resp B/P (MAP) Pulse Ox O2 Delivery O2 Flow Rate FiO2 01/07/21 11:00 97.9 86 20 108/56 (73) 94 Nasal Cannula 3.0 97.9 Weight Weight [ ] Input and Output Intake and Output Intake and Output 01/07/21 07:00 Intake Total 1040 ml Output Total 550 ml Balance 490 ml Intake Oral 1040 ml Output Urine Total 550 ml # Voids 1 Laboratory Labs Laboratory Tests Test 01/06/21 11:53 01/06/21 17:13 01/06/21 20:15 01/07/21 04:45 Glucose (Fingerstick) 135 mg/dL (70-99) 119 mg/dL (70-99) 89 mg/dL (70-99) White Blood Count 14.3 x10^3/uL (4.0-11.0) Red Blood Count 4.16 x10^6/uL (3.50-5.40) Hemoglobin 10.3 g/dL (12.0-15.5) Hematocrit 34.2 % (36.0-47.0) Mean Corpuscular Volume 82 fL (79-100) Mean Corpuscular Hemoglobin 25 pg (25-35) Mean Corpuscular Hemoglobin Concent 30 g/dL (31-37) Red Cell Distribution Width 16.0 % (11.5-14.5) Platelet Count 483 x10^3/uL (140-400) Neutrophils (%) (Auto) 89 % (31-73) Lymphocytes (%) (Auto) 7 % (24-48) Monocytes (%) (Auto) 4 % (0-9) Eosinophils (%) (Auto) 0 % (0-3) Basophils (%) (Auto) 0 % (0-3) Neutrophils # (Auto) 12.7 x10^3/uL (1.8-7.7) Lymphocytes # (Auto) 1.0 x10^3/uL (1.0-4.8) Monocytes # (Auto) 0.6 x10^3/uL (0.0-1.1) Eosinophils # (Auto) 0.0 x10^3/uL (0.0-0.7) Basophils # (Auto) 0.0 x10^3/uL (0.0-0.2) Sodium Level 135 mmol/L (136-145) Potassium Level 4.6 mmol/L (3.5-5.1) Chloride Level 91 mmol/L (98-107) Carbon Dioxide Level 37 mmol/L (21-32) Anion Gap 7 (6-14) Blood Urea Nitrogen 47 mg/dL (7-20) Creatinine 1.1 mg/dL (0.6-1.0) Estimated GFR (Cockcroft-Gault) 46.8 Glucose Level 124 mg/dL (70-99) Calcium Level 8.9 mg/dL (8.5-10.1) Test 01/07/21 07:34 01/07/21 11:42 Glucose (Fingerstick) 87 mg/dL (70-99) 147 mg/dL (70-99) Microbiology Micro Microbiology 01/04/21 Blood Culture - Preliminary, Resulted NO GROWTH AFTER 2 DAYS Physical Exam HEENT: Neck Supple W Full Motion Chest: Symmetric LUNGS: Other (diminished bases) Heart: RRR (SR) Abdomen: Soft N/T Extremities: No Edema Neurology: alert, oriented, follow commands Assessment Assessment 1. Acute on chronic diastolic CHF: Echo with preserved LV systolic function. compensated 2. AECOPD with possible pneumonia: SOA better 3. Hypertension; controlled 4. CAD; Moderate disease to RCA per [facility] in 2019. Recent MPI with no reversible ischemia or infarct. 5. Diabetes, II. 6. Hyperlipidemia 7. PPM with SSS: Hwang. SR with chronic LBBB 8. Moderate 9. Hyperkalemia: resolved Recommendations Resume diuretic therapy upon DC if home hydration is adequate Secondary preventions Ongoing lung optimization Supportive care Justicifation of Admission Dx: Justifications for Admission: Justification of Admission Dx: Yes CECILIA NIXON MD 01/08/21 0954: CARDIO Progress Notes Assessment Assessment Patient seen and examined on 01/07/2021. I agree with our nurse practitioners assessment and plan. Acute on chronic diastolic CHF: Echo with preserved LV systolic function. compensated AECOPD with possible pneumonia: Improving. Hypertension; controlled CAD; Moderate disease to RCA per [facility] in 2019. Recent MPI with no reversible ischemia or infarct. Diabetes, II. Hyperlipidemia PPM with SSS: Hwang. SR with chronic LBBB Moderate Hyperkalemia: resolved EMANUEL KELLEY APRN Jan 07, 2021 11:51 CECILIA NIXON MD Jan 08, 2021 09:54
[2021-01-07 15:00] VITALS: BP 100/49
[2021-01-07 19:44] VITALS: BP 112/51
[2021-01-07] MEDS: PATCH REMOVAL. MC SCH (21:00)
[2021-01-07 22:29] VITALS: BP 103/50
[2021-01-08 02:09] VITALS: BP 98/67
[2021-01-08] MEDS ORDERED: ACETAMINOPHEN 325 MG TABLET. PO PRN (02:30)
[2021-01-08 07:00] VITALS: BP 127/69
[2021-01-08] MEDS: BUDESONIDE 0.5 MG/2 ML NEBU. NEB SCH ×2 (07:45→19:28)
[2021-01-08] MEDS: IPRATRPIUM/ALBUTEROL 0.5/2.5MG 3 ML NEBU. NEB SCH ×4 (07:45→19:28)
[2021-01-08] MEDS: INSULIN LISPRO 300 UNITS/3 ML VIAL. SQ SCH ×3 (08:00→16:47)
[2021-01-08] MEDS: HEPARIN for SUB-Q USE 5,000 UNIT/ML VIAL. SQ SCH ×2 (08:04→21:42)
--- NOTE | 2021-01-08 08:13 | PDOC ---
Infectious Disease Note Subjective: Subjective Patient without complaints Says feels better Vital Signs: Vital Signs Vital Signs Date Time Temp Pulse Resp B/P (MAP) Pulse Ox O2 Delivery O2 Flow Rate FiO2 01/08/21 07:46 95 Nasal Cannula 3.0 01/08/21 07:00 98.2 84 18 127/69 (88) 98.2 Physical Exam: PHYSICAL EXAM GENERAL: Alert, oriented x 3 female sitting upright in bed, on nasal O2, in no acute distress. HEENT: Normocephalic, atraumatic. Anicteric. No thrush. NECK: Supple. LUNGS: Crackles otherwise clear. HEART: S1, S2. PPM site looks clean. ABDOMEN: Soft, obese. Bowel sounds present, nontender, nondistended. EXTREMITIES: Trace edema, no cyanosis. DERMATOLOGIC: Warm, dry. Multiple bruises present, especially over both the upper extremity with some abrasions. NEUROLOGIC: Alert and oriented x 3, grossly nonfocal. PSYCHIATRIC: Calm and cooperative. Medications: Inpatient Meds: Medications reviewed. Labs: Lab Laboratory Tests Test 01/07/21 11:42 01/07/21 16:56 01/07/21 20:43 01/08/21 07:23 Glucose (Fingerstick) 147 mg/dL (70-99) 155 mg/dL (70-99) 170 mg/dL (70-99) 108 mg/dL (70-99) Objective: Assessment: 1. Acute hypoxic respiratory failure, combination of congestive heart failure with underlying exacerbation off chronic obstructive pulmonary disease. 2. Leukocytosis, on steroids. 3. Acute on chronic diastolic heart failure. 4. Chronic obstructive pulmonary disease exacerbation. 5. Diabetes mellitus. 6. History of aortic stenosis. 7. History of permanent pacemaker. 8. Hyperkalemia, improved. Plan: Plan of Care Ceftriaxone has been discontinued We will sign off Call us with any questions EUSEBIO DARLING MD Jan 08, 2021 08:13
[2021-01-08] MEDS: ALPRAZolam 0.5 MG TABLET PO SCH ×2 (08:45→21:35)
[2021-01-08] MEDS: NYSTATIN TOPICAL POWDER 15GM BOTTLE. TP SCH ×2 (08:45→21:00)
[2021-01-08] MEDS: DULoxetine HCL 30 MG CAPSULE.DR PO SCH (08:45)
[2021-01-08] MEDS: MULTIVITAMIN with MINERAL TABLET. PO SCH (08:45)
[2021-01-08] MEDS: LIDOCAINE (700MG/PATCH) PATCH. TP SCH (08:45)
[2021-01-08] MEDS: fentaNYL 25MCG/HR PATCH 1 PATCH PATCH.TD72 TD SCH (08:45)
[2021-01-08] MEDS: DOCUSATE SODIUM 100 MG CAPSULE. PO SCH ×2 (08:46→21:35)
[2021-01-08] MEDS: SERTRALINE 50 MG TABLET. PO SCH (08:46)
[2021-01-08] MEDS: PANTOPRAZOLE 40 MG TABLET.DR. PO SCH (08:46)
[2021-01-08] MEDS: ASCORBIC ACID 500 MG TABLET PO SCH (08:46)
[2021-01-08] MEDS: ASPIRIN CHEWABLE 81 MG TABLET. PO SCH (08:46)
[2021-01-08] MEDS: PREGABALIN 50 MG CAPSULE PO SCH ×2 (08:46→21:35)
[2021-01-08] MEDS: CHOLECALCIFEROL (VITAMIN D3) 1,000 UNIT TABLET PO SCH (08:46)
[2021-01-08] MEDS: HYDROXYCHLOROQUINE 200 MG TABLET PO SCH ×2 (08:46→21:35)
[2021-01-08] MEDS: METOPROLOL SUCC 24HR ER 50 MG TAB.ER.24H. PO SCH (08:46)
[2021-01-08] MEDS: rOPINIRole 1 MG TABLET. PO SCH ×3 (08:47→21:35)
[2021-01-08] MEDS: predniSONE 20 MG TABLET PO SCH (08:47)
--- NOTE | 2021-01-08 08:55 | PDOC ---
PULMONARY PROGRESS NOTES DATE: 01/08/21 TIME: 08:55 Subjective Patient not more short of air, feels better. Vitals Vital Signs Date Time Temp Pulse Resp B/P (MAP) Pulse Ox O2 Delivery O2 Flow Rate FiO2 01/08/21 08:46 84 127/69 01/08/21 07:46 95 Nasal Cannula 3.0 01/08/21 07:00 98.2 18 98.2 ROS: No Nausea, No Chest Pain, No Abdominal Pain, No Increase Cough General: Alert Lungs: Clear Cardiovascular: S1, S2 Abdomen: Soft Neuro Exam: Alert Extremities: No Edema Skin: Warm (All nothing recently showedFor further dayMedication oral antibiotic due to upset or having any challenges just except what they sayInfected were done just this Gotto just got off the phoneHis girlfriend is) Labs Laboratory Tests Test 01/06/21 11:53 01/06/21 17:13 01/06/21 20:15 01/07/21 04:45 Glucose (Fingerstick) 135 mg/dL (70-99) 119 mg/dL (70-99) 89 mg/dL (70-99) White Blood Count 14.3 x10^3/uL (4.0-11.0) Red Blood Count 4.16 x10^6/uL (3.50-5.40) Hemoglobin 10.3 g/dL (12.0-15.5) Hematocrit 34.2 % (36.0-47.0) Mean Corpuscular Volume 82 fL (79-100) Mean Corpuscular Hemoglobin 25 pg (25-35) Mean Corpuscular Hemoglobin Concent 30 g/dL (31-37) Red Cell Distribution Width 16.0 % (11.5-14.5) Platelet Count 483 x10^3/uL (140-400) Neutrophils (%) (Auto) 89 % (31-73) Lymphocytes (%) (Auto) 7 % (24-48) Monocytes (%) (Auto) 4 % (0-9) Eosinophils (%) (Auto) 0 % (0-3) Basophils (%) (Auto) 0 % (0-3) Neutrophils # (Auto) 12.7 x10^3/uL (1.8-7.7) Lymphocytes # (Auto) 1.0 x10^3/uL (1.0-4.8) Monocytes # (Auto) 0.6 x10^3/uL (0.0-1.1) Eosinophils # (Auto) 0.0 x10^3/uL (0.0-0.7) Basophils # (Auto) 0.0 x10^3/uL (0.0-0.2) Sodium Level 135 mmol/L (136-145) Potassium Level 4.6 mmol/L (3.5-5.1) Chloride Level 91 mmol/L (98-107) Carbon Dioxide Level 37 mmol/L (21-32) Anion Gap 7 (6-14) Blood Urea Nitrogen 47 mg/dL (7-20) Creatinine 1.1 mg/dL (0.6-1.0) Estimated GFR (Cockcroft-Gault) 46.8 Glucose Level 124 mg/dL (70-99) Calcium Level 8.9 mg/dL (8.5-10.1) Test 01/07/21 07:34 01/07/21 11:42 01/07/21 16:56 01/07/21 20:43 Glucose (Fingerstick) 87 mg/dL (70-99) 147 mg/dL (70-99) 155 mg/dL (70-99) 170 mg/dL (70-99) Test 01/08/21 07:23 Glucose (Fingerstick) 108 mg/dL (70-99) Laboratory Tests Test 01/07/21 11:42 01/07/21 16:56 01/07/21 20:43 01/08/21 07:23 Glucose (Fingerstick) 147 mg/dL (70-99) 155 mg/dL (70-99) 170 mg/dL (70-99) 108 mg/dL (70-99) Medications Active Scripts Medications Dose Route/Sig Max Daily Dose Days Date Category Dose Instructions Klor-Con M20 (Potassium Chloride) 20 Meq Tab.er.prt 1 Tab PO DAILY 30 06/12/20 Rx Prednisone (Prednisone) 10 Mg Tablet 20 Mg PO DAILY 06/12/20 Rx Bumetanide 1 Mg Tablet 1 Mg PO DAILY 06/12/20 Rx Metoprolol Succinate ( Xl ) (Metoprolol Succinate) 25 Mg Tab.er.24h 25 Mg PO DAILY 06/12/20 Rx Sertraline Hcl 100 Mg Tablet 100 Mg PO DAILY 06/10/20 Reported Miralax (Polyethylene Glycol 3350) 17 Gm Powd.pack 1 Packet PO DAILY PRN 2 06/10/20 Reported dissolve in water Nystatin 1 Each Powder.ea. 1 Each MC BID 06/10/20 Reported Melatonin 5 Mg Tab.rapdis 1 Tab PO QHS 30 06/10/20 Reported Lidocaine PATCH (Lidocaine) 1 Each Adh..patch 1 Each TP DAILY 06/10/20 Reported REMOVE AFTER 12 HOURS Cymbalta (Duloxetine Hcl) 60 Mg Capsule.dr 1 Cap PO DAILY 06/10/20 Reported Colace (Docusate Sodium) 100 Mg Capsule 1 Cap PO BID 30 06/10/20 Reported Albuterol Sulfate Neb Soln (Albuterol Sulfate) 2.5 Mg/3 Ml Vial.neb 1 Vial NEB PRN Q4HRS 06/10/20 Reported Advair 250-50 Diskus (Fluticasone/Salmeterol) 1 Each Disk.w.dev 1 Puff IH BID 06/10/20 Reported Aspirin 81 Mg Tab.chew 81 Mg PO DAILY 07/15/19 Rx Ropinirole Hcl 1 Mg Tablet 1 Mg PO TID 07/15/19 Rx Alprazolam 0.5 Mg Tablet 0.5 Mg PO BID 07/15/19 Rx FENTANYL 12mcg/hr (Fentanyl) 1 Each Patch.td72 1 Patch TP Q3DAYS 01/23/19 Rx Lyrica (Pregabalin) 50 Mg Capsule 1 Cap PO BID 01/23/19 Rx Pantoprazole Sodium (Pantoprazole Sodium) 40 Mg Tablet.dr 40 Mg PO DAILY 01/13/19 Rx Hydrocodone-Apap 5-325 (Hydrocodone Bit/Acetaminophen) 1 Tab Tablet 1 Tab PO PRN Q8HRS PRN 01/13/19 Rx Vitamin D (Cholecalciferol (Vitamin D3)) 1,000 Unit Capsule 1 Cap PO DAILY 06/24/17 Reported Impression . IMPRESSION: 1. Acute on chronic respiratory failure, multifactorial. 2. Acute on chronic heart failure, diastolic. 3. Secondary pulmonary hypertension, pulmonary artery pressure measured at 40 mmHg. 4. 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 5. Acute exacerbation of chronic obstructive pulmonary disease. 6. Possible pneumonia. . Acute renal insufficiency Plan . Updated 01/08 Bumex on hold Patient discharge in a.m. if renal function is better Respiratory status has improved updated 01/07 Patient feels better, suspect most of her symptoms were related to pulmonary edema Discontinue antibiotics Taper prednisone Possible discharge in the a.m. Updated 01/06 Patient improving Continue diuresis Follow cardiology input Oxygen supplementation MEDINA PAYNE MD Jan 08, 2021 08:55
[2021-01-08 10:12] VITALS: BP 107/53
--- NOTE | 2021-01-08 11:00 | PDOC ---
PROGRESS NOTES Date of Service DATE: 01/08/21 TIME: 10:57 Subjective Subjective not short of breath. feels better Objective Objective Vital Signs Date Time Temp Pulse Resp B/P (MAP) Pulse Ox O2 Delivery O2 Flow Rate FiO2 01/08/21 10:12 97.7 85 18 107/53 (71) 93 Nasal Cannula 3.0 97.7 Intake and Output 01/08/21 07:00 Intake Total 450 ml Output Total 750 ml Balance -300 ml Intake Oral 450 ml Output Urine Total 750 ml Physical Exam Abdomen: Soft Heart: Regular rate, Normal S1, Normal S2 Extremities: No edema General: Alert HEENT: Atraumatic Lungs: Other (few crakcles RLL old) Neuro: Normal speech Psych/Mental Status: Mental status NL Skin: No rashes Assessment Assessment ProblemsAcute on chronic diastolic congestive heart failure. compensated 2. Leukocytosis. better 3. Acute bronchitis, possible RLL pneumonia. 4. Chronic obstructive pulmonary disease. with acute exacerbation 5. Acute on chronic hypoxic respiratory failure. 6. Diabetes mellitus type 2, treated with diet. 7. Hypertension. 8. Hyperlipidemia. 9. Hyperkalemia.resolved 10. Anemia of chronic disease 11. Severe protein-calorie malnutrition. 12. no aortic stenosis on recent echo 13. Restless leg syndrome. 14. Debility. pre renal azotemia Medical Problems: (1) Pressure ulcer of coccygeal region Status: Acute (2) Pulmonary edema Status: Acute (3) Shortness of breath Status: Acute Plan Plan of Care hold bumex continue prednisone off rocephin check labs tomorrow dismiss tomorrow pending renal function Comment Review of Relevant I have reviewed the following items lizbeth (where applicable) has been applied. Labs Laboratory Tests Test 01/06/21 11:53 01/06/21 17:13 01/06/21 20:15 01/07/21 04:45 Glucose (Fingerstick) 135 mg/dL (70-99) 119 mg/dL (70-99) 89 mg/dL (70-99) White Blood Count 14.3 x10^3/uL (4.0-11.0) Red Blood Count 4.16 x10^6/uL (3.50-5.40) Hemoglobin 10.3 g/dL (12.0-15.5) Hematocrit 34.2 % (36.0-47.0) Mean Corpuscular Volume 82 fL (79-100) Mean Corpuscular Hemoglobin 25 pg (25-35) Mean Corpuscular Hemoglobin Concent 30 g/dL (31-37) Red Cell Distribution Width 16.0 % (11.5-14.5) Platelet Count 483 x10^3/uL (140-400) Neutrophils (%) (Auto) 89 % (31-73) Lymphocytes (%) (Auto) 7 % (24-48) Monocytes (%) (Auto) 4 % (0-9) Eosinophils (%) (Auto) 0 % (0-3) Basophils (%) (Auto) 0 % (0-3) Neutrophils # (Auto) 12.7 x10^3/uL (1.8-7.7) Lymphocytes # (Auto) 1.0 x10^3/uL (1.0-4.8) Monocytes # (Auto) 0.6 x10^3/uL (0.0-1.1) Eosinophils # (Auto) 0.0 x10^3/uL (0.0-0.7) Basophils # (Auto) 0.0 x10^3/uL (0.0-0.2) Sodium Level 135 mmol/L (136-145) Potassium Level 4.6 mmol/L (3.5-5.1) Chloride Level 91 mmol/L (98-107) Carbon Dioxide Level 37 mmol/L (21-32) Anion Gap 7 (6-14) Blood Urea Nitrogen 47 mg/dL (7-20) Creatinine 1.1 mg/dL (0.6-1.0) Estimated GFR (Cockcroft-Gault) 46.8 Glucose Level 124 mg/dL (70-99) Calcium Level 8.9 mg/dL (8.5-10.1) Test 01/07/21 07:34 01/07/21 11:42 01/07/21 16:56 01/07/21 20:43 Glucose (Fingerstick) 87 mg/dL (70-99) 147 mg/dL (70-99) 155 mg/dL (70-99) 170 mg/dL (70-99) Test 01/08/21 07:23 Glucose (Fingerstick) 108 mg/dL (70-99) Laboratory Tests Test 01/07/21 11:42 01/07/21 16:56 01/07/21 20:43 01/08/21 07:23 Glucose (Fingerstick) 147 mg/dL (70-99) 155 mg/dL (70-99) 170 mg/dL (70-99) 108 mg/dL (70-99) Microbiology 01/04/21 Blood Culture - Preliminary, Resulted NO GROWTH AFTER 3 DAYS Medications Current Medications Albuterol/ Ipratropium (Duoneb) 3 ml 1X ONCE NEB Last administered on 01/04/21at 10:43; Start 01/04/21 at 10:30; Stop 01/04/21 at 10:38; Status DC Albuterol/ Ipratropium (Duoneb) 3 ml STK-MED ONCE .ROUTE ; Start 01/04/21 at 10:38; Stop 01/04/21 at 10:39; Status DC Furosemide (Lasix) 40 mg 1X ONCE IVP Last administered on 01/04/21at 16:00; Start 01/04/21 at 13:00; Stop 01/04/21 at 13:01; Status DC Albuterol Sulfate (Ventolin Neb Soln) 2.5 mg PRN Q4HRS PRN NEB SHORTNESS OF BREATH; Start 01/04/21 at 15:30 Alprazolam (Xanax) 0.5 mg BID PO Last administered on 01/08/21at 08:45; Start 01/04/21 at 21:00 Aspirin (Aspirin Chewable) 81 mg DAILY PO Last administered on 01/08/21at 08:46; Start 01/05/21 at 09:00 Bumetanide (Bumex) 1 mg DAILY PO ; Start 01/05/21 at 09:00; Stop 01/04/21 at 16:28; Status DC Docusate Sodium (Colace) 100 mg BID PO Last administered on 01/08/21at 08:46; Start 01/04/21 at 21:00 Fentanyl (Duragesic 12mcg/ Hr Patch) 1 patch Q3DAYS TD ; Start 01/07/21 at 09:00; Stop 01/04/21 at 16:28; Status DC Acetaminophen/ Hydrocodone Bitart (Lortab 5/325) 1 tab PRN Q8HRS PRN PO MODERATE PAIN; Start 01/04/21 at 15:30; Stop 01/04/21 at 16:37; Status DC Lidocaine (Lidoderm) 1 patch DAILY TP Last administered on 01/08/21 08:45; St art 01/04/21 at 16:00 Metoprolol Succinate (Toprol Xl) 25 mg DAILY PO ; Start 01/05/21 at 09:00; Stop 01/04/21 at 17:15; Status DC Pantoprazole Sodium (Protonix) 40 mg DAILYAC PO Last administered on 01/08/21 08:46; Start 01/05/21 at 07:30 Polyethylene Glycol (miraLAX PACKET) 17 gm PRN DAILY PRN PO CONSTIPATION Last administered on 01/06/21 08:59; Start 01/04/21 at 15:30 Prednisone (Prednisone) 20 mg DAILY PO ; Start 01/05/21 at 09:00; Stop 01/04/21 at 16:28; Status DC Pregabalin (Lyrica) 50 mg BID PO Last administered on 01/08/21 08:46; Start 01/04/21 at 21:00 Ropinirole HCl (Requip) 1 mg TID PO ; Start 01/04/21 at 16:00; Stop 01/04/21 at 16:28; Status DC Vitamin D (Vitamin D3) 1,000 unit DAILY PO Last administered on 01/08/21 08:46; Start 01/05/21 at 09:00 Duloxetine HCl (Cymbalta) 60 mg DAILY PO Last administered on 01/08/21 08:45; Start 01/05/21 at 09:00 Non-Formulary Medication (Fluticasone/ Salmeterol (Advair 250-50 Diskus)) 1 puff BID IH ; Start 01/04/21 at 21:00; Status UNV Non-Formulary Medication (Melatonin ) 1 tab QHS PO ; Start 01/04/21 at 21:00; Status UNV Nystatin (Nystop) 1 shady BID TP Last administered on 01/08/21 08:45; Start 01/04/21 at 21:00 Sertraline HCl (Zoloft) 100 mg DAILY PO Last administered on 01/08/21 08:46; Start 01/05/21 at 09:00 Miscellaneous (Lidoderm Patch Removal) 1 ea QHS MC Last administered on 12/2/21at 21:00; Start 01/04/21 at 21:00 Albuterol Sulfate (Ventolin Neb Soln) 2.5 mg Q6HRS NEB ; Start 01/04/21 at 18:00; Stop 01/05/21 at 09:59; Status DC Budesonide (Pulmicort) 0.5 mg RTBID NEB Last administered on 01/08/21 07:45; Start 01/04/21 at 20:00 Fentanyl (Duragesic 25mcg/ Hr Patch) 1 patch Q3DAYS TD ; Start 01/04/21 at 17:00; Stop 01/05/21 at 12:02; Status DC Acetaminophen/ Hydrocodone Bitart (Lortab 5/325) 1 tab PRN Q4HRS PRN PO PAIN; Start 01/04/21 at 16:15; Stop 01/04/21 at 16:42; Status DC Ropinirole HCl (Requip) 2 mg TID PO Last administered on 01/08/21at 08:47; Start 01/04/21 at 21:00 Albuterol/ Ipratropium (Duoneb) 3 ml RTQID NEB Last administered on 01/08/21 07:45; Start 01/04/21 at 20:00 Hydroxychloroquine Sulfate (Plaquenil) 200 mg BID PO Last administered on 01/08/21 08:46; Start 01/04/21 at 21:00 Al Hydroxide/Mg Hydroxide (Mylanta Plus Xs) 30 ml PRN Q2HR PRN PO HEARTBURN / GAS; Start 01/04/21 at 16:15 Heparin Sodium (Porcine) (Heparin Sodium) 5,000 unit Q12HR SQ Last administered on 01/05/21at 08:18; Start 01/04/21 at 21:00; Stop 01/05/21 at 09:59; Status DC Methylprednisolone Sodium Succinate (SOLU-Medrol 40MG VIAL) 40 mg Q12HR IV Last administered on 01/07/21at 09:18; Start 01/04/21 at 21:00; Stop 01/07/21 at 13:46; Status DC Insulin Human Lispro (HumaLOG) 0-6 UNITS BG 300-39... TIDWMEALS SQ Last administered on 01/07/21at 17:12; Start 01/04/21 at 17:00 Furosemide (Lasix) 40 mg DAILY IVP Last administered on 01/06/21at 09:06; Start 01/05/21 at 09:00; Stop 01/06/21 at 10:28; Status DC Sertraline HCl (Zoloft) 100 mg DAILY PO ; Start 01/05/21 at 09:00; Stop 01/04/21 at 16:37; Status DC Zolpidem Tartrate (Ambien) 5 mg PRN QHS PRN PO INSOMNIA Last administered on 01/06/21at 21:11; Start 01/04/21 at 16:15 Vitamin D (Vitamin D3) 1,000 unit DAILY PO ; Start 01/05/21 at 09:00; Status UNV Ceftriaxone Sodium (Rocephin) 1 gm Q24H IVP Last administered on 01/06/21at 17:50; Start 01/04/21 at 17:00; Stop 01/07/21 at 13:46; Status DC Metoprolol Succinate (Toprol Xl) 50 mg DAILY PO Last administered on 01/08/21at 08:46; Start 01/05/21 at 09:00 Metoprolol Succinate (Toprol Xl) 25 mg 1X ONCE PO Last administered on 01/04/21at 19:00; Start 01/04/21 at 17:30; Stop 01/04/21 at 17:31; Status DC Albuterol Sulfate (Ventolin Neb Soln) 2.5 mg QID NEB ; Start 01/05/21 at 13:00; Stop 01/06/21 at 10:04; Status DC Heparin Sodium (Porcine) (Heparin Sodium) 5,000 unit Q12HR SQ Last administered on 01/08/21at 08:04; Start 01/05/21 at 21:00 Fentanyl (Duragesic 25mcg/ Hr Patch) 1 patch Q3DAYS TD Last administered on 01/08/21at 08:45; Start 01/05/21 at 12:00 Bumetanide (Bumex) 1 mg DAILY PO Last administered on 01/07/21at 09:17; Start 01/07/21 at 09:00; Stop 01/07/21 at 10:56; Status DC Multivitamins (Thera M Plus) 1 tab DAILY PO Last administered on 01/08/21at 08:45; Start 01/07/21 at 09:00 Ascorbic Acid (Vitamin C) 500 mg DAILY PO Last administered on 01/08/21at 08:46; Start 01/07/21 at 09:00 Prednisone (Prednisone) 20 mg DAILY PO Last administered on 01/08/21at 08:47; Start 01/08/21 at 09:00 Acetaminophen (Tylenol) 650 mg PRN Q6HRS PRN PO MILD PAIN / TEMP > 100.3'F Last administered on 01/08/21at 02:35; Start 01/08/21 at 02:30 Active Scripts Active Klor-Con M20 (Potassium Chloride) 20 Meq Tab.er.prt 1 Tab PO DAILY 30 Days Prednisone (Prednisone) 10 Mg Tablet 20 Mg PO DAILY Bumetanide 1 Mg Tablet 1 Mg PO DAILY Metoprolol Succinate ( Xl ) (Metoprolol Succinate) 25 Mg Tab.er.24h 25 Mg PO DAILY Aspirin 81 Mg Tab.chew 81 Mg PO DAILY Ropinirole Hcl 1 Mg Tablet 1 Mg PO TID Alprazolam 0.5 Mg Tablet 0.5 Mg PO BID FENTANYL 12mcg/hr (Fentanyl) 1 Each Patch.td72 1 Patch TP Q3DAYS Lyrica (Pregabalin) 50 Mg Capsule 1 Cap PO BID Pantoprazole Sodium (Pantoprazole Sodium) 40 Mg Tablet.dr 40 Mg PO DAILY Hydrocodone-Apap 5-325 (Hydrocodone Bit/Acetaminophen) 1 Tab Tablet 1 Tab PO PRN Q8HRS PRN Reported Sertraline Hcl 100 Mg Tablet 100 Mg PO DAILY Miralax (Polyethylene Glycol 3350) 17 Gm Powd.pack 1 Packet PO DAILY PRN 2 Days dissolve in water Nystatin 1 Each Powder.ea. 1 Each MC BID Melatonin 5 Mg Tab.rapdis 1 Tab PO QHS 30 Days Lidocaine PATCH (Lidocaine) 1 Each Adh..patch 1 Each TP DAILY REMOVE AFTER 12 HOURS Cymbalta (Duloxetine Hcl) 60 Mg Capsule. 1 Cap PO DAILY Colace (Docusate Sodium) 100 Mg Capsule 1 Cap PO BID 30 Days Albuterol Sulfate Neb Soln (Albuterol Sulfate) 2.5 Mg/3 Ml Vial.neb 1 Vial NEB PRN Q4HRS Advair 250-50 Diskus (Fluticasone/Salmeterol) 1 Each Disk.w.dev 1 Puff IH BID Vitamin D (Cholecalciferol (Vitamin D3)) 1,000 Unit Capsule 1 Cap PO DAILY Vitals/I & O Vital Sign - Last 24 Hours 01/07/21 01/07/21 01/07/21 01/07/21 11:00 12:29 15:00 16:58 Temp 97.9 98.0 97.9 98.0 Pulse 86 88 Resp 20 18 B/P (MAP) 108/56 (73) 100/49 (66) Pulse Ox 94 92 O2 Delivery Nasal Cannula Nasal Cannula Nasal Cannula Nasal Cannula O2 Flow Rate 3.0 3.0 3.0 3.0 01/07/21 01/07/21 01/07/21 01/07/21 19:36 19:44 20:03 22:29 Temp 98.0 98.1 98.0 98.1 Pulse 103 87 Resp 18 18 B/P (MAP) 112/51 (71) 103/50 (67) Pulse Ox 94 95 94 O2 Delivery Nasal Cannula Nasal Cannula Nasal Cannula Nasal Cannula O2 Flow Rate 3.0 3.0 3.0 3.0 01/08/21 01/08/21 01/08/21 01/08/21 02:09 07:00 07:46 08:00 Temp 98.2 98.2 98.2 98.2 Pulse 78 84 Resp 18 18 B/P (MAP) 98/67 (77) 127/69 (88) Pulse Ox 94 95 95 O2 Delivery Nasal Cannula Nasal Cannula Nasal Cannula Nasal Cannula O2 Flow Rate 3.0 3.0 3.0 3.0 01/08/21 01/08/21 08:46 10:12 Temp 97.7 97.7 Pulse 84 85 Resp 18 B/P (MAP) 127/69 107/53 (71) Pulse Ox 93 O2 Delivery Nasal Cannula O2 Flow Rate 3.0 Intake and Output 01/07/21 01/07/21 01/08/21 15:00 23:00 07:00 Intake Total 350 ml 100 ml Output Total 300 ml 450 ml Balance 350 ml -300 ml -350 ml Justifications for Admission Other Justification Nutrition Consultation Dietary Evaluation: Recommendations by RD: Dietary education by RD, Protein supplementation Comments: ADA/cardiac diet glucerna tid REC mvi and vit c per wound protocal- discussed with TAMAR Woods Expected Outcomes/Goals: to meet >75% est nutr needs improved wound status Malnutrition Findings: Food and Nutrition Intake (Sev: <50% est energy req 5days Weight Status: Obese Fluid Accumulation (Severe): Severe KARAN KIMBLE MD Jan 08, 2021 11:00
--- NOTE | 2021-01-08 11:59 | NUR ---
SS following up with discharge planning. SS reviewed pt chart and discussed with pt RN. Pt is currently requiring oxygen at three liters nasal canula. COVID19 negative. Pt has home oxygen. Pt has had [facility], ; fax [phone]. Pt lives at home with caregiver. Pt will need transportation to home when medically appropriate for discharge. Referral sent to [facility], ; fax [phone]. Pt will need transportation to home at discharge. Pt's RN notified. SS will continue to follow for discharge planning.
[2021-01-08 14:39] VITALS: BP 127/58
--- NOTE | 2021-01-08 16:40 | PDOC ---
PROGRESS NOTES Date of Service DATE: 01/08/21 TIME: 16:37 Subjective Subjective Patient seen and examined She is feeling better today. Objective Objective Vital Signs Date Time Temp Pulse Resp B/P (MAP) Pulse Ox O2 Delivery O2 Flow Rate FiO2 01/08/21 15:22 95 Nasal Cannula 3.0 01/08/21 14:39 98.1 84 18 127/58 (81) 98.1 Intake and Output 01/08/21 07:00 Intake Total 450 ml Output Total 750 ml Balance -300 ml Intake Oral 450 ml Output Urine Total 750 ml Physical Exam Abdomen: Normal bowel sounds General: mild distress Lungs: Other (Mildly decreased breath sounds) Assessment Assessment Problems Medical Problems: (1) Pressure ulcer of coccygeal region Status: Acute (2) Pulmonary edema Status: Acute (3) Shortness of breath Status: Acute Acute on chronic diastolic CHF: Echo with preserved LV systolic function. Improved today. Recheck of labs in the morning. AECOPD with possible pneumonia: SOA better Hypertension; controlled CAD; Moderate disease to RCA per [facility] in 2019. Recent MPI with no reversible ischemia or infarct. Diabetes, II. Hyperlipidemia PPM with SSS: Hwang. SR with chronic LBBB Moderate Hyperkalemia: resolved. Recheck of lab in the morning. Comment Review of Relevant I have reviewed the following items lizbeth (where applicable) has been applied. Labs Laboratory Tests Test 01/06/21 17:13 01/06/21 20:15 01/07/21 04:45 01/07/21 07:34 Glucose (Fingerstick) 119 mg/dL (70-99) 89 mg/dL (70-99) 87 mg/dL (70-99) White Blood Count 14.3 x10^3/uL (4.0-11.0) Red Blood Count 4.16 x10^6/uL (3.50-5.40) Hemoglobin 10.3 g/dL (12.0-15.5) Hematocrit 34.2 % (36.0-47.0) Mean Corpuscular Volume 82 fL (79-100) Mean Corpuscular Hemoglobin 25 pg (25-35) Mean Corpuscular Hemoglobin Concent 30 g/dL (31-37) Red Cell Distribution Width 16.0 % (11.5-14.5) Platelet Count 483 x10^3/uL (140-400) Neutrophils (%) (Auto) 89 % (31-73) Lymphocytes (%) (Auto) 7 % (24-48) Monocytes (%) (Auto) 4 % (0-9) Eosinophils (%) (Auto) 0 % (0-3) Basophils (%) (Auto) 0 % (0-3) Neutrophils # (Auto) 12.7 x10^3/uL (1.8-7.7) Lymphocytes # (Auto) 1.0 x10^3/uL (1.0-4.8) Monocytes # (Auto) 0.6 x10^3/uL (0.0-1.1) Eosinophils # (Auto) 0.0 x10^3/uL (0.0-0.7) Basophils # (Auto) 0.0 x10^3/uL (0.0-0.2) Sodium Level 135 mmol/L (136-145) Potassium Level 4.6 mmol/L (3.5-5.1) Chloride Level 91 mmol/L (98-107) Carbon Dioxide Level 37 mmol/L (21-32) Anion Gap 7 (6-14) Blood Urea Nitrogen 47 mg/dL (7-20) Creatinine 1.1 mg/dL (0.6-1.0) Estimated GFR (Cockcroft-Gault) 46.8 Glucose Level 124 mg/dL (70-99) Calcium Level 8.9 mg/dL (8.5-10.1) Test 01/07/21 11:42 01/07/21 16:56 01/07/21 20:43 01/08/21 07:23 Glucose (Fingerstick) 147 mg/dL (70-99) 155 mg/dL (70-99) 170 mg/dL (70-99) 108 mg/dL (70-99) Test 01/08/21 11:34 01/08/21 16:36 Glucose (Fingerstick) 111 mg/dL (70-99) 168 mg/dL (70-99) Laboratory Tests Test 01/07/21 16:56 01/07/21 20:43 01/08/21 07:23 01/08/21 11:34 Glucose (Fingerstick) 155 mg/dL (70-99) 170 mg/dL (70-99) 108 mg/dL (70-99) 111 mg/dL (70-99) Test 01/08/21 16:36 Glucose (Fingerstick) 168 mg/dL (70-99) Microbiology 01/04/21 Blood Culture - Preliminary, Resulted NO GROWTH AFTER 4 DAYS Medications Current Medications Albuterol/ Ipratropium (Duoneb) 3 ml 1X ONCE NEB Last administered on 01/04/21at 10:43; Start 01/04/21 at 10:30; Stop 01/04/21 at 10:38; Status DC Albuterol/ Ipratropium (Duoneb) 3 ml STK-MED ONCE .ROUTE ; Start 01/04/21 at 10:38; Stop 01/04/21 at 10:39; Status DC Furosemide (Lasix) 40 mg 1X ONCE IVP Last administered on 01/04/21at 16:00; Start 01/04/21 at 13:00; Stop 01/04/21 at 13:01; Status DC Albuterol Sulfate (Ventolin Neb Soln) 2.5 mg PRN Q4HRS PRN NEB SHORTNESS OF BREATH; Start 01/04/21 at 15:30 Alprazolam (Xanax) 0.5 mg BID PO Last administered on 01/08/21at 08:45; Start 01/04/21 at 21:00 Aspirin (Aspirin Chewable) 81 mg DAILY PO Last administered on 01/08/21at 08:46; Start 01/05/21 at 09:00 Bumetanide (Bumex) 1 mg DAILY PO ; Start 01/05/21 at 09:00; Stop 01/04/21 at 16:28; Status DC Docusate Sodium (Colace) 100 mg BID PO Last administered on 01/08/21at 08:46; Start 01/04/21 at 21:00 Fentanyl (Duragesic 12mcg/ Hr Patch) 1 patch Q3DAYS TD ; Start 01/07/21 at 09:00; Stop 01/04/21 at 16:28; Status DC Acetaminophen/ Hydrocodone Bitart (Lortab 5/325) 1 tab PRN Q8HRS PRN PO MODERATE PAIN; Start 01/04/21 at 15:30; Stop 01/04/21 at 16:37; Status DC Lidocaine (Lidoderm) 1 patch DAILY TP Last administered on 01/08/21at 08:45; Start 01/04/21 at 16:00 Metoprolol Succinate (Toprol Xl) 25 mg DAILY PO ; Start 01/05/21 at 09:00; Stop 01/04/21 at 17:15; Status DC Pantoprazole Sodium (Protonix) 40 mg DAILYAC PO Last administered on 01/08/21 08:46; Start 01/05/21 at 07:30 Polyethylene Glycol (miraLAX PACKET) 17 gm PRN DAILY PRN PO CONSTIPATION Last administered on 01/06/21at 08:59; Start 01/04/21 at 15:30 Prednisone (Prednisone) 20 mg DAILY PO ; Start 01/05/21 at 09:00; Stop 01/04/21 at 16:28; Status DC Pregabalin (Lyrica) 50 mg BID PO Last administered on 01/08/21 08:46; Start 01/04/21 at 21:00 Ropinirole HCl (Requip) 1 mg TID PO ; Start 01/04/21 at 16:00; Stop 01/04/21 at 16:28; Status DC Vitamin D (Vitamin D3) 1,000 unit DAILY PO Last administered on 01/08/21 08:46; Start 01/05/21 at 09:00 Duloxetine HCl (Cymbalta) 60 mg DAILY PO Last administered on 01/08/21at 08:45; Start 01/05/21 at 09:00 Non-Formulary Medication (Fluticasone/ Salmeterol (Advair 250-50 Diskus)) 1 puff BID IH ; Start 01/04/21 at 21:00; Status UNV Non-Formulary Medication (Melatonin ) 1 tab QHS PO ; Start 01/04/21 at 21:00; Status UNV Nystatin (Nystop) 1 shady BID TP Last administered on 01/08/21 08:45; Start 01/04/21 at 21:00 Sertraline HCl (Zoloft) 100 mg DAILY PO Last administered on 01/08/21 08:46; Start 01/05/21 at 09:00 Miscellaneous (Lidoderm Patch Removal) 1 ea QHS MC Last administered on 01/07/21at 21:00; Start 01/04/21 at 21:00 Albuterol Sulfate (Ventolin Neb Soln) 2.5 mg Q6HRS NEB ; Start 01/04/21 at 18:00; Stop 01/05/21 at 09:59; Status DC Budesonide (Pulmicort) 0.5 mg RTBID NEB Last administered on 01/08/21at 07:45; Start 01/04/21 at 20:00 Fentanyl (Duragesic 25mcg/ Hr Patch) 1 patch Q3DAYS TD ; Start 01/04/21 at 17:00; Stop 01/05/21 at 12:02; Status DC Acetaminophen/ Hydrocodone Bitart (Lortab 5/325) 1 tab PRN Q4HRS PRN PO PAIN; Start 01/04/21 at 16:15; Stop 01/04/21 at 16:42; Status DC Ropinirole HCl (Requip) 2 mg TID PO Last administered on 01/08/21at 12:52; Start 01/04/21 at 21:00 Albuterol/ Ipratropium (Duoneb) 3 ml RTQID NEB Last administered on 01/08/21at 15:21; Start 01/04/21 at 20:00 Hydroxychloroquine Sulfate (Plaquenil) 200 mg BID PO Last administered on 01/08/21at 08:46; Start 01/04/21 at 21:00 Al Hydroxide/Mg Hydroxide (Mylanta Plus Xs) 30 ml PRN Q2HR PRN PO HEARTBURN / GAS; Start 01/04/21 at 16:15 Heparin Sodium (Porcine) (Heparin Sodium) 5,000 unit Q12HR SQ Last administered on 01/05/21at 08:18; Start 01/04/21 at 21:00; Stop 01/05/21 at 09:59; Status DC Methylprednisolone Sodium Succinate (SOLU-Medrol 40MG VIAL) 40 mg Q12HR IV Last administered on 01/07/21at 09:18; Start 01/04/21 at 21:00; Stop 01/07/21 at 13:46; Status DC Insulin Human Lispro (HumaLOG) 0-6 UNITS BG 300-39... TIDWMEALS SQ Last administered on 01/07/21at 17:12; Start 01/04/21 at 17:00 Furosemide (Lasix) 40 mg DAILY IVP Last administered on 01/06/21at 09:06; Start 01/05/21 at 09:00; Stop 01/06/21 at 10:28; Status DC Sertraline HCl (Zoloft) 100 mg DAILY PO ; Start 01/05/21 at 09:00; Stop 01/04/21 at 16:37; Status DC Zolpidem Tartrate (Ambien) 5 mg PRN QHS PRN PO INSOMNIA Last administered on 01/06/21at 21:11; Start 01/04/21 at 16:15 Vitamin D (Vitamin D3) 1,000 unit DAILY PO ; Start 01/05/21 at 09:00; Status UNV Ceftriaxone Sodium (Rocephin) 1 gm Q24H IVP Last administered on 01/06/21at 17:50; Start 01/04/21 at 17:00; Stop 01/07/21 at 13:46; Status DC Metoprolol Succinate (Toprol Xl) 50 mg DAILY PO Last administered on 01/08/21at 08:46; Start 01/05/21 at 09:00 Metoprolol Succinate (Toprol Xl) 25 mg 1X ONCE PO Last administered on 01/04/21at 19:00; Start 01/04/21 at 17:30; Stop 01/04/21 at 17:31; Status DC Albuterol Sulfate (Ventolin Neb Soln) 2.5 mg QID NEB ; Start 01/05/21 at 13:00; Stop 01/06/21 at 10:04; Status DC Heparin Sodium (Porcine) (Heparin Sodium) 5,000 unit Q12HR SQ Last administered on 01/08/21at 08:04; Start 01/05/21 at 21:00 Fentanyl (Duragesic 25mcg/ Hr Patch) 1 patch Q3DAYS TD Last administered on 01/08/21at 08:45; Start 01/05/21 at 12:00 Bumetanide (Bumex) 1 mg DAILY PO Last administered on 01/07/21at 09:17; Start 01/07/21 at 09:00; Stop 01/07/21 at 10:56; Status DC Multivitamins (Thera M Plus) 1 tab DAILY PO Last administered on 01/08/21at 08:45; Start 01/07/21 at 09:00 Ascorbic Acid (Vitamin C) 500 mg DAILY PO Last administered on 01/08/21at 08:46; Start 12/2/21 at 09:00 Prednisone (Prednisone) 20 mg DAILY PO Last administered on 01/08/21at 08:47; Start 01/08/21 at 09:00 Acetaminophen (Tylenol) 650 mg PRN Q6HRS PRN PO MILD PAIN / TEMP > 100.3'F Last administered on 01/08/21at 02:35; Start 01/08/21 at 02:30 Active Scripts Active Klor-Con M20 (Potassium Chloride) 20 Meq Tab.er.prt 1 Tab PO DAILY 30 Days Prednisone (Prednisone) 10 Mg Tablet 20 Mg PO DAILY Bumetanide 1 Mg Tablet 1 Mg PO DAILY Metoprolol Succinate ( Xl ) (Metoprolol Succinate) 25 Mg Tab.er.24h 25 Mg PO DAILY Aspirin 81 Mg Tab.chew 81 Mg PO DAILY Ropinirole Hcl 1 Mg Tablet 1 Mg PO TID Alprazolam 0.5 Mg Tablet 0.5 Mg PO BID FENTANYL 12mcg/hr (Fentanyl) 1 Each Patch.td72 1 Patch TP Q3DAYS Lyrica (Pregabalin) 50 Mg Capsule 1 Cap PO BID Pantoprazole Sodium (Pantoprazole Sodium) 40 Mg Tablet.dr 40 Mg PO DAILY Hydrocodone-Apap 5-325 (Hydrocodone Bit/Acetaminophen) 1 Tab Tablet 1 Tab PO PRN Q8HRS PRN Reported Sertraline Hcl 100 Mg Tablet 100 Mg PO DAILY Miralax (Polyethylene Glycol 3350) 17 Gm Powd.pack 1 Packet PO DAILY PRN 2 Days dissolve in water Nystatin 1 Each Powder.ea. 1 Each MC BID Melatonin 5 Mg Tab.rapdis 1 Tab PO QHS 30 Days Lidocaine PATCH (Lidocaine) 1 Each Adh..patch 1 Each TP DAILY REMOVE AFTER 12 HOURS Cymbalta (Duloxetine Hcl) 60 Mg Capsule. 1 Cap PO DAILY Colace (Docusate Sodium) 100 Mg Capsule 1 Cap PO BID 30 Days Albuterol Sulfate Neb Soln (Albuterol Sulfate) 2.5 Mg/3 Ml Vial.neb 1 Vial NEB PRN Q4HRS Advair 250-50 Diskus (Fluticasone/Salmeterol) 1 Each Disk.w.dev 1 Puff IH BID Vitamin D (Cholecalciferol (Vitamin D3)) 1,000 Unit Capsule 1 Cap PO DAILY Vitals/I & O Vital Sign - Last 24 Hours 1201/07/21 01/07/21 01/07/21 16:58 19:36 19:44 20:03 Temp 98.0 98.0 Pulse 103 Resp 18 B/P (MAP) 112/51 (71) Pulse Ox 94 95 O2 Delivery Nasal Cannula Nasal Cannula Nasal Cannula Nasal Cannula O2 Flow Rate 3.0 3.0 3.0 3.0 01/07/21 01/08/21 01/08/21 01/08/21 22:29 02:09 07:00 07:46 Temp 98.1 98.2 98.2 98.1 98.2 98.2 Pulse 87 78 84 Resp 18 18 18 B/P (MAP) 103/50 (67) 98/67 (77) 127/69 (88) Pulse Ox 94 94 95 95 O2 Delivery Nasal Cannula Nasal Cannula Nasal Cannula Nasal Cannula O2 Flow Rate 3.0 3.0 3.0 3.0 01/08/21 01/08/21 01/08/21 01/08/21 08:00 08:46 10:12 12:00 Temp 97.7 97.7 Pulse 84 85 Resp 18 B/P (MAP) 127/69 107/53 (71) Pulse Ox 93 95 O2 Delivery Nasal Cannula Nasal Cannula Nasal Cannula O2 Flow Rate 3.0 3.0 3.0 01/08/21 01/08/21 14:39 15:22 Temp 98.1 98.1 Pulse 84 Resp 18 B/P (MAP) 127/58 (81) Pulse Ox 99 95 O2 Delivery Nasal Cannula Nasal Cannula O2 Flow Rate 3.0 3.0 Intake and Output 01/07/21 01/07/21 01/08/21 15:00 23:00 07:00 Intake Total 350 ml 100 ml Output Total 300 ml 450 ml Balance 350 ml -300 ml -350 ml Justifications for Admission Other Justification Nutrition Consultation Dietary Evaluation: Recommendations by RD: Dietary education by RD, Protein supplementation Comments: ADA/cardiac diet glucerna tid REC mvi and vit c per wound protocal- discussed with TAMAR Woods Expected Outcomes/Goals: to meet >75% est nutr needs improved wound status Malnutrition Findings: Food and Nutrition Intake (Sev: <50% est energy req 5days Weight Status: Obese Fluid Accumulation (Severe): Severe CECILIA NIXON MD Jan 08, 2021 16:39
[2021-01-08 19:10] VITALS: BP 114/51
[2021-01-08] MEDS: PATCH REMOVAL. MC SCH (21:00)
[2021-01-08 23:15] VITALS: BP 115/56
[2021-01-09 03:50] VITALS: BP 115/55
[2021-01-09 04:45] LABS: BASO % 0 % (0-3); EOS # 0.1 x10^3/uL (0.0-0.7); EOS % 1 % (0-3); HEMATOCRIT 31.3 % (36.0-47.0); HEMOGLOBIN 9.8 g/dL (12.0-15.5); LYMPH # 1.7 x10^3/uL (1.0-4.8); LYMPH % 13 % (24-48); MEAN CORPUSCULAR HEMOGLOBIN 25 pg (25-35); MEAN CORPUSCULAR HGB CONC 31 g/dL (31-37); MEAN CORPUSCULAR VOLUME 82 fL (79-100); MONO % 8 % (0-9); NEUT # 10.3 x10^3/uL (1.8-7.7); NEUT % 79 % (31-73); PLATELET COUNT 482 x10^3/uL (140-400); RED BLOOD COUNT 3.83 x10^6/uL (3.50-5.40); RED CELL DISTRIBUTION WIDTH 16.3 % (11.5-14.5); WHITE BLOOD COUNT 13.1 x10^3/uL (4.0-11.0)
[2021-01-09 04:53] LABS: CALCIUM 8.7 mg/dL (8.5-10.1); CREATININE 1.1 mg/dL (0.6-1.0); GFR 46.8
[2021-01-09 07:08] VITALS: BP 102/48
[2021-01-09] MEDS: BUDESONIDE 0.5 MG/2 ML NEBU. NEB SCH ×2 (07:19→20:10)
[2021-01-09] MEDS: IPRATRPIUM/ALBUTEROL 0.5/2.5MG 3 ML NEBU. NEB SCH ×4 (07:19→20:10)
--- NOTE | 2021-01-09 07:41 | PDOC ---
Infectious Disease Note Subjective: Subjective Patient without complaints Says feels better Vital Signs: Vital Signs Vital Signs Date Time Temp Pulse Resp B/P (MAP) Pulse Ox O2 Delivery O2 Flow Rate FiO2 01/09/21 07:23 96 Nasal Cannula 3.0 01/09/21 07:08 97.4 78 18 102/48 (66) 97.4 Physical Exam: PHYSICAL EXAM GENERAL: Alert, oriented x 3 female sitting upright in bed, on nasal O2, in no acute distress. HEENT: Normocephalic, atraumatic. Anicteric. No thrush. NECK: Supple. LUNGS: Crackles otherwise clear. HEART: S1, S2. PPM site looks clean. ABDOMEN: Soft, obese. Bowel sounds present, nontender, nondistended. EXTREMITIES: Trace edema, no cyanosis. DERMATOLOGIC: Warm, dry. Multiple bruises present, especially over both the upper extremity with some abrasions. NEUROLOGIC: Alert and oriented x 3, grossly nonfocal. PSYCHIATRIC: Calm and cooperative. Medications: Inpatient Meds: Medications reviewed. Labs: Lab Laboratory Tests Test 01/08/21 11:34 01/08/21 16:36 01/08/21 20:47 01/09/21 04:00 Glucose (Fingerstick) 111 mg/dL (70-99) 168 mg/dL (70-99) 114 mg/dL (70-99) White Blood Count 13.1 x10^3/uL (4.0-11.0) Red Blood Count 3.83 x10^6/uL (3.50-5.40) Hemoglobin 9.8 g/dL (12.0-15.5) Hematocrit 31.3 % (36.0-47.0) Mean Corpuscular Volume 82 fL (79-100) Mean Corpuscular Hemoglobin 25 pg (25-35) Mean Corpuscular Hemoglobin Concent 31 g/dL (31-37) Red Cell Distribution Width 16.3 % (11.5-14.5) Platelet Count 482 x10^3/uL (140-400) Neutrophils (%) (Auto) 79 % (31-73) Lymphocytes (%) (Auto) 13 % (24-48) Monocytes (%) (Auto) 8 % (0-9) Eosinophils (%) (Auto) 1 % (0-3) Basophils (%) (Auto) 0 % (0-3) Neutrophils # (Auto) 10.3 x10^3/uL (1.8-7.7) Lymphocytes # (Auto) 1.7 x10^3/uL (1.0-4.8) Monocytes # (Auto) 1.0 x10^3/uL (0.0-1.1) Eosinophils # (Auto) 0.1 x10^3/uL (0.0-0.7) Basophils # (Auto) 0.0 x10^3/uL (0.0-0.2) Sodium Level 139 mmol/L (136-145) Potassium Level 4.0 mmol/L (3.5-5.1) Chloride Level 94 mmol/L (98-107) Carbon Dioxide Level 40 mmol/L (21-32) Anion Gap 5 (6-14) Blood Urea Nitrogen 55 mg/dL (7-20) Creatinine 1.1 mg/dL (0.6-1.0) Estimated GFR (Cockcroft-Gault) 46.8 Glucose Level 77 mg/dL (70-99) Calcium Level 8.7 mg/dL (8.5-10.1) Test 01/09/21 07:37 Glucose (Fingerstick) 98 mg/dL (70-99) Objective: Assessment: 1. Acute hypoxic respiratory failure, combination of congestive heart failure with underlying exacerbation off chronic obstructive pulmonary disease. 2. Leukocytosis, on steroids. 3. Acute on chronic diastolic heart failure. 4. Chronic obstructive pulmonary disease exacerbation. 5. Diabetes mellitus. 6. History of aortic stenosis. 7. History of permanent pacemaker. 8. Hyperkalemia, improved. Plan: Plan of Care Monitor off abx cont supportive care EUSEBIO DARLING MD Jan 09, 2021 07:41
[2021-01-09] MEDS: INSULIN LISPRO 300 UNITS/3 ML VIAL. SQ SCH ×3 (08:00→17:25)
[2021-01-09] MEDS: DOCUSATE SODIUM 100 MG CAPSULE. PO SCH ×2 (08:54→21:21)
[2021-01-09] MEDS: HYDROXYCHLOROQUINE 200 MG TABLET PO SCH ×2 (08:54→21:21)
[2021-01-09] MEDS: rOPINIRole 1 MG TABLET. PO SCH ×3 (08:54→21:21)
[2021-01-09] MEDS: ALPRAZolam 0.5 MG TABLET PO SCH ×2 (08:55→21:21)
[2021-01-09] MEDS: CHOLECALCIFEROL (VITAMIN D3) 1,000 UNIT TABLET PO SCH (08:55)
[2021-01-09] MEDS: predniSONE 20 MG TABLET PO SCH (08:55)
[2021-01-09] MEDS: ASPIRIN CHEWABLE 81 MG TABLET. PO SCH (08:55)
[2021-01-09] MEDS: SERTRALINE 50 MG TABLET. PO SCH (08:56)
[2021-01-09] MEDS: DULoxetine HCL 30 MG CAPSULE.DR PO SCH (08:56)
[2021-01-09] MEDS: METOPROLOL SUCC 24HR ER 50 MG TAB.ER.24H. PO SCH (08:56)
[2021-01-09] MEDS: ASCORBIC ACID 500 MG TABLET PO SCH (08:57)
[2021-01-09] MEDS: LIDOCAINE (700MG/PATCH) PATCH. TP SCH (08:57)
[2021-01-09] MEDS: NYSTATIN TOPICAL POWDER 15GM BOTTLE. TP SCH ×2 (08:57→21:00)
[2021-01-09] MEDS: MULTIVITAMIN with MINERAL TABLET. PO SCH (08:57)
[2021-01-09] MEDS: PANTOPRAZOLE 40 MG TABLET.DR. PO SCH (08:57)
[2021-01-09] MEDS: PREGABALIN 50 MG CAPSULE PO SCH ×2 (08:57→21:22)
[2021-01-09] MEDS: HEPARIN for SUB-Q USE 5,000 UNIT/ML VIAL. SQ SCH ×2 (09:10→21:29)
[2021-01-09 11:00] VITALS: BP 111/56
--- NOTE | 2021-01-09 11:31 | PDOC ---
PROGRESS NOTES Date of Service DATE: 01/09/21 TIME: 11:28 Subjective Subjective bun 55 and creatinine 1.1 and bun i s higher and will start iv fluids cautiously. not short of breath. not coughing. Objective Objective Vital Signs Date Time Temp Pulse Resp B/P (MAP) Pulse Ox O2 Delivery O2 Flow Rate FiO2 01/09/21 11:19 96 Nasal Cannula 3.0 01/09/21 11:00 98.4 79 18 111/56 (74) 98.4 Intake and Output 01/09/21 07:00 Intake Total 540 ml Output Total 200 ml Balance 340 ml Intake Oral 540 ml Output Urine Total 200 ml Physical Exam Abdomen: Soft Heart: Regular rate, Normal S1, Normal S2 Extremities: No edema General: Alert HEENT: Atraumatic Lungs: Other (chronic crackles RLL) Neck: Supple Neuro: Normal gait Psych/Mental Status: Mental status NL Skin: No rashes Assessment Assessment ProblemsAcute on chronic diastolic congestive heart failure. compensated 2. Leukocytosis. better 3. Acute bronchitis, possible RLL pneumonia. 4. Chronic obstructive pulmonary disease. with acute exacerbation 5. Acute on chronic hypoxic respiratory failure. 6. Diabetes mellitus type 2, treated with diet. 7. Hypertension. 8. Hyperlipidemia. 9. Hyperkalemia.resolved 10. Anemia of chronic disease 11. Severe protein-calorie malnutrition. 12. no aortic stenosis on recent echo 13. Restless leg syndrome. 14. Debility. pre renal azotemia worse Medical Problems: (1) Pressure ulcer of coccygeal region Status: Acute (2) Pulmonary edema Status: Acute (3) Shortness of breath Status: Acute Plan Plan of Care start gentle iv fluids bmp tomorrow off antibiotics continue oxygen and prednisone Comment Review of Relevant I have reviewed the following items lizbeth (where applicable) has been applied. Labs Laboratory Tests Test 01/07/21 11:42 01/07/21 16:56 01/07/21 20:43 01/08/21 07:23 Glucose (Fingerstick) 147 mg/dL (70-99) 155 mg/dL (70-99) 170 mg/dL (70-99) 108 mg/dL (70-99) Test 01/08/21 11:34 01/08/21 16:36 01/08/21 20:47 01/09/21 04:00 Glucose (Fingerstick) 111 mg/dL (70-99) 168 mg/dL (70-99) 114 mg/dL (70-99) White Blood Count 13.1 x10^3/uL (4.0-11.0) Red Blood Count 3.83 x10^6/uL (3.50-5.40) Hemoglobin 9.8 g/dL (12.0-15.5) Hematocrit 31.3 % (36.0-47.0) Mean Corpuscular Volume 82 fL (79-100) Mean Corpuscular Hemoglobin 25 pg (25-35) Mean Corpuscular Hemoglobin Concent 31 g/dL (31-37) Red Cell Distribution Width 16.3 % (11.5-14.5) Platelet Count 482 x10^3/uL (140-400) Neutrophils (%) (Auto) 79 % (31-73) Lymphocytes (%) (Auto) 13 % (24-48) Monocytes (%) (Auto) 8 % (0-9) Eosinophils (%) (Auto) 1 % (0-3) Basophils (%) (Auto) 0 % (0-3) Neutrophils # (Auto) 10.3 x10^3/uL (1.8-7.7) Lymphocytes # (Auto) 1.7 x10^3/uL (1.0-4.8) Monocytes # (Auto) 1.0 x10^3/uL (0.0-1.1) Eosinophils # (Auto) 0.1 x10^3/uL (0.0-0.7) Basophils # (Auto) 0.0 x10^3/uL (0.0-0.2) Sodium Level 139 mmol/L (136-145) Potassium Level 4.0 mmol/L (3.5-5.1) Chloride Level 94 mmol/L (98-107) Carbon Dioxide Level 40 mmol/L (21-32) Anion Gap 5 (6-14) Blood Urea Nitrogen 55 mg/dL (7-20) Creatinine 1.1 mg/dL (0.6-1.0) Estimated GFR (Cockcroft-Gault) 46.8 Glucose Level 77 mg/dL (70-99) Calcium Level 8.7 mg/dL (8.5-10.1) Test 01/09/21 07:37 Glucose (Fingerstick) 98 mg/dL (70-99) Laboratory Tests Test 01/08/21 11:34 01/08/21 16:36 01/08/21 20:47 01/09/21 04:00 Glucose (Fingerstick) 111 mg/dL (70-99) 168 mg/dL (70-99) 114 mg/dL (70-99) White Blood Count 13.1 x10^3/uL (4.0-11.0) Red Blood Count 3.83 x10^6/uL (3.50-5.40) Hemoglobin 9.8 g/dL (12.0-15.5) Hematocrit 31.3 % (36.0-47.0) Mean Corpuscular Volume 82 fL (79-100) Mean Corpuscular Hemoglobin 25 pg (25-35) Mean Corpuscular Hemoglobin Concent 31 g/dL (31-37) Red Cell Distribution Width 16.3 % (11.5-14.5) Platelet Count 482 x10^3/uL (140-400) Neutrophils (%) (Auto) 79 % (31-73) Lymphocytes (%) (Auto) 13 % (24-48) Monocytes (%) (Auto) 8 % (0-9) Eosinophils (%) (Auto) 1 % (0-3) Basophils (%) (Auto) 0 % (0-3) Neutrophils # (Auto) 10.3 x10^3/uL (1.8-7.7) Lymphocytes # (Auto) 1.7 x10^3/uL (1.0-4.8) Monocytes # (Auto) 1.0 x10^3/uL (0.0-1.1) Eosinophils # (Auto) 0.1 x10^3/uL (0.0-0.7) Basophils # (Auto) 0.0 x10^3/uL (0.0-0.2) Sodium Level 139 mmol/L (136-145) Potassium Level 4.0 mmol/L (3.5-5.1) Chloride Level 94 mmol/L (98-107) Carbon Dioxide Level 40 mmol/L (21-32) Anion Gap 5 (6-14) Blood Urea Nitrogen 55 mg/dL (7-20) Creatinine 1.1 mg/dL (0.6-1.0) Estimated GFR (Cockcroft-Gault) 46.8 Glucose Level 77 mg/dL (70-99) Calcium Level 8.7 mg/dL (8.5-10.1) Test 01/09/21 07:37 Glucose (Fingerstick) 98 mg/dL (70-99) Microbiology 01/04/21 Blood Culture - Preliminary, Resulted NO GROWTH AFTER 4 DAYS Medications Current Medications Albuterol/ Ipratropium (Duoneb) 3 ml 1X ONCE NEB Last administered on 01/04/21at 10:43; Start 01/04/21 at 10:30; Stop 01/04/21 at 10:38; Status DC Albuterol/ Ipratropium (Duoneb) 3 ml STK-MED ONCE .ROUTE ; Start 01/04/21 at 10:38; Stop 01/04/21 at 10:39; Status DC Furosemide (Lasix) 40 mg 1X ONCE IVP Last administered on 01/04/21at 16:00; Start 01/04/21 at 13:00; Stop 01/04/21 at 13:01; Status DC Albuterol Sulfate (Ventolin Neb Soln) 2.5 mg PRN Q4HRS PRN NEB SHORTNESS OF BREATH; Start 01/04/21 at 15:30 Alprazolam (Xanax) 0.5 mg BID PO Last administered on 01/09/21at 08:55; Start 01/04/21 at 21:00 Aspirin (Aspirin Chewable) 81 mg DAILY PO Last administered on 01/09/21at 08:55; Start 01/05/21 at 09:00 Bumetanide (Bumex) 1 mg DAILY PO ; Start 01/05/21 at 09:00; Stop 01/04/21 at 16:28; Status DC Docusate Sodium (Colace) 100 mg BID PO Last administered on 01/09/21at 08:54; Start 01/04/21 at 21:00 Fentanyl (Duragesic 12mcg/ Hr Patch) 1 patch Q3DAYS TD ; Start 01/07/21 at 09:00; Stop 01/04/21 at 16:28; Status DC Acetaminophen/ Hydrocodone Bitart (Lortab 5/325) 1 tab PRN Q8HRS PRN PO MODERATE PAIN; Start 01/04/21 at 15:30; Stop 01/04/21 at 16:37; Status DC Lidocaine (Lidoderm) 1 patch DAILY TP Last administered on 01/09/21 08:57; Start 01/04/21 at 16:00 Metoprolol Succinate (Toprol Xl) 25 mg DAILY PO ; Start 01/05/21 at 09:00; Stop 01/04/21 at 17:15; Status DC Pantoprazole Sodium (Protonix) 40 mg DAILYAC PO Last administered on 01/09/21 08:57; Start 01/05/21 at 07:30 Polyethylene Glycol (miraLAX PACKET) 17 gm PRN DAILY PRN PO CONSTIPATION Last administered on 01/06/21 08:59; Start 01/04/21 at 15:30 Prednisone (Prednisone) 20 mg DAILY PO ; Start 01/05/21 at 09:00; Stop 01/04/21 at 16:28; Status DC Pregabalin (Lyrica) 50 mg BID PO Last administered on 01/09/21 08:57; Start 01/04/21 at 21:00 Ropinirole HCl (Requip) 1 mg TID PO ; Start 01/04/21 at 16:00; Stop 01/04/21 at 16:28; Status DC Vitamin D (Vitamin D3) 1,000 unit DAILY PO Last administered on 01/09/21 08:55; Start 01/05/21 at 09:00 Duloxetine HCl (Cymbalta) 60 mg DAILY PO Last administered on 01/09/21 08:56; Start 01/05/21 at 09:00 Non-Formulary Medication (Fluticasone/ Salmeterol (Advair 250-50 Diskus)) 1 puff BID IH ; Start 01/04/21 at 21:00; Status UNV Non-Formulary Medication (Melatonin ) 1 tab QHS PO ; Start 01/04/21 at 21:00; Status UNV Nystatin (Nystop) 1 shady BID TP Last administered on 01/09/21 08:57; Start 01/04/21 at 21:00 Sertraline HCl (Zoloft) 100 mg DAILY PO Last administered on 01/09/21 08:56; Start 01/05/21 at 09:00 Miscellaneous (Lidoderm Patch Removal) 1 ea QHS MC Last administered on 01/08/21 21:00; Start 01/04/21 at 21:00 Albuterol Sulfate (Ventolin Neb Soln) 2.5 mg Q6HRS NEB ; Start 01/04/21 at 18:00; Stop 01/05/21 at 09:59; Status DC Budesonide (Pulmicort) 0.5 mg RTBID NEB Last administered on 01/09/21 07:19; Start 01/04/21 at 20:00 Fentanyl (Duragesic 25mcg/ Hr Patch) 1 patch Q3DAYS TD ; Start 01/04/21 at 17:00; Stop 01/05/21 at 12:02; Status DC Acetaminophen/ Hydrocodone Bitart (Lortab 5/325) 1 tab PRN Q4HRS PRN PO PAIN; Start 01/04/21 at 16:15; Stop 01/04/21 at 16:42; Status DC Ropinirole HCl (Requip) 2 mg TID PO Last administered on 01/09/21at 08:54; Start 01/04/21 at 21:00 Albuterol/ Ipratropium (Duoneb) 3 ml RTQID NEB Last administered on 01/09/21at 11:16; Start 01/04/21 at 20:00 Hydroxychloroquine Sulfate (Plaquenil) 200 mg BID PO Last administered on 01/09/21at 08:54; Start 01/04/21 at 21:00 Al Hydroxide/Mg Hydroxide (Mylanta Plus Xs) 30 ml PRN Q2HR PRN PO HEARTBURN / GAS; Start 01/04/21 at 16:15 Heparin Sodium (Porcine) (Heparin Sodium) 5,000 unit Q12HR SQ Last administered on 01/05/21at 08:18; Start 01/04/21 at 21:00; Stop 01/05/21 at 09:59; Status DC Methylprednisolone Sodium Succinate (SOLU-Medrol 40MG VIAL) 40 mg Q12HR IV Last administered on 01/07/21at 09:18; Start 01/04/21 at 21:00; Stop 01/07/21 at 13:46; Status DC Insulin Human Lispro (HumaLOG) 0-6 UNITS BG 300-39... TIDWMEALS SQ Last administered on 01/08/21at 16:47; Start 01/04/21 at 17:00 Furosemide (Lasix) 40 mg DAILY IVP Last administered on 01/06/21 09:06; Start 01/05/21 at 09:00; Stop 01/06/21 at 10:28; Status DC Sertraline HCl (Zoloft) 100 mg DAILY PO ; Start 01/05/21 at 09:00; Stop 01/04/21 at 16:37; Status DC Zolpidem Tartrate (Ambien) 5 mg PRN QHS PRN PO INSOMNIA Last administered on 01/06/21at 21:11; Start 01/04/21 at 16:15 Vitamin D (Vitamin D3) 1,000 unit DAILY PO ; Start 01/05/21 at 09:00; Status UNV Ceftriaxone Sodium (Rocephin) 1 gm Q24H IVP Last administered on 01/06/21at 17:50; Start 01/04/21 at 17:00; Stop 01/07/21 at 13:46; Status DC Metoprolol Succinate (Toprol Xl) 50 mg DAILY PO Last administered on 01/09/21at 08:56; Start 01/05/21 at 09:00 Metoprolol Succinate (Toprol Xl) 25 mg 1X ONCE PO Last administered on 01/04/21at 19:00; Start 01/04/21 at 17:30; Stop 01/04/21 at 17:31; Status DC Albuterol Sulfate (Ventolin Neb Soln) 2.5 mg QID NEB ; Start 01/05/21 at 13:00; Stop 01/06/21 at 10:04; Status DC Heparin Sodium (Porcine) (Heparin Sodium) 5,000 unit Q12HR SQ Last administered on 01/09/21at 09:10; Start 01/05/21 at 21:00 Fentanyl (Duragesic 25mcg/ Hr Patch) 1 patch Q3DAYS TD Last administered on 01/08/21at 08:45; Start 01/05/21 at 12:00 Bumetanide (Bumex) 1 mg DAILY PO Last administered on 01/07/21at 09:17; Start 01/07/21 at 09:00; Stop 01/07/21 at 10:56; Status DC Multivitamins (Thera M Plus) 1 tab DAILY PO Last administered on 01/09/21at 08:57; Start 01/07/21 at 09:00 Ascorbic Acid (Vitamin C) 500 mg DAILY PO Last administered on 01/09/21at 08:57; Start 01/07/21 at 09:00 Prednisone (Prednisone) 20 mg DAILY PO Last administered on 01/09/21at 08:55; Start 01/08/21 at 09:00 Acetaminophen (Tylenol) 650 mg PRN Q6HRS PRN PO MILD PAIN / TEMP > 100.3'F Last administered on 01/08/21at 02:35; Start 01/08/21 at 02:30 Active Scripts Active Klor-Con M20 (Potassium Chloride) 20 Meq Tab.er.prt 1 Tab PO DAILY 30 Days Prednisone (Prednisone) 10 Mg Tablet 20 Mg PO DAILY Bumetanide 1 Mg Tablet 1 Mg PO DAILY Metoprolol Succinate ( Xl ) (Metoprolol Succinate) 25 Mg Tab.er.24h 25 Mg PO DAILY Aspirin 81 Mg Tab.chew 81 Mg PO DAILY Ropinirole Hcl 1 Mg Tablet 1 Mg PO TID Alprazolam 0.5 Mg Tablet 0.5 Mg PO BID FENTANYL 12mcg/hr (Fentanyl) 1 Each Patch.td72 1 Patch TP Q3DAYS Lyrica (Pregabalin) 50 Mg Capsule 1 Cap PO BID Pantoprazole Sodium (Pantoprazole Sodium) 40 Mg Tablet. 40 Mg PO DAILY Hydrocodone-Apap 5-325 (Hydrocodone Bit/Acetaminophen) 1 Tab Tablet 1 Tab PO PRN Q8HRS PRN Reported Sertraline Hcl 100 Mg Tablet 100 Mg PO DAILY Miralax (Polyethylene Glycol 3350) 17 Gm Powd.pack 1 Packet PO DAILY PRN 2 Days dissolve in water Nystatin 1 Each Powder.ea. 1 Each MC BID Melatonin 5 Mg Tab.rapdis 1 Tab PO QHS 30 Days Lidocaine PATCH (Lidocaine) 1 Each Adh..patch 1 Each TP DAILY REMOVE AFTER 12 HOURS Cymbalta (Duloxetine Hcl) 60 Mg Capsule. 1 Cap PO DAILY Colace (Docusate Sodium) 100 Mg Capsule 1 Cap PO BID 30 Days Albuterol Sulfate Neb Soln (Albuterol Sulfate) 2.5 Mg/3 Ml Vial.neb 1 Vial NEB PRN Q4HRS Advair 250-50 Diskus (Fluticasone/Salmeterol) 1 Each Disk.w.dev 1 Puff IH BID Vitamin D (Cholecalciferol (Vitamin D3)) 1,000 Unit Capsule 1 Cap PO DAILY Vitals/I & O Vital Sign - Last 24 Hours 01/08/21 01/08/21 01/08/21 01/08/21 12:00 14:39 15:22 19:10 Temp 98.1 97.9 98.1 97.9 Pulse 84 75 Resp 18 22 B/P (MAP) 127/58 (81) 114/51 (72) Pulse Ox 95 99 95 92 O2 Delivery Nasal Cannula Nasal Cannula Nasal Cannula Nasal Cannula O2 Flow Rate 3.0 3.0 3.0 3.0 01/08/21 01/08/21 01/08/21 01/09/21 19:30 20:00 23:15 03:50 Temp 97.7 97.7 Pulse 75 75 Resp 19 20 B/P (MAP) 115/56 (75) 115/55 (75) Pulse Ox 96 95 94 O2 Delivery Nasal Cannula Nasal Cannula Nasal Cannula Nasal Cannula O2 Flow Rate 3.0 3.0 3.0 3.0 01/09/21 01/09/21 01/09/21 01/09/21 07:08 07:23 08:00 08:56 Temp 97.4 97.4 Pulse 78 84 Resp 18 B/P (MAP) 102/48 (66) 116/51 Pulse Ox 92 96 O2 Delivery Nasal Cannula Nasal Cannula Nasal Cannula O2 Flow Rate 3.0 3.0 3.0 01/09/21 01/09/21 11:00 11:19 Temp 98.4 98.4 Pulse 79 Resp 18 B/P (MAP) 111/56 (74) Pulse Ox 94 96 O2 Delivery Nasal Cannula Nasal Cannula O2 Flow Rate 3.0 3.0 Intake and Output 01/08/21 01/08/21 01/09/21 15:00 23:00 07:00 Intake Total 540 ml Output Total 200 ml 0 ml Balance 540 ml -200 ml 0 ml Justifications for Admission Other Justification Nutrition Consultation Dietary Evaluation: Recommendations by RD: Dietary education by RD, Protein supplementation Comments: ADA/cardiac diet glucerna tid REC mvi and vit c per wound protocal- discussed with TAMAR Woods Expected Outcomes/Goals: to meet >75% est nutr needs improved wound status Malnutrition Findings: Food and Nutrition Intake (Sev: <50% est energy req 5days Weight Status: Obese Fluid Accumulation (Severe): Severe SHYANNE,KARAN R MD Jan 09, 2021 11:31
[2021-01-09] MEDS: IV 1/2 NORMAL SALINE 1,000 ML IV SCH (12:31)
[2021-01-09 15:00] VITALS: BP 119/58
--- NOTE | 2021-01-09 17:16 | PDOC ---
PROGRESS NOTES Date of Service DATE: 01/09/21 TIME: 17:14 Subjective Subjective Patient seen and examined Objective Objective Vital Signs Date Time Temp Pulse Resp B/P (MAP) Pulse Ox O2 Delivery O2 Flow Rate FiO2 01/09/21 15:29 96 Nasal Cannula 3.0 01/09/21 15:00 98.1 75 18 119/58 (78) 98.1 Intake and Output 01/09/21 07:00 Intake Total 540 ml Output Total 200 ml Balance 340 ml Intake Oral 540 ml Output Urine Total 200 ml Physical Exam Abdomen: Normal bowel sounds Heart: Regular rate General: No acute distress Lungs: Other (Minimally decreased breath sounds) Assessment Assessment Problems Medical Problems: (1) Pressure ulcer of coccygeal region Status: Acute (2) Pulmonary edema Status: Acute (3) Shortness of breath Status: Acute Acute on chronic diastolic CHF: Echo with preserved LV systolic function. Improved today. Creatinine elevated. Mild fluids as above. Monitoring lab. AECOPD with possible pneumonia: SOA better Hypertension; controlled CAD; Moderate disease to RCA per [facility] in 2019. Recent MPI with no reversible ischemia or infarct. Diabetes, II. Hyperlipidemia PPM with SSS: Hwang. SR with chronic LBBB Moderate Hyperkalemia: resolved. Monitoring lab. Monitoring lab. Comment Review of Relevant I have reviewed the following items lizbeth (where applicable) has been applied. Labs Laboratory Tests Test 01/07/21 20:43 01/08/21 07:23 01/08/21 11:34 01/08/21 16:36 Glucose (Fingerstick) 170 mg/dL (70-99) 108 mg/dL (70-99) 111 mg/dL (70-99) 168 mg/dL (70-99) Test 01/08/21 20:47 01/09/21 04:00 01/09/21 07:37 01/09/21 12:08 Glucose (Fingerstick) 114 mg/dL (70-99) 98 mg/dL (70-99) 141 mg/dL (70-99) White Blood Count 13.1 x10^3/uL (4.0-11.0) Red Blood Count 3.83 x10^6/uL (3.50-5.40) Hemoglobin 9.8 g/dL (12.0-15.5) Hematocrit 31.3 % (36.0-47.0) Mean Corpuscular Volume 82 fL (79-100) Mean Corpuscular Hemoglobin 25 pg (25-35) Mean Corpuscular Hemoglobin Concent 31 g/dL (31-37) Red Cell Distribution Width 16.3 % (11.5-14.5) Platelet Count 482 x10^3/uL (140-400) Neutrophils (%) (Auto) 79 % (31-73) Lymphocytes (%) (Auto) 13 % (24-48) Monocytes (%) (Auto) 8 % (0-9) Eosinophils (%) (Auto) 1 % (0-3) Basophils (%) (Auto) 0 % (0-3) Neutrophils # (Auto) 10.3 x10^3/uL (1.8-7.7) Lymphocytes # (Auto) 1.7 x10^3/uL (1.0-4.8) Monocytes # (Auto) 1.0 x10^3/uL (0.0-1.1) Eosinophils # (Auto) 0.1 x10^3/uL (0.0-0.7) Basophils # (Auto) 0.0 x10^3/uL (0.0-0.2) Sodium Level 139 mmol/L (136-145) Potassium Level 4.0 mmol/L (3.5-5.1) Chloride Level 94 mmol/L (98-107) Carbon Dioxide Level 40 mmol/L (21-32) Anion Gap 5 (6-14) Blood Urea Nitrogen 55 mg/dL (7-20) Creatinine 1.1 mg/dL (0.6-1.0) Estimated GFR (Cockcroft-Gault) 46.8 Glucose Level 77 mg/dL (70-99) Calcium Level 8.7 mg/dL (8.5-10.1) Test 01/09/21 16:53 Glucose (Fingerstick) 170 mg/dL (70-99) Laboratory Tests Test 01/08/21 20:47 01/09/21 04:00 01/09/21 07:37 01/09/21 12:08 Glucose (Fingerstick) 114 mg/dL (70-99) 98 mg/dL (70-99) 141 mg/dL (70-99) White Blood Count 13.1 x10^3/uL (4.0-11.0) Red Blood Count 3.83 x10^6/uL (3.50-5.40) Hemoglobin 9.8 g/dL (12.0-15.5) Hematocrit 31.3 % (36.0-47.0) Mean Corpuscular Volume 82 fL (79-100) Mean Corpuscular Hemoglobin 25 pg (25-35) Mean Corpuscular Hemoglobin Concent 31 g/dL (31-37) Red Cell Distribution Width 16.3 % (11.5-14.5) Platelet Count 482 x10^3/uL (140-400) Neutrophils (%) (Auto) 79 % (31-73) Lymphocytes (%) (Auto) 13 % (24-48) Monocytes (%) (Auto) 8 % (0-9) Eosinophils (%) (Auto) 1 % (0-3) Basophils (%) (Auto) 0 % (0-3) Neutrophils # (Auto) 10.3 x10^3/uL (1.8-7.7) Lymphocytes # (Auto) 1.7 x10^3/uL (1.0-4.8) Monocytes # (Auto) 1.0 x10^3/uL (0.0-1.1) Eosinophils # (Auto) 0.1 x10^3/uL (0.0-0.7) Basophils # (Auto) 0.0 x10^3/uL (0.0-0.2) Sodium Level 139 mmol/L (136-145) Potassium Level 4.0 mmol/L (3.5-5.1) Chloride Level 94 mmol/L (98-107) Carbon Dioxide Level 40 mmol/L (21-32) Anion Gap 5 (6-14) Blood Urea Nitrogen 55 mg/dL (7-20) Creatinine 1.1 mg/dL (0.6-1.0) Estimated GFR (Cockcroft-Gault) 46.8 Glucose Level 77 mg/dL (70-99) Calcium Level 8.7 mg/dL (8.5-10.1) Test 01/09/21 16:53 Glucose (Fingerstick) 170 mg/dL (70-99) Microbiology 01/04/21 Blood Culture - Final, Complete NO GROWTH AFTER 5 DAYS Medications Current Medications Albuterol/ Ipratropium (Duoneb) 3 ml 1X ONCE NEB Last administered on 01/04/21 at 10:43; Start 01/04/21 at 10:30; Stop 01/04/21 at 10:38; Status DC Albuterol/ Ipratropium (Duoneb) 3 ml STK-MED ONCE .ROUTE ; Start 01/04/21 at 10:38; Stop 01/04/21 at 10:39; Status DC Furosemide (Lasix) 40 mg 1X ONCE IVP Last administered on 01/04/21at 16:00; Start 01/04/21 at 13:00; Stop 01/04/21 at 13:01; Status DC Albuterol Sulfate (Ventolin Neb Soln) 2.5 mg PRN Q4HRS PRN NEB SHORTNESS OF BREATH; Start 01/04/21 at 15:30 Alprazolam (Xanax) 0.5 mg BID PO Last administered on 01/09/21at 08:55; Start 01/04/21 at 21:00 Aspirin (Aspirin Chewable) 81 mg DAILY PO Last administered on 01/09/21at 08:55; Start 01/05/21 at 09:00 Bumetanide (Bumex) 1 mg DAILY PO ; Start 01/05/21 at 09:00; Stop 01/04/21 at 16:28; Status DC Docusate Sodium (Colace) 100 mg BID PO Last administered on 01/09/21at 08:54; Start 01/04/21 at 21:00 Fentanyl (Duragesic 12mcg/ Hr Patch) 1 patch Q3DAYS TD ; Start 01/07/21 at 09:00; Stop 01/04/21 at 16:28; Status DC Acetaminophen/ Hydrocodone Bitart (Lortab 5/325) 1 tab PRN Q8HRS PRN PO MODERATE PAIN; Start 01/04/21 at 15:30; Stop 01/04/21 at 16:37; Status DC Lidocaine (Lidoderm) 1 patch DAILY TP Last administered on 01/09/21at 08:57; Start 01/04/21 at 16:00 Metoprolol Succinate (Toprol Xl) 25 mg DAILY PO ; Start 01/05/21 at 09:00; Stop 01/04/21 at 17:15; Status DC Pantoprazole Sodium (Protonix) 40 mg DAILYAC PO Last administered on 01/09/21 08:57; Start 01/05/21 at 07:30 Polyethylene Glycol (miraLAX PACKET) 17 gm PRN DAILY PRN PO CONSTIPATION Last administered on 01/06/21 08:59; Start 01/04/21 at 15:30 Prednisone (Prednisone) 20 mg DAILY PO ; Start 01/05/21 at 09:00; Stop 01/04/21 at 16:28; Status DC Pregabalin (Lyrica) 50 mg BID PO Last administered on 01/09/21 08:57; Start 01/04/21 at 21:00 Ropinirole HCl (Requip) 1 mg TID PO ; Start 01/04/21 at 16:00; Stop 01/04/21 at 16:28; Status DC Vitamin D (Vitamin D3) 1,000 unit DAILY PO Last administered on 01/09/21 08:55; Start 01/05/21 at 09:00 Duloxetine HCl (Cymbalta) 60 mg DAILY PO Last administered on 01/09/21 08:56; Start 01/05/21 at 09:00 Non-Formulary Medication (Fluticasone/ Salmeterol (Advair 250-50 Diskus)) 1 puff BID IH ; Start 01/04/21 at 21:00; Status UNV Non-Formulary Medication (Melatonin ) 1 tab QHS PO ; Start 01/04/21 at 21:00; Status UNV Nystatin (Nystop) 1 shady BID TP Last administered on 01/09/21 08:57; Start 01/04/21 at 21:00 Sertraline HCl (Zoloft) 100 mg DAILY PO Last administered on 01/09/21 08:56; Start 01/05/21 at 09:00 Miscellaneous (Lidoderm Patch Removal) 1 ea QHS MC Last administered on 01/08/21 21:00; Start 01/04/21 at 21:00 Albuterol Sulfate (Ventolin Neb Soln) 2.5 mg Q6HRS NEB ; Start 01/04/21 at 18:00; Stop 01/05/21 at 09:59; Status DC Budesonide (Pulmicort) 0.5 mg RTBID NEB Last administered on 01/09/21 07:19; Start 01/04/21 at 20:00 Fentanyl (Duragesic 25mcg/ Hr Patch) 1 patch Q3DAYS TD ; Start 01/04/21 at 17:00; Stop 01/05/21 at 12:02; Status DC Acetaminophen/ Hydrocodone Bitart (Lortab 5/325) 1 tab PRN Q4HRS PRN PO PAIN; Start 01/04/21 at 16:15; Stop 01/04/21 at 16:42; Status DC Ropinirole HCl (Requip) 2 mg TID PO Last administered on 01/09/21at 14:55; Start 01/04/21 at 21:00 Albuterol/ Ipratropium (Duoneb) 3 ml RTQID NEB Last administered on 01/09/21at 15:27; Start 01/04/21 at 20:00 Hydroxychloroquine Sulfate (Plaquenil) 200 mg BID PO Last administered on 01/09/21at 08:54; Start 01/04/21 at 21:00 Al Hydroxide/Mg Hydroxide (Mylanta Plus Xs) 30 ml PRN Q2HR PRN PO HEARTBURN / GAS; Start 01/04/21 at 16:15 Heparin Sodium (Porcine) (Heparin Sodium) 5,000 unit Q12HR SQ Last administered on 01/05/21at 08:18; Start 01/04/21 at 21:00; Stop 01/05/21 at 09:59; Status DC Methylprednisolone Sodium Succinate (SOLU-Medrol 40MG VIAL) 40 mg Q12HR IV Last administered on 01/07/21at 09:18; Start 01/04/21 at 21:00; Stop 01/07/21 at 13:46; Status DC Insulin Human Lispro (HumaLOG) 0-6 UNITS BG 300-39... TIDWMEALS SQ Last administered on 01/08/21at 16:47; Start 01/04/21 at 17:00 Furosemide (Lasix) 40 mg DAILY IVP Last administered on 01/06/21at 09:06; Start 01/05/21 at 09:00; Stop 01/06/21 at 10:28; Status DC Sertraline HCl (Zoloft) 100 mg DAILY PO ; Start 01/05/21 at 09:00; Stop at 16:37; Status DC Zolpidem Tartrate (Ambien) 5 mg PRN QHS PRN PO INSOMNIA Last administered on 01/06/21 21:11; Start 01/04/21 at 16:15 Vitamin D (Vitamin D3) 1,000 unit DAILY PO ; Start 01/05/21 at 09:00; Status UNV Ceftriaxone Sodium (Rocephin) 1 gm Q24H IVP Last administered on 01/06/21at 17:50; Start 01/04/21 at 17:00; Stop 01/07/21 at 13:46; Status DC Metoprolol Succinate (Toprol Xl) 50 mg DAILY PO Last administered on 01/09/21 08:56; Start 01/05/21 at 09:00 Metoprolol Succinate (Toprol Xl) 25 mg 1X ONCE PO Last administered on 01/04/21at 19:00; Start 01/04/21 at 17:30; Stop 01/04/21 at 17:31; Status DC Albuterol Sulfate (Ventolin Neb Soln) 2.5 mg QID NEB ; Start 01/05/21 at 13:00; Stop 01/06/21 at 10:04; Status DC Heparin Sodium (Porcine) (Heparin Sodium) 5,000 unit Q12HR SQ Last administered on 01/09/21at 09:10; Start 01/05/21 at 21:00 Fentanyl (Duragesic 25mcg/ Hr Patch) 1 patch Q3DAYS TD Last administered on 01/08/21 08:45; Start 01/05/21 at 12:00 Bumetanide (Bumex) 1 mg DAILY PO Last administered on 01/07/21 09:17; Start 01/07/21 at 09:00; Stop 01/07/21 at 10:56; Status DC Multivitamins (Thera M Plus) 1 tab DAILY PO Last administered on 01/09/21 08:57; Start 01/07/21 at 09:00 Ascorbic Acid (Vitamin C) 500 mg DAILY PO Last administered on 01/09/21 08:57; Start 01/07/21 at 09:00 Prednisone (Prednisone) 20 mg DAILY PO Last administered on 01/09/21 08:55; Start 01/08/21 at 09:00 Acetaminophen (Tylenol) 650 mg PRN Q6HRS PRN PO MILD PAIN / TEMP > 100.3'F Last administered on 12/3/21at 02:35; Start 01/08/21 at 02:30 Sodium Chloride 1,000 ml @ 50 mls/hr Q20H IV Last administered on 01/09/21at 12 :31; Start 01/09/21 at 12:30 Active Scripts Active Klor-Con M20 (Potassium Chloride) 20 Meq Tab.er.prt 1 Tab PO DAILY 30 Days Prednisone (Prednisone) 10 Mg Tablet 20 Mg PO DAILY Bumetanide 1 Mg Tablet 1 Mg PO DAILY Metoprolol Succinate ( Xl ) (Metoprolol Succinate) 25 Mg Tab.er.24h 25 Mg PO DAILY Aspirin 81 Mg Tab.chew 81 Mg PO DAILY Ropinirole Hcl 1 Mg Tablet 1 Mg PO TID Alprazolam 0.5 Mg Tablet 0.5 Mg PO BID FENTANYL 12mcg/hr (Fentanyl) 1 Each Patch.td72 1 Patch TP Q3DAYS Lyrica (Pregabalin) 50 Mg Capsule 1 Cap PO BID Pantoprazole Sodium (Pantoprazole Sodium) 40 Mg Tablet.dr 40 Mg PO DAILY Hydrocodone-Apap 5-325 (Hydrocodone Bit/Acetaminophen) 1 Tab Tablet 1 Tab PO PRN Q8HRS PRN Reported Sertraline Hcl 100 Mg Tablet 100 Mg PO DAILY Miralax (Polyethylene Glycol 3350) 17 Gm Powd.pack 1 Packet PO DAILY PRN 2 Days dissolve in water Nystatin 1 Each Powder.ea. 1 Each MC BID Melatonin 5 Mg Tab.rapdis 1 Tab PO QHS 30 Days Lidocaine PATCH (Lidocaine) 1 Each Adh..patch 1 Each TP DAILY REMOVE AFTER 12 HOURS Cymbalta (Duloxetine Hcl) 60 Mg Capsule.dr 1 Cap PO DAILY Colace (Docusate Sodium) 100 Mg Capsule 1 Cap PO BID 30 Days Albuterol Sulfate Neb Soln (Albuterol Sulfate) 2.5 Mg/3 Ml Vial.neb 1 Vial NEB PRN Q4HRS Advair 250-50 Diskus (Fluticasone/Salmeterol) 1 Each Disk.w.dev 1 Puff IH BID Vitamin D (Cholecalciferol (Vitamin D3)) 1,000 Unit Capsule 1 Cap PO DAILY Vitals/I & O Vital Sign - Last 24 Hours 01/08/21 01/08/21 01/08/21 01/08/21 19:10 19:30 20:00 23:15 Temp 97.9 97.9 Pulse 75 75 Resp 22 19 B/P (MAP) 114/51 (72) 115/56 (75) Pulse Ox 92 96 95 O2 Delivery Nasal Cannula Nasal Cannula Nasal Cannula Nasal Cannula O2 Flow Rate 3.0 3.0 3.0 3.0 01/09/21 01/09/21 01/09/21 01/09/21 03:50 07:08 07:23 08:00 Temp 97.7 97.4 97.7 97.4 Pulse 75 78 Resp 20 18 B/P (MAP) 115/55 (75) 102/48 (66) Pulse Ox 94 92 96 O2 Delivery Nasal Cannula Nasal Cannula Nasal Cannula Nasal Cannula O2 Flow Rate 3.0 3.0 3.0 3.0 01/09/21 01/09/21 01/09/21 01/09/21 08:56 11:00 11:19 15:00 Temp 98.4 98.1 98.4 98.1 Pulse 84 79 75 Resp 18 18 B/P (MAP) 116/51 111/56 (74) 119/58 (78) Pulse Ox 94 96 95 O2 Delivery Nasal Cannula Nasal Cannula Nasal Cannula O2 Flow Rate 3.0 3.0 2.0 01/09/21 15:29 Pulse Ox 96 O2 Delivery Nasal Cannula O2 Flow Rate 3.0 Intake and Output 01/08/21 01/08/21 01/09/21 15:00 23:00 07:00 Intake Total 540 ml Output Total 200 ml 0 ml Balance 540 ml -200 ml 0 ml Justifications for Admission Other Justification Nutrition Consultation Dietary Evaluation: Recommendations by RD: Dietary education by RD, Protein supplementation Comments: ADA/cardiac diet glucerna tid REC mvi and vit c per wound protocal- discussed with TAMAR Woods Expected Outcomes/Goals: to meet >75% est nutr needs improved wound status Malnutrition Findings: Food and Nutrition Intake (Sev: <50% est energy req 5days Weight Status: Obese Fluid Accumulation (Severe): Severe CECILIA NIXON MD Jan 09, 2021 17:16
[2021-01-09 19:45] VITALS: BP 106/51
[2021-01-09] MEDS: PATCH REMOVAL. MC SCH (21:00)
[2021-01-09] MEDS: POLYETHYLENE GLYCOL 3350 17 GM PACKET. PO PRN (21:54)
[2021-01-09 23:45] VITALS: BP 125/53
[2021-01-10 03:25] VITALS: BP 133/62
[2021-01-10 04:58] LABS: CALCIUM 8.6 mg/dL (8.5-10.1); CREATININE 0.9 mg/dL (0.6-1.0)
[2021-01-10] MEDS: BUDESONIDE 0.5 MG/2 ML NEBU. NEB SCH (06:22)
[2021-01-10] MEDS: IPRATRPIUM/ALBUTEROL 0.5/2.5MG 3 ML NEBU. NEB SCH ×2 (06:22→11:38)
--- NOTE | 2021-01-10 06:41 | PDOC ---
Infectious Disease Note Subjective: Subjective Patient without complaints sob is better Vital Signs: Vital Signs Vital Signs Date Time Temp Pulse Resp B/P (MAP) Pulse Ox O2 Delivery O2 Flow Rate FiO2 01/10/21 06:24 96 Nasal Cannula 3.0 01/10/21 03:25 97.4 73 20 133/62 (85) 97.4 Physical Exam: PHYSICAL EXAM GENERAL: Alert, oriented x 3 female sitting upright in bed, on nasal O2, in no acute distress. HEENT: Normocephalic, atraumatic. Anicteric. No thrush. NECK: Supple. LUNGS: Crackles otherwise clear. HEART: S1, S2. PPM site looks clean. ABDOMEN: Soft, obese. Bowel sounds present, nontender, nondistended. EXTREMITIES: Trace edema, no cyanosis. DERMATOLOGIC: Warm, dry. Multiple bruises present, especially over both the upper extremity with some abrasions. NEUROLOGIC: Alert and oriented x 3, grossly nonfocal. PSYCHIATRIC: Calm and cooperative. Medications: Inpatient Meds: Medications reviewed. Labs: Lab Laboratory Tests Test 01/09/21 07:37 01/09/21 12:08 01/09/21 16:53 01/09/21 20:55 Glucose (Fingerstick) 98 mg/dL (70-99) 141 mg/dL (70-99) 170 mg/dL (70-99) 131 mg/dL (70-99) Test 01/10/21 03:40 Sodium Level 137 mmol/L (136-145) Potassium Level 4.0 mmol/L (3.5-5.1) Chloride Level 94 mmol/L (98-107) Carbon Dioxide Level 37 mmol/L (21-32) Anion Gap 6 (6-14) Blood Urea Nitrogen 47 mg/dL (7-20) Creatinine 0.9 mg/dL (0.6-1.0) Estimated GFR (Cockcroft-Gault) 59.0 Glucose Level 76 mg/dL (70-99) Calcium Level 8.6 mg/dL (8.5-10.1) Objective: Assessment: 1. Acute hypoxic respiratory failure, combination of congestive heart failure with underlying exacerbation off chronic obstructive pulmonary disease. 2. Leukocytosis, on steroids. 3. Acute on chronic diastolic heart failure. 4. Chronic obstructive pulmonary disease exacerbation. 5. Diabetes mellitus. 6. History of aortic stenosis. 7. History of permanent pacemaker. 8. Hyperkalemia, improved. Plan: Plan of Care WBC high due to steroids Monitor off abx cont supportive care EUSEBIO DARLING MD Jan 10, 2021 06:41
[2021-01-10 07:14] VITALS: BP 93/46
[2021-01-10] MEDS ORDERED: DEXTROSE 50% 25 GM / 50ML DISP.SYRIN. IV ONE (07:59)
[2021-01-10] MEDS: INSULIN LISPRO 300 UNITS/3 ML VIAL. SQ SCH ×2 (08:00→12:00)
[2021-01-10] MEDS: IV 1/2 NORMAL SALINE 1,000 ML IV SCH (08:09)
[2021-01-10] MEDS ORDERED: DEXTROSE 50% 25 GM / 50ML DISP.SYRIN. IV PRN (08:15)
[2021-01-10] MEDS: POLYETHYLENE GLYCOL 3350 17 GM PACKET. PO PRN (08:19)
[2021-01-10] MEDS: NYSTATIN TOPICAL POWDER 15GM BOTTLE. TP SCH (08:21)
[2021-01-10] MEDS: predniSONE 20 MG TABLET PO SCH (08:24)
[2021-01-10] MEDS: ASPIRIN CHEWABLE 81 MG TABLET. PO SCH (08:24)
[2021-01-10] MEDS: DOCUSATE SODIUM 100 MG CAPSULE. PO SCH (08:24)
[2021-01-10] MEDS: ALPRAZolam 0.5 MG TABLET PO SCH (08:24)
[2021-01-10] MEDS: PANTOPRAZOLE 40 MG TABLET.DR. PO SCH (08:24)
[2021-01-10] MEDS: DULoxetine HCL 30 MG CAPSULE.DR PO SCH (09:00)
[2021-01-10] MEDS: MULTIVITAMIN with MINERAL TABLET. PO SCH (09:00)
[2021-01-10] MEDS: METOPROLOL SUCC 24HR ER 50 MG TAB.ER.24H. PO SCH (09:00)
[2021-01-10] MEDS: HYDROXYCHLOROQUINE 200 MG TABLET PO SCH (09:00)
[2021-01-10] MEDS: rOPINIRole 1 MG TABLET. PO SCH (09:00)
--- NOTE | 2021-01-10 10:38 | PDOC ---
PROGRESS NOTES Date of Service DATE: 01/10/21 TIME: 10:34 Subjective Subjective lab reviewed. hydration status better. blood sugar 23 this morning by fingerstick without symptoms adn not receiving any hypoglycmiecs since 1 unit of insulin yesterday afternoon was not accurate . suspect problem iwth glucose meter. her blood sugars have not been low before and she takes prednisone currently. feels well. not short of breath.wants to go home. Objective Objective Vital Signs Date Time Temp Pulse Resp B/P (MAP) Pulse Ox O2 Delivery O2 Flow Rate FiO2 01/10/21 07:14 97.4 94 21 93/46 (62) 93 Nasal Cannula 3.0 97.4 Intake and Output 01/10/21 07:00 Intake Total 658 ml Output Total 300 ml Balance 358 ml Intake Oral 658 ml Output Urine Total 300 ml # Voids 1 Physical Exam Abdomen: Soft Heart: Regular rate, Normal S1, Normal S2 Extremities: No edema General: Alert HEENT: Atraumatic Lungs: Other (chronic crackles right base) Neuro: Normal speech Psych/Mental Status: Mental status NL Skin: No rashes Assessment Assessment ProblemsAcute on chronic diastolic congestive heart failure. compensated 2. Leukocytosis. better 3. Acute bronchitis, possible RLL pneumonia. 4. Chronic obstructive pulmonary disease. with acute exacerbation 5. Acute on chronic hypoxic respiratory failure. 6. Diabetes mellitus type 2, treated with diet. suspect inaccurate blood sugar with glucose meter. doubt blood sugar 23 as she had no symptoms. 7. Hypertension. 8. Hyperlipidemia. 9. Hyperkalemia.resolved 10. Anemia of chronic disease 11. Severe protein-calorie malnutrition. 12. no aortic stenosis on recent echo 13. Restless leg syndrome. 14. Debility. pre renal azotemia improved Medical Problems: (1) Pressure ulcer of coccygeal region Status: Acute (2) Pulmonary edema Status: Acute (3) Shortness of breath Status: Acute Plan Plan of Care dismiss today with home health Comment Review of Relevant I have reviewed the following items lizbeth (where applicable) has been applied. Labs Laboratory Tests Test 01/08/21 11:34 01/08/21 16:36 01/08/21 20:47 01/09/21 04:00 Glucose (Fingerstick) 111 mg/dL (70-99) 168 mg/dL (70-99) 114 mg/dL (70-99) White Blood Count 13.1 x10^3/uL (4.0-11.0) Red Blood Count 3.83 x10^6/uL (3.50-5.40) Hemoglobin 9.8 g/dL (12.0-15.5) Hematocrit 31.3 % (36.0-47.0) Mean Corpuscular Volume 82 fL (79-100) Mean Corpuscular Hemoglobin 25 pg (25-35) Mean Corpuscular Hemoglobin Concent 31 g/dL (31-37) Red Cell Distribution Width 16.3 % (11.5-14.5) Platelet Count 482 x10^3/uL (140-400) Neutrophils (%) (Auto) 79 % (31-73) Lymphocytes (%) (Auto) 13 % (24-48) Monocytes (%) (Auto) 8 % (0-9) Eosinophils (%) (Auto) 1 % (0-3) Basophils (%) (Auto) 0 % (0-3) Neutrophils # (Auto) 10.3 x10^3/uL (1.8-7.7) Lymphocytes # (Auto) 1.7 x10^3/uL (1.0-4.8) Monocytes # (Auto) 1.0 x10^3/uL (0.0-1.1) Eosinophils # (Auto) 0.1 x10^3/uL (0.0-0.7) Basophils # (Auto) 0.0 x10^3/uL (0.0-0.2) Sodium Level 139 mmol/L (136-145) Potassium Level 4.0 mmol/L (3.5-5.1) Chloride Level 94 mmol/L (98-107) Carbon Dioxide Level 40 mmol/L (21-32) Anion Gap 5 (6-14) Blood Urea Nitrogen 55 mg/dL (7-20) Creatinine 1.1 mg/dL (0.6-1.0) Estimated GFR (Cockcroft-Gault) 46.8 Glucose Level 77 mg/dL (70-99) Calcium Level 8.7 mg/dL (8.5-10.1) Test 01/09/21 07:37 01/09/21 12:08 01/09/21 16:53 01/09/21 20:55 Glucose (Fingerstick) 98 mg/dL (70-99) 141 mg/dL (70-99) 170 mg/dL (70-99) 131 mg/dL (70-99) Test 01/10/21 03:40 01/10/21 07:58 01/10/21 08:16 01/10/21 08:36 Sodium Level 137 mmol/L (136-145) Potassium Level 4.0 mmol/L (3.5-5.1) Chloride Level 94 mmol/L (98-107) Carbon Dioxide Level 37 mmol/L (21-32) Anion Gap 6 (6-14) Blood Urea Nitrogen 47 mg/dL (7-20) Creatinine 0.9 mg/dL (0.6-1.0) Estimated GFR (Cockcroft-Gault) 59.0 Glucose Level 76 mg/dL (70-99) Calcium Level 8.6 mg/dL (8.5-10.1) Glucose (Fingerstick) 23 mg/dL (70-99) 49 mg/dL (70-99) 125 mg/dL (70-99) Test 01/10/21 09:00 Glucose Level 208 mg/dL (70-99) Laboratory Tests Test 01/09/21 12:08 01/09/21 16:53 01/09/21 20:55 01/10/21 03:40 Glucose (Fingerstick) 141 mg/dL (70-99) 170 mg/dL (70-99) 131 mg/dL (70-99) Sodium Level 137 mmol/L (136-145) Potassium Level 4.0 mmol/L (3.5-5.1) Chloride Level 94 mmol/L (98-107) Carbon Dioxide Level 37 mmol/L (21-32) Anion Gap 6 (6-14) Blood Urea Nitrogen 47 mg/dL (7-20) Creatinine 0.9 mg/dL (0.6-1.0) Estimated GFR (Cockcroft-Gault) 59.0 Glucose Level 76 mg/dL (70-99) Calcium Level 8.6 mg/dL (8.5-10.1) Test 01/10/21 07:58 01/10/21 08:16 01/10/21 08:36 01/10/21 09:00 Glucose (Fingerstick) 23 mg/dL (70-99) 49 mg/dL (70-99) 125 mg/dL (70-99) Glucose Level 208 mg/dL (70-99) Microbiology 01/04/21 Blood Culture - Final, Complete NO GROWTH AFTER 5 DAYS Medications Current Medications Albuterol/ Ipratropium (Duoneb) 3 ml 1X ONCE NEB Last administered on 01/04/21at 10:43; Start 01/04/21 at 10:30; Stop 01/04/21 at 10:38; Status DC Albuterol/ Ipratropium (Duoneb) 3 ml STK-MED ONCE .ROUTE ; Start 01/04/21 at 10:38; Stop 01/04/21 at 10:39; Status DC Furosemide (Lasix) 40 mg 1X ONCE IVP Last administered on 01/04/21at 16:00; Start 01/04/21 at 13:00; Stop 01/04/21 at 13:01; Status DC Albuterol Sulfate (Ventolin Neb Soln) 2.5 mg PRN Q4HRS PRN NEB SHORTNESS OF BREATH; Start 01/04/21 at 15:30 Alprazolam (Xanax) 0.5 mg BID PO Last administered on 01/10/21at 08:24; Start 01/04/21 at 21:00 Aspirin (Aspirin Chewable) 81 mg DAILY PO Last administered on 01/10/21at 08:24; Start 01/05/21 at 09:00 Bumetanide (Bumex) 1 mg DAILY PO ; Start 01/05/21 at 09:00; Stop 01/04/21 at 16:28; Status DC Docusate Sodium (Colace) 100 mg BID PO Last administered on 01/10/21at 08:24; Start 01/04/21 at 21:00 Fentanyl (Duragesic 12mcg/ Hr Patch) 1 patch Q3DAYS TD ; Start 01/07/21 at 09:00; Stop 01/04/21 at 16:28; Status DC Acetaminophen/ Hydrocodone Bitart (Lortab 5/325) 1 tab PRN Q8HRS PRN PO MODERATE PAIN; Start 01/04/21 at 15:30; Stop 01/04/21 at 16:37; Status DC Lidocaine (Lidoderm) 1 patch DAILY TP Last administered on 01/09/21at 08:57; Start 01/04/21 at 16:00 Metoprolol Succinate (Toprol Xl) 25 mg DAILY PO ; Start 01/05/21 at 09:00; Stop 01/04/21 at 17:15; Status DC Pantoprazole Sodium (Protonix) 40 mg DAILYAC PO Last administered on 01/10/21at 08:24; Start 01/05/21 at 07:30 Polyethylene Glycol (miraLAX PACKET) 17 gm PRN DAILY PRN PO CONSTIPATION Last administered on 01/10/21at 08:19; Start 01/04/21 at 15:30 Prednisone (Prednisone) 20 mg DAILY PO ; Start 01/05/21 at 09:00; Stop 01/04/21 at 16:28; Status DC Pregabalin (Lyrica) 50 mg BID PO Last administered on 01/09/21at 21:22; Start 01/04/21 at 21:00 Ropinirole HCl (Requip) 1 mg TID PO ; Start 01/04/21 at 16:00; Stop 01/04/21 at 16:28; Status DC Vitamin D (Vitamin D3) 1,000 unit DAILY PO Last administered on 01/09/21at 08:55; Start 01/05/21 at 09:00 Duloxetine HCl (Cymbalta) 60 mg DAILY PO Last administered on 01/09/21at 08:56; Start 01/05/21 at 09:00 Non-Formulary Medication (Fluticasone/ Salmeterol (Advair 250-50 Diskus)) 1 puff BID IH ; Start 01/04/21 at 21:00; Status UNV Non-Formulary Medication (Melatonin ) 1 tab QHS PO ; Start 01/04/21 at 21:00; Status UNV Nystatin (Nystop) 1 shady BID TP Last administered on 01/10/21at 08:21; Start 01/04/21 at 21:00 Sertraline HCl (Zoloft) 100 mg DAILY PO Last administered on 01/09/21at 08:56; Start 01/05/21 at 09:00 Miscellaneous (Lidoderm Patch Removal) 1 ea QHS MC Last administered on 01/09/21at 21:00; Start 01/04/21 at 21:00 Albuterol Sulfate (Ventolin Neb Soln) 2.5 mg Q6HRS NEB ; Start 01/04/21 at 18:00; Stop 01/05/21 at 09:59; Status DC Budesonide (Pulmicort) 0.5 mg RTBID NEB Last administered on 01/10/21 06:22; Start 01/04/21 at 20:00 Fentanyl (Duragesic 25mcg/ Hr Patch) 1 patch Q3DAYS TD ; Start 01/04/21 at 17:00; Stop 01/05/21 at 12:02; Status DC Acetaminophen/ Hydrocodone Bitart (Lortab 5/325) 1 tab PRN Q4HRS PRN PO PAIN; Start 01/04/21 at 16:15; Stop 01/04/21 at 16:42; Status DC Ropinirole HCl (Requip) 2 mg TID PO Last administered on 01/09/21 21:21; Start 01/04/21 at 21:00 Albuterol/ Ipratropium (Duoneb) 3 ml RTQID NEB Last administered on 01/10/21 06:22; Start 01/04/21 at 20:00 Hydroxychloroquine Sulfate (Plaquenil) 200 mg BID PO Last administered on 01/09/21at 21:21; Start 01/04/21 at 21:00 Al Hydroxide/Mg Hydroxide (Mylanta Plus Xs) 30 ml PRN Q2HR PRN PO HEARTBURN / GAS; Start 01/04/21 at 16:15 Heparin Sodium (Porcine) (Heparin Sodium) 5,000 unit Q12HR SQ Last administered on 01/05/21at 08:18; Start 01/04/21 at 21:00; Stop 01/05/21 at 09:59; Status DC Methylprednisolone Sodium Succinate (SOLU-Medrol 40MG VIAL) 40 mg Q12HR IV Last administered on 01/07/21at 09:18; Start 01/04/21 at 21:00; Stop 01/07/21 at 13:46; Status DC Insulin Human Lispro (HumaLOG) 0-6 UNITS BG 300-39... TIDWMEALS SQ Last administered on 01/09/21at 17:25; Start 01/04/21 at 17:00 Furosemide (Lasix) 40 mg DAILY IVP Last administered on 01/06/21at 09:06; Start 01/05/21 at 09:00; Stop 01/06/21 at 10:28; Status DC Sertraline HCl (Zoloft) 100 mg DAILY PO ; Start 01/05/21 at 09:00; Stop 01/04/21 at 16:37; Status DC Zolpidem Tartrate (Ambien) 5 mg PRN QHS PRN PO INSOMNIA Last administered on 01/06/21at 21:11; Start 01/04/21 at 16:15 Vitamin D (Vitamin D3) 1,000 unit DAILY PO ; Start 01/05/21 at 09:00; Status UNV Ceftriaxone Sodium (Rocephin) 1 gm Q24H IVP Last administered on 01/06/21at 17:50; Start 01/04/21 at 17:00; Stop 01/07/21 at 13:46; Status DC Metoprolol Succinate (Toprol Xl) 50 mg DAILY PO Last administered on 01/09/21at 08:56; Start 01/05/21 at 09:00 Metoprolol Succinate (Toprol Xl) 25 mg 1X ONCE PO Last administered on 01/04/21at 19:00; Start 01/04/21 at 17:30; Stop 01/04/21 at 17:31; Status DC Albuterol Sulfate (Ventolin Neb Soln) 2.5 mg QID NEB ; Start 01/05/21 at 13:00; Stop 01/06/21 at 10:04; Status DC Heparin Sodium (Porcine) (Heparin Sodium) 5,000 unit Q12HR SQ Last administered on 01/09/21at 21:29; Start 01/05/21 at 21:00 Fentanyl (Duragesic 25mcg/ Hr Patch) 1 patch Q3DAYS TD Last administered on 01/08/21at 08:45; Start 01/05/21 at 12:00 Bumetanide (Bumex) 1 mg DAILY PO Last administered on 01/07/21at 09:17; Start 01/07/21 at 09:00; Stop 01/07/21 at 10:56; Status DC Multivitamins (Thera M Plus) 1 tab DAILY PO Last administered on 01/09/21at 08:57; Start 01/07/21 at 09:00 Ascorbic Acid (Vitamin C) 500 mg DAILY PO Last administered on 01/09/21at 08:57; Start 01/07/21 at 09:00 Prednisone (Prednisone) 20 mg DAILY PO Last administered on 01/10/21at 08:24; Start 01/08/21 at 09:00 Acetaminophen (Tylenol) 650 mg PRN Q6HRS PRN PO MILD PAIN / TEMP > 100.3'F Last administered on 01/08/21at 02:35; Start 01/08/21 at 02:30 Sodium Chloride 1,000 ml @ 50 mls/hr Q20H IV Last administered on 01/10/21at 08:09; Start 01/09/21 at 12:30 Dextrose (Dextrose 50%-Water Syringe) 25 gm STK-MED ONCE IV ; Start 01/10/21 at 07:59; Stop 01/10/21 at 07:59; Status DC Dextrose (Dextrose 50%-Water Syringe) 12.5 gm PRN Q15MIN PRN IV SEE COMMENTS Last administered on 01/10/21at 08:05; Start 01/10/21 at 08:15 Active Scripts Active Klor-Con M20 (Potassium Chloride) 20 Meq Tab.er.prt 1 Tab PO DAILY 30 Days Prednisone (Prednisone) 10 Mg Tablet 20 Mg PO DAILY Bumetanide 1 Mg Tablet 1 Mg PO DAILY Metoprolol Succinate ( Xl ) (Metoprolol Succinate) 25 Mg Tab.er.24h 25 Mg PO DAILY Aspirin 81 Mg Tab.chew 81 Mg PO DAILY Ropinirole Hcl 1 Mg Tablet 1 Mg PO TID Alprazolam 0.5 Mg Tablet 0.5 Mg PO BID FENTANYL 12mcg/hr (Fentanyl) 1 Each Patch.td72 1 Patch TP Q3DAYS Lyrica (Pregabalin) 50 Mg Capsule 1 Cap PO BID Pantoprazole Sodium (Pantoprazole Sodium) 40 Mg Tablet.dr 40 Mg PO DAILY Hydrocodone-Apap 5-325 (Hydrocodone Bit/Acetaminophen) 1 Tab Tablet 1 Tab PO PRN Q8HRS PRN Reported Sertraline Hcl 100 Mg Tablet 100 Mg PO DAILY Miralax (Polyethylene Glycol 3350) 17 Gm Powd.pack 1 Packet PO DAILY PRN 2 Days dissolve in water Nystatin 1 Each Powder.ea. 1 Each MC BID Melatonin 5 Mg Tab.rapdis 1 Tab PO QHS 30 Days Lidocaine PATCH (Lidocaine) 1 Each Adh..patch 1 Each TP DAILY REMOVE AFTER 12 HOURS Cymbalta (Duloxetine Hcl) 60 Mg Capsule.dr 1 Cap PO DAILY Colace (Docusate Sodium) 100 Mg Capsule 1 Cap PO BID 30 Days Albuterol Sulfate Neb Soln (Albuterol Sulfate) 2.5 Mg/3 Ml Vial.neb 1 Vial NEB PRN Q4HRS Advair 250-50 Diskus (Fluticasone/Salmeterol) 1 Each Disk.w.dev 1 Puff IH BID Vitamin D (Cholecalciferol (Vitamin D3)) 1,000 Unit Capsule 1 Cap PO DAILY Vitals/I & O Vital Sign - Last 24 Hours 01/09/21 01/09/21 01/09/21 01/09/21 11:00 11:19 15:00 15:29 Temp 98.4 98.1 98.4 98.1 Pulse 79 75 Resp 18 18 B/P (MAP) 111/56 (74) 119/58 (78) Pulse Ox 94 96 95 96 O2 Delivery Nasal Cannula Nasal Cannula Nasal Cannula Nasal Cannula O2 Flow Rate 3.0 3.0 2.0 3.0 01/09/21 01/09/21 01/09/21 01/09/21 19:45 20:00 20:11 20:13 Temp 97.8 97.8 Pulse 77 Resp 18 B/P (MAP) 106/51 (69) Pulse Ox 94 96 96 O2 Delivery Nasal Cannula Nasal Cannula Nasal Cannula Nasal Cannula O2 Flow Rate 2.0 3.0 3.0 3.0 01/09/21 01/10/21 01/10/21 01/10/21 23:45 03:25 06:24 06:24 Temp 97.7 97.4 97.7 97.4 Pulse 70 73 Resp 18 20 B/P (MAP) 125/53 (77) 133/62 (85) Pulse Ox 92 92 96 96 O2 Delivery Nasal Cannula Nasal Cannula Nasal Cannula Nasal Cannula O2 Flow Rate 2.0 3.0 3.0 3.0 01/10/21 07:14 Temp 97.4 97.4 Pulse 94 Resp 21 B/P (MAP) 93/46 (62) Pulse Ox 93 O2 Delivery Nasal Cannula O2 Flow Rate 3.0 Intake and Output 01/09/21 01/09/21 01/10/21 15:00 23:00 07:00 Intake Total 298 ml 360 ml Output Total 300 ml Balance 298 ml 360 ml -300 ml Justifications for Admission Other Justification Nutrition Consultation Dietary Evaluation: Recommendations by RD: Dietary education by RD, Protein supplementation Comments: ADA/cardiac diet glucerna tid REC mvi and vit c per wound protocal- discussed with TAMAR Woods Expected Outcomes/Goals: to meet >75% est nutr needs improved wound status Malnutrition Findings: Food and Nutrition Intake (Sev: <50% est energy req 5days Weight Status: Obese Fluid Accumulation (Severe): Severe KARAN KIMBLE MD Jan 10, 2021 10:38
[2021-01-10] MEDS ORDERED: PRED-220 PO (10:52)
[2021-01-10] MEDS ORDERED: ROPI1TAB4 PO (10:52)
[2021-01-10] MEDS ORDERED: POTA-121 PO (10:52)
[2021-01-10] MEDS ORDERED: BUME1TAB3 PO (10:52)
[2021-01-10] MEDS ORDERED: HYDR200T5 PO (10:52)
[2021-01-10] MEDS ORDERED: FENT1PAT15 TD (10:52)
[2021-01-10] MEDS ORDERED: ZOLP5TAB PO (10:52)
--- NOTE | 2021-01-10 10:55 | SNU/HH DC ---
DISCHARGE WITH HOME HEALTH DISCHARGE INFORMATION: Discharge Date: Jan 10, 2021 Final Diagnosis: Problems Medical Problems: (1) Pressure ulcer of coccygeal region Status: Acute (2) Pulmonary edema Status: Acute (3) Shortness of breath Status: Acute Condition on Discharge: Stable CODE STATUS: Code Status: DNR/DNI HOME HEALTH: Face to Face: I certify this patient is under my care and that I, or a nurse practitioner or physician's assistant professor of mathematics working with me, had a face to face encounter that meets the physician face to face encounter requirements with this patient on [01/10/21]. RN For Eval/Treatment: Yes Physical Therapy For: Evalulation/Treatment Occupational Therapy For: Evaluation/Treatment Pt Meets Homebound Status: Other: (unable to ambulate) POST DISCHARGE ORDERS: Activity Instructions for Disc: Activity as tolerated Weight Bearing Status after Di: As tolerated DIET AFTER DISCHARGE: cardiac and diabetic diet Wound/Incision Care: Change dressing CHECKS AFTER DISCHARGE: Checks after discharge: Check blood press - daily, Check blood sugar, ac/hs FOLLOW-UP: PCP to follow Home Health: dr. kimble Follow up with: dr. kimble next week Additional Instructions: start bumex 0.5 mg every other day on 01/15/21. start potassium chloride 20 meq 1 po every other day on 01/15/21 TREATMENT/EQUIPMENT ORDERS: Adaptive Equipment Issued: None Discharge Respiratory Equipmen: Oxygen CERTIFICATION STATEMENT: Certification Statement: Certification Statement: Based on the above finding, I certify that this patient is confined to the home and needs intermittent mcc care, physical therapy and/or speech therapy, or continues to need occupational therapy.~ This patient is under my care, and I have initiated the establishment of the plan of care.~ This patient will be followed by myself or a community physician who will periodically review the plan of care. Home Meds Active Scripts Ropinirole Hcl (ROPINIROLE HCL) 1 Mg Tablet, 2 MG PO TID for periodic limb movement disorde, #180 TAB Prov:KARAN KIMBLE MD 01/10/21 Zolpidem Tartrate (AMBIEN) 5 Mg Tablet, 5 MG PO PRN QHS PRN for INSOMNIA, #7 TAB Prov:KARAN KIMBLE MD 01/10/21 Fentanyl (FENTANYL 25mcg/hr) 1 Each Patch.td72, 1 PATCH TD Q3DAYS for chronic pain, #10 PATCH Prov:KARAN KIMBLE MD 01/10/21 Hydroxychloroquine Sulfate (HYDROXYCHLOROQUINE SULFATE) 200 Mg Tablet, 200 MG PO BID for polyarthritis, #60 TAB Prov:KARAN KIMBLE MD 01/10/21 Potassium Chloride (KLOR-CON M20) 20 Meq Tab.er.prt, 1 TAB PO qod for potassium supplement for 30 Days, TAB 0 Refills start this 01/15/21 Prov:KARAN KIMBLE MD 01/10/21 Prednisone (PREDNISONE ) 10 Mg Tablet, 20 MG PO DAILY for copd exacerbation for 4 Days, #8 TAB 2 tab daily for 2 days then 1 tab daily for 2 days and stop it Prov:KARAN KIMBLE MD 01/10/21 Bumetanide (BUMETANIDE) 1 Mg Tablet, 0.5 MG PO QODAY for chf, #30 TAB start 01/15/21 Prov:KARAN KIMBLE MD 01/10/21 Metoprolol Succinate (METOPROLOL SUCCINATE ( XL )) 25 Mg Tab.er.24h, 25 MG PO DAILY for chf, #30 TAB.SR Prov:KARAN KIMBLE MD 06/12/20 Aspirin (ASPIRIN) 81 Mg Tab.chew, 81 MG PO DAILY for non obstructive CAD, #30 TAB.CHEW Prov:KARAN KIMBLE MD 07/15/19 Alprazolam (ALPRAZOLAM) 0.5 Mg Tablet, 0.5 MG PO BID for anxiety, #60 TAB Prov:KARAN KIMBLE MD 07/15/19 Pregabalin (LYRICA) 50 Mg Capsule, 1 CAP PO BID for fibromyalgia, #60 CAP Prov:KARAN KIMBLE MD 01/23/19 Pantoprazole Sodium (PANTOPRAZOLE SODIUM ) 40 Mg Tablet.dr, 40 MG PO DAILY for gerd, #30 TAB.SR Prov:KARAN KIMBLE MD 01/13/19 Hydrocodone Bit/Acetaminophen (HYDROCODONE-APAP 5-325 ) 1 Tab Tablet, 1 TAB PO PRN Q8HRS PRN for PAIN, #30 TAB 0 Refills Prov:AKRAN KIMBLE MD 01/13/19 Reported Medications Sertraline Hcl (SERTRALINE HCL) 100 Mg Tablet, 100 MG PO DAILY for ANTI- DEPRESSANT, TAB 0 Refills 06/10/20 Polyethylene Glycol 3350 (MIRALAX) 17 Gm Powd.pack, 1 PACKET PO DAILY PRN for CONSTIPATION for 2 Days, #2 PACKET 0 Refills dissolve in water 06/10/20 Lidocaine (Lidocaine PATCH ) 1 Each Adh..patch, 1 EACH TP DAILY for FOR LOCAL PAIN, PATCH REMOVE AFTER 12 HOURS 06/10/20 Duloxetine Hcl (CYMBALTA) 60 Mg Capsule.dr, 1 CAP PO DAILY for unknown, #90 CAP 3 Refills 06/10/20 Docusate Sodium (COLACE) 100 Mg Capsule, 1 CAP PO BID for constipation for 30 Days, #60 CAP 0 Refills 06/10/20 Albuterol Sulfate (ALBUTEROL SULFATE NEB SOLN) 2.5 Mg/3 Ml Vial.neb, 1 VIAL NEB PRN Q4HRS for SOA, #50 VIAL 06/10/20 Fluticasone/Salmeterol (ADVAIR 250-50 DISKUS) 1 Each Disk.w.dev, 1 PUFF IH BID for SOA, #3 INHALER 3 Refills 06/10/20 Cholecalciferol (Vitamin D3) (VITAMIN D) 1,000 Unit Capsule, 1 CAP PO DAILY, #30 CAP 3 Refills 06/24/17 Discontinued Reported Medications Nystatin (NYSTATIN) 1 Each Powder.ea., 1 EACH MC BID for yeast, EACH 06/10/20 Melatonin (MELATONIN) 5 Mg Tab.rapdis, 1 TAB PO QHS for sleep for 30 Days, #30 TAB 0 Refills 06/10/20 Discontinued Scripts Ropinirole Hcl (ROPINIROLE HCL) 1 Mg Tablet, 1 MG PO TID for restless legs syndrome, #90 TAB Prov:KARAN KIMBLE MD 07/15/19 Fentanyl (FENTANYL 12mcg/hr) 1 Each Patch.td72, 1 PATCH TP Q3DAYS for chronic back pain, #10 PATCH Prov:KARAN KIMBLE MD 01/23/19 KARAN KIMBLE MD Jan 10, 2021 10:55
[2021-01-10 11:00] VITALS: BP 114/53
--- NOTE | 2021-01-10 11:03 | PDOC ---
Provider Note Date of Service: DATE: 01/10/21 TIME: 11:02 Provider Note discharge summary dictated # [id number] Justifications for Admission Other Justification KARAN KIMBLE MD Jan 10, 2021 11:03
[2021-01-10] MEDS: ASCORBIC ACID 500 MG TABLET PO SCH (11:31)
[2021-01-10] MEDS: CHOLECALCIFEROL (VITAMIN D3) 1,000 UNIT TABLET PO SCH (11:31)
[2021-01-10] MEDS: PREGABALIN 50 MG CAPSULE PO SCH (11:32)
[2021-01-10] MEDS: SERTRALINE 50 MG TABLET. PO SCH (11:32)
[2021-01-10] MEDS: LIDOCAINE (700MG/PATCH) PATCH. TP SCH (12:15)
--- NOTE | 2021-01-10 15:00 | NUR ---
Discharge Note: SYBIL AUGUSTINE [address] [place] [address] Discharge instructions and discharge home medications reviewed with [employer] and a copy given. All questions have been answered and understanding verbalized. Talked to caregiver rKupa on the phone. The following instructions and handouts were given: discharge instructions, med list, med education, CHF education, RX for prednisone. Discontinued lines and drains: Peripheral IV intact. Patient discharged to Home w/services with [facility] via Wheelchair at 1500. Discharge wound pictures taken & placed in chart.
--- NOTE | 2021-01-10 15:50 | PDOC ---
PROGRESS NOTES Date of Service DATE: 01/10/21 TIME: 15:48 Subjective Subjective Patient seen and examined Objective Objective Vital Signs Date Time Temp Pulse Resp B/P (MAP) Pulse Ox O2 Delivery O2 Flow Rate FiO2 01/10/21 11:40 96 Nasal Cannula 3.0 01/10/21 11:00 97.5 67 18 114/53 (73) 97.5 Intake and Output 01/10/21 07:00 Intake Total 658 ml Output Total 300 ml Balance 358 ml Intake Oral 658 ml Output Urine Total 300 ml # Voids 1 Physical Exam Abdomen: Normal bowel sounds Heart: Regular rate General: No acute distress Lungs: Other (Minimally decreased breath sounds) Assessment Assessment Problems Medical Problems: (1) Pressure ulcer of coccygeal region Status: Acute (2) Pulmonary edema Status: Acute (3) Shortness of breath Status: Acute Acute on chronic diastolic CHF: Echo with preserved LV systolic function. Patient is significantly improved today. Continue present treatments. Probably home later today. AECOPD with possible pneumonia: SOA better Hypertension; controlled CAD; Moderate disease to RCA per [facility] in 2019. Recent MPI with no reversible ischemia or infarct. Diabetes, II. Hyperlipidemia PPM with SSS: Hwang. SR with chronic LBBB Moderate Hyperkalemia: resolved. Comment Review of Relevant I have reviewed the following items lizbeth (where applicable) has been applied. Labs Laboratory Tests Test 01/08/21 16:36 01/08/21 20:47 01/09/21 04:00 01/09/21 07:37 Glucose (Fingerstick) 168 mg/dL (70-99) 114 mg/dL (70-99) 98 mg/dL (70-99) White Blood Count 13.1 x10^3/uL (4.0-11.0) Red Blood Count 3.83 x10^6/uL (3.50-5.40) Hemoglobin 9.8 g/dL (12.0-15.5) Hematocrit 31.3 % (36.0-47.0) Mean Corpuscular Volume 82 fL (79-100) Mean Corpuscular Hemoglobin 25 pg (25-35) Mean Corpuscular Hemoglobin Concent 31 g/dL (31-37) Red Cell Distribution Width 16.3 % (11.5-14.5) Platelet Count 482 x10^3/uL (140-400) Neutrophils (%) (Auto) 79 % (31-73) Lymphocytes (%) (Auto) 13 % (24-48) Monocytes (%) (Auto) 8 % (0-9) Eosinophils (%) (Auto) 1 % (0-3) Basophils (%) (Auto) 0 % (0-3) Neutrophils # (Auto) 10.3 x10^3/uL (1.8-7.7) Lymphocytes # (Auto) 1.7 x10^3/uL (1.0-4.8) Monocytes # (Auto) 1.0 x10^3/uL (0.0-1.1) Eosinophils # (Auto) 0.1 x10^3/uL (0.0-0.7) Basophils # (Auto) 0.0 x10^3/uL (0.0-0.2) Sodium Level 139 mmol/L (136-145) Potassium Level 4.0 mmol/L (3.5-5.1) Chloride Level 94 mmol/L (98-107) Carbon Dioxide Level 40 mmol/L (21-32) Anion Gap 5 (6-14) Blood Urea Nitrogen 55 mg/dL (7-20) Creatinine 1.1 mg/dL (0.6-1.0) Estimated GFR (Cockcroft-Gault) 46.8 Glucose Level 77 mg/dL (70-99) Calcium Level 8.7 mg/dL (8.5-10.1) Test 01/09/21 12:08 01/09/21 16:53 01/09/21 20:55 01/10/21 03:40 Glucose (Fingerstick) 141 mg/dL (70-99) 170 mg/dL (70-99) 131 mg/dL (70-99) Sodium Level 137 mmol/L (136-145) Potassium Level 4.0 mmol/L (3.5-5.1) Chloride Level 94 mmol/L (98-107) Carbon Dioxide Level 37 mmol/L (21-32) Anion Gap 6 (6-14) Blood Urea Nitrogen 47 mg/dL (7-20) Creatinine 0.9 mg/dL (0.6-1.0) Estimated GFR (Cockcroft-Gault) 59.0 Glucose Level 76 mg/dL (70-99) Calcium Level 8.6 mg/dL (8.5-10.1) Test 01/10/21 07:58 01/10/21 08:16 01/10/21 08:36 01/10/21 09:00 Glucose (Fingerstick) 23 mg/dL (70-99) 49 mg/dL (70-99) 125 mg/dL (70-99) Glucose Level 208 mg/dL (70-99) Test 01/10/21 12:05 Glucose (Fingerstick) 91 mg/dL (70-99) Laboratory Tests Test 01/09/21 16:53 01/09/21 20:55 01/10/21 03:40 01/10/21 07:58 Glucose (Fingerstick) 170 mg/dL (70-99) 131 mg/dL (70-99) 23 mg/dL (70-99) Sodium Level 137 mmol/L (136-145) Potassium Level 4.0 mmol/L (3.5-5.1) Chloride Level 94 mmol/L (98-107) Carbon Dioxide Level 37 mmol/L (21-32) Anion Gap 6 (6-14) Blood Urea Nitrogen 47 mg/dL (7-20) Creatinine 0.9 mg/dL (0.6-1.0) Estimated GFR (Cockcroft-Gault) 59.0 Glucose Level 76 mg/dL (70-99) Calcium Level 8.6 mg/dL (8.5-10.1) Test 01/10/21 08:16 01/10/21 08:36 01/10/21 09:00 01/10/21 12:05 Glucose (Fingerstick) 49 mg/dL (70-99) 125 mg/dL (70-99) 91 mg/dL (70-99) Glucose Level 208 mg/dL (70-99) Microbiology 01/04/21 Blood Culture - Final, Complete NO GROWTH AFTER 5 DAYS Medications Current Medications Albuterol/ Ipratropium (Duoneb) 3 ml 1X ONCE NEB Last administered on 01/04/21at 10:43; Start 01/04/21 at 10:30; Stop 01/04/21 at 10:38; Status DC Albuterol/ Ipratropium (Duoneb) 3 ml STK-MED ONCE .ROUTE ; Start 01/04/21 at 10:38; Stop 01/04/21 at 10:39; Status DC Furosemide (Lasix) 40 mg 1X ONCE IVP Last administered on 01/04/21at 16:00; Start 01/04/21 at 13:00; Stop 01/04/21 at 13:01; Status DC Albuterol Sulfate (Ventolin Neb Soln) 2.5 mg PRN Q4HRS PRN NEB SHORTNESS OF BREATH; Start 01/04/21 at 15:30 Alprazolam (Xanax) 0.5 mg BID PO Last administered on 01/10/21at 08:24; Start 01/04/21 at 21:00 Aspirin (Aspirin Chewable) 81 mg DAILY PO Last administered on 01/10/21at 08:24; Start 01/05/21 at 09:00 Bumetanide (Bumex) 1 mg DAILY PO ; Start 01/05/21 at 09:00; Stop 01/04/21 at 16:28; Status DC Docusate Sodium (Colace) 100 mg BID PO Last administered on 01/10/21at 08:24; Start 01/04/21 at 21:00 Fentanyl (Duragesic 12mcg/ Hr Patch) 1 patch Q3DAYS TD ; Start 01/07/21 at 09:00; Stop 01/04/21 at 16:28; Status DC Acetaminophen/ Hydrocodone Bitart (Lortab 5/325) 1 tab PRN Q8HRS PRN PO MODERATE PAIN; Start 01/04/21 at 15:30; Stop 01/04/21 at 16:37; Status DC Lidocaine (Lidoderm) 1 patch DAILY TP Last administered on 01/10/21at 12:15; Start 01/04/21 at 16:00 Metoprolol Succinate (Toprol Xl) 25 mg DAILY PO ; Start 01/05/21 at 09:00; Stop 01/04/21 at 17:15; Status DC Pantoprazole Sodium (Protonix) 40 mg DAILYAC PO Last administered on 01/10/21at 08:24; Start 01/05/21 at 07:30 Polyethylene Glycol (miraLAX PACKET) 17 gm PRN DAILY PRN PO CONSTIPATION Last administered on 01/10/21at 08:19; Start 01/04/21 at 15:30 Prednisone (Prednisone) 20 mg DAILY PO ; Start 01/05/21 at 09:00; Stop 01/04/21 at 16:28; Status DC Pregabalin (Lyrica) 50 mg BID PO Last administered on 01/10/21 11:32; Start 01/04/21 at 21:00 Ropinirole HCl (Requip) 1 mg TID PO ; Start 01/04/21 at 16:00; Stop 01/04/21 at 16:28; Status DC Vitamin D (Vitamin D3) 1,000 unit DAILY PO Last administered on 01/10/21at 11:31; Start 01/05/21 at 09:00 Duloxetine HCl (Cymbalta) 60 mg DAILY PO Last administered on 01/09/21 08:56; Start 01/05/21 at 09:00 Non-Formulary Medication (Fluticasone/ Salmeterol (Advair 250-50 Diskus)) 1 puff BID IH ; Start 01/04/21 at 21:00; Status UNV Non-Formulary Medication (Melatonin ) 1 tab QHS PO ; Start 01/04/21 at 21:00; Status UNV Nystatin (Nystop) 1 shady BID TP Last administered on 01/10/21at 08:21; Start 01/04/21 at 21:00 Sertraline HCl (Zoloft) 100 mg DAILY PO Last administered on 01/10/21 11:32; Start 01/05/21 at 09:00 Miscellaneous (Lidoderm Patch Removal) 1 ea QHS MC Last administered on 01/09/21at 21:00; Start 01/04/21 at 21:00 Albuterol Sulfate (Ventolin Neb Soln) 2.5 mg Q6HRS NEB ; Start 01/04/21 at 18:00; Stop 01/05/21 at 09:59; Status DC Budesonide (Pulmicort) 0.5 mg RTBID NEB Last administered on 01/10/21at 06:22; Start 01/04/21 at 20:00 Fentanyl (Duragesic 25mcg/ Hr Patch) 1 patch Q3DAYS TD ; Start 01/04/21 at 17:00; Stop 01/05/21 at 12:02; Status DC Acetaminophen/ Hydrocodone Bitart (Lortab 5/325) 1 tab PRN Q4HRS PRN PO PAIN; Start 01/04/21 at 16:15; Stop 01/04/21 at 16:42; Status DC Ropinirole HCl (Requip) 2 mg TID PO Last administered on 01/09/21at 21:21; Start 01/04/21 at 21:00 Albuterol/ Ipratropium (Duoneb) 3 ml RTQID NEB Last administered on 01/10/21at 11:38; Start 01/04/21 at 20:00 Hydroxychloroquine Sulfate (Plaquenil) 200 mg BID PO Last administered on 01/09/21at 21:21; Start 01/04/21 at 21:00 Al Hydroxide/Mg Hydroxide (Mylanta Plus Xs) 30 ml PRN Q2HR PRN PO HEARTBURN / GAS; Start 01/04/21 at 16:15 Heparin Sodium (Porcine) (Heparin Sodium) 5,000 unit Q12HR SQ Last administered on 01/05/21at 08:18; Start 01/04/21 at 21:00; Stop 01/05/21 at 09:59; Status DC Methylprednisolone Sodium Succinate (SOLU-Medrol 40MG VIAL) 40 mg Q12HR IV Last administered on 01/07/21at 09:18; Start 01/04/21 at 21:00; Stop 01/07/21 at 13:46; Status DC Insulin Human Lispro (HumaLOG) 0-6 UNITS BG 300-39... TIDWMEALS SQ Last administered on 01/09/21at 17:25; Start 01/04/21 at 17:00 Furosemide (Lasix) 40 mg DAILY IVP Last administered on 01/06/21at 09:06; Start 01/05/21 at 09:00; Stop 01/06/21 at 10:28; Status DC Sertraline HCl (Zoloft) 100 mg DAILY PO ; Start 01/05/21 at 09:00; Stop 01/04/21 at 16:37; Status DC Zolpidem Tartrate (Ambien) 5 mg PRN QHS PRN PO INSOMNIA Last administered on 01/06/21at 21:11; Start 01/04/21 at 16:15 Vitamin D (Vitamin D3) 1,000 unit DAILY PO ; Start 01/05/21 at 09:00; Status UNV Ceftriaxone Sodium (Rocephin) 1 gm Q24H IVP Last administered on 01/06/21at 17:50; Start 01/04/21 at 17:00; Stop 01/07/21 at 13:46; Status DC Metoprolol Succinate (Toprol Xl) 50 mg DAILY PO Last administered on 01/09/21at 08:56; Start 01/05/21 at 09:00 Metoprolol Succinate (Toprol Xl) 25 mg 1X ONCE PO Last administered on 01/04/21at 19:00; Start 01/04/21 at 17:30; Stop 01/04/21 at 17:31; Status DC Albuterol Sulfate (Ventolin Neb Soln) 2.5 mg QID NEB ; Start 01/05/21 at 13:00; Stop 01/06/21 at 10:04; Status DC Heparin Sodium (Porcine) (Heparin Sodium) 5,000 unit Q12HR SQ Last administered on 01/09/21at 21:29; Start 01/05/21 at 21:00; Stop 01/10/21 at 10:42; Status DC Fentanyl (Duragesic 25mcg/ Hr Patch) 1 patch Q3DAYS TD Last administered on 01/08/21at 08:45; Start 01/05/21 at 12:00 Bumetanide (Bumex) 1 mg DAILY PO Last administered on 01/07/21 09:17; Start 01/07/21 at 09:00; Stop 01/07/21 at 10:56; Status DC Multivitamins (Thera M Plus) 1 tab DAILY PO Last administered on 01/09/21 08:57; Start 01/07/21 at 09:00 Ascorbic Acid (Vitamin C) 500 mg DAILY PO Last administered on 01/10/21at 11:31; Start 01/07/21 at 09:00 Prednisone (Prednisone) 20 mg DAILY PO Last administered on 01/10/21 08:24; Start 01/08/21 at 09:00 Acetaminophen (Tylenol) 650 mg PRN Q6HRS PRN PO MILD PAIN / TEMP > 100.3'F Last administered on 01/08/21 02:35; Start 01/08/21 at 02:30 Sodium Chloride 1,000 ml @ 50 mls/hr Q20H IV Last administered on 01/10/21 08:09; Start 01/09/21 at 12:30; Stop 01/10/21 at 10:42; Status DC Dextrose (Dextrose 50%-Water Syringe) 25 gm STK-MED ONCE IV ; Start 01/10/21 at 07:59; Stop 01/10/21 at 07:59; Status DC Dextrose (Dextrose 50%-Water Syringe) 12.5 gm PRN Q15MIN PRN IV SEE COMMENTS Last administered on 01/10/21at 08:05; Start 01/10/21 at 08:15 Active Scripts Active Ropinirole Hcl 1 Mg Tablet 2 Mg PO TID Ambien (Zolpidem Tartrate) 5 Mg Tablet 5 Mg PO PRN QHS PRN FENTANYL 25mcg/hr (Fentanyl) 1 Each Patch.td72 1 Patch TD Q3DAYS Hydroxychloroquine Sulfate 200 Mg Tablet 200 Mg PO BID Klor-Con M20 (Potassium Chloride) 20 Meq Tab.er.prt 1 Tab PO QOD 30 Days start this 01/15/21 Prednisone (Prednisone) 10 Mg Tablet 20 Mg PO DAILY 4 Days 2 tab daily for 2 days then 1 tab daily for 2 days and stop it Bumetanide 1 Mg Tablet 0.5 Mg PO QODAY start 01/15/21 Metoprolol Succinate ( Xl ) (Metoprolol Succinate) 25 Mg Tab.er.24h 25 Mg PO DAILY Aspirin 81 Mg Tab.chew 81 Mg PO DAILY Alprazolam 0.5 Mg Tablet 0.5 Mg PO BID Lyrica (Pregabalin) 50 Mg Capsule 1 Cap PO BID Pantoprazole Sodium (Pantoprazole Sodium) 40 Mg Tablet. 40 Mg PO DAILY Hydrocodone-Apap 5-325 (Hydrocodone Bit/Acetaminophen) 1 Tab Tablet 1 Tab PO PRN Q8HRS PRN Reported Sertraline Hcl 100 Mg Tablet 100 Mg PO DAILY Miralax (Polyethylene Glycol 3350) 17 Gm Powd.pack 1 Packet PO DAILY PRN 2 Days dissolve in water Lidocaine PATCH (Lidocaine) 1 Each Adh..patch 1 Each TP DAILY REMOVE AFTER 12 HOURS Cymbalta (Duloxetine Hcl) 60 Mg Capsule. 1 Cap PO DAILY Colace (Docusate Sodium) 100 Mg Capsule 1 Cap PO BID 30 Days Albuterol Sulfate Neb Soln (Albuterol Sulfate) 2.5 Mg/3 Ml Vial.neb 1 Vial NEB PRN Q4HRS Advair 250-50 Diskus (Fluticasone/Salmeterol) 1 Each Disk.w.dev 1 Puff IH BID Vitamin D (Cholecalciferol (Vitamin D3)) 1,000 Unit Capsule 1 Cap PO DAILY Vitals/I & O Vital Sign - Last 24 Hours 01/09/21 01/09/21 01/09/21 01/09/21 19:45 20:00 20:11 20:13 Temp 97.8 97.8 Pulse 77 Resp 18 B/P (MAP) 106/51 (69) Pulse Ox 94 96 96 O2 Delivery Nasal Cannula Nasal Cannula Nasal Cannula Nasal Cannula O2 Flow Rate 2.0 3.0 3.0 3.0 01/09/21 01/10/21 01/10/21 01/10/21 23:45 03:25 06:24 06:24 Temp 97.7 97.4 97.7 97.4 Pulse 70 73 Resp 18 20 B/P (MAP) 125/53 (77) 133/62 (85) Pulse Ox 92 92 96 96 O2 Delivery Nasal Cannula Nasal Cannula Nasal Cannula Nasal Cannula O2 Flow Rate 2.0 3.0 3.0 3.0 01/10/21 01/10/21 01/10/21 01/10/21 07:14 08:00 11:00 11:40 Temp 97.4 97.5 97.4 97.5 Pulse 94 67 Resp 21 18 B/P (MAP) 93/46 (62) 114/53 (73) Pulse Ox 93 97 96 O2 Delivery Nasal Cannula Nasal Cannula Nasal Cannula Nasal Cannula O2 Flow Rate 3.0 3.0 3.0 3.0 Intake and Output 01/09/21 01/09/21 01/10/21 15:00 23:00 07:00 Intake Total 298 ml 360 ml Output Total 300 ml Balance 298 ml 360 ml -300 ml Justifications for Admission Other Justification Nutrition Consultation Dietary Evaluation: Recommendations by RD: Dietary education by RD, Protein supplementation Comments: ADA/cardiac diet glucerna tid REC mvi and vit c per wound protocal- discussed with TAMAR Woods Expected Outcomes/Goals: to meet >75% est nutr needs improved wound status Malnutrition Findings: Food and Nutrition Intake (Sev: <50% est energy req 5days Weight Status: Obese Fluid Accumulation (Severe): Severe CECILIA NIXNO MD Jan 10, 2021 15:50
--- NOTE | 2021-01-11 04:06 | DS ---
DATE OF DISCHARGE: 01/10/2021 LOCATION: She is in room 650. CONSULTANTS: Awais Lubin MD and Juvenal Pizarro MD, and Monster Hernandez MD. FINAL DIAGNOSES: 1. Acute on chronic diastolic congestive heart failure. 2. Acute bronchitis, possible right lower lobe pneumonia on CAT scan of the chest. 3. Leukocytosis, improved. 4. Chronic obstructive pulmonary disease with acute exacerbation secondary to acute bronchitis. 5. Acute on chronic hypoxic respiratory failure. 6. Diabetes mellitus type 2, treated with diet. She did have one low blood sugar early this morning with no symptoms with a blood sugar of 23 with a glucose meter and she did not receive any insulin in the last probably 16 hours. Does not take any long-acting insulin. Suspect it was just an abnormal glucose meter. Subsequent blood sugars have been fine. Her blood sugars before that, she did not have any hypoglycemia. 7. Hypertension. 8. Hyperlipidemia. 9. Hyperkalemia, resolved. 10. Anemia of chronic disease. 11. Severe protein-calorie malnutrition. 12. Restless legs syndrome/periodic limb movement disorder. 13. Debility. 14. Prerenal azotemia, improved with IV hydration. HOSPITAL COURSE: The patient is an 89-year-old white female with a history of chronic diastolic congestive heart failure; moderate aortic stenosis on a previous echocardiogram; chronic obstructive pulmonary disease; chronic hypoxic respiratory failure, maintained on oxygen per nasal cannula at home; diabetes mellitus type 2, treated with diet; hypertension; hyperlipidemia, who has a 1-week history of shortness of breath worsened over the weekend. She apparently was started on Zithromax as an outpatient for a 5-day course of treatment as she was coughing up some white sputum and she had some epigastric abdominal discomfort, sought help at the [facility] Emergency Room. In the Emergency Room, a chest x-ray was done, showed chronic bilateral interstitial lung infiltrates and superimposed pulmonary edema cannot be ruled out. Potassium was 5.6, BUN 17, and creatinine 0.7. ProBNP was increased at 3276, albumin 2.6. Troponin level was normal at 39. Lactic acid level 1.0. COVID-19 test was negative. She was admitted to the hospital and received IV Lasix 40 mg IV daily. BUN shot up to over 50 about 55, creatinine was about 1.0 or so and then she received cautious IV fluids, BUN improved to 47 today and her diuretics were discontinued. Her IV fluids will be discontinued today. She had a blood sugar of 23 this morning by glucose meter, which made no sense as she was asymptomatic and was not getting any insulin. She got one dose of regular insulin on a sliding scale with the blood sugar starting at 150 yesterday around 1:30 in the afternoon according to the nurse, but has no insulin since. blood sugars were okay and I believe she did receive some glucose at home. She does not take anything for diabetes. She was seen by various doctors including a cafe worker, including Dr. Hernandez, Infectious Disease doctor, Dr. Awais Lubin and also was seen by Dr. Pizarro for Pulmonary. Complete IV Solu-Medrol for COPD exacerbation, switched to prednisone, currently on 20 mg every day and she received nebulizer treatments. Budesonide as well as DuoNeb nebulizer treatments. At the time of dismissal, she did have crackles in the right lung, which is chronic. She has actually bilateral chronic crackles in her lungs due to interstitial lung disease. She was not short of breath and did not have any significant cough. She completed her course of antibiotics. She will be dismissed to home with home health. She will make an appointment to see Dr. Castelan in the office next week. Eats three meals a day. She will not be on any type of insulin medication or hypoglycemic or anything for diabetes other than diet. She will be dismissed to home on prednisone 20 mg every day for 2 days, 10 mg every day for two days and then she will be stopping prednisone; Advair 250/50 mcg 1 puff b.i.d.; albuterol nebulized treatments q.i.d. p.r.n.; alprazolam 0.5 mg b.i.d.; aspirin 81 mg every day; Bumex 0.5 mg every other day starting 01/15/2021; potassium chloride 20 mEq every other day, starting 01/15/2021; Colace 100 mg b.i.d.; Cymbalta 60 mg every day; fentanyl 25 mcg patch every 72 hours; [place] 5/325 one tablet t.i.d. p.r.n. for chronic pain, she has chronic low back pain; Lyrica 50 mg b.i.d.; melatonin 5 mg at bedtime; metoprolol succinate 25 mg every day; Plaquenil 200 mg every day; Protonix 40 mg every day; Requip 2 mg t.i.d.; sertraline 100 mg every day; vitamin D at 1000 units every day and Ambien 10 mg at bedtime. She will make appointment with Dr. Castelan in the office next week. She will be dismissed to home today with home health. Eat three meals a day. Adhere to a cardiac diabetic diet and she checks her sugars at home about once a day. KAREN/CHARU DR: Kenia TID: [id number]
== END 2021-01-10 15:00 | disposition home health service (06) | DRG 871 ==
LOC: ER 09:42 → 6 SOUTH 11:50
PROVIDERS: ADMIT Internal Medicine; ATTEND Internal Medicine
DX: A41.9 Sepsis, unspecified organism (principal); J18.9 Pneumonia, unspecified organism; I50.33 Acute on chronic diastolic (congestive) heart failure; J96.21 Acute and chronic respiratory failure with hypoxia; E43 Unspecified severe protein-calorie malnutrition; J44.0 Chronic obstructive pulmonary disease with (acute) lower respiratory infection; J44.1 Chronic obstructive pulmonary disease with (acute) exacerbation; J20.9 Acute bronchitis, unspecified; D63.8 Anemia in other chronic diseases classified elsewhere; E11.42 Type 2 diabetes mellitus with diabetic polyneuropathy; E78.5 Hyperlipidemia, unspecified; E87.5 Hyperkalemia; F02.80 Dementia in other diseases classified elsewhere, unspecified severity, without behavioral disturbance, psychotic disturbance, mood disturbance, and anxiety; G25.81 Restless legs syndrome; G30.9 Alzheimer's disease, unspecified; G47.61 Periodic limb movement disorder; I11.0 Hypertensive heart disease with heart failure; I25.10 Atherosclerotic heart disease of native coronary artery without angina pectoris; I27.29 Other secondary pulmonary hypertension; I35.0 Nonrheumatic aortic (valve) stenosis; I44.7 Left bundle-branch block, unspecified; L89.152 Pressure ulcer of sacral region, stage 2; M79.7 Fibromyalgia; N28.9 Disorder of kidney and ureter, unspecified; Z20.822 Contact with and (suspected) exposure to COVID-19; Z79.82 Long term (current) use of aspirin; Z87.01 Personal history of pneumonia (recurrent); Z87.440 Personal history of urinary (tract) infections; Z87.891 Personal history of nicotine dependence; Z90.49 Acquired absence of other specified parts of digestive tract; Z90.710 Acquired absence of both cervix and uterus; Z95.0 Presence of cardiac pacemaker; Z96.641 Presence of right artificial hip joint; Z99.3 Dependence on wheelchair; F32.A Depression, unspecified; F41.9 Anxiety disorder, unspecified; G89.29 Other chronic pain; K21.9 Gastro-esophageal reflux disease without esophagitis; M10.9 Gout, unspecified
CPT/HCPCS: 36415; 36600; 71045; 71250; 74176; 80048; 80053; 82150; 82553; 82728; 82805; 82947; 82962; 83540; 83550; 83605; 83690; 83880; 84484; 85007; 85025; 87040; 87426; 87804; 93005; 93306; 94640; 94760; J0696; J1644; J1815; J1940; J2920; J3490; J7512; U0003; U0005; 99285-25; G0378; J7626